=== PATIENT | female | born 1985 | race African-American/Black ===

== ENCOUNTER 2017-02-19 22:03 | Inpatient (IN) | payer MEDICAID ==
[~2017-02-19] VITALS: Ht 167.6 cm; Wt 112.9 kg
[2017-02-19 22:10] VITALS: BP 183/116
[2017-02-19] MEDS ORDERED: Ipratropium 0.02% Inh Soln 2.5ml UD HHN ONE (22:15)
[2017-02-19] MEDS ORDERED: Albuterol ud Inhalation HHN ONE (22:15)
[2017-02-19] MEDS ORDERED: HYDROmorphone 1mg/ml Carpuject IVP ONE (22:15)
--- NOTE | 2017-02-19 22:52 | Emergency Room Report ---
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 Also history of COPD. She presents with shortness of breath the last 2 weeks. Also with leg pain. No trauma. No nausea no vomiting. Worse with movement. Has no medication. Out of urine out of. Not on oxygen at home. She also recently gave a month ago. This is via . Allergies: Coded Allergies: No Known Allergies (Unverified , 02/19/17) Patient History Past Medical History: see triage record, old chart reviewed, COPD Past Surgical History: other Pertinent Family History: none Social History: Denies: smoking Last Menstrual Period: Last week Now: No Immunizations: other Reviewed Nursing Documentation: PMH: Agreed, PSxH: Agreed Nursing Documentation-PMH Past Medical History: No History, Except For Hx Hypertension: Yes Hx Asthma: Yes Hx Seizures: Yes Review of Systems Eye: Denies: blurred vision, eye pain ENT: Denies: ear pain, nose congestion, throat swelling Respiratory: Reports: shortness of breath, Denies: cough Cardiovascular: Denies: chest pain, palpitations Gastrointestinal: Denies: abdominal pain, diarrhea, nausea, vomiting Musculoskeletal: Reports: muscle pain, Denies: back pain, joint pain Skin: Denies: rash Neurological: Denies: headache, numbness Endocrine: Denies: increased thirst, increased urine Hematologic/Lymphatic: Denies: easy bruising All Other Systems: negative except mentioned in HPI Physical Exam Vital Signs Date Time Temp Pulse Resp B/P Pulse Ox O2 Delivery O2 Flow Rate FiO2 02/19/17 21:59 98.2 104 19 183/116 100 Nasal Cannula 4.0 02/19/17 22:26 32 vitals with high blood pressure and hypoxia Sp02 EP Interpretation: abnormal General Appearance: well appearing, alert, mild distress, obese Head: normocephalic, atraumatic Eyes: bilateral eye EOMI, bilateral eye PERRL ENT: hearing grossly normal, normal pharynx Neck: full range of motion, supple, no meningismus Respiratory: chest non-tender, decreased breath sounds Cardiovascular #1: regular rate, rhythm, no murmur Gastrointestinal: normal bowel sounds, non tender, no mass, no organomegaly, no bruit, non-distended Musculoskeletal: back normal, normal range of motion, other - Diffuse left flank tenderness. Psychiatric: mood/affect normal Skin: warm/dry Medical Decision Making Diagnostic Impression: Primary Impression: COPD exacerbation Additional Impressions: Left leg pain Chronic lung disease Morbid obesity ER Course Is a 32-year-old female presents with exacerbation chronic pain. No evidence of pneumonia. 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 She has a shunt. Her bicarbonate was also elevated. She is better controlled now. No evidence of DVT ultrasound is negative. Will start antibiotics and admit for further workup. Lab Results Impression labs with elevated bicarbonate EKG Diagnostic Results EKG Time: 23:23 Rate: normal Rhythm: NSR ST Segments: no acute changes Rhythm Strip Diag. Results Rhythm Strip Time: 23:23 EP Interpretation: yes Rate: 100 Rhythm: NSR, no PVC's Chest X-Ray Diagnostic Results Chest X-Ray Diagnostic Results : Chest X-Ray Ordered: Yes # of Views/Limited/Complete: 1 View Indication: Chest Pain EP Interpretation: Yes Interpretation: no effusion, no pneumothorax, other - Chronic interstitial changes Impression: No acute disease Interpreting ER Provider: Electronically signed by Fahad Zaman MD CT/MRI/US Diagnostic Results CT/MRI/US Diagnostic Results : Imaging Test Ordered: CT chest Impression Read by radiologist. Multiple bilateral area of central predominance bronchiolitis the ground glass in the opacity. Probably chronic. Last Vital Signs Date Time Temp Pulse Resp B/P Pulse Ox O2 Delivery O2 Flow Rate FiO2 02/19/17 22:27 106 18 97 Nasal Cannula 3.0 32 02/19/17 21:59 98.2 183/116 Status: unchanged Disposition: ADMITTED INPATIENT Condition: Serious FAHAD ZAMAN M.D. Feb 19, 2017 22:52
[2017-02-19 23:16] LABS: BASOPHILS % (AUTO) 0.7 % (0.0-2.0); EOSINOPHILS % (AUTO) 0.6 % (0.0-3.0); LYMPHOCYTES % (AUTO) 12.9 % (20.0-45.0); MEAN CORPUSCULAR HEMOGLOBIN 30.9 PG (27.0-31.0); MEAN CORPUSCULAR HGB CONC 30.9 G/DL (32.0-36.0); MEAN CORPUSCULAR VOLUME 100 FL (80-99); MEAN PLATELET VOLUME 8.8 FL (6.5-10.1); MONOCYTES % (AUTO) 6.3 % (1.0-10.0); NEUTROPHILS % (AUTO) 79.5 % (45.0-75.0); PLATELET COUNT 143 K/UL (150-450); RED CELL DISTRIBUTION WIDTH 13.9 % (11.6-14.8); WHITE BLOOD COUNT 9.4 K/UL (4.8-10.8)
[2017-02-19 23:30] LABS: TROPONIN I < 0.30 ng/mL (<=0.30)
[2017-02-19 23:33] LABS: ALANINE AMINOTRANSFERASE 14 U/L (3-33); ALBUMIN/GLOBULIN RATIO 1.4 (1.0-2.7); ANION GAP 5 (5-15); ASPARTATE AMINO TRANSFERASE 18 U/L (5-40); CALCIUM 9.5 mg/dL (8.6-10.2); CHLORIDE 98 mEQ/L (98-107); CREATININE 0.7 mg/dL (0.5-0.9); GLOMERULAR FILTRATION RATE > 60 mL/min (>60); HEMOLYSIS 20; POTASSIUM 3.5 mEQ/L (3.4-4.9); SODIUM 145 mEQ/L (135-145); TOTAL PROTEIN 7.4 g/dL (6.6-8.7)
[2017-02-19 23:40] LABS: CARBON DIOXIDE 42 mEQ/L (20-30)
[2017-02-19 23:44] LABS: CKMB 5.4 ng/mL (< 3.8); INR 0.9 (0.9-1.1); PROTHROMBIN TIME 9.3 SEC (9.30-11.50)
[2017-02-20] VITALS (8 sets, daily range): BP systolic 142–162; BP diastolic 55–102
[2017-02-20] MEDS ORDERED: Solu-MEDROL 125mg Inj IVP ONE (02:00)
[2017-02-20] MEDS ORDERED: Albuterol ud Inhalation HHN PRN (07:00)
[2017-02-20] MEDS ORDERED: Ketorolac 30mg Inj IV PRN (07:00)
[2017-02-20] MEDS ORDERED: Morphine Sulfate 4mg/ml Inj IVP PRN (07:00)
[2017-02-20] MEDS ORDERED: Promethazine/Codeine 5ml UD ORAL PRN (07:00)
[2017-02-20] MEDS ORDERED: LORazepam Inj 2mg/ml 1ml IV PRN (07:00)
[2017-02-20] MEDS ORDERED: Nitroglycerin Subl 0.4mg tab (Bottle Of 25) SL PRN (07:00)
[2017-02-20] MEDS: Theophylline ER 100mg ORAL SCH ×2 (08:48→20:38)
[2017-02-20] MEDS: Morphine Sulfate 2mg/ml Inj IVP PRN ×4 (08:49→22:46)
[2017-02-20] MEDS: Heparin 5000 units/ml inj SUBQ SCH ×2 (09:00→20:23)
--- NOTE | 2017-02-20 10:13 | Diagnostic Imaging Report ---
Clinical Indication: Shortness of breath Technique: Spiral acquisitions obtained through the chest. No IV contrast utilized, reason not stated. Multiplanar reconstructions generated. Total dose length product 03/18/43 mGycm. CTDIvol(s) 29 mGy. Dose reduction achieved using automated exposure control Comparison: None Findings:Patchy areas of groundglass opacity are seen distributed throughout both lungs but predominantly in the upper lobes. Atelectasis or scarring is seen in the left lower lobe. Some dense there are consolidative opacities are seen in the right lower lobe. No masses. No effusions. The heart size is normal. No pericardial effusion. No mediastinal or hilar mass or adenopathy. There are prominent but not frankly enlarged bilateral axillary nodes. The thyroid is diffusely enlarged, no focal abnormality. There is ventriculoperitoneal shunt tubing in the right chest wall. The bones are unremarkable. The included upper abdominal anatomy is remarkable for the presence of a 2 mm upper pole left kidney stone. Impression: Mosaic mosaic groundglass opacity in both lungs, as described. Broad differential includes infection, edema, interstitial disease, post inflammatory changes. Incidental finding 2 mm left upper pole renal stone This agrees with the preliminary interpretation provided overnight by [facility] teleradiology service. The CT scanner at [facility] is accredited by the [employer] and the scans are performed using protocols designed to limit radiation exposure to as low as reasonably achievable to attain images of sufficient resolution adequate for diagnostic evaluation.
--- NOTE | 2017-02-20 11:34 | Diagnostic Imaging Report ---
Indication: SOB Technique: One view of the chest Comparison: none Findings: Faint hazy parenchymal opacities are demonstrated bilaterally. The heart is upper limits of normal in size. No dense consolidation. No pleural effusions Impression: Hazy faint bilateral parenchymal opacities, nonspecific
[2017-02-20] MEDS: Solu-MEDROL 125mg Inj IV SCH ×3 (12:38→23:21)
[2017-02-20] MEDS ORDERED: Piperacillin/Tazobactam 2.25 GM in D5W 55 ML IV SCH (14:00)
[2017-02-20] MEDS: Zoysn 3.37gm in D5W 110ml IVPB SCH ×2 (14:27→22:02)
--- NOTE | 2017-02-20 15:13 | History and Physical ---
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 She presented to ER with shortness of breath the last 2 weeks. Also with leg pain. No trauma. No nausea no vomiting. Worse with movement. Has no medication. Out of urine out of. Not on oxygen at home. she is admitted for possible pneumonia. Allergies: Coded Allergies: No Known Allergies (Unverified , 02/19/17) Patient History Healthcare decision maker Resuscitation status Full Code Advanced Directive on File No Past Medical/Surgical History Past Medical/Surgical History: (1) Seizures (2) Ventriculo-peritoneal shunt status Review of Systems All Other Systems: negative except mentioned in HPI Physical Exam General Appearance: WD/WN Lines, tubes and drains: peripheral HEENT: normocephalic, anicteric Neck: non-tender Respiratory/Chest: chest wall non-tender, lungs clear Breasts: no masses Cardiovascular/Chest: normal rate Abdomen: normal bowel sounds, non tender Genitourinary/Rectal: normal genital exam, normal rectal exam Extremities: normal range of motion, non-tender Skin Exam: normal pigmentation Last 24 Hour Vital Signs Date Time Temp Pulse Resp B/P Pulse Ox O2 Delivery O2 Flow Rate FiO2 02/20/17 12:00 97.9 115 18 149/102 92 Room Air 02/20/17 08:00 96.8 104 20 158/98 93 Room Air 02/20/17 04:00 98.1 81 20 142/55 93 Nasal Cannula 2.0 02/20/17 02:53 98.4 90 20 156/86 92 Nasal Cannula 3.0 02/20/17 02:34 98.2 75 22 154/96 96 Nasal Cannula 3.0 32 02/20/17 01:50 75 22 154/96 96 3.0 02/20/17 00:00 83 19 162/102 95 Nasal Cannula 3.0 02/19/17 23:40 98.2 02/19/17 22:47 101 16 Nasal Cannula 3.0 02/19/17 22:27 106 18 97 Nasal Cannula 3.0 32 02/19/17 22:26 106 18 Nasal Cannula 3.0 32 02/19/17 22:10 98.2 19 183/116 100 Nasal Cannula 4.0 02/19/17 21:59 98.2 104 19 183/116 100 Nasal Cannula 4.0 Intake and Output 02/19/17 02/20/17 19:00 07:00 # Voids 1 Laboratory Tests Test 02/19/17 22:45 White Blood Count 9.4 K/UL (4.8-10.8) Red Blood Count 3.70 M/UL (4.20-5.40) L Hemoglobin 11.5 G/DL (12.0-16.0) L Hematocrit 37.1 % (37.0-47.0) Mean Corpuscular Volume 100 FL (80-99) H Mean Corpuscular Hemoglobin 30.9 PG (27.0-31.0) Mean Corpuscular Hemoglobin Concent 30.9 G/DL (32.0-36.0) L Red Cell Distribution Width 13.9 % (11.6-14.8) Platelet Count 143 K/UL (150-450) L Mean Platelet Volume 8.8 FL (6.5-10.1) Neutrophils (%) (Auto) 79.5 % (45.0-75.0) H Lymphocytes (%) (Auto) 12.9 % (20.0-45.0) L Monocytes (%) (Auto) 6.3 % (1.0-10.0) Eosinophils (%) (Auto) 0.6 % (0.0-3.0) Basophils (%) (Auto) 0.7 % (0.0-2.0) Prothrombin Time 9.3 SEC (9.30-11.50) Prothromb Time International Ratio 0.9 (0.9-1.1) Activated Partial Thromboplast Time 27 SEC (23-33) Sodium Level 145 mEQ/L (135-145) Potassium Level 3.5 mEQ/L (3.4-4.9) Chloride Level 98 mEQ/L (98-107) Carbon Dioxide Level 42 mEQ/L (20-30) *H Anion Gap 5 (5-15) Blood Urea Nitrogen 8 mg/dL (7-23) Creatinine 0.7 mg/dL (0.5-0.9) Estimat Glomerular Filtration Rate > 60 mL/min (>60) Glucose Level 73 mg/dL (74-106) L Calcium Level 9.5 mg/dL (8.6-10.2) Total Bilirubin 0.3 mg/dL (0.0-1.2) Aspartate Amino Transf (AST/SGOT) 18 U/L (5-40) Alanine Aminotransferase (ALT/SGPT) 14 U/L (3-33) Alkaline Phosphatase 56 U/L (35-104) Total Creatine Kinase 135 U/L (26-140) Creatine Kinase MB 5.4 ng/mL (< 3.8) H Creatine Kinase MB Relative Index 4.0 Troponin I < 0.30 ng/mL (<=0.30) Pro-B-Type Natriuretic Peptide 113 pg/mL (0-125) Total Protein 7.4 g/dL (6.6-8.7) Albumin 4.4 g/dL (3.5-5.2) Globulin 3.0 g/dL Albumin/Globulin Ratio 1.4 (1.0-2.7) Height (Feet): 5 Height (Inches): 6.00 Weight (Pounds): 249 Medications Current Medications Medications (Trade) Dose Ordered Sig/Selvin Route PRN Reason Start Time Stop Time Status Last Admin Dose Admin Albuterol/ Ipratropium (DuoNeb 0.5-3(2.5)mg/3ml) 3 ml EVERY 4 HOURS PRN HHN dyspnea 02/20/17 07:00 02/25/17 06:59 Dextrose STAT PRN IV Hypoglycemia 02/20/17 07:00 03/22/17 06:59 Heparin Sodium (Porcine) (Heparin 5000 units/ml) 5,000 units EVERY 12 HOURS SUBQ 02/20/17 09:00 03/22/17 08:59 Ketorolac Tromethamine (Toradol 30mg) 30 mg EVERY 8 HOURS PRN IV moderate pain 4-6 02/20/17 07:00 02/25/17 06:59 Lorazepam (Ativan 2mg/ml 1ml) 0.5 mg Q4H PRN IV For Anxiety 02/20/17 07:00 02/27/17 06:59 Methylprednisolone Sodium Succinate (Solu-MEDROL) 60 mg EVERY 6 HOURS IV 02/20/17 12:00 03/22/17 11:59 02/20/17 12:38 Morphine Sulfate (Morphine Sulfate) 2 mg EVERY 4 HOURS PRN IVP severe pain 7-10 02/20/17 07:00 02/27/17 06:59 02/20/17 14:28 Nitroglycerin (Ntg) 0.4 mg Q5M X 3 DOSES PRN SL Prn Chest Pain 02/20/17 07:00 03/22/17 06:59 Ondansetron HCl (Zofran) 4 mg Q6H PRN IVP Nausea & Vomiting 02/20/17 07:00 03/22/17 06:59 Piperacillin Sod/ Tazobactam Sod/ Dextrose (Zosyn/D5W) 110 ml @ 27.5 mls/hr EVERY 8 HOURS IVPB 02/20/17 14:00 02/25/17 13:59 02/20/17 14:27 Promethazine HCl/ Codeine (Phenergan with Codeine) 5 ml EVERY 6 HOURS PRN ORAL cough 02/20/17 07:00 03/22/17 06:59 Temazepam (Restoril) 15 mg HSPRN PRN ORAL Insomnia 02/20/17 07:00 02/27/17 06:59 Theophylline (Paresh-Dur) 100 mg EVERY 12 HOURS ORAL 02/20/17 09:00 03/22/17 08:59 02/20/17 08:48 Assessment/Plan Problem List: (1) Aspiration pneumonia ICD Codes: J69.0 - Pneumonitis due to inhalation of food and vomit SNOMED: 063898662 (2) COPD exacerbation ICD Codes: J44.1 - Chronic obstructive pulmonary disease with (acute) exacerbation SNOMED: 540581955, 017410735 (3) Ventriculo-peritoneal shunt status ICD Codes: Z98.2 - Presence of cerebrospinal fluid drainage device SNOMED: 49879002, 403953167 Assessment/Plan respiratory treatment IV anti biotics check sputum neuro evaluation CRISTINA BRAMBILA Feb 20, 2017 15:13
[2017-02-20 16:38] LABS: APPEARANCE,URINE SLIGHTLY CLOUDY; KETONES,URINE NEGATIVE (NEGATIVE); LEUKOCYTE ESTERASE ,URINE 1+ (NEGATIVE); NITRITE,URINE NEGATIVE (NEGATIVE); PH,URINE 6 (4.5-8.0); PROTEIN,URINE 4+ (NEGATIVE); UROBILINOGEN,URINE NORMAL MG/DL (0.0-1.0)
[2017-02-20 17:12] LABS: SQUAMOUS EPITHELIAL CELL,UR OCCASIONAL /LPF (NONE/OCC)
[2017-02-20 17:13] LABS: TRICHOMONAS,URINE OCCASIONAL /HPF
[2017-02-21] VITALS: BP 150/73
[2017-02-21] MEDS: Morphine Sulfate 2mg/ml Inj IVP PRN ×5 (02:50→20:49)
[2017-02-21 04:00] VITALS: BP 147/82
[2017-02-21] MEDS: Zoysn 3.37gm in D5W 110ml IVPB SCH ×4 (06:00→18:07)
[2017-02-21] MEDS: Solu-MEDROL 125mg Inj IV SCH ×3 (06:06→18:06)
[2017-02-21 06:23] LABS: MEAN CORPUSCULAR HEMOGLOBIN 31.3 PG (27.0-31.0); MEAN CORPUSCULAR HGB CONC 31.4 G/DL (32.0-36.0); MEAN CORPUSCULAR VOLUME 100 FL (80-99); PLATELET COUNT 182 K/UL (150-450); RED BLOOD COUNT 3.74 M/UL (4.20-5.40); RED CELL DISTRIBUTION WIDTH 13.4 % (11.6-14.8); WHITE BLOOD COUNT 10.2 K/UL (4.8-10.8)
[2017-02-21 06:37] LABS: ALANINE AMINOTRANSFERASE 10 U/L (3-33); ALBUMIN/GLOBULIN RATIO 1.3 (1.0-2.7); ASPARTATE AMINO TRANSFERASE 11 U/L (5-40); CHLORIDE 95 mEQ/L (98-107); CREATININE 0.8 mg/dL (0.5-0.9); CRP QUANT 0.6 mg/dL (< 0.5); GLOMERULAR FILTRATION RATE > 60 mL/min (>60); HEMOLYSIS 1; MAGNESIUM 1.9 mg/dL (1.7-2.5); PHOSPHORUS 3.2 mg/dL (2.5-4.8); SODIUM 141 mEQ/L (135-145); TOTAL PROTEIN 7.1 g/dL (6.6-8.7)
[2017-02-21 06:42] LABS: ANION GAP 5 (5-15)
[2017-02-21 06:49] LABS: CARBON DIOXIDE 41 mEQ/L (20-30)
[2017-02-21 08:00] VITALS: BP 150/82
[2017-02-21 08:31] LABS: ERYTHROCYTE SEDIMENTATION RATE 30 MM/HR (0-20)
[2017-02-21] MEDS: Theophylline ER 100mg ORAL SCH ×2 (08:58→20:49)
[2017-02-21] MEDS: Heparin 5000 units/ml inj SUBQ SCH ×2 (09:00→20:51)
[2017-02-21 12:00] VITALS: BP 147/87
--- NOTE | 2017-02-21 14:34 | Neurology Progress Note ---
Objective Physical Exam Last Vital Signs Date Time Temp Pulse Resp B/P Pulse Ox O2 Delivery O2 Flow Rate FiO2 02/21/17 12:00 97.9 102 20 147/87 94 Nasal Cannula 2.0 02/21/17 00:15 28 Laboratory Tests Test 02/20/17 16:00 02/21/17 05:00 Urine Color Pale yellow Urine Appearance Slightly cloudy Urine pH 6 (4.5-8.0) Urine Specific [place] 1.015 (1.005-1.035) Urine Protein 4+ (NEGATIVE) H Urine Glucose (UA) Negative (NEGATIVE) Urine Ketones Negative (NEGATIVE) Urine Occult Blood Negative (NEGATIVE) Urine Nitrite Negative (NEGATIVE) Urine Bilirubin Negative (NEGATIVE) Urine Urobilinogen Normal MG/DL (0.0-1.0) Urine Leukocyte Esterase 1+ (NEGATIVE) H Urine RBC 2-4 /HPF (0 - 2) H Urine WBC 2-4 /HPF (0 - 2) Urine Squamous Epithelial Cells Occasional /LPF Urine Bacteria None /HPF (NONE) Urine Trichomonas Occasional /HPF (NONE) Urine Opiates Screen Positive (NEGATIVE) H Urine Barbiturates Screen Negative (NEGATIVE) Phencyclidine (PCP) Screen Negative (NEGATIVE) Urine Amphetamines Screen Negative (NEGATIVE) Urine Benzodiazepines Screen Negative (NEGATIVE) Urine Cocaine Screen Negative (NEGATIVE) Urine Marijuana (THC) Screen Negative (NEGATIVE) White Blood Count 10.2 K/UL (4.8-10.8) Red Blood Count 3.74 M/UL (4.20-5.40) L Hemoglobin 11.7 G/DL (12.0-16.0) L Hematocrit 37.3 % (37.0-47.0) Mean Corpuscular Volume 100 FL (80-99) H Mean Corpuscular Hemoglobin 31.3 PG (27.0-31.0) H Mean Corpuscular Hemoglobin Concent 31.4 G/DL (32.0-36.0) L Red Cell Distribution Width 13.4 % (11.6-14.8) Platelet Count 182 K/UL (150-450) Mean Platelet Volume 9.0 FL (6.5-10.1) Neutrophils (%) (Auto) % (45.0-75.0) Lymphocytes (%) (Auto) % (20.0-45.0) Monocytes (%) (Auto) % (1.0-10.0) Eosinophils (%) (Auto) % (0.0-3.0) Basophils (%) (Auto) % (0.0-2.0) Erythrocyte Sedimentation Rate 30 MM/HR (0-20) H Sodium Level 141 mEQ/L (135-145) Potassium Level 4.0 mEQ/L (3.4-4.9) Chloride Level 95 mEQ/L (98-107) L Carbon Dioxide Level 41 mEQ/L (20-30) *H Anion Gap 5 (5-15) Blood Urea Nitrogen 14 mg/dL (7-23) Creatinine 0.8 mg/dL (0.5-0.9) Estimat Glomerular Filtration Rate > 60 mL/min (>60) Glucose Level 149 mg/dL (74-106) H Calcium Level 10.0 mg/dL (8.6-10.2) Phosphorus Level 3.2 mg/dL (2.5-4.8) Magnesium Level 1.9 mg/dL (1.7-2.5) Total Bilirubin 0.3 mg/dL (0.0-1.2) Aspartate Amino Transf (AST/SGOT) 11 U/L (5-40) Alanine Aminotransferase (ALT/SGPT) 10 U/L (3-33) Alkaline Phosphatase 48 U/L (35-104) C-Reactive Protein, Quantitative 0.6 mg/dL (< 0.5) H Total Protein 7.1 g/dL (6.6-8.7) Albumin 4.1 g/dL (3.5-5.2) Globulin 3.0 g/dL Albumin/Globulin Ratio 1.3 (1.0-2.7) Impression/Recommendations Recommendations # [id number] TELLO VAUGHAN Feb 21, 2017 14:34
--- NOTE | 2017-02-21 14:52 | Infectious Diseases Prog Note ---
Assessment/Plan Assessment/Plan ID consult dictated # [id number] Subjective Allergies: Coded Allergies: No Known Allergies (Unverified , 02/19/17) Objective Vital Signs Last 24 Hour Vital Signs Date Time Temp Pulse Resp B/P Pulse Ox O2 Delivery O2 Flow Rate FiO2 02/21/17 12:00 97.9 102 20 147/87 94 Nasal Cannula 2.0 02/21/17 09:28 97.3 02/21/17 08:20 100 18 94 Nasal Cannula 2.0 02/21/17 08:13 92 18 93 Nasal Cannula 2.0 02/21/17 08:00 97.7 116 20 150/82 93 Nasal Cannula 2.0 02/21/17 04:00 97.3 92 20 147/82 92 Nasal Cannula 2.0 02/21/17 00:15 97 18 95 Nasal Cannula 2.0 28 02/21/17 00:10 95 18 95 Nasal Cannula 2.0 28 02/21/17 00:00 97.5 98 20 150/73 93 Nasal Cannula 2.0 02/20/17 22:02 161/88 02/20/17 20:15 102 02/20/17 20:00 97.7 108 20 161/88 93 Nasal Cannula 2.0 02/20/17 15:58 97.7 96 18 150/98 93 Nasal Cannula 2.0 02/20/17 15:28 95 18 94 Nasal Cannula 2.0 28 02/20/17 15:25 92 18 94 Nasal Cannula 2.0 28 Height (Feet): 5 Height (Inches): 6.00 Weight (Pounds): 249 Laboratory Tests Test 02/20/17 16:00 02/21/17 05:00 Urine Color Pale yellow Urine Appearance Slightly cloudy Urine pH 6 (4.5-8.0) Urine Specific [place] 1.015 (1.005-1.035) Urine Protein 4+ (NEGATIVE) H Urine Glucose (UA) Negative (NEGATIVE) Urine Ketones Negative (NEGATIVE) Urine Occult Blood Negative (NEGATIVE) Urine Nitrite Negative (NEGATIVE) Urine Bilirubin Negative (NEGATIVE) Urine Urobilinogen Normal MG/DL (0.0-1.0) Urine Leukocyte Esterase 1+ (NEGATIVE) H Urine RBC 2-4 /HPF (0 - 2) H Urine WBC 2-4 /HPF (0 - 2) Urine Squamous Epithelial Cells Occasional /LPF Urine Bacteria None /HPF (NONE) Urine Trichomonas Occasional /HPF (NONE) Urine Opiates Screen Positive (NEGATIVE) H Urine Barbiturates Screen Negative (NEGATIVE) Phencyclidine (PCP) Screen Negative (NEGATIVE) Urine Amphetamines Screen Negative (NEGATIVE) Urine Benzodiazepines Screen Negative (NEGATIVE) Urine Cocaine Screen Negative (NEGATIVE) Urine Marijuana (THC) Screen Negative (NEGATIVE) White Blood Count 10.2 K/UL (4.8-10.8) Red Blood Count 3.74 M/UL (4.20-5.40) L Hemoglobin 11.7 G/DL (12.0-16.0) L Hematocrit 37.3 % (37.0-47.0) Mean Corpuscular Volume 100 FL (80-99) H Mean Corpuscular Hemoglobin 31.3 PG (27.0-31.0) H Mean Corpuscular Hemoglobin Concent 31.4 G/DL (32.0-36.0) L Red Cell Distribution Width 13.4 % (11.6-14.8) Platelet Count 182 K/UL (150-450) Mean Platelet Volume 9.0 FL (6.5-10.1) Neutrophils (%) (Auto) % (45.0-75.0) Lymphocytes (%) (Auto) % (20.0-45.0) Monocytes (%) (Auto) % (1.0-10.0) Eosinophils (%) (Auto) % (0.0-3.0) Basophils (%) (Auto) % (0.0-2.0) Erythrocyte Sedimentation Rate 30 MM/HR (0-20) H Sodium Level 141 mEQ/L (135-145) Potassium Level 4.0 mEQ/L (3.4-4.9) Chloride Level 95 mEQ/L (98-107) L Carbon Dioxide Level 41 mEQ/L (20-30) *H Anion Gap 5 (5-15) Blood Urea Nitrogen 14 mg/dL (7-23) Creatinine 0.8 mg/dL (0.5-0.9) Estimat Glomerular Filtration Rate > 60 mL/min (>60) Glucose Level 149 mg/dL (74-106) H Calcium Level 10.0 mg/dL (8.6-10.2) Phosphorus Level 3.2 mg/dL (2.5-4.8) Magnesium Level 1.9 mg/dL (1.7-2.5) Total Bilirubin 0.3 mg/dL (0.0-1.2) Aspartate Amino Transf (AST/SGOT) 11 U/L (5-40) Alanine Aminotransferase (ALT/SGPT) 10 U/L (3-33) Alkaline Phosphatase 48 U/L (35-104) C-Reactive Protein, Quantitative 0.6 mg/dL (< 0.5) H Total Protein 7.1 g/dL (6.6-8.7) Albumin 4.1 g/dL (3.5-5.2) Globulin 3.0 g/dL Albumin/Globulin Ratio 1.3 (1.0-2.7) Triglycerides Level Pending Cholesterol Level Pending LDL Cholesterol Pending HDL Cholesterol Pending Cholesterol/HDL Ratio Pending Vitamin B12 Level Pending Current Medications Medications (Trade) Dose Ordered Sig/Selvin Route PRN Reason Start Time Stop Time Status Last Admin Dose Admin Albuterol/ Ipratropium (DuoNeb 0.5-3(2.5)mg/3ml) 3 ml EVERY 4 HOURS PRN HHN dyspnea 02/20/17 07:00 02/25/17 06:59 Clonidine HCl 0.1 mg 0.1 mg Q6H PRN ORAL SBP>160 mmHg 02/20/17 21:45 03/22/17 21:44 02/20/17 22:02 Dextrose (Dextrose 50%) STAT PRN IV Hypoglycemia 02/20/17 07:00 03/22/17 06:59 Heparin Sodium (Porcine) (Heparin 5000 units/ml) 5,000 units EVERY 12 HOURS SUBQ 02/20/17 09:00 03/22/17 08:59 02/21/17 09:00 Ketorolac Tromethamine (Toradol 30mg) 30 mg EVERY 8 HOURS PRN IV moderate pain 4-6 02/20/17 07:00 02/25/17 06:59 Levetiracetam (Keppra) 500 mg Q12HR ORAL 02/21/17 14:30 03/23/17 14:29 UNV Lorazepam (Ativan 2mg/ml 1ml) 0.5 mg Q4H PRN IV For Anxiety 02/20/17 07:00 02/27/17 06:59 Methylprednisolone Sodium Succinate (Solu-MEDROL) 60 mg EVERY 6 HOURS IV 02/20/17 12:00 03/22/17 11:59 02/21/17 12:07 Morphine Sulfate (Morphine Sulfate) 2 mg EVERY 4 HOURS PRN IVP severe pain 7-10 02/20/17 07:00 02/27/17 06:59 02/21/17 13:28 Nitroglycerin (Ntg) 0.4 mg Q5M X 3 DOSES PRN SL Prn Chest Pain 02/20/17 07:00 03/22/17 06:59 Ondansetron HCl (Zofran) 4 mg Q6H PRN IVP Nausea & Vomiting 02/20/17 07:00 03/22/17 06:59 Piperacillin Sod/ Tazobactam Sod/ Dextrose (Zosyn/D5W) 110 ml @ 27.5 mls/hr Q8H IVPB 02/21/17 10:00 02/25/17 17:59 02/21/17 09:36 Promethazine HCl/ Codeine (Phenergan with Codeine) 5 ml EVERY 6 HOURS PRN ORAL cough 02/20/17 07:00 03/22/17 06:59 Temazepam (Restoril) 15 mg HSPRN PRN ORAL Insomnia 02/20/17 07:00 02/27/17 06:59 Theophylline (Paresh-Dur) 100 mg EVERY 12 HOURS ORAL 02/20/17 09:00 03/22/17 08:59 02/21/17 08:58 BERNARD KYLE Feb 21, 2017 14:52
[2017-02-21 15:00] LABS: CHOLESTEROL/HDL RATIO 1.9 (3.3-4.4)
[2017-02-21 16:03] VITALS: BP 156/98
--- NOTE | 2017-02-21 16:24 | Pulmonology Progress Note ---
Assessment/Plan Problems: (1) Aspiration pneumonia (2) COPD exacerbation (3) Ventriculo-peritoneal shunt status Assessment/Plan check HIV continue abc check sputum respiratory treatment Subjective ROS Limited/Unobtainable: No Constitutional: Reports: no symptoms HEENT: Repors: no symptoms Allergies: Coded Allergies: No Known Allergies (Unverified , 02/19/17) Objective Last 24 Hour Vital Signs Date Time Temp Pulse Resp B/P Pulse Ox O2 Delivery O2 Flow Rate FiO2 02/21/17 16:03 97.1 85 21 156/98 97 Room Air 02/21/17 14:55 Nasal Cannula 2.0 02/21/17 14:54 Nasal Cannula 2.0 02/21/17 13:58 97.3 02/21/17 12:00 97.9 102 20 147/87 94 Nasal Cannula 2.0 02/21/17 08:20 100 18 94 Nasal Cannula 2.0 02/21/17 08:13 92 18 93 Nasal Cannula 2.0 02/21/17 08:00 97.7 116 20 150/82 93 Nasal Cannula 2.0 02/21/17 04:00 97.3 92 20 147/82 92 Nasal Cannula 2.0 02/21/17 00:15 97 18 95 Nasal Cannula 2.0 28 02/21/17 00:10 95 18 95 Nasal Cannula 2.0 28 02/21/17 00:00 97.5 98 20 150/73 93 Nasal Cannula 2.0 02/20/17 22:02 161/88 02/20/17 20:15 102 02/20/17 20:00 97.7 108 20 161/88 93 Nasal Cannula 2.0 Intake and Output 02/20/17 02/21/17 19:00 07:00 Intake Total 510 ml 510.0 ml Balance 510 ml 510.0 ml Intake Oral 510 ml 400 ml IV Total 110.0 ml # Voids 3 5 General Appearance: WD/WN HEENT: normocephalic, atraumatic Respiratory/Chest: chest wall non-tender, normal breath sounds Breasts: no masses Cardiovascular: normal peripheral pulses Abdomen: normal bowel sounds, soft, non tender Genitourinary: normal external genitalia Extremities: no clubbing Neurologic/Psychiatric: solution professional II-XII grossly normal Lymphatic: no neck adenopathy Laboratory Tests 02/21/17 05:00: White Blood Count 10.2, Red Blood Count 3.74L, Hemoglobin 11.7L, Hematocrit 37.3 , Mean Corpuscular Volume 100H, Mean Corpuscular Hemoglobin 31.3H, Mean Corpuscular Hemoglobin Concent 31.4L, Red Cell Distribution Width 13.4, Platelet Count 182, Mean Platelet Volume 9.0, Neutrophils (%) (Auto) , Lymphocytes (%) (Auto) , Monocytes (%) (Auto) , Eosinophils (%) (Auto) , Basophils (%) (Auto) , Erythrocyte Sedimentation Rate 30H, Sodium Level 141, Potassium Level 4.0, Chloride Level 95L, Carbon Dioxide Level 41*H, Anion Gap 5 , Blood Urea Nitrogen 14, Creatinine 0.8, Estimat Glomerular Filtration Rate > 60, Glucose Level 149H, Calcium Level 10.0, Phosphorus Level 3.2, Magnesium Level 1.9, Total Bilirubin 0.3, Aspartate Amino Transf (AST/SGOT) 11, Alanine Aminotransferase (ALT/SGPT) 10, Alkaline Phosphatase 48, C-Reactive Protein, Quantitative 0.6H, Total Protein 7.1, Albumin 4.1, Globulin 3.0, Albumin/ Globulin Ratio 1.3, Triglycerides Level 37, Cholesterol Level 198, LDL Cholesterol 84, HDL Cholesterol 107H, Cholesterol/HDL Ratio 1.9L, Vitamin B12 Level 439 Current Medications Medications (Trade) Dose Ordered Sig/Selvin Route PRN Reason Start Time Stop Time Status Last Admin Dose Admin Albuterol/ Ipratropium (DuoNeb 0.5-3(2.5)mg/3ml) 3 ml EVERY 4 HOURS PRN HHN dyspnea 02/20/17 07:00 02/25/17 06:59 Clonidine HCl 0.1 mg 0.1 mg Q6H PRN ORAL SBP>160 mmHg 02/20/17 21:45 03/22/17 21:44 02/20/17 22:02 Dextrose (Dextrose 50%) STAT PRN IV Hypoglycemia 02/20/17 07:00 03/22/17 06:59 Heparin Sodium (Porcine) (Heparin 5000 units/ml) 5,000 units EVERY 12 HOURS SUBQ 02/20/17 09:00 03/22/17 08:59 02/21/17 09:00 Ketorolac Tromethamine (Toradol 30mg) 30 mg EVERY 8 HOURS PRN IV moderate pain 4-6 02/20/17 07:00 02/25/17 06:59 Levetiracetam (Keppra) 500 mg Q12HR ORAL 02/21/17 15:15 03/23/17 15:14 02/21/17 16:04 Lorazepam (Ativan 2mg/ml 1ml) 0.5 mg Q4H PRN IV For Anxiety 02/20/17 07:00 02/27/17 06:59 Methylprednisolone Sodium Succinate (Solu-MEDROL) 60 mg EVERY 6 HOURS IV 02/20/17 12:00 03/22/17 11:59 02/21/17 12:07 Morphine Sulfate (Morphine Sulfate) 2 mg EVERY 4 HOURS PRN IVP severe pain 7-10 02/20/17 07:00 02/27/17 06:59 02/21/17 13:28 Nitroglycerin (Ntg) 0.4 mg Q5M X 3 DOSES PRN SL Prn Chest Pain 02/20/17 07:00 03/22/17 06:59 Ondansetron HCl (Zofran) 4 mg Q6H PRN IVP Nausea & Vomiting 02/20/17 07:00 03/22/17 06:59 Piperacillin Sod/ Tazobactam Sod/ Dextrose (Zosyn/D5W) 110 ml @ 27.5 mls/hr Q8H IVPB 02/21/17 10:00 02/25/17 17:59 02/21/17 09:36 Promethazine HCl/ Codeine (Phenergan with Codeine) 5 ml EVERY 6 HOURS PRN ORAL cough 02/20/17 07:00 03/22/17 06:59 Temazepam (Restoril) 15 mg HSPRN PRN ORAL Insomnia 02/20/17 07:00 02/27/17 06:59 Theophylline (Paresh-Dur) 100 mg EVERY 12 HOURS ORAL 02/20/17 09:00 03/22/17 08:59 02/21/17 08:58 CRISTINA BRAMBILA Feb 21, 2017 16:24
[2017-02-21 21:00] VITALS: BP 104/74
[2017-02-22] VITALS (7 sets, daily range): BP systolic 104–164; BP diastolic 72–98
--- NOTE | 2017-02-22 00:45 | Consultation ---
DATE OF CONSULTATION: 02/21/2017 NEUROLOGICAL CONSULTATION REQUESTING PHYSICIAN: Jennifer Hull M.D. HISTORY OF PRESENT ILLNESS: The patient is a 32-year-old female seen in neurological consultation to evaluate a new onset of seizure activities. The patient informed me that she was born with evidence of obstructive hydrocephalus required ventriculoperitoneal shunting, she also had history of seizures at a very early age. Seizures over time stopped and she was seizure-free until yesterday. The patient indicates that yesterday while in a car, she had witnessed episode of generalized shaking and loss of consciousness and she was brought to emergency room. Vital signs on admission included blood pressure of 193/116, heart rate 104, and respirations 19. Her lab work on admission included mild anemia, hemoglobin 11.5, sedimentation rate of 30, coagulation panel was normal, urinalysis 1+ leukocyte esterase, toxicology panel positive for opiates, and chemistry panel included carbon dioxide of 42, glucose 73, otherwise normal study. Imaging included a chest x-ray, which revealed hazy bilateral pleural opacities, nonspecific, this followed by CT of the chest revealing mosaic ground-glass opacity, both lungs, incidentally 2 mm left upper pole renal stone noted. Venous duplex left lower extremity within normal limits, no DVT. Since admission till present, there was no further paroxysmal event. PAST MEDICAL HISTORY: The patient has a history of COPD, morbid obesity, and hypertension. She is one month section. She was complaining of muscle pain. The patient now informs me that the last three weeks, she has persistent left lower extremity pain and low back pain. EKG normal sinus rhythm, no PVCs. Following admission, the patient is being maintained on IV fluids, antibiotics, methylprednisolone, morphine p.r.n., nitro, Zofran p.r.n., Phenergan, Restoril, and Paresh-Dur. REVIEW OF SYSTEMS: Review of records included a note by paramedics who described the patient was found on the front porch at her home complaining of right foot pain x3 weeks, stabbing pain. She was hypertensive and tachycardic, but there was no complaints of chest pain. No nausea. No headaches. No vision abnormalities. The patient reported that she is on oxygen at home due to COPD. Aches and pains in her left lower extremity. Pain in both arms. Denies headache or dizziness. Denies vision abnormalities. No chest pain or palpitation. She has some shortness of breath on exertion. FAMILY HISTORY: Noncontributory. SOCIAL HISTORY: The patient lives at home with her . She is a year ago, but they have five children. PHYSICAL EXAMINATION: GENERAL: Well-developed, but morbidly obese female, now lying in bed while on the phone. VITAL SIGNS: Stable. Blood pressure is 147/87 and heart rate of 102. HEENT: Head is normocephalic. INFORMATICS DEVELOPER shunt in place noted. There is a right-sided exotropia. NECK: Supple. No meningeal signs. MUSCULOSKELETAL: Palpable tenderness diffusely both upper extremities and left lower extremity, the patient was screaming and was not allowing to test left leg. Peripheral pulses, 1+ symmetric. No skin discoloration noted. MENTAL STATUS: Alert and oriented x3 with no evidence of aphasia or apraxia. Cognitive function normal. Emotional and labile. CRANIAL NERVE II: Pupils both responding to light and accommodation. Extraocular movements, exotropia, but range of motion normal. CRANIAL NERVE V: Normal corneal responses. CRANIAL NERVE VII: No facial asymmetry. CRANIAL NERVE VIII: Grossly normal hearing. CRANIAL NERVE IX THROUGH XII: Tongue is in midline. Symmetric palate elevation. MOTOR EXAMINATION: Able to lift both upper extremities against the gravity. The patient indicated that she is unable to move her left leg, although when lifted at 10 degrees, she was able to hold it off, she was moving left foot, but slightly, right leg spastic, weakness 5-/5. Deep tendon reflexes are 3+ bilaterally. Plantar responses flexor on the right and extensor on the left. SENSORY EXAM: Normal to pin stimulation both upper extremities and right lower extremity, but not having pain sensation in her left lower extremity. IMPRESSION: 1. Single generalized clonic-tonic seizure episode, chronic seizure disorder. 2. Obstructive hydrocephalus, on ventriculoperitoneal shunt. 3. Cerebral palsy with paraparesis, more on the left. 4. Chronic obstructive pulmonary disease exacerbation. 5. Hypertension. 6. Morbid obesity. DISCUSSION: The patient describes episodes of generalized clonic-tonic movement, which she unable to recall, but was reported by her . The patient do recall aura with visual hallucinations lasting one or two minutes followed by loss of consciousness. We will obtain CT of the brain without contrast and electroencephalogram, and we will start the patient on anticonvulsants, given high risk of recurrent seizures in the patient with organic brain. We will start on Keppra 500 mg b.i.d. The patient has persistent pain in her left lower extremity, this may related to lumbar spine radiculopathy. Venous studies are normal. Pain management will be necessary. We will get a CAT scan of lumbosacral spine. We may start on antiinflammatories, muscle relaxant, and analgesic treatment. Thank you for allowing me to see this interesting patient in neurological consultation. Philipp Terrell M.D. DR: ALFRED JOB#: [id number] CC:
[2017-02-22] MEDS: Solu-MEDROL 125mg Inj IV SCH ×3 (00:46→13:12)
[2017-02-22] MEDS: Morphine Sulfate 2mg/ml Inj IVP PRN ×5 (00:46→22:18)
--- NOTE | 2017-02-22 01:15 | Consultation ---
DATE OF CONSULTATION: 02/21/2017 INFECTIOUS DISEASE CONSULTATION This consult is for coverage of Dr. Evans. PRIMARY ATTENDING PHYSICIAN: Jennifer Hull M.D. REASON FOR CONSULTATION: COPD exacerbation and pneumonia. HISTORY OF PRESENT ILLNESS: This is a 32-year-old admitted yesterday complaining of shortness of breath for two weeks. The patient has also left lower extremity pain and back pain. She states she cannot walk. PAST MEDICAL HISTORY: Significant for hydrocephalus status post CAN TENDER shunt, seizure disorder, hypertension, morbid obesity. ALLERGIES: No known drug allergies. MEDICATIONS: Getting Keppra, Zosyn, clonidine, methylprednisolone, heparin, theophylline, DuoNeb inhaler, Ketorolac, lorazepam, morphine, nitroglycerin, Phenergan, Zofran, temazepam. SOCIAL HISTORY: Lives at home. . Had history of smoking in the past. Five children. Patient's son recently had upper respiratory infection. REVIEW OF SYSTEMS: No fever. No chills. Has decreased appetite. Has constipation. Has shortness of breath but without significant cough, has no oxygen at home, and uses no inhaler at home. No problem passing urine. PHYSICAL EXAMINATION: VITAL SIGNS: Temperature 97.9 degrees, pulse 102, and blood pressure 147/87. GENERAL APPEARANCE: Seems to be an obese, awake, alert, and oriented. HEAD AND NECK: Hirsutism. [place] conjunctivae. HEART: S1 and S2, regular. LUNGS: Clear. ABDOMEN: Obese, soft. EXTREMITIES: Has no edema. LABORATORY AND DIAGNOSTIC DATA: WBC 10.2, hemoglobin 11.7, hematocrit 37.3, and platelets 182,000. Sodium 141, potassium 4, chloride 95, bicarbonate 41, BUN 40, creatinine 0.8, glucose 149. The patient had venous duplex of the left leg that was negative for DVT. Had CT scan of the chest that shows ground-glass appearance in both lungs that has differential diagnosis including infection, edema, and postinflammatory changes, had 2 mm left kidney stone. IMPRESSION: 1. Chronic obstructive pulmonary exacerbation and pneumonia. 2. The patient has pain in the back and left lower extremity, was seen seen by Neurologist. 3. History of hydrocephalus and ventriculoperitoneal shunt. 4. Hypertension. 5. Morbid obesity. RECOMMENDATION: 1. We will continue with Zosyn. 2. We will follow up with cultures. At the end of my exam, I thank Dr. Hull for involving me in the care of this patient. Juan Orellana M.D. DR: Adi JOB#: [id number] CC: WILVER
[2017-02-22] MEDS: Zoysn 3.37gm in D5W 110ml IVPB SCH ×3 (01:59→18:17)
[2017-02-22] MEDS: Theophylline ER 100mg ORAL SCH ×2 (08:24→21:06)
[2017-02-22] MEDS: Heparin 5000 units/ml inj SUBQ SCH ×2 (08:26→21:11)
--- NOTE | 2017-02-22 08:37 | Diagnostic Imaging Report ---
Indications: Low back pain Technique: Spiral acquisitions obtained through the lumbar spine. Multiplanar reconstructions were generated. No IV contrast utilized. Total dose length product 1524 mGycm. CTDIvol(s) 57 mGy. Dose reduction achieved using automated exposure control Comparison: None Findings: Slight irregularity impression of the anterior superior endplate of the L5 vertebral body centrally is noted, with some more focal nodular impressions. The latter appear to be surrounded by sclerotic bone. This probably represents a broad-based intravertebral disc herniation. There is very slight irregularity of the adjacent anterior inferior L4 endplate. No acute fractures. Bony alignment is normal. The disc spaces are preserved. The vertebral body heights are preserved. No significant disc bulge or protrusion, spinal stenosis, or neural foraminal stenosis. The included soft tissues are unremarkable. Impression: Slight depression of the anterior superior endplate of L5, probably represents a broad-based intervertebral disc herniation (so-called Schmorl's node). Less likely, this could represent a focal compression fracture deformity of the superior endplate. If the latter, age indeterminate, but more likely chronic than acute. Consider MRI for better characterization if there is high clinical suspicion for acute event. No other evidence of acute bony trauma No evidence of significant neural impingement The CT scanner at [facility] is accredited by the [employer] and the scans are performed using protocols designed to limit radiation exposure to as low as reasonably achievable to attain images of sufficient resolution adequate for diagnostic evaluation.
--- NOTE | 2017-02-22 08:47 | Diagnostic Imaging Report ---
Indications: Altered mental status Technique: Spiral acquisitions obtained through the brain. Angled axial and coronal 5 x 5 mm slices were reconstructed. Total dose length product 1358 mGycm. CTDI vol(s) 70 mGy. Dose reduction achieved using automated exposure control Comparison: None Findings: There is a right transparietal ventriculoperitoneal shunt, tip of which resides in the inferior aspect of the frontal horn of the right lateral ventricle. The ventricles are overall decompressed, although there is focal dilatation of the atrium and occipital horn of the left lateral ventricle. No acute hemorrhage or edema. No mass effect or midline shift. Normal thurston-white differentiation. Normal thurston-white differentiation. Intact calvarium other than the defect for the shunts. The visualized orbits and sinuses are unremarkable. Impression: Negative for acute intracranial bleed or mass effect Right transparietal ventriculoperitoneal shunt in place. The ventricles are for the most part decompressed. There is dilatation of the occipital horn of the left lateral ventricle. However, this appears to communicate with the normal body of the lateral ventricle dilatation represents either an extra-axial phenomenon or developmental rather than focal hydrocephalus The CT scanner at [facility] is accredited by the [employer] and the scans are performed using protocols designed to limit radiation exposure to as low as reasonably achievable to attain images of sufficient resolution adequate for diagnostic evaluation. .
--- NOTE | 2017-02-22 12:22 | Neurology Progress Note ---
Interim History Interim History ROS Limited/Unobtainable: No Complaints: low back pain Events: stable Objective Physical Exam Last Vital Signs Date Time Temp Pulse Resp B/P Pulse Ox O2 Delivery O2 Flow Rate FiO2 02/22/17 11:43 97.3 89 21 139/83 99 Nasal Cannula 3.0 02/22/17 07:55 28 General: well developed, no acute distress, other - obese, L MARKET DEVELOPER shunt Head: normocophalic, atraumatic Neck: no rigidity Neurologic Exam Mental Status: awake, alert, oriented x4, normal cognition, good mathematical skills, normal recent memory, normal remote memory, preserved visuospatial function Speech: normal speech, no dysarthia Language: normal language, no aphasia Cranial Nerve II: fundus normal, visual keane, no papilledema Cranial Nerves III, IV, : PERRLA, EOMI, pupils Cranial Nerve V: normal facial sensations, temporales function normal, masseters function normal, pterygoids function normal Cranial Nerve VII: normal facial expressions Cranial Nerve VIII: no nystagmus Cranial Nerve IX: gag response Cranial Nerve XI: trapezii function normal Cranial Nerve XII: no tongue atrophy/fasciculations Motor System: other - L side paresis Sensory: normal pinprick Coordination: other Deep Tendon Reflexes: 2+ bicep (R), 2+ knee (R), 2+ tricep (R), 3+ ankle (L), 3 + ankle (R), 3+ bicep (L), 3+ brachioradialis (L), 3+ brachioradialis (R), 3+ knee (L), 3+ tricep (L) Reflexes: mute plantar (L), mute plantar (R) Impression/Recommendations Problems: (1) single episode generalised seizure. (2) h/o seizure disorder in childhood (3) MARKET DEVELOPER (ventriculoperitoneal) shunt status (4) COPD exacerbation (5) Morbid obesity Status: stable Recommendations # [id number] EEG mild slowing, no sz [id number] bid neuro stable TELLO VAUGHAN Feb 22, 2017 12:22
--- NOTE | 2017-02-22 13:15 | Electroencephalogram ---
DATE OF PROCEDURE: 02/21/2017 ELECTROENCEPHALOGRAPHY REPORT HISTORY: The patient is a 29 years old female with a history of hydrocephalus, ventriculoperitoneal shunting, and single episode of what appeared to be seizures, currently placed on Keppra. TECHNIQUE: EEG was done using 18 electrodes placed scalp to scalp, scalp to ear montages according to 10/20 International System. Electrode placement was limited as the patient was not willing to " ." Most of recording, the patient appears to be drowsy or asleep with significant amount of theta slowing 6 to 7 cycles per second with bifrontal or generalized delta wave transients, as recording progressed, there was no asymmetry from side to side. There were no spike or wave activities. Most to brief epochs of full wakefulness consists of a mixture of 89 cycles per second with a short runs of slowing in 6 to 8 cycles per second bilaterally. There was no photic stimulation, result no significant changes. No paroxysmal or epileptiform activity noted. IMPRESSION: 1. Mildly abnormal EEG in presence of excessive diffuse slowing. 2. . COMMENT: Absence of paroxysmal event on a single recording, does not rule out seizure disorder. Noted excessive slowing may represent a toxic metabolic derangement or diffuse structural lesions. Philipp Terrell M.D. DR: INNA JOB#: [id number] CC:
[2017-02-22] MEDS: DuoNeb 0.5-3(2.5)mg/3ml neb HHN PRN ×2 (13:52→21:20)
--- NOTE | 2017-02-22 14:39 | Infectious Diseases Prog Note ---
Assessment/Plan Assessment/Plan IMPRESSION: 1. Chronic obstructive pulmonary exacerbation and possible interstitial pneumonia, with ground glass opacities on chest CT w/o nodules. not in perihilar distribution. This may be a chronic finding but no prior CT for comparison, and patient is not known to be significantly immunocompromised. Patient does endorse h/o oral steroid use for COPD, at uncertain dosage. Infectious DDx includes mycoplasma vs Pneumocysitis pneumonia. In absence of significant immunocompromise, would not include CMV, VZV, or RSV in the ddx here. 2. The patient has pain in the back and left lower extremity, was seen seen by Neurology. 3. History of hydrocephalus and ventriculoperitoneal shunt. 4. Hypertension. 5. Morbid obesity 6. Seizures 7. Hypercarbia 8. borderline leukocytosis 9. afebrile 10. no pyuria on U/A 11. HIV negative RECOMMENDATION: 1. continue with Zosyn D#2. (02/20 s/p levofloxacin x1 dose) 2. follow up with cultures. 3. induced sputum for Pneumocystis DFA 4. serum mycoplasma IgM/IgG 5. monitor CBC Subjective Constitutional: Reports: no symptoms Respiratory: Reports: dry cough, shortness of breath Gastrointestinal/Abdominal: Reports: bloating, other - eructation Skin: Reports: no symptoms Allergies: Coded Allergies: No Known Allergies (Unverified , 02/19/17) Objective Vital Signs Last 24 Hour Vital Signs Date Time Temp Pulse Resp B/P Pulse Ox O2 Delivery O2 Flow Rate FiO2 02/22/17 13:52 101 18 96 Nasal Cannula 2.0 02/22/17 11:43 97.3 89 21 139/83 99 Nasal Cannula 3.0 02/22/17 08:13 98.2 77 20 145/90 96 Nasal Cannula 2.0 02/22/17 07:55 Nasal Cannula 2.0 28 02/22/17 07:54 Nasal Cannula 2.0 02/22/17 04:28 97.8 86 20 151/72 97 Nasal Cannula 02/22/17 01:16 97.9 02/22/17 00:29 97.9 92 20 141/98 95 Nasal Cannula 02/21/17 23:20 98 18 94 Nasal Cannula 2.0 02/21/17 23:20 95 18 94 Nasal Cannula 2.0 02/21/17 21:00 97.9 97 20 104/74 95 Nasal Cannula 02/21/17 16:03 97.1 85 21 156/98 97 Room Air 02/21/17 14:55 Nasal Cannula 2.0 02/21/17 14:54 Nasal Cannula 2.0 Height (Feet): 5 Height (Inches): 6.00 Weight (Pounds): 249 Objective GENERAL APPEARANCE: Seems to be an obese, awake, alert, and oriented. HEAD AND NECK: Hirsutism. [place] conjunctivae. HEART: S1 and S2, regular. LUNGS: Clear. ABDOMEN: Obese, soft. EXTREMITIES: Has no edema. Imaging: Patient : SHERRY ODOM Referring Physician: RON JAMISON M.D. ID Number: [id number] Service Date: 02/19/17 : 1985 Report Date: 02/20/17 Gender: F Accession No.: [id number] Location: 4W Procedure: CT Chest no Contrast Clinical Indication: Shortness of breath Technique: Spiral acquisitions obtained through the chest. No IV contrast utilized, reason not stated. Multiplanar reconstructions generated. Total dose length product 03/18/43 mGycm. CTDIvol(s) 29 mGy. Dose reduction achieved using automated exposure control Comparison: None Findings:Patchy areas of groundglass opacity are seen distributed throughout both lungs but predominantly in the upper lobes. Atelectasis or scarring is seen in the left lower lobe. Some dense there are consolidative opacities are seen in the right lower lobe. No masses. No effusions. The heart size is normal. No pericardial effusion. No mediastinal or hilar mass or adenopathy. There are prominent but not frankly enlarged bilateral axillary nodes. The thyroid is diffusely enlarged, no focal abnormality. There is ventriculoperitoneal shunt tubing in the right chest wall. The bones are unremarkable. The included upper abdominal anatomy is remarkable for the presence of a 2 mm upper pole left kidney stone. Impression: Mosaic mosaic groundglass opacity in both lungs, as described. Broad differential includes infection, edema, interstitial disease, post inflammatory changes. Incidental finding 2 mm left upper pole renal stone This agrees with the preliminary interpretation provided overnight by [facility] service. Current Medications Medications (Trade) Dose Ordered Sig/Selvin Route PRN Reason Start Time Stop Time Status Last Admin Dose Admin Albuterol/ Ipratropium (DuoNeb 0.5-3(2.5)mg/3ml) 3 ml EVERY 4 HOURS PRN HHN dyspnea 02/20/17 07:00 02/25/17 06:59 02/22/17 13:52 Clonidine HCl 0.1 mg 0.1 mg Q6H PRN ORAL SBP>160 mmHg 02/20/17 21:45 03/22/17 21:44 02/20/17 22:02 Dextrose (Dextrose 50%) STAT PRN IV Hypoglycemia 02/20/17 07:00 03/22/17 06:59 Heparin Sodium (Porcine) (Heparin 5000 units/ml) 5,000 units EVERY 12 HOURS SUBQ 02/20/17 09:00 03/22/17 08:59 02/22/17 08:26 Ketorolac Tromethamine (Toradol 30mg) 30 mg EVERY 8 HOURS PRN IV moderate pain 4-6 02/20/17 07:00 02/25/17 06:59 Levetiracetam (Keppra) 500 mg Q12HR ORAL 02/21/17 15:15 03/23/17 15:14 02/22/17 08:24 Lorazepam (Ativan 2mg/ml 1ml) 0.5 mg Q4H PRN IV For Anxiety 02/20/17 07:00 02/27/17 06:59 Methylprednisolone Sodium Succinate (Solu-MEDROL) 60 mg EVERY 6 HOURS IV 02/20/17 12:00 03/22/17 11:59 02/22/17 13:12 Morphine Sulfate (Morphine Sulfate) 2 mg EVERY 4 HOURS PRN IVP severe pain 7-10 02/20/17 07:00 02/27/17 06:59 02/22/17 13:12 Nitroglycerin (Ntg) 0.4 mg Q5M X 3 DOSES PRN SL Prn Chest Pain 02/20/17 07:00 03/22/17 06:59 Ondansetron HCl (Zofran) 4 mg Q6H PRN IVP Nausea & Vomiting 02/20/17 07:00 03/22/17 06:59 Piperacillin Sod/ Tazobactam Sod/ Dextrose (Zosyn/D5W) 110 ml @ 27.5 mls/hr Q8H IVPB 02/21/17 10:00 02/25/17 17:59 02/22/17 10:51 Promethazine HCl/ Codeine (Phenergan with Codeine) 5 ml EVERY 6 HOURS PRN ORAL cough 02/20/17 07:00 03/22/17 06:59 Temazepam (Restoril) 15 mg HSPRN PRN ORAL Insomnia 02/20/17 07:00 02/27/17 06:59 Theophylline (Paresh-Dur) 100 mg EVERY 12 HOURS ORAL 02/20/17 09:00 03/22/17 08:59 02/22/17 08:24 Sebastien Sol M.D. Feb 22, 2017 14:39
--- NOTE | 2017-02-22 16:58 | Pulmonology Progress Note ---
Assessment/Plan Problems: (1) Aspiration pneumonia (2) COPD exacerbation (3) Ventriculo-peritoneal shunt status Assessment/Plan HIV negative Mycoplasma serology pending taper down steroids continue abc check sputum respiratory treatment cxr in am Subjective ROS Limited/Unobtainable: No Allergies: Coded Allergies: No Known Allergies (Unverified , 02/19/17) Objective Last 24 Hour Vital Signs Date Time Temp Pulse Resp B/P Pulse Ox O2 Delivery O2 Flow Rate FiO2 02/22/17 16:20 96.4 101 19 151/93 92 Nasal Cannula 2.0 02/22/17 14:30 95 18 94 Nasal Cannula 2.0 02/22/17 14:30 95 18 95 Nasal Cannula 2.0 02/22/17 13:52 101 18 96 Nasal Cannula 2.0 28 02/22/17 11:43 97.3 89 21 139/83 99 Nasal Cannula 3.0 02/22/17 08:13 98.2 77 20 145/90 96 Nasal Cannula 2.0 02/22/17 07:55 Nasal Cannula 2.0 28 02/22/17 07:54 Nasal Cannula 2.0 28 02/22/17 04:28 97.8 86 20 151/72 97 Nasal Cannula 02/22/17 01:16 97.9 02/22/17 00:29 97.9 92 20 141/98 95 Nasal Cannula 02/21/17 23:20 98 18 94 Nasal Cannula 2.0 02/21/17 23:20 95 18 94 Nasal Cannula 2.0 02/21/17 21:00 97.9 97 20 104/74 95 Nasal Cannula Intake and Output 02/21/17 02/22/17 19:00 07:00 Intake Total 1190.0 ml 460.0 ml Output Total 500 ml Balance 690.0 ml 460.0 ml Intake Oral 1080 ml 240 ml IV Total 110.0 ml 220.0 ml Output Urine Total 500 ml # Voids 3 5 General Appearance: WD/WN, no acute distress HEENT: normocephalic, anicteric Respiratory/Chest: lungs clear, normal breath sounds Breasts: no masses Cardiovascular: normal peripheral pulses Genitourinary: normal external genitalia Skin: no lesions 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, oriented x 3, normal mood/ affect Laboratory Tests 02/22/17 16:00: Mycoplasma pneumoniae IgG Antibody [Pending], Mycoplasma pneumoniae IgM Ab Titer [Pending] Current Medications Medications (Trade) Dose Ordered Sig/Selvin Route PRN Reason Start Time Stop Time Status Last Admin Dose Admin Albuterol/ Ipratropium (DuoNeb 0.5-3(2.5)mg/3ml) 3 ml EVERY 4 HOURS PRN HHN dyspnea 02/20/17 07:00 02/25/17 06:59 02/22/17 13:52 Clonidine HCl 0.1 mg 0.1 mg Q6H PRN ORAL SBP>160 mmHg 02/20/17 21:45 03/22/17 21:44 02/20/17 22:02 Dextrose (Dextrose 50%) STAT PRN IV Hypoglycemia 02/20/17 07:00 03/22/17 06:59 Heparin Sodium (Porcine) (Heparin 5000 units/ml) 5,000 units EVERY 12 HOURS SUBQ 02/20/17 09:00 03/22/17 08:59 02/22/17 08:26 Ketorolac Tromethamine (Toradol 30mg) 30 mg EVERY 8 HOURS PRN IV moderate pain 4-6 02/20/17 07:00 02/25/17 06:59 Levetiracetam (Keppra) 500 mg Q12HR ORAL 02/21/17 15:15 03/23/17 15:14 02/22/17 08:24 Lorazepam (Ativan 2mg/ml 1ml) 0.5 mg Q4H PRN IV For Anxiety 02/20/17 07:00 02/27/17 06:59 Methylprednisolone Sodium Succinate (Solu-MEDROL) 60 mg EVERY 6 HOURS IV 02/20/17 12:00 03/22/17 11:59 02/22/17 13:12 Morphine Sulfate (Morphine Sulfate) 2 mg EVERY 4 HOURS PRN IVP severe pain 7-10 02/20/17 07:00 02/27/17 06:59 02/22/17 13:12 Nitroglycerin (Ntg) 0.4 mg Q5M X 3 DOSES PRN SL Prn Chest Pain 02/20/17 07:00 03/22/17 06:59 Ondansetron HCl (Zofran) 4 mg Q6H PRN IVP Nausea & Vomiting 02/20/17 07:00 03/22/17 06:59 Piperacillin Sod/ Tazobactam Sod/ Dextrose (Zosyn/D5W) 110 ml @ 27.5 mls/hr Q8H IVPB 02/21/17 10:00 02/25/17 17:59 02/22/17 10:51 Promethazine HCl/ Codeine (Phenergan with Codeine) 5 ml EVERY 6 HOURS PRN ORAL cough 02/20/17 07:00 03/22/17 06:59 Temazepam (Restoril) 15 mg HSPRN PRN ORAL Insomnia 02/20/17 07:00 02/27/17 06:59 Theophylline (Paresh-Dur) 100 mg EVERY 12 HOURS ORAL 02/20/17 09:00 03/22/17 08:59 02/22/17 08:24 CRISTINA BRAMBILA Feb 22, 2017 16:58
[2017-02-23] VITALS: BP 142/89
[2017-02-23] MEDS: Zoysn 3.37gm in D5W 110ml IVPB SCH ×3 (02:19→18:37)
[2017-02-23] MEDS: Morphine Sulfate 2mg/ml Inj IVP PRN ×6 (02:20→22:40)
[2017-02-23 04:00] VITALS: BP 140/88
[2017-02-23 07:44] LABS: MEAN CORPUSCULAR HEMOGLOBIN 30.8 PG (27.0-31.0); MEAN CORPUSCULAR HGB CONC 30.5 G/DL (32.0-36.0); MEAN CORPUSCULAR VOLUME 101 FL (80-99); MEAN PLATELET VOLUME 8.6 FL (6.5-10.1); PLATELET COUNT 191 K/UL (150-450); RED BLOOD COUNT 3.76 M/UL (4.20-5.40); RED CELL DISTRIBUTION WIDTH 14.3 % (11.6-14.8); WHITE BLOOD COUNT 18.9 K/UL (4.8-10.8)
[2017-02-23 07:48] LABS: ALANINE AMINOTRANSFERASE 12 U/L (3-33); ALBUMIN/GLOBULIN RATIO 1.5 (1.0-2.7); ASPARTATE AMINO TRANSFERASE 12 U/L (5-40); CALCIUM 9.7 mg/dL (8.6-10.2); CHLORIDE 96 mEQ/L (98-107); CREATININE 0.9 mg/dL (0.5-0.9); CRP QUANT < 0.3 mg/dL (< 0.5); GLOMERULAR FILTRATION RATE > 60 mL/min (>60); HEMOLYSIS 5; MAGNESIUM 1.9 mg/dL (1.7-2.5); PHOSPHORUS 4.7 mg/dL (2.5-4.8); POTASSIUM 3.6 mEQ/L (3.4-4.9); SODIUM 146 mEQ/L (135-145); TOTAL PROTEIN 6.5 g/dL (6.6-8.7)
[2017-02-23 07:59] LABS: ANION GAP 7 (5-15)
[2017-02-23 08:00] VITALS: BP 99/66
[2017-02-23 08:02] LABS: CARBON DIOXIDE 43 mEQ/L (20-30)
--- NOTE | 2017-02-23 08:30 | Diagnostic Imaging Report ---
Indications: Shortness of breath Technique: Portable AP chest Findings: Comparison: 02/19/17 Patchy parenchymal opacities are again noted in both parahilar regions and right lower lung, along for differences in technique not significantly changed. Linear density more clearly defined in right upper lobe. No new pulmonary parenchymal abnormality demonstrated. No pleural disease evident. Cardiac mediastinal silhouette stable. IMPRESSION: Bilateral parenchymal opacities, nonspecific, may represent pulmonary edema, pneumonia, or noninfectious inflammatory process Stable right upper lobe parenchymal scarring No pneumothorax or other new abnormality
[2017-02-23] MEDS ORDERED: Solu-MEDROL 125mg Inj IV SCH (09:00)
[2017-02-23 09:13] LABS: ERYTHROCYTE SEDIMENTATION RATE 17 MM/HR (0-20)
[2017-02-23 09:31] LABS: BAND NEUTROPHILS % (MANUAL) 0 % (0-8); BASOPHILS % (MANUAL) 0 % (0-2); EOSINOPHILS % (MANUAL) 0 % (0-3); LYMPHOCYTES % (MANUAL) 15 % (20-45); NEUTROPHILS % (MANUAL) 76 % (45-75); PLATELET ESTIMATE ADEQUATE; PLATELET MORPHOLOGY NORMAL; TOTAL CELLS COUNTED 100
[2017-02-23] MEDS: Theophylline ER 100mg ORAL SCH ×2 (09:32→21:07)
[2017-02-23 09:33] LABS: ANISOCYTOSIS 1+; STOMATOCYTES 1+
[2017-02-23 09:34] LABS: HYPOCHROMASIA 1+
[2017-02-23] MEDS: Heparin 5000 units/ml inj SUBQ SCH ×2 (09:37→21:06)
[2017-02-23 12:00] VITALS: BP 146/87
--- NOTE | 2017-02-23 12:39 | Cardiology Report ---
APPROVED REPORT EKG Measurement Heart [id number] Normal sinus rhythm Rightward axis Septal infarct, age undetermined Abnormal ECG
[2017-02-23 16:00] VITALS: BP 160/95
--- NOTE | 2017-02-23 19:20 | Infectious Diseases Prog Note ---
Assessment/Plan Assessment/Plan IMPRESSION: 1. Chronic obstructive pulmonary exacerbation and possible interstitial pneumonia, with ground glass opacities on chest CT w/o nodules. not in perihilar distribution. This may be a chronic finding but no prior CT for comparison, and patient is not known to be significantly immunocompromised. Patient does endorse h/o oral steroid use for COPD, at uncertain dosage. Infectious DDx includes mycoplasma vs Pneumocysitis pneumonia. In absence of significant immunocompromise, would not include CMV, VZV, or RSV in the ddx here. 2. The patient has pain in the back and left lower extremity, was seen seen by Neurology. 3. History of hydrocephalus and ventriculoperitoneal shunt. 4. Hypertension. 5. Morbid obesity 6. Seizures 7. Hypercarbia 8. leukocytosis worse today, remains on methylprednisolone, ESR reassuring at 17mm/hr 9. afebrile 10. no pyuria on U/A 11. HIV negative RECOMMENDATION: 1. continue with Zosyn D#3. (02/20 s/p levofloxacin x1 dose) 2. follow up with cultures. 3. f/u result of induced sputum for Pneumocystis DFA 4. f/u serum mycoplasma IgM/IgG 5. monitor CBC Subjective ROS Limited/Unobtainable: Yes Allergies: Coded Allergies: No Known Allergies (Unverified , 02/19/17) Objective Vital Signs Last 24 Hour Vital Signs Date Time Temp Pulse Resp B/P Pulse Ox O2 Delivery O2 Flow Rate FiO2 02/23/17 16:00 98.2 101 19 160/95 94 Nasal Cannula 2.0 02/23/17 15:08 97.7 02/23/17 12:00 97.7 84 20 146/87 95 Nasal Cannula 02/23/17 08:00 97.9 87 20 99/66 100 Nasal Cannula 02/23/17 07:04 18 Nasal Cannula 2.0 02/23/17 04:00 98.1 96 18 140/88 94 Nasal Cannula 2.0 02/23/17 00:00 97.8 99 20 142/89 94 Nasal Cannula 2.0 02/22/17 22:30 151/90 02/22/17 21:26 104 18 97 Nasal Cannula 2.0 02/22/17 21:26 104 18 97 Nasal Cannula 2.0 02/22/17 21:06 164/87 02/22/17 20:00 97.5 107 21 164/87 93 Nasal Cannula 2.0 Height (Feet): 5 Height (Inches): 6.00 Weight (Pounds): 249 Objective GENERAL APPEARANCE: obese, awake, alert, and oriented. in pain HEAD AND NECK: Hirsutism. [place] conjunctivae. HEART: S1 and S2, regular. LUNGS: Clear. ABDOMEN: Obese, soft. no peritoneal signs. EXTREMITIES: Has no edema. Microbiology Date/Time Source Procedure Growth Status 02/22/17 15:07 Sputum Gram Stain - Final Resulted 02/22/17 15:07 Sputum Sputum Culture - Preliminary NORMAL UPPER RESPIRATORY KARINE PRESENT Resulted Laboratory Tests Test 02/23/17 04:30 White Blood Count 18.9 K/UL (4.8-10.8) H Red Blood Count 3.76 M/UL (4.20-5.40) L Hemoglobin 11.6 G/DL (12.0-16.0) L Hematocrit 38.0 % (37.0-47.0) Mean Corpuscular Volume 101 FL (80-99) H Mean Corpuscular Hemoglobin 30.8 PG (27.0-31.0) Mean Corpuscular Hemoglobin Concent 30.5 G/DL (32.0-36.0) L Red Cell Distribution Width 14.3 % (11.6-14.8) Platelet Count 191 K/UL (150-450) Mean Platelet Volume 8.6 FL (6.5-10.1) Neutrophils (%) (Auto) % (45.0-75.0) Lymphocytes (%) (Auto) % (20.0-45.0) Monocytes (%) (Auto) % (1.0-10.0) Eosinophils (%) (Auto) % (0.0-3.0) Basophils (%) (Auto) % (0.0-2.0) Differential Total Cells Counted 100 Neutrophils % (Manual) 76 % (45-75) H Lymphocytes % (Manual) 15 % (20-45) L Monocytes % (Manual) 9 % (1-10) Eosinophils % (Manual) 0 % (0-3) Basophils % (Manual) 0 % (0-2) Band Neutrophils 0 % (0-8) Platelet Estimate Adequate Platelet Morphology Normal Hypochromasia 1+ Anisocytosis 1+ Microcytosis Stomatocytes 1+ Erythrocyte Sedimentation Rate 17 MM/HR (0-20) Sodium Level 146 mEQ/L (135-145) H Potassium Level 3.6 mEQ/L (3.4-4.9) Chloride Level 96 mEQ/L (98-107) L Carbon Dioxide Level 43 mEQ/L (20-30) *H Anion Gap 7 (5-15) Blood Urea Nitrogen 19 mg/dL (7-23) Creatinine 0.9 mg/dL (0.5-0.9) Estimat Glomerular Filtration Rate > 60 mL/min (>60) Glucose Level 121 mg/dL (74-106) H Calcium Level 9.7 mg/dL (8.6-10.2) Phosphorus Level 4.7 mg/dL (2.5-4.8) Magnesium Level 1.9 mg/dL (1.7-2.5) Total Bilirubin 0.2 mg/dL (0.0-1.2) Aspartate Amino Transf (AST/SGOT) 12 U/L (5-40) Alanine Aminotransferase (ALT/SGPT) 12 U/L (3-33) Alkaline Phosphatase 62 U/L (35-104) C-Reactive Protein, Quantitative < 0.3 mg/dL (< 0.5) Total Protein 6.5 g/dL (6.6-8.7) L Albumin 3.9 g/dL (3.5-5.2) Globulin 2.6 g/dL Albumin/Globulin Ratio 1.5 (1.0-2.7) Current Medications Medications (Trade) Dose Ordered Sig/Selvin Route PRN Reason Start Time Stop Time Status Last Admin Dose Admin Albuterol/ Ipratropium (DuoNeb 0.5-3(2.5)mg/3ml) 3 ml EVERY 4 HOURS PRN HHN dyspnea 02/20/17 07:00 02/25/17 06:59 02/22/17 21:20 Clonidine HCl 0.1 mg 0.1 mg Q6H PRN ORAL SBP>160 mmHg 02/20/17 21:45 03/22/17 21:44 02/22/17 21:06 Dextrose (Dextrose 50%) STAT PRN IV Hypoglycemia 02/20/17 07:00 03/22/17 06:59 Heparin Sodium (Porcine) (Heparin 5000 units/ml) 5,000 units EVERY 12 HOURS SUBQ 02/20/17 09:00 03/22/17 08:59 02/23/17 09:37 Ketorolac Tromethamine (Toradol 30mg) 30 mg EVERY 8 HOURS PRN IV moderate pain 4-6 02/20/17 07:00 02/25/17 06:59 Levetiracetam (Keppra) 500 mg Q12HR ORAL 02/21/17 15:15 03/23/17 15:14 02/23/17 09:32 Lorazepam (Ativan 2mg/ml 1ml) 0.5 mg Q4H PRN IV For Anxiety 02/20/17 07:00 02/27/17 06:59 Methylprednisolone Sodium Succinate (Solu-MEDROL) 60 mg DAILY IV 02/23/17 09:00 03/25/17 08:59 02/23/17 09:40 Morphine Sulfate (Morphine Sulfate) 2 mg EVERY 4 HOURS PRN IVP severe pain 7-10 02/20/17 07:00 02/27/17 06:59 02/23/17 18:37 Nitroglycerin (Ntg) 0.4 mg Q5M X 3 DOSES PRN SL Prn Chest Pain 02/20/17 07:00 03/22/17 06:59 Ondansetron HCl (Zofran) 4 mg Q6H PRN IVP Nausea & Vomiting 02/20/17 07:00 03/22/17 06:59 Piperacillin Sod/ Tazobactam Sod/ Dextrose (Zosyn/D5W) 110 ml @ 27.5 mls/hr Q8H IVPB 02/21/17 10:00 02/25/17 17:59 02/23/17 18:37 Promethazine HCl/ Codeine (Phenergan with Codeine) 5 ml EVERY 6 HOURS PRN ORAL cough 02/20/17 07:00 03/22/17 06:59 Temazepam (Restoril) 15 mg HSPRN PRN ORAL Insomnia 02/20/17 07:00 02/27/17 06:59 Theophylline (Paresh-Dur) 100 mg EVERY 12 HOURS ORAL 02/20/17 09:00 03/22/17 08:59 02/23/17 09:32 Sebastien Sol M.D. Feb 23, 2017 19:20
[2017-02-23] MEDS: DuoNeb 0.5-3(2.5)mg/3ml neb HHN PRN (19:30)
[2017-02-23 20:56] VITALS: BP 153/87
--- NOTE | 2017-02-23 22:49 | Pulmonology Progress Note ---
Assessment/Plan Problems: (1) Aspiration pneumonia (2) COPD exacerbation (3) Ventriculo-peritoneal shunt status Assessment/Plan HIV negative Mycoplasma serology pending dc steroids continue abc on Zosyn check sputum respiratory treatment cxr showed bilateral infiltrae Subjective ROS Limited/Unobtainable: No Constitutional: Reports: no symptoms HEENT: Repors: no symptoms Respiratory: Reports: no symptoms Allergies: Coded Allergies: No Known Allergies (Unverified , 02/19/17) Objective Last 24 Hour Vital Signs Date Time Temp Pulse Resp B/P Pulse Ox O2 Delivery O2 Flow Rate FiO2 02/23/17 20:56 97.7 101 20 153/87 98 Nasal Cannula 02/23/17 19:37 Nasal Cannula 2.0 28 02/23/17 19:33 28 02/23/17 19:31 105 20 99 Nasal Cannula 2.0 28 02/23/17 19:30 105 20 Nasal Cannula 2.0 28 02/23/17 19:07 98.2 02/23/17 16:00 98.2 101 19 160/95 94 Nasal Cannula 2.0 02/23/17 12:00 97.7 84 20 146/87 95 Nasal Cannula 02/23/17 08:00 97.9 87 20 99/66 100 Nasal Cannula 02/23/17 07:04 18 Nasal Cannula 2.0 02/23/17 04:00 98.1 96 18 140/88 94 Nasal Cannula 2.0 02/23/17 00:00 97.8 99 20 142/89 94 Nasal Cannula 2.0 Intake and Output 02/22/17 02/23/17 19:00 07:00 Intake Total 440 ml 970.0 ml Balance 440 ml 970.0 ml Intake Oral 440 ml 750 ml IV Total 220.0 ml # Voids 1 4 # Bowel Movements 1 General Appearance: WD/WN HEENT: normocephalic, atraumatic Respiratory/Chest: chest wall non-tender, lungs clear Breasts: no masses Cardiovascular: normal peripheral pulses, normal rate Abdomen: normal bowel sounds, soft, non tender Genitourinary: normal external genitalia Extremities: no cyanosis Microbiology Date/Time Source Procedure Growth Status 02/22/17 15:07 Sputum Gram Stain - Final Resulted 02/22/17 15:07 Sputum Sputum Culture - Preliminary NORMAL UPPER RESPIRATORY KARINE PRESENT Resulted Laboratory Tests 02/23/17 04:30: White Blood Count 18.9H, Red Blood Count 3.76L, Hemoglobin 11.6L, Hematocrit 38.0, Mean Corpuscular Volume 101H, Mean Corpuscular Hemoglobin 30.8, Mean Corpuscular Hemoglobin Concent 30.5L, Red Cell Distribution Width 14.3, Platelet Count 191, Mean Platelet Volume 8.6, Neutrophils (%) (Auto) , Lymphocytes (%) (Auto) , Monocytes (%) (Auto) , Eosinophils (%) (Auto) , Basophils (%) (Auto) , Differential Total Cells Counted 100, Neutrophils % ( Manual) 76H, Lymphocytes % (Manual) 15L, Monocytes % (Manual) 9, Eosinophils % ( Manual) 0, Basophils % (Manual) 0, Band Neutrophils 0, Platelet Estimate Adequate, Platelet Morphology Normal, Hypochromasia 1+, Anisocytosis 1+, Microcytosis , Stomatocytes 1+, Erythrocyte Sedimentation Rate 17, Sodium Level 146H, Potassium Level 3.6, Chloride Level 96L, Carbon Dioxide Level 43*H, Anion Gap 7, Blood Urea Nitrogen 19, Creatinine 0.9, Estimat Glomerular Filtration Rate > 60, Glucose Level 121H, Calcium Level 9.7, Phosphorus Level 4.7, Magnesium Level 1.9, Total Bilirubin 0.2, Aspartate Amino Transf (AST/SGOT) 12, Alanine Aminotransferase (ALT/SGPT) 12, Alkaline Phosphatase 62, C-Reactive Protein, Quantitative < 0.3, Total Protein 6.5L, Albumin 3.9, Globulin 2.6, Albumin/Globulin Ratio 1.5 Current Medications Medications (Trade) Dose Ordered Sig/Selvin Route PRN Reason Start Time Stop Time Status Last Admin Dose Admin Albuterol/ Ipratropium (DuoNeb 0.5-3(2.5)mg/3ml) 3 ml EVERY 4 HOURS PRN HHN dyspnea 02/20/17 07:00 02/25/17 06:59 02/23/17 19:30 Clonidine HCl 0.1 mg 0.1 mg Q6H PRN ORAL SBP>160 mmHg 02/20/17 21:45 03/22/17 21:44 02/22/17 21:06 Dextrose (Dextrose 50%) STAT PRN IV Hypoglycemia 02/20/17 07:00 03/22/17 06:59 Heparin Sodium (Porcine) (Heparin 5000 units/ml) 5,000 units EVERY 12 HOURS SUBQ 02/20/17 09:00 03/22/17 08:59 02/23/17 21:06 Ketorolac Tromethamine (Toradol 30mg) 30 mg EVERY 8 HOURS PRN IV moderate pain 4-6 02/20/17 07:00 02/25/17 06:59 Levetiracetam (Keppra) 500 mg Q12HR ORAL 02/21/17 15:15 03/23/17 15:14 02/23/17 21:07 Lorazepam (Ativan 2mg/ml 1ml) 0.5 mg Q4H PRN IV For Anxiety 02/20/17 07:00 02/27/17 06:59 Morphine Sulfate (Morphine Sulfate) 2 mg EVERY 4 HOURS PRN IVP severe pain 7-10 02/20/17 07:00 02/27/17 06:59 02/23/17 22:40 Nitroglycerin (Ntg) 0.4 mg Q5M X 3 DOSES PRN SL Prn Chest Pain 02/20/17 07:00 03/22/17 06:59 Ondansetron HCl (Zofran) 4 mg Q6H PRN IVP Nausea & Vomiting 02/20/17 07:00 03/22/17 06:59 Piperacillin Sod/ Tazobactam Sod/ Dextrose (Zosyn/D5W) 110 ml @ 27.5 mls/hr Q8H IVPB 02/21/17 10:00 02/25/17 17:59 02/23/17 18:37 Promethazine HCl/ Codeine (Phenergan with Codeine) 5 ml EVERY 6 HOURS PRN ORAL cough 02/20/17 07:00 03/22/17 06:59 Temazepam (Restoril) 15 mg HSPRN PRN ORAL Insomnia 02/20/17 07:00 02/27/17 06:59 Theophylline (Paresh-Dur) 100 mg EVERY 12 HOURS ORAL 02/20/17 09:00 03/22/17 08:59 02/23/17 21:07 CRISTINA BRAMBILA Feb 23, 2017 22:49
[2017-02-24 00:15] VITALS: BP 155/74
[2017-02-24] MEDS: Zoysn 3.37gm in D5W 110ml IVPB SCH ×2 (01:31→10:54)
[2017-02-24 04:00] VITALS: BP 153/74
[2017-02-24] MEDS: Morphine Sulfate 2mg/ml Inj IVP PRN ×5 (04:09→22:30)
--- NOTE | 2017-02-24 07:29 | Pulmonology Progress Note ---
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 morbid obesity PLAN OF CARE MS floor sputum cx negative abx ID follows CT chest with mosaic ground glass opacities in both lungs O2 to keep sat above 92% HHN as needed Theophylline steroid small dose with tapering to oral a/tussive prn Mycoplasma IgG and IgM neuro follows EEG with mild slowing, but no seizures started on Keppra per neuro, neuro status stable seizure precautions HIV status negative ] CT head no acute IC pathology urine tox screen + opiates DVT prophylaxis case discussed and evaluated by supervising physician Subjective Allergies: Coded Allergies: No Known Allergies (Unverified , 02/19/17) Subjective afebrile, leukocytosis today reports chest tightness Objective Last 24 Hour Vital Signs Date Time Temp Pulse Resp B/P Pulse Ox O2 Delivery O2 Flow Rate FiO2 02/24/17 04:39 98.2 02/24/17 04:00 97.6 88 20 153/74 98 Nasal Cannula 02/24/17 00:15 98.2 102 20 155/74 98 Nasal Cannula 02/23/17 20:56 97.7 101 20 153/87 98 Nasal Cannula 02/23/17 19:37 Nasal Cannula 2.0 28 02/23/17 19:33 28 02/23/17 19:31 105 20 99 Nasal Cannula 2.0 28 02/23/17 19:30 105 20 Nasal Cannula 2.0 28 02/23/17 16:00 98.2 101 19 160/95 94 Nasal Cannula 2.0 02/23/17 12:00 97.7 84 20 146/87 95 Nasal Cannula 02/23/17 08:00 97.9 87 20 99/66 100 Nasal Cannula Intake and Output 02/23/17 02/24/17 19:00 07:00 Intake Total 1700 ml Balance 1700 ml Intake Oral 1700 ml # Voids 7 4 General Appearance: no acute distress, other - middle age morbidly obese AA female A/A/O x 4 HEENT: normocephalic, atraumatic, anicteric Respiratory/Chest: no respiratory distress, no accessory muscle use, decreased breath sounds, other - O2 via NC Cardiovascular: normal peripheral pulses, normal rate, regular rhythm Abdomen: normal bowel sounds, soft, non tender - obese Neurologic/Psychiatric: no motor/sensory deficits, alert, oriented x 3, responsive Musculoskeletal: normal muscle bulk Microbiology Date/Time Source Procedure Growth Status 02/22/17 15:07 Sputum Gram Stain - Final Resulted 02/22/17 15:07 Sputum Sputum Culture - Preliminary NORMAL UPPER RESPIRATORY KARINE PRESENT Resulted Current Medications Medications (Trade) Dose Ordered Sig/Selvin Route PRN Reason Start Time Stop Time Status Last Admin Dose Admin Albuterol/ Ipratropium (DuoNeb 0.5-3(2.5)mg/3ml) 3 ml EVERY 4 HOURS PRN HHN dyspnea 02/20/17 07:00 02/25/17 06:59 02/23/17 19:30 Clonidine HCl 0.1 mg 0.1 mg Q6H PRN ORAL SBP>160 mmHg 02/20/17 21:45 03/22/17 21:44 02/22/17 21:06 Dextrose (Dextrose 50%) STAT PRN IV Hypoglycemia 02/20/17 07:00 03/22/17 06:59 Heparin Sodium (Porcine) (Heparin 5000 units/ml) 5,000 units EVERY 12 HOURS SUBQ 02/20/17 09:00 03/22/17 08:59 02/23/17 21:06 Ketorolac Tromethamine (Toradol 30mg) 30 mg EVERY 8 HOURS PRN IV moderate pain 4-6 02/20/17 07:00 02/25/17 06:59 Levetiracetam (Keppra) 500 mg Q12HR ORAL 02/21/17 15:15 03/23/17 15:14 02/23/17 21:07 Lorazepam (Ativan 2mg/ml 1ml) 0.5 mg Q4H PRN IV For Anxiety 02/20/17 07:00 02/27/17 06:59 Morphine Sulfate (Morphine Sulfate) 2 mg EVERY 4 HOURS PRN IVP severe pain 7-10 02/20/17 07:00 02/27/17 06:59 02/24/17 04:09 Nitroglycerin (Ntg) 0.4 mg Q5M X 3 DOSES PRN SL Prn Chest Pain 02/20/17 07:00 03/22/17 06:59 Ondansetron HCl (Zofran) 4 mg Q6H PRN IVP Nausea & Vomiting 02/20/17 07:00 03/22/17 06:59 Piperacillin Sod/ Tazobactam Sod/ Dextrose (Zosyn/D5W) 110 ml @ 27.5 mls/hr Q8H IVPB 02/21/17 10:00 02/25/17 17:59 02/24/17 01:31 Promethazine HCl/ Codeine (Phenergan with Codeine) 5 ml EVERY 6 HOURS PRN ORAL cough 02/20/17 07:00 03/22/17 06:59 Temazepam (Restoril) 15 mg HSPRN PRN ORAL Insomnia 02/20/17 07:00 02/27/17 06:59 Theophylline (Paresh-Dur) 100 mg EVERY 12 HOURS ORAL 02/20/17 09:00 03/22/17 08:59 02/23/17 21:07 [facility] NP Feb 24, 2017 07:29
[2017-02-24 08:00] VITALS: BP 162/96
[2017-02-24] MEDS: Theophylline ER 100mg ORAL SCH ×2 (08:16→20:44)
[2017-02-24] MEDS: Heparin 5000 units/ml inj SUBQ SCH ×2 (08:28→20:46)
[2017-02-24 11:58] VITALS: BP 156/95
[2017-02-24] MEDS ORDERED: DuoNeb 0.5-3(2.5)mg/3ml neb HHN PRN (14:00)
[2017-02-24] MEDS: Solu-MEDROL 125mg Inj IV SCH (14:27)
[2017-02-24] MEDS ORDERED: Tubing IV Secondary IV ONE (14:48)
[2017-02-24] MEDS ORDERED: NS 275ml ONE (14:48)
--- NOTE | 2017-02-24 14:50 | Infectious Diseases Prog Note ---
Assessment/Plan Assessment/Plan IMPRESSION: 1. Chronic obstructive pulmonary exacerbation and possible interstitial pneumonia, with ground glass opacities on chest CT w/o nodules. not in perihilar distribution. This may be a chronic finding but no prior CT for comparison, and patient is not known to be significantly immunocompromised. Patient does endorse h/o oral steroid use for COPD, at uncertain dosage. Infectious DDx includes mycoplasma vs Pneumocysitis pneumonia but an induced sputum is now confirmed PCP DFA negative and mycoplasma serology pending. 2. The patient has pain in the back and left lower extremity, was seen seen by Neurology. 3. History of hydrocephalus and ventriculoperitoneal shunt. 4. Hypertension. 5. Morbid obesity 6. Seizures 7. Hypercarbia 8. leukocytosis worse yesterday s/p pulse dose steroids, ESR reassuring at 17mm /hr 9. afebrile 10. no pyuria on U/A 11. HIV negative 12. Induced sputum Pneumocystis DFA negative. RECOMMENDATION: 1. continue with Zosyn D#4, plan to switch to levofloxacin 750mg PO q24hr tommorrow to complete 10 day total course. (02/20 s/p levofloxacin x1 dose) 2. f/u serum mycoplasma IgM/IgG 3. monitor CBC, repeat in AM 4. monitor temp curve. Subjective Allergies: Coded Allergies: No Known Allergies (Unverified , 02/19/17) Subjective remains afebrile. patient has a keenan-positive review of symptoms, c/o excruciating pain, however prior to entering the room, i observed her speaking on the phone with her family for several minutes and she was comfortable and laughing, but once I entered the room she began moaning in pain. Objective Vital Signs Last 24 Hour Vital Signs Date Time Temp Pulse Resp B/P Pulse Ox O2 Delivery O2 Flow Rate FiO2 02/24/17 11:58 97.3 105 20 156/95 95 Nasal Cannula 3.0 02/24/17 08:48 Nasal Cannula 2.0 28 02/24/17 08:47 87 2 Nasal Cannula 3.0 28 02/24/17 08:00 97.5 97 20 162/96 95 Nasal Cannula 3.0 02/24/17 04:39 98.2 02/24/17 04:00 97.6 88 20 153/74 98 Nasal Cannula 02/24/17 00:15 98.2 102 20 155/74 98 Nasal Cannula 02/23/17 20:56 97.7 101 20 153/87 98 Nasal Cannula 02/23/17 19:37 Nasal Cannula 2.0 28 02/23/17 19:33 28 02/23/17 19:31 105 20 99 Nasal Cannula 2.0 28 02/23/17 19:30 105 20 Nasal Cannula 2.0 28 02/23/17 16:00 98.2 101 19 160/95 94 Nasal Cannula 2.0 Height (Feet): 5 Height (Inches): 6.00 Weight (Pounds): 249 Objective GENERAL APPEARANCE: obese, awake, alert, and oriented. HEAD AND NECK: Hirsutism. [place] conjunctivae. chronic disconjugate gaze. HEART: S1 and S2, regular. LUNGS: no crackles. on supplemental NC. ABDOMEN: Obese, soft. no peritoneal signs. EXTREMITIES: Has no edema. Microbiology Date/Time Source Procedure Growth Status 02/22/17 15:07 Sputum Gram Stain - Final Complete 02/22/17 15:07 Sputum Sputum Culture - Final NORMAL UPPER RESPIRATORY KARINE PRESENT Complete 02/22/17 15:07 Sputum Induced Pneumocystis jiroveci Smear (DFA) - Final Complete Current Medications Medications (Trade) Dose Ordered Sig/Selvin Route PRN Reason Start Time Stop Time Status Last Admin Dose Admin Albuterol/ Ipratropium (DuoNeb 0.5-3(2.5)mg/3ml) 3 ml Q4H PRN HHN dyspnea 02/24/17 14:00 03/01/17 13:59 Clonidine HCl 0.1 mg 0.1 mg Q6H PRN ORAL SBP>160 mmHg 02/20/17 21:45 03/22/17 21:44 02/22/17 21:06 Dextrose (Dextrose 50%) STAT PRN IV Hypoglycemia 02/20/17 07:00 03/22/17 06:59 Heparin Sodium (Porcine) (Heparin 5000 units/ml) 5,000 units EVERY 12 HOURS SUBQ 02/20/17 09:00 03/22/17 08:59 02/23/17 21:06 Ketorolac Tromethamine (Toradol 30mg) 30 mg EVERY 8 HOURS PRN IV moderate pain 4-6 02/20/17 07:00 02/25/17 06:59 Levetiracetam (Keppra) 500 mg Q12HR ORAL 02/21/17 15:15 03/23/17 15:14 02/24/17 08:16 Lorazepam (Ativan 2mg/ml 1ml) 0.5 mg Q4H PRN IV For Anxiety 02/20/17 07:00 02/27/17 06:59 Methylprednisolone Sodium Succinate (Solu-MEDROL) 60 mg DAILY IV 02/24/17 15:00 03/26/17 14:59 02/24/17 14:27 Morphine Sulfate (Morphine Sulfate) 2 mg EVERY 4 HOURS PRN IVP severe pain 7-10 02/20/17 07:00 02/27/17 06:59 02/24/17 12:27 Nitroglycerin (Ntg) 0.4 mg Q5M X 3 DOSES PRN SL Prn Chest Pain 02/20/17 07:00 03/22/17 06:59 Ondansetron HCl (Zofran) 4 mg Q6H PRN IVP Nausea & Vomiting 02/20/17 07:00 03/22/17 06:59 02/24/17 13:50 Piperacillin Sod/ Tazobactam Sod/ Dextrose (Zosyn/D5W) 110 ml @ 27.5 mls/hr Q8H IVPB 02/21/17 10:00 02/25/17 17:59 02/24/17 10:54 Promethazine HCl/ Codeine (Phenergan with Codeine) 5 ml EVERY 6 HOURS PRN ORAL cough 02/20/17 07:00 03/22/17 06:59 Temazepam (Restoril) 15 mg HSPRN PRN ORAL Insomnia 02/20/17 07:00 02/27/17 06:59 Theophylline (Paresh-Dur) 100 mg EVERY 12 HOURS ORAL 02/20/17 09:00 03/22/17 08:59 02/24/17 08:16 Sebastien Sol M.D. Feb 24, 2017 14:50
[2017-02-24 16:00] VITALS: BP 158/81
[2017-02-24] MEDS ORDERED: Piperacillin/Tazobactam 3.375 GM in D5W 110 ML IVPB SCH (18:00)
[2017-02-24 20:00] VITALS: BP 153/97
[2017-02-24 21:13] LABS: MYCOPLASMA PNEUMONIAE AB IGG 319 U/mL (0-99); MYCOPLASMA PNEUMONIAE AB IGM <770 U/mL (0-769)
[2017-02-25] VITALS (8 sets, daily range): BP systolic 139–162; BP diastolic 81–107
[2017-02-25 07:52] LABS: BASOPHILS % (AUTO) 0.9 % (0.0-2.0); LYMPHOCYTES % (AUTO) 10.5 % (20.0-45.0); MEAN CORPUSCULAR HEMOGLOBIN 31.5 PG (27.0-31.0); MEAN CORPUSCULAR HGB CONC 30.9 G/DL (32.0-36.0); MEAN CORPUSCULAR VOLUME 102 FL (80-99); MEAN PLATELET VOLUME 8.5 FL (6.5-10.1); MONOCYTES % (AUTO) 4.1 % (1.0-10.0); NEUTROPHILS % (AUTO) 84.4 % (45.0-75.0); PLATELET COUNT 191 K/UL (150-450); RED BLOOD COUNT 4.05 M/UL (4.20-5.40); RED CELL DISTRIBUTION WIDTH 14.1 % (11.6-14.8); WHITE BLOOD COUNT 14.9 K/UL (4.8-10.8)
[2017-02-25 08:36] LABS: CALCIUM 10.1 mg/dL (8.6-10.2); CHLORIDE 91 mEQ/L (98-107); CREATININE 0.8 mg/dL (0.5-0.9); GLOMERULAR FILTRATION RATE > 60 mL/min (>60); HEMOLYSIS 23; POTASSIUM 4.6 mEQ/L (3.4-4.9); SODIUM 145 mEQ/L (135-145)
[2017-02-25] MEDS: Morphine Sulfate 2mg/ml Inj IVP PRN ×4 (08:40→21:19)
[2017-02-25] MEDS: Solu-MEDROL 125mg Inj IV SCH (08:40)
[2017-02-25] MEDS: Theophylline ER 100mg ORAL SCH ×2 (08:40→21:18)
[2017-02-25] MEDS: Heparin 5000 units/ml inj SUBQ SCH ×2 (08:41→21:29)
[2017-02-25 09:02] LABS: ANION GAP 6 (5-15); CARBON DIOXIDE 48 mEQ/L (20-30)
[2017-02-25] MEDS ORDERED: Tubing IV Secondary IV ONE (09:23)
[2017-02-25] MEDS ORDERED: 1/2 NS 1000ml IV ONE (09:23)
--- NOTE | 2017-02-25 11:03 | Pulmonology Progress Note ---
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 CO2 increasing start Diamox x 2 days neuro follows EEG with mild slowing, but no seizures started on Keppra per neuro, neuro status stable seizure precautions HIV status negative ] CT head no acute IC pathology urine tox screen + opiates DVT prophylaxis dc plan for tomorrow case discussed and evaluated by supervising physician Subjective Allergies: Coded Allergies: No Known Allergies (Unverified , 02/19/17) Subjective afebrile, leukocytosis today reports chest tightness Objective Last 24 Hour Vital Signs Date Time Temp Pulse Resp B/P Pulse Ox O2 Delivery O2 Flow Rate FiO2 02/25/17 08:27 98.4 114 20 151/107 96 Room Air 02/25/17 07:59 94 18 Nasal Cannula 3.0 28 02/25/17 07:57 95 Nasal Cannula 3.0 32 02/25/17 07:55 Nasal Cannula 3.0 28 02/25/17 04:00 98.2 82 20 143/89 96 Room Air 02/25/17 00:00 97.8 89 18 145/89 91 Room Air 02/24/17 23:00 98.4 02/24/17 20:00 98.4 96 20 153/97 92 02/24/17 19:51 96 Nasal Cannula 3.0 32 02/24/17 19:50 95 20 Nasal Cannula 3.0 32 02/24/17 19:50 Nasal Cannula 3.0 32 02/24/17 16:00 97.7 111 24 158/81 100 Nasal Cannula 4.0 02/24/17 11:58 97.3 105 20 156/95 95 Nasal Cannula 3.0 Intake and Output 02/24/17 02/25/17 19:00 07:00 Intake Total 110.0 ml 350 ml Output Total 950 ml Balance 110.0 ml -600 ml Intake Oral 350 ml IV Total 110.0 ml Output Urine Total 950 ml # Voids 4 # Bowel Movements 1 Objective General Appearance: no acute distress, middle age morbidly obese AA female A/ A/O x 4 HEENT: normocephalic, atraumatic, anicteric Respiratory/Chest: no respiratory distress, no accessory muscle use, decreased breath sounds, O2 via NC Cardiovascular: normal peripheral pulses, normal rate, regular rhythm Abdomen: normal bowel sounds, soft, non tender - obese Neurologic/Psychiatric: no motor/sensory deficits, alert, oriented x 3, responsive Musculoskeletal: normal muscle bulk Microbiology Date/Time Source Procedure Growth Status 02/22/17 15:07 Sputum Gram Stain - Final Complete 02/22/17 15:07 Sputum Sputum Culture - Final NORMAL UPPER RESPIRATORY KARINE PRESENT Complete 02/22/17 15:07 Sputum Induced Pneumocystis jiroveci Smear (DFA) - Final Complete Laboratory Tests 02/25/17 05:30: White Blood Count 14.9H, Red Blood Count 4.05L, Hemoglobin 12.8, Hematocrit 41.3 , Mean Corpuscular Volume 102H, Mean Corpuscular Hemoglobin 31.5H, Mean Corpuscular Hemoglobin Concent 30.9L, Red Cell Distribution Width 14.1, Platelet Count 191, Mean Platelet Volume 8.5, Neutrophils (%) (Auto) 84.4H, Lymphocytes (%) (Auto) 10.5L, Monocytes (%) (Auto) 4.1, Eosinophils (%) (Auto) 0.0, Basophils (%) (Auto) 0.9, Sodium Level 145, Potassium Level 4.6, Chloride Level 91L, Carbon Dioxide Level 48*H, Anion Gap 6, Blood Urea Nitrogen 15, Creatinine 0.8, Estimat Glomerular Filtration Rate > 60, Glucose Level 75, Calcium Level 10.1 Current Medications Medications (Trade) Dose Ordered Sig/Selvin Route PRN Reason Start Time Stop Time Status Last Admin Dose Admin Albuterol/ Ipratropium (DuoNeb 0.5-3(2.5)mg/3ml) 3 ml Q4H PRN HHN dyspnea 02/24/17 14:00 03/01/17 13:59 Clonidine HCl (Catapres) 0.1 mg Q6H PRN ORAL SBP>160 mmHg 02/20/17 21:45 03/22/17 21:44 02/22/17 21:06 Dextrose (Dextrose 50%) STAT PRN IV Hypoglycemia 02/20/17 07:00 03/22/17 06:59 Heparin Sodium (Porcine) (Heparin 5000 units/ml) 5,000 units EVERY 12 HOURS SUBQ 02/20/17 09:00 03/22/17 08:59 02/25/17 08:41 Levetiracetam (Keppra) 500 mg Q12HR ORAL 02/21/17 15:15 03/23/17 15:14 02/25/17 08:40 Levofloxacin (Levaquin) 750 mg DAILY ORAL 02/25/17 09:00 03/01/17 08:59 02/25/17 08:40 Lorazepam (Ativan 2mg/ml 1ml) 0.5 mg Q4H PRN IV For Anxiety 02/20/17 07:00 02/27/17 06:59 Methylprednisolone Sodium Succinate (Solu-MEDROL) 60 mg DAILY IV 02/24/17 15:00 03/26/17 14:59 02/25/17 08:40 Morphine Sulfate (Morphine Sulfate) 2 mg EVERY 4 HOURS PRN IVP severe pain 7-10 02/20/17 07:00 02/27/17 06:59 02/25/17 08:40 Nitroglycerin (Ntg) 0.4 mg Q5M X 3 DOSES PRN SL Prn Chest Pain 02/20/17 07:00 03/22/17 06:59 Ondansetron HCl (Zofran) 4 mg Q6H PRN IVP Nausea & Vomiting 02/20/17 07:00 03/22/17 06:59 02/24/17 13:50 Promethazine HCl/ Codeine (Phenergan with Codeine) 5 ml EVERY 6 HOURS PRN ORAL cough 02/20/17 07:00 03/22/17 06:59 Temazepam (Restoril) 15 mg HSPRN PRN ORAL Insomnia 02/20/17 07:00 02/27/17 06:59 Theophylline (Paresh-Dur) 100 mg EVERY 12 HOURS ORAL 02/20/17 09:00 03/22/17 08:59 02/25/17 08:40 [facility] Feb 25, 2017 11:03
--- NOTE | 2017-02-25 14:51 | Infectious Diseases Prog Note ---
Assessment/Plan Assessment/Plan IMPRESSION: 1. Chronic obstructive pulmonary exacerbation and possible interstitial pneumonia, with ground glass opacities on chest CT w/o nodules. not in perihilar distribution. This may be a chronic finding but no prior CT for comparison, and patient is not known to be significantly immunocompromised. Patient does endorse h/o oral steroid use for COPD, at uncertain dosage. Infectious DDx includes mycoplasma vs Pneumocysitis pneumonia but an induced sputum is now confirmed PCP DFA negative and mycoplasma serology is negative for acute infection. 2. The patient has pain in the back and left lower extremity, was seen seen by Neurology. 3. History of hydrocephalus and ventriculoperitoneal shunt. 4. Hypertension. 5. Morbid obesity 6. Seizures 7. Respiratory alkalosis 8. leukocytosis worse yesterday s/p pulse dose steroids now downtrending, ESR reassuring at 17mm/hr 9. afebrile 10. no pyuria on U/A 11. HIV negative 12. Induced sputum Pneumocystis DFA negative. 13. Mycoplasma IgM negative RECOMMENDATION: 1. continue levofloxacin 750mg PO q24hr to complete 10 day total course, currently on D#5 of 10. (02/24 s/p Zosyn D#4) (02/20 s/p levofloxacin x1 dose) 2. monitor CBC 3. monitor temp curve. 4. chronic pain eval and mgmt per primary service. stable for discharge from ID standpoint. Subjective Allergies: Coded Allergies: No Known Allergies (Unverified , 02/19/17) Subjective remains afebrile. patient has a keenan-positive review of symptoms, c/o excruciating pain, however prior to entering the room yesterday, i observed her speaking on the phone with her family for several minutes and she was comfortable and laughing, but once I entered the room she began moaning in pain. Objective Vital Signs Last 24 Hour Vital Signs Date Time Temp Pulse Resp B/P Pulse Ox O2 Delivery O2 Flow Rate FiO2 02/25/17 12:55 108 139/81 02/25/17 11:36 97.9 95 20 162/102 96 Room Air 02/25/17 11:23 162/102 02/25/17 08:27 98.4 114 20 151/107 96 Room Air 02/25/17 07:59 94 18 Nasal Cannula 3.0 28 02/25/17 07:57 95 Nasal Cannula 3.0 32 02/25/17 07:55 Nasal Cannula 3.0 28 02/25/17 04:00 98.2 82 20 143/89 96 Room Air 02/25/17 00:00 97.8 89 18 145/89 91 Room Air 02/24/17 23:00 98.4 02/24/17 20:00 98.4 96 20 153/97 92 02/24/17 19:51 96 Nasal Cannula 3.0 32 02/24/17 19:50 95 20 Nasal Cannula 3.0 32 02/24/17 19:50 Nasal Cannula 3.0 32 02/24/17 16:00 97.7 111 24 158/81 100 Nasal Cannula 4.0 Height (Feet): 5 Height (Inches): 6.00 Weight (Pounds): 249 Objective GENERAL APPEARANCE: obese, awake, alert, and oriented. HEAD AND NECK: Hirsutism. [place] conjunctivae. chronic disconjugate gaze. HEART: S1 and S2, regular. LUNGS: no crackles. on supplemental NC. ABDOMEN: Obese, soft. no peritoneal signs. EXTREMITIES: Has no edema. Microbiology Date/Time Source Procedure Growth Status 02/22/17 15:07 Sputum Gram Stain - Final Complete 02/22/17 15:07 Sputum Sputum Culture - Final NORMAL UPPER RESPIRATORY KARINE PRESENT Complete 02/22/17 15:07 Sputum Induced Pneumocystis jiroveci Smear (DFA) - Final Complete Laboratory Tests Test 02/25/17 05:30 White Blood Count 14.9 K/UL (4.8-10.8) H Red Blood Count 4.05 M/UL (4.20-5.40) L Hemoglobin 12.8 G/DL (12.0-16.0) Hematocrit 41.3 % (37.0-47.0) Mean Corpuscular Volume 102 FL (80-99) H Mean Corpuscular Hemoglobin 31.5 PG (27.0-31.0) H Mean Corpuscular Hemoglobin Concent 30.9 G/DL (32.0-36.0) L Red Cell Distribution Width 14.1 % (11.6-14.8) Platelet Count 191 K/UL (150-450) Mean Platelet Volume 8.5 FL (6.5-10.1) Neutrophils (%) (Auto) 84.4 % (45.0-75.0) H Lymphocytes (%) (Auto) 10.5 % (20.0-45.0) L Monocytes (%) (Auto) 4.1 % (1.0-10.0) Eosinophils (%) (Auto) 0.0 % (0.0-3.0) Basophils (%) (Auto) 0.9 % (0.0-2.0) Sodium Level 145 mEQ/L (135-145) Potassium Level 4.6 mEQ/L (3.4-4.9) Chloride Level 91 mEQ/L (98-107) L Carbon Dioxide Level 48 mEQ/L (20-30) *H Anion Gap 6 (5-15) Blood Urea Nitrogen 15 mg/dL (7-23) Creatinine 0.8 mg/dL (0.5-0.9) Estimat Glomerular Filtration Rate > 60 mL/min (>60) Glucose Level 75 mg/dL (74-106) Calcium Level 10.1 mg/dL (8.6-10.2) Current Medications Medications (Trade) Dose Ordered Sig/Selvin Route PRN Reason Start Time Stop Time Status Last Admin Dose Admin Albuterol/ Ipratropium (DuoNeb 0.5-3(2.5)mg/3ml) 3 ml Q4H PRN HHN dyspnea 02/24/17 14:00 03/01/17 13:59 Clonidine HCl (Catapres) 0.1 mg Q6H PRN ORAL SBP>160 mmHg 02/20/17 21:45 03/22/17 21:44 02/25/17 11:23 Dextrose (Dextrose 50%) STAT PRN IV Hypoglycemia 02/20/17 07:00 03/22/17 06:59 Heparin Sodium (Porcine) (Heparin 5000 units/ml) 5,000 units EVERY 12 HOURS SUBQ 02/20/17 09:00 03/22/17 08:59 02/25/17 08:41 Levetiracetam (Keppra) 500 mg Q12HR ORAL 02/21/17 15:15 03/23/17 15:14 02/25/17 08:40 Levofloxacin (Levaquin) 750 mg DAILY ORAL 02/25/17 09:00 03/01/17 08:59 02/25/17 08:40 Lorazepam (Ativan 2mg/ml 1ml) 0.5 mg Q4H PRN IV For Anxiety 02/20/17 07:00 02/27/17 06:59 Methylprednisolone Sodium Succinate (Solu-MEDROL) 60 mg DAILY IV 02/24/17 15:00 03/26/17 14:59 02/25/17 08:40 Morphine Sulfate (Morphine Sulfate) 2 mg EVERY 4 HOURS PRN IVP severe pain 7-10 02/20/17 07:00 02/27/17 06:59 02/25/17 13:04 Nitroglycerin (Ntg) 0.4 mg Q5M X 3 DOSES PRN SL Prn Chest Pain 02/20/17 07:00 03/22/17 06:59 Ondansetron HCl (Zofran) 4 mg Q6H PRN IVP Nausea & Vomiting 02/20/17 07:00 03/22/17 06:59 02/24/17 13:50 Promethazine HCl/ Codeine (Phenergan with Codeine) 5 ml EVERY 6 HOURS PRN ORAL cough 02/20/17 07:00 03/22/17 06:59 Temazepam (Restoril) 15 mg HSPRN PRN ORAL Insomnia 02/20/17 07:00 02/27/17 06:59 Theophylline (Paresh-Dur) 100 mg EVERY 12 HOURS ORAL 02/20/17 09:00 03/22/17 08:59 02/25/17 08:40 Sebastien Sol M.D. Feb 25, 2017 14:51
--- NOTE | 2017-02-25 15:47 | Consultation ---
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 She presented to ER with shortness of breath the last 2 weeks.the pt is pw depressed mood, anhedonia. worthlessness. hopeless. decrease energy. no si/hi. Allergies: Coded Allergies: No Known Allergies (Unverified , 02/19/17) Patient History History Provided By: Patient, Medical Record, PMD Healthcare decision maker Resuscitation status Full Code Advanced Directive on File No Past Medical/Surgical History Past Medical/Surgical History: (1) Morbid obesity (2) Left leg pain (3) Chronic lung disease (4) Seizures (5) Aspiration pneumonia (6) COPD exacerbation (7) h/o seizure disorder in childhood (8) single episode generalised seizure. (9) Ventriculo-peritoneal shunt status (10) PLANT OPERATIONS MANAGER (ventriculoperitoneal) shunt status Review of Systems Constitutional: Reports: malaise, weakness Psychiatric: Reports: anxiety, depressed feelings, emotional problems, prior hx Physical Exam General Appearance: no apparent distress, alert, obese Neurologic: alert, oriented x 3, responsive, depressed affect Last 24 Hour Vital Signs Date Time Temp Pulse Resp B/P Pulse Ox O2 Delivery O2 Flow Rate FiO2 02/25/17 12:55 108 139/81 02/25/17 11:36 97.9 95 20 162/102 96 Room Air 02/25/17 11:23 162/102 02/25/17 08:27 98.4 114 20 151/107 96 Room Air 02/25/17 07:59 94 18 Nasal Cannula 3.0 02/25/17 07:57 95 Nasal Cannula 3.0 02/25/17 07:55 Nasal Cannula 3.0 02/25/17 04:00 98.2 82 20 143/89 96 Room Air 02/25/17 00:00 97.8 89 18 145/89 91 Room Air 02/24/17 23:00 98.4 02/24/17 20:00 98.4 96 20 153/97 92 02/24/17 19:51 96 Nasal Cannula 3.0 32 02/24/17 19:50 95 20 Nasal Cannula 3.0 32 02/24/17 19:50 Nasal Cannula 3.0 32 02/24/17 16:00 97.7 111 24 158/81 100 Nasal Cannula 4.0 Intake and Output 02/24/17 02/25/17 19:00 07:00 Intake Total 110.0 ml 350 ml Output Total 950 ml Balance 110.0 ml -600 ml Intake Oral 350 ml IV Total 110.0 ml Output Urine Total 950 ml # Voids 4 # Bowel Movements 1 Laboratory Tests Test 02/25/17 05:30 White Blood Count 14.9 K/UL (4.8-10.8) H Red Blood Count 4.05 M/UL (4.20-5.40) L Hemoglobin 12.8 G/DL (12.0-16.0) Hematocrit 41.3 % (37.0-47.0) Mean Corpuscular Volume 102 FL (80-99) H Mean Corpuscular Hemoglobin 31.5 PG (27.0-31.0) H Mean Corpuscular Hemoglobin Concent 30.9 G/DL (32.0-36.0) L Red Cell Distribution Width 14.1 % (11.6-14.8) Platelet Count 191 K/UL (150-450) Mean Platelet Volume 8.5 FL (6.5-10.1) Neutrophils (%) (Auto) 84.4 % (45.0-75.0) H Lymphocytes (%) (Auto) 10.5 % (20.0-45.0) L Monocytes (%) (Auto) 4.1 % (1.0-10.0) Eosinophils (%) (Auto) 0.0 % (0.0-3.0) Basophils (%) (Auto) 0.9 % (0.0-2.0) Sodium Level 145 mEQ/L (135-145) Potassium Level 4.6 mEQ/L (3.4-4.9) Chloride Level 91 mEQ/L (98-107) L Carbon Dioxide Level 48 mEQ/L (20-30) *H Anion Gap 6 (5-15) Blood Urea Nitrogen 15 mg/dL (7-23) Creatinine 0.8 mg/dL (0.5-0.9) Estimat Glomerular Filtration Rate > 60 mL/min (>60) Glucose Level 75 mg/dL (74-106) Calcium Level 10.1 mg/dL (8.6-10.2) Height (Feet): 5 Height (Inches): 6.00 Weight (Pounds): 249 Medications Current Medications Medications (Trade) Dose Ordered Sig/Selvin Route PRN Reason Start Time Stop Time Status Last Admin Dose Admin Acetazolamide (Diamox) 250 mg TWICE A DAY ORAL 02/25/17 18:00 03/27/17 17:59 Albuterol/ Ipratropium (DuoNeb 0.5-3(2.5)mg/3ml) 3 ml Q4H PRN HHN dyspnea 02/24/17 14:00 03/01/17 13:59 Clonidine HCl (Catapres) 0.1 mg Q6H PRN ORAL SBP>160 mmHg 02/20/17 21:45 03/22/17 21:44 02/25/17 11:23 Dextrose (Dextrose 50%) STAT PRN IV Hypoglycemia 02/20/17 07:00 03/22/17 06:59 Heparin Sodium (Porcine) (Heparin 5000 units/ml) 5,000 units EVERY 12 HOURS SUBQ 02/20/17 09:00 03/22/17 08:59 02/25/17 08:41 Levetiracetam (Keppra) 500 mg Q12HR ORAL 02/21/17 15:15 03/23/17 15:14 02/25/17 08:40 Levofloxacin (Levaquin) 750 mg DAILY ORAL 02/25/17 09:00 03/01/17 08:59 02/25/17 08:40 Lorazepam (Ativan 2mg/ml 1ml) 0.5 mg Q4H PRN IV For Anxiety 02/20/17 07:00 02/27/17 06:59 Methylprednisolone Sodium Succinate (Solu-MEDROL) 60 mg DAILY IV 02/24/17 15:00 03/26/17 14:59 02/25/17 08:40 Morphine Sulfate (Morphine Sulfate) 2 mg EVERY 4 HOURS PRN IVP severe pain 7-10 02/20/17 07:00 02/27/17 06:59 02/25/17 13:04 Nitroglycerin (Ntg) 0.4 mg Q5M X 3 DOSES PRN SL Prn Chest Pain 02/20/17 07:00 03/22/17 06:59 Ondansetron HCl (Zofran) 4 mg Q6H PRN IVP Nausea & Vomiting 02/20/17 07:00 03/22/17 06:59 02/24/17 13:50 Promethazine HCl/ Codeine (Phenergan with Codeine) 5 ml EVERY 6 HOURS PRN ORAL cough 02/20/17 07:00 03/22/17 06:59 Temazepam (Restoril) 15 mg HSPRN PRN ORAL Insomnia 02/20/17 07:00 02/27/17 06:59 Theophylline (Paresh-Dur) 100 mg EVERY 12 HOURS ORAL 02/20/17 09:00 03/22/17 08:59 02/25/17 08:40 Assessment/Plan Status: unchanged Assessment/Plan mdd, mod -lexapro 10mg Cory Iglesias M.D. Feb 25, 2017 15:47
--- NOTE | 2017-02-25 21:45 | Progress Note ---
DATE: 02/25/2017 SUBJECTIVE: The patient continues to be depressed, presents with anhedonia, worthlessness, hopelessness, and decreased energy. MENTAL STATUS EXAMINATION: The patient is alert and oriented x4. Cooperative with examination. Mood is depressed. Affect is constricted, congruent mood. Thought process is linear. Thought content, no suicidal or homicidal ideation. ASSESSMENT: Major depressive disorder. PLAN: 1. The patient will be started with Lexapro 10 mg by mouth every morning. 2. We will continue to follow and readjust the medications. Cory Mcbride M.D. DR: FREDDY JOB#: [id number] CC:
[2017-02-26] VITALS: BP 149/97
[2017-02-26] MEDS: Morphine Sulfate 2mg/ml Inj IVP PRN ×6 (01:18→23:53)
[2017-02-26 04:00] VITALS: BP 126/97
[2017-02-26 08:08] VITALS: BP 145/79
[2017-02-26 08:23] LABS: ANION GAP 9 (5-15); CALCIUM 9.5 mg/dL (8.6-10.2); CARBON DIOXIDE 39 mEQ/L (20-30); CHLORIDE 94 mEQ/L (98-107); GLOMERULAR FILTRATION RATE > 60 mL/min (>60); HEMOLYSIS 33; POTASSIUM 4.6 mEQ/L (3.4-4.9); SODIUM 142 mEQ/L (135-145)
[2017-02-26] MEDS: Theophylline ER 100mg ORAL SCH ×2 (08:54→21:12)
[2017-02-26] MEDS: Solu-MEDROL 125mg Inj IV SCH (08:55)
[2017-02-26] MEDS: Heparin 5000 units/ml inj SUBQ SCH ×2 (08:57→21:14)
--- NOTE | 2017-02-26 10:28 | Pulmonology Progress Note ---
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 CO2 increasing continue Diamox x 1 more day ( CO2 per BMP trending down) neuro follows EEG with mild slowing, but no seizures started on Keppra per neuro, neuro status stable seizure precautions HIV status negative ] CT head no acute IC pathology urine tox screen + opiates DVT prophylaxis Addendum: planned patient for dc today home checked O2 on RA to determine need fo O2 - 77 % ordered ABG, revealed severe hypoxemia and hypercapnia placed on BiPAP and transfer to tele cancel discharge for am: labs, CXR, venous Duplex case discussed and evaluated by supervising physician Subjective Allergies: Coded Allergies: No Known Allergies (Unverified , 02/19/17) Subjective afebrile, leukocytosis trending down Objective Last 24 Hour Vital Signs Date Time Temp Pulse Resp B/P Pulse Ox O2 Delivery O2 Flow Rate FiO2 02/26/17 08:08 98.0 104 20 145/79 93 Nasal Cannula 3.0 02/26/17 07:26 Nasal Cannula 2.0 02/26/17 07:25 99 Nasal Cannula 2.0 02/26/17 07:24 94 20 Nasal Cannula 2.0 02/26/17 07:01 97.7 02/26/17 04:00 97.5 91 19 126/97 91 Room Air 02/26/17 00:00 97.7 92 20 149/97 94 Nasal Cannula 2.0 02/25/17 22:33 Nasal Cannula 2.0 28 02/25/17 22:33 98 Nasal Cannula 2.0 28 02/25/17 22:31 83 18 Nasal Cannula 2.0 28 02/25/17 20:00 97.9 111 20 144/93 94 Nasal Cannula 02/25/17 17:14 95 152/88 02/25/17 16:19 98.5 100 20 152/101 96 Room Air 02/25/17 12:55 108 139/81 02/25/17 11:36 97.9 95 20 162/102 96 Room Air 02/25/17 11:23 162/102 Intake and Output 02/25/17 02/26/17 19:00 07:00 Intake Total 840 ml 480 ml Balance 840 ml 480 ml Intake Oral 840 ml 480 ml # Voids 6 10 # Bowel Movements 2 Objective General Appearance: no acute distress, middle age morbidly obese AA female A/ A/O x 4 HEENT: normocephalic, atraumatic, anicteric Respiratory/Chest: no respiratory distress, no accessory muscle use, decreased breath sounds, O2 via NC Cardiovascular: normal peripheral pulses, normal rate, regular rhythm Abdomen: normal bowel sounds, soft, non tender - obese Neurologic/Psychiatric: no motor/sensory deficits, alert, oriented x 3, responsive Musculoskeletal: normal muscle bulk Laboratory Tests 02/26/17 07:15: Sodium Level 142, Potassium Level 4.6, Chloride Level 94L, Carbon Dioxide Level 39H, Anion Gap 9, Blood Urea Nitrogen 25H, Creatinine 1.0H, Estimat Glomerular Filtration Rate > 60, Glucose Level 85, Calcium Level 9.5 Current Medications Medications (Trade) Dose Ordered Sig/Selvin Route PRN Reason Start Time Stop Time Status Last Admin Dose Admin Acetazolamide (Diamox) 250 mg TWICE A DAY ORAL 02/25/17 18:00 03/27/17 17:59 02/26/17 08:54 Albuterol/ Ipratropium (DuoNeb 0.5-3(2.5)mg/3ml) 3 ml Q4H PRN HHN dyspnea 02/24/17 14:00 03/01/17 13:59 Clonidine HCl (Catapres) 0.1 mg Q6H PRN ORAL SBP>160 mmHg 02/20/17 21:45 03/22/17 21:44 02/25/17 11:23 Dextrose (Dextrose 50%) STAT PRN IV Hypoglycemia 02/20/17 07:00 03/22/17 06:59 Escitalopram Oxalate (Lexapro) 10 mg DAILY ORAL 02/26/17 09:00 03/28/17 08:59 02/26/17 08:55 Heparin Sodium (Porcine) (Heparin 5000 units/ml) 5,000 units EVERY 12 HOURS SUBQ 02/20/17 09:00 03/22/17 08:59 02/26/17 08:57 Levetiracetam (Keppra) 500 mg Q12HR ORAL 02/21/17 15:15 03/23/17 15:14 02/26/17 08:54 Levofloxacin (Levaquin) 750 mg DAILY ORAL 02/25/17 09:00 03/01/17 08:59 02/26/17 08:55 Lorazepam (Ativan 2mg/ml 1ml) 0.5 mg Q4H PRN IV For Anxiety 02/20/17 07:00 02/27/17 06:59 Methylprednisolone Sodium Succinate (Solu-MEDROL) 60 mg DAILY IV 02/24/17 15:00 03/26/17 14:59 02/26/17 08:55 Morphine Sulfate (Morphine Sulfate) 2 mg EVERY 4 HOURS PRN IVP severe pain 7-10 02/20/17 07:00 02/27/17 06:59 02/26/17 06:31 Nitroglycerin (Ntg) 0.4 mg Q5M X 3 DOSES PRN SL Prn Chest Pain 02/20/17 07:00 03/22/17 06:59 Ondansetron HCl (Zofran) 4 mg Q6H PRN IVP Nausea & Vomiting 02/20/17 07:00 03/22/17 06:59 02/24/17 13:50 Promethazine HCl/ Codeine (Phenergan with Codeine) 5 ml EVERY 6 HOURS PRN ORAL cough 02/20/17 07:00 03/22/17 06:59 Temazepam (Restoril) 15 mg HSPRN PRN ORAL Insomnia 02/20/17 07:00 02/27/17 06:59 Theophylline (Paresh-Dur) 100 mg EVERY 12 HOURS ORAL 02/20/17 09:00 03/22/17 08:59 02/26/17 08:54 Ayleen Lees NP ([place]te[place]) Feb 26, 2017 10:28
[2017-02-26] MEDS ORDERED: KEPPRA500 M3 ORAL (10:33)
[2017-02-26] MEDS ORDERED: PROAIR HFA8.5 GM INH (10:33)
[2017-02-26 11:12] LABS: ABG PCO2 77.9 mmHg (35.0-45.0)
[2017-02-26 11:14] LABS: ABG BASE EXCESS 15.2
[2017-02-26 11:15] LABS: ABG ALLEN TEST POSITIVE
[2017-02-26 12:08] VITALS: BP 113/74
[2017-02-26] MEDS: DuoNeb 0.5-3(2.5)mg/3ml neb INH SCH ×2 (13:15→19:45)
--- NOTE | 2017-02-26 13:46 | Infectious Diseases Prog Note ---
Assessment/Plan Assessment/Plan IMPRESSION: 1. Chronic obstructive pulmonary exacerbation and possible interstitial pneumonia, with ground glass opacities on chest CT w/o nodules. not in perihilar distribution. This may be a chronic finding but no prior CT for comparison, and patient is not known to be significantly immunocompromised. poor oxygenation confirmed on today's ABG. s/p PCP DFA negative on induced sputum mycoplasma serology is negative for acute infection. 2. The patient has pain in the back and left lower extremity, was seen seen by Neurology. 3. History of hydrocephalus and ventriculoperitoneal shunt. 4. Hypertension. 5. Morbid obesity 6. Seizures 7. Respiratory acidosis with compensatory metabolic alkalosis, now on BIPAP 8. leukocytosis on pulse dose steroids now downtrending, ESR reassuring at 17mm /hr 9. afebrile 10. no pyuria on U/A 11. HIV negative RECOMMENDATION: 1. continue levofloxacin 750mg PO q24hr to complete 10 day total course, currently on D#6 of 10. (02/24 s/p Zosyn D#4) (02/20 s/p levofloxacin x1 dose) 2. monitor CBC 3. monitor temp curve. 4. chronic pain eval and mgmt per primary service. Subjective Allergies: Coded Allergies: No Known Allergies (Unverified , 02/19/17) Subjective remains afebrile. patient has a keenan-positive review of symptoms, but appears comfortable. Objective Vital Signs Last 24 Hour Vital Signs Date Time Temp Pulse Resp B/P Pulse Ox O2 Delivery O2 Flow Rate FiO2 02/26/17 13:24 96 25 99 Bi-pap 40 02/26/17 13:23 94 24 99 Bi-pap 40 02/26/17 13:17 94 27 99 Facial 40 02/26/17 12:08 98.1 102 20 113/74 94 Room Air 02/26/17 08:08 98.0 104 20 145/79 93 Nasal Cannula 3.0 02/26/17 07:26 Nasal Cannula 2.0 02/26/17 07:25 99 Nasal Cannula 2.0 02/26/17 07:24 94 20 Nasal Cannula 2.0 02/26/17 07:01 97.7 02/26/17 04:00 97.5 91 19 126/97 91 Room Air 02/26/17 00:00 97.7 92 20 149/97 94 Nasal Cannula 2.0 02/25/17 22:33 Nasal Cannula 2.0 28 02/25/17 22:33 98 Nasal Cannula 2.0 28 02/25/17 22:31 83 18 Nasal Cannula 2.0 28 02/25/17 20:00 97.9 111 20 144/93 94 Nasal Cannula 02/25/17 17:14 95 152/88 02/25/17 16:19 98.5 100 20 152/101 96 Room Air Height (Feet): 5 Height (Inches): 6.00 Weight (Pounds): 249 Objective GENERAL APPEARANCE: obese, awake, alert, and oriented. HEAD AND NECK: Hirsutism. [place] conjunctivae. chronic disconjugate gaze. HEART: S1 and S2, regular. LUNGS: no crackles. on supplemental NC. ABDOMEN: Obese, soft. no peritoneal signs. EXTREMITIES: Has no edema. Laboratory Tests Test 02/26/17 07:15 02/26/17 11:05 Sodium Level 142 mEQ/L (135-145) Potassium Level 4.6 mEQ/L (3.4-4.9) Chloride Level 94 mEQ/L (98-107) L Carbon Dioxide Level 39 mEQ/L (20-30) H Anion Gap 9 (5-15) Blood Urea Nitrogen 25 mg/dL (7-23) H Creatinine 1.0 mg/dL (0.5-0.9) H Estimat Glomerular Filtration Rate > 60 mL/min (>60) Glucose Level 85 mg/dL (74-106) Calcium Level 9.5 mg/dL (8.6-10.2) Arterial Blood pH 7.370 (7.350-7.450) Arterial Blood Partial Pressure CO2 77.9 mmHg (35.0-45.0) *H Arterial Blood Partial Pressure O2 42.4 mmHg (75.0-100.0) Arterial Blood HCO3 44.1 mmol/L (22.0-26.0) H Arterial Blood Oxygen Saturation 77.9 % (92.0-98.0) L Arterial Blood Base Excess 15.2 Lalito Test Positive Current Medications Medications (Trade) Dose Ordered Sig/Selvin Route PRN Reason Start Time Stop Time Status Last Admin Dose Admin Acetazolamide (Diamox) 250 mg TWICE A DAY ORAL 02/26/17 18:00 02/28/17 09:01 Albuterol/ Ipratropium (DuoNeb 0.5-3(2.5)mg/3ml) 3 ml Q4H PRN HHN dyspnea 02/24/17 14:00 03/01/17 13:59 Albuterol/ Ipratropium (DuoNeb 0.5-3(2.5)mg/3ml) 3 ml TIDRT INH 02/26/17 13:00 03/03/17 12:59 02/26/17 13:15 Clonidine HCl (Catapres) 0.1 mg Q6H PRN ORAL SBP>160 mmHg 02/20/17 21:45 03/22/17 21:44 02/25/17 11:23 Dextrose (Dextrose 50%) STAT PRN IV Hypoglycemia 02/20/17 07:00 03/22/17 06:59 Escitalopram Oxalate (Lexapro) 10 mg DAILY ORAL 02/26/17 09:00 03/28/17 08:59 02/26/17 08:55 Heparin Sodium (Porcine) (Heparin 5000 units/ml) 5,000 units EVERY 12 HOURS SUBQ 02/20/17 09:00 03/22/17 08:59 02/26/17 08:57 Levetiracetam (Keppra) 500 mg Q12HR ORAL 02/21/17 15:15 03/23/17 15:14 02/26/17 08:54 Levofloxacin (Levaquin) 750 mg DAILY ORAL 02/25/17 09:00 03/01/17 08:59 02/26/17 08:55 Lorazepam (Ativan 2mg/ml 1ml) 0.5 mg Q4H PRN IV For Anxiety 02/20/17 07:00 02/27/17 06:59 Methylprednisolone Sodium Succinate (Solu-MEDROL) 60 mg DAILY IV 02/24/17 15:00 03/26/17 14:59 02/26/17 08:55 Morphine Sulfate (Morphine Sulfate) 2 mg EVERY 4 HOURS PRN IVP severe pain 7-10 02/20/17 07:00 02/27/17 06:59 02/26/17 10:30 Nitroglycerin (Ntg) 0.4 mg Q5M X 3 DOSES PRN SL Prn Chest Pain 02/20/17 07:00 03/22/17 06:59 Ondansetron HCl (Zofran) 4 mg Q6H PRN IVP Nausea & Vomiting 02/20/17 07:00 03/22/17 06:59 02/24/17 13:50 Promethazine HCl/ Codeine (Phenergan with Codeine) 5 ml EVERY 6 HOURS PRN ORAL cough 02/20/17 07:00 03/22/17 06:59 Temazepam (Restoril) 15 mg HSPRN PRN ORAL Insomnia 02/20/17 07:00 02/27/17 06:59 Theophylline (Paresh-Dur) 100 mg EVERY 12 HOURS ORAL 02/20/17 09:00 03/22/17 08:59 02/26/17 08:54 Sebastien Sol M.D. Feb 26, 2017 13:45
[2017-02-26 15:44] VITALS: BP 118/69
--- NOTE | 2017-02-26 18:00 | Diagnostic Imaging Report ---
APPROVED REPORT CPT Code: 20959 Present Symptoms Lower Extremity Pain: Left LEFT LEG: Venous imaging reveals a patent deep venous system. There is no evidence of thrombus within the femoral, popliteal or tibial segments. The greater saphenous vein is also within normal limits. Doppler indicates normal spontaneous flow within these segments.
[2017-02-26 20:25] VITALS: BP 148/79
[2017-02-27] VITALS (7 sets, daily range): BP systolic 109–165; BP diastolic 54–95
[2017-02-27] MEDS: Morphine Sulfate 2mg/ml Inj IVP PRN ×4 (05:13→22:15)
[2017-02-27] MEDS: DuoNeb 0.5-3(2.5)mg/3ml neb INH SCH ×3 (07:03→19:31)
[2017-02-27 07:18] LABS: ANION GAP 7 (5-15); CALCIUM 9.6 mg/dL (8.6-10.2); CARBON DIOXIDE 38 mEQ/L (20-30); CHLORIDE 98 mEQ/L (98-107); GLOMERULAR FILTRATION RATE > 60 mL/min (>60); HEMOLYSIS 4; POTASSIUM 4.1 mEQ/L (3.4-4.9); SODIUM 143 mEQ/L (135-145)
[2017-02-27 07:25] LABS: BASOPHILS % (AUTO) 0.5 % (0.0-2.0); EOSINOPHILS % (AUTO) 0.1 % (0.0-3.0); LYMPHOCYTES % (AUTO) 19.8 % (20.0-45.0); MEAN CORPUSCULAR HEMOGLOBIN 31.5 PG (27.0-31.0); MEAN CORPUSCULAR HGB CONC 31.2 G/DL (32.0-36.0); MEAN CORPUSCULAR VOLUME 101 FL (80-99); MEAN PLATELET VOLUME 8.8 FL (6.5-10.1); MONOCYTES % (AUTO) 6.5 % (1.0-10.0); NEUTROPHILS % (AUTO) 73.1 % (45.0-75.0); PLATELET COUNT 201 K/UL (150-450); RED BLOOD COUNT 3.82 M/UL (4.20-5.40); RED CELL DISTRIBUTION WIDTH 14.4 % (11.6-14.8)
[2017-02-27 09:23] LABS: EOSINOPHILS % (AUTO) 1.6 % (0.0-3.0); LYMPHOCYTES % (AUTO) 19.7 % (20.0-45.0); MEAN CORPUSCULAR HEMOGLOBIN 32.1 PG (27.0-31.0); MEAN CORPUSCULAR HGB CONC 31.7 G/DL (32.0-36.0); MEAN CORPUSCULAR VOLUME 101 FL (80-99); MEAN PLATELET VOLUME 8.7 FL (6.5-10.1); MONOCYTES % (AUTO) 4.5 % (1.0-10.0); NEUTROPHILS % (AUTO) 73.2 % (45.0-75.0); PLATELET COUNT 208 K/UL (150-450); RED BLOOD COUNT 3.93 M/UL (4.20-5.40); RED CELL DISTRIBUTION WIDTH 14.5 % (11.6-14.8); WHITE BLOOD COUNT 13.3 K/UL (4.8-10.8)
[2017-02-27] MEDS: Solu-MEDROL 125mg Inj IV SCH (09:35)
[2017-02-27] MEDS: Theophylline ER 100mg ORAL SCH ×2 (09:35→20:47)
[2017-02-27 09:36] LABS: ABG ALLEN TEST POSITIVE; ABG BASE EXCESS 6.5
[2017-02-27] MEDS: Heparin 5000 units/ml inj SUBQ SCH ×2 (09:38→20:50)
[2017-02-27 09:46] LABS: ANION GAP 9 (5-15); CALCIUM 9.4 mg/dL (8.6-10.2); CARBON DIOXIDE 35 mEQ/L (20-30); CHLORIDE 96 mEQ/L (98-107); GLOMERULAR FILTRATION RATE > 60 mL/min (>60); HEMOLYSIS 30; POTASSIUM 4.2 mEQ/L (3.4-4.9); SODIUM 140 mEQ/L (135-145)
--- NOTE | 2017-02-27 10:15 | Infectious Diseases Prog Note ---
Assessment/Plan Assessment/Plan A: COPD exacerbation Pneumonia Hypercapnic respiratory failure Seizure disorder Depression history of hydrocephalus Morbid obesity P; continue levofloxacin 750mg PO q24hr to complete 10 day total course, currently on D#7 of 10. Subjective ROS Limited/Unobtainable: Yes Allergies: Coded Allergies: No Known Allergies (Unverified , 02/19/17) Objective Vital Signs Last 24 Hour Vital Signs Date Time Temp Pulse Resp B/P Pulse Ox O2 Delivery O2 Flow Rate FiO2 02/27/17 09:47 24 Facial 40 02/27/17 08:00 97.7 87 20 109/62 98 Room Air 02/27/17 07:13 92 20 96 Nasal Cannula 4.0 02/27/17 07:08 92 Nasal Cannula 4.0 02/27/17 07:08 Nasal Cannula 4.0 02/27/17 07:03 92 20 96 Nasal Cannula 4.0 02/27/17 05:43 97.7 02/27/17 04:25 98.0 56 20 144/91 65 02/27/17 04:00 77 02/27/17 03:33 75 13 97 Facial 40 02/27/17 01:15 79 13 96 Facial 40 02/27/17 00:24 97.7 92 20 165/95 95 Room Air 02/27/17 00:00 93 21 97 Facial 40 02/27/17 00:00 84 02/26/17 23:53 165/95 02/26/17 20:25 98.0 103 20 148/79 95 Room Air 02/26/17 20:00 Nasal Cannula 4.0 36 02/26/17 20:00 96 Nasal Cannula 4.0 36 02/26/17 20:00 98 02/26/17 19:53 98 20 98 Nasal Cannula 4.0 36 02/26/17 19:45 95 20 96 Nasal Cannula 4.0 36 02/26/17 15:44 96.1 98 18 118/69 93 Nasal Cannula 4.0 02/26/17 15:20 92 20 95 02/26/17 13:24 96 25 99 Bi-pap 40 02/26/17 13:23 94 24 99 Bi-pap 40 02/26/17 13:17 94 27 99 Facial 40 02/26/17 12:08 98.1 102 20 113/74 94 Room Air 02/26/17 12:00 94 Height (Feet): 5 Height (Inches): 6.00 Weight (Pounds): 249 HEENT: other - on BIPAP Respiratory/Chest: decreased breath sounds Cardiovascular: normal rate Abdomen: soft, non tender Extremities: no edema Neurologic/Psychiatric: other - sleeping Laboratory Tests Test 02/26/17 11:05 02/27/17 06:15 02/27/17 09:10 02/27/17 09:25 Arterial Blood pH 7.370 (7.350-7.450) 7.220 (7.350-7.450) Arterial Blood Partial Pressure CO2 77.9 mmHg (35.0-45.0) *H 92.0 mmHg (35.0-45.0) *H Arterial Blood Partial Pressure O2 42.4 mmHg (75.0-100.0) 74.8 mmHg (75.0-100.0) L Arterial Blood HCO3 44.1 mmol/L (22.0-26.0) H 37.2 mmol/L (22.0-26.0) H Arterial Blood Oxygen Saturation 77.9 % (92.0-98.0) L 93.3 % (92.0-98.0) Arterial Blood Base Excess 15.2 6.5 Lalito Test Positive Positive White Blood Count 13.0 K/UL (4.8-10.8) H 13.3 K/UL (4.8-10.8) H Red Blood Count 3.82 M/UL (4.20-5.40) L 3.93 M/UL (4.20-5.40) L Hemoglobin 12.0 G/DL (12.0-16.0) 12.6 G/DL (12.0-16.0) Hematocrit 38.6 % (37.0-47.0) 39.8 % (37.0-47.0) Mean Corpuscular Volume 101 FL (80-99) H 101 FL (80-99) H Mean Corpuscular Hemoglobin 31.5 PG (27.0-31.0) H 32.1 PG (27.0-31.0) H Mean Corpuscular Hemoglobin Concent 31.2 G/DL (32.0-36.0) L 31.7 G/DL (32.0-36.0) L Red Cell Distribution Width 14.4 % (11.6-14.8) 14.5 % (11.6-14.8) Platelet Count 201 K/UL (150-450) 208 K/UL (150-450) Mean Platelet Volume 8.8 FL (6.5-10.1) 8.7 FL (6.5-10.1) Neutrophils (%) (Auto) 73.1 % (45.0-75.0) 73.2 % (45.0-75.0) Lymphocytes (%) (Auto) 19.8 % (20.0-45.0) L 19.7 % (20.0-45.0) L Monocytes (%) (Auto) 6.5 % (1.0-10.0) 4.5 % (1.0-10.0) Eosinophils (%) (Auto) 0.1 % (0.0-3.0) 1.6 % (0.0-3.0) Basophils (%) (Auto) 0.5 % (0.0-2.0) 1.0 % (0.0-2.0) Sodium Level 143 mEQ/L (135-145) 140 mEQ/L (135-145) Potassium Level 4.1 mEQ/L (3.4-4.9) 4.2 mEQ/L (3.4-4.9) Chloride Level 98 mEQ/L (98-107) 96 mEQ/L (98-107) L Carbon Dioxide Level 38 mEQ/L (20-30) H 35 mEQ/L (20-30) H Anion Gap 7 (5-15) 9 (5-15) Blood Urea Nitrogen 21 mg/dL (7-23) 19 mg/dL (7-23) Creatinine 1.0 mg/dL (0.5-0.9) H 1.0 mg/dL (0.5-0.9) H Estimat Glomerular Filtration Rate > 60 mL/min (>60) > 60 mL/min (>60) Glucose Level 99 mg/dL (74-106) 184 mg/dL (74-106) H Calcium Level 9.6 mg/dL (8.6-10.2) 9.4 mg/dL (8.6-10.2) Current Medications Medications (Trade) Dose Ordered Sig/Selvin Route PRN Reason Start Time Stop Time Status Last Admin Dose Admin Acetazolamide (Diamox) 250 mg TWICE A DAY ORAL 02/26/17 18:00 02/28/17 09:01 02/27/17 09:35 Albuterol/ Ipratropium (DuoNeb 0.5-3(2.5)mg/3ml) 3 ml Q4H PRN HHN dyspnea 02/24/17 14:00 03/01/17 13:59 Albuterol/ Ipratropium (DuoNeb 0.5-3(2.5)mg/3ml) 3 ml TIDRT INH 02/26/17 13:00 03/03/17 12:59 02/27/17 07:03 Clonidine HCl (Catapres) 0.1 mg Q6H PRN ORAL SBP>160 mmHg 02/20/17 21:45 03/22/17 21:44 02/26/17 23:53 Dextrose (Dextrose 50%) STAT PRN IV Hypoglycemia 02/20/17 07:00 03/22/17 06:59 Escitalopram Oxalate (Lexapro) 10 mg DAILY ORAL 02/26/17 09:00 03/28/17 08:59 02/27/17 09:35 Heparin Sodium (Porcine) (Heparin 5000 units/ml) 5,000 units EVERY 12 HOURS SUBQ 02/20/17 09:00 03/22/17 08:59 02/27/17 09:38 Levetiracetam (Keppra) 500 mg Q12HR ORAL 02/21/17 15:15 03/23/17 15:14 02/27/17 09:35 Levofloxacin (Levaquin) 750 mg DAILY ORAL 02/25/17 09:00 03/01/17 08:59 02/27/17 09:35 Methylprednisolone Sodium Succinate (Solu-MEDROL) 60 mg DAILY IV 02/24/17 15:00 03/26/17 14:59 02/27/17 09:35 Nitroglycerin (Ntg) 0.4 mg Q5M X 3 DOSES PRN SL Prn Chest Pain 02/20/17 07:00 03/22/17 06:59 Ondansetron HCl (Zofran) 4 mg Q6H PRN IVP Nausea & Vomiting 02/20/17 07:00 03/22/17 06:59 02/27/17 06:19 Promethazine HCl/ Codeine (Phenergan with Codeine) 5 ml EVERY 6 HOURS PRN ORAL cough 02/20/17 07:00 03/22/17 06:59 Theophylline (Paresh-Dur) 100 mg EVERY 12 HOURS ORAL 02/20/17 09:00 03/22/17 08:59 02/27/17 09:35 BERNARD KYLE Feb 27, 2017 10:15
--- NOTE | 2017-02-27 12:17 | Diagnostic Imaging Report ---
Indication: Dyspnea Comparison: 02/23/17 A single view chest radiograph was obtained. Findings: Right PARALEGAL shunt again noted. Perihilar infiltrates and cardiomegaly demonstrated. Findings have not changed significantly. Heart size is mildly enlarged and stable. Impression: Patchy perihilar infiltrates.
--- NOTE | 2017-02-27 12:19 | Pulmonology Progress Note ---
Assessment/Plan Problems: (1) Aspiration pneumonia (2) COPD exacerbation (3) Ventriculo-peritoneal shunt status (4) Acute hypercapnic respiratory failure (5) Seizures (6) Morbid obesity Assessment/Plan titrate bipap one dose of diuretics check sputum respiratory treatment Subjective ROS Limited/Unobtainable: No Interval Events: transferred to [facility] b/o acute respiratory acidosis despite BIPAP Allergies: Coded Allergies: No Known Allergies (Unverified , 02/19/17) Objective Last 24 Hour Vital Signs Date Time Temp Pulse Resp B/P Pulse Ox O2 Delivery O2 Flow Rate FiO2 02/27/17 09:47 24 Facial 40 02/27/17 08:00 97.7 87 20 109/62 98 Room Air 02/27/17 07:13 92 20 96 Nasal Cannula 4.0 02/27/17 07:08 92 Nasal Cannula 4.0 02/27/17 07:08 Nasal Cannula 4.0 02/27/17 07:03 92 20 96 Nasal Cannula 4.0 02/27/17 05:43 97.7 02/27/17 04:25 98.0 56 20 144/91 65 02/27/17 04:00 77 02/27/17 03:33 75 13 97 Facial 40 02/27/17 01:15 79 13 96 Facial 40 02/27/17 00:24 97.7 92 20 165/95 95 Room Air 02/27/17 00:00 93 21 97 Facial 40 02/27/17 00:00 84 02/26/17 23:53 165/95 02/26/17 20:25 98.0 103 20 148/79 95 Room Air 02/26/17 20:00 Nasal Cannula 4.0 36 02/26/17 20:00 96 Nasal Cannula 4.0 36 02/26/17 20:00 98 02/26/17 19:53 98 20 98 Nasal Cannula 4.0 36 02/26/17 19:45 95 20 96 Nasal Cannula 4.0 36 02/26/17 15:44 96.1 98 18 118/69 93 Nasal Cannula 4.0 02/26/17 15:20 92 20 95 02/26/17 13:24 96 25 99 Bi-pap 40 02/26/17 13:23 94 24 99 Bi-pap 40 02/26/17 13:17 94 27 99 Facial 40 Intake and Output 02/26/17 02/27/17 19:00 07:00 Intake Total 850 ml Balance 850 ml Intake Oral 850 ml # Voids 2 4 General Appearance: WD/WN HEENT: normocephalic, atraumatic Respiratory/Chest: chest wall non-tender, lungs clear Breasts: no masses Cardiovascular: normal peripheral pulses, regular rhythm Abdomen: normal bowel sounds, soft, non tender Lymphatic: no neck adenopathy Musculoskeletal: normal muscle bulk Laboratory Tests 02/27/17 06:15: White Blood Count 13.0H, Red Blood Count 3.82L, Hemoglobin 12.0, Hematocrit 38.6 , Mean Corpuscular Volume 101H, Mean Corpuscular Hemoglobin 31.5H, Mean Corpuscular Hemoglobin Concent 31.2L, Red Cell Distribution Width 14.4, Platelet Count 201, Mean Platelet Volume 8.8, Neutrophils (%) (Auto) 73.1, Lymphocytes (%) (Auto) 19.8L, Monocytes (%) (Auto) 6.5, Eosinophils (%) (Auto) 0.1, Basophils (%) (Auto) 0.5, Sodium Level 143, Potassium Level 4.1, Chloride Level 98, Carbon Dioxide Level 38H, Anion Gap 7, Blood Urea Nitrogen 21, Creatinine 1.0H, Estimat Glomerular Filtration Rate > 60, Glucose Level 99, Calcium Level 9.6 02/27/17 09:10: White Blood Count 13.3H, Red Blood Count 3.93L, Hemoglobin 12.6, Hematocrit 39.8 , Mean Corpuscular Volume 101H, Mean Corpuscular Hemoglobin 32.1H, Mean Corpuscular Hemoglobin Concent 31.7L, Red Cell Distribution Width 14.5, Platelet Count 208, Mean Platelet Volume 8.7, Neutrophils (%) (Auto) 73.2, Lymphocytes (%) (Auto) 19.7L, Monocytes (%) (Auto) 4.5, Eosinophils (%) (Auto) 1.6, Basophils (%) (Auto) 1.0, Sodium Level 140, Potassium Level 4.2, Chloride Level 96L, Carbon Dioxide Level 35H, Anion Gap 9, Blood Urea Nitrogen 19, Creatinine 1.0H, Estimat Glomerular Filtration Rate > 60, Glucose Level 184H, Calcium Level 9.4 02/27/17 09:25: Arterial Blood pH 7.220*L, Arterial Blood Partial Pressure CO2 92.0*H, Arterial Blood Partial Pressure O2 74.8L, Arterial Blood HCO3 37.2H, Arterial Blood Oxygen Saturation 93.3, Arterial Blood Base Excess 6.5, Lalito Test Positive Current Medications Medications (Trade) Dose Ordered Sig/Selvin Route PRN Reason Start Time Stop Time Status Last Admin Dose Admin Acetazolamide (Diamox) 250 mg TWICE A DAY ORAL 02/26/17 18:00 02/28/17 09:01 02/27/17 09:35 Albuterol/ Ipratropium (DuoNeb 0.5-3(2.5)mg/3ml) 3 ml Q4H PRN HHN dyspnea 02/24/17 14:00 03/01/17 13:59 Albuterol/ Ipratropium (DuoNeb 0.5-3(2.5)mg/3ml) 3 ml TIDRT INH 02/26/17 13:00 03/03/17 12:59 02/27/17 07:03 Clonidine HCl (Catapres) 0.1 mg Q6H PRN ORAL SBP>160 mmHg 02/20/17 21:45 03/22/17 21:44 02/26/17 23:53 Dextrose (Dextrose 50%) STAT PRN IV Hypoglycemia 02/20/17 07:00 03/22/17 06:59 Escitalopram Oxalate (Lexapro) 10 mg DAILY ORAL 02/26/17 09:00 03/28/17 08:59 02/27/17 09:35 Heparin Sodium (Porcine) (Heparin 5000 units/ml) 5,000 units EVERY 12 HOURS SUBQ 02/20/17 09:00 03/22/17 08:59 02/27/17 09:38 Levetiracetam (Keppra) 500 mg Q12HR ORAL 02/21/17 15:15 03/23/17 15:14 02/27/17 09:35 Levofloxacin (Levaquin) 750 mg DAILY ORAL 02/25/17 09:00 03/01/17 08:59 02/27/17 09:35 Methylprednisolone Sodium Succinate (Solu-MEDROL) 60 mg DAILY IV 02/24/17 15:00 03/26/17 14:59 02/27/17 09:35 Nitroglycerin (Ntg) 0.4 mg Q5M X 3 DOSES PRN SL Prn Chest Pain 02/20/17 07:00 03/22/17 06:59 Ondansetron HCl (Zofran) 4 mg Q6H PRN IVP Nausea & Vomiting 02/20/17 07:00 03/22/17 06:59 02/27/17 06:19 Promethazine HCl/ Codeine (Phenergan with Codeine) 5 ml EVERY 6 HOURS PRN ORAL cough 02/20/17 07:00 03/22/17 06:59 Theophylline (Paresh-Dur) 100 mg EVERY 12 HOURS ORAL 02/20/17 09:00 03/22/17 08:59 02/27/17 09:35 CRISTNIA BRAMBILA Feb 27, 2017 12:19
--- NOTE | 2017-02-27 14:13 | Cardiology Report ---
APPROVED REPORT EXAM: Two-dimensional and M-mode echocardiogram with Doppler and color Doppler. INDICATION Left ventricular function M-Mode DIMENSIONS IVSd1.5 (0.7-1.1cm)Left Atrium (MM)4.9 (1.6-4.0cm) LVDd4.2 (3.5-5.6cm)Aortic Root2.8 (2.0-3.7cm) PWd1.2 (0.7-1.1cm)Aortic Cusp Exc.1.9 (1.5-2.0cm) LVDs1.7 (2.5-4.0cm) PWs2.2 cm Normal left ventricular chamber size, systolic function and wall motion. Left ventricular ejection fraction estimated to be 55 %. Mild left ventricular hypertrophy. No evidence of pericardial fat or effusion. All other cardiac chamber sizes are within normal limits. Normal appearing aortic, mitral, puImonic and tricuspid valves. Mild mitral annulus and aortic root calcification. IVC at normal size with physiologic collapse. A color flow and spectral Doppler study was performed and revealed: No aortic regurgitation. Trace mitral regurgitation. Mitral inflow velocities indicates normal left ventricular diastolic function. Trace tricuspid regurgitation. Tricuspid systolic velocities suggests peak right ventricular systolic pressure of 20 mmHg. Trace pulmonic regurgitation present.
--- NOTE | 2017-02-27 14:30 | Diagnostic Imaging Report ---
APPROVED REPORT CPT Code: 76268 Present Symptoms Lower Extremity Pain: Bilateral BILATERAL: Imaging reveals a patent deep venous system bilaterally. There is no evidence of thrombus within the femoral, popliteal or tibial segments. The greater saphenous veins are also within normal limits. Doppler indicates normal spontaneous flow within these segments.
--- NOTE | 2017-02-27 22:30 | Progress Note ---
DATE: 02/27/2017 SUBJECTIVE: The patient is still depressed, coping with her stressors. No behavior issues. Cooperative and pleasant. MENTAL STATUS EXAMINATION: The patient is alert and oriented x3. Mood is depressed. Affect is constricted. Congruent with mood. Thought process is concrete. Thought content, no suicidal or homicidal ideations. ASSESSMENT: Depression. PLAN: 1. The patient will be continued on current medication. 2. We will continue to follow and readjust the medications. Cory Mcbride M.D. DR: MAMTA JOB#: [id number] CC:
[2017-02-28] VITALS: BP 133/100
[2017-02-28] MEDS: Morphine Sulfate 2mg/ml Inj IVP PRN ×5 (02:57→21:31)
[2017-02-28 04:00] VITALS: BP 128/100
[2017-02-28] MEDS: DuoNeb 0.5-3(2.5)mg/3ml neb INH SCH ×3 (07:57→19:17)
[2017-02-28 08:00] VITALS: BP 134/63
[2017-02-28] MEDS: Solu-MEDROL 125mg Inj IV SCH (08:25)
[2017-02-28] MEDS: Theophylline ER 100mg ORAL SCH ×2 (08:25→21:13)
[2017-02-28] MEDS: Heparin 5000 units/ml inj SUBQ SCH ×2 (08:27→21:17)
--- NOTE | 2017-02-28 09:57 | Infectious Diseases Prog Note ---
Assessment/Plan Assessment/Plan A: COPD exacerbation Pneumonia Hypercapnic respiratory failure Seizure disorder Depression history of hydrocephalus Morbid obesity P; continue levofloxacin 750mg PO q24hr to complete 10 day total course, currently on D#8 of 10. Subjective ROS Limited/Unobtainable: Yes Allergies: Coded Allergies: No Known Allergies (Unverified , 02/19/17) Objective Vital Signs Last 24 Hour Vital Signs Date Time Temp Pulse Resp B/P Pulse Ox O2 Delivery O2 Flow Rate FiO2 02/28/17 08:08 86 22 95 Nasal Cannula 4.0 36 02/28/17 08:00 91 22 97 Bi-pap 40 02/28/17 08:00 97.9 87 19 134/63 97 Nasal Cannula 4.0 02/28/17 06:48 Bi-pap 40 02/28/17 06:48 79 18 97 Facial 40 02/28/17 06:48 97 Bi-pap 40 02/28/17 05:09 78 21 99 Facial 40 02/28/17 04:00 98.6 94 20 128/100 98 Nasal Cannula 02/28/17 04:00 40 02/28/17 04:00 95 02/28/17 03:20 89 17 97 Facial 40 02/28/17 00:52 89 14 97 Facial 40 02/28/17 00:00 101 02/28/17 00:00 97.0 68 20 133/100 97 Nasal Cannula 02/27/17 23:52 92 16 97 Facial 40 02/27/17 22:00 40 02/27/17 21:56 96 25 96 Facial 40 02/27/17 20:00 96.2 106 20 159/64 96 Nasal Cannula 02/27/17 20:00 4.0 02/27/17 19:41 110 27 93 Nasal Cannula 4.0 36 02/27/17 19:35 25 Facial 40 02/27/17 19:34 99 25 96 Bi-pap 40 02/27/17 19:34 96 Bi-pap 40 02/27/17 19:34 40 02/27/17 19:34 Bi-pap 40 02/27/17 19:22 99 02/27/17 16:08 4.0 02/27/17 16:05 77 02/27/17 16:05 97.7 88 20 117/54 98 Nasal Cannula 02/27/17 13:20 83 20 96 Nasal Cannula 4.0 02/27/17 13:10 81 22 94 Nasal Cannula 4.0 02/27/17 12:56 98.2 76 19 115/58 98 Nasal Cannula 4.0 02/27/17 12:15 98.1 100 20 113/56 98 Nasal Cannula 4.0 02/27/17 12:00 84 Height (Feet): 5 Height (Inches): 6.00 Weight (Pounds): 249 General Appearance: no acute distress HEENT: mucous membranes moist Respiratory/Chest: expiratory wheezing Cardiovascular: normal rate Abdomen: soft, non tender Extremities: no edema Neurologic/Psychiatric: other - sleeping Current Medications Medications (Trade) Dose Ordered Sig/Selvin Route PRN Reason Start Time Stop Time Status Last Admin Dose Admin Albuterol/ Ipratropium (DuoNeb 0.5-3(2.5)mg/3ml) 3 ml Q4H PRN HHN dyspnea 02/24/17 14:00 03/01/17 13:59 Albuterol/ Ipratropium (DuoNeb 0.5-3(2.5)mg/3ml) 3 ml TIDRT INH 02/26/17 13:00 03/03/17 12:59 02/28/17 07:57 Clonidine HCl (Catapres) 0.1 mg Q6H PRN ORAL SBP>160 mmHg 02/20/17 21:45 03/22/17 21:44 02/26/17 23:53 Dextrose (Dextrose 50%) STAT PRN IV Hypoglycemia 02/20/17 07:00 03/22/17 06:59 Escitalopram Oxalate (Lexapro) 10 mg DAILY ORAL 02/26/17 09:00 03/28/17 08:59 02/28/17 08:26 Heparin Sodium (Porcine) (Heparin 5000 units/ml) 5,000 units EVERY 12 HOURS SUBQ 02/20/17 09:00 03/22/17 08:59 02/28/17 08:27 Levetiracetam (Keppra) 500 mg Q12HR ORAL 02/21/17 15:15 03/23/17 15:14 02/28/17 08:26 Levofloxacin (Levaquin) 750 mg DAILY ORAL 02/25/17 09:00 03/01/17 08:59 02/28/17 08:25 Methylprednisolone Sodium Succinate (Solu-MEDROL) 60 mg DAILY IV 02/24/17 15:00 03/26/17 14:59 02/28/17 08:25 Morphine Sulfate (Morphine Sulfate) 2 mg Q4H PRN IVP PAIN 4-10 02/27/17 13:00 03/06/17 12:59 02/28/17 08:30 Nitroglycerin (Ntg) 0.4 mg Q5M X 3 DOSES PRN SL Prn Chest Pain 02/20/17 07:00 03/22/17 06:59 Ondansetron HCl (Zofran) 4 mg Q6H PRN IVP Nausea & Vomiting 02/20/17 07:00 03/22/17 06:59 02/27/17 06:19 Promethazine HCl/ Codeine (Phenergan with Codeine) 5 ml EVERY 6 HOURS PRN ORAL cough 02/20/17 07:00 03/22/17 06:59 Theophylline (Paresh-Dur) 100 mg EVERY 12 HOURS ORAL 02/20/17 09:00 03/22/17 08:59 02/28/17 08:25 BERNARD KYLE Feb 28, 2017 09:57
--- NOTE | 2017-02-28 10:26 | Pulmonology Progress Note ---
Assessment/Plan Problems: (1) Aspiration pneumonia (2) COPD exacerbation (3) Ventriculo-peritoneal shunt status (4) Acute hypercapnic respiratory failure (5) Seizures (6) Morbid obesity Assessment/Plan titrate bipap one dose of diuretics check sputum respiratory treatment repeat abg pt/ot evaluation Subjective ROS Limited/Unobtainable: No Constitutional: Reports: no symptoms HEENT: Repors: no symptoms Allergies: Coded Allergies: No Known Allergies (Unverified , 02/19/17) Objective Last 24 Hour Vital Signs Date Time Temp Pulse Resp B/P Pulse Ox O2 Delivery O2 Flow Rate FiO2 02/28/17 08:08 86 22 95 Nasal Cannula 4.0 36 02/28/17 08:00 91 22 97 Bi-pap 40 02/28/17 08:00 97.9 87 19 134/63 97 Nasal Cannula 4.0 02/28/17 06:48 Bi-pap 40 02/28/17 06:48 79 18 97 Facial 40 02/28/17 06:48 97 Bi-pap 40 02/28/17 05:09 78 21 99 Facial 40 02/28/17 04:00 98.6 94 20 128/100 98 Nasal Cannula 02/28/17 04:00 40 02/28/17 04:00 95 02/28/17 03:20 89 17 97 Facial 40 02/28/17 00:52 89 14 97 Facial 40 02/28/17 00:00 101 02/28/17 00:00 97.0 68 20 133/100 97 Nasal Cannula 02/27/17 23:52 92 16 97 Facial 40 02/27/17 22:00 40 02/27/17 21:56 96 25 96 Facial 40 02/27/17 20:00 96.2 106 20 159/64 96 Nasal Cannula 02/27/17 20:00 4.0 02/27/17 19:41 110 27 93 Nasal Cannula 4.0 36 02/27/17 19:35 25 Facial 40 02/27/17 19:34 99 25 96 Bi-pap 40 02/27/17 19:34 96 Bi-pap 40 02/27/17 19:34 40 02/27/17 19:34 Bi-pap 40 02/27/17 19:22 99 02/27/17 16:08 4.0 02/27/17 16:05 77 02/27/17 16:05 97.7 88 20 117/54 98 Nasal Cannula 02/27/17 13:20 83 20 96 Nasal Cannula 4.0 02/27/17 13:10 81 22 94 Nasal Cannula 4.0 02/27/17 12:56 98.2 76 19 115/58 98 Nasal Cannula 4.0 02/27/17 12:15 98.1 100 20 113/56 98 Nasal Cannula 4.0 02/27/17 12:00 84 Intake and Output 02/27/17 02/28/17 19:00 07:00 Intake Total 780 ml 400 ml Balance 780 ml 400 ml Intake Oral 780 ml 400 ml # Voids 5 3 General Appearance: WD/WN HEENT: normocephalic, atraumatic Respiratory/Chest: chest wall non-tender, lungs clear Cardiovascular: normal peripheral pulses, regular rhythm Abdomen: normal bowel sounds, no organomegaly Extremities: no cyanosis, no clubbing Skin: no lesions Current Medications Medications (Trade) Dose Ordered Sig/Selvin Route PRN Reason Start Time Stop Time Status Last Admin Dose Admin Albuterol/ Ipratropium (DuoNeb 0.5-3(2.5)mg/3ml) 3 ml Q4H PRN HHN dyspnea 02/24/17 14:00 03/01/17 13:59 Albuterol/ Ipratropium (DuoNeb 0.5-3(2.5)mg/3ml) 3 ml TIDRT INH 02/26/17 13:00 03/03/17 12:59 02/28/17 07:57 Clonidine HCl (Catapres) 0.1 mg Q6H PRN ORAL SBP>160 mmHg 02/20/17 21:45 03/22/17 21:44 02/26/17 23:53 Dextrose (Dextrose 50%) STAT PRN IV Hypoglycemia 02/20/17 07:00 03/22/17 06:59 Escitalopram Oxalate (Lexapro) 10 mg DAILY ORAL 02/26/17 09:00 03/28/17 08:59 02/28/17 08:26 Heparin Sodium (Porcine) (Heparin 5000 units/ml) 5,000 units EVERY 12 HOURS SUBQ 02/20/17 09:00 03/22/17 08:59 02/28/17 08:27 Levetiracetam (Keppra) 500 mg Q12HR ORAL 02/21/17 15:15 03/23/17 15:14 02/28/17 08:26 Levofloxacin (Levaquin) 750 mg DAILY ORAL 02/25/17 09:00 03/01/17 08:59 02/28/17 08:25 Methylprednisolone Sodium Succinate (Solu-MEDROL) 60 mg DAILY IV 02/24/17 15:00 03/26/17 14:59 02/28/17 08:25 Morphine Sulfate (Morphine Sulfate) 2 mg Q4H PRN IVP PAIN 4-10 02/27/17 13:00 03/06/17 12:59 02/28/17 08:30 Nitroglycerin (Ntg) 0.4 mg Q5M X 3 DOSES PRN SL Prn Chest Pain 02/20/17 07:00 03/22/17 06:59 Ondansetron HCl (Zofran) 4 mg Q6H PRN IVP Nausea & Vomiting 02/20/17 07:00 03/22/17 06:59 02/27/17 06:19 Promethazine HCl/ Codeine (Phenergan with Codeine) 5 ml EVERY 6 HOURS PRN ORAL cough 02/20/17 07:00 03/22/17 06:59 Theophylline (Paresh-Dur) 100 mg EVERY 12 HOURS ORAL 02/20/17 09:00 03/22/17 08:59 02/28/17 08:25 CRISTINA BRAMBILA Feb 28, 2017 10:26
[2017-02-28 11:10] LABS: MEAN CORPUSCULAR VOLUME 100 FL (80-99); MEAN PLATELET VOLUME 7.3 FL (6.5-10.1); PLATELET COUNT 204 K/UL (150-450); RED BLOOD COUNT 4.04 M/UL (4.20-5.40); RED CELL DISTRIBUTION WIDTH 14.7 % (11.6-14.8)
[2017-02-28 11:30] LABS: ALANINE AMINOTRANSFERASE 15 U/L (3-33); ALBUMIN/GLOBULIN RATIO 1.6 (1.0-2.7); ANION GAP 6 (5-15); ASPARTATE AMINO TRANSFERASE 11 U/L (5-40); CALCIUM 9.3 mg/dL (8.6-10.2); CARBON DIOXIDE 36 mEQ/L (20-30); CHLORIDE 100 mEQ/L (98-107); CREATININE 0.9 mg/dL (0.5-0.9); GLOMERULAR FILTRATION RATE > 60 mL/min (>60); HEMOLYSIS 5; POTASSIUM 4.4 mEQ/L (3.4-4.9); SODIUM 142 mEQ/L (135-145); TOTAL PROTEIN 6.9 g/dL (6.6-8.7)
[2017-02-28 11:48] LABS: BAND NEUTROPHILS % (MANUAL) 2 % (0-8); BASOPHILS % (MANUAL) 0 % (0-2); EOSINOPHILS % (MANUAL) 0 % (0-3); HYPOCHROMASIA 1+; LYMPHOCYTES % (MANUAL) 7 % (20-45); NEUTROPHILS % (MANUAL) 87 % (45-75); PLATELET ESTIMATE ADEQUATE; PLATELET MORPHOLOGY NORMAL; TOTAL CELLS COUNTED 100
[2017-02-28 11:50] LABS: ANISOCYTOSIS 1+; MACROCYTES 1+
[2017-02-28 11:52] LABS: STOMATOCYTES OCCASIONAL
[2017-02-28 12:00] VITALS: BP 138/77
[2017-02-28 16:00] VITALS: BP 124/77
[2017-02-28 20:08] VITALS: BP 129/75
[2017-03-01] VITALS (7 sets, daily range): BP systolic 129–161; BP diastolic 70–95
--- NOTE | 2017-03-01 | Progress Note ---
SUBJECTIVE: The patient was found sitting in bed, resting, calm, appeared to be depressed. The patient complaining of anxiety. Compliant. MENTAL STATUS EXAMINATION: The patient is alert and oriented x4. Mood is depressed. Affect is constricted. Congruent with mood. Thought process is concrete. Thought content, there is no suicidal or homicidal ideations. Cognition is intact. Insight and judgment good. PLAN: 1. We will start the patient on Klonopin 1 mg p.o. nightly. 2. We will continue Lexapro 10 mg in the morning. 3. We will continue to follow. Cory Mcbride M.D. DR: MAMTA JOB#: [id number] CC:
[2017-03-01] MEDS: Morphine Sulfate 2mg/ml Inj IVP PRN ×5 (04:16→21:59)
[2017-03-01 05:56] LABS: BASOPHILS % (AUTO) 0.5 % (0.0-2.0); EOSINOPHILS % (AUTO) 0.1 % (0.0-3.0); LYMPHOCYTES % (AUTO) 15.3 % (20.0-45.0); MEAN CORPUSCULAR HEMOGLOBIN 31.6 PG (27.0-31.0); MEAN CORPUSCULAR HGB CONC 30.9 G/DL (32.0-36.0); MEAN CORPUSCULAR VOLUME 102 FL (80-99); MEAN PLATELET VOLUME 8.6 FL (6.5-10.1); MONOCYTES % (AUTO) 6.9 % (1.0-10.0); NEUTROPHILS % (AUTO) 77.2 % (45.0-75.0); PLATELET COUNT 221 K/UL (150-450); RED BLOOD COUNT 3.94 M/UL (4.20-5.40); RED CELL DISTRIBUTION WIDTH 14.6 % (11.6-14.8); WHITE BLOOD COUNT 17.2 K/UL (4.8-10.8)
[2017-03-01 06:12] LABS: ALANINE AMINOTRANSFERASE 15 U/L (3-33); ALBUMIN/GLOBULIN RATIO 1.4 (1.0-2.7); ANION GAP 9 (5-15); ASPARTATE AMINO TRANSFERASE 11 U/L (5-40); CALCIUM 8.9 mg/dL (8.6-10.2); CARBON DIOXIDE 33 mEQ/L (20-30); CHLORIDE 100 mEQ/L (98-107); CRP QUANT < 0.3 mg/dL (< 0.5); GLOMERULAR FILTRATION RATE > 60 mL/min (>60); HEMOLYSIS 3; MAGNESIUM 2.2 mg/dL (1.7-2.5); SODIUM 142 mEQ/L (135-145); TOTAL PROTEIN 6.9 g/dL (6.6-8.7)
[2017-03-01] MEDS: DuoNeb 0.5-3(2.5)mg/3ml neb INH SCH ×3 (07:08→19:32)
[2017-03-01 07:48] LABS: ERYTHROCYTE SEDIMENTATION RATE 34 MM/HR (0-20)
[2017-03-01] MEDS: Theophylline ER 100mg ORAL SCH ×2 (08:36→21:23)
[2017-03-01] MEDS: Solu-MEDROL 125mg Inj IV SCH (08:36)
[2017-03-01] MEDS: Heparin 5000 units/ml inj SUBQ SCH ×2 (08:38→21:29)
[2017-03-01 10:12] LABS: ABG BASE EXCESS 7.1; ABG PCO2 77.2 mmHg (35.0-45.0)
[2017-03-01 10:13] LABS: ABG ALLEN TEST POSITIVE
--- NOTE | 2017-03-01 11:28 | Pulmonology Progress Note ---
Assessment/Plan Problems: (1) Aspiration pneumonia (2) COPD exacerbation (3) Ventriculo-peritoneal shunt status (4) Acute hypercapnic respiratory failure (5) Seizures (6) Morbid obesity Assessment/Plan titrate bipap one dose of diuretics check sputum respiratory treatment repeat abg pt/ot evaluation check electrolytes dc planning. Subjective ROS Limited/Unobtainable: No Interval Events: doing better Allergies: Coded Allergies: No Known Allergies (Unverified , 02/19/17) Objective Last 24 Hour Vital Signs Date Time Temp Pulse Resp B/P (MAP) Pulse Ox O2 Delivery O2 Flow Rate FiO2 03/01/17 10:41 98 24 97 Facial 40 03/01/17 08:00 40 03/01/17 07:45 103 03/01/17 07:44 97.5 102 22 135/78 Nasal Cannula 4.0 03/01/17 07:18 110 24 97 Facial 40 03/01/17 07:12 112 20 98 Nasal Cannula 4.0 36 03/01/17 07:11 Nasal Cannula 4.0 36 03/01/17 07:11 97 Nasal Cannula 4.0 03/01/17 07:08 110 20 97 Nasal Cannula 4.0 36 03/01/17 04:00 4.0 03/01/17 04:00 113 03/01/17 04:00 98.1 99 19 132/75 97 Nasal Cannula 4.0 03/01/17 00:24 98.1 98 19 129/70 98 Nasal Cannula 3.0 03/01/17 00:00 4.0 03/01/17 00:00 89 02/28/17 22:12 75 19 96 Facial 40 02/28/17 20:08 96.8 108 19 129/75 94 Nasal Cannula 4.0 02/28/17 20:00 115 02/28/17 20:00 4.0 02/28/17 19:29 95 22 98 Nasal Cannula 4.0 36 02/28/17 19:19 92 20 97 Nasal Cannula 4.0 36 02/28/17 19:18 Nasal Cannula 4.0 36 02/28/17 19:17 92 Nasal Cannula 4.0 02/28/17 16:00 4.0 02/28/17 16:00 114 02/28/17 16:00 98.6 114 19 124/77 96 Nasal Cannula 4.0 02/28/17 14:38 89 22 98 Nasal Cannula 4.0 36 02/28/17 14:36 92 20 97 Nasal Cannula 4.0 36 02/28/17 12:00 98.5 92 19 138/77 97 Nasal Cannula 4.0 02/28/17 12:00 4.0 02/28/17 11:32 100 General Appearance: WD/WN HEENT: normocephalic, atraumatic, anicteric Respiratory/Chest: chest wall non-tender, lungs clear Cardiovascular: normal peripheral pulses Abdomen: normal bowel sounds, soft, non tender, no organomegaly Genitourinary: normal external genitalia Extremities: no cyanosis Skin: no rash Laboratory Tests 03/01/17 04:15: White Blood Count 17.2H, Red Blood Count 3.94L, Hemoglobin 12.4, Hematocrit 40.3 , Mean Corpuscular Volume 102H, Mean Corpuscular Hemoglobin 31.6H, Mean Corpuscular Hemoglobin Concent 30.9L, Red Cell Distribution Width 14.6, Platelet Count 221, Mean Platelet Volume 8.6, Neutrophils (%) (Auto) 77.2H, Lymphocytes (%) (Auto) 15.3L, Monocytes (%) (Auto) 6.9, Eosinophils (%) (Auto) 0.1, Basophils (%) (Auto) 0.5, Erythrocyte Sedimentation Rate 34H, Sodium Level 142, Potassium Level 4.0, Chloride Level 100, Carbon Dioxide Level 33H, Anion Gap 9, Blood Urea Nitrogen 23, Creatinine 1.0H, Estimat Glomerular Filtration Rate > 60, Glucose Level 109#H, Calcium Level 8.9, Phosphorus Level 4.0, Magnesium Level 2.2, Total Bilirubin < 0.2, Aspartate Amino Transf (AST/SGOT) 11 , Alanine Aminotransferase (ALT/SGPT) 15, Alkaline Phosphatase 58, C-Reactive Protein, Quantitative < 0.3, Total Protein 6.9, Albumin 4.1, Globulin 2.8, Albumin/Globulin Ratio 1.4 03/01/17 09:40: Arterial Blood pH 7.290L, Arterial Blood Partial Pressure CO2 77.2*H, Arterial Blood Partial Pressure O2 128.9H, Arterial Blood HCO3 36.3H, Arterial Blood Oxygen Saturation 98.4H, Arterial Blood Base Excess 7.1, Lalito Test Positive Current Medications Medications (Trade) Dose Ordered Sig/Selvin Route PRN Reason Start Time Stop Time Status Last Admin Dose Admin Albuterol/ Ipratropium (DuoNeb 0.5-3(2.5)mg/3ml) 3 ml Q4H PRN HHN dyspnea 02/24/17 14:00 03/01/17 13:59 Albuterol/ Ipratropium (DuoNeb 0.5-3(2.5)mg/3ml) 3 ml TIDRT INH 02/26/17 13:00 03/03/17 12:59 03/01/17 07:08 Clonazepam (KlonoPIN) 1 mg BEDTIME ORAL 02/28/17 21:00 03/07/17 20:59 02/28/17 21:13 Clonidine HCl (Catapres) 0.1 mg Q6H PRN ORAL SBP>160 mmHg 02/20/17 21:45 03/22/17 21:44 02/26/17 23:53 Dextrose (Dextrose 50%) STAT PRN IV Hypoglycemia 02/20/17 07:00 03/22/17 06:59 Escitalopram Oxalate (Lexapro) 10 mg DAILY ORAL 02/26/17 09:00 03/28/17 08:59 03/01/17 08:36 Heparin Sodium (Porcine) (Heparin 5000 units/ml) 5,000 units EVERY 12 HOURS SUBQ 02/20/17 09:00 03/22/17 08:59 03/01/17 08:38 Levetiracetam (Keppra) 500 mg Q12HR ORAL 02/21/17 15:15 03/23/17 15:14 03/01/17 08:36 Levofloxacin (Levaquin) 750 mg DAILY ORAL 02/25/17 09:00 03/02/17 23:59 03/01/17 08:36 Methylprednisolone Sodium Succinate (Solu-MEDROL) 60 mg DAILY IV 02/24/17 15:00 03/26/17 14:59 03/01/17 08:36 Morphine Sulfate (Morphine Sulfate) 2 mg Q4H PRN IVP PAIN 4-10 02/27/17 13:00 03/06/17 12:59 03/01/17 08:36 Nitroglycerin (Ntg) 0.4 mg Q5M X 3 DOSES PRN SL Prn Chest Pain 02/20/17 07:00 03/22/17 06:59 Ondansetron HCl (Zofran) 4 mg Q6H PRN IVP Nausea & Vomiting 02/20/17 07:00 03/22/17 06:59 02/27/17 06:19 Promethazine HCl/ Codeine (Phenergan with Codeine) 5 ml EVERY 6 HOURS PRN ORAL cough 02/20/17 07:00 03/22/17 06:59 Theophylline (Paresh-Dur) 100 mg EVERY 12 HOURS ORAL 02/20/17 09:00 03/22/17 08:59 03/01/17 08:36 CRISTINA BRAMBILA Mar 01, 2017 11:28
--- NOTE | 2017-03-01 14:05 | Infectious Diseases Prog Note ---
Assessment/Plan Assessment/Plan IMPRESSION: 1. Chronic obstructive pulmonary exacerbation and possible interstitial pneumonia, with ground glass opacities on chest CT w/o nodules. This may be a chronic finding but no prior CT for comparison, and patient is not known to be significantly immunocompromised. s/p PCP DFA negative on induced sputum mycoplasma serology is negative for acute infection. 2. CHF exacerbation c/b hypercapneic respiratory failure 3. The patient has pain in the back and left lower extremity, was seen seen by Neurology. 4. History of hydrocephalus and ventriculoperitoneal shunt. 5. Hypertension. 6. Morbid obesity 7. Seizures 8. Respiratory acidosis with compensatory metabolic alkalosis, now on BIPAP 9. leukocytosis on pulse dose steroids, ESR reassuring at 17mm/hr 10. afebrile 11. no pyuria on U/A 11. HIV negative RECOMMENDATION: 1. continue levofloxacin 750mg PO q24hr to complete 10 day total course, currently on D#9 of 10. (02/24 s/p Zosyn D#4) (02/20 s/p levofloxacin x1 dose) 2. monitor CBC 3. monitor temp curve. 4. chronic pain eval and mgmt per primary service. 5. diuresis per primary service. Subjective Constitutional: Reports: no symptoms Respiratory: Reports: shortness of breath Cardiovascular: Reports: no symptoms Neurologic: Reports: no symptoms Skin: Reports: no symptoms Allergies: Coded Allergies: No Known Allergies (Unverified , 02/19/17) Subjective remains afebrile. patient has a keenan-positive review of symptoms, but appears comfortable. Objective Vital Signs Last 24 Hour Vital Signs Date Time Temp Pulse Resp B/P (MAP) Pulse Ox O2 Delivery O2 Flow Rate FiO2 03/01/17 12:51 103 20 99 Nasal Cannula 4.0 36 03/01/17 12:46 102 20 98 Nasal Cannula 4.0 36 03/01/17 11:50 98.9 112 22 150/90 Bi-pap 4.0 03/01/17 10:41 98 24 97 Facial 40 03/01/17 08:00 40 03/01/17 07:45 103 03/01/17 07:44 97.5 102 22 135/78 Nasal Cannula 4.0 03/01/17 07:18 110 24 97 Facial 40 03/01/17 07:12 112 20 98 Nasal Cannula 4.0 36 03/01/17 07:11 Nasal Cannula 4.0 36 03/01/17 07:11 97 Nasal Cannula 4.0 03/01/17 07:08 110 20 97 Nasal Cannula 4.0 36 03/01/17 04:00 4.0 03/01/17 04:00 113 03/01/17 04:00 98.1 99 19 132/75 97 Nasal Cannula 4.0 03/01/17 00:24 98.1 98 19 129/70 98 Nasal Cannula 3.0 03/01/17 00:00 4.0 03/01/17 00:00 89 02/28/17 22:12 75 19 96 Facial 40 02/28/17 20:08 96.8 108 19 129/75 94 Nasal Cannula 4.0 02/28/17 20:00 115 02/28/17 20:00 4.0 02/28/17 19:29 95 22 98 Nasal Cannula 4.0 36 02/28/17 19:19 92 20 97 Nasal Cannula 4.0 36 02/28/17 19:18 Nasal Cannula 4.0 36 02/28/17 19:17 92 Nasal Cannula 4.0 02/28/17 16:00 4.0 02/28/17 16:00 114 02/28/17 16:00 98.6 114 19 124/77 96 Nasal Cannula 4.0 02/28/17 14:38 89 22 98 Nasal Cannula 4.0 36 02/28/17 14:36 92 20 97 Nasal Cannula 4.0 36 Height (Feet): 5 Height (Inches): 6.00 Weight (Pounds): 249 Objective GENERAL APPEARANCE: obese, awake, alert, and oriented. HEAD AND NECK: Hirsutism. [place] conjunctivae. chronic disconjugate gaze. HEART: S1 and S2, regular. LUNGS: no crackles. on supplemental NC. ABDOMEN: Obese, soft. no peritoneal signs. EXTREMITIES: Has no edema. Laboratory Tests Test 03/01/17 04:15 03/01/17 09:40 White Blood Count 17.2 K/UL (4.8-10.8) H Red Blood Count 3.94 M/UL (4.20-5.40) L Hemoglobin 12.4 G/DL (12.0-16.0) Hematocrit 40.3 % (37.0-47.0) Mean Corpuscular Volume 102 FL (80-99) H Mean Corpuscular Hemoglobin 31.6 PG (27.0-31.0) H Mean Corpuscular Hemoglobin Concent 30.9 G/DL (32.0-36.0) L Red Cell Distribution Width 14.6 % (11.6-14.8) Platelet Count 221 K/UL (150-450) Mean Platelet Volume 8.6 FL (6.5-10.1) Neutrophils (%) (Auto) 77.2 % (45.0-75.0) H Lymphocytes (%) (Auto) 15.3 % (20.0-45.0) L Monocytes (%) (Auto) 6.9 % (1.0-10.0) Eosinophils (%) (Auto) 0.1 % (0.0-3.0) Basophils (%) (Auto) 0.5 % (0.0-2.0) Erythrocyte Sedimentation Rate 34 MM/HR (0-20) H Sodium Level 142 mEQ/L (135-145) Potassium Level 4.0 mEQ/L (3.4-4.9) Chloride Level 100 mEQ/L (98-107) Carbon Dioxide Level 33 mEQ/L (20-30) H Anion Gap 9 (5-15) Blood Urea Nitrogen 23 mg/dL (7-23) Creatinine 1.0 mg/dL (0.5-0.9) H Estimat Glomerular Filtration Rate > 60 mL/min (>60) Glucose Level 109 mg/dL (74-106) #H Calcium Level 8.9 mg/dL (8.6-10.2) Phosphorus Level 4.0 mg/dL (2.5-4.8) Magnesium Level 2.2 mg/dL (1.7-2.5) Total Bilirubin < 0.2 mg/dL (0.0-1.2) Aspartate Amino Transf (AST/SGOT) 11 U/L (5-40) Alanine Aminotransferase (ALT/SGPT) 15 U/L (3-33) Alkaline Phosphatase 58 U/L (35-104) C-Reactive Protein, Quantitative < 0.3 mg/dL (< 0.5) Total Protein 6.9 g/dL (6.6-8.7) Albumin 4.1 g/dL (3.5-5.2) Globulin 2.8 g/dL Albumin/Globulin Ratio 1.4 (1.0-2.7) Arterial Blood pH 7.290 (7.350-7.450) Arterial Blood Partial Pressure CO2 77.2 mmHg (35.0-45.0) *H Arterial Blood Partial Pressure O2 128.9 mmHg (75.0-100.0) H Arterial Blood HCO3 36.3 mmol/L (22.0-26.0) H Arterial Blood Oxygen Saturation 98.4 % (92.0-98.0) H Arterial Blood Base Excess 7.1 Lalito Test Positive Current Medications Medications (Trade) Dose Ordered Sig/Selvin Route PRN Reason Start Time Stop Time Status Last Admin Dose Admin Albuterol/ Ipratropium (DuoNeb 0.5-3(2.5)mg/3ml) 3 ml TIDRT INH 02/26/17 13:00 03/03/17 12:59 03/01/17 12:46 Clonazepam (KlonoPIN) 1 mg BEDTIME ORAL 02/28/17 21:00 03/07/17 20:59 02/28/17 21:13 Clonidine HCl (Catapres) 0.1 mg Q6H PRN ORAL SBP>160 mmHg 02/20/17 21:45 03/22/17 21:44 02/26/17 23:53 Dextrose (Dextrose 50%) STAT PRN IV Hypoglycemia 02/20/17 07:00 03/22/17 06:59 Escitalopram Oxalate (Lexapro) 10 mg DAILY ORAL 02/26/17 09:00 03/28/17 08:59 03/01/17 08:36 Heparin Sodium (Porcine) (Heparin 5000 units/ml) 5,000 units EVERY 12 HOURS SUBQ 02/20/17 09:00 03/22/17 08:59 03/01/17 08:38 Levetiracetam (Keppra) 500 mg Q12HR ORAL 02/21/17 15:15 03/23/17 15:14 03/01/17 08:36 Levofloxacin (Levaquin) 750 mg DAILY ORAL 02/25/17 09:00 03/02/17 23:59 03/01/17 08:36 Morphine Sulfate (Morphine Sulfate) 2 mg Q4H PRN IVP PAIN 4-10 02/27/17 13:00 03/06/17 12:59 03/01/17 13:23 Nitroglycerin (Ntg) 0.4 mg Q5M X 3 DOSES PRN SL Prn Chest Pain 02/20/17 07:00 03/22/17 06:59 Ondansetron HCl (Zofran) 4 mg Q6H PRN IVP Nausea & Vomiting 02/20/17 07:00 03/22/17 06:59 02/27/17 06:19 Promethazine HCl/ Codeine (Phenergan with Codeine) 5 ml EVERY 6 HOURS PRN ORAL cough 02/20/17 07:00 03/22/17 06:59 Theophylline (Paresh-Dur) 100 mg EVERY 12 HOURS ORAL 02/20/17 09:00 03/22/17 08:59 03/01/17 08:36 Sebastien Sol M.D. Mar 01, 2017 14:04
[2017-03-01] MEDS ORDERED: Nitroglycerin Subl 0.4mg tab (Bottle Of 25) SL PRN (20:30)
[2017-03-01] MEDS ORDERED: Heparin 5000 units/ml inj SUBQ SCH (21:00)
[2017-03-01] MEDS ORDERED: Promethazine/Codeine 5ml UD ORAL PRN (21:30)
--- NOTE | 2017-03-01 22:53 | General Progress Note ---
Assessment/Plan Status: stable, progressing Assessment/Plan Less anxious MDD -cont current treatment Subjective Constitutional: Reports: weakness Neurologic/Psychiatric: Reports: anxiety, depressed, emotional problems Allergies: Coded Allergies: No Known Allergies (Unverified , 02/19/17) Objective Last 24 Hour Vital Signs Date Time Temp Pulse Resp B/P (MAP) Pulse Ox O2 Delivery O2 Flow Rate FiO2 03/01/17 21:50 97.7 117 20 145/74 94 Nasal Cannula 4.0 03/01/17 21:27 110 26 99 Facial 40 03/01/17 20:00 105 03/01/17 19:59 98.2 121 20 132/76 95 Nasal Cannula 2.0 03/01/17 19:44 117 20 98 Nasal Cannula 4.0 36 03/01/17 19:35 Nasal Cannula 4.0 36 03/01/17 19:35 97 Nasal Cannula 4.0 03/01/17 19:34 115 18 98 Nasal Cannula 4.0 36 03/01/17 16:52 106 26 97 Facial 40 03/01/17 16:00 107 03/01/17 15:36 98.4 108 22 161/95 95 Bi-pap 4.0 03/01/17 14:49 102 28 96 Facial 40 03/01/17 12:51 103 20 99 Nasal Cannula 4.0 36 03/01/17 12:46 102 20 98 Nasal Cannula 4.0 36 03/01/17 12:00 108 03/01/17 11:50 98.9 112 22 150/90 Bi-pap 4.0 03/01/17 10:41 98 24 97 Facial 40 03/01/17 08:00 40 03/01/17 07:45 103 03/01/17 07:44 97.5 102 22 135/78 Nasal Cannula 4.0 03/01/17 07:18 110 24 97 Facial 40 03/01/17 07:12 112 20 98 Nasal Cannula 4.0 36 03/01/17 07:11 Nasal Cannula 4.0 36 03/01/17 07:11 97 Nasal Cannula 4.0 03/01/17 07:08 110 20 97 Nasal Cannula 4.0 36 03/01/17 04:00 4.0 03/01/17 04:00 113 03/01/17 04:00 98.1 99 19 132/75 97 Nasal Cannula 4.0 03/01/17 00:24 98.1 98 19 129/70 98 Nasal Cannula 3.0 03/01/17 00:00 4.0 03/01/17 00:00 89 Intake and Output 03/01/17 03/02/17 19:00 07:00 Intake Total 640 ml Balance 640 ml Intake Oral 640 ml Laboratory Tests 03/01/17 04:15: White Blood Count 17.2H, Red Blood Count 3.94L, Hemoglobin 12.4, Hematocrit 40.3 , Mean Corpuscular Volume 102H, Mean Corpuscular Hemoglobin 31.6H, Mean Corpuscular Hemoglobin Concent 30.9L, Red Cell Distribution Width 14.6, Platelet Count 221, Mean Platelet Volume 8.6, Neutrophils (%) (Auto) 77.2H, Lymphocytes (%) (Auto) 15.3L, Monocytes (%) (Auto) 6.9, Eosinophils (%) (Auto) 0.1, Basophils (%) (Auto) 0.5, Erythrocyte Sedimentation Rate 34H, Sodium Level 142, Potassium Level 4.0, Chloride Level 100, Carbon Dioxide Level 33H, Anion Gap 9, Blood Urea Nitrogen 23, Creatinine 1.0H, Estimat Glomerular Filtration Rate > 60, Glucose Level 109#H, Calcium Level 8.9, Phosphorus Level 4.0, Magnesium Level 2.2, Total Bilirubin < 0.2, Aspartate Amino Transf (AST/SGOT) 11 , Alanine Aminotransferase (ALT/SGPT) 15, Alkaline Phosphatase 58, C-Reactive Protein, Quantitative < 0.3, Total Protein 6.9, Albumin 4.1, Globulin 2.8, Albumin/Globulin Ratio 1.4 03/01/17 09:40: Arterial Blood pH 7.290L, Arterial Blood Partial Pressure CO2 77.2*H, Arterial Blood Partial Pressure O2 128.9H, Arterial Blood HCO3 36.3H, Arterial Blood Oxygen Saturation 98.4H, Arterial Blood Base Excess 7.1, Lalito Test Positive Height (Feet): 5 Height (Inches): 6.00 Weight (Pounds): 249 General Appearance: no apparent distress, alert, obese Neurologic: alert, oriented x 3, responsive, depressed affect Cory Mcbride M.D. Mar 01, 2017 22:53
[2017-03-02] MEDS: Morphine Sulfate 2mg/ml Inj IVP PRN ×6 (01:59→22:20)
[2017-03-02 04:00] VITALS: BP 147/92
[2017-03-02] MEDS: DuoNeb 0.5-3(2.5)mg/3ml neb INH SCH ×3 (07:55→19:40)
[2017-03-02 08:07] LABS: MEAN CORPUSCULAR HEMOGLOBIN 30.8 PG (27.0-31.0); MEAN CORPUSCULAR HGB CONC 30.2 G/DL (32.0-36.0); MEAN CORPUSCULAR VOLUME 102 FL (80-99); MEAN PLATELET VOLUME 8.2 FL (6.5-10.1); PLATELET COUNT 208 K/UL (150-450); RED BLOOD COUNT 3.92 M/UL (4.20-5.40); RED CELL DISTRIBUTION WIDTH 14.7 % (11.6-14.8); WHITE BLOOD COUNT 19.1 K/UL (4.8-10.8)
[2017-03-02 08:14] VITALS: BP 141/73
[2017-03-02 08:25] LABS: ALANINE AMINOTRANSFERASE 14 U/L (3-33); ALBUMIN/GLOBULIN RATIO 1.4 (1.0-2.7); ANION GAP 9 (5-15); ASPARTATE AMINO TRANSFERASE 10 U/L (5-40); CALCIUM 8.7 mg/dL (8.6-10.2); CARBON DIOXIDE 38 mEQ/L (20-30); CHLORIDE 96 mEQ/L (98-107); CREATININE 0.8 mg/dL (0.5-0.9); CRP QUANT < 0.3 mg/dL (< 0.5); GLOMERULAR FILTRATION RATE > 60 mL/min (>60); HEMOLYSIS 2; PHOSPHORUS 3.5 mg/dL (2.5-4.8); POTASSIUM 3.2 mEQ/L (3.4-4.9); SODIUM 143 mEQ/L (135-145); TOTAL PROTEIN 6.6 g/dL (6.6-8.7)
[2017-03-02] MEDS: Theophylline ER 100mg ORAL SCH ×2 (08:56→20:56)
[2017-03-02] MEDS: Heparin 5000 units/ml inj SUBQ SCH ×2 (08:58→20:57)
[2017-03-02 09:15] LABS: ERYTHROCYTE SEDIMENTATION RATE 29 MM/HR (0-20)
[2017-03-02 10:15] LABS: LYMPHOCYTES % (MANUAL) 25 % (20-45); NEUTROPHILS % (MANUAL) 70 % (45-75); TOTAL CELLS COUNTED 100
[2017-03-02 10:16] LABS: ANISOCYTOSIS 1+; BAND NEUTROPHILS % (MANUAL) 0 % (0-8); BASOPHILS % (MANUAL) 0 % (0-2); EOSINOPHILS % (MANUAL) 0 % (0-3); HYPOCHROMASIA 1+; PLATELET ESTIMATE ADEQUATE; PLATELET MORPHOLOGY NORMAL; STOMATOCYTES 1+
[2017-03-02 10:17] LABS: MACROCYTES 1+
[2017-03-02 11:47] VITALS: BP 144/82
--- NOTE | 2017-03-02 13:35 | Infectious Diseases Prog Note ---
Assessment/Plan Assessment/Plan IMPRESSION: 1. Chronic obstructive pulmonary exacerbation and possible interstitial pneumonia, with ground glass opacities on chest CT w/o nodules. This may be a chronic finding but no prior CT for comparison, and patient is not known to be significantly immunocompromised. s/p PCP DFA negative on induced sputum mycoplasma serology is negative for acute infection. 2. CHF exacerbation c/b hypercapneic respiratory failure 3. The patient has pain in the back and left lower extremity, was seen seen by Neurology. 4. History of hydrocephalus and ventriculoperitoneal shunt. 5. Hypertension. 6. Morbid obesity 7. Seizures 8. Respiratory acidosis with compensatory metabolic alkalosis, now on BIPAP 9. leukocytosis on pulse dose steroids (completed yesterday), ESR reassuring at 17mm/hr, repeat CRP yesterday reassuring at <0.3mg/dL 10. afebrile 11. no pyuria on U/A 11. HIV negative RECOMMENDATION: 1. complete levofloxacin 750mg PO q24hr, currently on D#10 of 10. no further abx indicated after she takes today's dose. (02/24 s/p Zosyn D#4) (02/20 s/p levofloxacin x1 dose) 2. monitor CBC 3. monitor temp curve. 4. chronic pain eval and mgmt per primary service. 5. diuresis per primary service. stable for discharge from ID standpoint. Subjective Allergies: Coded Allergies: No Known Allergies (Unverified , 02/19/17) Subjective remains afebrile. patient has a keenan-positive review of symptoms, but appears comfortable. Objective Vital Signs Last 24 Hour Vital Signs Date Time Temp Pulse Resp B/P (MAP) Pulse Ox O2 Delivery O2 Flow Rate FiO2 03/02/17 12:37 120 18 97 Nasal Cannula 4.0 03/02/17 11:47 98.0 113 20 144/82 96 Nasal Cannula 4.0 03/02/17 10:59 87 Room Air 03/02/17 08:14 97.7 106 21 141/73 96 Nasal Cannula 4.0 03/02/17 08:04 Nasal Cannula 4.0 03/02/17 08:04 98 Nasal Cannula 4.0 03/02/17 08:03 115 18 98 Nasal Cannula 4.0 03/02/17 08:02 117 18 98 Nasal Cannula 4.0 03/02/17 04:00 97.5 95 20 147/92 96 Room Air 03/02/17 03:27 97 16 99 Facial 40 03/02/17 01:25 103 16 98 Facial 40 03/01/17 23:25 114 16 98 Facial 40 03/01/17 21:50 97.7 117 20 145/74 94 Nasal Cannula 4.0 03/01/17 21:27 110 26 99 Facial 40 03/01/17 20:00 105 03/01/17 19:59 98.2 121 20 132/76 95 Nasal Cannula 2.0 03/01/17 19:44 117 20 98 Nasal Cannula 4.0 36 03/01/17 19:35 Nasal Cannula 4.0 36 03/01/17 19:35 97 Nasal Cannula 4.0 03/01/17 19:34 115 18 98 Nasal Cannula 4.0 36 03/01/17 16:52 106 26 97 Facial 40 03/01/17 16:00 107 03/01/17 15:36 98.4 108 22 161/95 95 Bi-pap 4.0 03/01/17 14:49 102 28 96 Facial 40 Height (Feet): 5 Height (Inches): 6.00 Weight (Pounds): 249 Objective GENERAL APPEARANCE: obese, awake, alert, and oriented. HEAD AND NECK: Hirsutism. [place] conjunctivae. chronic disconjugate gaze. HEART: S1 and S2, regular. LUNGS: no crackles. on supplemental NC. ABDOMEN: Obese, soft. no peritoneal signs. EXTREMITIES: Has no edema. Laboratory Tests Test 03/02/17 07:35 White Blood Count 19.1 K/UL (4.8-10.8) H Red Blood Count 3.92 M/UL (4.20-5.40) L Hemoglobin 12.1 G/DL (12.0-16.0) Hematocrit 40.0 % (37.0-47.0) Mean Corpuscular Volume 102 FL (80-99) H Mean Corpuscular Hemoglobin 30.8 PG (27.0-31.0) Mean Corpuscular Hemoglobin Concent 30.2 G/DL (32.0-36.0) L Red Cell Distribution Width 14.7 % (11.6-14.8) Platelet Count 208 K/UL (150-450) Mean Platelet Volume 8.2 FL (6.5-10.1) Neutrophils (%) (Auto) % (45.0-75.0) Lymphocytes (%) (Auto) % (20.0-45.0) Monocytes (%) (Auto) % (1.0-10.0) Eosinophils (%) (Auto) % (0.0-3.0) Basophils (%) (Auto) % (0.0-2.0) Differential Total Cells Counted 100 Neutrophils % (Manual) 70 % (45-75) Lymphocytes % (Manual) 25 % (20-45) Monocytes % (Manual) 5 % (1-10) Eosinophils % (Manual) 0 % (0-3) Basophils % (Manual) 0 % (0-2) Band Neutrophils 0 % (0-8) Platelet Estimate Adequate Platelet Morphology Normal Hypochromasia 1+ Anisocytosis 1+ Macrocytosis 1+ Stomatocytes 1+ Erythrocyte Sedimentation Rate 29 MM/HR (0-20) H Sodium Level 143 mEQ/L (135-145) Potassium Level 3.2 mEQ/L (3.4-4.9) L Chloride Level 96 mEQ/L (98-107) L Carbon Dioxide Level 38 mEQ/L (20-30) H Anion Gap 9 (5-15) Blood Urea Nitrogen 17 mg/dL (7-23) Creatinine 0.8 mg/dL (0.5-0.9) Estimat Glomerular Filtration Rate > 60 mL/min (>60) Glucose Level 214 mg/dL (74-106) #H Calcium Level 8.7 mg/dL (8.6-10.2) Phosphorus Level 3.5 mg/dL (2.5-4.8) Magnesium Level 2.0 mg/dL (1.7-2.5) Total Bilirubin 0.2 mg/dL (0.0-1.2) Aspartate Amino Transf (AST/SGOT) 10 U/L (5-40) Alanine Aminotransferase (ALT/SGPT) 14 U/L (3-33) Alkaline Phosphatase 50 U/L (35-104) C-Reactive Protein, Quantitative < 0.3 mg/dL (< 0.5) Total Protein 6.6 g/dL (6.6-8.7) Albumin 3.9 g/dL (3.5-5.2) Globulin 2.7 g/dL Albumin/Globulin Ratio 1.4 (1.0-2.7) Current Medications Medications (Trade) Dose Ordered Sig/Selvin Route PRN Reason Start Time Stop Time Status Last Admin Dose Admin Albuterol/ Ipratropium (DuoNeb 0.5-3(2.5)mg/3ml) 3 ml TIDRT INH 03/02/17 07:00 03/03/17 12:59 03/02/17 12:34 Clonazepam (KlonoPIN) 1 mg BEDTIME ORAL 03/01/17 22:00 03/07/17 21:59 03/01/17 21:22 Clonidine HCl (Catapres) 0.1 mg Q6H PRN ORAL SBP>160 mmHg 03/01/17 21:30 03/22/17 21:29 Dextrose (Dextrose 50%) STAT PRN IV Hypoglycemia 03/01/17 21:30 03/31/17 21:29 Escitalopram Oxalate (Lexapro) 10 mg DAILY ORAL 03/02/17 09:00 03/28/17 08:59 03/02/17 08:56 Heparin Sodium (Porcine) (Heparin 5000 units/ml) 5,000 units EVERY 12 HOURS SUBQ 03/01/17 22:00 03/31/17 21:59 03/02/17 08:58 Levetiracetam (Keppra) 500 mg Q12HR ORAL 03/01/17 22:00 03/23/17 21:59 03/02/17 08:55 Levofloxacin (Levaquin) 750 mg DAILY ORAL 03/02/17 09:00 03/02/17 23:59 03/02/17 08:56 Morphine Sulfate (Morphine Sulfate) 2 mg Q4H PRN IVP PAIN 4-10 03/01/17 21:00 03/06/17 12:59 03/02/17 10:06 Nitroglycerin (Ntg) 0.4 mg Q5M X 3 DOSES PRN SL Prn Chest Pain 03/01/17 20:30 03/22/17 06:59 Ondansetron HCl (Zofran) 4 mg Q6H PRN IVP Nausea & Vomiting 03/01/17 21:30 03/31/17 21:29 Promethazine HCl/ Codeine (Phenergan with Codeine) 5 ml Q6H PRN ORAL cough 03/01/17 21:30 03/31/17 21:29 Theophylline (Paresh-Dur) 100 mg EVERY 12 HOURS ORAL 03/01/17 22:00 03/22/17 21:59 03/02/17 08:56 Sebastien Sol M.D. Mar 02, 2017 13:35
--- NOTE | 2017-03-02 15:08 | Pulmonology Progress Note ---
Assessment/Plan Problems: (1) Aspiration pneumonia (2) COPD exacerbation (3) Ventriculo-peritoneal shunt status (4) Acute hypercapnic respiratory failure (5) Seizures (6) Morbid obesity Assessment/Plan fin ished abx course respiratory treatment pt/ot evaluation check electrolytes dc planning. Subjective ROS Limited/Unobtainable: No Interval Events: asymptomatic Constitutional: Reports: no symptoms HEENT: Repors: no symptoms Respiratory: Reports: no symptoms Allergies: Coded Allergies: No Known Allergies (Unverified , 02/19/17) Objective Last 24 Hour Vital Signs Date Time Temp Pulse Resp B/P (MAP) Pulse Ox O2 Delivery O2 Flow Rate FiO2 03/02/17 12:47 121 18 99 Nasal Cannula 4.0 03/02/17 12:37 120 18 97 Nasal Cannula 4.0 03/02/17 11:47 98.0 113 20 144/82 96 Nasal Cannula 4.0 03/02/17 10:59 87 Room Air 03/02/17 08:14 97.7 106 21 141/73 96 Nasal Cannula 4.0 03/02/17 08:04 Nasal Cannula 4.0 03/02/17 08:04 98 Nasal Cannula 4.0 03/02/17 08:03 115 18 98 Nasal Cannula 4.0 03/02/17 08:02 117 18 98 Nasal Cannula 4.0 03/02/17 04:00 97.5 95 20 147/92 96 Room Air 03/02/17 03:27 97 16 99 Facial 40 03/02/17 01:25 103 16 98 Facial 40 03/01/17 23:25 114 16 98 Facial 40 03/01/17 21:50 97.7 117 20 145/74 94 Nasal Cannula 4.0 03/01/17 21:27 110 26 99 Facial 40 03/01/17 20:00 105 03/01/17 19:59 98.2 121 20 132/76 95 Nasal Cannula 2.0 03/01/17 19:44 117 20 98 Nasal Cannula 4.0 36 03/01/17 19:35 Nasal Cannula 4.0 36 03/01/17 19:35 97 Nasal Cannula 4.0 03/01/17 19:34 115 18 98 Nasal Cannula 4.0 36 03/01/17 16:52 106 26 97 Facial 40 03/01/17 16:00 107 8/23/17 15:36 98.4 108 22 161/95 95 Bi-pap 4.0 General Appearance: WD/WN HEENT: atraumatic Respiratory/Chest: chest wall non-tender, no respiratory distress Cardiovascular: normal peripheral pulses, regularly irregular Abdomen: soft, non tender, no mass Laboratory Tests 03/02/17 07:35: White Blood Count 19.1H, Red Blood Count 3.92L, Hemoglobin 12.1, Hematocrit 40.0 , Mean Corpuscular Volume 102H, Mean Corpuscular Hemoglobin 30.8, Mean Corpuscular Hemoglobin Concent 30.2L, Red Cell Distribution Width 14.7, Platelet Count 208, Mean Platelet Volume 8.2, Neutrophils (%) (Auto) , Lymphocytes (%) (Auto) , Monocytes (%) (Auto) , Eosinophils (%) (Auto) , Basophils (%) (Auto) , Differential Total Cells Counted 100, Neutrophils % ( Manual) 70, Lymphocytes % (Manual) 25, Monocytes % (Manual) 5, Eosinophils % ( Manual) 0, Basophils % (Manual) 0, Band Neutrophils 0, Platelet Estimate Adequate, Platelet Morphology Normal, Hypochromasia 1+, Anisocytosis 1+, Macrocytosis 1+, Stomatocytes 1+, Erythrocyte Sedimentation Rate 29H, Sodium Level 143, Potassium Level 3.2L, Chloride Level 96L, Carbon Dioxide Level 38H, Anion Gap 9, Blood Urea Nitrogen 17, Creatinine 0.8, Estimat Glomerular Filtration Rate > 60, Glucose Level 214#H, Calcium Level 8.7, Phosphorus Level 3.5, Magnesium Level 2.0, Total Bilirubin 0.2, Aspartate Amino Transf (AST/SGOT ) 10, Alanine Aminotransferase (ALT/SGPT) 14, Alkaline Phosphatase 50, C- Reactive Protein, Quantitative < 0.3, Total Protein 6.6, Albumin 3.9, Globulin 2.7, Albumin/Globulin Ratio 1.4 Current Medications Medications (Trade) Dose Ordered Sig/Selvin Route PRN Reason Start Time Stop Time Status Last Admin Dose Admin Albuterol/ Ipratropium (DuoNeb 0.5-3(2.5)mg/3ml) 3 ml TIDRT INH 03/02/17 07:00 03/03/17 12:59 03/02/17 12:34 Clonazepam (KlonoPIN) 1 mg BEDTIME ORAL 03/01/17 22:00 03/07/17 21:59 03/01/17 21:22 Clonidine HCl (Catapres) 0.1 mg Q6H PRN ORAL SBP>160 mmHg 03/01/17 21:30 03/22/17 21:29 Dextrose (Dextrose 50%) STAT PRN IV Hypoglycemia 03/01/17 21:30 03/31/17 21:29 Escitalopram Oxalate (Lexapro) 10 mg DAILY ORAL 03/02/17 09:00 03/28/17 08:59 03/02/17 08:56 Heparin Sodium (Porcine) (Heparin 5000 units/ml) 5,000 units EVERY 12 HOURS SUBQ 03/01/17 22:00 03/31/17 21:59 03/02/17 08:58 Levetiracetam (Keppra) 500 mg Q12HR ORAL 03/01/17 22:00 03/23/17 21:59 03/02/17 08:55 Levofloxacin (Levaquin) 750 mg DAILY ORAL 03/02/17 09:00 03/02/17 23:59 03/02/17 08:56 Morphine Sulfate (Morphine Sulfate) 2 mg Q4H PRN IVP PAIN 4-10 03/01/17 21:00 03/06/17 12:59 03/02/17 14:13 Nitroglycerin (Ntg) 0.4 mg Q5M X 3 DOSES PRN SL Prn Chest Pain 03/01/17 20:30 03/22/17 06:59 Ondansetron HCl (Zofran) 4 mg Q6H PRN IVP Nausea & Vomiting 03/01/17 21:30 03/31/17 21:29 Promethazine HCl/ Codeine (Phenergan with Codeine) 5 ml Q6H PRN ORAL cough 03/01/17 21:30 03/31/17 21:29 Theophylline (Paresh-Dur) 100 mg EVERY 12 HOURS ORAL 03/01/17 22:00 03/22/17 21:59 03/02/17 08:56 CRISTINA BRAMBILA Mar 02, 2017 15:08
[2017-03-02 15:28] VITALS: BP 140/77
[2017-03-02 20:00] VITALS: BP 136/78
[2017-03-03] VITALS: BP 131/76
[2017-03-03] MEDS: Morphine Sulfate 2mg/ml Inj IVP PRN ×3 (02:20→10:21)
[2017-03-03 04:00] VITALS: BP 127/72
[2017-03-03] MEDS: DuoNeb 0.5-3(2.5)mg/3ml neb INH SCH (06:26)
[2017-03-03 08:07] VITALS: BP 152/82
--- NOTE | 2017-03-03 08:28 | Pulmonology Progress Note ---
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 s/p Diamox ECHO with pEF 55% and RVSP of 20 venous Dupelx BLE negative neuro follows EEG with mild slowing, but no seizures on Keppra per neuro, neuro status stable seizure precautions HIV status negative ] CT head no acute IC pathology urine tox screen + opiates DVT prophylaxis dc plan after home O2 arranged case discussed and evaluated by supervising physician Subjective Allergies: Coded Allergies: No Known Allergies (Unverified , 02/19/17) Subjective afebrile, leukocytosis trending down still on BiPAP intermittently awaiting for O2 home arrangement Objective Last 24 Hour Vital Signs Date Time Temp Pulse Resp B/P (MAP) Pulse Ox O2 Delivery O2 Flow Rate FiO2 03/03/17 08:07 98.2 104 22 152/82 96 Bi-pap 03/03/17 06:37 106 25 99 Bi-pap 40 03/03/17 06:30 109 27 99 Facial 40 03/03/17 06:27 Bi-pap 40 03/03/17 06:26 99 Bi-pap 40 03/03/17 06:24 109 27 99 Bi-pap 40 03/03/17 05:16 93 23 97 Facial 40 03/03/17 04:00 97.2 110 20 127/72 98 Bi-pap 03/03/17 02:30 115 19 96 Facial 40 03/03/17 01:30 98 25 97 Facial 40 03/03/17 00:00 97.9 114 19 131/76 95 Bi-pap 03/02/17 23:11 103 26 97 Facial 40 03/02/17 21:27 119 25 98 Facial 40 03/02/17 20:00 97.7 114 20 136/78 95 Nasal Cannula 03/02/17 19:50 119 26 98 Bi-pap 40 03/02/17 19:40 96 Bi-pap 40 03/02/17 19:40 115 28 96 Bi-pap 40 03/02/17 19:40 Bi-pap 40 03/02/17 19:40 115 28 96 Facial 40 03/02/17 17:16 114 29 97 Facial 40 03/02/17 15:28 97.9 109 21 140/77 96 Nasal Cannula 4.0 03/02/17 15:00 88 16 97 Facial 40 03/02/17 12:47 121 18 99 Nasal Cannula 4.0 03/02/17 12:37 120 18 97 Nasal Cannula 4.0 03/02/17 11:47 98.0 113 20 144/82 96 Nasal Cannula 4.0 03/02/17 10:59 87 Room Air Objective General Appearance: no acute distress, middle age morbidly obese AA female A/ A/O x 4 HEENT: normocephalic, atraumatic, anicteric Respiratory/Chest: no respiratory distress, no accessory muscle use, decreased breath sounds , BiPAP mask on (BiPAP 15-5 with FiO2 40%) Cardiovascular: normal peripheral pulses, normal rate, regular rhythm Abdomen: normal bowel sounds, soft, non tender - obese Neurologic/Psychiatric: no motor/sensory deficits, alert, oriented x 3, responsive Musculoskeletal: normal muscle bulk Current Medications Medications (Trade) Dose Ordered Sig/Selvin Route PRN Reason Start Time Stop Time Status Last Admin Dose Admin Albuterol/ Ipratropium (DuoNeb 0.5-3(2.5)mg/3ml) 3 ml TIDRT INH 03/02/17 07:00 03/03/17 12:59 03/03/17 06:26 Clonazepam (KlonoPIN) 1 mg BEDTIME ORAL 03/01/17 22:00 03/07/17 21:59 03/02/17 20:56 Clonidine HCl (Catapres) 0.1 mg Q6H PRN ORAL SBP>160 mmHg 03/01/17 21:30 03/22/17 21:29 Dextrose (Dextrose 50%) STAT PRN IV Hypoglycemia 03/01/17 21:30 03/31/17 21:29 Escitalopram Oxalate (Lexapro) 10 mg DAILY ORAL 03/02/17 09:00 03/28/17 08:59 03/02/17 08:56 Heparin Sodium (Porcine) (Heparin 5000 units/ml) 5,000 units EVERY 12 HOURS SUBQ 03/01/17 22:00 03/31/17 21:59 03/02/17 20:57 Levetiracetam (Keppra) 500 mg Q12HR ORAL 03/01/17 22:00 03/23/17 21:59 03/02/17 20:56 Morphine Sulfate (Morphine Sulfate) 2 mg Q4H PRN IVP PAIN 4-10 03/01/17 21:00 03/06/17 12:59 03/03/17 06:22 Nitroglycerin (Ntg) 0.4 mg Q5M X 3 DOSES PRN SL Prn Chest Pain 03/01/17 20:30 03/22/17 06:59 Ondansetron HCl (Zofran) 4 mg Q6H PRN IVP Nausea & Vomiting 03/01/17 21:30 03/31/17 21:29 Promethazine HCl/ Codeine (Phenergan with Codeine) 5 ml Q6H PRN ORAL cough 03/01/17 21:30 03/31/17 21:29 Theophylline (Paresh-Dur) 100 mg EVERY 12 HOURS ORAL 03/01/17 22:00 03/22/17 21:59 03/02/17 20:56 Nabeel SolizKaleida HealthAyleen Goff NP Mar 03, 2017 08:28
[2017-03-03] MEDS: Theophylline ER 100mg ORAL SCH (09:14)
[2017-03-03] MEDS: Heparin 5000 units/ml inj SUBQ SCH (09:16)
[2017-03-03 09:19] LABS: MEAN CORPUSCULAR HEMOGLOBIN 30.2 PG (27.0-31.0); MEAN CORPUSCULAR HGB CONC 29.9 G/DL (32.0-36.0); MEAN CORPUSCULAR VOLUME 101 FL (80-99); MEAN PLATELET VOLUME 7.5 FL (6.5-10.1); PLATELET COUNT 194 K/UL (150-450); RED BLOOD COUNT 3.79 M/UL (4.20-5.40); RED CELL DISTRIBUTION WIDTH 15.2 % (11.6-14.8); WHITE BLOOD COUNT 14.8 K/UL (4.8-10.8)
[2017-03-03 09:34] LABS: CALCIUM 8.8 mg/dL (8.6-10.2); CHLORIDE 98 mEQ/L (98-107); CREATININE 0.8 mg/dL (0.5-0.9); GLOMERULAR FILTRATION RATE > 60 mL/min (>60); HEMOLYSIS 6; POTASSIUM 4.6 mEQ/L (3.4-4.9); SODIUM 144 mEQ/L (135-145)
[2017-03-03] MEDS ORDERED: THEOPHYLLINE A100 MG ORAL (09:34)
[2017-03-03 09:39] LABS: ANION GAP 6 (5-15); CARBON DIOXIDE 40 mEQ/L (20-30)
[2017-03-03 10:03] LABS: ANISOCYTOSIS 1+; BAND NEUTROPHILS % (MANUAL) 0 % (0-8); BASOPHILS % (MANUAL) 0 % (0-2); EOSINOPHILS % (MANUAL) 0 % (0-3); HYPOCHROMASIA 1+; LYMPHOCYTES % (MANUAL) 17 % (20-45); MACROCYTES 1+; NEUTROPHILS % (MANUAL) 70 % (45-75); PLATELET ESTIMATE ADEQUATE; PLATELET MORPHOLOGY NORMAL; TOTAL CELLS COUNTED 100
[2017-03-03 10:04] LABS: NUCLEATED RED BLOOD CELLS 1 /100 WBC
[2017-03-03 12:01] VITALS: BP 132/76
--- NOTE | 2017-03-03 12:52 | Infectious Diseases Prog Note ---
Assessment/Plan Assessment/Plan IMPRESSION: 1. Chronic obstructive pulmonary exacerbation and possible interstitial pneumonia, with ground glass opacities on chest CT w/o nodules. This may be a chronic finding but no prior CT for comparison, and patient is not known to be significantly immunocompromised. s/p PCP DFA negative on induced sputum mycoplasma serology is negative for acute infection. 2. CHF exacerbation c/b hypercapneic respiratory failure 3. The patient has pain in the back and left lower extremity, was seen seen by Neurology. 4. History of hydrocephalus and ventriculoperitoneal shunt. 5. Hypertension. 6. Morbid obesity 7. Seizures 8. Respiratory acidosis with compensatory metabolic alkalosis, now on BIPAP 9. leukocytosis on pulse dose steroids (completed 03/01), now downtrending to 14 , ESR reassuring at 17mm/hr, repeat CRP reassuring at <0.3mg/dL 10. afebrile 11. no pyuria on U/A 11. HIV negative RECOMMENDATION: 1. completed levofloxacin 750mg PO q24hr, s/p D#10 of treatment. (03/02 s/p Levofloxacin D#10) (02/24 s/p Zosyn D#4) (02/20 s/p levofloxacin x1 dose) 2. monitor CBC 3. monitor temp curve. 4. chronic pain eval and mgmt per primary service. 5. diuresis per primary service. stable for discharge from ID standpoint once oxygenation issues resolved. Subjective Allergies: Coded Allergies: No Known Allergies (Unverified , 02/19/17) Subjective remains afebrile. patient has a keenan-positive review of symptoms, but appears comfortable. Objective Vital Signs Last 24 Hour Vital Signs Date Time Temp Pulse Resp B/P (MAP) Pulse Ox O2 Delivery O2 Flow Rate FiO2 03/03/17 12:01 98.6 103 22 132/76 96 Bi-pap 03/03/17 10:46 100 21 94 Facial 40 03/03/17 09:20 117 30 99 Facial 40 03/03/17 08:07 98.2 104 22 152/82 96 Bi-pap 03/03/17 06:37 106 25 99 Bi-pap 40 03/03/17 06:30 109 27 99 Facial 40 03/03/17 06:27 Bi-pap 40 03/03/17 06:26 99 Bi-pap 40 03/03/17 06:24 109 27 99 Bi-pap 40 03/03/17 05:16 93 23 97 Facial 40 03/03/17 04:00 97.2 110 20 127/72 98 Bi-pap 03/03/17 02:30 115 19 96 Facial 40 03/03/17 01:30 98 25 97 Facial 40 03/03/17 00:00 97.9 114 19 131/76 95 Bi-pap 03/02/17 23:11 103 26 97 Facial 40 03/02/17 21:27 119 25 98 Facial 40 03/02/17 20:00 97.7 114 20 136/78 95 Nasal Cannula 03/02/17 19:50 119 26 98 Bi-pap 40 03/02/17 19:40 96 Bi-pap 40 03/02/17 19:40 115 28 96 Bi-pap 40 03/02/17 19:40 Bi-pap 40 03/02/17 19:40 115 28 96 Facial 40 03/02/17 17:16 114 29 97 Facial 40 03/02/17 15:28 97.9 109 21 140/77 96 Nasal Cannula 4.0 03/02/17 15:00 88 16 97 Facial 40 Height (Feet): 5 Height (Inches): 6.00 Weight (Pounds): 249 Objective GENERAL APPEARANCE: obese, awake, alert, and oriented. HEAD AND NECK: Hirsutism. [employer] conjunctivae. chronic disconjugate gaze. HEART: S1 and S2, regular. LUNGS: no crackles. on supplemental NC. ABDOMEN: Obese, soft. no peritoneal signs. EXTREMITIES: Has no edema. Laboratory Tests Test 03/03/17 09:00 White Blood Count 14.8 K/UL (4.8-10.8) H Red Blood Count 3.79 M/UL (4.20-5.40) L Hemoglobin 11.5 G/DL (12.0-16.0) L Hematocrit 38.3 % (37.0-47.0) Mean Corpuscular Volume 101 FL (80-99) H Mean Corpuscular Hemoglobin 30.2 PG (27.0-31.0) Mean Corpuscular Hemoglobin Concent 29.9 G/DL (32.0-36.0) L Red Cell Distribution Width 15.2 % (11.6-14.8) H Platelet Count 194 K/UL (150-450) Mean Platelet Volume 7.5 FL (6.5-10.1) Neutrophils (%) (Auto) % (45.0-75.0) Lymphocytes (%) (Auto) % (20.0-45.0) Monocytes (%) (Auto) % (1.0-10.0) Eosinophils (%) (Auto) % (0.0-3.0) Basophils (%) (Auto) % (0.0-2.0) Differential Total Cells Counted 100 Neutrophils % (Manual) 70 % (45-75) Lymphocytes % (Manual) 17 % (20-45) L Monocytes % (Manual) 13 % (1-10) H Eosinophils % (Manual) 0 % (0-3) Basophils % (Manual) 0 % (0-2) Band Neutrophils 0 % (0-8) Nucleated Red Blood Cells 1 /100 WBC Platelet Estimate Adequate Platelet Morphology Normal Hypochromasia 1+ Basophilic Stippling Occasional Anisocytosis 1+ Macrocytosis 1+ Sodium Level 144 mEQ/L (135-145) Potassium Level 4.6 mEQ/L (3.4-4.9) Chloride Level 98 mEQ/L (98-107) Carbon Dioxide Level 40 mEQ/L (20-30) H Anion Gap 6 (5-15) Blood Urea Nitrogen 12 mg/dL (7-23) Creatinine 0.8 mg/dL (0.5-0.9) Estimat Glomerular Filtration Rate > 60 mL/min (>60) Glucose Level 166 mg/dL (74-106) H Calcium Level 8.8 mg/dL (8.6-10.2) Current Medications Medications (Trade) Dose Ordered Sig/Selvin Route PRN Reason Start Time Stop Time Status Last Admin Dose Admin Albuterol/ Ipratropium (DuoNeb 0.5-3(2.5)mg/3ml) 3 ml TIDRT INH 03/02/17 07:00 03/03/17 12:59 03/03/17 06:26 Clonazepam (KlonoPIN) 1 mg BEDTIME ORAL 03/01/17 22:00 03/07/17 21:59 03/02/17 20:56 Clonidine HCl (Catapres) 0.1 mg Q6H PRN ORAL SBP>160 mmHg 03/01/17 21:30 03/22/17 21:29 Dextrose (Dextrose 50%) STAT PRN IV Hypoglycemia 03/01/17 21:30 03/31/17 21:29 Escitalopram Oxalate (Lexapro) 10 mg DAILY ORAL 03/02/17 09:00 03/28/17 08:59 03/03/17 09:14 Heparin Sodium (Porcine) (Heparin 5000 units/ml) 5,000 units EVERY 12 HOURS SUBQ 03/01/17 22:00 03/31/17 21:59 03/03/17 09:16 Levetiracetam (Keppra) 500 mg Q12HR ORAL 03/01/17 22:00 03/23/17 21:59 03/03/17 09:14 Morphine Sulfate (Morphine Sulfate) 2 mg Q4H PRN IVP PAIN 4-10 03/01/17 21:00 03/06/17 12:59 03/03/17 10:21 Nitroglycerin (Ntg) 0.4 mg Q5M X 3 DOSES PRN SL Prn Chest Pain 03/01/17 20:30 03/22/17 06:59 Ondansetron HCl (Zofran) 4 mg Q6H PRN IVP Nausea & Vomiting 03/01/17 21:30 03/31/17 21:29 Promethazine HCl/ Codeine (Phenergan with Codeine) 5 ml Q6H PRN ORAL cough 03/01/17 21:30 03/31/17 21:29 Theophylline (Paresh-Dur) 100 mg EVERY 12 HOURS ORAL 03/01/17 22:00 03/22/17 21:59 03/03/17 09:14 Sebastien Sol M.D. Mar 03, 2017 12:52
--- NOTE | 2017-03-03 13:59 | General Progress Note ---
Assessment/Plan Status: doing well, stable, progressing Assessment/Plan Less anxious MDD -cont current treatment Subjective Constitutional: Reports: malaise, weakness Neurologic/Psychiatric: Reports: anxiety, depressed, emotional problems Allergies: Coded Allergies: No Known Allergies (Unverified , 02/19/17) Objective Last 24 Hour Vital Signs Date Time Temp Pulse Resp B/P (MAP) Pulse Ox O2 Delivery O2 Flow Rate FiO2 03/03/17 12:01 98.6 103 22 132/76 96 Bi-pap 03/03/17 10:46 100 21 94 Facial 40 03/03/17 09:20 117 30 99 Facial 40 03/03/17 08:07 98.2 104 22 152/82 96 Bi-pap 03/03/17 06:37 106 25 99 Bi-pap 40 03/03/17 06:30 109 27 99 Facial 40 03/03/17 06:27 Bi-pap 40 03/03/17 06:26 99 Bi-pap 40 03/03/17 06:24 109 27 99 Bi-pap 40 03/03/17 05:16 93 23 97 Facial 40 03/03/17 04:00 97.2 110 20 127/72 98 Bi-pap 03/03/17 02:30 115 19 96 Facial 40 03/03/17 01:30 98 25 97 Facial 40 03/03/17 00:00 97.9 114 19 131/76 95 Bi-pap 03/02/17 23:11 103 26 97 Facial 40 03/02/17 21:27 119 25 98 Facial 40 03/02/17 20:00 97.7 114 20 136/78 95 Nasal Cannula 03/02/17 19:50 119 26 98 Bi-pap 40 03/02/17 19:40 96 Bi-pap 40 03/02/17 19:40 115 28 96 Bi-pap 40 03/02/17 19:40 Bi-pap 40 03/02/17 19:40 115 28 96 Facial 40 03/02/17 17:16 114 29 97 Facial 40 03/02/17 15:28 97.9 109 21 140/77 96 Nasal Cannula 4.0 03/02/17 15:00 88 16 97 Facial 40 Intake and Output 03/03/17 03/04/17 19:00 07:00 Intake Total 120 ml Balance 120 ml Intake Oral 120 ml Laboratory Tests 03/03/17 09:00: White Blood Count 14.8H, Red Blood Count 3.79L, Hemoglobin 11.5L, Hematocrit 38.3, Mean Corpuscular Volume 101H, Mean Corpuscular Hemoglobin 30.2, Mean Corpuscular Hemoglobin Concent 29.9L, Red Cell Distribution Width 15.2H, Platelet Count 194, Mean Platelet Volume 7.5, Neutrophils (%) (Auto) , Lymphocytes (%) (Auto) , Monocytes (%) (Auto) , Eosinophils (%) (Auto) , Basophils (%) (Auto) , Differential Total Cells Counted 100, Neutrophils % ( Manual) 70, Lymphocytes % (Manual) 17L, Monocytes % (Manual) 13H, Eosinophils % (Manual) 0, Basophils % (Manual) 0, Band Neutrophils 0, Nucleated Red Blood Cells 1, Platelet Estimate Adequate, Platelet Morphology Normal, Hypochromasia 1 +, Basophilic Stippling Occasional, Anisocytosis 1+, Macrocytosis 1+, Sodium Level 144, Potassium Level 4.6, Chloride Level 98, Carbon Dioxide Level 40H, Anion Gap 6, Blood Urea Nitrogen 12, Creatinine 0.8, Estimat Glomerular Filtration Rate > 60, Glucose Level 166H, Calcium Level 8.8 Height (Feet): 5 Height (Inches): 6.00 Weight (Pounds): 249 General Appearance: alert, mild distress, overweight Neurologic: alert, oriented x 3, responsive, depressed affect Cory Mcbride M.D. Mar 03, 2017 13:59
[2017-03-06] MEDS ORDERED: LEXAPRO10 MG ORAL (14:28)
--- NOTE | 2017-03-06 14:29 | Discharge Summary ---
Discharge Summary Hospital Course Date of Admission Feb 20, 2017 at 00:56 Date of Discharge Mar 03, 2017 at 14:30 Admitting Diagnosis COPD exacerbation HPI Moiz Haas is a 32 year old female who was admitted on Feb 20, 2017 at 00: 56 for Chronic Obstructive Pulmonary Disease Exacerbation Hospital Course dc summary #[id number] Discharge Medications New Medications: Albuterol Sulfate* (Proair Hfa*) 8.5 Gm Hfa.aer.ad 1 PUFF INH Q6H, #8.5 GM 0 Refills Escitalopram Oxalate* (Lexapro*) 10 Mg Tablet 10 MG ORAL DAILY, #30 TAB Levetiracetam (Levetiracetam) 500 Mg Tablet 500 MG ORAL Q12HR, #60 TAB Theophylline (Theodur*) 100 Mg Tab.er.12h 100 MG ORAL EVERY 12 HOURS, #20 TAB Discharge Condition Upon Discharge: stable Discharge Disposition Patient was discharged to Home with Home Health(06) Discharge Diagnoses: Nabeel (Ely)Ayleen NP Mar 06, 2017 14:29
--- NOTE | 2017-03-07 10:01 | Discharge Summary 2 SIG ---
DATE OF ADMISSION: 02/20/2017 DATE OF DISCHARGE: 03/03/2017 The patient was admitted under Dr. Hull. REASON FOR ADMISSION: This is a 32-year-old female with a history of childhood seizure, [employer] shunt, COPD, morbid obesity, and hypertension, who presented to emergency room with shortness of breath for the last two weeks. Denies fever and chills. Shortness of breath worse with movement. No chest pain. The patient has no oxygen at home. Chest x-ray done in the emergency department revealed a faint hazy parenchymal opacity bilaterally. Heart in upper limits of normal in size. No dense consolidation. No pleural effusion. Subsequently, CT of the chest was done, which revealed mosaic ground-glass opacity in both lungs. Broad differential include infection, edema, interstitial disease, and post inflammatory changes. There was no previous CT for comparison, so the findings were acute versus chronic. The patient had no fever, was slightly tachycardic. Blood pressure was elevated at 183/116. The patient was admitted for further management. ADMITTING DIAGNOSES: 1. Chronic obstructive pulmonary disease exacerbation. 2. Possible aspiration pneumonia. 3. Hypertensive urgency. 4. Morbid obesity. HOSPITAL COURSE: The patient was admitted. The patient was started on supplemental oxygen to keep saturation above 92% along with the pulmonary toilet. The patient was started on empiric antibiotics. The patient was pancultured. Neurology consult was requested. ID consult was requested. Neurologist seen and evaluated the patient for a single episode of seizure. The patient has a history of seizure disorder in childhood and DEL[employer] shunt. EEG revealed mild slowing. The patient was started on Keppra. Neurology cleared the patient for discharge. ID, the patient completed 10 days of Levaquin 750 mg. He recommended to monitor the patient off antibiotics. Induced sputum was negative for PCP and DFA. Mycoplasma serology negative for acute infection. Urine tox screen was positive for opiates. CT of the head was negative for acute intracranial pathology. HIV test was negative. The patient was kept on seizure precaution. No further seizure while in the hospital. DVT prophylaxis provided. The patient was on the steroids with tapering down, theophylline, and antitussive provided as needed. The patient was followed up with ABG and found to have increasing CO2 retention/hypercapnia. The patient was started on . Discharge planning was in order for the patient to be discharged on 02/26/2017, however, the patient has no oxygen at home. She had O2 saturation on the room air to determine the need and it was 77%. ABG reveals severe hypoxemia and hypercapnia. The patient was placed on BiPAP and transferred to telemetry. Discharge was canceled. The patient subsequently undergone venous Duplex of bilateral lower extremity, which was negative. Echocardiogram was done, which revealed preserved ejection fraction of 55% and right ventricular systolic pressure of 20. Mild left ventricular hypertrophy and no aortic regurgitation. Sputum culture negative. The patient completed course of antibiotics. The patient was followed up with x-ray. Chest x-ray on 02/27/2017 still revealed patchy perihilar infiltrate. The patient received one dose of diuretics. Psychiatrist seen the patient, diagnosed her with major depressive disorder, and started the patient on Lexapro. DVT prophylaxis provided. Pain management provided. Blood pressure stabilized. Clonidine was given on an as-needed basis. Home oxygen delivery was arranged. The patient was able to wean down to face mask. The patient was stable for discharge home after confirmed oxygen delivery. Follow up with the primary medical doctor. FINAL DIAGNOSES: 1. Acute hypoxemic hypercapnic respiratory failure, requiring BiPAP. 2. Chronic obstructive pulmonary disease exacerbation. Of note, the patient was on the IV steroids, which were gradually tapered and discontinued. 3. Interstitial versus aspiration pneumonia. 4. Persistent hypercapnia. 5. Seizure episode. 6. History of childhood seizure. 7. Ventriculoperitoneal shunt status secondary to hydrocephalus. 8. Morbid obesity. 9. Probable obstructive sleep apnea. 10. Major depressive disorder. 11. Morbid obesity. 12. Hypertension. DISCHARGE MEDICATIONS: See medication reconciliation list. DISCHARGE INSTRUCTIONS: The patient is discharged home. Home oxygen delivery arranged. Follow up with primary medical doctor. Jennifer Hull M.D. I have been assigned to dictate discharge summary on this account and I was not involved in the patient's management. Ayleen Solizjewish memorial hospitalShell N.PNazario DR: Stefan JOB#: [id number] CC:
== END 2017-03-03 14:30 | disposition home or self-care (01) | DRG 140 ==
LOC: EDBD 22:03 → EMR 22:20 → 4W 02-20 00:56 → EDBEDREQ 02-20 01:27 → 3E 02-25 17:32 → 2E 02-26 12:17 → 2W 02-27 11:43 → 4E 03-01 21:32
PROC: 5A09457 Assistance with Respiratory Ventilation, 24-96 Consecutive Hours, Continuous Positive Airway Pressure (ICD-10-PCS; principal; 2017-02-27)
DX: J44.1 Chronic obstructive pulmonary disease with (acute) exacerbation (principal); J96.01 Acute respiratory failure with hypoxia; J69.0 Pneumonitis due to inhalation of food and vomit; J96.02 Acute respiratory failure with hypercapnia; J84.9 Interstitial pulmonary disease, unspecified; G91.1 Obstructive hydrocephalus; Z68.41 Body mass index [BMI] 40.0-44.9, adult; E66.01 Morbid (severe) obesity due to excess calories; Z98.2 Presence of cerebrospinal fluid drainage device; G40.909 Epilepsy, unspecified, not intractable, without status epilepticus; I16.0 Hypertensive urgency; G47.33 Obstructive sleep apnea (adult) (pediatric); F32.9 Major depressive disorder, single episode, unspecified; G80.8 Other cerebral palsy; Z87.891 Personal history of nicotine dependence; M54.5 Low back pain; M79.605 Pain in left leg
CPT/HCPCS: 36415; 36600; 70450; 71010; 71250; 72131; 80048; 80053; 80061; 80299; 80300; 81003; 82550; 82553; 82607; 82803; 83735; 83880; 84100; 84484; 85007; 85025; 85610; 85651; 85730; 86140; 86703; 86738; 87070; 87205; 93005; 93306; 93970; 93971; 94640; 94660; 94664; 94760; 95819; 96374; 96375; J2405; J7620; J8499

== ENCOUNTER 2017-03-20 19:29 | Emergency (ER) | payer MEDICAID ==
[~2017-03-20] VITALS: Ht 154.9 cm; Wt 136.1 kg
[~2017-03-20 19:29] MED LIST: KEPPRA500 M3 ORAL; LEXAPRO10 MG ORAL; PROAIR HFA8.5 GM INH; THEOPHYLLINE A100 MG ORAL
[2017-03-20] MEDS ORDERED: Albuterol ud Inhalation HHN ONE (21:00)
[2017-03-20 21:17] LABS: APPEARANCE,URINE CLEAR; KETONES,URINE 1+ (NEGATIVE); LEUKOCYTE ESTERASE ,URINE 2+ (NEGATIVE); NITRITE,URINE NEGATIVE (NEGATIVE); PH,URINE 6 (4.5-8.0); PROTEIN,URINE 3+ (NEGATIVE); UROBILINOGEN,URINE 1 MG/DL (0.0-1.0)
[2017-03-20 21:29] LABS: BACTERIA,URINE FEW /HPF; RBC,URINE 0-2 /HPF (0 - 2); SQUAMOUS EPITHELIAL CELL,UR FEW /LPF (NONE/OCC)
[2017-03-20 21:51] LABS: EOSINOPHILS % (AUTO) 2.1 % (0.0-3.0); MEAN CORPUSCULAR HEMOGLOBIN 32.5 PG (27.0-31.0); MEAN CORPUSCULAR HGB CONC 32.5 G/DL (32.0-36.0); MEAN CORPUSCULAR VOLUME 100 FL (80-99); MEAN PLATELET VOLUME 8.4 FL (6.5-10.1); MONOCYTES % (AUTO) 6.3 % (1.0-10.0); NEUTROPHILS % (AUTO) 70.6 % (45.0-75.0); PLATELET COUNT 161 K/UL (150-450); RED BLOOD COUNT 3.64 M/UL (4.20-5.40); RED CELL DISTRIBUTION WIDTH 14.2 % (11.6-14.8); WHITE BLOOD COUNT 7.9 K/UL (4.8-10.8)
[2017-03-20 22:08] LABS: ALANINE AMINOTRANSFERASE 7 U/L (3-33); ALBUMIN/GLOBULIN RATIO 1.4 (1.0-2.7); ANION GAP 6 (5-15); ASPARTATE AMINO TRANSFERASE 11 U/L (5-40); CALCIUM 8.5 mg/dL (8.6-10.2); CARBON DIOXIDE 37 mEQ/L (20-30); CHLORIDE 96 mEQ/L (98-107); CREATININE 0.7 mg/dL (0.5-0.9); GLOMERULAR FILTRATION RATE > 60 mL/min (>60); HEMOLYSIS 1; LIPASE 24 U/L (< 60); POTASSIUM 3.8 mEQ/L (3.4-4.9); SODIUM 139 mEQ/L (135-145); TOTAL PROTEIN 6.4 g/dL (6.6-8.7)
[2017-03-20] MEDS ORDERED: Acetaminophen 500mg (ES) tab ORAL ONE (23:30)
[2017-03-20] MEDS ORDERED: Ketorolac 30mg Inj IV ONE (23:30)
--- NOTE | 2017-03-20 23:30 | Emergency Room Report ---
History of Present Illness General Chief Complaint: Abdominal Pain Source: Patient Present Illness HPI This patient complains of diffuse abdominal pain for the past week. She states the pain is severe. She states that she is also had left leg pain. She denies trauma or injury. She denies vomiting. She has had nausea. She denies fever or chills. She denies dysuria or hematuria. She denies chest pain or shortness of breath. She has no other complaints. Allergies: Coded Allergies: No Known Allergies (Unverified , 02/19/17) Patient History Past Medical History: see triage record, HTN, asthma Social History: Denies: smoking, alcohol use, drug use Last Menstrual Period: UNK Reviewed Nursing Documentation: PMH: Agreed, PSxH: Agreed Nursing Documentation-PMH Hx Hypertension: Yes Hx Asthma: Yes Hx COPD: Yes Hx Cancer: No Hx Gastrointestinal Problems: No Hx Seizures: Yes Review of Systems All Other Systems: negative except mentioned in HPI Physical Exam Vital Signs Date Time Temp Pulse Resp B/P (MAP) Pulse Ox O2 Delivery O2 Flow Rate FiO2 03/20/17 19:24 99.0 106 18 148/94 99 Nasal Cannula 2.0 03/20/17 21:36 28 Sp02 EP Interpretation: reviewed, normal General Appearance: no apparent distress, alert, GCS 15, non-toxic, obese Head: normocephalic, atraumatic Eyes: bilateral eye normal inspection, bilateral eye PERRL ENT: hearing grossly normal, normal pharynx, no angioedema, normal voice Neck: full range of motion, supple/symm/no masses Respiratory: chest non-tender, lungs clear, normal breath sounds, speaking full sentences Cardiovascular #1: regular rate, rhythm, no edema Gastrointestinal: normal bowel sounds, soft, non-distended, no guarding, no rebound, tenderness - diffusely ttp. Rectal: deferred Musculoskeletal: back normal, gait/station normal, normal range of motion, non- tender Neurologic: alert, oriented x3, responsive, motor strength/tone normal, sensory intact, speech normal Psychiatric: judgement/insight normal, memory normal, mood/affect normal, no suicidal/homicidal ideation Skin: normal color, no rash, warm/dry, well hydrated Medical Decision Making Diagnostic Impression: Primary Impression: Abdominal pain Additional Impressions: Leg pain Sciatica Ovarian cyst Fibroid ER Course This patient presents with diffuse abdominal pain. Overall, the patient's evaluation and abdomen is nonsurgical. Patient is also complaining of left leg pain. I suspect this is sciatica. However, I did obtain an ultrasound of the left lower extremity which showed no evidence of DVT. The patient had stated that her legs were swollen. She does have some trace edema there. Laboratory workup to include CBC, CMP and urinalysis were unremarkable. CT of the abdomen and pelvis showed no acute findings. She does have ovarian cysts. She also has a fibroid. Otherwise, there is no acute findings. The patient does have constipation. I will place the patient on gabapentin for sciatica and a bowel regimen. She is instructed to followup with her primary care physician. No emergency medical condition was identified. Laboratory Tests Test 03/20/17 19:57 03/20/17 21:30 Urine Color Yellow Urine Appearance Clear Urine pH 6 (4.5-8.0) Urine Specific [place] 1.015 (1.005-1.035) Urine Protein 3+ (NEGATIVE) H Urine Glucose (UA) Negative (NEGATIVE) Urine Ketones 1+ (NEGATIVE) H Urine Occult Blood Negative (NEGATIVE) Urine Nitrite Negative (NEGATIVE) Urine Bilirubin Negative (NEGATIVE) Urine Urobilinogen 1 MG/DL (0.0-1.0) H Urine Leukocyte Esterase 2+ (NEGATIVE) H Urine RBC 0-2 /HPF (0 - 2) Urine WBC 2-4 /HPF (0 - 2) Urine Squamous Epithelial Cells Few /LPF (NONE/OCC) Urine Bacteria Few /HPF (NONE) Urine HCG, Qualitative Negative White Blood Count 7.9 K/UL (4.8-10.8) Red Blood Count 3.64 M/UL (4.20-5.40) L Hemoglobin 11.8 G/DL (12.0-16.0) L Hematocrit 36.4 % (37.0-47.0) L Mean Corpuscular Volume 100 FL (80-99) H Mean Corpuscular Hemoglobin 32.5 PG (27.0-31.0) H Mean Corpuscular Hemoglobin Concent 32.5 G/DL (32.0-36.0) Red Cell Distribution Width 14.2 % (11.6-14.8) Platelet Count 161 K/UL (150-450) Mean Platelet Volume 8.4 FL (6.5-10.1) Neutrophils (%) (Auto) 70.6 % (45.0-75.0) Lymphocytes (%) (Auto) 20.0 % (20.0-45.0) Monocytes (%) (Auto) 6.3 % (1.0-10.0) Eosinophils (%) (Auto) 2.1 % (0.0-3.0) Basophils (%) (Auto) 1.0 % (0.0-2.0) Sodium Level 139 mEQ/L (135-145) Potassium Level 3.8 mEQ/L (3.4-4.9) Chloride Level 96 mEQ/L (98-107) L Carbon Dioxide Level 37 mEQ/L (20-30) H Anion Gap 6 (5-15) Blood Urea Nitrogen 8 mg/dL (7-23) Creatinine 0.7 mg/dL (0.5-0.9) Estimate Glomerular Filtration Rate > 60 mL/min (>60) Glucose Level 92 mg/dL (74-106) Calcium Level 8.5 mg/dL (8.6-10.2) L Total Bilirubin < 0.2 mg/dL (0.0-1.2) Aspartate Amino Transferase (AST) 11 U/L (5-40) Alanine Aminotransferase (ALT) 7 U/L (3-33) Alkaline Phosphatase 44 U/L (35-104) Total Protein 6.4 g/dL (6.6-8.7) L Albumin 3.8 g/dL (3.5-5.2) Globulin 2.6 g/dL Albumin/Globulin Ratio 1.4 (1.0-2.7) Lipase 24 U/L (< 60) EKG Diagnostic Results Rate: normal Rhythm: NSR ST Segments: no acute changes Rhythm Strip Diag. Results EP Interpretation: yes Rate: 80's Rhythm: NSR, no PVC's, no ectopy CT/MRI/US Diagnostic Results CT/MRI/US Diagnostic Results : Imaging Test Ordered: LLE US. Impression No dVT CT abdomen and pelvis. Constipation. At adnexal cyst. Fibroid. Last Vital Signs Date Time Temp Pulse Resp B/P (MAP) Pulse Ox O2 Delivery O2 Flow Rate FiO2 03/20/17 21:38 87 20 Nasal Cannula 2.0 28 03/20/17 21:37 100 03/20/17 19:24 99.0 148/94 Disposition: HOME, SELF-CARE Condition: Improved Patient Instructions: Abdominal Pain, Adult Additional Instructions: Please follow-up closely with your primary care physician. BRIDGET GARCIA D.O. Mar 20, 2017 23:30
[2017-03-20] MEDS ORDERED: GABAPENTIN100 MG ORAL (23:49)
[2017-03-20] MEDS ORDERED: LIDODERM700 M1 TOPIC (23:49)
[2017-03-20] MEDS ORDERED: MIRALAX17 G2 ORAL (23:49)
[2017-03-20] MEDS ORDERED: COLACE100 MG ORAL (23:49)
[2017-03-20 23:51] VITALS: BP 135/89
[2017-03-21 00:30] VITALS: BP 135/89
--- NOTE | 2017-03-21 09:25 | Diagnostic Imaging Report ---
Indication: Abdominal pain Technique: Continuous helical transaxial imaging of the abdomen and pelvis was obtained from the lung bases to the pubic symphysis. No intravenous contrast was administered. Coronal 2-D reformats were also obtained. Total Dose length Product (DLP): [address] Dose Index Volume (CTDIvol): 20 mGy Comparison: none Findings: Mild groundglass opacification at the lung bases demonstrated as well as some linear coarse atelectasis. Punctate calcification likely a nonobstructive stone noted in the left kidney. Gallbladder is unremarkable. There is no hydronephrosis. There is a catheter in the left lower quadrant abdomen. This appears to be a distal end of a ventriculoperitoneal shunt. Solid organs not available evaluated well on this examination. The appendix is normal. There is a cystic mass in the left adnexa probably ovarian in nature. A single surgical clip noted at the posterior margin of the cyst which measures about 5 cm. Uterus is noted. Urinary bladder is unremarkable. There is no free fluid or free air or evidence of bowel obstruction. Impression: Suspected tiny nonobstructive stone in the left kidney. 5 cm cystic mass in the left adnexa. Evaluation with ultrasound may be of benefit. Normal appendix Diverticulosis of the colon Ventriculoperitoneal shunt noted. Basilar groundglass opacification nonspecific in nature. Mild basilar atelectasis also noted. Limited evaluation due to body habitus and lack of intravenous and oral contrast [facility] has communicated the preliminary results to the Emergency Department. Their findings are largely concordant with this report. The CT scanner at [facility] is accredited by the [employer] and the scans are performed using dose optimization techniques as appropriate to a performed exam including Automatic Exposure control.
--- NOTE | 2017-03-21 17:55 | Cardiology Report ---
APPROVED REPORT EKG Measurement Heart [id number] Normal sinus rhythm Normal ECG
== END 2017-03-21 00:30 | disposition home or self-care (01) ==
LOC: EDBD 19:29 → EMR 19:50
DX: R10.9 Unspecified abdominal pain (principal); M79.605 Pain in left leg; M54.30 Sciatica, unspecified side; N83.209 Unspecified ovarian cyst, unspecified side; K57.90 Diverticulosis of intestine, part unspecified, without perforation or abscess without bleeding; N20.0 Calculus of kidney; D21.9 Benign neoplasm of connective and other soft tissue, unspecified; E66.9 Obesity, unspecified; Z68.43 Body mass index [BMI] 50.0-59.9, adult; I10 Essential (primary) hypertension; J44.9 Chronic obstructive pulmonary disease, unspecified; R60.0 Localized edema
CPT/HCPCS: 36415; 74176; 80053; 81003; 81025; 83690; 85025; 93005; 93971; 94640; 94664; 96374; 99284; J1885

== ENCOUNTER 2017-03-21 02:41 | Emergency (ER) | payer MEDICAID ==
[~2017-03-21] VITALS: Ht 157.5 cm; Wt 81.6 kg
[~2017-03-21 02:41] MED LIST changes: +COLACE100 MG ORAL; +GABAPENTIN100 MG ORAL; +LIDODERM700 M1 TOPIC; +MIRALAX17 G2 ORAL
--- NOTE | 2017-03-21 03:25 | Emergency Room Report ---
History of Present Illness General Chief Complaint: General Complaint Source: Patient Present Illness HPI Is a 32-year-old female history of COPD and obesity. She was here earlier complaining abdominal pain and workup was unremarkable. CT scan show constipation. Patient was waiting in the waiting room for a taxi but he never can. She said it checked back in saying that she was vomiting and felt short of breath. Patient never threw up outside. She is walking around without any difficulty. Allergies: Coded Allergies: No Known Allergies (Unverified , 02/19/17) Patient History Past Medical History: see triage record, old chart reviewed Pertinent Family History: none Social History: Denies: drug use Now: No Immunizations: other Reviewed Nursing Documentation: PMH: Agreed, PSxH: Agreed Nursing Documentation-PMH Hx Hypertension: Yes Hx Asthma: Yes Hx COPD: Yes Hx Cancer: No Hx Gastrointestinal Problems: No Hx Seizures: Yes Review of Systems Eye: Denies: eye pain, blurred vision ENT: Denies: ear pain, nose congestion, throat swelling Respiratory: Reports: shortness of breath, Denies: cough Cardiovascular: Denies: chest pain, palpitations Gastrointestinal: Denies: abdominal pain, diarrhea, nausea, vomiting Musculoskeletal: Denies: back pain, joint pain Skin: Denies: rash Neurological: Denies: headache, numbness Endocrine: Denies: increased thirst, increased urine Hematologic/Lymphatic: Denies: easy bruising All Other Systems: negative except mentioned in HPI Physical Exam Vital Signs Date Time Temp Pulse Resp B/P (MAP) Pulse Ox O2 Delivery O2 Flow Rate FiO2 03/21/17 02:54 99.0 95 20 125/88 96 Room Air vitals normal Sp02 EP Interpretation: reviewed, normal General Appearance: well appearing, no apparent distress, alert Head: normocephalic, atraumatic Eyes: bilateral eye PERRL, bilateral eye EOMI ENT: hearing grossly normal, normal pharynx Neck: full range of motion, supple, no meningismus Respiratory: chest non-tender, lungs clear, normal breath sounds Cardiovascular #1: regular rate, rhythm, no murmur Gastrointestinal: normal bowel sounds, non tender, no mass, no organomegaly, no bruit, non-distended Musculoskeletal: back normal, gait/station normal, normal range of motion Psychiatric: mood/affect normal Skin: warm/dry Medical Decision Making Diagnostic Impression: Primary Impression: COPD exacerbation ER Course Patient is stable. She claimed that she been vomiting but there is no vomiting here. Patient is in no respiratory distress. No evidence of acute abdomen. We 'll discharge home. Last Vital Signs Date Time Temp Pulse Resp B/P (MAP) Pulse Ox O2 Delivery O2 Flow Rate FiO2 03/21/17 02:54 99.0 95 20 125/88 96 Room Air Status: improved Disposition: HOME, SELF-CARE Condition: Stable Additional Instructions: Followup with your Dr. in 7 days. Return if symptom worsen. RON JAMISON M.D. Mar 21, 2017 03:25
[2017-03-21] MEDS ORDERED: Albuterol ud Inhalation HHN ONE (03:30)
[2017-03-21 04:15] VITALS: BP 125/88
== END 2017-03-21 04:22 | disposition home or self-care (01) ==
LOC: EMR 02:50
DX: J44.1 Chronic obstructive pulmonary disease with (acute) exacerbation (principal); E66.9 Obesity, unspecified; Z68.32 Body mass index [BMI] 32.0-32.9, adult; K59.00 Constipation, unspecified; I10 Essential (primary) hypertension
CPT/HCPCS: 94640; 94664; 99283

== ENCOUNTER 2017-05-01 15:04 | Emergency (ER) | payer MEDICAID ==
[~2017-05-01] VITALS: Ht 162.6 cm; Wt 108.9 kg
[2017-05-01 15:10] VITALS: BP 160/96
--- NOTE | 2017-05-01 15:45 | Emergency Room Report ---
History of Present Illness General Chief Complaint: Pain Source: Patient, EMS Present Illness HPI 32YOF BIBEMS for "shaking." States "I had a seizure at 9am" and "I'm having one now" which patient states while talking to me. 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 Was started on Keppra. Patient states not taking Was also seen by psychiatrist, dx with depression, started on lexapro has known HTN. States "no one gave me anything." Per EMR, was given Clonidine PRN Patient called EMS for "blurry vision in right eye." Also since this morning. Denies history of DM. Denies headache, fever/chills, neck pain/stiffness. Has history of COPD - denies chest pain, SOB, fever/chills, cough Is on home O2. Allergies: Coded Allergies: No Known Allergies (Unverified , 02/19/17) Patient History Past Medical History: HTN, COPD, other - See HPI Past Surgical History: other - SUSTAINABILITY EXECUTIVE DIRECTOR shunt Pertinent Family History: none Social History: Denies: smoking, alcohol use, drug use Last Menstrual Period: 2 weeks Now: No Immunizations: UTD Reviewed Nursing Documentation: PMH: Agreed, PSxH: Agreed Nursing Documentation-PMH Past Medical History: No History, Except For Hx Hypertension: Yes Hx Asthma: Yes Hx COPD: Yes Hx Cancer: No Hx Gastrointestinal Problems: No Hx Seizures: Yes Review of Systems All Other Systems: negative except mentioned in HPI Physical Exam Vital Signs Date Time Temp Pulse Resp B/P (MAP) Pulse Ox O2 Delivery O2 Flow Rate FiO2 05/01/17 14:59 98.2 99 20 173/106 95 Nasal Cannula 3.0 Sp02 EP Interpretation: reviewed, normal General Appearance: normal inspection, well appearing, no apparent distress, alert, GCS 15, non-toxic, obese, other - Histrionic, having pseudoseizures, crying/tearful Head: normocephalic, atraumatic Eyes: bilateral eye PERRL, bilateral eye EOMI ENT: normal ENT inspection, hearing grossly normal, normal voice Neck: normal inspection, full range of motion, supple, no bony tend Respiratory: normal inspection, lungs clear, normal breath sounds, no respiratory distress, no retraction, no wheezing Cardiovascular #1: regular rate, rhythm, no edema Gastrointestinal: normal inspection, normal bowel sounds, non tender, soft, no guarding, no hernia Genitourinary: no CVA tenderness Musculoskeletal: normal inspection, back normal, normal range of motion, Norma' s Sign negative Neurologic: normal inspection, alert, oriented x3, responsive, risk adjustment specialist III-XII nml as tested, speech normal Psychiatric: normal inspection, judgement/insight normal, mood/affect normal Skin: normal inspection, normal color, no rash Lymphatic: normal inspection Medical Decision Making Diagnostic Impression: Primary Impression: h/o seizure disorder in childhood Additional Impressions: Seizure disorder HTN (hypertension) Qualified Codes: I10 - Essential (primary) hypertension COPD (chronic obstructive pulmonary disease) Qualified Codes: J44.9 - Chronic obstructive pulmonary disease, unspecified ER Course ?Seizure disorder Patient having pseudoseizure in ED ?documented history of seizure on EEG Given PO Keppra in ED and refilled Rx for Keppa. Looks like questionable Neuro f/up and compliance on medication History of COPD but not hypoxic. No SOB/chest pain. Doubt COPD exac or PNA Also poor followup, no PMD following and NOT on HTN meds. Will start on Norvasc 5mg DC home Last Vital Signs Date Time Temp Pulse Resp B/P (MAP) Pulse Ox O2 Delivery O2 Flow Rate FiO2 05/01/17 14:59 98.2 99 20 173/106 95 Nasal Cannula 3.0 Status: improved Disposition: HOME, SELF-CARE Scripts Levetiracetam (KEPPRA) 500 Mg Tablet 500 MG ORAL EVERY 12 HOURS for 30 Days, #60 TAB 0 Refills Prov: BEVERLY YOON M.D. 05/01/17 Amlodipine Besylate (Norvasc) 5 Mg Tablet 5 MG ORAL DAILY for 30 Days, #30 TAB Prov: BEVERLY YOON M.D. 05/01/17 BEVERLY YOON M.D. May 01, 2017 15:45
[2017-05-01] MEDS ORDERED: KEPPRA500 M4 ORAL (15:54)
[2017-05-01] MEDS ORDERED: NORVASC5 MG ORAL (15:54)
[2017-05-01 16:32] VITALS: BP 165/89
== END 2017-05-01 20:49 | disposition home or self-care (01) ==
LOC: EDBD 15:04 → EMR 17:30
DX: G40.909 Epilepsy, unspecified, not intractable, without status epilepticus (principal); I10 Essential (primary) hypertension; J44.9 Chronic obstructive pulmonary disease, unspecified
CPT/HCPCS: 80299; 99284

== ENCOUNTER 2017-07-09 17:47 | Inpatient (IN) | payer MEDICAID ==
[~2017-07-09] VITALS: Ht 162.8 cm; Wt 113.4 kg
[~2017-07-09 17:47] MED LIST changes: +KEPPRA500 M4 ORAL; +NORVASC5 MG ORAL
[2017-07-09] MEDS ORDERED: Terbutaline 1mg/ml Inj SUBQ ONE (18:00)
[2017-07-09] MEDS ORDERED: Solu-MEDROL 125mg Inj IVP ONE (18:00)
[2017-07-09] MEDS: Ipratropium 0.02% Inh Soln 2.5ml UD HHN SCH ×3 (18:05→18:23)
[2017-07-09] MEDS: Albuterol ud Inhalation HHN SCH ×3 (18:05→18:23)
[2017-07-09 19:04] LABS: BLOOD UREA NITROGEN 16 mg/dL (7-18); CHLORIDE 89 MMOL/L (98-107); CREATININE 0.9 MG/DL (0.55-1.30); POTASSIUM 4.4 MMOL/L (3.5-5.1); SODIUM 137 MMOL/L (136-145)
[2017-07-09 19:15] LABS: HEMATOCRIT 35.5 % (37.0-47.0); HEMOGLOBIN 10.6 G/DL (12.0-16.0); MEAN CORPUSCULAR VOLUME 99 FL (80-99); PLATELET COUNT 222 K/UL (150-450); RED BLOOD COUNT 3.57 M/UL (4.20-5.40); RED CELL DISTRIBUTION WIDTH 14.1 % (11.6-14.8); WHITE BLOOD COUNT 20.3 K/UL (4.8-10.8)
[2017-07-09 19:17] LABS: ALANINE AMINOTRANSFERASE 32 U/L (12-78); ALBUMIN 3.2 G/DL (3.4-5.0); ALBUMIN/GLOBULIN RATIO 0.7 (1.0-2.7); ALKALINE PHOSPHATASE 58 U/L (46-116); ASPARTATE AMINO TRANSFERASE 35 U/L (15-37); BILIRUBIN,TOTAL 0.3 MG/DL (0.2-1.0); CKMB 7.2 NG/ML (0.0-3.6); CREATINE KINASE 485 U/L (26-308)
[2017-07-09 19:20] LABS: CARBON DIOXIDE > 45 MMOL/L (21-32)
[2017-07-09 20:32] VITALS: BP 170/91
[2017-07-09] MEDS ORDERED: Tylenol #3 tab (300mg/30mg) ORAL ONE (21:15)
--- NOTE | 2017-07-09 21:33 | Emergency Room Report ---
History of Present Illness General Chief Complaint: Dyspnea/Respdistress Source: Patient Present Illness HPI 32YOF with acute worsening of cough and asthma exacerbation in last day Per EMS patient had decreased breath sounds, wheezing on seen. Was given albuterol with improvement Patient endorses history of asthma denies previous intubation History of present illness otherwise limited due to acute shortness of breath Her patient denies chest pain, fever or chills, Allergies: Coded Allergies: No Known Allergies (Unverified , 02/19/17) Patient History Past Medical History: asthma Past Surgical History: none Pertinent Family History: none Social History: Denies: smoking, alcohol use, drug use Last Menstrual Period: unk Now: No Reviewed Nursing Documentation: PMH: Agreed, PSxH: Agreed Nursing Documentation-PMH Past Medical History: No History, Except For Hx Hypertension: Yes Hx Asthma: Yes Hx COPD: Yes Hx Cancer: No Hx Gastrointestinal Problems: No Hx Seizures: Yes Review of Systems All Other Systems: negative except mentioned in HPI Physical Exam Vital Signs Date Time Temp Pulse Resp B/P (MAP) Pulse Ox O2 Delivery O2 Flow Rate FiO2 07/09/17 17:36 98.4 125 48 119/78 97 Non-Rebreather 100 Sp02 EP Interpretation: reviewed, normal General Appearance: normal inspection, alert, GCS 15, non-toxic, mild distress Head: normocephalic, atraumatic Eyes: bilateral eye PERRL, bilateral eye EOMI ENT: normal ENT inspection, hearing grossly normal, normal pharynx, no angioedema, normal voice, TMs + canals normal, uvula midline, moist mucus membranes Neck: normal inspection, full range of motion, supple, thyroid normal, no meningismus, no bony tend Respiratory: normal inspection, lungs clear, normal breath sounds, no rhonchi, no respiratory distress, no retraction, no accessory muscle use, decreased breath sounds, accessory muscle use, speaking full sentences, wheezing Cardiovascular #1: regular rate, rhythm, no edema, no JVD, normal capillary refill Gastrointestinal: normal inspection, normal bowel sounds, non tender, soft, no mass, no peritonitis, non-distended, no guarding, no hernia, no pulsatile mass Genitourinary: no CVA tenderness Musculoskeletal: normal inspection, back normal, normal range of motion, no calf tenderness, pelvis stable, Norma's Sign negative Neurologic: normal inspection, alert, oriented x3, responsive, motocross racer III-XII nml as tested, motor strength/tone normal, cerebellar normal, normal gait, speech normal Psychiatric: normal inspection, judgement/insight normal, mood/affect normal, no suicidal/homicidal ideation, no delusions Skin: normal inspection, normal color, no rash Lymphatic: normal inspection, no adenopathy Medical Decision Making Diagnostic Impression: Primary Impression: Asthma exacerbation Qualified Codes: J45.21 - Mild intermittent asthma with (acute) exacerbation Additional Impression: Pneumonia Qualified Codes: J18.9 - Pneumonia, unspecified organism ER Course 32-year-old female with acute asthma exacerbation Proved with BiPAP, DuoNebs, IV magnesium, terbutaline Labs significant for elevated leukocytosis Is treated empirically for pneumonia Chest x-ray significant for right-sided lobar pneumonia Influenza swab pending, was also given Tamiflu due to high risk Endorsed to Dr Kamara for Dr Della HILL bed 932pm EKG Diagnostic Results Rate: tachycardiac Rhythm: NSR ST Segments: no acute changes ASA given to the pt in ED: No Rhythm Strip Diag. Results EP Interpretation: yes Rate: 125 Rhythm: NSR, no PVC's, no ectopy Chest X-Ray Diagnostic Results Chest X-Ray Diagnostic Results : Chest X-Ray Ordered: Yes # of Views/Limited/Complete: 1 View Indication: Shortness of Breath EP Interpretation: Yes Interpretation: no pneumothorax, no acute cardiopulmonary disease, other - Right sided PNA Electronically Signed by: Dr Beverly Yoon MD Last Vital Signs Date Time Temp Pulse Resp B/P (MAP) Pulse Ox O2 Delivery O2 Flow Rate FiO2 07/09/17 20:52 35 07/09/17 20:33 127 24 96 Facial 07/09/17 20:32 98.4 170/91 Status: improved Disposition: ADMITTED INPATIENT Condition: Serious Referrals: [facility],REFERRING (PCP) BEVERLY YOON M.D. Jul 09, 2017 21:33
[2017-07-09 22:01] VITALS: BP 134/108
[2017-07-10] VITALS: BP 143/76
[2017-07-10 04:00] VITALS: BP 123/90
[2017-07-10] MEDS ORDERED: KEPPRA500 M4 ORAL (08:34)
[2017-07-10] MEDS ORDERED: NORVASC5 MG ORAL (08:37)
[2017-07-10] MEDS ORDERED: COLACE100 MG ORAL (08:37)
[2017-07-10] MEDS ORDERED: LEXAPRO10 MG ORAL (08:37)
[2017-07-10] MEDS ORDERED: THEOPHYLLINE A100 MG ORAL (08:37)
[2017-07-10] MEDS ORDERED: GABAPENTIN100 MG ORAL (08:37)
[2017-07-10 09:00] VITALS: BP 109/81
--- NOTE | 2017-07-10 09:56 | Diagnostic Imaging Report ---
Indication: Reason For Exam: SOB Technique: One view of the chest Comparison: 02/27/2017 Findings: Patient is rotated to the right. There is diffuse bilateral infiltrates versus edema. There may be small bilateral pleural effusions. The heart size is upper limits of normal. There is a right sided ventriculoperitoneal shunt again demonstrated Impression: Bilateral diffuse infiltrates versus edema Other findings as noted
[2017-07-10] MEDS: Docusate 100mg cap ORAL SCH ×2 (10:01→17:44)
[2017-07-10] MEDS: Heparin 5000 units/ml inj SUBQ SCH ×2 (10:02→20:51)
[2017-07-10] MEDS: Theophylline ER 100mg ORAL SCH ×2 (10:40→20:50)
[2017-07-10] MEDS: Morphine Sulfate 2mg/ml Inj IVP PRN ×2 (10:41→20:50)
--- NOTE | 2017-07-10 11:31 | Consultation ---
History of Present Illness General Date patient seen: Jul 10, 2017 Time patient seen: 11:17 Chief Complaint: Dyspnea/Respdistress Present Illness HPI 32 y/o F with hx of Asthma, seizure disorder presents to ED on 07/09 with worsening cough and wheezing. Admitted for asthma exacerbation, improved with albuterol therapy on the ED Denies f/c Allergies: Coded Allergies: No Known Allergies (Unverified , 02/19/17) Medication History Scheduled Albuterol Sulfate* (Proair Hfa*), 1 PUFF INH Q6H Amlodipine Besylate (Norvasc), 5 MG ORAL DAILY Docusate Sodium* (Colace*), 100 MG ORAL TWICE A DAY Escitalopram Oxalate* (Lexapro*), 10 MG ORAL DAILY Gabapentin* (Gabapentin*), 100 MG ORAL THREE TIMES A DAY Levetiracetam (Levetiracetam), 500 MG ORAL Q12HR Levetiracetam (Keppra), 500 MG ORAL EVERY 12 HOURS, (Reported) Lidocaine (Lidoderm), 1 PATCH TOPIC EVERY 12 HOURS Polyethylene Glycol 3350* (Miralax*), 17 GM ORAL DAILY Theophylline (Theodur*), 100 MG ORAL EVERY 12 HOURS Patient History Healthcare decision maker Arnulfo Metz Resuscitation status Full Code Advanced Directive on File No Patient History Narrative PMhx: as above Shx: Denies: smoking, alcohol use, drug use Fhx: non contributory Review of Systems ROS Narrative as per HPI, otherwise negative Physical Exam Physical Exam Narrative General Appearance: normal inspection, alert, non-toxic, bipap mask on placed HEENT: normocephalic, atraumatic bilateral eye PERRL, bilateral eye EOMI Neck: supple Respiratory: wheezing Cardiovascular regular rate, rhythm, no edema Gastrointestinal: normal inspection, normal bowel sounds, non tender, soft, no mass, no peritonitis, non-distended, no guarding, no hernia, no pulsatile mass Genitourinary: no CVA tenderness Musculoskeletal: normal inspection, back normal, normal range of motion, no calf tenderness Neurologic: normal inspection, alert, oriented x3, responsive, insurance billing specialist III-XII nml as tested, motor strength/tone normal, cerebellar normal, normal gait, speech normal Skin: normal inspection, normal color, no rash Lymphatic: normal inspection, no adenopathy Last 24 Hour Vital Signs Date Time Temp Pulse Resp B/P (MAP) Pulse Ox O2 Delivery O2 Flow Rate FiO2 07/10/17 10:01 98 109/81 07/10/17 09:17 98 25 93 Facial 40 07/10/17 09:00 98.0 118 109/81 07/10/17 07:54 89 07/10/17 07:53 40 07/10/17 07:08 Bi-pap 40 07/10/17 07:08 90 Bi-pap 40 07/10/17 04:57 98 23 94 Facial 40 07/10/17 04:00 98 07/10/17 04:00 98.8 115 123/90 07/10/17 04:00 40 07/10/17 02:39 113 17 92 Facial 40 07/10/17 01:14 Nasal Cannula 3.0 32 07/10/17 01:14 94 Nasal Cannula 3.0 32 07/10/17 00:00 98.1 121 143/76 07/10/17 00:00 87 07/10/17 00:00 40 07/09/17 23:30 122 23 92 Facial 40 07/09/17 22:26 98.4 130 27 134/108 95 35 07/09/17 22:01 98.4 130 27 134/108 95 35 07/09/17 20:52 35 07/09/17 20:33 127 24 96 Facial 35 07/09/17 20:32 135 23 Bi-pap 35 07/09/17 20:32 98.4 132 32 170/91 94 Bi-pap 35 07/09/17 18:39 135 23 97 Bi-pap 50 07/09/17 18:34 141 35 98 Facial 50 07/09/17 18:24 131 23 97 Bi-pap 50 07/09/17 18:24 50 07/09/17 18:23 131 26 98 Bi-pap 50 07/09/17 18:10 50 07/09/17 18:09 132 34 96 Bi-pap 07/09/17 18:08 136 40 97 Bi-pap 50 07/09/17 18:06 138 40 95 Bi-pap 07/09/17 18:06 50 07/09/17 18:01 128 40 Bi-pap 50 07/09/17 17:36 98.4 125 48 119/78 97 Non-Rebreather 100 Intake and Output 07/09/17 07/10/17 19:00 07:00 Intake Total 120 ml Output Total 0 ml Balance 120 ml Intake Oral 120 ml Output Urine Total 0 ml # Voids 4 Laboratory Tests Test 07/09/17 18:19 White Blood Count 20.3 K/UL (4.8-10.8) H Red Blood Count 3.57 M/UL (4.20-5.40) L Hemoglobin 10.6 G/DL (12.0-16.0) L Hematocrit 35.5 % (37.0-47.0) L Mean Corpuscular Volume 99 FL (80-99) Mean Corpuscular Hemoglobin 29.8 PG (27.0-31.0) Mean Corpuscular Hemoglobin Concent 30.0 G/DL (32.0-36.0) L Red Cell Distribution Width 14.1 % (11.6-14.8) Platelet Count 222 K/UL (150-450) Mean Platelet Volume 8.1 FL (6.5-10.1) Neutrophils (%) (Auto) % (45.0-75.0) Lymphocytes (%) (Auto) % (20.0-45.0) Monocytes (%) (Auto) % (1.0-10.0) Eosinophils (%) (Auto) % (0.0-3.0) Basophils (%) (Auto) % (0.0-2.0) Differential Total Cells Counted 100 Neutrophils % (Manual) 81 % (45-75) H Lymphocytes % (Manual) 7 % (20-45) L Monocytes % (Manual) 9 % (1-10) Eosinophils % (Manual) 1 % (0-3) Basophils % (Manual) 0 % (0-2) Band Neutrophils 2 % (0-8) Platelet Estimate Adequate Platelet Morphology Normal Polychromasia 1+ Hypochromasia 2+ Anisocytosis 1+ Macrocytosis 1+ Sodium Level 137 MMOL/L (136-145) Potassium Level 4.4 MMOL/L (3.5-5.1) Chloride Level 89 MMOL/L (98-107) L Carbon Dioxide Level > 45 MMOL/L (21-32) *H Blood Urea Nitrogen 16 mg/dL (7-18) Creatinine 0.9 MG/DL (0.55-1.30) Estimat Glomerular Filtration Rate > 60 mL/min (>60) Glucose Level 190 MG/DL (74-106) H Calcium Level 8.0 MG/DL (8.5-10.1) L Total Bilirubin 0.3 MG/DL (0.2-1.0) Aspartate Amino Transf (AST/SGOT) 35 U/L (15-37) Alanine Aminotransferase (ALT/SGPT) 32 U/L (12-78) Alkaline Phosphatase 58 U/L (46-116) Total Creatine Kinase 485 U/L (26-308) H Creatine Kinase MB 7.2 NG/ML (0.0-3.6) H Creatine Kinase MB Relative Index 1.4 Troponin I 0.018 ng/mL (0.000-0.056) Pro-B-Type Natriuretic Peptide 344 pg/mL (0-125) H Total Protein 7.7 G/DL (6.4-8.2) Albumin 3.2 G/DL (3.4-5.0) L Globulin 4.5 g/dL Albumin/Globulin Ratio 0.7 (1.0-2.7) L Height (Feet): 5 Height (Inches): 5.00 Weight (Pounds): 250 Medications Current Medications Medications (Trade) Dose Ordered Sig/Selvin Route PRN Reason Start Time Stop Time Status Last Admin Dose Admin Amlodipine Besylate (Norvasc) 5 mg DAILY ORAL 07/10/17 09:45 08/09/17 09:44 07/10/17 10:01 Docusate Sodium (Colace) 100 mg TWICE A DAY ORAL 07/10/17 09:45 08/09/17 09:44 07/10/17 10:01 Escitalopram Oxalate (Lexapro) 10 mg DAILY ORAL 07/10/17 09:45 08/09/17 09:44 07/10/17 10:01 Gabapentin (Neurontin) 100 mg THREE TIMES A DAY ORAL 07/10/17 09:45 08/09/17 09:44 07/10/17 10:01 Heparin Sodium (Porcine) (Heparin 5000 units/ml) 5,000 units EVERY 12 HOURS SUBQ 07/10/17 09:45 08/09/17 09:44 07/10/17 10:02 Levetiracetam (Keppra) 500 mg Q12HR ORAL 07/10/17 09:45 08/09/17 09:44 07/10/17 10:01 Morphine Sulfate (Morphine Sulfate) 1 mg EVERY 6 HOURS PRN IVP Severe Pain (Pain Scale 7-10) 07/10/17 09:00 07/17/17 08:59 07/10/17 10:41 Prednisone (predniSONE) 20 mg DAILY ORAL 07/10/17 09:00 08/09/17 08:59 07/10/17 10:01 Theophylline (Paresh-Dur) 100 mg EVERY 12 HOURS ORAL 07/10/17 09:45 08/09/17 09:44 07/10/17 10:40 Assessment/Plan Assessment/Plan Abx: Levaquin x1 07/09 Assessment: Asthma exacerbation- r/o Influenza, r/o bacterial bronchitis -CXR: Bilateral diffuse infiltrates versus edema Leukocytosis Plan: -Continue PO levaquin #2/5 for asthma exacerbation and possible bacterial bronchitis -Start Empiric Tamiflu pending influenza test -f/u cx -Monitor CBC/BMP, temperatures Thank you for this consultation. Will continue to follow along with you. Discussed with RAJIV. Magdalena Jones M.D. Jul 10, 2017 11:31
[2017-07-10 12:00] VITALS: BP 131/74
[2017-07-10] MEDS: Oseltamivir 75mg cap ORAL SCH ×2 (12:53→17:44)
[2017-07-10 15:50] VITALS: BP 111/78
[2017-07-10 20:00] VITALS: BP 129/71
--- NOTE | 2017-07-10 20:41 | History & Physical ---
History and Physical History & Physicial Job ID [id number] Uche Leon Jul 10, 2017 20:40
[2017-07-10] MEDS: Levofloxacin 500mg tab ORAL SCH (20:49)
--- NOTE | 2017-07-10 22:45 | History and Physical Report ---
DATE OF ADMISSION: 07/09/2017 I am covering for Dr. Hull. REASON FOR ADMISSION: Shortness of breath. IDENTIFYING DATA: The patient is a pleasant 32-year-old female with past medical history significant for asthma and seizure disorder, at this time presents to the ER for worsening shortness of breath as well as wheezing and noted to have exacerbation, started on steroids as well as breathing treatments and antibiotics. Given breathing treatments and currently requiring oxygen nasal cannula. I have consulted Pulmonary team as well as ID service. PAST MEDICAL HISTORY: As noted above. ALLERGIES: No known drug allergies. MEDICATIONS: Albuterol, amlodipine, , Neurontin, Keppra, lidocaine and theophylline. SOCIAL HISTORY: No alcohol, tobacco, or illicit drug use. FAMILY HISTORY: Noncontributory. REVIEW OF SYSTEMS: A 12-point review of systems is otherwise negative. PHYSICAL EXAMINATION: GENERAL: In no acute distress. VITAL SIGNS: Reviewed. PULMONARY: Decreased breath sounds. Some crackles at bilateral bases. CARDIOVASCULAR: Regular rate. No S3 or S4. ABDOMEN: Soft, nontender, and nondistended. EXTREMITIES: A 1+ edema. LABORATORY DATA: WBC 20,000, hemoglobin 10, hematocrit 35, and platelets 122,000. BUN of 16 and creatinine 0.9. ASSESSMENT AND RECOMMENDATIONS: 1. Seizure disorder. Currently would continue the patient on Keppra dosing. 2. Shortness of breath, related to underlying asthma exacerbation. Started the patient on Levaquin for bacterial bronchitis. Continue per ID service. 3. Asthma exacerbation infiltrates noted. We will have the patient continue Tamiflu. 4. Elevated bicarb, potentially related to acidosis, retention of CO2. 5. Hypoglycemia, potentially related to steroids. 6. Leukocytosis related to underlying steroids. 7. Anemia secondary to chronic disease. Continue to closely monitor. 8. Continue to closely monitor the patient on malnourishment. Albumin is 3.2. I appreciate the health care consultant care. Uche Leon M.D. DR: AZUCENA JOB#: [id number] CC:
[2017-07-11 00:46] VITALS: BP 134/84
[2017-07-11 04:00] VITALS: BP 135/79
[2017-07-11] MEDS: Morphine Sulfate 2mg/ml Inj IVP PRN ×4 (06:53→20:39)
[2017-07-11 08:00] VITALS: BP 147/77
[2017-07-11] MEDS: Levofloxacin 500mg tab ORAL SCH (09:02)
[2017-07-11] MEDS: Theophylline ER 100mg ORAL SCH ×2 (09:02→20:25)
[2017-07-11] MEDS: Docusate 100mg cap ORAL SCH ×2 (09:02→17:10)
[2017-07-11] MEDS: Heparin 5000 units/ml inj SUBQ SCH ×2 (09:03→20:29)
[2017-07-11] MEDS: Oseltamivir 75mg cap ORAL SCH ×2 (10:16→17:10)
[2017-07-11 12:00] VITALS: BP 127/89
--- NOTE | 2017-07-11 12:49 | Consultation ---
History of Present Illness General Date patient seen: Jul 11, 2017 Chief Complaint: Dyspnea/Respdistress Referring physician: Dr. Kamara Reason for Consultation: dysnea Present Illness HPI 32 year old female with hx of Asthma presented with acute worsening of cough and asthma exacerbation in last day she had decreased breath sounds, wheezing on presentation . Was given albuterol by paramedics with improvement Pt was in respiratory failure and was put on BIPAP in Er and transferred to [facility]. Pt is currently awake and still short of breath and still on BIPAP. Allergies: Coded Allergies: No Known Allergies (Unverified , 02/19/17) Medication History Scheduled Albuterol Sulfate* (Proair Hfa*), 1 PUFF INH Q6H Amlodipine Besylate (Norvasc), 5 MG ORAL DAILY Docusate Sodium* (Colace*), 100 MG ORAL TWICE A DAY Escitalopram Oxalate* (Lexapro*), 10 MG ORAL DAILY Gabapentin* (Gabapentin*), 100 MG ORAL THREE TIMES A DAY Levetiracetam (Levetiracetam), 500 MG ORAL Q12HR Levetiracetam (Keppra), 500 MG ORAL EVERY 12 HOURS, (Reported) Lidocaine (Lidoderm), 1 PATCH TOPIC EVERY 12 HOURS Polyethylene Glycol 3350* (Miralax*), 17 GM ORAL DAILY Theophylline (Theodur*), 100 MG ORAL EVERY 12 HOURS Patient History Healthcare decision maker Arnulfo Metz Resuscitation status Full Code Advanced Directive on File No Review of Systems All Other Systems: negative except mentioned in HPI Physical Exam General Appearance: WD/WN Lines, tubes and drains: peripheral HEENT: normocephalic, atraumatic Neck: non-tender, normal alignment Respiratory/Chest: chest wall non-tender, normal breath sounds Breasts: no masses Cardiovascular/Chest: normal rate Abdomen: normal bowel sounds Genitourinary/Rectal: normal genital exam Extremities: normal range of motion Last 24 Hour Vital Signs Date Time Temp Pulse Resp B/P (MAP) Pulse Ox O2 Delivery O2 Flow Rate FiO2 07/11/17 12:25 40 07/11/17 12:25 87 07/11/17 11:11 110 25 96 Facial 40 07/11/17 09:02 100 147/77 07/11/17 08:56 100 20 96 Facial 40 07/11/17 08:00 96.8 78 18 147/77 98 07/11/17 07:55 89 07/11/17 07:55 40 07/11/17 07:19 Bi-pap 40 07/11/17 07:19 95 Bi-pap 40 07/11/17 07:15 109 19 95 Facial 40 07/11/17 05:47 116 20 96 Facial 15.0 40 07/11/17 04:00 98.7 101 20 135/79 94 07/11/17 04:00 97 07/11/17 04:00 40 07/11/17 03:32 111 20 96 Facial 15.0 40 07/11/17 01:20 108 20 95 Facial 15.0 40 07/11/17 00:46 98.9 105 20 134/84 93 07/11/17 00:00 40 07/11/17 00:00 110 07/10/17 23:15 106 22 95 Facial 15.0 40 07/10/17 21:20 97.9 07/10/17 21:05 91 18 97 Facial 15.0 40 07/10/17 20:00 88 07/10/17 20:00 40 07/10/17 20:00 97.9 75 18 129/71 97 07/10/17 19:42 114 19 95 Facial 15.0 40 07/10/17 19:01 Bi-pap 40 07/10/17 19:01 91 Bi-pap 40 07/10/17 15:50 97.9 102 19 111/78 99 Bi-pap 15.0 40 07/10/17 15:22 40 07/10/17 15:22 85 07/10/17 15:07 111 18 91 Facial 40 07/10/17 12:57 108 18 92 Facial 40 Intake and Output 07/10/17 07/11/17 19:00 07:00 Intake Total 770 ml Balance 770 ml Intake Oral 770 ml # Voids 8 7 Height (Feet): 5 Height (Inches): 5.00 Weight (Pounds): 250 Medications Current Medications Medications (Trade) Dose Ordered Sig/Selvin Route PRN Reason Start Time Stop Time Status Last Admin Dose Admin Amlodipine Besylate (Norvasc) 5 mg DAILY ORAL 07/10/17 09:45 08/09/17 09:44 07/11/17 09:02 Docusate Sodium (Colace) 100 mg TWICE A DAY ORAL 07/10/17 09:45 08/09/17 09:44 07/11/17 09:02 Escitalopram Oxalate (Lexapro) 10 mg DAILY ORAL 07/10/17 09:45 08/09/17 09:44 07/11/17 09:02 Gabapentin (Neurontin) 100 mg THREE TIMES A DAY ORAL 07/10/17 09:45 08/09/17 09:44 07/11/17 09:02 Heparin Sodium (Porcine) (Heparin 5000 units/ml) 5,000 units EVERY 12 HOURS SUBQ 07/10/17 09:45 08/09/17 09:44 07/11/17 09:03 Levetiracetam (Keppra) 500 mg Q12HR ORAL 07/10/17 09:45 08/09/17 09:44 07/11/17 09:18 Levofloxacin (Levaquin) 500 mg DAILY ORAL 07/10/17 21:00 07/17/17 20:59 07/11/17 09:02 Morphine Sulfate (Morphine Sulfate) 1 mg EVERY 6 HOURS PRN IVP Severe Pain (Pain Scale 7-10) 07/10/17 09:00 07/17/17 08:59 07/11/17 12:05 Oseltamivir Phosphate (Tamiflu) 75 mg TWICE A DAY ORAL 07/10/17 12:15 07/15/17 12:14 07/11/17 10:16 Prednisone (predniSONE) 20 mg DAILY ORAL 07/10/17 09:00 08/09/17 08:59 07/11/17 09:02 Theophylline (Paresh-Dur) 100 mg EVERY 12 HOURS ORAL 07/10/17 09:45 08/09/17 09:44 07/11/17 09:02 Assessment/Plan Problem List: (1) Acute hypercapnic respiratory failure ICD Codes: J96.02 - Acute respiratory failure with hypercapnia SNOMED: 830604771 (2) Asthma exacerbation ICD Codes: J45.901 - Unspecified asthma with (acute) exacerbation SNOMED: 010744281 Qualifiers: Qualified Codes: J45.21 - Mild intermittent asthma with (acute) exacerbation (3) Aspiration pneumonia ICD Codes: J69.0 - Pneumonitis due to inhalation of food and vomit SNOMED: 005554903 (4) Ventriculo-peritoneal shunt status ICD Codes: Z98.2 - Presence of cerebrospinal fluid drainage device SNOMED: 28924669, 178153889 Assessment/Plan titrate bipap respiratory treatment IV abx and steroids check cxr in am dvt prophylaxis. CRISTINA BRAMBILA Jul 11, 2017 12:49
--- NOTE | 2017-07-11 13:37 | Infectious Diseases Prog Note ---
Assessment/Plan Assessment/Plan Abx: Levaquin x1 07/09 Tamiflu 07/10- Assessment: Asthma exacerbation- r/o Influenza, r/o bacterial bronchitis-possible PNA -CXR: Bilateral diffuse infiltrates versus edema Leukocytosis, no CBC today Plan: -Continue PO levaquin #3/5 for asthma exacerbation and possible bacterial bronchitis/PNA -Continue Empiric Tamiflu #2 pending influenza test -obtain sputum cx -f/u cx -Monitor CBC/BMP, temperatures; CXR and CBC am Thank you for this consultation. Will continue to follow along with you. Discussed with RN. Subjective Allergies: Coded Allergies: No Known Allergies (Unverified , 02/19/17) Subjective afebrile no cbc today remains on Bipap Objective Vital Signs Last 24 Hour Vital Signs Date Time Temp Pulse Resp B/P (MAP) Pulse Ox O2 Delivery O2 Flow Rate FiO2 07/11/17 13:11 106 27 91 Facial 40 07/11/17 12:25 40 07/11/17 12:25 87 07/11/17 11:11 110 25 96 Facial 40 07/11/17 09:02 100 147/77 07/11/17 08:56 100 20 96 Facial 40 07/11/17 08:00 96.8 78 18 147/77 98 07/11/17 07:55 89 07/11/17 07:55 40 07/11/17 07:19 Bi-pap 40 07/11/17 07:19 95 Bi-pap 40 07/11/17 07:15 109 19 95 Facial 40 07/11/17 05:47 116 20 96 Facial 15.0 40 07/11/17 04:00 98.7 101 20 135/79 94 07/11/17 04:00 97 07/11/17 04:00 40 07/11/17 03:32 111 20 96 Facial 15.0 40 07/11/17 01:20 108 20 95 Facial 15.0 40 07/11/17 00:46 98.9 105 20 134/84 93 07/11/17 00:00 40 07/11/17 00:00 110 07/10/17 23:15 106 22 95 Facial 15.0 40 07/10/17 21:20 97.9 07/10/17 21:05 91 18 97 Facial 15.0 40 07/10/17 20:00 88 07/10/17 20:00 40 07/10/17 20:00 97.9 75 18 129/71 97 07/10/17 19:42 114 19 95 Facial 15.0 40 07/10/17 19:01 Bi-pap 40 07/10/17 19:01 91 Bi-pap 40 07/10/17 15:50 97.9 102 19 111/78 99 Bi-pap 15.0 40 07/10/17 15:22 40 07/10/17 15:22 85 07/10/17 15:07 111 18 91 Facial 40 Height (Feet): 5 Height (Inches): 5.00 Weight (Pounds): 250 Objective General Appearance: normal inspection, alert, non-toxic, bipap mask on placed HEENT: normocephalic, atraumatic bilateral eye PERRL, bilateral eye EOMI Neck: supple Respiratory: wheezing Cardiovascular regular rate, rhythm, no edema Gastrointestinal: normal inspection, normal bowel sounds, non tender, soft, no mass, no peritonitis, non-distended, no guarding, no hernia, no pulsatile mass Genitourinary: no CVA tenderness Musculoskeletal: normal inspection, back normal, normal range of motion, no calf tenderness Neurologic: normal inspection, alert, oriented x3, responsive, retoucher III-XII nml as tested, motor strength/tone normal, cerebellar normal, normal gait, speech normal Skin: normal inspection, normal color, no rash Lymphatic: normal inspection, no adenopathy. Microbiology Date/Time Source Procedure Growth Status 07/09/17 20:45 Blood Blood Culture - Preliminary NO GROWTH AFTER 24 HOURS Resulted 07/09/17 20:30 Blood Blood Culture - Preliminary NO GROWTH AFTER 24 HOURS Resulted Current Medications Medications (Trade) Dose Ordered Sig/Selvin Route PRN Reason Start Time Stop Time Status Last Admin Dose Admin Amlodipine Besylate (Norvasc) 5 mg DAILY ORAL 07/10/17 09:45 08/09/17 09:44 07/11/17 09:02 Docusate Sodium (Colace) 100 mg TWICE A DAY ORAL 07/10/17 09:45 08/09/17 09:44 07/11/17 09:02 Escitalopram Oxalate (Lexapro) 10 mg DAILY ORAL 07/10/17 09:45 08/09/17 09:44 07/11/17 09:02 Gabapentin (Neurontin) 100 mg THREE TIMES A DAY ORAL 07/10/17 09:45 08/09/17 09:44 07/11/17 09:02 Heparin Sodium (Porcine) (Heparin 5000 units/ml) 5,000 units EVERY 12 HOURS SUBQ 07/10/17 09:45 08/09/17 09:44 07/11/17 09:03 Levetiracetam (Keppra) 500 mg Q12HR ORAL 07/10/17 09:45 08/09/17 09:44 07/11/17 09:18 Methylprednisolone Sodium Succinate (Solu-MEDROL) 60 mg EVERY 6 HOURS IV 07/11/17 18:00 08/10/17 17:59 Morphine Sulfate (Morphine Sulfate) 1 mg EVERY 6 HOURS PRN IVP Severe Pain (Pain Scale 7-10) 07/10/17 09:00 07/17/17 08:59 07/11/17 12:05 Oseltamivir Phosphate (Tamiflu) 75 mg TWICE A DAY ORAL 07/10/17 12:15 07/15/17 12:14 07/11/17 10:16 Piperacillin Sod/ Tazobactam Sod 3.375 gm/Sodium Chloride 110 ml @ 27.5 mls/hr EVERY 8 HOURS IVPB 07/11/17 14:00 07/18/17 23:59 Theophylline (Paresh-Dur) 100 mg EVERY 12 HOURS ORAL 07/10/17 09:45 08/09/17 09:44 07/11/17 09:02 Magdalena Jones M.D. Jul 11, 2017 13:37
[2017-07-11] MEDS: Piperacillin/Tazobactam 3.375 GM in NS 110 ML IVPB SCH ×2 (13:58→21:14)
[2017-07-11 16:00] VITALS: BP 142/97
[2017-07-11] MEDS: Solu-MEDROL 125mg Inj IV SCH (17:10)
--- NOTE | 2017-07-11 19:36 | General Progress Note ---
Assessment/Plan Assessment/Plan ASSESSMENT AND RECOMMENDATIONS: 1. Seizure disorder. Currently would continue the patient on Keppra dosing. 2. Shortness of breath, related to underlying asthma exacerbation. Started the patient on Levaquin for bacterial bronchitis. Continue per ID service. --> appreciate Pulm recs 3. Asthma exacerbation with infiltrates noted. We will have the patient continue Tamiflu. 4. Elevated bicarb, potentially related to acidosis, retention of CO2. 5. Hypoglycemia, potentially related to steroids. 6. Leukocytosis related to underlying steroids. 7. Anemia secondary to chronic disease. Continue to closely monitor. 8. Continue to closely monitor the patient on malnourishment. Albumin is 3.2. Subjective Constitutional: Denies: no symptoms, chills, diaphoresis, fever, malaise, weakness, other HEENT: Denies: no symptoms, eye pain, blurred vision, tearing, double vision, ear pain, ear discharge, nose pain, nose congestion, throat pain, throat swelling, mouth pain, mouth swelling, other Cardiovascular: Denies: no symptoms, chest pain, edema, irregular heart rate, lightheadedness, palpitations, syncope, other Respiratory: Denies: no symptoms, cough, orthopnea, shortness of breath, SOB with excertion, SOB at rest, sputum, stridor, wheezing, other Gastrointestinal/Abdominal: Denies: no symptoms, abdomen distended, abdominal pain, black stools, tarry stools, blood in stool, constipated, diarrhea, difficulty swallowing, nausea, poor appetite, poor fluid intake, rectal bleeding , vomiting, other Genitourinary: Denies: no symptoms, burning, discharge, frequency, flank pain, hematuria, incontinence, pain, urgency, other Neurologic/Psychiatric: Denies: no symptoms, anxiety, depressed, emotional problems, headache, numbness, paresthesia, pre-existing deficit, seizure, tingling, tremors, weakness, other Endocrine: Denies: no symptoms, excessive sweating, flushing, intolerance to cold, intolerance to heat, increased hunger, increased thirst, increased urine, unexplained weight gain, unexplained weight loss, other Hematologic/Lymphatic: Denies: no symptoms, anemia, easy bleeding, easy bruising, other Allergies: Coded Allergies: No Known Allergies (Unverified , 02/19/17) Objective Last 24 Hour Vital Signs Date Time Temp Pulse Resp B/P (MAP) Pulse Ox O2 Delivery O2 Flow Rate FiO2 07/11/17 19:33 94 Bi-pap 40 07/11/17 19:33 Bi-pap 40 07/11/17 19:20 99 21 94 Facial 40 07/11/17 16:00 97.5 109 18 142/97 94 07/11/17 16:00 79 07/11/17 16:00 40 07/11/17 13:11 106 27 91 Facial 40 07/11/17 12:25 40 07/11/17 12:25 87 07/11/17 12:00 98.9 101 22 127/89 94 07/11/17 11:11 110 25 96 Facial 40 07/11/17 09:02 100 147/77 07/11/17 08:56 100 20 96 Facial 40 07/11/17 08:00 96.8 78 18 147/77 98 07/11/17 07:55 89 07/11/17 07:55 40 07/11/17 07:19 Bi-pap 40 07/11/17 07:19 95 Bi-pap 40 07/11/17 07:15 109 19 95 Facial 40 07/11/17 05:47 116 20 96 Facial 15.0 40 07/11/17 04:00 98.7 101 20 135/79 94 07/11/17 04:00 97 07/11/17 04:00 40 07/11/17 03:32 111 20 96 Facial 15.0 40 07/11/17 01:20 108 20 95 Facial 15.0 40 07/11/17 00:46 98.9 105 20 134/84 93 07/11/17 00:00 40 07/11/17 00:00 110 07/10/17 23:15 106 22 95 Facial 15.0 40 07/10/17 21:20 97.9 07/10/17 21:05 91 18 97 Facial 15.0 40 07/10/17 20:00 88 07/10/17 20:00 40 07/10/17 20:00 97.9 75 18 129/71 97 07/10/17 19:42 114 19 95 Facial 15.0 40 Intake and Output 07/10/17 07/11/17 19:00 07:00 Intake Total 770 ml Balance 770 ml Intake Oral 770 ml # Voids 8 7 Height (Feet): 5 Height (Inches): 5.00 Weight (Pounds): 250 General Appearance: no apparent distress EENT: pharynx normal Neck: normal alignment Cardiovascular: regular rhythm Respiratory/Chest: chest wall non-tender Abdomen: non tender Extremities: non-tender Edema: 1+ Leg (L), 1+ Leg (R) Edema: mild edema Neurologic: alert Uche Leon Jul 11, 2017 19:36
[2017-07-11 20:00] VITALS: BP 158/89
[2017-07-11 21:09] LABS: HEMATOCRIT 34.3 % (37.0-47.0); HEMOGLOBIN 10.4 G/DL (12.0-16.0); MEAN CORPUSCULAR VOLUME 101 FL (80-99); PLATELET COUNT 245 K/UL (150-450); RED BLOOD COUNT 3.41 M/UL (4.20-5.40); RED CELL DISTRIBUTION WIDTH 14.9 % (11.6-14.8); WHITE BLOOD COUNT 13.8 K/UL (4.8-10.8)
[2017-07-11 21:21] LABS: ALANINE AMINOTRANSFERASE 21 U/L (12-78); ALBUMIN 2.9 G/DL (3.4-5.0); ALBUMIN/GLOBULIN RATIO 0.7 (1.0-2.7); ALKALINE PHOSPHATASE 55 U/L (46-116); ANION GAP 2 mmol/L (5-15); ASPARTATE AMINO TRANSFERASE 21 U/L (15-37); BILIRUBIN,TOTAL 0.4 MG/DL (0.2-1.0); BLOOD UREA NITROGEN 19 mg/dL (7-18); CALCIUM 7.9 MG/DL (8.5-10.1); CHLORIDE 96 MMOL/L (98-107); CREATININE 1.1 MG/DL (0.55-1.30); POTASSIUM 4.4 MMOL/L (3.5-5.1); SODIUM 140 MMOL/L (136-145)
[2017-07-11 21:36] LABS: CARBON DIOXIDE 42 MMOL/L (21-32)
[2017-07-12] VITALS: BP 157/76
[2017-07-12] MEDS: Solu-MEDROL 125mg Inj IV SCH ×4 (00:19→18:00)
[2017-07-12 04:00] VITALS: BP 147/86
[2017-07-12] MEDS: Morphine Sulfate 2mg/ml Inj IVP PRN ×3 (04:05→18:10)
[2017-07-12 05:48] LABS: HEMATOCRIT 34.2 % (37.0-47.0); HEMOGLOBIN 10.3 G/DL (12.0-16.0); MEAN CORPUSCULAR VOLUME 101 FL (80-99); PLATELET COUNT 253 K/UL (150-450); RED BLOOD COUNT 3.39 M/UL (4.20-5.40); RED CELL DISTRIBUTION WIDTH 14.8 % (11.6-14.8); WHITE BLOOD COUNT 14.3 K/UL (4.8-10.8)
[2017-07-12] MEDS: Piperacillin/Tazobactam 3.375 GM in NS 110 ML IVPB SCH ×3 (06:11→21:26)
[2017-07-12 06:44] LABS: ALANINE AMINOTRANSFERASE 26 U/L (12-78); ALBUMIN 2.9 G/DL (3.4-5.0); ALBUMIN/GLOBULIN RATIO 0.7 (1.0-2.7); ALKALINE PHOSPHATASE 57 U/L (46-116); ANION GAP 9 mmol/L (5-15); ASPARTATE AMINO TRANSFERASE 29 U/L (15-37); BILIRUBIN,TOTAL 0.3 MG/DL (0.2-1.0); BLOOD UREA NITROGEN 18 mg/dL (7-18); CARBON DIOXIDE 35 MMOL/L (21-32); CHLORIDE 95 MMOL/L (98-107); CREATININE 1.1 MG/DL (0.55-1.30); POTASSIUM 4.6 MMOL/L (3.5-5.1); SODIUM 139 MMOL/L (136-145)
[2017-07-12 08:00] VITALS: BP 128/79
[2017-07-12] MEDS: Theophylline ER 100mg ORAL SCH ×2 (10:00→20:35)
[2017-07-12] MEDS: Docusate 100mg cap ORAL SCH ×2 (10:00→18:03)
[2017-07-12] MEDS: Heparin 5000 units/ml inj SUBQ SCH ×2 (10:04→20:36)
[2017-07-12] MEDS: Oseltamivir 75mg cap ORAL SCH ×2 (10:05→18:04)
--- NOTE | 2017-07-12 10:57 | Infectious Diseases Prog Note ---
Assessment/Plan Assessment/Plan Assessment: Asthma exacerbation- r/o Influenza, r/o bacterial bronchitis-possible PNA -CXR: Bilateral diffuse infiltrates versus edema -sp cx p Leukocytosis, improving Plan: -Continue PO levaquin #4/5-7 for asthma exacerbation and possible bacterial bronchitis/PNA -Continue Empiric Tamiflu #3/5 -obtain sputum cx -f/u cx -Monitor CBC/BMP, temperatures; CXR am Thank you for this consultation. Will continue to follow along with you. Discussed with RN. Subjective Allergies: Coded Allergies: No Known Allergies (Unverified , 02/19/17) Subjective afebrile remains on Bipap leukocytosis improving sp cx NTD Objective Vital Signs Last 24 Hour Vital Signs Date Time Temp Pulse Resp B/P (MAP) Pulse Ox O2 Delivery O2 Flow Rate FiO2 07/12/17 10:01 86 128/79 07/12/17 08:59 86 16 98 Facial 40 07/12/17 08:00 97.9 86 20 128/79 93 07/12/17 08:00 40 07/12/17 08:00 95 07/12/17 07:26 98 Bi-pap 40 07/12/17 07:26 Bi-pap 40 07/12/17 07:20 83 16 98 Facial 40 07/12/17 05:14 102 16 95 Facial 40 07/12/17 04:00 89 07/12/17 04:00 98.2 99 24 147/86 93 07/12/17 04:00 40 07/12/17 03:25 108 18 94 Facial 40 07/12/17 01:20 103 18 95 Facial 40 07/12/17 00:00 40 07/12/17 00:00 115 07/12/17 00:00 98.2 109 24 157/76 93 07/11/17 23:08 104 20 95 Facial 40 07/11/17 21:04 99 24 94 Facial 40 07/11/17 20:00 98.9 107 24 158/89 96 07/11/17 20:00 109 07/11/17 20:00 40 07/11/17 19:33 94 Bi-pap 40 07/11/17 19:33 Bi-pap 40 07/11/17 19:20 99 21 94 Facial 40 07/11/17 16:00 97.5 109 18 142/97 94 07/11/17 16:00 79 07/11/17 16:00 40 07/11/17 13:11 106 27 91 Facial 40 07/11/17 12:25 40 07/11/17 12:25 87 07/11/17 12:00 98.9 101 22 127/89 94 07/11/17 11:11 110 25 96 Facial 40 Height (Feet): 5 Height (Inches): 5.00 Weight (Pounds): 250 Objective General Appearance: normal inspection, alert, non-toxic, bipap mask on placed HEENT: normocephalic, atraumatic bilateral eye PERRL, bilateral eye EOMI Neck: supple Respiratory: wheezing Cardiovascular regular rate, rhythm, no edema Gastrointestinal: normal inspection, normal bowel sounds, non tender, soft, no mass, no peritonitis, non-distended, no guarding, no hernia, no pulsatile mass Genitourinary: no CVA tenderness Musculoskeletal: normal inspection, back normal, normal range of motion, no calf tenderness Neurologic: normal inspection, alert, oriented x3, responsive, poker room manager III-XII nml as tested, motor strength/tone normal, cerebellar normal, normal gait, speech normal Skin: normal inspection, normal color, no rash Lymphatic: normal inspection, no adenopathy. Microbiology Date/Time Source Procedure Growth Status 07/09/17 20:45 Blood Blood Culture - Preliminary NO GROWTH AFTER 48 HOURS Resulted 07/09/17 20:30 Blood Blood Culture - Preliminary NO GROWTH AFTER 48 HOURS Resulted 07/11/17 14:35 Sputum Induced Gram Stain - Final Resulted 07/11/17 14:35 Sputum Induced Sputum Culture - Preliminary NO GROWTH Resulted Laboratory Tests Test 07/11/17 20:30 07/12/17 02:50 White Blood Count 13.8 K/UL (4.8-10.8) H 14.3 K/UL (4.8-10.8) H Red Blood Count 3.41 M/UL (4.20-5.40) L 3.39 M/UL (4.20-5.40) L Hemoglobin 10.4 G/DL (12.0-16.0) L 10.3 G/DL (12.0-16.0) L Hematocrit 34.3 % (37.0-47.0) L 34.2 % (37.0-47.0) L Mean Corpuscular Volume 101 FL (80-99) H 101 FL (80-99) H Mean Corpuscular Hemoglobin 30.4 PG (27.0-31.0) 30.4 PG (27.0-31.0) Mean Corpuscular Hemoglobin Concent 30.2 G/DL (32.0-36.0) L 30.2 G/DL (32.0-36.0) L Red Cell Distribution Width 14.9 % (11.6-14.8) H 14.8 % (11.6-14.8) Platelet Count 245 K/UL (150-450) 253 K/UL (150-450) Mean Platelet Volume 7.6 FL (6.5-10.1) 6.7 FL (6.5-10.1) Neutrophils (%) (Auto) % (45.0-75.0) % (45.0-75.0) Lymphocytes (%) (Auto) % (20.0-45.0) % (20.0-45.0) Monocytes (%) (Auto) % (1.0-10.0) % (1.0-10.0) Eosinophils (%) (Auto) % (0.0-3.0) % (0.0-3.0) Basophils (%) (Auto) % (0.0-2.0) % (0.0-2.0) Differential Total Cells Counted 100 Neutrophils % (Manual) 88 % (45-75) H Lymphocytes % (Manual) 9 % (20-45) L Monocytes % (Manual) 3 % (1-10) Eosinophils % (Manual) 0 % (0-3) Basophils % (Manual) 0 % (0-2) Band Neutrophils 0 % (0-8) Platelet Estimate Adequate Platelet Morphology Normal Sodium Level 140 MMOL/L (136-145) 139 MMOL/L (136-145) Potassium Level 4.4 MMOL/L (3.5-5.1) 4.6 MMOL/L (3.5-5.1) Chloride Level 96 MMOL/L (98-107) L 95 MMOL/L (98-107) L Carbon Dioxide Level 42 MMOL/L (21-32) *H 35 MMOL/L (21-32) H Anion Gap 2 mmol/L (5-15) L 9 mmol/L (5-15) Blood Urea Nitrogen 19 mg/dL (7-18) H 18 mg/dL (7-18) Creatinine 1.1 MG/DL (0.55-1.30) 1.1 MG/DL (0.55-1.30) Estimat Glomerular Filtration Rate > 60 mL/min (>60) > 60 mL/min (>60) Glucose Level 141 MG/DL (74-106) H 134 MG/DL (74-106) H Calcium Level 7.9 MG/DL (8.5-10.1) L 8.0 MG/DL (8.5-10.1) L Total Bilirubin 0.4 MG/DL (0.2-1.0) 0.3 MG/DL (0.2-1.0) Aspartate Amino Transf (AST/SGOT) 21 U/L (15-37) 29 U/L (15-37) Alanine Aminotransferase (ALT/SGPT) 21 U/L (12-78) 26 U/L (12-78) Alkaline Phosphatase 55 U/L (46-116) 57 U/L (46-116) Total Protein 7.2 G/DL (6.4-8.2) 7.3 G/DL (6.4-8.2) Albumin 2.9 G/DL (3.4-5.0) L 2.9 G/DL (3.4-5.0) L Globulin 4.3 g/dL 4.4 g/dL Albumin/Globulin Ratio 0.7 (1.0-2.7) L 0.7 (1.0-2.7) L Pro-B-Type Natriuretic Peptide 109 pg/mL (0-125) Current Medications Medications (Trade) Dose Ordered Sig/Selvin Route PRN Reason Start Time Stop Time Status Last Admin Dose Admin Amlodipine Besylate (Norvasc) 5 mg DAILY ORAL 07/10/17 09:45 08/09/17 09:44 07/12/17 10:01 Docusate Sodium (Colace) 100 mg TWICE A DAY ORAL 07/10/17 09:45 08/09/17 09:44 07/12/17 10:00 Escitalopram Oxalate (Lexapro) 10 mg DAILY ORAL 07/10/17 09:45 08/09/17 09:44 07/12/17 10:02 Gabapentin (Neurontin) 100 mg THREE TIMES A DAY ORAL 07/10/17 09:45 08/09/17 09:44 07/12/17 10:02 Heparin Sodium (Porcine) (Heparin 5000 units/ml) 5,000 units EVERY 12 HOURS SUBQ 07/10/17 09:45 08/09/17 09:44 07/12/17 10:04 Levetiracetam (Keppra) 500 mg Q12HR ORAL 07/10/17 09:45 08/09/17 09:44 07/12/17 10:02 Methylprednisolone Sodium Succinate (Solu-MEDROL) 60 mg EVERY 6 HOURS IV 07/11/17 18:00 08/10/17 17:59 07/12/17 06:10 Morphine Sulfate (Morphine Sulfate) 1 mg EVERY 6 HOURS PRN IVP Severe Pain (Pain Scale 7-10) 07/10/17 09:00 07/17/17 08:59 07/12/17 10:06 Oseltamivir Phosphate (Tamiflu) 75 mg TWICE A DAY ORAL 07/10/17 12:15 07/15/17 12:14 07/12/17 10:05 Piperacillin Sod/ Tazobactam Sod 3.375 gm/Sodium Chloride 110 ml @ 27.5 mls/hr EVERY 8 HOURS IVPB 07/11/17 14:00 07/18/17 23:59 07/12/17 06:11 Theophylline (Paresh-Dur) 100 mg EVERY 12 HOURS ORAL 07/10/17 09:45 08/09/17 09:44 07/12/17 10:00 Magdalena Jones M.D. Jul 12, 2017 10:57
[2017-07-12 12:00] VITALS: BP 133/66
--- NOTE | 2017-07-12 12:29 | Pulmonology Progress Note ---
Assessment/Plan Problems: (1) Acute hypercapnic respiratory failure (2) Asthma exacerbation (3) Aspiration pneumonia (4) Ventriculo-peritoneal shunt status Assessment/Plan taper off bipap wbc decreasing continue abx check cultures check electrolytes. Subjective ROS Limited/Unobtainable: No Interval Events: still on bipap Allergies: Coded Allergies: No Known Allergies (Unverified , 02/19/17) Objective Last 24 Hour Vital Signs Date Time Temp Pulse Resp B/P (MAP) Pulse Ox O2 Delivery O2 Flow Rate FiO2 07/12/17 11:05 93 26 96 Facial 40 07/12/17 10:01 86 128/79 07/12/17 08:59 86 16 98 Facial 40 07/12/17 08:00 97.9 86 20 128/79 93 07/12/17 08:00 40 07/12/17 08:00 95 07/12/17 07:26 98 Bi-pap 40 07/12/17 07:26 Bi-pap 40 07/12/17 07:20 83 16 98 Facial 40 07/12/17 05:14 102 16 95 Facial 40 07/12/17 04:00 89 07/12/17 04:00 98.2 99 24 147/86 93 07/12/17 04:00 40 07/12/17 03:25 108 18 94 Facial 40 07/12/17 01:20 103 18 95 Facial 40 07/12/17 00:00 40 07/12/17 00:00 115 07/12/17 00:00 98.2 109 24 157/76 93 07/11/17 23:08 104 20 95 Facial 40 07/11/17 21:04 99 24 94 Facial 40 07/11/17 20:00 98.9 107 24 158/89 96 07/11/17 20:00 109 07/11/17 20:00 40 07/11/17 19:33 94 Bi-pap 40 07/11/17 19:33 Bi-pap 40 07/11/17 19:20 99 21 94 Facial 40 07/11/17 16:00 97.5 109 18 142/97 94 07/11/17 16:00 79 07/11/17 16:00 40 07/11/17 13:11 106 27 91 Facial 40 Intake and Output 07/11/17 07/12/17 19:00 07:00 Intake Total 420 ml 360.0 ml Output Total 150 ml 900 ml Balance 270 ml -540.0 ml Intake Oral 420 ml 250 ml IV Total 110.0 ml Output Urine Total 150 ml 900 ml # Voids 1 # Bowel Movements 1 General Appearance: WD/WN HEENT: normocephalic, atraumatic Respiratory/Chest: chest wall non-tender, lungs clear Breasts: no masses Cardiovascular: normal peripheral pulses Abdomen: normal bowel sounds, soft, non tender Extremities: no cyanosis, no clubbing Skin: no lesions Microbiology Date/Time Source Procedure Growth Status 07/09/17 20:45 Blood Blood Culture - Preliminary NO GROWTH AFTER 48 HOURS Resulted 07/09/17 20:30 Blood Blood Culture - Preliminary NO GROWTH AFTER 48 HOURS Resulted 07/11/17 14:35 Sputum Induced Gram Stain - Final Resulted 07/11/17 14:35 Sputum Induced Sputum Culture - Preliminary NO GROWTH Resulted Laboratory Tests 07/11/17 20:30: White Blood Count 13.8H, Red Blood Count 3.41L, Hemoglobin 10.4L, Hematocrit 34.3L, Mean Corpuscular Volume 101H, Mean Corpuscular Hemoglobin 30.4, Mean Corpuscular Hemoglobin Concent 30.2L, Red Cell Distribution Width 14.9H, Platelet Count 245, Mean Platelet Volume 7.6, Neutrophils (%) (Auto) , Lymphocytes (%) (Auto) , Monocytes (%) (Auto) , Eosinophils (%) (Auto) , Basophils (%) (Auto) , Differential Total Cells Counted 100, Neutrophils % ( Manual) 88H, Lymphocytes % (Manual) 9L, Monocytes % (Manual) 3, Eosinophils % ( Manual) 0, Basophils % (Manual) 0, Band Neutrophils 0, Platelet Estimate Adequate, Platelet Morphology Normal, Sodium Level 140, Potassium Level 4.4, Chloride Level 96L, Carbon Dioxide Level 42*H, Anion Gap 2L, Blood Urea Nitrogen 19H, Creatinine 1.1, Estimat Glomerular Filtration Rate > 60, Glucose Level 141H, Calcium Level 7.9L, Total Bilirubin 0.4, Aspartate Amino Transf (AST /SGOT) 21, Alanine Aminotransferase (ALT/SGPT) 21, Alkaline Phosphatase 55, Total Protein 7.2, Albumin 2.9L, Globulin 4.3, Albumin/Globulin Ratio 0.7L 07/12/17 02:50: White Blood Count 14.3H, Red Blood Count 3.39L, Hemoglobin 10.3L, Hematocrit 34.2L, Mean Corpuscular Volume 101H, Mean Corpuscular Hemoglobin 30.4, Mean Corpuscular Hemoglobin Concent 30.2L, Red Cell Distribution Width 14.8, Platelet Count 253, Mean Platelet Volume 6.7, Neutrophils (%) (Auto) , Lymphocytes (%) (Auto) , Monocytes (%) (Auto) , Eosinophils (%) (Auto) , Basophils (%) (Auto) , Sodium Level 139, Potassium Level 4.6, Chloride Level 95L , Carbon Dioxide Level 35H, Anion Gap 9, Blood Urea Nitrogen 18, Creatinine 1.1 , Estimat Glomerular Filtration Rate > 60, Glucose Level 134H, Calcium Level 8.0L, Total Bilirubin 0.3, Aspartate Amino Transf (AST/SGOT) 29, Alanine Aminotransferase (ALT/SGPT) 26, Alkaline Phosphatase 57, Total Protein 7.3, Albumin 2.9L, Globulin 4.4, Albumin/Globulin Ratio 0.7L, Pro-B-Type Natriuretic Peptide 109 Current Medications Medications (Trade) Dose Ordered Sig/Selvin Route PRN Reason Start Time Stop Time Status Last Admin Dose Admin Amlodipine Besylate (Norvasc) 5 mg DAILY ORAL 07/10/17 09:45 08/09/17 09:44 07/12/17 10:01 Docusate Sodium (Colace) 100 mg TWICE A DAY ORAL 07/10/17 09:45 08/09/17 09:44 07/12/17 10:00 Escitalopram Oxalate (Lexapro) 10 mg DAILY ORAL 07/10/17 09:45 08/09/17 09:44 07/12/17 10:02 Gabapentin (Neurontin) 100 mg THREE TIMES A DAY ORAL 07/10/17 09:45 08/09/17 09:44 07/12/17 10:02 Heparin Sodium (Porcine) (Heparin 5000 units/ml) 5,000 units EVERY 12 HOURS SUBQ 07/10/17 09:45 08/09/17 09:44 07/12/17 10:04 Levetiracetam (Keppra) 500 mg Q12HR ORAL 07/10/17 09:45 08/09/17 09:44 07/12/17 10:02 Methylprednisolone Sodium Succinate (Solu-MEDROL) 60 mg EVERY 6 HOURS IV 07/11/17 18:00 08/10/17 17:59 07/12/17 06:10 Morphine Sulfate (Morphine Sulfate) 1 mg EVERY 6 HOURS PRN IVP Severe Pain (Pain Scale 7-10) 07/10/17 09:00 07/17/17 08:59 07/12/17 10:06 Oseltamivir Phosphate (Tamiflu) 75 mg TWICE A DAY ORAL 07/10/17 12:15 07/15/17 12:14 07/12/17 10:05 Piperacillin Sod/ Tazobactam Sod 3.375 gm/Sodium Chloride 110 ml @ 27.5 mls/hr EVERY 8 HOURS IVPB 07/11/17 14:00 07/18/17 23:59 07/12/17 06:11 Theophylline (Paresh-Dur) 100 mg EVERY 12 HOURS ORAL 07/10/17 09:45 08/09/17 09:44 07/12/17 10:00 CRISTINA BRAMBILA Jul 12, 2017 12:29
--- NOTE | 2017-07-12 12:38 | Diagnostic Imaging Report ---
Indication: Reason For Exam: DYSPNEA Technique: One view of the chest Comparison: 07/09/2017 Findings: Bilateral diffuse interstitial and airspace parenchymal disease has improved somewhat, but still persists, right greater than left. There is a small amount of pleural fluid bilaterally. The heart size is normal. Right-sided ventriculoperitoneal shunt tubing is again demonstrated Impression: Improvement persistent bilateral infiltrates versus edema. Persistent small bilateral pleural effusions
[2017-07-12 16:00] VITALS: BP 134/72
--- NOTE | 2017-07-12 19:22 | Cardiology Report ---
APPROVED REPORT EKG Measurement Heart [id number] NM [id number] Sinus tachycardia Right axis deviation Right ventricular hypertrophy Abnormal ECG
--- NOTE | 2017-07-12 19:37 | General Progress Note ---
Assessment/Plan Assessment/Plan ASSESSMENT AND RECOMMENDATIONS: 1. Seizure disorder. On Keppra 2. Shortness of breath, related to underlying asthma exacerbation. On Levaquin for bacterial bronchitis. Continue per ID service. 3. Asthma exacerbation with infiltrates noted. Continue Tamiflu. 4. Elevated bicarb, potentially related to acidosis, retention of CO2. 5. Hypoglycemia, potentially related to steroids. 6. Leukocytosis related to underlying steroids. 7. Anemia secondary to chronic disease. Continue to closely monitor. 8. Continue to closely monitor the patient on malnourishment. Albumin is 2.9. Subjective Constitutional: Denies: no symptoms, chills, diaphoresis, fever, malaise, weakness, other HEENT: Denies: no symptoms, eye pain, blurred vision, tearing, double vision, ear pain, ear discharge, nose pain, nose congestion, throat pain, throat swelling, mouth pain, mouth swelling, other Cardiovascular: Denies: no symptoms, chest pain, edema, irregular heart rate, lightheadedness, palpitations, syncope, other Respiratory: Denies: no symptoms, cough, orthopnea, shortness of breath, SOB with excertion, SOB at rest, sputum, stridor, wheezing, other Gastrointestinal/Abdominal: Denies: no symptoms, abdomen distended, abdominal pain, black stools, tarry stools, blood in stool, constipated, diarrhea, difficulty swallowing, nausea, poor appetite, poor fluid intake, rectal bleeding , vomiting, other Genitourinary: Denies: no symptoms, burning, discharge, frequency, flank pain, hematuria, incontinence, pain, urgency, other Neurologic/Psychiatric: Denies: no symptoms, anxiety, depressed, emotional problems, headache, numbness, paresthesia, pre-existing deficit, seizure, tingling, tremors, weakness, other Endocrine: Denies: no symptoms, excessive sweating, flushing, intolerance to cold, intolerance to heat, increased hunger, increased thirst, increased urine, unexplained weight gain, unexplained weight loss, other Hematologic/Lymphatic: Denies: no symptoms, anemia, easy bleeding, easy bruising, other Allergies: Coded Allergies: No Known Allergies (Unverified , 02/19/17) Subjective on Bipap Objective Last 24 Hour Vital Signs Date Time Temp Pulse Resp B/P (MAP) Pulse Ox O2 Delivery O2 Flow Rate FiO2 1/3/18 16:00 93 07/12/17 16:00 97.9 109 20 134/72 95 07/12/17 12:00 98.2 93 20 133/66 93 07/12/17 12:00 88 07/12/17 11:05 93 26 96 Facial 40 07/12/17 10:01 86 128/79 07/12/17 08:59 86 16 98 Facial 40 07/12/17 08:00 97.9 86 20 128/79 93 07/12/17 08:00 40 07/12/17 08:00 95 07/12/17 07:26 98 Bi-pap 40 07/12/17 07:26 Bi-pap 40 07/12/17 07:20 83 16 98 Facial 40 07/12/17 05:14 102 16 95 Facial 40 07/12/17 04:00 89 07/12/17 04:00 98.2 99 24 147/86 93 07/12/17 04:00 40 07/12/17 03:25 108 18 94 Facial 40 07/12/17 01:20 103 18 95 Facial 40 07/12/17 00:00 40 07/12/17 00:00 115 07/12/17 00:00 98.2 109 24 157/76 93 07/11/17 23:08 104 20 95 Facial 40 07/11/17 21:04 99 24 94 Facial 40 07/11/17 20:00 98.9 107 24 158/89 96 07/11/17 20:00 109 07/11/17 20:00 40 07/11/17 19:33 94 Bi-pap 40 07/11/17 19:33 Bi-pap 40 Intake and Output 07/11/17 07/12/17 19:00 07:00 Intake Total 420 ml 360.0 ml Output Total 150 ml 900 ml Balance 270 ml -540.0 ml Intake Oral 420 ml 250 ml IV Total 110.0 ml Output Urine Total 150 ml 900 ml # Voids 1 # Bowel Movements 1 Laboratory Tests 07/11/17 20:30: White Blood Count 13.8H, Red Blood Count 3.41L, Hemoglobin 10.4L, Hematocrit 34.3L, Mean Corpuscular Volume 101H, Mean Corpuscular Hemoglobin 30.4, Mean Corpuscular Hemoglobin Concent 30.2L, Red Cell Distribution Width 14.9H, Platelet Count 245, Mean Platelet Volume 7.6, Neutrophils (%) (Auto) , Lymphocytes (%) (Auto) , Monocytes (%) (Auto) , Eosinophils (%) (Auto) , Basophils (%) (Auto) , Differential Total Cells Counted 100, Neutrophils % ( Manual) 88H, Lymphocytes % (Manual) 9L, Monocytes % (Manual) 3, Eosinophils % ( Manual) 0, Basophils % (Manual) 0, Band Neutrophils 0, Platelet Estimate Adequate, Platelet Morphology Normal, Sodium Level 140, Potassium Level 4.4, Chloride Level 96L, Carbon Dioxide Level 42*H, Anion Gap 2L, Blood Urea Nitrogen 19H, Creatinine 1.1, Estimat Glomerular Filtration Rate > 60, Glucose Level 141H, Calcium Level 7.9L, Total Bilirubin 0.4, Aspartate Amino Transf (AST /SGOT) 21, Alanine Aminotransferase (ALT/SGPT) 21, Alkaline Phosphatase 55, Total Protein 7.2, Albumin 2.9L, Globulin 4.3, Albumin/Globulin Ratio 0.7L 07/12/17 02:50: White Blood Count 14.3H, Red Blood Count 3.39L, Hemoglobin 10.3L, Hematocrit 34.2L, Mean Corpuscular Volume 101H, Mean Corpuscular Hemoglobin 30.4, Mean Corpuscular Hemoglobin Concent 30.2L, Red Cell Distribution Width 14.8, Platelet Count 253, Mean Platelet Volume 6.7, Neutrophils (%) (Auto) , Lymphocytes (%) (Auto) , Monocytes (%) (Auto) , Eosinophils (%) (Auto) , Basophils (%) (Auto) , Sodium Level 139, Potassium Level 4.6, Chloride Level 95L , Carbon Dioxide Level 35H, Anion Gap 9, Blood Urea Nitrogen 18, Creatinine 1.1 , Estimat Glomerular Filtration Rate > 60, Glucose Level 134H, Calcium Level 8.0L, Total Bilirubin 0.3, Aspartate Amino Transf (AST/SGOT) 29, Alanine Aminotransferase (ALT/SGPT) 26, Alkaline Phosphatase 57, Total Protein 7.3, Albumin 2.9L, Globulin 4.4, Albumin/Globulin Ratio 0.7L, Pro-B-Type Natriuretic Peptide 109 Height (Feet): 5 Height (Inches): 5.00 Weight (Pounds): 250 General Appearance: no apparent distress EENT: pharynx normal Neck: normal alignment Cardiovascular: regular rhythm Respiratory/Chest: chest wall non-tender Abdomen: non tender Extremities: non-tender Edema: 1+ Leg (L), 1+ Leg (R) Edema: mild edema Neurologic: alert Uhce Leon Jul 12, 2017 19:37
[2017-07-12 20:00] VITALS: BP 134/87
[2017-07-12] MEDS ORDERED: Albuterol/Ipratropium 3ml neb HHN PRN (21:15)
[2017-07-13] VITALS: BP 147/85
[2017-07-13] MEDS: Solu-MEDROL 125mg Inj IV SCH ×3 (00:04→11:41)
[2017-07-13] MEDS: Morphine Sulfate 2mg/ml Inj IVP PRN ×3 (00:44→21:00)
[2017-07-13 04:00] VITALS: BP 155/90
[2017-07-13] MEDS: Piperacillin/Tazobactam 3.375 GM in NS 110 ML IVPB SCH ×3 (05:32→21:01)
[2017-07-13 06:32] LABS: MEAN CORPUSCULAR VOLUME 101 FL (80-99); PLATELET COUNT 271 K/UL (150-450); RED BLOOD COUNT 3.16 M/UL (4.20-5.40); RED CELL DISTRIBUTION WIDTH 15.3 % (11.6-14.8)
[2017-07-13 07:10] LABS: ALANINE AMINOTRANSFERASE 22 U/L (12-78); ALBUMIN 2.9 G/DL (3.4-5.0); ALBUMIN/GLOBULIN RATIO 0.7 (1.0-2.7); ALKALINE PHOSPHATASE 47 U/L (46-116); ANION GAP 2 mmol/L (5-15); ASPARTATE AMINO TRANSFERASE 20 U/L (15-37); BILIRUBIN,TOTAL 0.4 MG/DL (0.2-1.0); BLOOD UREA NITROGEN 15 mg/dL (7-18); CALCIUM 7.9 MG/DL (8.5-10.1); CARBON DIOXIDE 40 MMOL/L (21-32); CHLORIDE 99 MMOL/L (98-107); CREATININE 0.8 MG/DL (0.55-1.30); POTASSIUM 4.4 MMOL/L (3.5-5.1); SODIUM 141 MMOL/L (136-145)
[2017-07-13 08:00] VITALS: BP 175/98
[2017-07-13] MEDS: Heparin 5000 units/ml inj SUBQ SCH ×2 (09:21→21:00)
[2017-07-13] MEDS: Docusate 100mg cap ORAL SCH ×2 (09:21→18:05)
[2017-07-13] MEDS: Theophylline ER 100mg ORAL SCH ×2 (09:21→21:00)
[2017-07-13] MEDS: Oseltamivir 75mg cap ORAL SCH ×2 (09:21→18:05)
--- NOTE | 2017-07-13 10:30 | Diagnostic Imaging Report ---
Indication: Dyspnea Technique: One view of the chest Comparison: 07/12/2017 Findings: Right greater than left patchy and nodular airspace opacities are again demonstrated, unchanged. There is probably a small amount of fluid along the major fissure. Right-sided ventriculoperitoneal shunt is again demonstrated. The pleural spaces are grossly clear Impression: Unchanged, over one day, findings as above.
[2017-07-13 12:00] VITALS: BP 158/102
--- NOTE | 2017-07-13 12:52 | Pulmonology Progress Note ---
Assessment/Plan Problems: (1) Acute hypercapnic respiratory failure (2) Asthma exacerbation (3) Aspiration pneumonia (4) Ventriculo-peritoneal shunt status Assessment/Plan taper off bipap wbc decreasing decrease sterids c continue abx check cultures check electrolytes. cxr reviewed, much better med/surg if tolerated bipap Subjective ROS Limited/Unobtainable: No Interval Events: no short of breath Constitutional: Reports: no symptoms HEENT: Repors: no symptoms Respiratory: Reports: no symptoms Allergies: Coded Allergies: No Known Allergies (Unverified , 02/19/17) Objective Last 24 Hour Vital Signs Date Time Temp Pulse Resp B/P (MAP) Pulse Ox O2 Delivery O2 Flow Rate FiO2 07/13/17 10:51 100 26 95 Full Face 50 07/13/17 09:33 98 29 95 Full Face 50 07/13/17 09:20 93 175/98 07/13/17 08:00 97.9 93 16 175/98 95 Bi-pap 50 07/13/17 08:00 96 07/13/17 07:40 96 Bi-pap 50 07/13/17 07:40 Bi-pap 50 07/13/17 07:36 101 18 96 Full Face 50 07/13/17 04:00 50 07/13/17 04:00 97.3 89 18 155/90 98 Bi-pap 50 07/13/17 04:00 90 07/13/17 00:00 50 07/13/17 00:00 92 07/13/17 00:00 97.7 95 18 147/85 98 Bi-pap 50 07/12/17 23:06 89 24 93 Full Face 50 07/12/17 21:55 Bi-pap 40 07/12/17 21:55 97 Bi-pap 40 07/12/17 20:00 97.3 104 20 134/87 92 Simple Mask 5.0 07/12/17 20:00 118 07/12/17 16:00 93 07/12/17 16:00 97.9 109 20 134/72 95 Intake and Output 07/12/17 07/13/17 19:00 07:00 Intake Total 480 ml 377.5 ml Output Total 4 ml 500 ml Balance 476 ml -122.5 ml Intake Oral 480 ml 240 ml IV Total 137.5 ml Output Urine Total 4 ml 500 ml # Voids 4 # Bowel Movements 1 2 General Appearance: WD/WN HEENT: normocephalic, anicteric Respiratory/Chest: lungs clear Breasts: no masses Abdomen: normal bowel sounds, soft, non tender Skin: no rash Microbiology Date/Time Source Procedure Growth Status 07/11/17 14:35 Sputum Induced Gram Stain - Final Complete 07/11/17 14:35 Sputum Induced Sputum Culture - Final NORMAL UPPER RESPIRATORY KARINE PRESENT Complete Laboratory Tests 07/13/17 03:45: White Blood Count 16.0H, Red Blood Count 3.16L, Hemoglobin 10.0L, Hematocrit 32.0L, Mean Corpuscular Volume 101H, Mean Corpuscular Hemoglobin 31.8H, Mean Corpuscular Hemoglobin Concent 31.4L, Red Cell Distribution Width 15.3H, Platelet Count 271, Mean Platelet Volume 7.2, Neutrophils (%) (Auto) , Lymphocytes (%) (Auto) , Monocytes (%) (Auto) , Eosinophils (%) (Auto) , Basophils (%) (Auto) , Differential Total Cells Counted 100, Neutrophils % ( Manual) 86H, Lymphocytes % (Manual) 8L, Monocytes % (Manual) 6, Eosinophils % ( Manual) 0, Basophils % (Manual) 0, Band Neutrophils 0, Platelet Estimate Adequate, Platelet Morphology Normal, Hypochromasia 1+, Anisocytosis 1+, Macrocytosis 1+, Sodium Level 141, Potassium Level 4.4, Chloride Level 99, Carbon Dioxide Level 40H, Anion Gap 2L, Blood Urea Nitrogen 15, Creatinine 0.8, Estimat Glomerular Filtration Rate > 60, Glucose Level 107H, Calcium Level 7.9L , Total Bilirubin 0.4, Aspartate Amino Transf (AST/SGOT) 20, Alanine Aminotransferase (ALT/SGPT) 22, Alkaline Phosphatase 47, Pro-B-Type Natriuretic Peptide 141H, Total Protein 7.2, Albumin 2.9L, Globulin 4.3, Albumin/Globulin Ratio 0.7L Current Medications Medications (Trade) Dose Ordered Sig/Selvin Route PRN Reason Start Time Stop Time Status Last Admin Dose Admin Albuterol/ Ipratropium (Albuterol/ Ipratropium) 3 ml Q4H PRN HHN Shortness of Breath 07/12/17 21:15 07/17/17 21:14 Amlodipine Besylate (Norvasc) 5 mg DAILY ORAL 07/10/17 09:45 08/09/17 09:44 07/13/17 09:20 Docusate Sodium (Colace) 100 mg TWICE A DAY ORAL 07/10/17 09:45 08/09/17 09:44 07/13/17 09:21 Escitalopram Oxalate (Lexapro) 10 mg DAILY ORAL 07/10/17 09:45 08/09/17 09:44 07/13/17 09:20 Gabapentin (Neurontin) 100 mg THREE TIMES A DAY ORAL 07/10/17 09:45 08/09/17 09:44 07/13/17 09:20 Heparin Sodium (Porcine) (Heparin 5000 units/ml) 5,000 units EVERY 12 HOURS SUBQ 07/10/17 09:45 08/09/17 09:44 07/13/17 09:21 Levetiracetam (Keppra) 500 mg Q12HR ORAL 07/10/17 09:45 08/09/17 09:44 07/13/17 09:21 Methylprednisolone Sodium Succinate (Solu-MEDROL) 60 mg EVERY 6 HOURS IV 07/11/17 18:00 08/10/17 17:59 07/13/17 11:41 Morphine Sulfate (Morphine Sulfate) 1 mg EVERY 6 HOURS PRN IVP Severe Pain (Pain Scale 7-10) 07/10/17 09:00 07/17/17 08:59 07/13/17 11:16 Oseltamivir Phosphate (Tamiflu) 75 mg TWICE A DAY ORAL 07/10/17 12:15 07/15/17 12:14 07/13/17 09:21 Piperacillin Sod/ Tazobactam Sod 3.375 gm/Sodium Chloride 110 ml @ 27.5 mls/hr EVERY 8 HOURS IVPB 07/11/17 14:00 07/18/17 23:59 07/13/17 05:32 Theophylline (Paresh-Dur) 100 mg EVERY 12 HOURS ORAL 07/10/17 09:45 08/09/17 09:44 07/13/17 09:21 CRISTINA BRAMBILA Jul 13, 2017 12:52
[2017-07-13 16:00] VITALS: BP 174/103
--- NOTE | 2017-07-13 17:55 | Infectious Diseases Prog Note ---
Assessment/Plan Assessment/Plan Assessment: Asthma exacerbation- r/o Influenza, r/o bacterial bronchitis-possible PNA -CXR 07/13: Right greater than left patchy and nodular airspace opacities are again demonstrated, unchanged. There is probably a small amount of fluid along the major fissure. -CXR: Bilateral diffuse infiltrates versus edema -sp cx normal tristen Leukocytosis, worsening (on steroids) -Bcx NTD Plan: -Continue PO levaquin #5/5-7 for asthma exacerbation and possible bacterial bronchitis/PNA -Continue Empiric Tamiflu #4/5 -f/u cx -Monitor CBC/BMP, temperatures Thank you for this consultation. Will continue to follow along with you. Discussed with RN. Subjective Allergies: Coded Allergies: No Known Allergies (Unverified , 02/19/17) Subjective afebrile on 5L simple mask today on high dose sterodis leukocytosis worse cx NTD Objective Vital Signs Last 24 Hour Vital Signs Date Time Temp Pulse Resp B/P (MAP) Pulse Ox O2 Delivery O2 Flow Rate FiO2 07/13/17 16:00 96 07/13/17 16:00 98.2 96 22 174/103 94 Simple Mask 5.0 07/13/17 12:00 97.9 95 24 158/102 96 Bi-pap 50 07/13/17 12:00 86 07/13/17 10:51 100 26 95 Full Face 50 07/13/17 09:54 96 Simple Mask 5.0 07/13/17 09:54 Simple Mask 5.0 07/13/17 09:33 98 29 95 Full Face 50 07/13/17 09:20 93 175/98 07/13/17 08:00 97.9 93 16 175/98 95 Bi-pap 50 07/13/17 08:00 96 07/13/17 07:40 96 Bi-pap 50 07/13/17 07:40 Bi-pap 50 07/13/17 07:36 101 18 96 Full Face 50 07/13/17 04:00 50 07/13/17 04:00 97.3 89 18 155/90 98 Bi-pap 50 07/13/17 04:00 90 07/13/17 00:00 50 07/13/17 00:00 92 07/13/17 00:00 97.7 95 18 147/85 98 Bi-pap 50 07/12/17 23:06 89 24 93 Full Face 50 07/12/17 21:55 Bi-pap 40 07/12/17 21:55 97 Bi-pap 40 07/12/17 20:00 97.3 104 20 134/87 92 Simple Mask 5.0 07/12/17 20:00 118 Height (Feet): 5 Height (Inches): 5.00 Weight (Pounds): 250 Objective General Appearance: normal inspection, alert, non-toxic, bipap mask on placed HEENT: normocephalic, atraumatic bilateral eye PERRL, bilateral eye EOMI Neck: supple Respiratory: wheezing Cardiovascular regular rate, rhythm, no edema Gastrointestinal: normal inspection, normal bowel sounds, non tender, soft, no mass, no peritonitis, non-distended, no guarding, no hernia, no pulsatile mass Genitourinary: no CVA tenderness Musculoskeletal: normal inspection, back normal, normal range of motion, no calf tenderness Neurologic: normal inspection, alert, oriented x3, responsive, goring cutter III-XII nml as tested, motor strength/tone normal, cerebellar normal, normal gait, speech normal Skin: normal inspection, normal color, no rash Lymphatic: normal inspection, no adenopathy. Microbiology Date/Time Source Procedure Growth Status 07/11/17 14:35 Sputum Induced Gram Stain - Final Complete 07/11/17 14:35 Sputum Induced Sputum Culture - Final NORMAL UPPER RESPIRATORY TRISTEN PRESENT Complete Laboratory Tests Test 07/13/17 03:45 White Blood Count 16.0 K/UL (4.8-10.8) H Red Blood Count 3.16 M/UL (4.20-5.40) L Hemoglobin 10.0 G/DL (12.0-16.0) L Hematocrit 32.0 % (37.0-47.0) L Mean Corpuscular Volume 101 FL (80-99) H Mean Corpuscular Hemoglobin 31.8 PG (27.0-31.0) H Mean Corpuscular Hemoglobin Concent 31.4 G/DL (32.0-36.0) L Red Cell Distribution Width 15.3 % (11.6-14.8) H Platelet Count 271 K/UL (150-450) Mean Platelet Volume 7.2 FL (6.5-10.1) Neutrophils (%) (Auto) % (45.0-75.0) Lymphocytes (%) (Auto) % (20.0-45.0) Monocytes (%) (Auto) % (1.0-10.0) Eosinophils (%) (Auto) % (0.0-3.0) Basophils (%) (Auto) % (0.0-2.0) Differential Total Cells Counted 100 Neutrophils % (Manual) 86 % (45-75) H Lymphocytes % (Manual) 8 % (20-45) L Monocytes % (Manual) 6 % (1-10) Eosinophils % (Manual) 0 % (0-3) Basophils % (Manual) 0 % (0-2) Band Neutrophils 0 % (0-8) Platelet Estimate Adequate Platelet Morphology Normal Hypochromasia 1+ Anisocytosis 1+ Macrocytosis 1+ Sodium Level 141 MMOL/L (136-145) Potassium Level 4.4 MMOL/L (3.5-5.1) Chloride Level 99 MMOL/L (98-107) Carbon Dioxide Level 40 MMOL/L (21-32) H Anion Gap 2 mmol/L (5-15) L Blood Urea Nitrogen 15 mg/dL (7-18) Creatinine 0.8 MG/DL (0.55-1.30) Estimat Glomerular Filtration Rate > 60 mL/min (>60) Glucose Level 107 MG/DL (74-106) H Calcium Level 7.9 MG/DL (8.5-10.1) L Total Bilirubin 0.4 MG/DL (0.2-1.0) Aspartate Amino Transf (AST/SGOT) 20 U/L (15-37) Alanine Aminotransferase (ALT/SGPT) 22 U/L (12-78) Alkaline Phosphatase 47 U/L (46-116) Pro-B-Type Natriuretic Peptide 141 pg/mL (0-125) H Total Protein 7.2 G/DL (6.4-8.2) Albumin 2.9 G/DL (3.4-5.0) L Globulin 4.3 g/dL Albumin/Globulin Ratio 0.7 (1.0-2.7) L Current Medications Medications (Trade) Dose Ordered Sig/Selvin Route PRN Reason Start Time Stop Time Status Last Admin Dose Admin Albuterol/ Ipratropium (Albuterol/ Ipratropium) 3 ml Q4H PRN HHN Shortness of Breath 07/12/17 21:15 07/17/17 21:14 Amlodipine Besylate (Norvasc) 5 mg DAILY ORAL 07/10/17 09:45 08/09/17 09:44 07/13/17 09:20 Docusate Sodium (Colace) 100 mg TWICE A DAY ORAL 07/10/17 09:45 08/09/17 09:44 07/13/17 09:21 Escitalopram Oxalate (Lexapro) 10 mg DAILY ORAL 07/10/17 09:45 08/09/17 09:44 07/13/17 09:20 Gabapentin (Neurontin) 100 mg THREE TIMES A DAY ORAL 07/10/17 09:45 08/09/17 09:44 07/13/17 13:39 Heparin Sodium (Porcine) (Heparin 5000 units/ml) 5,000 units EVERY 12 HOURS SUBQ 07/10/17 09:45 08/09/17 09:44 07/13/17 09:21 Levetiracetam (Keppra) 500 mg Q12HR ORAL 07/10/17 09:45 08/09/17 09:44 07/13/17 09:21 Methylprednisolone Sodium Succinate (Solu-MEDROL) 60 mg DAILY IV 07/14/17 09:00 08/10/17 17:59 Morphine Sulfate (Morphine Sulfate) 1 mg EVERY 6 HOURS PRN IVP Severe Pain (Pain Scale 7-10) 07/10/17 09:00 07/17/17 08:59 07/13/17 11:16 Oseltamivir Phosphate (Tamiflu) 75 mg TWICE A DAY ORAL 07/10/17 12:15 07/15/17 12:14 07/13/17 09:21 Piperacillin Sod/ Tazobactam Sod 3.375 gm/Sodium Chloride 110 ml @ 27.5 mls/hr EVERY 8 HOURS IVPB 07/11/17 14:00 07/18/17 23:59 07/13/17 13:39 Theophylline (Paresh-Dur) 100 mg EVERY 12 HOURS ORAL 07/10/17 09:45 08/09/17 09:44 07/13/17 09:21 Magdalena Jones M.D. Jul 13, 2017 17:55
--- NOTE | 2017-07-13 18:39 | General Progress Note ---
Assessment/Plan Assessment/Plan ASSESSMENT AND RECS: 1. Anemia secondary to chronic disease. Continue to closely monitor. --> anemia w/u has been ordered 2. Shortness of breath, related to underlying asthma exacerbation. On Levaquin for bacterial bronchitis. Continue per ID service. --> on bipap, pulm following 3. Asthma exacerbation with infiltrates noted. Continue Tamiflu. 4. Elevated bicarb, potentially related to acidosis, retention of CO2. 5. Hypoglycemia, potentially related to steroids. 6. Leukocytosis related to underlying steroids. 7. Seizure disorder, currently stable 8. Continue to closely monitor the patient on malnourishment. Albumin is 2.9. Subjective Constitutional: Denies: no symptoms, chills, diaphoresis, fever, malaise, weakness, other HEENT: Denies: no symptoms, eye pain, blurred vision, tearing, double vision, ear pain, ear discharge, nose pain, nose congestion, throat pain, throat swelling, mouth pain, mouth swelling, other Cardiovascular: Denies: no symptoms, chest pain, edema, irregular heart rate, lightheadedness, palpitations, syncope, other Respiratory: Denies: no symptoms, cough, orthopnea, shortness of breath, SOB with excertion, SOB at rest, sputum, stridor, wheezing, other Gastrointestinal/Abdominal: Denies: no symptoms, abdomen distended, abdominal pain, black stools, tarry stools, blood in stool, constipated, diarrhea, difficulty swallowing, nausea, poor appetite, poor fluid intake, rectal bleeding , vomiting, other Genitourinary: Denies: no symptoms, burning, discharge, frequency, flank pain, hematuria, incontinence, pain, urgency, other Neurologic/Psychiatric: Denies: no symptoms, anxiety, depressed, emotional problems, headache, numbness, paresthesia, pre-existing deficit, seizure, tingling, tremors, weakness, other Endocrine: Denies: no symptoms, excessive sweating, flushing, intolerance to cold, intolerance to heat, increased hunger, increased thirst, increased urine, unexplained weight gain, unexplained weight loss, other Hematologic/Lymphatic: Denies: no symptoms, anemia, easy bleeding, easy bruising, other Allergies: Coded Allergies: No Known Allergies (Unverified , 02/19/17) Subjective on bipap, is feeling somewhat better Objective Last 24 Hour Vital Signs Date Time Temp Pulse Resp B/P (MAP) Pulse Ox O2 Delivery O2 Flow Rate FiO2 07/13/17 16:00 5.0 07/13/17 16:00 96 07/13/17 16:00 98.2 96 22 174/103 94 Simple Mask 5.0 07/13/17 12:00 50 07/13/17 12:00 97.9 95 24 158/102 96 Bi-pap 50 07/13/17 12:00 86 07/13/17 10:51 100 26 95 Full Face 50 07/13/17 09:54 96 Simple Mask 5.0 07/13/17 09:54 Simple Mask 5.0 07/13/17 09:33 98 29 95 Full Face 50 07/13/17 09:20 93 175/98 07/13/17 08:00 97.9 93 16 175/98 95 Bi-pap 50 07/13/17 08:00 96 07/13/17 08:00 50 07/13/17 07:40 96 Bi-pap 50 07/13/17 07:40 Bi-pap 50 07/13/17 07:36 101 18 96 Full Face 50 07/13/17 04:00 50 07/13/17 04:00 97.3 89 18 155/90 98 Bi-pap 50 07/13/17 04:00 90 07/13/17 00:00 50 07/13/17 00:00 92 07/13/17 00:00 97.7 95 18 147/85 98 Bi-pap 50 07/12/17 23:06 89 24 93 Full Face 50 07/12/17 21:55 Bi-pap 40 07/12/17 21:55 97 Bi-pap 40 07/12/17 20:00 97.3 104 20 134/87 92 Simple Mask 5.0 07/12/17 20:00 118 Intake and Output 07/12/17 07/13/17 19:00 07:00 Intake Total 480 ml 377.5 ml Output Total 4 ml 500 ml Balance 476 ml -122.5 ml Intake Oral 480 ml 240 ml IV Total 137.5 ml Output Urine Total 4 ml 500 ml # Voids 4 # Bowel Movements 1 2 Laboratory Tests 07/13/17 03:45: White Blood Count 16.0H, Red Blood Count 3.16L, Hemoglobin 10.0L, Hematocrit 32.0L, Mean Corpuscular Volume 101H, Mean Corpuscular Hemoglobin 31.8H, Mean Corpuscular Hemoglobin Concent 31.4L, Red Cell Distribution Width 15.3H, Platelet Count 271, Mean Platelet Volume 7.2, Neutrophils (%) (Auto) , Lymphocytes (%) (Auto) , Monocytes (%) (Auto) , Eosinophils (%) (Auto) , Basophils (%) (Auto) , Differential Total Cells Counted 100, Neutrophils % ( Manual) 86H, Lymphocytes % (Manual) 8L, Monocytes % (Manual) 6, Eosinophils % ( Manual) 0, Basophils % (Manual) 0, Band Neutrophils 0, Platelet Estimate Adequate, Platelet Morphology Normal, Hypochromasia 1+, Anisocytosis 1+, Macrocytosis 1+, Sodium Level 141, Potassium Level 4.4, Chloride Level 99, Carbon Dioxide Level 40H, Anion Gap 2L, Blood Urea Nitrogen 15, Creatinine 0.8, Estimat Glomerular Filtration Rate > 60, Glucose Level 107H, Calcium Level 7.9L , Total Bilirubin 0.4, Aspartate Amino Transf (AST/SGOT) 20, Alanine Aminotransferase (ALT/SGPT) 22, Alkaline Phosphatase 47, Pro-B-Type Natriuretic Peptide 141H, Total Protein 7.2, Albumin 2.9L, Globulin 4.3, Albumin/Globulin Ratio 0.7L Height (Feet): 5 Height (Inches): 5.00 Weight (Pounds): 250 General Appearance: no apparent distress EENT: TMs normal Neck: normal alignment Cardiovascular: normal rate Respiratory/Chest: normal breath sounds Abdomen: non tender Genitourinary/Rectal: heme negative stool Extremities: normal inspection Uche Leon Jul 13, 2017 18:39
[2017-07-13 20:00] VITALS: BP 134/67
[2017-07-13 20:17] LABS: FERRITIN 74 NG/ML (8-388)
[2017-07-13 20:31] LABS: % IRON SATURATION 19 % (15-50); IRON 59 ug/dL (50-175); TOTAL IRON BINDING CAPACITY 312 ug/dL (250-450)
[2017-07-14] VITALS: BP 149/94
[2017-07-14] MEDS: Morphine Sulfate 2mg/ml Inj IVP PRN ×3 (01:37→20:49)
[2017-07-14 04:00] VITALS: BP 158/103
[2017-07-14] MEDS: Piperacillin/Tazobactam 3.375 GM in NS 110 ML IVPB SCH ×3 (05:37→22:34)
[2017-07-14 08:00] VITALS: BP 152/98
[2017-07-14] MEDS ORDERED: Morphine Sulfate 2mg/ml Inj IVP PRN ×2 (09:00→18:00)
[2017-07-14] MEDS ORDERED: Solu-MEDROL 125mg Inj IV SCH (09:00)
[2017-07-14] MEDS: Theophylline ER 100mg ORAL SCH ×2 (09:09→22:04)
[2017-07-14] MEDS: Oseltamivir 75mg cap ORAL SCH ×3 (09:10→18:00)
[2017-07-14] MEDS: Docusate 100mg cap ORAL SCH ×3 (09:10→18:00)
[2017-07-14] MEDS: Heparin 5000 units/ml inj SUBQ SCH ×2 (09:12→22:06)
[2017-07-14] MEDS ORDERED: Heparin 5000 units/ml inj SUBQ SCH ×2 (09:45→21:00)
[2017-07-14] MEDS ORDERED: Docusate 100mg cap ORAL SCH ×2 (09:45→18:00)
[2017-07-14] MEDS ORDERED: Theophylline ER 100mg ORAL SCH ×2 (09:45→21:00)
--- NOTE | 2017-07-14 11:46 | Infectious Diseases Prog Note ---
Assessment/Plan Assessment/Plan Assessment: Asthma exacerbation- r/o Influenza, r/o bacterial bronchitis-possible PNA -CXR 07/13: Right greater than left patchy and nodular airspace opacities are again demonstrated, unchanged. There is probably a small amount of fluid along the major fissure. -CXR: Bilateral diffuse infiltrates versus edema -sp cx normal tristen Leukocytosis, worsening (on steroids), NO CBC today -Bcx NTD Plan: -Noticed switched PO Levaquin to Zosyn per primary team , continue Zosyn #4 ( abx d#6/7) for asthma exacerbation and possible bacterial bronchitis/PNA and continue Empiric Tamiflu #5/5 -1/2 SP Leaquin #3 -f/u cx -Monitor CBC/BMP, temperatures; trend WBC -aspiration precautions Thank you for this consultation. Will continue to follow along with you. Discussed with RN. Subjective Allergies: Coded Allergies: No Known Allergies (Unverified , 02/19/17) Subjective afebrile on venturi mask no cbc today Objective Vital Signs Last 24 Hour Vital Signs Date Time Temp Pulse Resp B/P (MAP) Pulse Ox O2 Delivery O2 Flow Rate FiO2 07/14/17 09:13 104 152/98 07/14/17 08:00 97.9 104 20 152/98 93 Venturi Mask 14.0 55 07/14/17 08:00 14.0 55 07/14/17 08:00 101 07/14/17 05:17 55 07/14/17 04:00 98.3 96 24 158/103 96 Simple Mask 5.0 07/14/17 04:00 100 07/14/17 02:07 98.3 07/14/17 00:00 98.3 103 22 149/94 97 Simple Mask 5.0 07/14/17 00:00 107 07/14/17 00:00 50 07/13/17 22:48 98 17 96 Full Face 60 07/13/17 21:26 100 Simple Mask 15.0 07/13/17 21:26 Non-Rebreather 15.0 07/13/17 20:00 98.4 100 22 134/67 97 Simple Mask 5.0 07/13/17 20:00 109 07/13/17 16:00 5.0 07/13/17 16:00 96 07/13/17 16:00 98.2 96 22 174/103 94 Simple Mask 5.0 07/13/17 12:00 50 07/13/17 12:00 97.9 95 24 158/102 96 Bi-pap 50 07/13/17 12:00 86 Height (Feet): 5 Height (Inches): 5.00 Weight (Pounds): 250 Objective General Appearance: normal inspection, alert, non-toxic, bipap mask on placed HEENT: normocephalic, atraumatic bilateral eye PERRL, bilateral eye EOMI Neck: supple Respiratory: wheezing Cardiovascular regular rate, rhythm, no edema Gastrointestinal: normal inspection, normal bowel sounds, non tender, soft, no mass, no peritonitis, non-distended, no guarding, no hernia, no pulsatile mass Genitourinary: no CVA tenderness Musculoskeletal: normal inspection, back normal, normal range of motion, no calf tenderness Neurologic: normal inspection, alert, oriented x3, responsive, associate material handler III-XII nml as tested, motor strength/tone normal, cerebellar normal, normal gait, speech normal Skin: normal inspection, normal color, no rash Lymphatic: normal inspection, no adenopathy. Microbiology Date/Time Source Procedure Growth Status 07/11/17 14:35 Sputum Induced Gram Stain - Final Complete 07/11/17 14:35 Sputum Induced Sputum Culture - Final NORMAL UPPER RESPIRATORY TRISTEN PRESENT Complete Laboratory Tests Test 07/13/17 19:10 Reticulocyte Count 4.7 % (0.0-2.0) H Fibrinogen 509 mg/dL (200-400) H Iron Level 59 ug/dL (50-175) Total Iron Binding Capacity 312 ug/dL (250-450) Percent Iron Saturation 19 % (15-50) Unsaturated Iron Binding 253 ug/dL (112-346) Ferritin 74 NG/ML (8-388) Vitamin B12 Level 608 PG/ML (193-986) Folate 15.5 NG/ML (8.6-58.9) Thyroid Stimulating Hormone (TSH) 0.486 uiU/mL (0.358-3.740) Current Medications Medications (Trade) Dose Ordered Sig/Selvin Route PRN Reason Start Time Stop Time Status Last Admin Dose Admin Albuterol/ Ipratropium (Albuterol/ Ipratropium) 3 ml Q4H PRN HHN Shortness of Breath 07/12/17 21:15 07/17/17 21:14 Amlodipine Besylate (Norvasc) 5 mg DAILY ORAL 07/10/17 09:45 08/09/17 09:44 07/14/17 09:13 Docusate Sodium (Colace) 100 mg TWICE A DAY ORAL 07/10/17 09:45 08/09/17 09:44 07/14/17 09:10 Escitalopram Oxalate (Lexapro) 10 mg DAILY ORAL 07/10/17 09:45 08/09/17 09:44 07/14/17 09:09 Gabapentin (Neurontin) 100 mg THREE TIMES A DAY ORAL 07/10/17 09:45 08/09/17 09:44 07/14/17 09:09 Heparin Sodium (Porcine) (Heparin 5000 units/ml) 5,000 units EVERY 12 HOURS SUBQ 07/10/17 09:45 08/09/17 09:44 07/14/17 09:12 Levetiracetam (Keppra) 500 mg Q12HR ORAL 07/10/17 09:45 08/09/17 09:44 07/14/17 09:10 Methylprednisolone Sodium Succinate (Solu-MEDROL) 60 mg DAILY IV 07/14/17 09:00 08/10/17 17:59 07/14/17 09:09 Morphine Sulfate (Morphine Sulfate) 1 mg EVERY 6 HOURS PRN IVP Severe Pain (Pain Scale 7-10) 07/10/17 09:00 07/17/17 08:59 07/14/17 01:37 Oseltamivir Phosphate (Tamiflu) 75 mg TWICE A DAY ORAL 07/10/17 12:15 07/15/17 12:14 07/14/17 09:10 Piperacillin Sod/ Tazobactam Sod 3.375 gm/Sodium Chloride 110 ml @ 27.5 mls/hr EVERY 8 HOURS IVPB 07/11/17 14:00 07/18/17 23:59 07/14/17 05:37 Theophylline (Paresh-Dur) 100 mg EVERY 12 HOURS ORAL 07/10/17 09:45 08/09/17 09:44 07/14/17 09:09 Magdalena Jones M.D. Jul 14, 2017 11:46
[2017-07-14 12:00] VITALS: BP 156/92
[2017-07-14] MEDS ORDERED: Oseltamivir 75mg cap ORAL SCH ×2 (12:15→18:00)
--- NOTE | 2017-07-14 13:32 | Pulmonology Progress Note ---
Assessment/Plan Problems: (1) Acute hypercapnic respiratory failure (2) Asthma exacerbation (3) Aspiration pneumonia (4) Ventriculo-peritoneal shunt status Assessment/Plan off bipap wbc decreasing decrease sterids c continue abx check cultures check electrolytes. cxr reviewed, much better med/surg if t taper steroids Subjective ROS Limited/Unobtainable: No Interval Events: doing better off bipap Allergies: Coded Allergies: No Known Allergies (Unverified , 02/19/17) Objective Last 24 Hour Vital Signs Date Time Temp Pulse Resp B/P (MAP) Pulse Ox O2 Delivery O2 Flow Rate FiO2 07/14/17 12:00 96.8 109 22 156/92 88 Venturi Mask 14.0 55 07/14/17 12:00 14.0 55 07/14/17 09:13 104 152/98 07/14/17 08:00 97.9 104 20 152/98 93 Venturi Mask 14.0 55 07/14/17 08:00 14.0 55 07/14/17 08:00 101 07/14/17 05:17 55 07/14/17 04:00 98.3 96 24 158/103 96 Simple Mask 5.0 07/14/17 04:00 100 07/14/17 02:07 98.3 07/14/17 00:00 98.3 103 22 149/94 97 Simple Mask 5.0 07/14/17 00:00 107 07/14/17 00:00 50 07/13/17 22:48 98 17 96 Full Face 60 07/13/17 21:26 100 Simple Mask 15.0 07/13/17 21:26 Non-Rebreather 15.0 07/13/17 20:00 98.4 100 22 134/67 97 Simple Mask 5.0 07/13/17 20:00 109 07/13/17 16:00 5.0 07/13/17 16:00 96 07/13/17 16:00 98.2 96 22 174/103 94 Simple Mask 5.0 Intake and Output 07/13/17 07/14/17 19:00 07:00 Intake Total 590.0 ml 410.0 ml Output Total 300 ml Balance 290.0 ml 410.0 ml Intake Oral 480 ml 300 ml IV Total 110.0 ml 110.0 ml Output Urine Total 300 ml # Voids 2 2 # Bowel Movements 6 5 General Appearance: WD/WN HEENT: normocephalic, anicteric Respiratory/Chest: chest wall non-tender, lungs clear Breasts: no masses Cardiovascular: normal peripheral pulses Abdomen: normal bowel sounds, no organomegaly Extremities: no cyanosis, no clubbing Skin: no lesions Microbiology Date/Time Source Procedure Growth Status 07/11/17 14:35 Sputum Induced Gram Stain - Final Complete 07/11/17 14:35 Sputum Induced Sputum Culture - Final NORMAL UPPER RESPIRATORY KARINE PRESENT Complete Laboratory Tests 07/13/17 19:10: Reticulocyte Count 4.7H, Fibrinogen 509H, Iron Level 59, Total Iron Binding Capacity 312, Percent Iron Saturation 19, Unsaturated Iron Binding 253, Ferritin 74, Vitamin B12 Level 608, Folate 15.5, Thyroid Stimulating Hormone ( TSH) 0.486 Current Medications Medications (Trade) Dose Ordered Sig/Selvin Route PRN Reason Start Time Stop Time Status Last Admin Dose Admin Albuterol/ Ipratropium (Albuterol/ Ipratropium) 3 ml Q4H PRN HHN Shortness of Breath 07/12/17 21:15 07/17/17 21:14 Amlodipine Besylate (Norvasc) 5 mg DAILY ORAL 07/10/17 09:45 08/09/17 09:44 07/14/17 09:13 Docusate Sodium (Colace) 100 mg TWICE A DAY ORAL 07/10/17 09:45 08/09/17 09:44 07/14/17 09:10 Escitalopram Oxalate (Lexapro) 10 mg DAILY ORAL 07/10/17 09:45 08/09/17 09:44 07/14/17 09:09 Gabapentin (Neurontin) 100 mg THREE TIMES A DAY ORAL 07/10/17 09:45 08/09/17 09:44 07/14/17 13:06 Heparin Sodium (Porcine) (Heparin 5000 units/ml) 5,000 units EVERY 12 HOURS SUBQ 07/10/17 09:45 08/09/17 09:44 07/14/17 09:12 Levetiracetam (Keppra) 500 mg Q12HR ORAL 07/10/17 09:45 08/09/17 09:44 07/14/17 09:10 Methylprednisolone Sodium Succinate (Solu-MEDROL) 60 mg DAILY IV 07/14/17 09:00 08/10/17 17:59 07/14/17 09:09 Morphine Sulfate (Morphine Sulfate) 1 mg EVERY 6 HOURS PRN IVP Severe Pain (Pain Scale 7-10) 07/10/17 09:00 07/17/17 08:59 07/14/17 12:09 Oseltamivir Phosphate (Tamiflu) 75 mg TWICE A DAY ORAL 07/10/17 12:15 07/15/17 12:14 07/14/17 09:10 Piperacillin Sod/ Tazobactam Sod 3.375 gm/Sodium Chloride 110 ml @ 27.5 mls/hr EVERY 8 HOURS IVPB 07/11/17 14:00 07/18/17 23:59 07/14/17 05:37 Theophylline (Paresh-Dur) 100 mg EVERY 12 HOURS ORAL 07/10/17 09:45 08/09/17 09:44 07/14/17 09:09 CRISTINA BRAMBILA Jul 14, 2017 13:32
[2017-07-14] MEDS ORDERED: Piperacillin/Tazobactam 3.375 GM in NS 110 ML IVPB SCH ×2 (14:00→22:00)
[2017-07-14 16:00] VITALS: BP 156/100
--- NOTE | 2017-07-14 19:29 | General Progress Note ---
Assessment/Plan Assessment/Plan ASSESSMENT AND RECS: 1. Anemia secondary to chronic disease. Continue to closely monitor. --> anemia w/u has been ordered and reviewed, no aid noted 2. Shortness of breath, related to underlying asthma exacerbation. On Levaquin for bacterial bronchitis. Continue per ID service. --> on bipap, pulm following 3. Asthma exacerbation with infiltrates noted. Continue Tamiflu. 4. Elevated bicarb, potentially related to acidosis, retention of CO2. 5. Hypoglycemia, potentially related to steroids. 6. Leukocytosis related to underlying steroids. 7. Seizure disorder, currently stable 8. Malnutrition Subjective Constitutional: Reports: no symptoms HEENT: Reports: no symptoms Respiratory: Reports: no symptoms Gastrointestinal/Abdominal: Reports: no symptoms Genitourinary: Reports: no symptoms Neurologic/Psychiatric: Reports: no symptoms Endocrine: Reports: no symptoms Hematologic/Lymphatic: Reports: anemia Allergies: Coded Allergies: No Known Allergies (Unverified , 02/19/17) Subjective on bipap, is feeling somewhat better Objective Last 24 Hour Vital Signs Date Time Temp Pulse Resp B/P (MAP) Pulse Ox O2 Delivery O2 Flow Rate FiO2 07/14/17 19:07 96 Venturi Mask 12.0 50 07/14/17 19:07 Venturi Mask 50 07/14/17 16:12 106 07/14/17 16:00 98.1 115 22 156/100 90 Venturi Mask 14.0 55 07/14/17 16:00 14.0 55 07/14/17 12:00 96.8 109 22 156/92 88 Venturi Mask 14.0 55 07/14/17 12:00 14.0 55 07/14/17 12:00 119 07/14/17 09:13 104 152/98 07/14/17 08:00 97.9 104 20 152/98 93 Venturi Mask 14.0 55 07/14/17 08:00 14.0 55 07/14/17 08:00 101 07/14/17 06:58 97 Venturi Mask 12.0 50 07/14/17 06:58 Venturi Mask 12.0 07/14/17 05:17 55 07/14/17 04:00 98.3 96 24 158/103 96 Simple Mask 5.0 07/14/17 04:00 100 07/14/17 02:07 98.3 07/14/17 00:00 98.3 103 22 149/94 97 Simple Mask 5.0 07/14/17 00:00 107 07/14/17 00:00 50 07/13/17 22:48 98 17 96 Full Face 60 07/13/17 21:26 100 Simple Mask 15.0 07/13/17 21:26 Non-Rebreather 15.0 07/13/17 20:00 98.4 100 22 134/67 97 Simple Mask 5.0 07/13/17 20:00 109 Intake and Output 07/13/17 07/14/17 19:00 07:00 Intake Total 590.0 ml 410.0 ml Output Total 300 ml Balance 290.0 ml 410.0 ml Intake Oral 480 ml 300 ml IV Total 110.0 ml 110.0 ml Output Urine Total 300 ml # Voids 2 2 # Bowel Movements 6 5 Height (Feet): 5 Height (Inches): 5.00 Weight (Pounds): 250 General Appearance: WD/WN EENT: normal ENT inspection Neck: supple Cardiovascular: regular rhythm Respiratory/Chest: normal breath sounds Abdomen: soft Edema: 1+ Leg (L), 1+ Leg (R) Edema: mild edema Neurologic: alert Uche Leon Jul 14, 2017 19:29
--- NOTE | 2017-07-14 19:57 | Consultation ---
History of Present Illness General Date patient seen: Jul 14, 2017 Chief Complaint: Dyspnea/Respdistress Referring physician: Dr. Kamara Reason for Consultation: dysnea Present Illness HPI 32-year-old female with past medical history significant for asthma and seizure disorder, at this time presents to the ER for worsening shortness of breath as well as wheezing and noted to have exacerbation. the pt is anxious and stated that she afraid to be discharged and decompensate. the pt became tearful and stated she will leave tomorrow . Allergies: Coded Allergies: No Known Allergies (Unverified , 02/19/17) Medication History Scheduled Albuterol Sulfate* (Proair Hfa*), 1 PUFF INH Q6H Amlodipine Besylate (Norvasc), 5 MG ORAL DAILY Docusate Sodium* (Colace*), 100 MG ORAL TWICE A DAY Escitalopram Oxalate* (Lexapro*), 10 MG ORAL DAILY Gabapentin* (Gabapentin*), 100 MG ORAL THREE TIMES A DAY Levetiracetam (Levetiracetam), 500 MG ORAL Q12HR Levetiracetam (Keppra), 500 MG ORAL EVERY 12 HOURS, (Reported) Lidocaine (Lidoderm), 1 PATCH TOPIC EVERY 12 HOURS Polyethylene Glycol 3350* (Miralax*), 17 GM ORAL DAILY Theophylline (Theodur*), 100 MG ORAL EVERY 12 HOURS Patient History History Provided By: Patient, Medical Record, PMD Healthcare decision maker Arnulfo Metz Resuscitation status Full Code Advanced Directive on File No Past Medical/Surgical History Past Medical/Surgical History: (1) h/o seizure disorder in childhood (2) single episode generalised seizure. (3) COPD exacerbation (4) Seizures (5) Pneumonia (6) Aspiration pneumonia (7) Asthma exacerbation (8) Acute hypercapnic respiratory failure Review of Systems Psychiatric: Reports: prior hx, anxiety, depressed feelings, emotional problems Physical Exam General Appearance: no apparent distress, alert Neurologic: alert, oriented x 3, responsive, depressed affect Last 24 Hour Vital Signs Date Time Temp Pulse Resp B/P (MAP) Pulse Ox O2 Delivery O2 Flow Rate FiO2 07/14/17 19:07 96 Venturi Mask 12.0 50 07/14/17 19:07 Venturi Mask 50 07/14/17 16:12 106 07/14/17 16:00 98.1 115 22 156/100 90 Venturi Mask 14.0 55 07/14/17 16:00 14.0 55 07/14/17 12:00 96.8 109 22 156/92 88 Venturi Mask 14.0 55 07/14/17 12:00 14.0 55 07/14/17 12:00 119 07/14/17 09:13 104 152/98 07/14/17 08:00 97.9 104 20 152/98 93 Venturi Mask 14.0 55 07/14/17 08:00 14.0 55 07/14/17 08:00 101 07/14/17 06:58 97 Venturi Mask 12.0 50 07/14/17 06:58 Venturi Mask 12.0 07/14/17 05:17 55 07/14/17 04:00 98.3 96 24 158/103 96 Simple Mask 5.0 07/14/17 04:00 100 07/14/17 02:07 98.3 07/14/17 00:00 98.3 103 22 149/94 97 Simple Mask 5.0 07/14/17 00:00 107 07/14/17 00:00 50 07/13/17 22:48 98 17 96 Full Face 60 07/13/17 21:26 100 Simple Mask 15.0 07/13/17 21:26 Non-Rebreather 15.0 07/13/17 20:00 98.4 100 22 134/67 97 Simple Mask 5.0 07/13/17 20:00 109 Intake and Output 07/13/17 07/14/17 19:00 07:00 Intake Total 590.0 ml 410.0 ml Output Total 300 ml Balance 290.0 ml 410.0 ml Intake Oral 480 ml 300 ml IV Total 110.0 ml 110.0 ml Output Urine Total 300 ml # Voids 2 2 # Bowel Movements 6 5 Height (Feet): 5 Height (Inches): 5.00 Weight (Pounds): 250 Medications Current Medications Medications (Trade) Dose Ordered Sig/Selvin Route PRN Reason Start Time Stop Time Status Last Admin Dose Admin Albuterol/ Ipratropium (Albuterol/ Ipratropium) 3 ml Q4H PRN HHN Shortness of Breath 07/14/17 21:15 07/17/17 23:59 Amlodipine Besylate (Norvasc) 5 mg DAILY ORAL 07/15/17 09:00 08/09/17 09:44 Clonazepam (KlonoPIN) 1 mg BEDTIME ORAL 07/14/17 21:00 07/21/17 20:59 Docusate Sodium (Colace) 100 mg TWICE A DAY ORAL 07/14/17 18:00 08/09/17 09:44 Escitalopram Oxalate (Lexapro) 20 mg DAILY ORAL 07/15/17 09:00 08/14/17 08:59 Gabapentin (Neurontin) 100 mg THREE TIMES A DAY ORAL 07/14/17 18:00 08/09/17 09:44 Heparin Sodium (Porcine) (Heparin 5000 units/ml) 5,000 units EVERY 12 HOURS SUBQ 07/14/17 21:00 08/09/17 09:44 Levetiracetam (Keppra) 500 mg Q12HR ORAL 07/14/17 21:00 08/09/17 09:44 Methylprednisolone Sodium Succinate (Solu-MEDROL) 40 mg DAILY IVP 07/15/17 09:00 08/14/17 08:59 Morphine Sulfate (Morphine Sulfate) 1 mg EVERY 6 HOURS PRN IVP Severe Pain (Pain Scale 7-10) 07/14/17 18:00 07/17/17 23:59 Oseltamivir Phosphate (Tamiflu) 75 mg TWICE A DAY ORAL 07/14/17 18:00 07/15/17 23:59 Piperacillin Sod/ Tazobactam Sod 3.375 gm/Sodium Chloride 110 ml @ 27.5 mls/hr EVERY 8 HOURS IVPB 07/14/17 22:00 07/18/17 23:59 Theophylline (Paresh-Dur) 100 mg EVERY 12 HOURS ORAL 07/14/17 21:00 08/09/17 09:44 Assessment/Plan Status: stable, progressing Assessment/Plan MDD anxiety d/o -lexapro 20 -klonopin 1mg q Cory Mcbride M.D. Jul 14, 2017 19:57
[2017-07-14 20:00] VITALS: BP 170/107
[2017-07-14] MEDS ORDERED: Albuterol/Ipratropium 3ml neb HHN PRN ×3 (21:15)
[2017-07-15] VITALS: BP 148/110
[2017-07-15] MEDS: Morphine Sulfate 2mg/ml Inj IVP PRN ×3 (03:23→20:06)
[2017-07-15 04:00] VITALS: BP 191/127
[2017-07-15] MEDS: Piperacillin/Tazobactam 3.375 GM in NS 110 ML IVPB SCH ×3 (06:52→22:18)
[2017-07-15 07:41] LABS: BASOPHILS % (AUTO) 0.4 % (0.0-2.0); HEMATOCRIT 34.2 % (37.0-47.0); HEMOGLOBIN 10.2 G/DL (12.0-16.0); LYMPHOCYTES % (AUTO) 18.7 % (20.0-45.0); MEAN CORPUSCULAR VOLUME 102 FL (80-99); MONOCYTES % (AUTO) 6.6 % (1.0-10.0); NEUTROPHILS % (AUTO) 74.2 % (45.0-75.0); PLATELET COUNT 304 K/UL (150-450); RED BLOOD COUNT 3.35 M/UL (4.20-5.40); RED CELL DISTRIBUTION WIDTH 15.4 % (11.6-14.8); WHITE BLOOD COUNT 16.8 K/UL (4.8-10.8)
[2017-07-15 08:00] VITALS: BP 163/93
[2017-07-15] MEDS: Docusate 100mg cap ORAL SCH ×2 (08:45→17:21)
[2017-07-15] MEDS: Theophylline ER 100mg ORAL SCH ×2 (08:46→22:17)
[2017-07-15] MEDS: Heparin 5000 units/ml inj SUBQ SCH ×2 (08:47→22:22)
[2017-07-15] MEDS: Oseltamivir 75mg cap ORAL SCH (08:47)
[2017-07-15] MEDS ORDERED: Solu-MEDROL 40mg Inj IVP SCH ×4 (09:00)
[2017-07-15 12:00] VITALS: BP 136/85
--- NOTE | 2017-07-15 12:36 | Pulmonology Progress Note ---
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 sezure disorder MDD anxiety morbid obesity anemia of chronic disease PLAN OF CARE [facility] back on BiPAP 15 fup with ABG today in 3 hrs Titrate O2 to keep sat above 90%, pulm toilet ATC and prn, add CPT x 48 hrs with HHN IV steroids increase dose trial of Theophylline Abx and Tamiflu ID follows sputum cx and blood cx negative fup CXR BP management with CCB seizure precautions, continue Keppra DVT prophylaxis PT/OT psych eval, psych meds added case discussed and evaluated by supervising physician Subjective Allergies: Coded Allergies: No Known Allergies (Unverified , 02/19/17) Subjective transferred to [facility] hypoxemic and hypercapnic placed on BiPAP more lethargic Objective Last 24 Hour Vital Signs Date Time Temp Pulse Resp B/P (MAP) Pulse Ox O2 Delivery O2 Flow Rate FiO2 07/15/17 11:10 83 28 97 Facial 60 07/15/17 09:18 102 26 94 Facial 60 07/15/17 08:46 94 138/81 07/15/17 08:12 179/102 07/15/17 08:00 98.1 83 21 163/93 91 Venturi Mask 07/15/17 06:31 108 24 93 Venturi Mask 12.0 50 07/15/17 06:24 87 Venturi Mask 12.0 50 07/15/17 06:24 Venturi Mask 50 07/15/17 06:24 119 24 87 Venturi Mask 12.0 50 07/15/17 04:00 98.2 125 28 191/127 86 Venturi Mask 07/15/17 00:00 98.1 110 20 148/110 95 Venturi Mask 07/14/17 20:00 98.2 133 20 170/107 95 Venturi Mask 07/14/17 19:07 96 Venturi Mask 12.0 50 07/14/17 19:07 Venturi Mask 50 07/14/17 16:12 106 07/14/17 16:00 98.1 115 22 156/100 90 Venturi Mask 14.0 55 07/14/17 16:00 14.0 55 Intake and Output 07/14/17 07/15/17 19:00 07:00 Intake Total 940.0 ml 555.0 ml Output Total 1000 ml Balance -60.0 ml 555.0 ml Intake Oral 720 ml 500 ml IV Total 220.0 ml 55.0 ml Output Urine Total 1000 ml # Voids 2 5 # Bowel Movements 8 5 General Appearance: other - lethargic HEENT: normocephalic, anicteric, other - BiPAP mask on 21/11 60% FiO2 Respiratory/Chest: crackles/rales - few crsckles at bases Cardiovascular: normal rate, regular rhythm - SR on tele , no JVD Abdomen: soft, non tender - obese Neurologic/Psychiatric: other - lethargic but arousable, Laboratory Tests 07/15/17 04:10: Stool Occult Blood [Pending] 07/15/17 04:40: White Blood Count 16.8H, Red Blood Count 3.35L, Hemoglobin 10.2L, Hematocrit 34.2L, Mean Corpuscular Volume 102H, Mean Corpuscular Hemoglobin 30.4, Mean Corpuscular Hemoglobin Concent 29.8L, Red Cell Distribution Width 15.4H, Platelet Count 304, Mean Platelet Volume 6.8, Neutrophils (%) (Auto) 74.2, Lymphocytes (%) (Auto) 18.7L, Monocytes (%) (Auto) 6.6, Eosinophils (%) (Auto) 0.0, Basophils (%) (Auto) 0.4 07/15/17 07:38: Arterial Blood pH 7.339L, Arterial Blood Partial Pressure CO2 98.5*H, Arterial Blood Partial Pressure O2 57.9L, Arterial Blood HCO3 51.8H, Arterial Blood Oxygen Saturation 88.7L, Arterial Blood Base Excess 21.7, Lalito Test Positive Current Medications Medications (Trade) Dose Ordered Sig/Selvin Route PRN Reason Start Time Stop Time Status Last Admin Dose Admin Albuterol/ Ipratropium (Albuterol/ Ipratropium) 3 ml Q4H PRN HHN Shortness of Breath 07/15/17 13:15 07/17/17 23:59 Amlodipine Besylate (Norvasc) 5 mg DAILY ORAL 07/16/17 09:00 08/09/17 09:44 Clonazepam (KlonoPIN) 1 mg BEDTIME ORAL 07/15/17 21:00 07/21/17 20:59 Clonidine HCl (Catapres) 0.1 mg EVERY 6 HOURS PRN ORAL For High Blood Pressure>160 07/15/17 12:00 08/14/17 07:44 Docusate Sodium (Colace) 100 mg TWICE A DAY ORAL 07/15/17 18:00 08/09/17 09:44 Escitalopram Oxalate (Lexapro) 20 mg DAILY ORAL 07/16/17 09:00 08/14/17 08:59 Gabapentin (Neurontin) 100 mg THREE TIMES A DAY ORAL 07/15/17 13:00 08/09/17 09:44 Heparin Sodium (Porcine) (Heparin 5000 units/ml) 5,000 units EVERY 12 HOURS SUBQ 07/15/17 21:00 08/09/17 09:44 Levetiracetam (Keppra) 500 mg Q12HR ORAL 07/15/17 21:00 08/09/17 09:44 Methylprednisolone Sodium Succinate (Solu-MEDROL) 40 mg DAILY IVP 07/16/17 09:00 08/14/17 08:59 Morphine Sulfate (Morphine Sulfate) 1 mg EVERY 6 HOURS PRN IVP Severe Pain (Pain Scale 7-10) 07/15/17 12:00 07/17/17 23:59 Oseltamivir Phosphate (Tamiflu) 75 mg TWICE A DAY ORAL 07/15/17 18:00 07/15/17 23:59 Piperacillin Sod/ Tazobactam Sod 3.375 gm/Sodium Chloride 110 ml @ 27.5 mls/hr EVERY 8 HOURS IVPB 07/15/17 14:00 07/18/17 23:59 Theophylline (Paresh-Dur) 100 mg EVERY 12 HOURS ORAL 07/15/17 21:00 08/09/17 09:44 Ayleen Lees NP ([facility]te[facility]) Jul 15, 2017 12:36
[2017-07-15] MEDS ORDERED: Albuterol/Ipratropium 3ml neb HHN PRN (13:15)
--- NOTE | 2017-07-15 15:33 | Infectious Diseases Prog Note ---
Assessment/Plan Assessment/Plan A: Asthma exacerbation- r/o Influenza, r/o bacterial bronchitis-possible PNA worsen on BiPAP round the clock , C02 retention -CXR 07/13: Right greater than left patchy and nodular airspace opacities are again demonstrated, unchanged. There is probably a small amount of fluid along the major fissure. -CXR: Bilateral diffuse infiltrates versus edema -sp cx normal tristen Leukocytosis, worsening (on steroids), -Bcx NTD Plan: - cont Zosyn # 5 (abx d# 7/7-10) , add Levaquin d# 1 DC Tamiflu #5/5 -/ SP Leaquin #3 -Monitor CBC/BMP, temperatures; trend WBC -aspiration precautions t Subjective Constitutional: Denies: no symptoms, fever, chills, fatigue, anorexia, drenching sweats, other Allergies: Coded Allergies: No Known Allergies (Unverified , 02/19/17) Objective Vital Signs Last 24 Hour Vital Signs Date Time Temp Pulse Resp B/P (MAP) Pulse Ox O2 Delivery O2 Flow Rate FiO2 07/15/17 15:21 82 26 98 Facial 60 07/15/17 14:34 98 07/15/17 14:10 98.1 07/15/17 12:35 85 27 97 Facial 60 07/15/17 12:00 86 07/15/17 12:00 98.1 87 21 136/85 93 Bi-pap 60 07/15/17 11:10 83 28 97 Facial 60 07/15/17 09:18 102 26 94 Facial 60 07/15/17 08:46 94 138/81 07/15/17 08:12 179/102 07/15/17 08:00 98.1 83 21 163/93 91 Venturi Mask 07/15/17 06:31 108 24 93 Venturi Mask 12.0 50 07/15/17 06:24 87 Venturi Mask 12.0 50 07/15/17 06:24 Venturi Mask 50 07/15/17 06:24 119 24 87 Venturi Mask 12.0 50 07/15/17 04:00 98.2 125 28 191/127 86 Venturi Mask 07/15/17 00:00 98.1 110 20 148/110 95 Venturi Mask 07/14/17 20:00 98.2 133 20 170/107 95 Venturi Mask 07/14/17 19:07 96 Venturi Mask 12.0 50 07/14/17 19:07 Venturi Mask 50 07/14/17 16:12 106 07/14/17 16:00 98.1 115 22 156/100 90 Venturi Mask 14.0 55 07/14/17 16:00 14.0 55 Height (Feet): 5 Height (Inches): 5.00 Weight (Pounds): 250 HEENT: anicteric Respiratory/Chest: no respiratory distress Cardiovascular: regularly irregular Abdomen: non distended Laboratory Tests Test 07/15/17 04:10 07/15/17 04:40 07/15/17 07:38 07/15/17 13:00 Stool Occult Blood Pending White Blood Count 16.8 K/UL (4.8-10.8) H Red Blood Count 3.35 M/UL (4.20-5.40) L Hemoglobin 10.2 G/DL (12.0-16.0) L Hematocrit 34.2 % (37.0-47.0) L Mean Corpuscular Volume 102 FL (80-99) H Mean Corpuscular Hemoglobin 30.4 PG (27.0-31.0) Mean Corpuscular Hemoglobin Concent 29.8 G/DL (32.0-36.0) L Red Cell Distribution Width 15.4 % (11.6-14.8) H Platelet Count 304 K/UL (150-450) Mean Platelet Volume 6.8 FL (6.5-10.1) Neutrophils (%) (Auto) 74.2 % (45.0-75.0) Lymphocytes (%) (Auto) 18.7 % (20.0-45.0) L Monocytes (%) (Auto) 6.6 % (1.0-10.0) Eosinophils (%) (Auto) 0.0 % (0.0-3.0) Basophils (%) (Auto) 0.4 % (0.0-2.0) Arterial Blood pH 7.339 (7.350-7.450) 7.380 (7.350-7.450) Arterial Blood Partial Pressure CO2 98.5 mmHg (35.0-45.0) *H 91.4 mmHg (35.0-45.0) *H Arterial Blood Partial Pressure O2 57.9 mmHg (75.0-100.0) L 78.4 mmHg (75.0-100.0) Arterial Blood HCO3 51.8 mmol/L (22.0-26.0) H 53.1 mmol/L (22.0-26.0) H Arterial Blood Oxygen Saturation 88.7 % (92.0-98.0) L 95.3 % (92.0-98.0) Arterial Blood Base Excess 21.7 23.3 Lalito Test Positive Positive Current Medications Medications (Trade) Dose Ordered Sig/Selvin Route PRN Reason Start Time Stop Time Status Last Admin Dose Admin Albuterol/ Ipratropium (Albuterol/ Ipratropium) 3 ml Q4H PRN HHN Shortness of Breath 07/15/17 13:15 07/17/17 23:59 Amlodipine Besylate (Norvasc) 5 mg DAILY ORAL 07/16/17 09:00 08/09/17 09:44 Clonazepam (KlonoPIN) 1 mg BEDTIME ORAL 07/15/17 21:00 07/21/17 20:59 Clonidine HCl (Catapres) 0.1 mg EVERY 6 HOURS PRN ORAL For High Blood Pressure>160 07/15/17 12:00 08/14/17 07:44 Docusate Sodium (Colace) 100 mg TWICE A DAY ORAL 07/15/17 18:00 08/09/17 09:44 Escitalopram Oxalate (Lexapro) 20 mg DAILY ORAL 07/16/17 09:00 08/14/17 08:59 Gabapentin (Neurontin) 100 mg THREE TIMES A DAY ORAL 07/15/17 13:00 08/09/17 09:44 07/15/17 13:36 Heparin Sodium (Porcine) (Heparin 5000 units/ml) 5,000 units EVERY 12 HOURS SUBQ 07/15/17 21:00 08/09/17 09:44 Levetiracetam (Keppra) 500 mg Q12HR ORAL 07/15/17 21:00 08/09/17 09:44 Methylprednisolone Sodium Succinate (Solu-MEDROL) 40 mg DAILY IVP 07/16/17 09:00 08/14/17 08:59 Morphine Sulfate (Morphine Sulfate) 1 mg EVERY 6 HOURS PRN IVP Severe Pain (Pain Scale 7-10) 07/15/17 12:00 07/17/17 23:59 07/15/17 13:40 Oseltamivir Phosphate (Tamiflu) 75 mg TWICE A DAY ORAL 07/15/17 18:00 07/15/17 23:59 Piperacillin Sod/ Tazobactam Sod 3.375 gm/Sodium Chloride 110 ml @ 27.5 mls/hr EVERY 8 HOURS IVPB 07/15/17 14:00 07/18/17 23:59 07/15/17 13:39 Theophylline (Paresh-Dur) 100 mg EVERY 12 HOURS ORAL 07/15/17 21:00 08/09/17 09:44 JAYY HARMAN M.D. Jul 15, 2017 15:32
[2017-07-15 16:00] VITALS: BP 137/79
[2017-07-15] MEDS: Solu-MEDROL 40mg Inj IVP SCH (17:20)
[2017-07-15] MEDS ORDERED: Oseltamivir 75mg cap ORAL SCH (18:00)
[2017-07-15] MEDS: Albuterol/Ipratropium 3ml neb HHN SCH (19:02)
[2017-07-15 20:00] VITALS: BP 155/85
[2017-07-15] MEDS ORDERED: Tubing IV Secondary IV ONE (22:36)
--- NOTE | 2017-07-15 23:18 | General Progress Note ---
Assessment/Plan Status: unchanged Assessment/Plan ASSESSMENT AND RECS: #. Anemia secondary to chronic disease. Continue to closely monitor. --> anemia w/u has been ordered and reviewed, no aid noted #. Shortness of breath, related to underlying asthma exacerbation. On Levaquin for bacterial bronchitis. Continue per ID service. --> on bipap, pulm following #. Asthma exacerbation with infiltrates noted. Continue Tamiflu. #. Elevated bicarb, potentially related to acidosis, retention of CO2. #. Hypoglycemia, potentially related to steroids. #. Leukocytosis related to underlying steroids. #. Seizure disorder, currently stable #. Malnutrition Subjective Date patient seen: Jul 15, 2017 Constitutional: Denies: no symptoms, chills, diaphoresis, fever, malaise, weakness, other HEENT: Denies: no symptoms, eye pain, blurred vision, tearing, double vision, ear pain, ear discharge, nose pain, nose congestion, throat pain, throat swelling, mouth pain, mouth swelling, other Cardiovascular: Denies: no symptoms, chest pain, edema, irregular heart rate, lightheadedness, palpitations, syncope, other Respiratory: Denies: no symptoms, cough, orthopnea, shortness of breath, SOB with excertion, SOB at rest, sputum, stridor, wheezing, other Gastrointestinal/Abdominal: Denies: no symptoms, abdomen distended, abdominal pain, black stools, tarry stools, blood in stool, constipated, diarrhea, difficulty swallowing, nausea, poor appetite, poor fluid intake, rectal bleeding , vomiting, other Hematologic/Lymphatic: Reports: anemia Allergies: Coded Allergies: No Known Allergies (Unverified , 02/19/17) Subjective Remains on bipap, H/H stable. Feeling better today. Objective Last 24 Hour Vital Signs Date Time Temp Pulse Resp B/P (MAP) Pulse Ox O2 Delivery O2 Flow Rate FiO2 07/15/17 21:11 80 24 97 Facial 60 07/15/17 19:13 89 24 99 Bi-pap 60 07/15/17 19:05 85 26 96 Bi-pap 60 07/15/17 19:04 85 33 98 Facial 60 07/15/17 19:03 97 Bi-pap 60 07/15/17 19:03 Bi-pap 60 07/15/17 16:52 94 27 97 Facial 60 07/15/17 16:00 97.5 82 24 137/79 95 Bi-pap 60 07/15/17 16:00 96 07/15/17 15:21 82 26 98 Facial 60 07/15/17 14:34 98 07/15/17 14:10 98.1 07/15/17 12:35 85 27 97 Facial 60 07/15/17 12:00 86 07/15/17 12:00 98.1 87 21 136/85 93 Bi-pap 60 07/15/17 11:10 83 28 97 Facial 60 07/15/17 09:18 102 26 94 Facial 60 07/15/17 08:46 94 138/81 07/15/17 08:12 179/102 07/15/17 08:00 98.1 83 21 163/93 91 Venturi Mask 07/15/17 06:31 108 24 93 Venturi Mask 12.0 50 07/15/17 06:24 87 Venturi Mask 12.0 50 07/15/17 06:24 Venturi Mask 50 07/15/17 06:24 119 24 87 Venturi Mask 12.0 50 07/15/17 04:00 98.2 125 28 191/127 86 Venturi Mask 07/15/17 00:00 98.1 110 20 148/110 95 Venturi Mask Intake and Output 07/14/17 07/15/17 19:00 07:00 Intake Total 940.0 ml 555.0 ml Output Total 1000 ml Balance -60.0 ml 555.0 ml Intake Oral 720 ml 500 ml IV Total 220.0 ml 55.0 ml Output Urine Total 1000 ml # Voids 2 5 # Bowel Movements 8 5 Laboratory Tests 07/15/17 04:10: Stool Occult Blood [Pending] 07/15/17 04:40: White Blood Count 16.8H, Red Blood Count 3.35L, Hemoglobin 10.2L, Hematocrit 34.2L, Mean Corpuscular Volume 102H, Mean Corpuscular Hemoglobin 30.4, Mean Corpuscular Hemoglobin Concent 29.8L, Red Cell Distribution Width 15.4H, Platelet Count 304, Mean Platelet Volume 6.8, Neutrophils (%) (Auto) 74.2, Lymphocytes (%) (Auto) 18.7L, Monocytes (%) (Auto) 6.6, Eosinophils (%) (Auto) 0.0, Basophils (%) (Auto) 0.4 07/15/17 07:38: Arterial Blood pH 7.339L, Arterial Blood Partial Pressure CO2 98.5*H, Arterial Blood Partial Pressure O2 57.9L, Arterial Blood HCO3 51.8H, Arterial Blood Oxygen Saturation 88.7L, Arterial Blood Base Excess 21.7, Lalito Test Positive 07/15/17 13:00: Arterial Blood pH 7.380, Arterial Blood Partial Pressure CO2 91.4*H, Arterial Blood Partial Pressure O2 78.4, Arterial Blood HCO3 53.1H, Arterial Blood Oxygen Saturation 95.3, Arterial Blood Base Excess 23.3, Lalito Test Positive Height (Feet): 5 Height (Inches): 5.00 Weight (Pounds): 250 General Appearance: no apparent distress Neck: normal alignment Cardiovascular: normal rate Respiratory/Chest: decreased breath sounds Abdomen: non tender, soft Uche Leon Jul 15, 2017 23:18
[2017-07-16] VITALS: BP 155/71
[2017-07-16] MEDS: Morphine Sulfate 2mg/ml Inj IVP PRN ×4 (01:59→22:22)
[2017-07-16 04:00] VITALS: BP 158/84
[2017-07-16] MEDS: Piperacillin/Tazobactam 3.375 GM in NS 110 ML IVPB SCH ×3 (06:29→21:50)
[2017-07-16] MEDS: Albuterol/Ipratropium 3ml neb HHN SCH ×3 (06:59→20:41)
[2017-07-16 07:46] LABS: BASOPHILS % (AUTO) 0.3 % (0.0-2.0); EOSINOPHILS % (AUTO) 0.1 % (0.0-3.0); HEMATOCRIT 31.5 % (37.0-47.0); HEMOGLOBIN 9.4 G/DL (12.0-16.0); LYMPHOCYTES % (AUTO) 17.4 % (20.0-45.0); MEAN CORPUSCULAR VOLUME 102 FL (80-99); MONOCYTES % (AUTO) 5.3 % (1.0-10.0); PLATELET COUNT 261 K/UL (150-450); WHITE BLOOD COUNT 12.7 K/UL (4.8-10.8)
[2017-07-16 07:55] LABS: BLOOD UREA NITROGEN 10 mg/dL (7-18); CALCIUM 7.8 MG/DL (8.5-10.1); CHLORIDE 101 MMOL/L (98-107); CREATININE 0.8 MG/DL (0.55-1.30); POTASSIUM 3.7 MMOL/L (3.5-5.1); SODIUM 143 MMOL/L (136-145)
[2017-07-16 07:59] LABS: CARBON DIOXIDE 48 MMOL/L (21-32)
[2017-07-16 08:00] VITALS: BP 132/78
[2017-07-16] MEDS: Theophylline ER 100mg ORAL SCH ×2 (08:14→20:32)
[2017-07-16] MEDS: Solu-MEDROL 40mg Inj IVP SCH ×2 (08:14→17:21)
[2017-07-16] MEDS: Heparin 5000 units/ml inj SUBQ SCH ×2 (08:17→20:34)
[2017-07-16] MEDS: Docusate 100mg cap ORAL SCH ×2 (08:17→17:13)
[2017-07-16] MEDS ORDERED: Solu-MEDROL 40mg Inj IVP SCH (09:00)
[2017-07-16 12:00] VITALS: BP 144/56
[2017-07-16] MEDS ORDERED: Albuterol/Ipratropium 3ml neb HHN PRN (13:00)
--- NOTE | 2017-07-16 13:04 | Pulmonology Progress Note ---
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 seizure disorder MDD anxiety morbid obesity anemia of chronic disease PLAN OF CARE [facility] BiPAP 23/12 still with severe CO2 retention continue BiPAP trial of Diamox Titrate O2 to keep sat above 90%, pulm toilet ATC and prn, add CPT x 48 hrs with HHN IV steroids, increased frequency and not taper yet trial of Theophylline Abx and Tamiflu ID follows sputum cx and blood cx negative fup CXR in am BP management with CCB seizure precautions, continue Keppra DVT prophylaxis PT/OT psych eval, psych meds added case discussed and evaluated by supervising physician Subjective Allergies: Coded Allergies: No Known Allergies (Unverified , 02/19/17) Subjective in [facility] back on BiPAP awake today and responsive ABG this am still with severe CO2 retention Objective Last 24 Hour Vital Signs Date Time Temp Pulse Resp B/P (MAP) Pulse Ox O2 Delivery O2 Flow Rate FiO2 07/16/17 12:00 60 07/16/17 12:00 98.0 92 24 144/56 94 Bi-pap 60 07/16/17 10:01 94 27 97 Facial 60 07/16/17 09:13 82 24 99 Bi-pap 60 07/16/17 09:00 80 24 97 Facial 60 07/16/17 08:45 98.0 07/16/17 08:15 89 138/72 07/16/17 08:00 99 07/16/17 08:00 97.7 86 23 132/78 95 Bi-pap 60 07/16/17 07:03 89 26 97 Bi-pap 60 07/16/17 07:02 89 24 96 Facial 60 07/16/17 07:02 Bi-pap 60 07/16/17 07:02 98 Bi-pap 60 07/16/17 04:34 99 27 95 Facial 60 07/16/17 04:00 98.0 92 25 158/84 95 Bi-pap 65 07/16/17 04:00 60 07/16/17 03:35 95 07/16/17 03:17 102 30 96 Facial 60 07/16/17 01:23 90 26 98 Bi-pap 60 07/16/17 01:16 89 28 97 Bi-pap 60 07/16/17 00:46 105 32 97 Facial 60 07/16/17 00:00 98.4 106 31 155/71 97 Bi-pap 65 07/16/17 00:00 60 07/16/17 00:00 98.4 106 31 155/71 97 Bi-pap 65 07/15/17 23:49 114 07/15/17 23:20 102 34 94 Facial 60 07/15/17 21:11 80 24 97 Facial 60 07/15/17 20:00 98.6 84 24 155/85 96 Bi-pap 60 07/15/17 20:00 60 07/15/17 19:31 96 07/15/17 19:13 89 24 99 Bi-pap 60 07/15/17 19:05 85 26 96 Bi-pap 60 07/15/17 19:04 85 33 98 Facial 60 07/15/17 19:03 97 Bi-pap 60 07/15/17 19:03 Bi-pap 60 07/15/17 16:52 94 27 97 Facial 60 07/15/17 16:00 97.5 82 24 137/79 95 Bi-pap 60 07/15/17 16:00 96 07/15/17 15:21 82 26 98 Facial 60 07/15/17 14:34 98 Intake and Output 07/15/17 07/16/17 19:00 07:00 Intake Total 582.5 ml 324.0 ml Output Total 400 ml Balance 582.5 ml -76.0 ml Intake Oral 240 ml 200 ml IV Total 342.5 ml 124.0 ml Output Urine Total 400 ml # Voids 3 # Bowel Movements 2 1 Objective General Appearance: awake, responsive , on BiPAP , morbidly obese AA female HEENT: normocephalic, anicteric, BiPAP mask on 23/12 60% FiO2 Respiratory/Chest: few crackles at bases, isolated exp wheezes , tachypneic Cardiovascular: normal rate, SR on tele , no JVD Abdomen: soft, non tender - obese Neurologic/Psychiatric: oawake, responsive Laboratory Tests 07/15/17 13:00: Arterial Blood pH 7.380, Arterial Blood Partial Pressure CO2 91.4*H, Arterial Blood Partial Pressure O2 78.4, Arterial Blood HCO3 53.1H, Arterial Blood Oxygen Saturation 95.3, Arterial Blood Base Excess 23.3, Lalito Test Positive 07/16/17 04:00: Arterial Blood pH 7.351, Arterial Blood Partial Pressure CO2 92.7*H, Arterial Blood Partial Pressure O2 75.4, Arterial Blood HCO3 50.1H, Arterial Blood Oxygen Saturation 93.8, Arterial Blood Base Excess 20.7, Lalito Test Positive 07/16/17 06:10: White Blood Count 12.7H, Red Blood Count 3.10L, Hemoglobin 9.4L, Hematocrit 31.5L, Mean Corpuscular Volume 102H, Mean Corpuscular Hemoglobin 30.4, Mean Corpuscular Hemoglobin Concent 30.0L, Red Cell Distribution Width 15.0H, Platelet Count 261, Mean Platelet Volume 7.0, Neutrophils (%) (Auto) 77.0H, Lymphocytes (%) (Auto) 17.4L, Monocytes (%) (Auto) 5.3, Eosinophils (%) (Auto) 0.1, Basophils (%) (Auto) 0.3, Sodium Level 143, Potassium Level 3.7, Chloride Level 101, Carbon Dioxide Level 48*H, Blood Urea Nitrogen 10, Creatinine 0.8, Estimat Glomerular Filtration Rate > 60, Glucose Level 67L, Calcium Level 7.8L Current Medications Medications (Trade) Dose Ordered Sig/Selvin Route PRN Reason Start Time Stop Time Status Last Admin Dose Admin Albuterol/ Ipratropium (Albuterol/ Ipratropium) 3 ml Q4H PRN HHN Shortness of Breath 07/15/17 13:15 07/17/17 23:59 07/16/17 01:13 Albuterol/ Ipratropium (Albuterol/ Ipratropium) 3 ml TIDRT HHN 07/15/17 19:00 07/20/17 18:59 07/16/17 06:59 Amlodipine Besylate (Norvasc) 5 mg DAILY ORAL 07/16/17 09:00 08/09/17 09:44 07/16/17 08:15 Clonazepam (KlonoPIN) 1 mg BEDTIME ORAL 07/15/17 21:00 07/21/17 20:59 07/15/17 22:17 Clonidine HCl (Catapres) 0.1 mg EVERY 6 HOURS PRN ORAL For High Blood Pressure>160 07/15/17 12:00 08/14/17 07:44 Docusate Sodium (Colace) 100 mg TWICE A DAY ORAL 07/15/17 18:00 08/09/17 09:44 07/15/17 17:21 Escitalopram Oxalate (Lexapro) 20 mg DAILY ORAL 07/16/17 09:00 08/14/17 08:59 07/16/17 08:15 Gabapentin (Neurontin) 100 mg THREE TIMES A DAY ORAL 07/15/17 13:00 08/09/17 09:44 07/16/17 08:14 Heparin Sodium (Porcine) (Heparin 5000 units/ml) 5,000 units EVERY 12 HOURS SUBQ 07/15/17 21:00 08/09/17 09:44 07/16/17 08:17 Levetiracetam (Keppra) 500 mg Q12HR ORAL 07/15/17 21:00 08/09/17 09:44 07/16/17 08:14 Levofloxacin 150 ml @ 100 mls/hr Q24H IVPB 07/15/17 17:00 07/22/17 16:59 07/15/17 17:21 Methylprednisolone Sodium Succinate (Solu-MEDROL) 40 mg BID IVP 07/15/17 18:00 08/14/17 08:59 07/16/17 08:14 Morphine Sulfate (Morphine Sulfate) 1 mg EVERY 6 HOURS PRN IVP Severe Pain (Pain Scale 7-10) 07/15/17 12:00 07/17/17 23:59 07/16/17 08:16 Piperacillin Sod/ Tazobactam Sod 3.375 gm/Sodium Chloride 110 ml @ 27.5 mls/hr EVERY 8 HOURS IVPB 07/15/17 14:00 07/18/17 23:59 07/16/17 06:29 Theophylline (Paresh-Dur) 100 mg EVERY 12 HOURS ORAL 07/15/17 21:00 08/09/17 09:44 07/16/17 08:14 [facility]off NP Jul 16, 2017 13:03
[2017-07-16 16:00] VITALS: BP 140/76
[2017-07-16 20:00] VITALS: BP 136/90
--- NOTE | 2017-07-16 23:24 | General Progress Note ---
Assessment/Plan Status: unchanged Assessment/Plan ASSESSMENT AND RECS: #. Anemia secondary to chronic disease. Continue to closely monitor. --> anemia w/u has been ordered and reviewed, no aid noted #. Shortness of breath, related to underlying asthma exacerbation. On Levaquin for bacterial bronchitis. Continue per ID service. --> on bipap, pulm following #. Asthma exacerbation with infiltrates noted. Continue Tamiflu. #. Elevated bicarb, potentially related to acidosis, retention of CO2. #. Hypoglycemia, potentially related to steroids. #. Leukocytosis related to underlying steroids. #. Seizure disorder, currently stable #. Malnutrition Subjective Date patient seen: Jul 16, 2017 Constitutional: Denies: no symptoms, chills, diaphoresis, fever, malaise, weakness, other HEENT: Denies: no symptoms, eye pain, blurred vision, tearing, double vision, ear pain, ear discharge, nose pain, nose congestion, throat pain, throat swelling, mouth pain, mouth swelling, other Cardiovascular: Denies: no symptoms, chest pain, edema, irregular heart rate, lightheadedness, palpitations, syncope, other Respiratory: Denies: no symptoms, cough, orthopnea, shortness of breath, SOB with excertion, SOB at rest, sputum, stridor, wheezing, other Hematologic/Lymphatic: Reports: anemia Allergies: Coded Allergies: No Known Allergies (Unverified , 02/19/17) Subjective Remains on bipap, H/H stable. No major events. Objective Last 24 Hour Vital Signs Date Time Temp Pulse Resp B/P (MAP) Pulse Ox O2 Delivery O2 Flow Rate FiO2 07/16/17 23:05 93 28 99 Facial 60 07/16/17 20:53 84 34 99 Facial 60 07/16/17 20:52 86 34 99 Bi-pap 60 07/16/17 20:38 60 07/16/17 20:38 97 Bi-pap 60 07/16/17 20:38 99 34 99 Bi-pap 60 07/16/17 20:38 Bi-pap 60 07/16/17 20:00 95 07/16/17 20:00 60 07/16/17 20:00 98.2 97 29 136/90 99 Bi-pap 60 07/16/17 19:30 86 26 97 Facial 60 07/16/17 16:57 80 24 96 Facial 60 07/16/17 16:35 98.0 07/16/17 16:00 98.8 107 29 140/76 95 Bi-pap 60 07/16/17 16:00 103 07/16/17 16:00 60 07/16/17 15:25 99 27 95 Facial 60 07/16/17 13:20 80 24 98 Bi-pap 60 07/16/17 13:00 85 26 96 Bi-pap 60 07/16/17 12:00 60 07/16/17 12:00 98 07/16/17 12:00 98.0 92 24 144/56 94 Bi-pap 60 07/16/17 11:00 97 Bi-pap 60 07/16/17 10:01 94 27 97 Facial 60 07/16/17 09:13 82 24 99 Bi-pap 60 07/16/17 09:00 80 24 97 Facial 60 07/16/17 08:15 89 138/72 07/16/17 08:00 99 07/16/17 08:00 97.7 86 23 132/78 95 Bi-pap 60 07/16/17 07:03 89 26 97 Bi-pap 60 07/16/17 07:02 89 24 96 Facial 60 07/16/17 07:02 Bi-pap 60 07/16/17 07:02 98 Bi-pap 60 07/16/17 04:34 99 27 95 Facial 60 07/16/17 04:00 98.0 92 25 158/84 95 Bi-pap 65 07/16/17 04:00 60 07/16/17 03:35 95 07/16/17 03:17 102 30 96 Facial 60 07/16/17 01:23 90 26 98 Bi-pap 60 07/16/17 01:16 89 28 97 Bi-pap 60 07/16/17 00:46 105 32 97 Facial 60 07/16/17 00:00 98.4 106 31 155/71 97 Bi-pap 65 07/16/17 00:00 60 07/16/17 00:00 98.4 106 31 155/71 97 Bi-pap 65 07/15/17 23:49 114 Intake and Output 07/15/17 07/16/17 19:00 07:00 Intake Total 582.5 ml 324.0 ml Output Total 400 ml Balance 582.5 ml -76.0 ml Intake Oral 240 ml 200 ml IV Total 342.5 ml 124.0 ml Output Urine Total 400 ml # Voids 3 # Bowel Movements 2 1 Laboratory Tests 07/16/17 04:00: Arterial Blood pH 7.351, Arterial Blood Partial Pressure CO2 92.7*H, Arterial Blood Partial Pressure O2 75.4, Arterial Blood HCO3 50.1H, Arterial Blood Oxygen Saturation 93.8, Arterial Blood Base Excess 20.7, Lalito Test Positive 07/16/17 06:10: White Blood Count 12.7H, Red Blood Count 3.10L, Hemoglobin 9.4L, Hematocrit 31.5L, Mean Corpuscular Volume 102H, Mean Corpuscular Hemoglobin 30.4, Mean Corpuscular Hemoglobin Concent 30.0L, Red Cell Distribution Width 15.0H, Platelet Count 261, Mean Platelet Volume 7.0, Neutrophils (%) (Auto) 77.0H, Lymphocytes (%) (Auto) 17.4L, Monocytes (%) (Auto) 5.3, Eosinophils (%) (Auto) 0.1, Basophils (%) (Auto) 0.3, Sodium Level 143, Potassium Level 3.7, Chloride Level 101, Carbon Dioxide Level 48*H, Blood Urea Nitrogen 10, Creatinine 0.8, Estimat Glomerular Filtration Rate > 60, Glucose Level 67L, Calcium Level 7.8L Height (Feet): 5 Height (Inches): 5.00 Weight (Pounds): 250 General Appearance: no apparent distress EENT: normal ENT inspection Neck: supple Cardiovascular: normal rate, regular rhythm Respiratory/Chest: decreased breath sounds Uche Leon Jul 16, 2017 23:24
[2017-07-17] VITALS: BP 130/62
[2017-07-17 04:00] VITALS: BP 140/63
[2017-07-17] MEDS: Piperacillin/Tazobactam 3.375 GM in NS 110 ML IVPB SCH (05:39)
[2017-07-17] MEDS: Morphine Sulfate 2mg/ml Inj IVP PRN ×3 (05:50→19:20)
[2017-07-17 06:35] LABS: HEMATOCRIT 32.2 % (37.0-47.0); HEMOGLOBIN 9.7 G/DL (12.0-16.0); MEAN CORPUSCULAR VOLUME 102 FL (80-99); PLATELET COUNT 269 K/UL (150-450); RED BLOOD COUNT 3.15 M/UL (4.20-5.40); RED CELL DISTRIBUTION WIDTH 15.2 % (11.6-14.8); WHITE BLOOD COUNT 12.4 K/UL (4.8-10.8)
[2017-07-17 06:51] LABS: ANION GAP 3 mmol/L (5-15); BLOOD UREA NITROGEN 13 mg/dL (7-18); CALCIUM 8.3 MG/DL (8.5-10.1); CARBON DIOXIDE 37 MMOL/L (21-32); CHLORIDE 103 MMOL/L (98-107); CREATININE 0.9 MG/DL (0.55-1.30); POTASSIUM 4.1 MMOL/L (3.5-5.1); SODIUM 143 MMOL/L (136-145)
[2017-07-17] MEDS: Albuterol/Ipratropium 3ml neb HHN SCH ×3 (07:10→19:22)
[2017-07-17 08:00] VITALS: BP 147/78
[2017-07-17] MEDS: Docusate 100mg cap ORAL SCH ×2 (09:00→17:59)
[2017-07-17] MEDS: Theophylline ER 100mg ORAL SCH ×2 (09:11→20:06)
[2017-07-17] MEDS: Solu-MEDROL 40mg Inj IVP SCH (09:11)
[2017-07-17] MEDS: Heparin 5000 units/ml inj SUBQ SCH ×2 (09:12→20:07)
--- NOTE | 2017-07-17 10:11 | Infectious Diseases Prog Note ---
Assessment/Plan Assessment/Plan Asthma exacerbation- r/o Influenza, r/o bacterial bronchitis-possible PNA- r/o fungal PNA- possibly ANNETTE, ?obesity hypoventilation syndrome contributing worsen on BiPAP round the clock , C02 retention -CXR 07/13: Right greater than left patchy and nodular airspace opacities are again demonstrated, unchanged. There is probably a small amount of fluid along the major fissure. -CXR: Bilateral diffuse infiltrates versus edema -sp cx normal tristen Leukocytosis, (on steroids), improving -Bcx Neg x4 -influenza test ordered, never done- treated empirically Plan: - D/c Zosyn # 7 (abx d# 9) , and Levaquin d# 3/5 -1/6 SP Tamiflu #5/5 -1/2 SP Levaquin #3 -Monitor CBC/BMP, temperatures; trend WBC -aspiration precautions t Subjective Allergies: Coded Allergies: No Known Allergies (Unverified , 02/19/17) Subjective afebrile on venturi mask no cbc today Objective Vital Signs Last 24 Hour Vital Signs Date Time Temp Pulse Resp B/P (MAP) Pulse Ox O2 Delivery O2 Flow Rate FiO2 07/17/17 09:15 93 140/63 07/17/17 08:00 60 07/17/17 08:00 97.8 92 19 147/78 98 Bi-pap 60 07/17/17 08:00 93 07/17/17 07:25 99 23 98 Bi-pap 50 07/17/17 07:14 Bi-pap 60 07/17/17 07:14 97 Bi-pap 50 07/17/17 07:13 97 26 97 Bi-pap 50 07/17/17 07:11 97 26 97 Facial 60 07/17/17 04:54 97 28 99 Facial 60 07/17/17 04:00 90 07/17/17 04:00 60 07/17/17 04:00 97.8 89 24 140/63 98 Bi-pap 60 07/17/17 02:34 98 26 99 Facial 60 07/17/17 01:07 90 27 99 Facial 60 07/17/17 00:00 98.4 108 24 130/62 99 Bi-pap 60 07/17/17 00:00 60 07/17/17 00:00 104 07/16/17 23:05 93 28 99 Facial 60 07/16/17 20:53 84 34 99 Facial 60 07/16/17 20:52 86 34 99 Bi-pap 60 07/16/17 20:38 60 07/16/17 20:38 97 Bi-pap 60 07/16/17 20:38 99 34 99 Bi-pap 60 07/16/17 20:38 Bi-pap 60 07/16/17 20:00 95 07/16/17 20:00 60 07/16/17 20:00 98.2 97 29 136/90 99 Bi-pap 60 07/16/17 19:30 86 26 97 Facial 60 07/16/17 16:57 80 24 96 Facial 60 07/16/17 16:35 98.0 07/16/17 16:00 98.8 107 29 140/76 95 Bi-pap 60 07/16/17 16:00 103 07/16/17 16:00 60 07/16/17 15:25 99 27 95 Facial 60 07/16/17 13:20 80 24 98 Bi-pap 60 07/16/17 13:00 85 26 96 Bi-pap 60 07/16/17 12:00 60 07/16/17 12:00 98 07/16/17 12:00 98.0 92 24 144/56 94 Bi-pap 60 07/16/17 11:00 97 Bi-pap 60 Height (Feet): 5 Height (Inches): 5.00 Weight (Pounds): 250 Objective General Appearance: normal inspection, alert, non-toxic, bipap mask on placed HEENT: normocephalic, atraumatic bilateral eye PERRL, bilateral eye EOMI Neck: supple Respiratory: wheezing Cardiovascular regular rate, rhythm, no edema Gastrointestinal: normal inspection, normal bowel sounds, non tender, soft, no mass, no peritonitis, non-distended, no guarding, no hernia, no pulsatile mass Genitourinary: no CVA tenderness Musculoskeletal: normal inspection, back normal, normal range of motion, no calf tenderness Neurologic: normal inspection, alert, oriented x3, responsive, 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 Laboratory Tests Test 07/17/17 03:55 07/17/17 09:50 White Blood Count 12.4 K/UL (4.8-10.8) H Red Blood Count 3.15 M/UL (4.20-5.40) L Hemoglobin 9.7 G/DL (12.0-16.0) L Hematocrit 32.2 % (37.0-47.0) L Mean Corpuscular Volume 102 FL (80-99) H Mean Corpuscular Hemoglobin 30.7 PG (27.0-31.0) Mean Corpuscular Hemoglobin Concent 30.1 G/DL (32.0-36.0) L Red Cell Distribution Width 15.2 % (11.6-14.8) H Platelet Count 269 K/UL (150-450) Mean Platelet Volume 6.8 FL (6.5-10.1) Neutrophils (%) (Auto) % (45.0-75.0) Lymphocytes (%) (Auto) % (20.0-45.0) Monocytes (%) (Auto) % (1.0-10.0) Eosinophils (%) (Auto) % (0.0-3.0) Basophils (%) (Auto) % (0.0-2.0) Sodium Level 143 MMOL/L (136-145) Potassium Level 4.1 MMOL/L (3.5-5.1) Chloride Level 103 MMOL/L (98-107) Carbon Dioxide Level 37 MMOL/L (21-32) H Anion Gap 3 mmol/L (5-15) L Blood Urea Nitrogen 13 mg/dL (7-18) Creatinine 0.9 MG/DL (0.55-1.30) Estimat Glomerular Filtration Rate > 60 mL/min (>60) Glucose Level 69 MG/DL (74-106) L Calcium Level 8.3 MG/DL (8.5-10.1) L Arterial Blood pH 7.293 (7.350-7.450) Arterial Blood Partial Pressure CO2 88.7 mmHg (35.0-45.0) *H Arterial Blood Partial Pressure O2 70.8 mmHg (75.0-100.0) L Arterial Blood HCO3 42.0 mmol/L (22.0-26.0) H Arterial Blood Oxygen Saturation 93.0 % (92.0-98.0) Arterial Blood Base Excess 12.3 Lalito Test Positive Current Medications Medications (Trade) Dose Ordered Sig/Selvin Route PRN Reason Start Time Stop Time Status Last Admin Dose Admin Acetazolamide (Diamox) 250 mg TWICE A DAY ORAL 07/16/17 18:00 08/15/17 17:59 07/17/17 09:11 Albuterol/ Ipratropium (Albuterol/ Ipratropium) 3 ml Q4H PRN HHN Shortness of Breath 07/15/17 13:15 07/17/17 23:59 07/16/17 01:13 Albuterol/ Ipratropium (Albuterol/ Ipratropium) 3 ml Q4H PRN HHN sob 07/16/17 13:00 07/21/17 12:59 Albuterol/ Ipratropium (Albuterol/ Ipratropium) 3 ml TIDRT HHN 07/15/17 19:00 07/20/17 18:59 07/17/17 07:10 Amlodipine Besylate (Norvasc) 5 mg DAILY ORAL 07/16/17 09:00 08/09/17 09:44 07/17/17 09:15 Clonazepam (KlonoPIN) 1 mg BEDTIME ORAL 07/15/17 21:00 07/21/17 20:59 07/16/17 20:33 Clonidine HCl (Catapres) 0.1 mg EVERY 6 HOURS PRN ORAL For High Blood Pressure>160 07/15/17 12:00 08/14/17 07:44 Docusate Sodium (Colace) 100 mg TWICE A DAY ORAL 07/15/17 18:00 08/09/17 09:44 07/15/17 17:21 Escitalopram Oxalate (Lexapro) 20 mg DAILY ORAL 07/16/17 09:00 08/14/17 08:59 07/17/17 09:11 Gabapentin (Neurontin) 100 mg THREE TIMES A DAY ORAL 07/15/17 13:00 08/09/17 09:44 07/17/17 09:11 Heparin Sodium (Porcine) (Heparin 5000 units/ml) 5,000 units EVERY 12 HOURS SUBQ 07/15/17 21:00 08/09/17 09:44 07/17/17 09:12 Levetiracetam (Keppra) 500 mg Q12HR ORAL 07/15/17 21:00 08/09/17 09:44 07/17/17 09:11 Levofloxacin 150 ml @ 100 mls/hr Q24H IVPB 07/15/17 17:00 07/22/17 16:59 07/16/17 17:21 Methylprednisolone Sodium Succinate (Solu-MEDROL) 40 mg BID IVP 07/15/17 18:00 08/14/17 08:59 07/17/17 09:11 Morphine Sulfate (Morphine Sulfate) 1 mg EVERY 6 HOURS PRN IVP Severe Pain (Pain Scale 7-10) 07/15/17 12:00 07/17/17 23:59 07/17/17 05:50 Piperacillin Sod/ Tazobactam Sod 3.375 gm/Sodium Chloride 110 ml @ 27.5 mls/hr EVERY 8 HOURS IVPB 07/15/17 14:00 07/20/17 13:59 07/17/17 05:39 Theophylline (Paresh-Dur) 100 mg EVERY 12 HOURS ORAL 07/15/17 21:00 08/09/17 09:44 07/17/17 09:11 Magdalena Jones M.D. Jul 17, 2017 10:11
--- NOTE | 2017-07-17 11:46 | Pulmonology Progress Note ---
Assessment/Plan Problems: (1) Acute hypercapnic respiratory failure (2) Asthma exacerbation (3) Aspiration pneumonia (4) Ventriculo-peritoneal shunt status Assessment/Plan on and off bipap wbc decreasing continue abx, on Tamiflu now, check cultures check electrolytes. cxr reviewed, not much changed in the last few days, RML still present. Subjective ROS Limited/Unobtainable: No Constitutional: Reports: no symptoms HEENT: Repors: no symptoms Respiratory: Reports: no symptoms Cardiovascular: Reports: no symptoms Allergies: Coded Allergies: No Known Allergies (Unverified , 02/19/17) Objective Last 24 Hour Vital Signs Date Time Temp Pulse Resp B/P (MAP) Pulse Ox O2 Delivery O2 Flow Rate FiO2 07/17/17 10:59 95 30 96 Facial 60 07/17/17 09:15 93 140/63 07/17/17 08:00 60 07/17/17 08:00 97.8 92 19 147/78 98 Bi-pap 60 07/17/17 08:00 93 07/17/17 07:25 99 23 98 Bi-pap 50 07/17/17 07:14 Bi-pap 60 07/17/17 07:14 97 Bi-pap 50 07/17/17 07:13 97 26 97 Bi-pap 50 07/17/17 07:11 97 26 97 Facial 60 07/17/17 04:54 97 28 99 Facial 60 07/17/17 04:00 90 07/17/17 04:00 60 07/17/17 04:00 97.8 89 24 140/63 98 Bi-pap 60 07/17/17 02:34 98 26 99 Facial 60 07/17/17 01:07 90 27 99 Facial 60 07/17/17 00:00 98.4 108 24 130/62 99 Bi-pap 60 07/17/17 00:00 60 07/17/17 00:00 104 07/16/17 23:05 93 28 99 Facial 60 07/16/17 20:53 84 34 99 Facial 60 07/16/17 20:52 86 34 99 Bi-pap 60 07/16/17 20:38 60 07/16/17 20:38 97 Bi-pap 60 07/16/17 20:38 99 34 99 Bi-pap 60 07/16/17 20:38 Bi-pap 60 1/7/18 20:00 95 07/16/17 20:00 60 07/16/17 20:00 98.2 97 29 136/90 99 Bi-pap 60 07/16/17 19:30 86 26 97 Facial 60 07/16/17 16:57 80 24 96 Facial 60 07/16/17 16:35 98.0 07/16/17 16:00 98.8 107 29 140/76 95 Bi-pap 60 07/16/17 16:00 103 07/16/17 16:00 60 07/16/17 15:25 99 27 95 Facial 60 07/16/17 13:20 80 24 98 Bi-pap 60 07/16/17 13:00 85 26 96 Bi-pap 60 07/16/17 12:00 60 07/16/17 12:00 98 07/16/17 12:00 98.0 92 24 144/56 94 Bi-pap 60 Intake and Output 07/16/17 07/17/17 19:00 07:00 Intake Total 366.0 ml 631.0 ml Output Total 400 ml Balance -34.0 ml 631.0 ml Intake Oral 480 ml IV Total 366.0 ml 151.0 ml Output Urine Total 400 ml # Voids 5 10 # Bowel Movements 5 4 General Appearance: WD/WN HEENT: normocephalic, anicteric Respiratory/Chest: chest wall non-tender, normal breath sounds Breasts: no masses Cardiovascular: regular rhythm Genitourinary: normal external genitalia Extremities: no clubbing Skin: no rash, no lesions Laboratory Tests 07/17/17 03:55: White Blood Count 12.4H, Red Blood Count 3.15L, Hemoglobin 9.7L, Hematocrit 32.2L, Mean Corpuscular Volume 102H, Mean Corpuscular Hemoglobin 30.7, Mean Corpuscular Hemoglobin Concent 30.1L, Red Cell Distribution Width 15.2H, Platelet Count 269, Mean Platelet Volume 6.8, Neutrophils (%) (Auto) , Lymphocytes (%) (Auto) , Monocytes (%) (Auto) , Eosinophils (%) (Auto) , Basophils (%) (Auto) , Sodium Level 143, Potassium Level 4.1, Chloride Level 103 , Carbon Dioxide Level 37H, Anion Gap 3L, Blood Urea Nitrogen 13, Creatinine 0.9 , Estimat Glomerular Filtration Rate > 60, Glucose Level 69L, Calcium Level 8.3L 1/8/18 09:50: Arterial Blood pH 7.293L, Arterial Blood Partial Pressure CO2 88.7*H, Arterial Blood Partial Pressure O2 70.8L, Arterial Blood HCO3 42.0H, Arterial Blood Oxygen Saturation 93.0, Arterial Blood Base Excess 12.3, Lalito Test Positive Current Medications Medications (Trade) Dose Ordered Sig/Selvin Route PRN Reason Start Time Stop Time Status Last Admin Dose Admin Acetazolamide (Diamox) 250 mg TWICE A DAY ORAL 07/16/17 18:00 08/15/17 17:59 07/17/17 09:11 Albuterol/ Ipratropium (Albuterol/ Ipratropium) 3 ml Q4H PRN HHN Shortness of Breath 07/15/17 13:15 07/17/17 23:59 07/16/17 01:13 Albuterol/ Ipratropium (Albuterol/ Ipratropium) 3 ml Q4H PRN HHN sob 07/16/17 13:00 07/21/17 12:59 Albuterol/ Ipratropium (Albuterol/ Ipratropium) 3 ml TIDRT HHN 07/15/17 19:00 07/20/17 18:59 07/17/17 07:10 Amlodipine Besylate (Norvasc) 5 mg DAILY ORAL 07/16/17 09:00 08/09/17 09:44 07/17/17 09:15 Clonazepam (KlonoPIN) 1 mg BEDTIME ORAL 07/15/17 21:00 07/21/17 20:59 07/16/17 20:33 Clonidine HCl (Catapres) 0.1 mg EVERY 6 HOURS PRN ORAL For High Blood Pressure>160 07/15/17 12:00 08/14/17 07:44 Docusate Sodium (Colace) 100 mg TWICE A DAY ORAL 07/15/17 18:00 08/09/17 09:44 07/15/17 17:21 Escitalopram Oxalate (Lexapro) 20 mg DAILY ORAL 07/16/17 09:00 08/14/17 08:59 07/17/17 09:11 Gabapentin (Neurontin) 100 mg THREE TIMES A DAY ORAL 07/15/17 13:00 08/09/17 09:44 07/17/17 09:11 Heparin Sodium (Porcine) (Heparin 5000 units/ml) 5,000 units EVERY 12 HOURS SUBQ 07/15/17 21:00 08/09/17 09:44 07/17/17 09:12 Levetiracetam (Keppra) 500 mg Q12HR ORAL 07/15/17 21:00 08/09/17 09:44 07/17/17 09:11 Levofloxacin 150 ml @ 100 mls/hr Q24H IVPB 07/15/17 17:00 07/22/17 16:59 07/16/17 17:21 Methylprednisolone Sodium Succinate (Solu-MEDROL) 40 mg BID IVP 07/15/17 18:00 08/14/17 08:59 07/17/17 09:11 Morphine Sulfate (Morphine Sulfate) 1 mg EVERY 6 HOURS PRN IVP Severe Pain (Pain Scale 7-10) 07/15/17 12:00 07/17/17 23:59 07/17/17 05:50 Theophylline (Paresh-Dur) 100 mg EVERY 12 HOURS ORAL 07/15/17 21:00 08/09/17 09:44 07/17/17 09:11 CRISTINA BRAMBILA Jul 17, 2017 11:46
[2017-07-17 12:00] VITALS: BP 136/73
[2017-07-17 16:00] VITALS: BP 119/92
[2017-07-17 20:00] VITALS: BP 121/71
--- NOTE | 2017-07-17 21:48 | Diagnostic Imaging Report ---
Indication: Dyspnea Comparison: 07/15/2017 A single view chest radiograph was obtained. Findings: Patchy infiltrates are present within the lungs especially in the right lung. Findings appear unchanged from last study. Right FENCE RIDER shunt noted. Heart size is stable. IMPRESSION: No change from the prior exam. Bilateral infiltrates
--- NOTE | 2017-07-17 22:29 | General Progress Note ---
Assessment/Plan Status: unchanged Assessment/Plan ASSESSMENT AND RECS: #. Anemia secondary to chronic disease. Continue to closely monitor. --> anemia w/u has been ordered and reviewed, no aid noted #. Shortness of breath, related to underlying asthma exacerbation. On Levaquin for bacterial bronchitis. Continue per ID service. --> on bipap, pulm following #. Asthma exacerbation with infiltrates noted. Continue Tamiflu. #. Elevated bicarb, potentially related to acidosis, retention of CO2. #. Hypoglycemia, potentially related to steroids. #. Leukocytosis related to underlying steroids. #. Seizure disorder, currently stable #. Malnutrition Subjective Date patient seen: Jul 17, 2017 Constitutional: Denies: no symptoms, chills, diaphoresis, fever, malaise, weakness, other HEENT: Denies: no symptoms, eye pain, blurred vision, tearing, double vision, ear pain, ear discharge, nose pain, nose congestion, throat pain, throat swelling, mouth pain, mouth swelling, other Cardiovascular: Denies: no symptoms, chest pain, edema, irregular heart rate, lightheadedness, palpitations, syncope, other Respiratory: Denies: no symptoms, cough, orthopnea, shortness of breath, SOB with excertion, SOB at rest, sputum, stridor, wheezing, other Gastrointestinal/Abdominal: Denies: no symptoms, abdomen distended, abdominal pain, black stools, tarry stools, blood in stool, constipated, diarrhea, difficulty swallowing, nausea, poor appetite, poor fluid intake, rectal bleeding , vomiting, other Genitourinary: Denies: no symptoms, burning, discharge, frequency, flank pain, hematuria, incontinence, pain, urgency, other Neurologic/Psychiatric: Denies: no symptoms, anxiety, depressed, emotional problems, headache, numbness, paresthesia, pre-existing deficit, seizure, tingling, tremors, weakness, other Hematologic/Lymphatic: Reports: anemia Allergies: Coded Allergies: No Known Allergies (Unverified , 02/19/17) Subjective Remains on bipap, H/H stable. Afebrile. No chills. Objective Last 24 Hour Vital Signs Date Time Temp Pulse Resp B/P (MAP) Pulse Ox O2 Delivery O2 Flow Rate FiO2 07/17/17 20:58 102 27 97 Facial 60 07/17/17 20:00 114 07/17/17 20:00 97.8 109 26 121/71 95 Bi-pap 60 07/17/17 20:00 60 07/17/17 19:29 104 29 98 Bi-pap 60 07/17/17 19:20 97 Bi-pap 60 07/17/17 19:20 Bi-pap 60 07/17/17 19:18 111 35 97 Facial 60 07/17/17 19:18 111 35 97 Bi-pap 60 07/17/17 16:48 91 26 96 Facial 60 07/17/17 16:00 94 07/17/17 16:00 97.5 75 19 119/92 100 Bi-pap 60 07/17/17 16:00 60 07/17/17 14:45 106 28 96 Facial 60 07/17/17 13:09 101 26 97 Bi-pap 50 07/17/17 13:05 96 28 96 Facial 60 07/17/17 13:04 102 32 96 Bi-pap 50 07/17/17 12:40 97.8 07/17/17 12:00 60 07/17/17 12:00 97.8 92 19 136/73 100 Bi-pap 60 07/17/17 12:00 99 07/17/17 10:59 95 30 96 Facial 60 07/17/17 09:15 93 140/63 07/17/17 08:00 60 07/17/17 08:00 97.8 92 19 147/78 98 Bi-pap 60 07/17/17 08:00 93 07/17/17 07:25 99 23 98 Bi-pap 50 07/17/17 07:14 Bi-pap 60 07/17/17 07:14 97 Bi-pap 50 07/17/17 07:13 97 26 97 Bi-pap 50 07/17/17 07:11 97 26 97 Facial 60 07/17/17 04:54 97 28 99 Facial 60 07/17/17 04:00 90 07/17/17 04:00 60 07/17/17 04:00 97.8 89 24 140/63 98 Bi-pap 60 07/17/17 02:34 98 26 99 Facial 60 07/17/17 01:07 90 27 99 Facial 60 07/17/17 00:00 98.4 108 24 130/62 99 Bi-pap 60 07/17/17 00:00 60 07/17/17 00:00 104 07/16/17 23:05 93 28 99 Facial 60 Intake and Output 07/16/17 07/17/17 19:00 07:00 Intake Total 366.0 ml 631.0 ml Output Total 400 ml Balance -34.0 ml 631.0 ml Intake Oral 480 ml IV Total 366.0 ml 151.0 ml Output Urine Total 400 ml # Voids 5 10 # Bowel Movements 5 4 Laboratory Tests 07/17/17 03:55: White Blood Count 12.4H, Red Blood Count 3.15L, Hemoglobin 9.7L, Hematocrit 32.2L, Mean Corpuscular Volume 102H, Mean Corpuscular Hemoglobin 30.7, Mean Corpuscular Hemoglobin Concent 30.1L, Red Cell Distribution Width 15.2H, Platelet Count 269, Mean Platelet Volume 6.8, Neutrophils (%) (Auto) , Lymphocytes (%) (Auto) , Monocytes (%) (Auto) , Eosinophils (%) (Auto) , Basophils (%) (Auto) , Sodium Level 143, Potassium Level 4.1, Chloride Level 103 , Carbon Dioxide Level 37H, Anion Gap 3L, Blood Urea Nitrogen 13, Creatinine 0.9 , Estimat Glomerular Filtration Rate > 60, Glucose Level 69L, Calcium Level 8.3L 07/17/17 09:50: Arterial Blood pH 7.293L, Arterial Blood Partial Pressure CO2 88.7*H, Arterial Blood Partial Pressure O2 70.8L, Arterial Blood HCO3 42.0H, Arterial Blood Oxygen Saturation 93.0, Arterial Blood Base Excess 12.3, Lalito Test Positive Height (Feet): 5 Height (Inches): 5.00 Weight (Pounds): 250 General Appearance: no apparent distress EENT: normal ENT inspection Neck: normal alignment, supple Cardiovascular: normal rate, regularly irregular Respiratory/Chest: lungs clear, normal breath sounds Abdomen: non tender, soft Uche Leon Jul 17, 2017 22:29
[2017-07-18] VITALS: BP 118/74
[2017-07-18] MEDS: Morphine Sulfate 2mg/ml Inj IVP PRN ×2 (03:38→12:21)
[2017-07-18 04:00] VITALS: BP_SYST 139; BP_SYST 142; BP_DIAS 69; BP_DIAS 75
[2017-07-18 05:18] LABS: BASOPHILS % (AUTO) 0.4 % (0.0-2.0); EOSINOPHILS % (AUTO) 0.3 % (0.0-3.0); HEMATOCRIT 35.6 % (37.0-47.0); HEMOGLOBIN 10.7 G/DL (12.0-16.0); MEAN CORPUSCULAR VOLUME 104 FL (80-99); MONOCYTES % (AUTO) 4.7 % (1.0-10.0); NEUTROPHILS % (AUTO) 79.6 % (45.0-75.0); PLATELET COUNT 300 K/UL (150-450); RED BLOOD COUNT 3.44 M/UL (4.20-5.40); RED CELL DISTRIBUTION WIDTH 15.4 % (11.6-14.8); WHITE BLOOD COUNT 15.1 K/UL (4.8-10.8)
[2017-07-18 06:28] LABS: ALANINE AMINOTRANSFERASE 13 U/L (12-78); ALBUMIN 2.9 G/DL (3.4-5.0); ALBUMIN/GLOBULIN RATIO 0.7 (1.0-2.7); ALKALINE PHOSPHATASE 49 U/L (46-116); ANION GAP 4 mmol/L (5-15); ASPARTATE AMINO TRANSFERASE 13 U/L (15-37); BILIRUBIN,TOTAL 0.2 MG/DL (0.2-1.0); BLOOD UREA NITROGEN 16 mg/dL (7-18); CALCIUM 8.1 MG/DL (8.5-10.1); CARBON DIOXIDE 37 MMOL/L (21-32); CHLORIDE 103 MMOL/L (98-107); POTASSIUM 3.5 MMOL/L (3.5-5.1); SODIUM 144 MMOL/L (136-145)
[2017-07-18] MEDS: Albuterol/Ipratropium 3ml neb HHN SCH ×3 (07:11→20:11)
[2017-07-18 08:00] VITALS: BP 133/76
[2017-07-18] MEDS: Theophylline ER 100mg ORAL SCH ×2 (08:22→20:22)
[2017-07-18] MEDS: Heparin 5000 units/ml inj SUBQ SCH ×2 (08:30→20:24)
[2017-07-18] MEDS: Docusate 100mg cap ORAL SCH ×2 (09:00→18:00)
[2017-07-18] MEDS ORDERED: Solu-MEDROL 40mg Inj IVP SCH (09:00)
--- NOTE | 2017-07-18 10:35 | Pulmonology Progress Note ---
Assessment/Plan Problems: (1) Acute hypercapnic respiratory failure (2) Asthma exacerbation (3) Aspiration pneumonia (4) Ventriculo-peritoneal shunt status Assessment/Plan on and off bipap wbc decreasing dc IV solumedrol, start on prednisone continue abx, on Tamiflu now, check cultures check electrolytes. cxr reviewed, not much changed in the last few days, RML still present. Psych evaluation. Subjective ROS Limited/Unobtainable: No Interval Events: still needs BIPAP, can't come off, becomes anxious Allergies: Coded Allergies: No Known Allergies (Unverified , 02/19/17) Objective Last 24 Hour Vital Signs Date Time Temp Pulse Resp B/P (MAP) Pulse Ox O2 Delivery O2 Flow Rate FiO2 07/18/17 10:15 100 134/89 07/18/17 09:10 104 30 96 Facial 60 07/18/17 08:00 99.4 120 30 133/76 99 Bi-pap 60 07/18/17 08:00 60 07/18/17 08:00 115 07/18/17 07:22 106 33 98 Bi-pap 60 07/18/17 07:14 Bi-pap 60 07/18/17 07:14 97 Bi-pap 60 07/18/17 07:11 109 31 97 Bi-pap 60 07/18/17 07:10 108 31 97 Facial 60 07/18/17 05:23 98 29 97 Facial 60 07/18/17 04:08 98.4 07/18/17 04:00 97.7 110 32 139/69 99 Bi-pap 60 07/18/17 04:00 60 07/18/17 04:00 97.7 67 32 142/75 97 Bi-pap 60 07/18/17 04:00 114 07/18/17 03:16 111 07/18/17 02:58 101 27 96 Facial 60 07/18/17 01:14 95 25 97 Facial 60 07/18/17 00:00 98.4 116 35 118/74 99 Bi-pap 60 07/18/17 00:00 60 07/17/17 22:58 110 26 96 Facial 60 07/17/17 20:58 102 27 97 Facial 60 07/17/17 20:00 114 07/17/17 20:00 97.8 109 26 121/71 95 Bi-pap 60 1/8/18 20:00 60 07/17/17 19:29 104 29 98 Bi-pap 60 07/17/17 19:20 97 Bi-pap 60 07/17/17 19:20 Bi-pap 60 07/17/17 19:18 111 35 97 Facial 60 07/17/17 19:18 111 35 97 Bi-pap 60 07/17/17 16:48 91 26 96 Facial 60 07/17/17 16:00 94 07/17/17 16:00 97.5 75 19 119/92 100 Bi-pap 60 07/17/17 16:00 60 07/17/17 14:45 106 28 96 Facial 60 07/17/17 13:09 101 26 97 Bi-pap 50 07/17/17 13:05 96 28 96 Facial 60 07/17/17 13:04 102 32 96 Bi-pap 50 07/17/17 12:40 97.8 07/17/17 12:00 60 07/17/17 12:00 97.8 92 19 136/73 100 Bi-pap 60 07/17/17 12:00 99 07/17/17 10:59 95 30 96 Facial 60 Intake and Output 07/17/17 07/18/17 19:00 07:00 Intake Total 1069.0 ml 240 ml Balance 1069.0 ml 240 ml Intake Oral 900 ml 240 ml IV Total 169.0 ml # Voids 5 2 # Bowel Movements 4 4 General Appearance: WD/WN HEENT: normocephalic Respiratory/Chest: chest wall non-tender, lungs clear Breasts: no masses Cardiovascular: normal peripheral pulses Abdomen: normal bowel sounds, soft, non tender Extremities: no cyanosis Neurologic/Psychiatric: 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 normal, no motor/sensory deficits Lymphatic: no neck adenopathy Musculoskeletal: normal muscle bulk Microbiology Date/Time Source Procedure Growth Status 07/17/17 09:40 Stool Clostridium difficile Toxin Assay - Final Complete Laboratory Tests 07/18/17 03:35: White Blood Count 15.1H, Red Blood Count 3.44L, Hemoglobin 10.7L, Hematocrit 35.6L, Mean Corpuscular Volume 104H, Mean Corpuscular Hemoglobin 31.3H, Mean Corpuscular Hemoglobin Concent 30.2L, Red Cell Distribution Width 15.4H, Platelet Count 300, Mean Platelet Volume 7.0, Neutrophils (%) (Auto) 79.6H, Lymphocytes (%) (Auto) 15.0L, Monocytes (%) (Auto) 4.7, Eosinophils (%) (Auto) 0.3, Basophils (%) (Auto) 0.4, Sodium Level 144, Potassium Level 3.5, Chloride Level 103, Carbon Dioxide Level 37H, Anion Gap 4L, Blood Urea Nitrogen 16, Creatinine 1.0, Estimat Glomerular Filtration Rate > 60, Glucose Level 138H, Calcium Level 8.1L, Total Bilirubin 0.2, Aspartate Amino Transf (AST/SGOT) 13L, Alanine Aminotransferase (ALT/SGPT) 13, Alkaline Phosphatase 49, Pro-B-Type Natriuretic Peptide 72, Total Protein 7.1, Albumin 2.9L, Globulin 4.2, Albumin/ Globulin Ratio 0.7L, Coccidioides Antibody (Comp Fix) [Pending], Cryptococcus Antigen [Pending] Current Medications Medications (Trade) Dose Ordered Sig/Selvin Route PRN Reason Start Time Stop Time Status Last Admin Dose Admin Acetazolamide (Diamox) 250 mg TWICE A DAY ORAL 07/16/17 18:00 08/15/17 17:59 07/18/17 10:14 Albuterol/ Ipratropium (Albuterol/ Ipratropium) 3 ml Q4H PRN HHN sob 07/16/17 13:00 07/21/17 12:59 Albuterol/ Ipratropium (Albuterol/ Ipratropium) 3 ml TIDRT HHN 07/15/17 19:00 07/20/17 18:59 07/18/17 07:11 Amlodipine Besylate (Norvasc) 5 mg DAILY ORAL 07/16/17 09:00 08/09/17 09:44 07/18/17 10:15 Clonazepam (KlonoPIN) 1 mg BEDTIME ORAL 07/15/17 21:00 07/21/17 20:59 07/17/17 20:06 Clonidine HCl (Catapres) 0.1 mg EVERY 6 HOURS PRN ORAL For High Blood Pressure>160 07/15/17 12:00 08/14/17 07:44 Docusate Sodium (Colace) 100 mg TWICE A DAY ORAL 07/15/17 18:00 08/09/17 09:44 07/15/17 17:21 Escitalopram Oxalate (Lexapro) 20 mg DAILY ORAL 07/16/17 09:00 08/14/17 08:59 07/18/17 08:22 Gabapentin (Neurontin) 100 mg THREE TIMES A DAY ORAL 07/15/17 13:00 08/09/17 09:44 07/18/17 08:22 Heparin Sodium (Porcine) (Heparin 5000 units/ml) 5,000 units EVERY 12 HOURS SUBQ 07/15/17 21:00 08/09/17 09:44 07/18/17 08:30 Levetiracetam (Keppra) 500 mg Q12HR ORAL 07/15/17 21:00 08/09/17 09:44 07/18/17 08:22 Levofloxacin 150 ml @ 100 mls/hr Q24H IVPB 07/15/17 17:00 07/22/17 16:59 07/17/17 17:59 Methylprednisolone Sodium Succinate (Solu-MEDROL) 40 mg DAILY IVP 07/18/17 09:00 08/14/17 08:59 07/18/17 10:14 Morphine Sulfate (Morphine Sulfate) 1 mg Q6H PRN IVP Severe Breakthru Pain (>7) 07/18/17 03:30 07/25/17 03:29 07/18/17 03:38 Theophylline (Paresh-Dur) 100 mg EVERY 12 HOURS ORAL 07/15/17 21:00 08/09/17 09:44 07/18/17 08:22 CRISTINA BRAMBILA Jul 18, 2017 10:35
--- NOTE | 2017-07-18 11:38 | Infectious Diseases Prog Note ---
Assessment/Plan Assessment/Plan Asthma exacerbation- r/o Influenza, r/o bacterial bronchitis-possible PNA- r/o fungal PNA- possibly ANNETTE, ?obesity hypoventilation syndrome contributing BiPAP round the clock , C02 retention -CXR 07/13: Right greater than left patchy and nodular airspace opacities are again demonstrated, unchanged. There is probably a small amount of fluid along the major fissure. -CXR: Bilateral diffuse infiltrates versus edema -sp cx normal tristen Leukocytosis, (on steroids), slightly worst today -Cdiff 07/17 neg -Bcx Neg x4 -influenza test ordered, never done- treated empirically Plan: - Continue Levaquin d# /5 -07/17 SP Zosyn #7 -07/15 SP Tamiflu #5/ -07/11 SP Levaquin #3 -Monitor CBC/BMP, temperatures; trend WBC- if continues to worsen will repeat cultures -aspiration precautions -f/u CrAg, cocci ab -HIV ab Subjective Allergies: Coded Allergies: No Known Allergies (Unverified , 02/19/17) Subjective afebrile on off bipap mild increase leukocytosis on steroids Objective Vital Signs Last 24 Hour Vital Signs Date Time Temp Pulse Resp B/P (MAP) Pulse Ox O2 Delivery O2 Flow Rate FiO2 07/18/17 10:49 108 31 97 Facial 60 07/18/17 10:15 100 134/89 07/18/17 09:10 104 30 96 Facial 60 07/18/17 08:00 99.4 120 30 133/76 99 Bi-pap 60 07/18/17 08:00 60 07/18/17 08:00 115 07/18/17 07:22 106 33 98 Bi-pap 60 07/18/17 07:14 Bi-pap 60 07/18/17 07:14 97 Bi-pap 60 07/18/17 07:11 109 31 97 Bi-pap 60 07/18/17 07:10 108 31 97 Facial 60 07/18/17 05:23 98 29 97 Facial 60 07/18/17 04:08 98.4 07/18/17 04:00 97.7 110 32 139/69 99 Bi-pap 60 07/18/17 04:00 60 07/18/17 04:00 97.7 67 32 142/75 97 Bi-pap 60 07/18/17 04:00 114 07/18/17 03:16 111 07/18/17 02:58 101 27 96 Facial 60 07/18/17 01:14 95 25 97 Facial 60 07/18/17 00:00 98.4 116 35 118/74 99 Bi-pap 60 07/18/17 00:00 60 07/17/17 22:58 110 26 96 Facial 60 07/17/17 20:58 102 27 97 Facial 60 07/17/17 20:00 114 07/17/17 20:00 97.8 109 26 121/71 95 Bi-pap 60 07/17/17 20:00 60 07/17/17 19:29 104 29 98 Bi-pap 60 07/17/17 19:20 97 Bi-pap 60 07/17/17 19:20 Bi-pap 60 07/17/17 19:18 111 35 97 Facial 60 07/17/17 19:18 111 35 97 Bi-pap 60 07/17/17 16:48 91 26 96 Facial 60 07/17/17 16:00 94 07/17/17 16:00 97.5 75 19 119/92 100 Bi-pap 60 07/17/17 16:00 60 07/17/17 14:45 106 28 96 Facial 60 07/17/17 13:09 101 26 97 Bi-pap 50 07/17/17 13:05 96 28 96 Facial 60 07/17/17 13:04 102 32 96 Bi-pap 50 07/17/17 12:40 97.8 07/17/17 12:00 60 07/17/17 12:00 97.8 92 19 136/73 100 Bi-pap 60 07/17/17 12:00 99 Height (Feet): 5 Height (Inches): 5.00 Weight (Pounds): 250 Objective General Appearance: normal inspection, alert, non-toxic, bipap mask on placed HEENT: normocephalic, atraumatic bilateral eye PERRL, bilateral eye EOMI Neck: supple Respiratory: wheezing Cardiovascular regular rate, rhythm, no edema Gastrointestinal: normal inspection, normal bowel sounds, non tender, soft, no mass, no peritonitis, non-distended, no guarding, no hernia, no pulsatile mass Genitourinary: no CVA tenderness Musculoskeletal: normal inspection, back normal, normal range of motion, no calf tenderness Neurologic: normal inspection, alert, oriented x3, responsive, poultry boner III-XII nml as tested, motor strength/tone normal, cerebellar normal, normal gait, speech normal Skin: normal inspection, normal color, no rash Lymphatic: normal inspection, no adenopathy. Microbiology Date/Time Source Procedure Growth Status 07/17/17 09:40 Stool Clostridium difficile Toxin Assay - Final Complete Laboratory Tests Test 07/18/17 03:35 White Blood Count 15.1 K/UL (4.8-10.8) H Red Blood Count 3.44 M/UL (4.20-5.40) L Hemoglobin 10.7 G/DL (12.0-16.0) L Hematocrit 35.6 % (37.0-47.0) L Mean Corpuscular Volume 104 FL (80-99) H Mean Corpuscular Hemoglobin 31.3 PG (27.0-31.0) H Mean Corpuscular Hemoglobin Concent 30.2 G/DL (32.0-36.0) L Red Cell Distribution Width 15.4 % (11.6-14.8) H Platelet Count 300 K/UL (150-450) Mean Platelet Volume 7.0 FL (6.5-10.1) Neutrophils (%) (Auto) 79.6 % (45.0-75.0) H Lymphocytes (%) (Auto) 15.0 % (20.0-45.0) L Monocytes (%) (Auto) 4.7 % (1.0-10.0) Eosinophils (%) (Auto) 0.3 % (0.0-3.0) Basophils (%) (Auto) 0.4 % (0.0-2.0) Sodium Level 144 MMOL/L (136-145) Potassium Level 3.5 MMOL/L (3.5-5.1) Chloride Level 103 MMOL/L (98-107) Carbon Dioxide Level 37 MMOL/L (21-32) H Anion Gap 4 mmol/L (5-15) L Blood Urea Nitrogen 16 mg/dL (7-18) Creatinine 1.0 MG/DL (0.55-1.30) Estimat Glomerular Filtration Rate > 60 mL/min (>60) Glucose Level 138 MG/DL (74-106) H Calcium Level 8.1 MG/DL (8.5-10.1) L Total Bilirubin 0.2 MG/DL (0.2-1.0) Aspartate Amino Transf (AST/SGOT) 13 U/L (15-37) L Alanine Aminotransferase (ALT/SGPT) 13 U/L (12-78) Alkaline Phosphatase 49 U/L (46-116) Pro-B-Type Natriuretic Peptide 72 pg/mL (0-125) Total Protein 7.1 G/DL (6.4-8.2) Albumin 2.9 G/DL (3.4-5.0) L Globulin 4.2 g/dL Albumin/Globulin Ratio 0.7 (1.0-2.7) L Coccidioides Antibody (Comp Fix) Pending Cryptococcus Antigen Pending Current Medications Medications (Trade) Dose Ordered Sig/Selvin Route PRN Reason Start Time Stop Time Status Last Admin Dose Admin Acetazolamide (Diamox) 250 mg TWICE A DAY ORAL 07/16/17 18:00 08/15/17 17:59 07/18/17 10:14 Albuterol/ Ipratropium (Albuterol/ Ipratropium) 3 ml Q4H PRN HHN sob 07/16/17 13:00 07/21/17 12:59 Albuterol/ Ipratropium (Albuterol/ Ipratropium) 3 ml TIDRT HHN 07/15/17 19:00 07/20/17 18:59 07/18/17 07:11 Amlodipine Besylate (Norvasc) 5 mg DAILY ORAL 07/16/17 09:00 08/09/17 09:44 07/18/17 10:15 Clonazepam (KlonoPIN) 1 mg BEDTIME ORAL 07/15/17 21:00 07/21/17 20:59 07/17/17 20:06 Clonidine HCl (Catapres) 0.1 mg EVERY 6 HOURS PRN ORAL For High Blood Pressure>160 07/15/17 12:00 08/14/17 07:44 Docusate Sodium (Colace) 100 mg TWICE A DAY ORAL 07/15/17 18:00 08/09/17 09:44 07/15/17 17:21 Escitalopram Oxalate (Lexapro) 20 mg DAILY ORAL 07/16/17 09:00 08/14/17 08:59 07/18/17 08:22 Gabapentin (Neurontin) 100 mg THREE TIMES A DAY ORAL 07/15/17 13:00 08/09/17 09:44 07/18/17 08:22 Heparin Sodium (Porcine) (Heparin 5000 units/ml) 5,000 units EVERY 12 HOURS SUBQ 07/15/17 21:00 08/09/17 09:44 07/18/17 08:30 Levetiracetam (Keppra) 500 mg Q12HR ORAL 07/15/17 21:00 08/09/17 09:44 07/18/17 08:22 Levofloxacin 150 ml @ 100 mls/hr Q24H IVPB 07/15/17 17:00 07/22/17 16:59 07/17/17 17:59 Morphine Sulfate (Morphine Sulfate) 1 mg Q6H PRN IVP Severe Breakthru Pain (>7) 07/18/17 03:30 07/25/17 03:29 07/18/17 03:38 Prednisone (predniSONE) 40 mg DAILY ORAL 07/19/17 09:00 08/18/17 08:59 Theophylline (Paresh-Dur) 100 mg EVERY 12 HOURS ORAL 07/15/17 21:00 08/09/17 09:44 07/18/17 08:22 Magdalena Jones M.D. Jul 18, 2017 11:38
[2017-07-18 12:00] VITALS: BP 130/72
--- NOTE | 2017-07-18 14:38 | Diagnostic Imaging Report ---
Indication: Shortness of breath Technique: XRAY Chest 1v Comparison: 07/13/2017 Findings: Right-sided catheter is again noted. Cardiac mediastinal silhouette is stable. Bilateral patchy infiltrates and linear atelectasis are again noted. The osseous structures are stable. Impression: No significant change from 07/13/2017.
[2017-07-18 16:00] VITALS: BP 134/69
[2017-07-18] MEDS ORDERED: NS 500ML ONE (17:44)
[2017-07-18] MEDS ORDERED: Tubing IV Secondary IV ONE (17:44)
[2017-07-18] MEDS ORDERED: NS 275ml ONE (17:44)
[2017-07-18 20:00] VITALS: BP 135/70
--- NOTE | 2017-07-18 22:43 | General Progress Note ---
Assessment/Plan Status: unchanged Assessment/Plan ASSESSMENT AND RECS: #. Leukocytosis related to underlying steroids. --> worsening today. Continue to monitor #. Anemia secondary to chronic disease. Continue to closely monitor. --> anemia w/u has been ordered and reviewed, no aid noted --> Blood transfusion not required today. #. Shortness of breath, related to underlying asthma exacerbation. On Levaquin for bacterial bronchitis. Continue per ID service. --> on bipap, pulm following #. Asthma exacerbation with infiltrates noted. Continue Tamiflu. #. Elevated bicarb, potentially related to acidosis, retention of CO2. #. Hypoglycemia, potentially related to steroids. #. Seizure disorder, currently stable #. Malnutrition Cdiff negative, bcx neg x4 Subjective Date patient seen: Jul 18, 2017 Constitutional: Denies: no symptoms, chills, diaphoresis, fever, malaise, weakness, other HEENT: Denies: no symptoms, eye pain, blurred vision, tearing, double vision, ear pain, ear discharge, nose pain, nose congestion, throat pain, throat swelling, mouth pain, mouth swelling, other Cardiovascular: Denies: no symptoms, chest pain, edema, irregular heart rate, lightheadedness, palpitations, syncope, other Respiratory: Denies: no symptoms, cough, orthopnea, shortness of breath, SOB with excertion, SOB at rest, sputum, stridor, wheezing, other Gastrointestinal/Abdominal: Denies: no symptoms, abdomen distended, abdominal pain, black stools, tarry stools, blood in stool, constipated, diarrhea, difficulty swallowing, nausea, poor appetite, poor fluid intake, rectal bleeding , vomiting, other Hematologic/Lymphatic: Reports: other - leukocytosis Allergies: Coded Allergies: No Known Allergies (Unverified , 02/19/17) Subjective On bipap. Leukocytosis worsening. On antibiotics. Objective Last 24 Hour Vital Signs Date Time Temp Pulse Resp B/P (MAP) Pulse Ox O2 Delivery O2 Flow Rate FiO2 07/18/17 21:09 104 32 97 Facial 60 07/18/17 20:00 97.2 117 20 135/70 97 Bi-pap 60 07/18/17 20:00 60 07/18/17 19:26 101 28 99 Bi-pap 60 07/18/17 19:08 109 32 96 Bi-pap 60 07/18/17 19:08 110 31 96 Facial 60 07/18/17 19:06 Bi-pap 60 07/18/17 19:06 96 Bi-pap 60 07/18/17 16:30 115 32 97 Facial 60 07/18/17 16:00 111 07/18/17 16:00 97.9 111 20 134/69 96 Bi-pap 60 07/18/17 16:00 60 07/18/17 14:50 100 31 95 Facial 60 07/18/17 13:24 102 30 98 Bi-pap 60 07/18/17 13:15 106 30 97 Bi-pap 60 07/18/17 13:14 103 30 96 Facial 60 07/18/17 12:00 60 07/18/17 12:00 98.2 113 21 130/72 99 Bi-pap 60 07/18/17 11:42 105 07/18/17 10:49 108 31 97 Facial 60 07/18/17 10:15 100 134/89 07/18/17 09:10 104 30 96 Facial 60 07/18/17 08:00 99.4 120 30 133/76 99 Bi-pap 60 07/18/17 08:00 60 07/18/17 08:00 115 07/18/17 07:22 106 33 98 Bi-pap 60 07/18/17 07:14 Bi-pap 60 07/18/17 07:14 97 Bi-pap 60 07/18/17 07:11 109 31 97 Bi-pap 60 07/18/17 07:10 108 31 97 Facial 60 07/18/17 05:23 98 29 97 Facial 60 07/18/17 04:08 98.4 07/18/17 04:00 97.7 110 32 139/69 99 Bi-pap 60 07/18/17 04:00 60 07/18/17 04:00 97.7 67 32 142/75 97 Bi-pap 60 07/18/17 04:00 114 07/18/17 03:16 111 07/18/17 02:58 101 27 96 Facial 60 07/18/17 01:14 95 25 97 Facial 60 07/18/17 00:00 98.4 116 35 118/74 99 Bi-pap 60 07/18/17 00:00 60 07/17/17 22:58 110 26 96 Facial 60 Intake and Output 07/17/17 07/18/17 19:00 07:00 Intake Total 1069.0 ml 240 ml Balance 1069.0 ml 240 ml Intake Oral 900 ml 240 ml IV Total 169.0 ml # Voids 5 2 # Bowel Movements 4 4 Laboratory Tests 07/18/17 03:35: White Blood Count 15.1H, Red Blood Count 3.44L, Hemoglobin 10.7L, Hematocrit 35.6L, Mean Corpuscular Volume 104H, Mean Corpuscular Hemoglobin 31.3H, Mean Corpuscular Hemoglobin Concent 30.2L, Red Cell Distribution Width 15.4H, Platelet Count 300, Mean Platelet Volume 7.0, Neutrophils (%) (Auto) 79.6H, Lymphocytes (%) (Auto) 15.0L, Monocytes (%) (Auto) 4.7, Eosinophils (%) (Auto) 0.3, Basophils (%) (Auto) 0.4, Sodium Level 144, Potassium Level 3.5, Chloride Level 103, Carbon Dioxide Level 37H, Anion Gap 4L, Blood Urea Nitrogen 16, Creatinine 1.0, Estimat Glomerular Filtration Rate > 60, Glucose Level 138H, Calcium Level 8.1L, Total Bilirubin 0.2, Aspartate Amino Transf (AST/SGOT) 13L, Alanine Aminotransferase (ALT/SGPT) 13, Alkaline Phosphatase 49, Pro-B-Type Natriuretic Peptide 72, Total Protein 7.1, Albumin 2.9L, Globulin 4.2, Albumin/ Globulin Ratio 0.7L, Coccidioides Antibody (Comp Fix) [Pending], Cryptococcus Antigen [Pending] Height (Feet): 5 Height (Inches): 5.00 Weight (Pounds): 250 Cardiovascular: tachycardia Respiratory/Chest: decreased breath sounds Abdomen: non tender Uche Leon Jul 18, 2017 22:43
[2017-07-19] VITALS: BP 143/78
[2017-07-19] MEDS: Morphine Sulfate 2mg/ml Inj IVP PRN ×3 (02:37→18:47)
[2017-07-19 04:00] VITALS: BP 130/75
[2017-07-19 06:26] LABS: BASOPHILS % (AUTO) 0.3 % (0.0-2.0); EOSINOPHILS % (AUTO) 0.2 % (0.0-3.0); HEMATOCRIT 33.9 % (37.0-47.0); HEMOGLOBIN 10.1 G/DL (12.0-16.0); LYMPHOCYTES % (AUTO) 16.5 % (20.0-45.0); MEAN CORPUSCULAR VOLUME 103 FL (80-99); MONOCYTES % (AUTO) 5.7 % (1.0-10.0); NEUTROPHILS % (AUTO) 77.2 % (45.0-75.0); PLATELET COUNT 239 K/UL (150-450); RED BLOOD COUNT 3.29 M/UL (4.20-5.40); RED CELL DISTRIBUTION WIDTH 16.2 % (11.6-14.8); WHITE BLOOD COUNT 10.6 K/UL (4.8-10.8)
[2017-07-19 06:47] LABS: ALANINE AMINOTRANSFERASE 14 U/L (12-78); ALBUMIN 2.8 G/DL (3.4-5.0); ALBUMIN/GLOBULIN RATIO 0.7 (1.0-2.7); ALKALINE PHOSPHATASE 45 U/L (46-116); ANION GAP 4 mmol/L (5-15); ASPARTATE AMINO TRANSFERASE 9 U/L (15-37); BILIRUBIN,TOTAL 0.3 MG/DL (0.2-1.0); BLOOD UREA NITROGEN 13 mg/dL (7-18); CALCIUM 8.9 MG/DL (8.5-10.1); CARBON DIOXIDE 36 MMOL/L (21-32); CHLORIDE 105 MMOL/L (98-107); CREATININE 0.9 MG/DL (0.55-1.30); PHOSPHORUS 3.6 MG/DL (2.5-4.9); POTASSIUM 3.4 MMOL/L (3.5-5.1); SODIUM 145 MMOL/L (136-145)
[2017-07-19] MEDS: Albuterol/Ipratropium 3ml neb HHN SCH ×3 (07:39→18:54)
[2017-07-19 08:00] VITALS: BP 132/71
[2017-07-19] MEDS: Heparin 5000 units/ml inj SUBQ SCH ×2 (08:31→21:01)
[2017-07-19] MEDS: Theophylline ER 100mg ORAL SCH ×2 (08:33→20:59)
[2017-07-19] MEDS: Docusate 100mg cap ORAL SCH ×2 (08:36→17:34)
--- NOTE | 2017-07-19 09:43 | Progress Note ---
DATE: 07/18/2017 SUBJECTIVE: The patient continues to be anxious and . Poor insight and judgment discharged and get sick. MENTAL STATUS EXAMINATION: The patient is alert and oriented times self, place, and situation she is in. Mood is anxious. Affect is constricted. Congruent with mood. Thought process is concrete. Thought content, no suicidal or homicidal ideations. ASSESSMENT: Anxiety and depression. PLAN: 1. We will continue the Lexapro 20 mg in the morning. 2. We will continue to provide the patient with supportive therapy. 3. Seroquel 25 mg at bedtime, 1 mg at bedtime. 4. We will continue to follow and readjust the medications. Cory Mcbride M.D. DR: MARYELLEN JOB#: [id number] CC:
--- NOTE | 2017-07-19 11:26 | Infectious Diseases Prog Note ---
Assessment/Plan Assessment/Plan Asthma exacerbation- r/o Influenza, r/o bacterial bronchitis-possible PNA- r/o fungal PNA- possibly ANNETTE, ?obesity hypoventilation syndrome contributing BiPAP on/off , C02 retention -CXR 07/13: Right greater than left patchy and nodular airspace opacities are again demonstrated, unchanged. There is probably a small amount of fluid along the major fissure. -CXR: Bilateral diffuse infiltrates versus edema -sp cx normal tristen -HIV 1/2 ab neg Leukocytosis, (on steroids),-resolved -Cdiff 07/17 neg -Bcx Neg x4 -influenza test ordered, never done- treated empirically Plan: - Continue Levaquin d# / -07/17 SP Zosyn #7 -07/15 SP Tamiflu #5/ -07/11 SP Levaquin #3 -Monitor CBC/BMP, temperatures; trend WBC- if continues to worsen will repeat cultures -aspiration precautions -f/u CrAg, cocci ab Subjective Allergies: Coded Allergies: No Known Allergies (Unverified , 02/19/17) Subjective afebrile on off bipap leukocytosis resolved Objective Vital Signs Last 24 Hour Vital Signs Date Time Temp Pulse Resp B/P (MAP) Pulse Ox O2 Delivery O2 Flow Rate FiO2 07/19/17 10:35 100 24 95 Facial 60 07/19/17 09:06 106 25 97 Facial 60 07/19/17 08:32 104 132/71 07/19/17 08:00 95 07/19/17 08:00 60 07/19/17 08:00 97.0 104 26 132/71 94 Bi-pap 60 07/19/17 07:45 60 07/19/17 07:45 118 30 96 Bi-pap 60 07/19/17 07:39 Bi-pap 60 07/19/17 07:39 94 Bi-pap 60 07/19/17 07:39 116 32 94 Facial 60 07/19/17 07:39 116 30 94 Bi-pap 60 07/19/17 05:00 100 20 97 60 07/19/17 04:00 107 07/19/17 04:00 60 07/19/17 04:00 98.1 100 20 130/75 97 Bi-pap 60 07/19/17 03:20 104 20 95 Facial 60 07/19/17 01:33 106 20 95 Facial 12.0 60 07/19/17 00:00 109 07/19/17 00:00 97.9 106 20 143/78 96 Bi-pap 60 07/18/17 22:58 84 28 98 Facial 60 07/18/17 21:09 104 32 97 Facial 60 07/18/17 20:00 112 07/18/17 20:00 97.2 117 20 135/70 97 Bi-pap 60 07/18/17 20:00 60 07/18/17 19:26 101 28 99 Bi-pap 60 07/18/17 19:08 109 32 96 Bi-pap 60 07/18/17 19:08 110 31 96 Facial 60 07/18/17 19:06 Bi-pap 60 07/18/17 19:06 96 Bi-pap 60 07/18/17 16:30 115 32 97 Facial 60 07/18/17 16:00 111 07/18/17 16:00 97.9 111 20 134/69 96 Bi-pap 60 07/18/17 16:00 60 07/18/17 14:50 100 31 95 Facial 60 07/18/17 13:24 102 30 98 Bi-pap 60 07/18/17 13:15 106 30 97 Bi-pap 60 07/18/17 13:14 103 30 96 Facial 60 07/18/17 12:00 60 07/18/17 12:00 98.2 113 21 130/72 99 Bi-pap 60 07/18/17 11:42 105 Height (Feet): 5 Height (Inches): 5.00 Weight (Pounds): 250 Objective General Appearance: normal inspection, alert, non-toxic, bipap mask on placed HEENT: normocephalic, atraumatic bilateral eye PERRL, bilateral eye EOMI Neck: supple Respiratory: wheezing Cardiovascular regular rate, rhythm, no edema Gastrointestinal: normal inspection, normal bowel sounds, non tender, soft, no mass, no peritonitis, non-distended, no guarding, no hernia, no pulsatile mass Genitourinary: no CVA tenderness Musculoskeletal: normal inspection, back normal, normal range of motion, no calf tenderness Neurologic: normal inspection, alert, oriented x3, responsive, psychological operations III-XII nml as tested, motor strength/tone normal, cerebellar normal, normal gait, speech normal Skin: normal inspection, normal color, no rash Lymphatic: normal inspection, no adenopathy. Microbiology Date/Time Source Procedure Growth Status 07/17/17 09:40 Stool Clostridium difficile Toxin Assay - Final Complete Laboratory Tests Test 07/19/17 04:15 White Blood Count 10.6 K/UL (4.8-10.8) Red Blood Count 3.29 M/UL (4.20-5.40) L Hemoglobin 10.1 G/DL (12.0-16.0) L Hematocrit 33.9 % (37.0-47.0) L Mean Corpuscular Volume 103 FL (80-99) H Mean Corpuscular Hemoglobin 30.8 PG (27.0-31.0) Mean Corpuscular Hemoglobin Concent 29.9 G/DL (32.0-36.0) L Red Cell Distribution Width 16.2 % (11.6-14.8) H Platelet Count 239 K/UL (150-450) Mean Platelet Volume 6.9 FL (6.5-10.1) Neutrophils (%) (Auto) 77.2 % (45.0-75.0) H Lymphocytes (%) (Auto) 16.5 % (20.0-45.0) L Monocytes (%) (Auto) 5.7 % (1.0-10.0) Eosinophils (%) (Auto) 0.2 % (0.0-3.0) Basophils (%) (Auto) 0.3 % (0.0-2.0) Sodium Level 145 MMOL/L (136-145) Potassium Level 3.4 MMOL/L (3.5-5.1) L Chloride Level 105 MMOL/L (98-107) Carbon Dioxide Level 36 MMOL/L (21-32) H Anion Gap 4 mmol/L (5-15) L Blood Urea Nitrogen 13 mg/dL (7-18) Creatinine 0.9 MG/DL (0.55-1.30) Estimat Glomerular Filtration Rate > 60 mL/min (>60) Glucose Level 101 MG/DL (74-106) Calcium Level 8.9 MG/DL (8.5-10.1) Phosphorus Level 3.6 MG/DL (2.5-4.9) Magnesium Level 1.8 MG/DL (1.8-2.4) Total Bilirubin 0.3 MG/DL (0.2-1.0) Aspartate Amino Transf (AST/SGOT) 9 U/L (15-37) L Alanine Aminotransferase (ALT/SGPT) 14 U/L (12-78) Alkaline Phosphatase 45 U/L (46-116) L Total Protein 6.8 G/DL (6.4-8.2) Albumin 2.8 G/DL (3.4-5.0) L Globulin 4.0 g/dL Albumin/Globulin Ratio 0.7 (1.0-2.7) L HIV (1&2) Antibody Rapid Negative (NEGATIVE) Current Medications Medications (Trade) Dose Ordered Sig/Selvin Route PRN Reason Start Time Stop Time Status Last Admin Dose Admin Acetazolamide (Diamox) 250 mg TWICE A DAY ORAL 07/16/17 18:00 08/15/17 17:59 07/19/17 08:31 Albuterol/ Ipratropium (Albuterol/ Ipratropium) 3 ml Q4H PRN HHN sob 07/16/17 13:00 07/21/17 12:59 Albuterol/ Ipratropium (Albuterol/ Ipratropium) 3 ml TIDRT HHN 07/15/17 19:00 07/20/17 18:59 07/19/17 07:39 Amlodipine Besylate (Norvasc) 5 mg DAILY ORAL 07/16/17 09:00 08/09/17 09:44 07/19/17 08:32 Clonazepam (KlonoPIN) 1 mg BEDTIME ORAL 07/15/17 21:00 07/21/17 20:59 07/18/17 20:22 Clonidine HCl (Catapres) 0.1 mg EVERY 6 HOURS PRN ORAL For High Blood Pressure>160 07/15/17 12:00 08/14/17 07:44 Docusate Sodium (Colace) 100 mg TWICE A DAY ORAL 07/15/17 18:00 08/09/17 09:44 07/15/17 17:21 Escitalopram Oxalate (Lexapro) 20 mg DAILY ORAL 07/16/17 09:00 08/14/17 08:59 07/19/17 08:31 Gabapentin (Neurontin) 100 mg THREE TIMES A DAY ORAL 07/15/17 13:00 08/09/17 09:44 07/19/17 08:32 Heparin Sodium (Porcine) (Heparin 5000 units/ml) 5,000 units EVERY 12 HOURS SUBQ 07/15/17 21:00 08/09/17 09:44 07/19/17 08:31 Levetiracetam (Keppra) 500 mg Q12HR ORAL 07/15/17 21:00 08/09/17 09:44 07/19/17 08:32 Levofloxacin 150 ml @ 100 mls/hr Q24H IVPB 07/15/17 17:00 07/22/17 16:59 07/18/17 17:58 Morphine Sulfate (Morphine Sulfate) 1 mg Q6H PRN IVP Severe Breakthru Pain (>7) 07/18/17 03:30 07/25/17 03:29 07/19/17 02:37 Prednisone (predniSONE) 40 mg DAILY ORAL 07/19/17 09:00 08/18/17 08:59 07/19/17 08:33 Quetiapine Fumarate (SEROquel) 25 mg BEDTIME ORAL 07/18/17 21:00 08/17/17 20:59 07/18/17 20:22 Theophylline (Paresh-Dur) 100 mg EVERY 12 HOURS ORAL 07/15/17 21:00 08/09/17 09:44 07/19/17 08:33 Magdalena Jones M.D. Jul 19, 2017 11:26
--- NOTE | 2017-07-19 11:28 | Pulmonology Progress Note ---
Assessment/Plan Problems: (1) Acute hypercapnic respiratory failure (2) Asthma exacerbation (3) Aspiration pneumonia (4) Ventriculo-peritoneal shunt status Assessment/Plan on and off bipap wbc decreasing dc IV solumedrol, start on prednisone continue abx, on Tamiflu now, check cultures check electrolytes. cxr reviewed, not much changed in the last few days, RML still present. Psych evaluation. CT chest to rule out PE and looks at the infiltrate. Subjective ROS Limited/Unobtainable: No Constitutional: Reports: no symptoms HEENT: Repors: no symptoms Respiratory: Reports: no symptoms Allergies: Coded Allergies: No Known Allergies (Unverified , 02/19/17) Objective Last 24 Hour Vital Signs Date Time Temp Pulse Resp B/P (MAP) Pulse Ox O2 Delivery O2 Flow Rate FiO2 07/19/17 10:35 100 24 95 Facial 60 07/19/17 09:06 106 25 97 Facial 60 07/19/17 08:32 104 132/71 07/19/17 08:00 95 07/19/17 08:00 60 07/19/17 08:00 97.0 104 26 132/71 94 Bi-pap 60 07/19/17 07:45 60 07/19/17 07:45 118 30 96 Bi-pap 60 07/19/17 07:39 Bi-pap 60 07/19/17 07:39 94 Bi-pap 60 07/19/17 07:39 116 32 94 Facial 60 07/19/17 07:39 116 30 94 Bi-pap 60 07/19/17 05:00 100 20 97 60 07/19/17 04:00 107 07/19/17 04:00 60 07/19/17 04:00 98.1 100 20 130/75 97 Bi-pap 60 07/19/17 03:20 104 20 95 Facial 60 07/19/17 01:33 106 20 95 Facial 12.0 60 07/19/17 00:00 109 07/19/17 00:00 97.9 106 20 143/78 96 Bi-pap 60 07/18/17 22:58 84 28 98 Facial 60 07/18/17 21:09 104 32 97 Facial 60 07/18/17 20:00 112 07/18/17 20:00 97.2 117 20 135/70 97 Bi-pap 60 1/9/18 20:00 60 07/18/17 19:26 101 28 99 Bi-pap 60 07/18/17 19:08 109 32 96 Bi-pap 60 07/18/17 19:08 110 31 96 Facial 60 07/18/17 19:06 Bi-pap 60 07/18/17 19:06 96 Bi-pap 60 07/18/17 16:30 115 32 97 Facial 60 07/18/17 16:00 111 07/18/17 16:00 97.9 111 20 134/69 96 Bi-pap 60 07/18/17 16:00 60 07/18/17 14:50 100 31 95 Facial 60 07/18/17 13:24 102 30 98 Bi-pap 60 07/18/17 13:15 106 30 97 Bi-pap 60 07/18/17 13:14 103 30 96 Facial 60 07/18/17 12:00 60 07/18/17 12:00 98.2 113 21 130/72 99 Bi-pap 60 07/18/17 11:42 105 Intake and Output 07/18/17 07/19/17 19:00 07:00 Intake Total 1250 ml Balance 1250 ml Intake Oral 1250 ml # Voids 8 # Bowel Movements 4 General Appearance: WD/WN, no acute distress HEENT: normocephalic, atraumatic Respiratory/Chest: chest wall non-tender, lungs clear Cardiovascular: normal peripheral pulses, normal rate Abdomen: normal bowel sounds, soft, non tender Genitourinary: normal external genitalia Extremities: no clubbing Neurologic/Psychiatric: applications architect II-XII grossly normal Lymphatic: no neck adenopathy Microbiology Date/Time Source Procedure Growth Status 07/17/17 09:40 Stool Clostridium difficile Toxin Assay - Final Complete Laboratory Tests 07/19/17 04:15: White Blood Count 10.6, Red Blood Count 3.29L, Hemoglobin 10.1L, Hematocrit 33.9L, Mean Corpuscular Volume 103H, Mean Corpuscular Hemoglobin 30.8, Mean Corpuscular Hemoglobin Concent 29.9L, Red Cell Distribution Width 16.2H, Platelet Count 239, Mean Platelet Volume 6.9, Neutrophils (%) (Auto) 77.2H, Lymphocytes (%) (Auto) 16.5L, Monocytes (%) (Auto) 5.7, Eosinophils (%) (Auto) 0.2, Basophils (%) (Auto) 0.3, Sodium Level 145, Potassium Level 3.4L, Chloride Level 105, Carbon Dioxide Level 36H, Anion Gap 4L, Blood Urea Nitrogen 13, Creatinine 0.9, Estimat Glomerular Filtration Rate > 60, Glucose Level 101, Calcium Level 8.9, Phosphorus Level 3.6, Magnesium Level 1.8, Total Bilirubin 0.3, Aspartate Amino Transf (AST/SGOT) 9L, Alanine Aminotransferase (ALT/SGPT) 14, Alkaline Phosphatase 45L, Total Protein 6.8, Albumin 2.8L, Globulin 4.0, Albumin/Globulin Ratio 0.7L, HIV (1&2) Antibody Rapid Negative Current Medications Medications (Trade) Dose Ordered Sig/Selvin Route PRN Reason Start Time Stop Time Status Last Admin Dose Admin Acetazolamide (Diamox) 250 mg TWICE A DAY ORAL 07/16/17 18:00 08/15/17 17:59 07/19/17 08:31 Albuterol/ Ipratropium (Albuterol/ Ipratropium) 3 ml Q4H PRN HHN sob 07/16/17 13:00 07/21/17 12:59 Albuterol/ Ipratropium (Albuterol/ Ipratropium) 3 ml TIDRT HHN 07/15/17 19:00 07/20/17 18:59 07/19/17 07:39 Amlodipine Besylate (Norvasc) 5 mg DAILY ORAL 07/16/17 09:00 08/09/17 09:44 07/19/17 08:32 Clonazepam (KlonoPIN) 1 mg BEDTIME ORAL 07/15/17 21:00 07/21/17 20:59 07/18/17 20:22 Clonidine HCl (Catapres) 0.1 mg EVERY 6 HOURS PRN ORAL For High Blood Pressure>160 07/15/17 12:00 08/14/17 07:44 Docusate Sodium (Colace) 100 mg TWICE A DAY ORAL 07/15/17 18:00 08/09/17 09:44 07/15/17 17:21 Escitalopram Oxalate (Lexapro) 20 mg DAILY ORAL 07/16/17 09:00 08/14/17 08:59 07/19/17 08:31 Gabapentin (Neurontin) 100 mg THREE TIMES A DAY ORAL 07/15/17 13:00 08/09/17 09:44 07/19/17 08:32 Heparin Sodium (Porcine) (Heparin 5000 units/ml) 5,000 units EVERY 12 HOURS SUBQ 07/15/17 21:00 08/09/17 09:44 07/19/17 08:31 Levetiracetam (Keppra) 500 mg Q12HR ORAL 07/15/17 21:00 08/09/17 09:44 07/19/17 08:32 Levofloxacin 150 ml @ 100 mls/hr Q24H IVPB 07/15/17 17:00 07/22/17 16:59 07/18/17 17:58 Morphine Sulfate (Morphine Sulfate) 1 mg Q6H PRN IVP Severe Breakthru Pain (>7) 07/18/17 03:30 07/25/17 03:29 07/19/17 02:37 Prednisone (predniSONE) 40 mg DAILY ORAL 07/19/17 09:00 08/18/17 08:59 07/19/17 08:33 Quetiapine Fumarate (SEROquel) 25 mg BEDTIME ORAL 07/18/17 21:00 08/17/17 20:59 07/18/17 20:22 Theophylline (Paresh-Dur) 100 mg EVERY 12 HOURS ORAL 07/15/17 21:00 08/09/17 09:44 07/19/17 08:33 CRISTINA BRAMBILA Jul 19, 2017 11:27
[2017-07-19 12:00] VITALS: BP 144/62
[2017-07-19 16:00] VITALS: BP 126/92
[2017-07-19 20:00] VITALS: BP 124/56
--- NOTE | 2017-07-19 22:43 | General Progress Note ---
Assessment/Plan Status: stable Assessment/Plan ASSESSMENT AND RECS: #. Leukocytosis related to underlying steroids. --> Resolved as of today. #. Anemia secondary to chronic disease. Continue to closely monitor. --> anemia w/u has been ordered and reviewed, no aid noted --> Blood transfusion not required today. #. Shortness of breath, related to underlying asthma exacerbation. On Levaquin for bacterial bronchitis. Continue per ID service. --> on bipap, pulm following #. Asthma exacerbation with infiltrates noted. Continue Tamiflu. #. Elevated bicarb, potentially related to acidosis, retention of CO2. #. Hypoglycemia, potentially related to steroids. #. Seizure disorder, currently stable #. Malnutrition Cdiff negative, bcx neg x4 Subjective Date patient seen: Jul 19, 2017 Constitutional: Denies: no symptoms, chills, diaphoresis, fever, malaise, weakness, other HEENT: Denies: no symptoms, eye pain, blurred vision, tearing, double vision, ear pain, ear discharge, nose pain, nose congestion, throat pain, throat swelling, mouth pain, mouth swelling, other Cardiovascular: Denies: no symptoms, chest pain, edema, irregular heart rate, lightheadedness, palpitations, syncope, other Respiratory: Denies: no symptoms, cough, orthopnea, shortness of breath, SOB with excertion, SOB at rest, sputum, stridor, wheezing, other Gastrointestinal/Abdominal: Denies: no symptoms, abdomen distended, abdominal pain, black stools, tarry stools, blood in stool, constipated, diarrhea, difficulty swallowing, nausea, poor appetite, poor fluid intake, rectal bleeding , vomiting, other Genitourinary: Denies: no symptoms, burning, discharge, frequency, flank pain, hematuria, incontinence, pain, urgency, other Hematologic/Lymphatic: Reports: anemia Allergies: Coded Allergies: No Known Allergies (Unverified , 02/19/17) Subjective On bipap. Leukocytosis resolved. Awaiting placement. Objective Last 24 Hour Vital Signs Date Time Temp Pulse Resp B/P (MAP) Pulse Ox O2 Delivery O2 Flow Rate FiO2 07/19/17 20:48 115 23 96 Facial 60 07/19/17 20:00 109 07/19/17 20:00 60 07/19/17 20:00 98.4 119 32 124/56 94 Bi-pap 60 07/19/17 19:17 97.7 07/19/17 19:01 114 29 97 Bi-pap 60 07/19/17 18:54 111 32 97 Bi-pap 60 07/19/17 18:53 97 Bi-pap 60 07/19/17 18:53 111 32 97 Facial 60 07/19/17 18:53 Bi-pap 60 07/19/17 17:40 103 30 95 Facial 60 07/19/17 16:00 103 07/19/17 16:00 60 07/19/17 16:00 97.7 111 34 126/92 95 Bi-pap 60 07/19/17 16:00 103 07/19/17 14:53 93 31 96 Facial 60 07/19/17 13:09 60 07/19/17 13:09 100 25 96 Bi-pap 60 07/19/17 12:59 98 25 96 Facial 60 07/19/17 12:59 100 25 96 Bi-pap 60 07/19/17 12:00 97.4 108 25 144/62 94 Bi-pap 60 07/19/17 12:00 102 07/19/17 12:00 60 07/19/17 10:35 100 24 95 Facial 60 07/19/17 09:06 106 25 97 Facial 60 07/19/17 08:32 104 132/71 07/19/17 08:00 95 07/19/17 08:00 60 07/19/17 08:00 97.0 104 26 132/71 94 Bi-pap 60 07/19/17 07:45 60 07/19/17 07:45 118 30 96 Bi-pap 60 07/19/17 07:39 Bi-pap 60 07/19/17 07:39 94 Bi-pap 60 07/19/17 07:39 116 32 94 Facial 60 07/19/17 07:39 116 30 94 Bi-pap 60 07/19/17 05:00 100 20 97 60 07/19/17 04:00 107 07/19/17 04:00 60 07/19/17 04:00 98.1 100 20 130/75 97 Bi-pap 60 07/19/17 03:20 104 20 95 Facial 60 07/19/17 01:33 106 20 95 Facial 12.0 60 07/19/17 00:00 109 07/19/17 00:00 97.9 106 20 143/78 96 Bi-pap 60 07/18/17 22:58 84 28 98 Facial 60 Intake and Output 07/18/17 07/19/17 19:00 07:00 Intake Total 1250 ml Balance 1250 ml Intake Oral 1250 ml # Voids 8 # Bowel Movements 4 Laboratory Tests 07/19/17 04:15: White Blood Count 10.6, Red Blood Count 3.29L, Hemoglobin 10.1L, Hematocrit 33.9L, Mean Corpuscular Volume 103H, Mean Corpuscular Hemoglobin 30.8, Mean Corpuscular Hemoglobin Concent 29.9L, Red Cell Distribution Width 16.2H, Platelet Count 239, Mean Platelet Volume 6.9, Neutrophils (%) (Auto) 77.2H, Lymphocytes (%) (Auto) 16.5L, Monocytes (%) (Auto) 5.7, Eosinophils (%) (Auto) 0.2, Basophils (%) (Auto) 0.3, Sodium Level 145, Potassium Level 3.4L, Chloride Level 105, Carbon Dioxide Level 36H, Anion Gap 4L, Blood Urea Nitrogen 13, Creatinine 0.9, Estimat Glomerular Filtration Rate > 60, Glucose Level 101, Calcium Level 8.9, Phosphorus Level 3.6, Magnesium Level 1.8, Total Bilirubin 0.3, Aspartate Amino Transf (AST/SGOT) 9L, Alanine Aminotransferase (ALT/SGPT) 14, Alkaline Phosphatase 45L, Total Protein 6.8, Albumin 2.8L, Globulin 4.0, Albumin/Globulin Ratio 0.7L, HIV (1&2) Antibody Rapid Negative Height (Feet): 5 Height (Inches): 5.00 Weight (Pounds): 250 General Appearance: no apparent distress Abdomen: non tender, soft Uche Leon Jul 19, 2017 22:43
[2017-07-20] VITALS (7 sets, daily range): BP systolic 122–148; BP diastolic 61–79
[2017-07-20] MEDS: Morphine Sulfate 2mg/ml Inj IVP PRN ×3 (05:28→21:01)
[2017-07-20 05:37] LABS: BASOPHILS % (AUTO) 0.3 % (0.0-2.0); EOSINOPHILS % (AUTO) 0.1 % (0.0-3.0); HEMATOCRIT 34.5 % (37.0-47.0); HEMOGLOBIN 10.5 G/DL (12.0-16.0); LYMPHOCYTES % (AUTO) 19.5 % (20.0-45.0); MEAN CORPUSCULAR VOLUME 103 FL (80-99); MONOCYTES % (AUTO) 5.7 % (1.0-10.0); NEUTROPHILS % (AUTO) 74.4 % (45.0-75.0); PLATELET COUNT 227 K/UL (150-450); RED BLOOD COUNT 3.37 M/UL (4.20-5.40); WHITE BLOOD COUNT 11.9 K/UL (4.8-10.8)
[2017-07-20 06:11] LABS: ALANINE AMINOTRANSFERASE 10 U/L (12-78); ALBUMIN 2.8 G/DL (3.4-5.0); ALBUMIN/GLOBULIN RATIO 0.7 (1.0-2.7); ALKALINE PHOSPHATASE 43 U/L (46-116); ANION GAP 3 mmol/L (5-15); ASPARTATE AMINO TRANSFERASE 10 U/L (15-37); BILIRUBIN,TOTAL 0.2 MG/DL (0.2-1.0); BLOOD UREA NITROGEN 16 mg/dL (7-18); CALCIUM 8.8 MG/DL (8.5-10.1); CARBON DIOXIDE 36 MMOL/L (21-32); CHLORIDE 105 MMOL/L (98-107); POTASSIUM 3.5 MMOL/L (3.5-5.1); SODIUM 144 MMOL/L (136-145)
[2017-07-20] MEDS: Albuterol/Ipratropium 3ml neb HHN SCH ×2 (07:22→12:35)
[2017-07-20] MEDS: Docusate 100mg cap ORAL SCH ×2 (08:43→17:51)
[2017-07-20] MEDS: Theophylline ER 100mg ORAL SCH ×2 (08:44→21:00)
[2017-07-20] MEDS: Heparin 5000 units/ml inj SUBQ SCH ×2 (08:45→21:05)
--- NOTE | 2017-07-20 12:19 | Diagnostic Imaging Report ---
Indication: Dyspnea Comparison: 07/17/2017 A single view chest radiograph was obtained. Findings: Bilateral infiltrates again demonstrated. Heart size is stable. HAND STRIPER shunt again noted on the right. IMPRESSION: No change from the prior exam
--- NOTE | 2017-07-20 13:00 | Pulmonology Progress Note ---
Assessment/Plan Problems: (1) Acute hypercapnic respiratory failure (2) Asthma exacerbation (3) Aspiration pneumonia (4) Ventriculo-peritoneal shunt status Assessment/Plan on abipap wbc decreasing dc IV solumedrol, start on prednisone continue abx, on Tamiflu now, check cultures check electrolytes. cxr reviewed, not much changed in the last few days, RML still present. Psych evaluation appreciated, CT chest to rule out PE and looks at the infiltrate. Subjective ROS Limited/Unobtainable: No Constitutional: Reports: no symptoms HEENT: Repors: no symptoms Respiratory: Reports: no symptoms Allergies: Coded Allergies: No Known Allergies (Unverified , 02/19/17) Objective Last 24 Hour Vital Signs Date Time Temp Pulse Resp B/P (MAP) Pulse Ox O2 Delivery O2 Flow Rate FiO2 07/20/17 12:37 109 32 97 Facial 60 07/20/17 12:35 109 32 97 Bi-pap 60 07/20/17 12:00 60 07/20/17 12:00 97.9 97 20 148/71 98 Bi-pap 60 07/20/17 11:17 104 25 96 Facial 60 07/20/17 10:14 104 30 96 Facial 60 07/20/17 10:00 102 26 92 07/20/17 09:15 106 24 96 Facial 60 07/20/17 08:44 99 125/77 07/20/17 08:00 101 07/20/17 08:00 60 07/20/17 08:00 98.0 99 20 125/77 98 Bi-pap 60 07/20/17 07:32 104 28 98 Bi-pap 60 07/20/17 07:25 Bi-pap 60 07/20/17 07:25 95 Bi-pap 60 07/20/17 07:24 102 28 95 Facial 60 07/20/17 07:22 102 28 95 Bi-pap 60 07/20/17 05:06 110 28 96 Facial 60 07/20/17 04:00 98.0 94 20 138/79 98 Bi-pap 60 07/20/17 04:00 60 07/20/17 04:00 96 07/20/17 03:39 104 24 96 Facial 60 07/20/17 00:58 98 23 95 Facial 60 07/20/17 00:47 97.9 118 24 137/76 97 Bi-pap 60 07/20/17 00:00 106 07/20/17 00:00 60 07/19/17 22:46 108 28 96 Facial 60 07/19/17 20:48 115 23 96 Facial 60 07/19/17 20:00 109 07/19/17 20:00 60 07/19/17 20:00 98.4 119 32 124/56 94 Bi-pap 60 07/19/17 19:17 97.7 07/19/17 19:01 114 29 97 Bi-pap 60 07/19/17 18:54 111 32 97 Bi-pap 60 07/19/17 18:53 97 Bi-pap 60 07/19/17 18:53 111 32 97 Facial 60 07/19/17 18:53 Bi-pap 60 07/19/17 17:40 103 30 95 Facial 60 07/19/17 16:00 103 07/19/17 16:00 60 07/19/17 16:00 97.7 111 34 126/92 95 Bi-pap 60 07/19/17 16:00 103 07/19/17 14:53 93 31 96 Facial 60 07/19/17 13:09 60 07/19/17 13:09 100 25 96 Bi-pap 60 Intake and Output 07/19/17 07/20/17 19:00 07:00 Intake Total 620 ml 450 ml Balance 620 ml 450 ml Intake Oral 470 ml 450 ml IV Total 150 ml # Voids 5 3 # Bowel Movements 2 4 General Appearance: WD/WN HEENT: normocephalic, atraumatic Respiratory/Chest: chest wall non-tender, lungs clear, normal breath sounds Breasts: no masses Cardiovascular: normal peripheral pulses, normal rate, regular rhythm, regularly irregular Abdomen: normal bowel sounds, no organomegaly, no scars Extremities: no cyanosis, no clubbing Skin: no lesions Laboratory Tests 07/20/17 04:50: White Blood Count 11.9H, Red Blood Count 3.37L, Hemoglobin 10.5L, Hematocrit 34.5L, Mean Corpuscular Volume 103H, Mean Corpuscular Hemoglobin 31.3H, Mean Corpuscular Hemoglobin Concent 30.5L, Red Cell Distribution Width 16.0H, Platelet Count 227, Mean Platelet Volume 6.5, Neutrophils (%) (Auto) 74.4, Lymphocytes (%) (Auto) 19.5L, Monocytes (%) (Auto) 5.7, Eosinophils (%) (Auto) 0.1, Basophils (%) (Auto) 0.3, Sodium Level 144, Potassium Level 3.5, Chloride Level 105, Carbon Dioxide Level 36H, Anion Gap 3L, Blood Urea Nitrogen 16, Creatinine 1.0, Estimat Glomerular Filtration Rate > 60, Glucose Level 111H, Calcium Level 8.8, Total Bilirubin 0.2, Aspartate Amino Transf (AST/SGOT) 10L, Alanine Aminotransferase (ALT/SGPT) 10L, Alkaline Phosphatase 43L, Pro-B-Type Natriuretic Peptide 81, Total Protein 6.8, Albumin 2.8L, Globulin 4.0, Albumin/ Globulin Ratio 0.7L Current Medications Medications (Trade) Dose Ordered Sig/Selvin Route PRN Reason Start Time Stop Time Status Last Admin Dose Admin Acetazolamide (Diamox) 250 mg TWICE A DAY ORAL 07/16/17 18:00 08/15/17 17:59 07/20/17 08:44 Albuterol/ Ipratropium (Albuterol/ Ipratropium) 3 ml Q4H PRN HHN sob 07/16/17 13:00 07/21/17 12:59 Albuterol/ Ipratropium (Albuterol/ Ipratropium) 3 ml TIDRT HHN 07/15/17 19:00 07/20/17 18:59 07/20/17 12:35 Amlodipine Besylate (Norvasc) 5 mg DAILY ORAL 07/16/17 09:00 08/09/17 09:44 07/20/17 08:44 Clonazepam (KlonoPIN) 1 mg BEDTIME ORAL 07/15/17 21:00 07/21/17 20:59 07/19/17 20:59 Clonidine HCl (Catapres) 0.1 mg EVERY 6 HOURS PRN ORAL For High Blood Pressure>160 07/15/17 12:00 08/14/17 07:44 Docusate Sodium (Colace) 100 mg TWICE A DAY ORAL 07/15/17 18:00 08/09/17 09:44 07/15/17 17:21 Escitalopram Oxalate (Lexapro) 20 mg DAILY ORAL 07/16/17 09:00 08/14/17 08:59 07/20/17 08:44 Gabapentin (Neurontin) 100 mg THREE TIMES A DAY ORAL 07/15/17 13:00 08/09/17 09:44 07/20/17 08:44 Heparin Sodium (Porcine) (Heparin 5000 units/ml) 5,000 units EVERY 12 HOURS SUBQ 07/15/17 21:00 08/09/17 09:44 07/20/17 08:45 Levetiracetam (Keppra) 500 mg Q12HR ORAL 07/15/17 21:00 08/09/17 09:44 07/20/17 08:44 Morphine Sulfate (Morphine Sulfate) 1 mg Q6H PRN IVP Severe Breakthru Pain (>7) 07/18/17 03:30 07/25/17 03:29 07/20/17 05:28 Prednisone (predniSONE) 40 mg DAILY ORAL 07/19/17 09:00 08/18/17 08:59 07/20/17 08:44 Quetiapine Fumarate (SEROquel) 25 mg BEDTIME ORAL 07/18/17 21:00 08/17/17 20:59 07/19/17 20:59 Theophylline (Paresh-Dur) 100 mg EVERY 12 HOURS ORAL 07/15/17 21:00 08/09/17 09:44 07/20/17 08:44 CRISTINA BRAMBILA Jul 20, 2017 13:00
--- NOTE | 2017-07-20 13:57 | Diagnostic Imaging Report ---
Indication: Chest pain Technique: Continuous helical transaxial imaging of the chest was obtained from the thoracic inlet to the upper abdomen during rapid intravenous contrast administration. Arterial phase of enhancement obtained. Coronal 2-D reformats were also obtained and maximum intensity projection images in multiple planes. Study obtained in a Siemens sensation [address] Automatic Exposure Control was utilized. Total Dose length Product (DLP): 1154.[address] Dose Index Volume (CTDIvol): 32.86 mGy Comparison: None Findings: Pulmonary artery is not well opacified. The main pulmonary artery and right and left pulmonary artery trunks appear clear. However beyond this evaluation is quite limited. The aorta is unremarkable. There is also breathing motion which limits evaluation. Extensive chest wall collaterals present on the right. Injection was from the right arm. Presence of the collateral suggests some impediment to inflow from the right side. The heart is unremarkable. There is perihilar atelectasis on the right and posterior medial atelectasis at the left lung base. No pleural effusion seen. Patchy groundglass lung opacities also noted in the upper lobes. This is nonspecific. Visualized part of the upper abdomen is unremarkable. IMPRESSION: No evidence of central pulmonary embolus. Evaluation is significantly limited by poor bolus injection. Extensive right-sided chest wall collaterals, indirect evidence for impediment to venous inflow from the right arm. Patchy nonspecific groundglass opacities in the upper lobes. Mild perihilar and basilar atelectasis The CT scanner at [facility] is accredited by the [employer] and the scans are performed using dose optimization techniques as appropriate to a performed exam including Automatic Exposure control.
--- NOTE | 2017-07-20 16:05 | Infectious Diseases Prog Note ---
Assessment/Plan Assessment/Plan Asthma exacerbation- r/o Influenza, r/o bacterial bronchitis-possible PNA- r/o fungal PNA- possibly ANNETTE, ?obesity hypoventilation syndrome contributing BiPAP on/off , C02 retention -CXR 07/13: Right greater than left patchy and nodular airspace opacities are again demonstrated, unchanged. There is probably a small amount of fluid along the major fissure. -CXR: Bilateral diffuse infiltrates versus edema -sp cx normal tristen -HIV 07/11 ab neg, CrAg neg Leukocytosis, (on steroids),-mild, recurrent -Cdiff 07/17 neg -Bcx Neg x4 -influenza test ordered, never done- treated empirically Plan: - Continue to monitor off abx -07/19 SP Levaquin #5 -07/17 SP Zosyn #7 -07/15 SP Tamiflu #5/5 -2 SP Levaquin #3 -Monitor CBC/BMP, temperatures; trend WBC- if continues to worsen will repeat cultures -aspiration precautions -f/u cocci ab Subjective Allergies: Coded Allergies: No Known Allergies (Unverified , 02/19/17) Subjective afebrile reamins hypercapneic and on bipap mild leukocytosis Objective Vital Signs Last 24 Hour Vital Signs Date Time Temp Pulse Resp B/P (MAP) Pulse Ox O2 Delivery O2 Flow Rate FiO2 07/20/17 15:24 103 27 96 Facial 60 07/20/17 14:05 97.9 07/20/17 12:45 106 32 95 Bi-pap 60 07/20/17 12:37 109 32 97 Facial 60 07/20/17 12:35 109 32 97 Bi-pap 60 07/20/17 12:00 60 07/20/17 12:00 97.9 97 20 148/71 98 Bi-pap 60 07/20/17 12:00 109 07/20/17 11:17 104 25 96 Facial 60 07/20/17 10:14 104 30 96 Facial 60 07/20/17 10:00 102 26 92 07/20/17 09:15 106 24 96 Facial 60 07/20/17 08:44 99 125/77 07/20/17 08:00 101 07/20/17 08:00 60 07/20/17 08:00 98.0 99 20 125/77 98 Bi-pap 60 07/20/17 07:32 104 28 98 Bi-pap 60 07/20/17 07:25 Bi-pap 60 07/20/17 07:25 95 Bi-pap 60 07/20/17 07:24 102 28 95 Facial 60 07/20/17 07:22 102 28 95 Bi-pap 60 07/20/17 05:06 110 28 96 Facial 60 07/20/17 04:00 98.0 94 20 138/79 98 Bi-pap 60 07/20/17 04:00 60 07/20/17 04:00 96 07/20/17 03:39 104 24 96 Facial 60 07/20/17 00:58 98 23 95 Facial 60 07/20/17 00:47 97.9 118 24 137/76 97 Bi-pap 60 07/20/17 00:00 106 07/20/17 00:00 60 07/19/17 22:46 108 28 96 Facial 60 07/19/17 20:48 115 23 96 Facial 60 07/19/17 20:00 109 07/19/17 20:00 60 07/19/17 20:00 98.4 119 32 124/56 94 Bi-pap 60 07/19/17 19:01 114 29 97 Bi-pap 60 07/19/17 18:54 111 32 97 Bi-pap 60 07/19/17 18:53 97 Bi-pap 60 07/19/17 18:53 111 32 97 Facial 60 07/19/17 18:53 Bi-pap 60 07/19/17 17:40 103 30 95 Facial 60 Height (Feet): 5 Height (Inches): 5.00 Weight (Pounds): 250 Objective General Appearance: normal inspection, alert, non-toxic, bipap mask on placed HEENT: normocephalic, atraumatic bilateral eye PERRL, bilateral eye EOMI Neck: supple Respiratory: wheezing Cardiovascular regular rate, rhythm, no edema Gastrointestinal: normal inspection, normal bowel sounds, non tender, soft, no mass, no peritonitis, non-distended, no guarding, no hernia, no pulsatile mass Genitourinary: no CVA tenderness Musculoskeletal: normal inspection, back normal, normal range of motion, no calf tenderness Neurologic: normal inspection, alert, oriented x3, responsive, 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 Laboratory Tests Test 07/20/17 04:50 07/20/17 15:45 White Blood Count 11.9 K/UL (4.8-10.8) H Red Blood Count 3.37 M/UL (4.20-5.40) L Hemoglobin 10.5 G/DL (12.0-16.0) L Hematocrit 34.5 % (37.0-47.0) L Mean Corpuscular Volume 103 FL (80-99) H Mean Corpuscular Hemoglobin 31.3 PG (27.0-31.0) H Mean Corpuscular Hemoglobin Concent 30.5 G/DL (32.0-36.0) L Red Cell Distribution Width 16.0 % (11.6-14.8) H Platelet Count 227 K/UL (150-450) Mean Platelet Volume 6.5 FL (6.5-10.1) Neutrophils (%) (Auto) 74.4 % (45.0-75.0) Lymphocytes (%) (Auto) 19.5 % (20.0-45.0) L Monocytes (%) (Auto) 5.7 % (1.0-10.0) Eosinophils (%) (Auto) 0.1 % (0.0-3.0) Basophils (%) (Auto) 0.3 % (0.0-2.0) Sodium Level 144 MMOL/L (136-145) Potassium Level 3.5 MMOL/L (3.5-5.1) Chloride Level 105 MMOL/L (98-107) Carbon Dioxide Level 36 MMOL/L (21-32) H Anion Gap 3 mmol/L (5-15) L Blood Urea Nitrogen 16 mg/dL (7-18) Creatinine 1.0 MG/DL (0.55-1.30) Estimat Glomerular Filtration Rate > 60 mL/min (>60) Glucose Level 111 MG/DL (74-106) H Calcium Level 8.8 MG/DL (8.5-10.1) Total Bilirubin 0.2 MG/DL (0.2-1.0) Aspartate Amino Transf (AST/SGOT) 10 U/L (15-37) L Alanine Aminotransferase (ALT/SGPT) 10 U/L (12-78) L Alkaline Phosphatase 43 U/L (46-116) L Pro-B-Type Natriuretic Peptide 81 pg/mL (0-125) Total Protein 6.8 G/DL (6.4-8.2) Albumin 2.8 G/DL (3.4-5.0) L Globulin 4.0 g/dL Albumin/Globulin Ratio 0.7 (1.0-2.7) L Arterial Blood pH 7.236 (7.350-7.450) Arterial Blood Partial Pressure CO2 87.4 mmHg (35.0-45.0) *H Arterial Blood Partial Pressure O2 103.4 mmHg (75.0-100.0) H Arterial Blood HCO3 36.3 mmol/L (22.0-26.0) H Arterial Blood Oxygen Saturation 97.4 % (92.0-98.0) Arterial Blood Base Excess 6.2 Lalito Test Positive Current Medications Medications (Trade) Dose Ordered Sig/Selvin Route PRN Reason Start Time Stop Time Status Last Admin Dose Admin Acetazolamide (Diamox) 250 mg TWICE A DAY ORAL 07/16/17 18:00 08/15/17 17:59 07/20/17 08:44 Albuterol/ Ipratropium (Albuterol/ Ipratropium) 3 ml Q4H PRN HHN sob 07/16/17 13:00 07/21/17 12:59 Albuterol/ Ipratropium (Albuterol/ Ipratropium) 3 ml TIDRT HHN 07/15/17 19:00 07/20/17 18:59 07/20/17 12:35 Amlodipine Besylate (Norvasc) 5 mg DAILY ORAL 07/16/17 09:00 08/09/17 09:44 07/20/17 08:44 Clonazepam (KlonoPIN) 1 mg BEDTIME ORAL 07/15/17 21:00 07/21/17 20:59 07/19/17 20:59 Clonidine HCl (Catapres) 0.1 mg EVERY 6 HOURS PRN ORAL For High Blood Pressure>160 07/15/17 12:00 08/14/17 07:44 Docusate Sodium (Colace) 100 mg TWICE A DAY ORAL 07/15/17 18:00 08/09/17 09:44 07/15/17 17:21 Escitalopram Oxalate (Lexapro) 20 mg DAILY ORAL 07/16/17 09:00 08/14/17 08:59 07/20/17 08:44 Gabapentin (Neurontin) 100 mg THREE TIMES A DAY ORAL 07/15/17 13:00 08/09/17 09:44 07/20/17 13:35 Heparin Sodium (Porcine) (Heparin 5000 units/ml) 5,000 units EVERY 12 HOURS SUBQ 07/15/17 21:00 08/09/17 09:44 07/20/17 08:45 Levetiracetam (Keppra) 500 mg Q12HR ORAL 07/15/17 21:00 08/09/17 09:44 07/20/17 08:44 Morphine Sulfate (Morphine Sulfate) 1 mg Q6H PRN IVP Severe Breakthru Pain (>7) 07/18/17 03:30 07/25/17 03:29 07/20/17 13:36 Prednisone (predniSONE) 40 mg DAILY ORAL 07/19/17 09:00 08/18/17 08:59 07/20/17 08:44 Quetiapine Fumarate (SEROquel) 25 mg BEDTIME ORAL 07/18/17 21:00 08/17/17 20:59 07/19/17 20:59 Theophylline (Paresh-Dur) 100 mg EVERY 12 HOURS ORAL 07/15/17 21:00 08/09/17 09:44 07/20/17 08:44 Magdalena Jones M.D. Jul 20, 2017 16:05
[2017-07-21] VITALS: BP 140/68
--- NOTE | 2017-07-21 00:53 | General Progress Note ---
Assessment/Plan Status: unchanged Assessment/Plan ASSESSMENT AND RECS: #. Leukocytosis related to underlying steroids. --> Resolved as of today. #. Anemia secondary to chronic disease. Continue to closely monitor. --> anemia w/u has been ordered and reviewed, no aid noted --> Blood transfusion not required today. #. Shortness of breath, related to underlying asthma exacerbation. On Levaquin for bacterial bronchitis. Continue per ID service. --> on bipap, pulm following #. Asthma exacerbation with infiltrates noted. Continue Tamiflu. #. Elevated bicarb, potentially related to acidosis, retention of CO2. #. Hypoglycemia, potentially related to steroids. #. Seizure disorder, currently stable #. Malnutrition Cdiff negative, bcx neg x4 Subjective Date patient seen: Jul 21, 2017 Constitutional: Denies: no symptoms, chills, diaphoresis, fever, malaise, weakness, other HEENT: Denies: no symptoms, eye pain, blurred vision, tearing, double vision, ear pain, ear discharge, nose pain, nose congestion, throat pain, throat swelling, mouth pain, mouth swelling, other Cardiovascular: Denies: no symptoms, chest pain, edema, irregular heart rate, lightheadedness, palpitations, syncope, other Respiratory: Denies: no symptoms, cough, orthopnea, shortness of breath, SOB with excertion, SOB at rest, sputum, stridor, wheezing, other Gastrointestinal/Abdominal: Denies: no symptoms, abdomen distended, abdominal pain, black stools, tarry stools, blood in stool, constipated, diarrhea, difficulty swallowing, nausea, poor appetite, poor fluid intake, rectal bleeding , vomiting, other Genitourinary: Denies: no symptoms, burning, discharge, frequency, flank pain, hematuria, incontinence, pain, urgency, other Neurologic/Psychiatric: Denies: no symptoms, anxiety, depressed, emotional problems, headache, numbness, paresthesia, pre-existing deficit, seizure, tingling, tremors, weakness, other Hematologic/Lymphatic: Reports: anemia Allergies: Coded Allergies: No Known Allergies (Unverified , 02/19/17) Subjective On bipap. No new events overnight. No fever or chills. Objective Last 24 Hour Vital Signs Date Time Temp Pulse Resp B/P (MAP) Pulse Ox O2 Delivery O2 Flow Rate FiO2 07/20/17 22:31 101 20 95 Facial 50 07/20/17 21:03 108 28 96 Facial 50 07/20/17 20:00 115 07/20/17 20:00 50 07/20/17 20:00 98.7 108 26 122/61 100 Bi-pap 60 07/20/17 19:14 Bi-pap 07/20/17 19:14 110 30 95 Facial 50 07/20/17 19:13 Bi-pap 07/20/17 16:43 102 27 95 Facial 60 07/20/17 16:21 105 30 97 Facial 60 07/20/17 16:00 110 07/20/17 16:00 60 07/20/17 16:00 97.4 112 20 122/61 96 Bi-pap 60 07/20/17 15:24 103 27 96 Facial 60 07/20/17 14:05 97.9 07/20/17 12:45 106 32 95 Bi-pap 60 07/20/17 12:37 109 32 97 Facial 60 07/20/17 12:35 109 32 97 Bi-pap 60 07/20/17 12:00 60 07/20/17 12:00 97.9 97 20 148/71 98 Bi-pap 60 07/20/17 12:00 109 07/20/17 11:17 104 25 96 Facial 60 07/20/17 10:14 104 30 96 Facial 60 07/20/17 10:00 102 26 92 07/20/17 09:15 106 24 96 Facial 60 07/20/17 08:44 99 125/77 07/20/17 08:00 101 07/20/17 08:00 60 07/20/17 08:00 98.0 99 20 125/77 98 Bi-pap 60 07/20/17 07:32 104 28 98 Bi-pap 60 07/20/17 07:25 Bi-pap 60 07/20/17 07:25 95 Bi-pap 60 07/20/17 07:24 102 28 95 Facial 60 07/20/17 07:22 102 28 95 Bi-pap 60 07/20/17 05:06 110 28 96 Facial 60 07/20/17 04:00 98.0 94 20 138/79 98 Bi-pap 60 07/20/17 04:00 60 07/20/17 04:00 96 07/20/17 03:39 104 24 96 Facial 60 07/20/17 00:58 98 23 95 Facial 60 Intake and Output 07/20/17 07/21/17 19:00 07:00 Intake Total 750 ml Balance 750 ml Intake Oral 750 ml # Voids 4 # Bowel Movements 2 1 Laboratory Tests 07/20/17 04:50: White Blood Count 11.9H, Red Blood Count 3.37L, Hemoglobin 10.5L, Hematocrit 34.5L, Mean Corpuscular Volume 103H, Mean Corpuscular Hemoglobin 31.3H, Mean Corpuscular Hemoglobin Concent 30.5L, Red Cell Distribution Width 16.0H, Platelet Count 227, Mean Platelet Volume 6.5, Neutrophils (%) (Auto) 74.4, Lymphocytes (%) (Auto) 19.5L, Monocytes (%) (Auto) 5.7, Eosinophils (%) (Auto) 0.1, Basophils (%) (Auto) 0.3, Sodium Level 144, Potassium Level 3.5, Chloride Level 105, Carbon Dioxide Level 36H, Anion Gap 3L, Blood Urea Nitrogen 16, Creatinine 1.0, Estimat Glomerular Filtration Rate > 60, Glucose Level 111H, Calcium Level 8.8, Total Bilirubin 0.2, Aspartate Amino Transf (AST/SGOT) 10L, Alanine Aminotransferase (ALT/SGPT) 10L, Alkaline Phosphatase 43L, Pro-B-Type Natriuretic Peptide 81, Total Protein 6.8, Albumin 2.8L, Globulin 4.0, Albumin/ Globulin Ratio 0.7L 07/20/17 15:45: Arterial Blood pH 7.236*L, Arterial Blood Partial Pressure CO2 87.4*H, Arterial Blood Partial Pressure O2 103.4H, Arterial Blood HCO3 36.3H, Arterial Blood Oxygen Saturation 97.4, Arterial Blood Base Excess 6.2, Lalito Test Positive Height (Feet): 5 Height (Inches): 5.00 Weight (Pounds): 250 General Appearance: no apparent distress EENT: normal ENT inspection Cardiovascular: normal rate, regular rhythm Respiratory/Chest: lungs clear, normal breath sounds Abdomen: non tender, soft Uche Leon Jul 21, 2017 00:53
[2017-07-21 04:00] VITALS: BP 144/72
[2017-07-21] MEDS: Morphine Sulfate 2mg/ml Inj IVP PRN ×2 (04:04→10:58)
[2017-07-21 05:38] LABS: BASOPHILS % (AUTO) 0.4 % (0.0-2.0); EOSINOPHILS % (AUTO) 0.3 % (0.0-3.0); HEMATOCRIT 33.9 % (37.0-47.0); HEMOGLOBIN 10.4 G/DL (12.0-16.0); LYMPHOCYTES % (AUTO) 17.9 % (20.0-45.0); MEAN CORPUSCULAR VOLUME 103 FL (80-99); MONOCYTES % (AUTO) 5.7 % (1.0-10.0); NEUTROPHILS % (AUTO) 75.7 % (45.0-75.0); PLATELET COUNT 232 K/UL (150-450); RED BLOOD COUNT 3.28 M/UL (4.20-5.40); RED CELL DISTRIBUTION WIDTH 15.8 % (11.6-14.8); WHITE BLOOD COUNT 12.3 K/UL (4.8-10.8)
[2017-07-21 06:03] LABS: ALANINE AMINOTRANSFERASE 9 U/L (12-78); ALBUMIN 2.8 G/DL (3.4-5.0); ALBUMIN/GLOBULIN RATIO 0.7 (1.0-2.7); ALKALINE PHOSPHATASE 56 U/L (46-116); ANION GAP 3 mmol/L (5-15); ASPARTATE AMINO TRANSFERASE 10 U/L (15-37); BILIRUBIN,TOTAL 0.2 MG/DL (0.2-1.0); BLOOD UREA NITROGEN 15 mg/dL (7-18); CALCIUM 8.9 MG/DL (8.5-10.1); CARBON DIOXIDE 37 MMOL/L (21-32); CHLORIDE 106 MMOL/L (98-107); CREATININE 0.9 MG/DL (0.55-1.30); PHOSPHORUS 3.6 MG/DL (2.5-4.9); POTASSIUM 3.6 MMOL/L (3.5-5.1); SODIUM 146 MMOL/L (136-145)
[2017-07-21 08:00] VITALS: BP 148/78
[2017-07-21] MEDS: Docusate 100mg cap ORAL SCH ×2 (09:00→17:49)
[2017-07-21] MEDS: Theophylline ER 100mg ORAL SCH ×2 (09:34→22:11)
[2017-07-21] MEDS: Heparin 5000 units/ml inj SUBQ SCH ×2 (09:38→22:13)
[2017-07-21 12:00] VITALS: BP 111/58
--- NOTE | 2017-07-21 12:29 | Pulmonology Progress Note ---
Assessment/Plan Problems: (1) Acute hypercapnic respiratory failure (2) Asthma exacerbation (3) Aspiration pneumonia (4) Ventriculo-peritoneal shunt status Assessment/Plan on abipap wbc still high dc IV solumedrol, start on prednisone continue abx, check cultures check electrolytes. cxr reviewed, not much changed in the last few days, RML still present. Psych evaluation appreciated, CT chest reviewed, no PE, not much infiltrate. pt's sister, next of kin, declined the transfer to ICU and oral intubation for a few days. She wants to wait and see for now. Subjective ROS Limited/Unobtainable: No Interval Events: pt's sister declined the intubaiton for now, they want to wait and see. Constitutional: Reports: no symptoms HEENT: Repors: no symptoms Allergies: Coded Allergies: No Known Allergies (Unverified , 02/19/17) Objective Last 24 Hour Vital Signs Date Time Temp Pulse Resp B/P (MAP) Pulse Ox O2 Delivery O2 Flow Rate FiO2 07/21/17 10:37 89 31 94 Facial 50 07/21/17 09:34 125 148/78 07/21/17 08:33 88 22 95 Facial 50 07/21/17 08:00 98.2 119 24 148/78 99 Bi-pap 50 07/21/17 07:54 119 07/21/17 06:32 Bi-pap 60 07/21/17 06:32 92 20 94 Facial 50 07/21/17 06:31 94 Bi-pap 60 07/21/17 05:20 98 28 95 Facial 50 07/21/17 04:00 50 07/21/17 04:00 128 07/21/17 04:00 98.0 77 20 144/72 98 Bi-pap 50 07/21/17 03:25 107 26 94 Facial 50 07/21/17 01:02 104 24 96 Facial 50 07/21/17 00:00 50 07/21/17 00:00 112 07/21/17 00:00 98.4 112 25 140/68 95 Bi-pap 07/20/17 22:31 101 20 95 Facial 50 07/20/17 21:03 108 28 96 Facial 50 07/20/17 20:00 115 07/20/17 20:00 50 07/20/17 20:00 98.7 108 26 122/61 100 Bi-pap 60 07/20/17 19:14 Bi-pap 07/20/17 19:14 110 30 95 Facial 50 07/20/17 19:13 Bi-pap 07/20/17 16:43 102 27 95 Facial 60 07/20/17 16:21 105 30 97 Facial 60 07/20/17 16:00 110 07/20/17 16:00 60 07/20/17 16:00 97.4 112 20 122/61 96 Bi-pap 60 07/20/17 15:24 103 27 96 Facial 60 07/20/17 14:05 97.9 07/20/17 12:45 106 32 95 Bi-pap 60 07/20/17 12:37 109 32 97 Facial 60 07/20/17 12:35 109 32 97 Bi-pap 60 Intake and Output 07/20/17 07/21/17 19:00 07:00 Intake Total 750 ml Balance 750 ml Intake Oral 750 ml # Voids 4 # Bowel Movements 2 11 General Appearance: WD/WN HEENT: atraumatic Respiratory/Chest: chest wall non-tender, lungs clear Breasts: no masses Cardiovascular: normal peripheral pulses, regular rhythm Abdomen: normal bowel sounds Genitourinary: normal external genitalia Extremities: no clubbing Skin: no rash 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 Lymphatic: no neck adenopathy Laboratory Tests 07/20/17 15:45: Arterial Blood pH 7.236*L, Arterial Blood Partial Pressure CO2 87.4*H, Arterial Blood Partial Pressure O2 103.4H, Arterial Blood HCO3 36.3H, Arterial Blood Oxygen Saturation 97.4, Arterial Blood Base Excess 6.2, Lalito Test Positive 07/21/17 03:30: White Blood Count 12.3H, Red Blood Count 3.28L, Hemoglobin 10.4L, Hematocrit 33.9L, Mean Corpuscular Volume 103H, Mean Corpuscular Hemoglobin 31.7H, Mean Corpuscular Hemoglobin Concent 30.7L, Red Cell Distribution Width 15.8H, Platelet Count 232, Mean Platelet Volume 7.1, Neutrophils (%) (Auto) 75.7H, Lymphocytes (%) (Auto) 17.9L, Monocytes (%) (Auto) 5.7, Eosinophils (%) (Auto) 0.3, Basophils (%) (Auto) 0.4, Sodium Level 146H, Potassium Level 3.6, Chloride Level 106, Carbon Dioxide Level 37H, Anion Gap 3L, Blood Urea Nitrogen 15, Creatinine 0.9, Estimat Glomerular Filtration Rate > 60, Glucose Level 152H, Calcium Level 8.9, Phosphorus Level 3.6, Magnesium Level 2.0, Total Bilirubin 0.2, Aspartate Amino Transf (AST/SGOT) 10L, Alanine Aminotransferase (ALT/SGPT) 9L, Alkaline Phosphatase 56, Total Protein 6.6, Albumin 2.8L, Globulin 3.8, Albumin/Globulin Ratio 0.7L 07/21/17 04:00: Arterial Blood pH 7.226*L, Arterial Blood Partial Pressure CO2 91.3*H, Arterial Blood Partial Pressure O2 82.2, Arterial Blood HCO3 37.0H, Arterial Blood Oxygen Saturation 94.9, Arterial Blood Base Excess 6.8, Lalito Test Positive Current Medications Medications (Trade) Dose Ordered Sig/Selvin Route PRN Reason Start Time Stop Time Status Last Admin Dose Admin Acetazolamide (Diamox) 250 mg TWICE A DAY ORAL 07/16/17 18:00 08/15/17 17:59 07/21/17 09:34 Albuterol/ Ipratropium (Albuterol/ Ipratropium) 3 ml Q4H PRN HHN sob 07/16/17 13:00 07/21/17 12:59 07/20/17 19:11 Amlodipine Besylate (Norvasc) 5 mg DAILY ORAL 07/16/17 09:00 08/09/17 09:44 07/21/17 09:34 Clonazepam (KlonoPIN) 1 mg BEDTIME ORAL 07/15/17 21:00 07/21/17 20:59 07/20/17 21:00 Clonidine HCl (Catapres) 0.1 mg EVERY 6 HOURS PRN ORAL For High Blood Pressure>160 07/15/17 12:00 08/14/17 07:44 Docusate Sodium (Colace) 100 mg TWICE A DAY ORAL 07/15/17 18:00 08/09/17 09:44 07/15/17 17:21 Escitalopram Oxalate (Lexapro) 20 mg DAILY ORAL 07/16/17 09:00 08/14/17 08:59 07/21/17 09:35 Gabapentin (Neurontin) 100 mg THREE TIMES A DAY ORAL 07/15/17 13:00 08/09/17 09:44 07/21/17 09:34 Heparin Sodium (Porcine) (Heparin 5000 units/ml) 5,000 units EVERY 12 HOURS SUBQ 07/15/17 21:00 08/09/17 09:44 07/21/17 09:38 Levetiracetam (Keppra) 500 mg Q12HR ORAL 07/15/17 21:00 08/09/17 09:44 07/21/17 09:34 Morphine Sulfate (Morphine Sulfate) 1 mg Q6H PRN IVP Severe Breakthru Pain (>7) 07/18/17 03:30 07/25/17 03:29 07/21/17 10:58 Prednisone (predniSONE) 40 mg DAILY ORAL 07/19/17 09:00 08/18/17 08:59 07/21/17 09:34 Quetiapine Fumarate (SEROquel) 25 mg BEDTIME ORAL 07/18/17 21:00 08/17/17 20:59 07/20/17 21:00 Theophylline (Paresh-Dur) 100 mg EVERY 12 HOURS ORAL 07/15/17 21:00 08/09/17 09:44 07/21/17 09:34 CRISTINA BRAMBILA Jul 21, 2017 12:29
[2017-07-21 16:00] VITALS: BP 127/72
--- NOTE | 2017-07-21 16:44 | Infectious Diseases Prog Note ---
Assessment/Plan Assessment/Plan Asthma exacerbation- r/o Influenza, r/o bacterial bronchitis-possible PNA-; s/p Rx r/o fungal PNA- possibly ANNETTE, ?obesity hypoventilation syndrome contributing BiPAP on/off , C02 retention -CXR 07/13: Right greater than left patchy and nodular airspace opacities are again demonstrated, unchanged. There is probably a small amount of fluid along the major fissure. -CXR: Bilateral diffuse infiltrates versus edema -sp cx normal tristen -HIV 2 ab neg, CrAg neg Leukocytosis, (on steroids),-mild, recurrent- -Cdiff 07/17 neg -Bcx Neg x4 -influenza test ordered, never done- treated empirically Plan: - Continue to monitor off abx -07/19 SP Levaquin #5 -07/17 SP Zosyn #7 -07/15 SP Tamiflu #5/5 -2 SP Levaquin #3 -Monitor CBC/BMP, temperatures; trend WBC- if continues to worsen will repeat cultures -aspiration precautions -f/u cocci ab Subjective Allergies: Coded Allergies: No Known Allergies (Unverified , 02/19/17) Subjective afebrile reamins hypercapneic and on bipap mild leukocytosis Objective Vital Signs Last 24 Hour Vital Signs Date Time Temp Pulse Resp B/P (MAP) Pulse Ox O2 Delivery O2 Flow Rate FiO2 07/21/17 16:00 50 07/21/17 16:00 98.1 121 22 127/72 94 Bi-pap 50 07/21/17 14:52 88 26 95 Facial 50 07/21/17 13:18 92 20 95 Facial 50 07/21/17 12:00 50 07/21/17 12:00 118 07/21/17 12:00 98.0 123 24 111/58 95 Bi-pap 50 07/21/17 10:37 89 31 94 Facial 50 07/21/17 09:34 125 148/78 07/21/17 08:33 88 22 95 Facial 50 07/21/17 08:00 50 07/21/17 08:00 98.2 119 24 148/78 99 Bi-pap 50 07/21/17 07:54 119 07/21/17 06:32 Bi-pap 60 07/21/17 06:32 92 20 94 Facial 50 07/21/17 06:31 94 Bi-pap 60 07/21/17 05:20 98 28 95 Facial 50 07/21/17 04:00 50 07/21/17 04:00 128 07/21/17 04:00 98.0 77 20 144/72 98 Bi-pap 50 07/21/17 03:25 107 26 94 Facial 50 07/21/17 01:02 104 24 96 Facial 50 07/21/17 00:00 50 07/21/17 00:00 112 07/21/17 00:00 98.4 112 25 140/68 95 Bi-pap 07/20/17 22:31 101 20 95 Facial 50 07/20/17 21:03 108 28 96 Facial 50 07/20/17 20:00 115 07/20/17 20:00 50 07/20/17 20:00 98.7 108 26 122/61 100 Bi-pap 60 07/20/17 19:14 Bi-pap 07/20/17 19:14 110 30 95 Facial 50 07/20/17 19:13 Bi-pap Height (Feet): 5 Height (Inches): 5.00 Weight (Pounds): 250 Objective General Appearance: normal inspection, alert, non-toxic, bipap mask on placed HEENT: normocephalic, atraumatic bilateral eye PERRL, bilateral eye EOMI Neck: supple Respiratory: wheezing Cardiovascular regular rate, rhythm, no edema Gastrointestinal: normal inspection, normal bowel sounds, non tender, soft, no mass, no peritonitis, non-distended, no guarding, no hernia, no pulsatile mass Genitourinary: no CVA tenderness Musculoskeletal: normal inspection, back normal, normal range of motion, no calf tenderness Neurologic: normal inspection, alert, oriented x3, responsive, firewall engineer III-XII nml as tested, motor strength/tone normal, cerebellar normal, normal gait, speech normal Skin: normal inspection, normal color, no rash Lymphatic: normal inspection, no adenopathy. Laboratory Tests Test 07/21/17 03:30 07/21/17 04:00 White Blood Count 12.3 K/UL (4.8-10.8) H Red Blood Count 3.28 M/UL (4.20-5.40) L Hemoglobin 10.4 G/DL (12.0-16.0) L Hematocrit 33.9 % (37.0-47.0) L Mean Corpuscular Volume 103 FL (80-99) H Mean Corpuscular Hemoglobin 31.7 PG (27.0-31.0) H Mean Corpuscular Hemoglobin Concent 30.7 G/DL (32.0-36.0) L Red Cell Distribution Width 15.8 % (11.6-14.8) H Platelet Count 232 K/UL (150-450) Mean Platelet Volume 7.1 FL (6.5-10.1) Neutrophils (%) (Auto) 75.7 % (45.0-75.0) H Lymphocytes (%) (Auto) 17.9 % (20.0-45.0) L Monocytes (%) (Auto) 5.7 % (1.0-10.0) Eosinophils (%) (Auto) 0.3 % (0.0-3.0) Basophils (%) (Auto) 0.4 % (0.0-2.0) Sodium Level 146 MMOL/L (136-145) H Potassium Level 3.6 MMOL/L (3.5-5.1) Chloride Level 106 MMOL/L (98-107) Carbon Dioxide Level 37 MMOL/L (21-32) H Anion Gap 3 mmol/L (5-15) L Blood Urea Nitrogen 15 mg/dL (7-18) Creatinine 0.9 MG/DL (0.55-1.30) Estimat Glomerular Filtration Rate > 60 mL/min (>60) Glucose Level 152 MG/DL (74-106) H Calcium Level 8.9 MG/DL (8.5-10.1) Phosphorus Level 3.6 MG/DL (2.5-4.9) Magnesium Level 2.0 MG/DL (1.8-2.4) Total Bilirubin 0.2 MG/DL (0.2-1.0) Aspartate Amino Transf (AST/SGOT) 10 U/L (15-37) L Alanine Aminotransferase (ALT/SGPT) 9 U/L (12-78) L Alkaline Phosphatase 56 U/L (46-116) Total Protein 6.6 G/DL (6.4-8.2) Albumin 2.8 G/DL (3.4-5.0) L Globulin 3.8 g/dL Albumin/Globulin Ratio 0.7 (1.0-2.7) L Arterial Blood pH 7.226 (7.350-7.450) Arterial Blood Partial Pressure CO2 91.3 mmHg (35.0-45.0) *H Arterial Blood Partial Pressure O2 82.2 mmHg (75.0-100.0) Arterial Blood HCO3 37.0 mmol/L (22.0-26.0) H Arterial Blood Oxygen Saturation 94.9 % (92.0-98.0) Arterial Blood Base Excess 6.8 Lalito Test Positive Current Medications Medications (Trade) Dose Ordered Sig/Selvin Route PRN Reason Start Time Stop Time Status Last Admin Dose Admin Acetazolamide (Diamox) 250 mg TWICE A DAY ORAL 07/16/17 18:00 08/15/17 17:59 07/21/17 09:34 Amlodipine Besylate (Norvasc) 5 mg DAILY ORAL 07/16/17 09:00 08/09/17 09:44 07/21/17 09:34 Clonazepam (KlonoPIN) 1 mg BEDTIME ORAL 07/15/17 21:00 07/21/17 20:59 07/20/17 21:00 Clonidine HCl (Catapres) 0.1 mg EVERY 6 HOURS PRN ORAL For High Blood Pressure>160 07/15/17 12:00 08/14/17 07:44 Docusate Sodium (Colace) 100 mg TWICE A DAY ORAL 07/15/17 18:00 08/09/17 09:44 07/15/17 17:21 Escitalopram Oxalate (Lexapro) 20 mg DAILY ORAL 07/16/17 09:00 08/14/17 08:59 07/21/17 09:35 Gabapentin (Neurontin) 300 mg THREE TIMES A DAY ORAL 07/21/17 18:00 08/20/17 17:59 Heparin Sodium (Porcine) (Heparin 5000 units/ml) 5,000 units EVERY 12 HOURS SUBQ 07/15/17 21:00 08/09/17 09:44 07/21/17 09:38 Levetiracetam (Keppra) 500 mg Q12HR ORAL 07/15/17 21:00 08/09/17 09:44 07/21/17 09:34 Prednisone (predniSONE) 40 mg DAILY ORAL 07/19/17 09:00 08/18/17 08:59 07/21/17 09:34 Quetiapine Fumarate (SEROquel) 25 mg BEDTIME ORAL 07/18/17 21:00 08/17/17 20:59 07/20/17 21:00 Theophylline (Paresh-Dur) 100 mg EVERY 12 HOURS ORAL 07/15/17 21:00 08/09/17 09:44 07/21/17 09:34 Magdalena Jones M.D. Jul 21, 2017 16:44
--- NOTE | 2017-07-21 17:38 | Diagnostic Imaging Report ---
Indication: Dyspnea Technique: XRAY Chest 1v Comparison: 07/20/2018 Findings: Patient rotated and leaning to the right. Heart size and mediastinal contours are stable. There is increase in haziness of the left lung, finding which may be artifactually exaggerated due to changes in patient positioning. No pneumothorax. No acute osseous abnormality seen. Impression: Apparent increased haziness of the left lung, possibly artifactual given changes in patient rotation/positioning. Follow-up exam recommended.
[2017-07-21 20:00] VITALS: BP 133/84
--- NOTE | 2017-07-21 23:08 | General Progress Note ---
Assessment/Plan Status: unchanged Assessment/Plan ASSESSMENT AND RECS: #. Leukocytosis related to underlying steroids. --> Resolved as of today. #. Anemia secondary to chronic disease. Continue to closely monitor. --> anemia w/u has been ordered and reviewed, no aid noted --> Blood transfusion not required today. Has been stable. #. Shortness of breath, related to underlying asthma exacerbation. On Levaquin for bacterial bronchitis. Continue per ID service. --> on bipap, pulm following #. Asthma exacerbation with infiltrates noted. Continue Tamiflu. #. Elevated bicarb, potentially related to acidosis, retention of CO2. #. Hypoglycemia, potentially related to steroids. #. Seizure disorder, currently stable #. Malnutrition Cdiff negative, bcx neg x4 Subjective Date patient seen: Jul 21, 2017 Constitutional: Denies: no symptoms, chills, diaphoresis, fever, malaise, weakness, other HEENT: Denies: no symptoms, eye pain, blurred vision, tearing, double vision, ear pain, ear discharge, nose pain, nose congestion, throat pain, throat swelling, mouth pain, mouth swelling, other Cardiovascular: Denies: no symptoms, chest pain, edema, irregular heart rate, lightheadedness, palpitations, syncope, other Respiratory: Denies: no symptoms, cough, orthopnea, shortness of breath, SOB with excertion, SOB at rest, sputum, stridor, wheezing, other Gastrointestinal/Abdominal: Denies: no symptoms, abdomen distended, abdominal pain, black stools, tarry stools, blood in stool, constipated, diarrhea, difficulty swallowing, nausea, poor appetite, poor fluid intake, rectal bleeding , vomiting, other Genitourinary: Denies: no symptoms, burning, discharge, frequency, flank pain, hematuria, incontinence, pain, urgency, other Hematologic/Lymphatic: Reports: anemia Allergies: Coded Allergies: No Known Allergies (Unverified , 02/19/17) Subjective On bipap. No acute distress. H/H stable. Objective Last 24 Hour Vital Signs Date Time Temp Pulse Resp B/P (MAP) Pulse Ox O2 Delivery O2 Flow Rate FiO2 07/21/17 22:49 106 20 95 Facial 50 07/21/17 20:40 111 22 96 Facial 50 07/21/17 20:00 98.8 119 20 133/84 97 Bi-pap 50 07/21/17 18:56 119 21 98 Facial 50 07/21/17 18:55 98 Bi-pap 50 07/21/17 18:55 Bi-pap 50 07/21/17 17:23 92 20 96 Facial 50 07/21/17 16:00 50 07/21/17 16:00 122 07/21/17 16:00 98.1 121 22 127/72 94 Bi-pap 50 07/21/17 14:52 88 26 95 Facial 50 07/21/17 13:18 92 20 95 Facial 50 07/21/17 12:00 50 07/21/17 12:00 118 07/21/17 12:00 98.0 123 24 111/58 95 Bi-pap 50 07/21/17 10:37 89 31 94 Facial 50 07/21/17 09:34 125 148/78 07/21/17 08:33 88 22 95 Facial 50 07/21/17 08:00 50 07/21/17 08:00 98.2 119 24 148/78 99 Bi-pap 50 07/21/17 07:54 119 07/21/17 06:32 Bi-pap 60 07/21/17 06:32 92 20 94 Facial 50 07/21/17 06:31 94 Bi-pap 60 07/21/17 05:20 98 28 95 Facial 50 07/21/17 04:00 50 07/21/17 04:00 128 07/21/17 04:00 98.0 77 20 144/72 98 Bi-pap 50 07/21/17 03:25 107 26 94 Facial 50 07/21/17 01:02 104 24 96 Facial 50 07/21/17 00:00 50 07/21/17 00:00 112 07/21/17 00:00 98.4 112 25 140/68 95 Bi-pap Intake and Output 07/20/17 07/21/17 19:00 07:00 Intake Total 750 ml Balance 750 ml Intake Oral 750 ml # Voids 4 # Bowel Movements 2 11 Laboratory Tests 07/21/17 03:30: White Blood Count 12.3H, Red Blood Count 3.28L, Hemoglobin 10.4L, Hematocrit 33.9L, Mean Corpuscular Volume 103H, Mean Corpuscular Hemoglobin 31.7H, Mean Corpuscular Hemoglobin Concent 30.7L, Red Cell Distribution Width 15.8H, Platelet Count 232, Mean Platelet Volume 7.1, Neutrophils (%) (Auto) 75.7H, Lymphocytes (%) (Auto) 17.9L, Monocytes (%) (Auto) 5.7, Eosinophils (%) (Auto) 0.3, Basophils (%) (Auto) 0.4, Sodium Level 146H, Potassium Level 3.6, Chloride Level 106, Carbon Dioxide Level 37H, Anion Gap 3L, Blood Urea Nitrogen 15, Creatinine 0.9, Estimat Glomerular Filtration Rate > 60, Glucose Level 152H, Calcium Level 8.9, Phosphorus Level 3.6, Magnesium Level 2.0, Total Bilirubin 0.2, Aspartate Amino Transf (AST/SGOT) 10L, Alanine Aminotransferase (ALT/SGPT) 9L, Alkaline Phosphatase 56, Total Protein 6.6, Albumin 2.8L, Globulin 3.8, Albumin/Globulin Ratio 0.7L 07/21/17 04:00: Arterial Blood pH 7.226*L, Arterial Blood Partial Pressure CO2 91.3*H, Arterial Blood Partial Pressure O2 82.2, Arterial Blood HCO3 37.0H, Arterial Blood Oxygen Saturation 94.9, Arterial Blood Base Excess 6.8, Lalito Test Positive Height (Feet): 5 Height (Inches): 5.00 Weight (Pounds): 250 Uche Leon Jul 21, 2017 23:08
[2017-07-22] VITALS: BP 137/80
[2017-07-22 04:00] VITALS: BP 141/71
[2017-07-22 07:00] LABS: BASOPHILS % (AUTO) 0.8 % (0.0-2.0); EOSINOPHILS % (AUTO) 0.3 % (0.0-3.0); HEMATOCRIT 37.3 % (37.0-47.0); HEMOGLOBIN 11.4 G/DL (12.0-16.0); LYMPHOCYTES % (AUTO) 14.1 % (20.0-45.0); MEAN CORPUSCULAR VOLUME 104 FL (80-99); MONOCYTES % (AUTO) 6.4 % (1.0-10.0); NEUTROPHILS % (AUTO) 78.5 % (45.0-75.0); PLATELET COUNT 218 K/UL (150-450); RED CELL DISTRIBUTION WIDTH 15.7 % (11.6-14.8); WHITE BLOOD COUNT 12.4 K/UL (4.8-10.8)
[2017-07-22 07:15] LABS: ALANINE AMINOTRANSFERASE 16 U/L (12-78); ALBUMIN/GLOBULIN RATIO 0.7 (1.0-2.7); ALKALINE PHOSPHATASE 59 U/L (46-116); ANION GAP 3 mmol/L (5-15); ASPARTATE AMINO TRANSFERASE 10 U/L (15-37); BILIRUBIN,TOTAL 0.2 MG/DL (0.2-1.0); BLOOD UREA NITROGEN 12 mg/dL (7-18); CALCIUM 8.9 MG/DL (8.5-10.1); CARBON DIOXIDE 37 MMOL/L (21-32); CHLORIDE 106 MMOL/L (98-107); CREATININE 0.9 MG/DL (0.55-1.30); PHOSPHORUS 3.8 MG/DL (2.5-4.9); POTASSIUM 3.5 MMOL/L (3.5-5.1); SODIUM 146 MMOL/L (136-145)
[2017-07-22 08:00] VITALS: BP 147/76
--- NOTE | 2017-07-22 08:17 | Pulmonology Progress Note ---
Assessment/Plan Problems: (1) Acute hypercapnic respiratory failure (2) Asthma exacerbation (3) Aspiration pneumonia (4) Ventriculo-peritoneal shunt status Assessment/Plan on abipap wbc still high dc prednisone continue abx, check cultures check electrolytes. Psych evaluation CT chest reviewed, no PE, not much infiltrate. pt's sister, next of kin, declined the transfer to ICU and oral intubation for a few days. She wants to wait and see for now. increase theophylline supportive care Subjective ROS Limited/Unobtainable: No Interval Events: doens't want to get off bipap Constitutional: Reports: no symptoms HEENT: Repors: no symptoms Respiratory: Reports: no symptoms Allergies: Coded Allergies: No Known Allergies (Unverified , 02/19/17) Objective Last 24 Hour Vital Signs Date Time Temp Pulse Resp B/P (MAP) Pulse Ox O2 Delivery O2 Flow Rate FiO2 07/22/17 08:00 50 07/22/17 08:00 97.8 125 19 147/76 97 Bi-pap 50 07/22/17 07:03 Bi-pap 50 07/22/17 07:03 97 Bi-pap 50 07/22/17 06:57 92 23 97 Facial 50 07/22/17 04:55 94 25 98 Facial 50 07/22/17 04:00 98.4 116 23 141/71 99 Bi-pap 50 07/22/17 04:00 50 07/22/17 04:00 116 07/22/17 03:03 96 22 97 Facial 50 07/22/17 01:16 99 20 96 Facial 50 07/22/17 00:00 108 07/22/17 00:00 50 07/22/17 00:00 98.4 108 20 137/80 99 Bi-pap 50 07/21/17 22:49 106 20 95 Facial 50 07/21/17 20:40 111 22 96 Facial 50 07/21/17 20:00 98.8 119 20 133/84 97 Bi-pap 50 07/21/17 20:00 50 07/21/17 19:33 120 07/21/17 18:56 119 21 98 Facial 50 07/21/17 18:55 98 Bi-pap 50 07/21/17 18:55 Bi-pap 50 07/21/17 17:23 92 20 96 Facial 50 07/21/17 16:00 50 07/21/17 16:00 122 07/21/17 16:00 98.1 121 22 127/72 94 Bi-pap 50 07/21/17 14:52 88 26 95 Facial 50 07/21/17 13:18 92 20 95 Facial 50 07/21/17 12:00 50 07/21/17 12:00 118 07/21/17 12:00 98.0 123 24 111/58 95 Bi-pap 50 07/21/17 10:37 89 31 94 Facial 50 07/21/17 09:34 125 148/78 07/21/17 08:33 88 22 95 Facial 50 Intake and Output 07/21/17 07/22/17 19:00 07:00 Intake Total 620 ml 600 ml Output Total 250 ml Balance 370 ml 600 ml Intake Oral 620 ml 600 ml Output Urine Total 250 ml # Voids 4 4 # Bowel Movements 3 General Appearance: WD/WN HEENT: normocephalic, atraumatic Respiratory/Chest: chest wall non-tender, lungs clear, chest wall tender Cardiovascular: normal peripheral pulses, regular rhythm Abdomen: soft, non tender, no organomegaly Genitourinary: normal external genitalia Extremities: no clubbing Skin: no rash Laboratory Tests 07/22/17 06:40: White Blood Count 12.4H, Red Blood Count 3.60L, Hemoglobin 11.4L, Hematocrit 37.3, Mean Corpuscular Volume 104H, Mean Corpuscular Hemoglobin 31.5H, Mean Corpuscular Hemoglobin Concent 30.4L, Red Cell Distribution Width 15.7H, Platelet Count 218, Mean Platelet Volume 7.5, Neutrophils (%) (Auto) 78.5H, Lymphocytes (%) (Auto) 14.1L, Monocytes (%) (Auto) 6.4, Eosinophils (%) (Auto) 0.3, Basophils (%) (Auto) 0.8, Erythrocyte Sedimentation Rate [Pending], Sodium Level 146H, Potassium Level 3.5, Chloride Level 106, Carbon Dioxide Level 37H, Anion Gap 3L, Blood Urea Nitrogen 12, Creatinine 0.9, Estimat Glomerular Filtration Rate > 60, Glucose Level 132H, Calcium Level 8.9, Phosphorus Level 3.8, Magnesium Level 2.0, Total Bilirubin 0.2, Aspartate Amino Transf (AST/SGOT ) 10L, Alanine Aminotransferase (ALT/SGPT) 16, Alkaline Phosphatase 59, C- Reactive Protein, Quantitative < 0.4, Total Protein 7.2, Albumin 3.0L, Globulin 4.2, Albumin/Globulin Ratio 0.7L Current Medications Medications (Trade) Dose Ordered Sig/Selvin Route PRN Reason Start Time Stop Time Status Last Admin Dose Admin Acetazolamide (Diamox) 250 mg TWICE A DAY ORAL 07/16/17 18:00 08/15/17 17:59 07/21/17 17:49 Amlodipine Besylate (Norvasc) 5 mg DAILY ORAL 07/16/17 09:00 08/09/17 09:44 07/21/17 09:34 Clonidine HCl (Catapres) 0.1 mg EVERY 6 HOURS PRN ORAL For High Blood Pressure>160 07/15/17 12:00 08/14/17 07:44 Docusate Sodium (Colace) 100 mg TWICE A DAY ORAL 07/15/17 18:00 08/09/17 09:44 07/15/17 17:21 Escitalopram Oxalate (Lexapro) 20 mg DAILY ORAL 07/16/17 09:00 08/14/17 08:59 07/21/17 09:35 Gabapentin (Neurontin) 300 mg THREE TIMES A DAY ORAL 07/21/17 18:00 08/20/17 17:59 07/21/17 17:49 Heparin Sodium (Porcine) (Heparin 5000 units/ml) 5,000 units EVERY 12 HOURS SUBQ 07/15/17 21:00 08/09/17 09:44 07/21/17 22:13 Levetiracetam (Keppra) 500 mg Q12HR ORAL 07/15/17 21:00 08/09/17 09:44 07/21/17 22:10 Prednisone (predniSONE) 40 mg DAILY ORAL 07/19/17 09:00 08/18/17 08:59 07/21/17 09:34 Quetiapine Fumarate (SEROquel) 25 mg BEDTIME ORAL 07/18/17 21:00 08/17/17 20:59 07/21/17 22:10 Theophylline (Paresh-Dur) 100 mg EVERY 12 HOURS ORAL 07/15/17 21:00 08/09/17 09:44 07/21/17 22:11 CRISTINA BRAMBILA Jul 22, 2017 08:17
[2017-07-22] MEDS: Docusate 100mg cap ORAL SCH ×2 (09:00→17:30)
[2017-07-22] MEDS: Theophylline ER 100mg ORAL SCH ×2 (09:14→21:05)
[2017-07-22] MEDS: Heparin 5000 units/ml inj SUBQ SCH ×2 (09:19→21:06)
[2017-07-22 12:00] VITALS: BP 131/56
--- NOTE | 2017-07-22 14:38 | Infectious Diseases Prog Note ---
Assessment/Plan Assessment/Plan A: Asthma exacerbation- r/o Influenza, r/o bacterial bronchitis-possible PNA-; s/p Rx r/o fungal PNA- possibly ANNETTE, ?obesity hypoventilation syndrome contributing BiPAP on/off , C02 retention -CXR 07/13: Right greater than left patchy and nodular airspace opacities are again demonstrated, unchanged. There is probably a small amount of fluid along the major fissure. -CXR: Bilateral diffuse infiltrates versus edema -sp cx normal tristen -HIV 07/11 ab neg, CrAg neg Leukocytosis, (on steroids),-mild, recurrent- -Cdiff 07/17 neg -Bcx Neg x4 -influenza test ordered, never done- treated empirically Plan: - Continue to monitor off abx -07/19 SP Levaquin #5 -07/17 SP Zosyn #7 -07/15 SP Tamiflu #5/5 -07/11 SP Levaquin #3 -Monitor CBC/BMP, temperatures; trend WBC- if continues to worsen will repeat cultures -aspiration precautions -f/u cocci ab Subjective Allergies: Coded Allergies: No Known Allergies (Unverified , 02/19/17) Subjective comfortable Objective Vital Signs Last 24 Hour Vital Signs Date Time Temp Pulse Resp B/P (MAP) Pulse Ox O2 Delivery O2 Flow Rate FiO2 07/22/17 13:15 93 20 98 Facial 50 07/22/17 12:00 50 07/22/17 12:00 114 07/22/17 12:00 97.8 118 20 131/56 96 Bi-pap 50 07/22/17 11:03 92 28 97 Facial 50 07/22/17 09:13 96 147/76 07/22/17 08:41 96 22 98 Facial 50 07/22/17 08:00 131 07/22/17 08:00 50 07/22/17 08:00 97.8 125 19 147/76 97 Bi-pap 50 07/22/17 07:03 Bi-pap 50 07/22/17 07:03 97 Bi-pap 50 07/22/17 06:57 92 23 97 Facial 50 07/22/17 04:55 94 25 98 Facial 50 07/22/17 04:00 98.4 116 23 141/71 99 Bi-pap 50 07/22/17 04:00 50 07/22/17 04:00 116 07/22/17 03:03 96 22 97 Facial 50 07/22/17 01:16 99 20 96 Facial 50 07/22/17 00:00 108 07/22/17 00:00 50 07/22/17 00:00 98.4 108 20 137/80 99 Bi-pap 50 07/21/17 22:49 106 20 95 Facial 50 07/21/17 20:40 111 22 96 Facial 50 07/21/17 20:00 98.8 119 20 133/84 97 Bi-pap 50 07/21/17 20:00 50 07/21/17 19:33 120 07/21/17 18:56 119 21 98 Facial 50 07/21/17 18:55 98 Bi-pap 50 07/21/17 18:55 Bi-pap 50 07/21/17 17:23 92 20 96 Facial 50 07/21/17 16:00 50 07/21/17 16:00 122 07/21/17 16:00 98.1 121 22 127/72 94 Bi-pap 50 07/21/17 14:52 88 26 95 Facial 50 Height (Feet): 5 Height (Inches): 5.00 Weight (Pounds): 250 HEENT: mucous membranes moist Respiratory/Chest: normal breath sounds Cardiovascular: normal rate Abdomen: no mass Laboratory Tests Test 07/22/17 06:40 White Blood Count 12.4 K/UL (4.8-10.8) H Red Blood Count 3.60 M/UL (4.20-5.40) L Hemoglobin 11.4 G/DL (12.0-16.0) L Hematocrit 37.3 % (37.0-47.0) Mean Corpuscular Volume 104 FL (80-99) H Mean Corpuscular Hemoglobin 31.5 PG (27.0-31.0) H Mean Corpuscular Hemoglobin Concent 30.4 G/DL (32.0-36.0) L Red Cell Distribution Width 15.7 % (11.6-14.8) H Platelet Count 218 K/UL (150-450) Mean Platelet Volume 7.5 FL (6.5-10.1) Neutrophils (%) (Auto) 78.5 % (45.0-75.0) H Lymphocytes (%) (Auto) 14.1 % (20.0-45.0) L Monocytes (%) (Auto) 6.4 % (1.0-10.0) Eosinophils (%) (Auto) 0.3 % (0.0-3.0) Basophils (%) (Auto) 0.8 % (0.0-2.0) Erythrocyte Sedimentation Rate 32 MM/HR (0-20) H Sodium Level 146 MMOL/L (136-145) H Potassium Level 3.5 MMOL/L (3.5-5.1) Chloride Level 106 MMOL/L (98-107) Carbon Dioxide Level 37 MMOL/L (21-32) H Anion Gap 3 mmol/L (5-15) L Blood Urea Nitrogen 12 mg/dL (7-18) Creatinine 0.9 MG/DL (0.55-1.30) Estimat Glomerular Filtration Rate > 60 mL/min (>60) Glucose Level 132 MG/DL (74-106) H Calcium Level 8.9 MG/DL (8.5-10.1) Phosphorus Level 3.8 MG/DL (2.5-4.9) Magnesium Level 2.0 MG/DL (1.8-2.4) Total Bilirubin 0.2 MG/DL (0.2-1.0) Aspartate Amino Transf (AST/SGOT) 10 U/L (15-37) L Alanine Aminotransferase (ALT/SGPT) 16 U/L (12-78) Alkaline Phosphatase 59 U/L (46-116) C-Reactive Protein, Quantitative < 0.4 mg/dL (0.00-0.90) Total Protein 7.2 G/DL (6.4-8.2) Albumin 3.0 G/DL (3.4-5.0) L Globulin 4.2 g/dL Albumin/Globulin Ratio 0.7 (1.0-2.7) L Current Medications Medications (Trade) Dose Ordered Sig/Selvin Route PRN Reason Start Time Stop Time Status Last Admin Dose Admin Acetaminophen (Tylenol) 650 mg Q4H PRN ORAL Mild Pain/Temp > 100.5 07/22/17 11:15 18 11:14 07/22/17 13:59 Acetazolamide (Diamox) 250 mg TWICE A DAY ORAL 07/16/17 18:00 08/15/17 17:59 07/22/17 09:14 Amlodipine Besylate (Norvasc) 5 mg DAILY ORAL 07/16/17 09:00 08/09/17 09:44 07/22/17 09:13 Clonidine HCl (Catapres) 0.1 mg EVERY 6 HOURS PRN ORAL For High Blood Pressure>160 07/15/17 12:00 08/14/17 07:44 Docusate Sodium (Colace) 100 mg TWICE A DAY ORAL 07/15/17 18:00 08/09/17 09:44 07/15/17 17:21 Escitalopram Oxalate (Lexapro) 20 mg DAILY ORAL 07/16/17 09:00 08/14/17 08:59 07/22/17 09:14 Gabapentin (Neurontin) 300 mg THREE TIMES A DAY ORAL 07/21/17 18:00 08/20/17 17:59 07/22/17 12:39 Heparin Sodium (Porcine) (Heparin 5000 units/ml) 5,000 units EVERY 12 HOURS SUBQ 07/15/17 21:00 08/09/17 09:44 07/22/17 09:19 Levetiracetam (Keppra) 500 mg Q12HR ORAL 07/15/17 21:00 08/09/17 09:44 07/22/17 09:14 Quetiapine Fumarate (SEROquel) 25 mg BEDTIME ORAL 07/18/17 21:00 08/17/17 20:59 07/21/17 22:10 Theophylline (Paresh-Dur) 200 mg EVERY 12 HOURS ORAL 07/22/17 09:00 08/21/17 08:59 07/22/17 09:14 JAYY HARMAN M.D. Jul 22, 2017 14:38
[2017-07-22 16:00] VITALS: BP 138/73
[2017-07-22] MEDS ORDERED: NS 275ml ONE ×2 (17:28→18:20)
[2017-07-22] MEDS ORDERED: Tubing IV Secondary IV ONE (18:20)
[2017-07-22] MEDS ORDERED: NS 500ML ONE (18:20)
--- NOTE | 2017-07-22 18:51 | General Progress Note ---
Assessment/Plan Status: stable Subjective Date patient seen: Jul 20, 2017 Neurologic/Psychiatric: Reports: anxiety, depressed, emotional problems Allergies: Coded Allergies: No Known Allergies (Unverified , 02/19/17) Objective Last 24 Hour Vital Signs Date Time Temp Pulse Resp B/P (MAP) Pulse Ox O2 Delivery O2 Flow Rate FiO2 07/22/17 17:29 92 20 98 Facial 50 07/22/17 16:00 50 07/22/17 16:00 97.8 108 19 138/73 97 Bi-pap 50 07/22/17 16:00 104 07/22/17 14:41 95 26 98 Facial 50 07/22/17 13:15 93 20 98 Facial 50 07/22/17 12:00 50 07/22/17 12:00 114 07/22/17 12:00 97.8 118 20 131/56 96 Bi-pap 50 07/22/17 11:03 92 28 97 Facial 50 07/22/17 09:13 96 147/76 07/22/17 08:41 96 22 98 Facial 50 07/22/17 08:00 131 07/22/17 08:00 50 07/22/17 08:00 97.8 125 19 147/76 97 Bi-pap 50 07/22/17 07:03 Bi-pap 50 07/22/17 07:03 97 Bi-pap 50 07/22/17 06:57 92 23 97 Facial 50 07/22/17 04:55 94 25 98 Facial 50 07/22/17 04:00 98.4 116 23 141/71 99 Bi-pap 50 07/22/17 04:00 50 07/22/17 04:00 116 07/22/17 03:03 96 22 97 Facial 50 07/22/17 01:16 99 20 96 Facial 50 07/22/17 00:00 108 07/22/17 00:00 50 07/22/17 00:00 98.4 108 20 137/80 99 Bi-pap 50 07/21/17 22:49 106 20 95 Facial 50 07/21/17 20:40 111 22 96 Facial 50 07/21/17 20:00 98.8 119 20 133/84 97 Bi-pap 50 07/21/17 20:00 50 07/21/17 19:33 120 07/21/17 18:56 119 21 98 Facial 50 07/21/17 18:55 98 Bi-pap 50 07/21/17 18:55 Bi-pap 50 Intake and Output 07/21/17 07/22/17 19:00 07:00 Intake Total 620 ml 600 ml Output Total 250 ml Balance 370 ml 600 ml Intake Oral 620 ml 600 ml Output Urine Total 250 ml # Voids 4 4 # Bowel Movements 3 Laboratory Tests 07/22/17 06:40: White Blood Count 12.4H, Red Blood Count 3.60L, Hemoglobin 11.4L, Hematocrit 37.3, Mean Corpuscular Volume 104H, Mean Corpuscular Hemoglobin 31.5H, Mean Corpuscular Hemoglobin Concent 30.4L, Red Cell Distribution Width 15.7H, Platelet Count 218, Mean Platelet Volume 7.5, Neutrophils (%) (Auto) 78.5H, Lymphocytes (%) (Auto) 14.1L, Monocytes (%) (Auto) 6.4, Eosinophils (%) (Auto) 0.3, Basophils (%) (Auto) 0.8, Erythrocyte Sedimentation Rate 32H, Sodium Level 146H, Potassium Level 3.5, Chloride Level 106, Carbon Dioxide Level 37H, Anion Gap 3L, Blood Urea Nitrogen 12, Creatinine 0.9, Estimat Glomerular Filtration Rate > 60, Glucose Level 132H, Calcium Level 8.9, Phosphorus Level 3.8, Magnesium Level 2.0, Total Bilirubin 0.2, Aspartate Amino Transf (AST/SGOT) 10L , Alanine Aminotransferase (ALT/SGPT) 16, Alkaline Phosphatase 59, C-Reactive Protein, Quantitative < 0.4, Total Protein 7.2, Albumin 3.0L, Globulin 4.2, Albumin/Globulin Ratio 0.7L Height (Feet): 5 Height (Inches): 5.00 Weight (Pounds): 250 General Appearance: no apparent distress, alert, agitated Neurologic: alert, oriented x 3, responsive, depressed affect Cory Mcbride M.D. Jul 22, 2017 18:52
[2017-07-22 20:00] VITALS: BP 120/70
[2017-07-23] VITALS: BP 130/72
--- NOTE | 2017-07-23 03:41 | General Progress Note ---
Assessment/Plan Status: stable Assessment/Plan ASSESSMENT AND RECS: #. Leukocytosis related to underlying steroids. --> Resolved as of today. #. Anemia secondary to chronic disease. Continue to closely monitor. --> anemia w/u has been ordered and reviewed, no aid noted --> Blood transfusion not required today. Has been stable >7 #. Shortness of breath, related to underlying asthma exacerbation. On Levaquin for bacterial bronchitis. Continue per ID service. --> on bipap, pulm following #. Asthma exacerbation with infiltrates noted. Continue Tamiflu. #. Elevated bicarb, potentially related to acidosis, retention of CO2. #. Hypoglycemia, potentially related to steroids. #. Seizure disorder, currently stable #. Malnutrition Cdiff negative, bcx neg x4 Subjective Date patient seen: Jul 22, 2017 Constitutional: Denies: no symptoms, chills, diaphoresis, fever, malaise, weakness, other HEENT: Denies: no symptoms, eye pain, blurred vision, tearing, double vision, ear pain, ear discharge, nose pain, nose congestion, throat pain, throat swelling, mouth pain, mouth swelling, other Cardiovascular: Denies: no symptoms, chest pain, edema, irregular heart rate, lightheadedness, palpitations, syncope, other Respiratory: Denies: no symptoms, cough, orthopnea, shortness of breath, SOB with excertion, SOB at rest, sputum, stridor, wheezing, other Gastrointestinal/Abdominal: Denies: no symptoms, abdomen distended, abdominal pain, black stools, tarry stools, blood in stool, constipated, diarrhea, difficulty swallowing, nausea, poor appetite, poor fluid intake, rectal bleeding , vomiting, other Genitourinary: Denies: no symptoms, burning, discharge, frequency, flank pain, hematuria, incontinence, pain, urgency, other Allergies: Coded Allergies: No Known Allergies (Unverified , 02/19/17) Subjective On bipap. No major events. Anemia has been stable. Objective Last 24 Hour Vital Signs Date Time Temp Pulse Resp B/P (MAP) Pulse Ox O2 Delivery O2 Flow Rate FiO2 07/23/17 03:10 98 20 97 Facial 50 07/23/17 01:01 93 20 98 Facial 50 07/22/17 23:19 94 20 97 Facial 50 07/22/17 20:37 99 22 97 Facial 50 07/22/17 20:00 50 07/22/17 20:00 97.7 105 26 120/70 98 Bi-pap 50 07/22/17 20:00 110 07/22/17 18:57 102 22 95 Facial 50 07/22/17 18:57 Bi-pap 50 07/22/17 18:56 95 Bi-pap 50 07/22/17 17:29 92 20 98 Facial 50 07/22/17 16:00 50 07/22/17 16:00 97.8 108 19 138/73 97 Bi-pap 50 07/22/17 16:00 104 07/22/17 14:41 95 26 98 Facial 50 07/22/17 13:15 93 20 98 Facial 50 07/22/17 12:00 50 07/22/17 12:00 114 07/22/17 12:00 97.8 118 20 131/56 96 Bi-pap 50 07/22/17 11:03 92 28 97 Facial 50 07/22/17 09:13 96 147/76 07/22/17 08:41 96 22 98 Facial 50 07/22/17 08:00 131 07/22/17 08:00 50 07/22/17 08:00 97.8 125 19 147/76 97 Bi-pap 50 07/22/17 07:03 Bi-pap 50 07/22/17 07:03 97 Bi-pap 50 07/22/17 06:57 92 23 97 Facial 50 07/22/17 04:55 94 25 98 Facial 50 07/22/17 04:00 98.4 116 23 141/71 99 Bi-pap 50 07/22/17 04:00 50 07/22/17 04:00 116 Intake and Output 07/22/17 07/23/17 19:00 07:00 Intake Total 800 ml Output Total 200 ml Balance 800 ml -200 ml Intake Oral 800 ml Output Urine Total 200 ml # Voids 3 1 Laboratory Tests 07/22/17 06:40: White Blood Count 12.4H, Red Blood Count 3.60L, Hemoglobin 11.4L, Hematocrit 37.3, Mean Corpuscular Volume 104H, Mean Corpuscular Hemoglobin 31.5H, Mean Corpuscular Hemoglobin Concent 30.4L, Red Cell Distribution Width 15.7H, Platelet Count 218, Mean Platelet Volume 7.5, Neutrophils (%) (Auto) 78.5H, Lymphocytes (%) (Auto) 14.1L, Monocytes (%) (Auto) 6.4, Eosinophils (%) (Auto) 0.3, Basophils (%) (Auto) 0.8, Erythrocyte Sedimentation Rate 32H, Sodium Level 146H, Potassium Level 3.5, Chloride Level 106, Carbon Dioxide Level 37H, Anion Gap 3L, Blood Urea Nitrogen 12, Creatinine 0.9, Estimat Glomerular Filtration Rate > 60, Glucose Level 132H, Calcium Level 8.9, Phosphorus Level 3.8, Magnesium Level 2.0, Total Bilirubin 0.2, Aspartate Amino Transf (AST/SGOT) 10L , Alanine Aminotransferase (ALT/SGPT) 16, Alkaline Phosphatase 59, C-Reactive Protein, Quantitative < 0.4, Total Protein 7.2, Albumin 3.0L, Globulin 4.2, Albumin/Globulin Ratio 0.7L Height (Feet): 5 Height (Inches): 5.00 Weight (Pounds): 250 General Appearance: no apparent distress EENT: normal ENT inspection Cardiovascular: normal peripheral pulses, normal rate, regular rhythm Respiratory/Chest: lungs clear Abdomen: normal bowel sounds, non tender, soft Uche Leon Jul 23, 2017 03:41
[2017-07-23 03:55] VITALS: BP 146/71
[2017-07-23 08:00] VITALS: BP 120/47
--- NOTE | 2017-07-23 09:15 | Pulmonology Progress Note ---
Assessment/Plan Problems: (1) Acute hypercapnic respiratory failure (2) Asthma exacerbation (3) Aspiration pneumonia (4) Ventriculo-peritoneal shunt status Assessment/Plan on bipap, can't come off , refusing intubation wbc still high continue abx, check cultures check electrolytes. Psych evaluation CT chest reviewed, no PE, not much infiltrate. increase theophylline supportive care Subjective ROS Limited/Unobtainable: No Constitutional: Reports: no symptoms HEENT: Repors: no symptoms Respiratory: Reports: no symptoms Allergies: Coded Allergies: No Known Allergies (Unverified , 02/19/17) Objective Last 24 Hour Vital Signs Date Time Temp Pulse Resp B/P (MAP) Pulse Ox O2 Delivery O2 Flow Rate FiO2 07/23/17 08:51 103 22 98 Facial 50 07/23/17 07:03 Bi-pap 50 07/23/17 07:03 98 Bi-pap 50 07/23/17 06:58 92 22 98 Facial 50 07/23/17 05:18 99 24 97 Facial 50 07/23/17 04:00 50 07/23/17 04:00 101 07/23/17 03:55 97.9 101 21 146/71 97 Bi-pap 50 07/23/17 03:10 98 20 97 Facial 50 07/23/17 01:01 93 20 98 Facial 50 07/23/17 00:00 108 07/23/17 00:00 97.7 103 26 130/72 98 Bi-pap 50 07/23/17 00:00 50 07/22/17 23:19 94 20 97 Facial 50 07/22/17 20:37 99 22 97 Facial 50 07/22/17 20:00 50 07/22/17 20:00 97.7 105 26 120/70 98 Bi-pap 50 07/22/17 20:00 110 07/22/17 18:57 102 22 95 Facial 50 07/22/17 18:57 Bi-pap 50 07/22/17 18:56 95 Bi-pap 50 07/22/17 17:29 92 20 98 Facial 50 07/22/17 16:00 50 07/22/17 16:00 97.8 108 19 138/73 97 Bi-pap 50 07/22/17 16:00 104 07/22/17 14:41 95 26 98 Facial 50 07/22/17 13:15 93 20 98 Facial 50 07/22/17 12:00 50 07/22/17 12:00 114 07/22/17 12:00 97.8 118 20 131/56 96 Bi-pap 50 07/22/17 11:03 92 28 97 Facial 50 Intake and Output 07/22/17 07/23/17 19:00 07:00 Intake Total 800 ml 600 ml Output Total 1350 ml Balance 800 ml -750 ml Intake Oral 800 ml 600 ml Output Urine Total 1350 ml # Voids 3 6 General Appearance: WD/WN HEENT: normocephalic, atraumatic Respiratory/Chest: chest wall non-tender Breasts: no masses Cardiovascular: normal peripheral pulses, regular rhythm Abdomen: normal bowel sounds Extremities: no cyanosis, no clubbing Skin: no rash Current Medications Medications (Trade) Dose Ordered Sig/Selvin Route PRN Reason Start Time Stop Time Status Last Admin Dose Admin Acetaminophen (Tylenol) 650 mg Q4H PRN ORAL Mild Pain/Temp > 100.5 07/22/17 11:15 08/21/17 11:14 07/23/17 03:54 Acetazolamide (Diamox) 250 mg TWICE A DAY ORAL 07/16/17 18:00 08/15/17 17:59 07/22/17 17:30 Amlodipine Besylate (Norvasc) 5 mg DAILY ORAL 07/16/17 09:00 08/09/17 09:44 07/22/17 09:13 Clonidine HCl (Catapres) 0.1 mg EVERY 6 HOURS PRN ORAL For High Blood Pressure>160 07/15/17 12:00 08/14/17 07:44 Docusate Sodium (Colace) 100 mg TWICE A DAY ORAL 07/15/17 18:00 08/09/17 09:44 07/15/17 17:21 Escitalopram Oxalate (Lexapro) 20 mg DAILY ORAL 07/16/17 09:00 08/14/17 08:59 07/22/17 09:14 Gabapentin (Neurontin) 300 mg THREE TIMES A DAY ORAL 07/21/17 18:00 08/20/17 17:59 07/22/17 17:30 Heparin Sodium (Porcine) (Heparin 5000 units/ml) 5,000 units EVERY 12 HOURS SUBQ 07/15/17 21:00 08/09/17 09:44 1/13/18 21:06 Levetiracetam (Keppra) 500 mg Q12HR ORAL 07/15/17 21:00 08/09/17 09:44 07/22/17 21:05 Quetiapine Fumarate (SEROquel) 25 mg BEDTIME ORAL 07/18/17 21:00 08/17/17 20:59 07/22/17 21:05 Theophylline (Paresh-Dur) 200 mg EVERY 12 HOURS ORAL 07/22/17 09:00 08/21/17 08:59 07/22/17 21:05 CRISTINA BRAMBILA Jul 23, 2017 09:15
[2017-07-23] MEDS: Docusate 100mg cap ORAL SCH ×2 (09:18→18:00)
[2017-07-23] MEDS: Theophylline ER 100mg ORAL SCH ×2 (09:19→21:29)
[2017-07-23] MEDS: Heparin 5000 units/ml inj SUBQ SCH ×2 (09:23→21:29)
[2017-07-23 12:00] VITALS: BP 141/70
[2017-07-23 16:00] VITALS: BP 139/89
[2017-07-23 20:00] VITALS: BP 125/73
[2017-07-24] VITALS (7 sets, daily range): BP systolic 126–153; BP diastolic 62–87
[2017-07-24 05:52] LABS: BASOPHILS % (AUTO) 1.1 % (0.0-2.0); HEMATOCRIT 33.4 % (37.0-47.0); HEMOGLOBIN 10.2 G/DL (12.0-16.0); LYMPHOCYTES % (AUTO) 15.2 % (20.0-45.0); MEAN CORPUSCULAR VOLUME 102 FL (80-99); NEUTROPHILS % (AUTO) 76.7 % (45.0-75.0); PLATELET COUNT 158 K/UL (150-450); RED BLOOD COUNT 3.29 M/UL (4.20-5.40); RED CELL DISTRIBUTION WIDTH 15.6 % (11.6-14.8); WHITE BLOOD COUNT 8.7 K/UL (4.8-10.8)
[2017-07-24 06:13] LABS: ANION GAP 3 mmol/L (5-15); BLOOD UREA NITROGEN 12 mg/dL (7-18); CARBON DIOXIDE 36 MMOL/L (21-32); CHLORIDE 106 MMOL/L (98-107); CREATININE 0.8 MG/DL (0.55-1.30); POTASSIUM 3.6 MMOL/L (3.5-5.1); SODIUM 145 MMOL/L (136-145)
[2017-07-24 06:14] LABS: ALANINE AMINOTRANSFERASE 14 U/L (12-78); ALBUMIN 2.7 G/DL (3.4-5.0); ALBUMIN/GLOBULIN RATIO 0.7 (1.0-2.7); ALKALINE PHOSPHATASE 43 U/L (46-116); ASPARTATE AMINO TRANSFERASE 10 U/L (15-37); BILIRUBIN,TOTAL 0.2 MG/DL (0.2-1.0); CALCIUM 8.8 MG/DL (8.5-10.1)
[2017-07-24] MEDS: Theophylline ER 100mg ORAL SCH ×2 (09:04→20:40)
[2017-07-24] MEDS: Docusate 100mg cap ORAL SCH ×2 (09:04→17:37)
[2017-07-24] MEDS: Heparin 5000 units/ml inj SUBQ SCH ×2 (09:05→20:41)
--- NOTE | 2017-07-24 09:32 | Diagnostic Imaging Report ---
Indication: Dyspnea Technique: XRAY Chest 1v Comparison: 07/21/2017 Findings: Stable cardiomegaly. Perihilar opacities persists, somewhat decreased on the right. There is no pneumothorax. Symmetric haziness of the left lung again noted, possibly artifactual. No acute osseous abnormality seen. Impression: Cardiomegaly with persistent bilateral perihilar hazy opacities, slightly decreased on the right.
--- NOTE | 2017-07-24 10:23 | Pulmonology Progress Note ---
Assessment/Plan Problems: (1) Acute hypercapnic respiratory failure (2) Asthma exacerbation (3) Aspiration pneumonia (4) Ventriculo-peritoneal shunt status Assessment/Plan on bipap, can't come off , refusing intubation wbc normal continue abx, check cultures check electrolytes. try full face mask Subjective Constitutional: Reports: no symptoms HEENT: Repors: no symptoms Allergies: Coded Allergies: No Known Allergies (Unverified , 02/19/17) Objective Last 24 Hour Vital Signs Date Time Temp Pulse Resp B/P (MAP) Pulse Ox O2 Delivery O2 Flow Rate FiO2 07/24/17 09:04 92 145/74 07/24/17 08:38 92 22 98 Facial 40 07/24/17 08:10 90 07/24/17 08:00 97.7 102 21 145/74 100 Bi-pap 50 07/24/17 08:00 40 07/24/17 07:17 98 21 97 Facial 40 07/24/17 07:15 Bi-pap 40 07/24/17 07:15 97 Bi-pap 40 07/24/17 06:00 98.1 102 20 135/87 95 Bi-pap 50 07/24/17 05:31 87 22 98 Facial 50 07/24/17 04:00 97 07/24/17 04:00 50 07/24/17 04:00 98.1 102 20 135/87 95 Bi-pap 50 07/24/17 03:57 98 21 96 Facial 50 07/24/17 01:43 101 21 97 Facial 50 07/24/17 00:00 104 07/24/17 00:00 97.3 98 20 126/62 97 Bi-pap 50 07/23/17 23:44 94 20 96 Facial 50 07/23/17 20:40 113 24 97 Facial 50 07/23/17 20:00 108 07/23/17 20:00 97.5 97 20 125/73 99 Bi-pap 50 07/23/17 20:00 50 07/23/17 19:30 Bi-pap 50 07/23/17 19:30 97 Bi-pap 50 07/23/17 17:03 103 20 96 Facial 50 07/23/17 16:37 50 07/23/17 16:00 97.5 106 22 139/89 99 Bi-pap 50 07/23/17 16:00 92 07/23/17 14:58 100 20 95 Facial 50 07/23/17 12:48 102 23 97 Facial 50 07/23/17 12:00 88 07/23/17 12:00 97.0 97 22 141/70 98 Bi-pap 50 07/23/17 12:00 50 07/23/17 10:37 98 28 95 Facial 50 Intake and Output 07/23/17 07/24/17 19:00 07:00 Intake Total 500 ml 450 ml Output Total 1 ml 501 ml Balance 499 ml -51 ml Intake Oral 500 ml 450 ml Output Urine Total 500 ml Stool Total 1 ml 1 ml # Voids 3 3 # Bowel Movements 1 General Appearance: WD/WN HEENT: normocephalic Respiratory/Chest: chest wall non-tender, normal breath sounds Breasts: no masses Cardiovascular: normal peripheral pulses Abdomen: normal bowel sounds, soft, non tender Genitourinary: normal external genitalia Skin: no rash 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 Laboratory Tests 07/24/17 05:10: White Blood Count 8.7, Red Blood Count 3.29L, Hemoglobin 10.2L, Hematocrit 33.4L , Mean Corpuscular Volume 102H, Mean Corpuscular Hemoglobin 31.0, Mean Corpuscular Hemoglobin Concent 30.5L, Red Cell Distribution Width 15.6H, Platelet Count 158, Mean Platelet Volume 8.0, Neutrophils (%) (Auto) 76.7H, Lymphocytes (%) (Auto) 15.2L, Monocytes (%) (Auto) 6.0, Eosinophils (%) (Auto) 1.0, Basophils (%) (Auto) 1.1, Sodium Level 145, Potassium Level 3.6, Chloride Level 106, Carbon Dioxide Level 36H, Anion Gap 3L, Blood Urea Nitrogen 12, Creatinine 0.8, Estimat Glomerular Filtration Rate > 60, Glucose Level 102, Calcium Level 8.8, Phosphorus Level 3.0, Magnesium Level 1.8, Total Bilirubin 0.2, Aspartate Amino Transf (AST/SGOT) 10L, Alanine Aminotransferase (ALT/SGPT) 14, Alkaline Phosphatase 43L, Total Protein 6.4, Albumin 2.7L, Globulin 3.7, Albumin/Globulin Ratio 0.7L 07/24/17 07:29: Arterial Blood pH 7.290L, Arterial Blood Partial Pressure CO2 73.0*H, Arterial Blood Partial Pressure O2 104.1H, Arterial Blood HCO3 34.8H, Arterial Blood Oxygen Saturation 97.2, Arterial Blood Base Excess 6.4, Lalito Test Positive Current Medications Medications (Trade) Dose Ordered Sig/Selvin Route PRN Reason Start Time Stop Time Status Last Admin Dose Admin Acetaminophen (Tylenol) 650 mg Q4H PRN ORAL Mild Pain/Temp > 100.5 07/22/17 11:15 08/21/17 11:14 07/24/17 02:19 Acetazolamide (Diamox) 250 mg TWICE A DAY ORAL 07/16/17 18:00 08/15/17 17:59 07/24/17 09:04 Amlodipine Besylate (Norvasc) 5 mg DAILY ORAL 07/16/17 09:00 08/09/17 09:44 07/24/17 09:04 Clonidine HCl (Catapres) 0.1 mg EVERY 6 HOURS PRN ORAL For High Blood Pressure>160 07/15/17 12:00 08/14/17 07:44 Docusate Sodium (Colace) 100 mg TWICE A DAY ORAL 07/15/17 18:00 08/09/17 09:44 07/24/17 09:04 Escitalopram Oxalate (Lexapro) 20 mg DAILY ORAL 07/16/17 09:00 08/14/17 08:59 07/24/17 09:04 Gabapentin (Neurontin) 300 mg THREE TIMES A DAY ORAL 07/21/17 18:00 08/20/17 17:59 07/24/17 09:04 Heparin Sodium (Porcine) (Heparin 5000 units/ml) 5,000 units EVERY 12 HOURS SUBQ 07/15/17 21:00 08/09/17 09:44 07/24/17 09:05 Levetiracetam (Keppra) 500 mg Q12HR ORAL 07/15/17 21:00 08/09/17 09:44 07/24/17 09:04 Quetiapine Fumarate (SEROquel) 25 mg BEDTIME ORAL 07/18/17 21:00 08/17/17 20:59 07/23/17 21:30 Theophylline (Paresh-Dur) 200 mg EVERY 12 HOURS ORAL 07/22/17 09:00 08/21/17 08:59 07/24/17 09:04 CRISTINA BRAMBILA Jul 24, 2017 10:23
--- NOTE | 2017-07-24 12:08 | Infectious Diseases Prog Note ---
Assessment/Plan Assessment/Plan A: Asthma exacerbation- r/o Influenza, r/o bacterial bronchitis-possible PNA-; s/p Rx r/o fungal PNA- possibly ANNETTE, ?obesity hypoventilation syndrome contributing BiPAP on/off , C02 retention -CXR 07/24Cardiomegaly with persistent bilateral perihilar hazy opacities, slightly decreased on the right. -CXR: Bilateral diffuse infiltrates versus edema -sp cx normal tristen -HIV 07/11 ab neg, CrAg neg Leukocytosis, SP -Cdiff 07/17 neg -Bcx Neg x4 -influenza test ordered, never done- treated empirically Plan: - Continue to monitor off abx -07/19 SP Levaquin #5 -07/17 SP Zosyn #7 -07/15 SP Tamiflu #5/5 -2 SP Levaquin #3 -Monitor CBC/BMP, temperatures; trend WBC- if continues to worsen will repeat cultures -aspiration precautions -f/u cocci ab Subjective Allergies: Coded Allergies: No Known Allergies (Unverified , 02/19/17) Subjective afebrile comfortable Objective Vital Signs Last 24 Hour Vital Signs Date Time Temp Pulse Resp B/P (MAP) Pulse Ox O2 Delivery O2 Flow Rate FiO2 07/24/17 11:28 93 21 99 Facial 40 07/24/17 09:04 92 145/74 07/24/17 08:38 92 22 98 Facial 40 07/24/17 08:10 90 07/24/17 08:00 97.7 102 21 145/74 100 Bi-pap 50 07/24/17 08:00 40 07/24/17 07:17 98 21 97 Facial 40 07/24/17 07:15 Bi-pap 40 07/24/17 07:15 97 Bi-pap 40 07/24/17 06:00 98.1 102 20 135/87 95 Bi-pap 50 07/24/17 05:31 87 22 98 Facial 50 07/24/17 04:00 97 07/24/17 04:00 50 07/24/17 04:00 98.1 102 20 135/87 95 Bi-pap 50 07/24/17 03:57 98 21 96 Facial 50 07/24/17 01:43 101 21 97 Facial 50 07/24/17 00:00 104 07/24/17 00:00 97.3 98 20 126/62 97 Bi-pap 50 07/23/17 23:44 94 20 96 Facial 50 07/23/17 20:40 113 24 97 Facial 50 07/23/17 20:00 108 07/23/17 20:00 97.5 97 20 125/73 99 Bi-pap 50 07/23/17 20:00 50 07/23/17 19:30 Bi-pap 50 07/23/17 19:30 97 Bi-pap 50 07/23/17 17:03 103 20 96 Facial 50 07/23/17 16:37 50 07/23/17 16:00 97.5 106 22 139/89 99 Bi-pap 50 07/23/17 16:00 92 07/23/17 14:58 100 20 95 Facial 50 07/23/17 12:48 102 23 97 Facial 50 Height (Feet): 5 Height (Inches): 5.00 Weight (Pounds): 250 HEENT: anicteric Respiratory/Chest: normal breath sounds Cardiovascular: regular rhythm Abdomen: no mass Laboratory Tests Test 07/24/17 05:10 07/24/17 07:29 White Blood Count 8.7 K/UL (4.8-10.8) Red Blood Count 3.29 M/UL (4.20-5.40) L Hemoglobin 10.2 G/DL (12.0-16.0) L Hematocrit 33.4 % (37.0-47.0) L Mean Corpuscular Volume 102 FL (80-99) H Mean Corpuscular Hemoglobin 31.0 PG (27.0-31.0) Mean Corpuscular Hemoglobin Concent 30.5 G/DL (32.0-36.0) L Red Cell Distribution Width 15.6 % (11.6-14.8) H Platelet Count 158 K/UL (150-450) Mean Platelet Volume 8.0 FL (6.5-10.1) Neutrophils (%) (Auto) 76.7 % (45.0-75.0) H Lymphocytes (%) (Auto) 15.2 % (20.0-45.0) L Monocytes (%) (Auto) 6.0 % (1.0-10.0) Eosinophils (%) (Auto) 1.0 % (0.0-3.0) Basophils (%) (Auto) 1.1 % (0.0-2.0) Sodium Level 145 MMOL/L (136-145) Potassium Level 3.6 MMOL/L (3.5-5.1) Chloride Level 106 MMOL/L (98-107) Carbon Dioxide Level 36 MMOL/L (21-32) H Anion Gap 3 mmol/L (5-15) L Blood Urea Nitrogen 12 mg/dL (7-18) Creatinine 0.8 MG/DL (0.55-1.30) Estimat Glomerular Filtration Rate > 60 mL/min (>60) Glucose Level 102 MG/DL (74-106) Calcium Level 8.8 MG/DL (8.5-10.1) Phosphorus Level 3.0 MG/DL (2.5-4.9) Magnesium Level 1.8 MG/DL (1.8-2.4) Total Bilirubin 0.2 MG/DL (0.2-1.0) Aspartate Amino Transf (AST/SGOT) 10 U/L (15-37) L Alanine Aminotransferase (ALT/SGPT) 14 U/L (12-78) Alkaline Phosphatase 43 U/L (46-116) L Total Protein 6.4 G/DL (6.4-8.2) Albumin 2.7 G/DL (3.4-5.0) L Globulin 3.7 g/dL Albumin/Globulin Ratio 0.7 (1.0-2.7) L Arterial Blood pH 7.290 (7.350-7.450) Arterial Blood Partial Pressure CO2 73.0 mmHg (35.0-45.0) *H Arterial Blood Partial Pressure O2 104.1 mmHg (75.0-100.0) H Arterial Blood HCO3 34.8 mmol/L (22.0-26.0) H Arterial Blood Oxygen Saturation 97.2 % (92.0-98.0) Arterial Blood Base Excess 6.4 Lalito Test Positive Current Medications Medications (Trade) Dose Ordered Sig/Selvin Route PRN Reason Start Time Stop Time Status Last Admin Dose Admin Acetaminophen (Tylenol) 650 mg Q4H PRN ORAL Mild Pain/Temp > 100.5 07/22/17 11:15 08/21/17 11:14 07/24/17 02:19 Acetazolamide (Diamox) 250 mg TWICE A DAY ORAL 07/16/17 18:00 2/6/18 17:59 07/24/17 09:04 Amlodipine Besylate (Norvasc) 5 mg DAILY ORAL 07/16/17 09:00 08/09/17 09:44 07/24/17 09:04 Clonidine HCl (Catapres) 0.1 mg EVERY 6 HOURS PRN ORAL For High Blood Pressure>160 07/15/17 12:00 08/14/17 07:44 Docusate Sodium (Colace) 100 mg TWICE A DAY ORAL 07/15/17 18:00 08/09/17 09:44 07/24/17 09:04 Escitalopram Oxalate (Lexapro) 20 mg DAILY ORAL 07/16/17 09:00 08/14/17 08:59 07/24/17 09:04 Gabapentin (Neurontin) 300 mg THREE TIMES A DAY ORAL 07/21/17 18:00 08/20/17 17:59 07/24/17 09:04 Heparin Sodium (Porcine) (Heparin 5000 units/ml) 5,000 units EVERY 12 HOURS SUBQ 07/15/17 21:00 08/09/17 09:44 07/24/17 09:05 Levetiracetam (Keppra) 500 mg Q12HR ORAL 07/15/17 21:00 08/09/17 09:44 07/24/17 09:04 Quetiapine Fumarate (SEROquel) 25 mg BEDTIME ORAL 07/18/17 21:00 08/17/17 20:59 07/23/17 21:30 Theophylline (Paresh-Dur) 200 mg EVERY 12 HOURS ORAL 07/22/17 09:00 08/21/17 08:59 07/24/17 09:04 JAYY HARMAN M.D. Jul 24, 2017 12:08
--- NOTE | 2017-07-24 23:44 | General Progress Note ---
Assessment/Plan Status: stable Assessment/Plan ASSESSMENT AND RECS: #. Leukocytosis related to underlying steroids. --> Resolved as of today. --> Wbc count WNL #. Anemia secondary to chronic disease. Continue to closely monitor. --> anemia w/u has been ordered and reviewed, no aid noted --> Blood transfusion not required today. Has been stable >7 #. Shortness of breath, related to underlying asthma exacerbation. On Levaquin for bacterial bronchitis. Continue per ID service. --> on bipap, pulm following #. Asthma exacerbation with infiltrates noted. Continue Tamiflu. #. Elevated bicarb, potentially related to acidosis, retention of CO2. #. Hypoglycemia, potentially related to steroids. #. Seizure disorder, currently stable #. Malnutrition Cdiff negative, bcx neg x4 Subjective Date patient seen: Jul 23, 2017 Constitutional: Denies: no symptoms, chills, diaphoresis, fever, malaise, weakness, other HEENT: Denies: no symptoms, eye pain, blurred vision, tearing, double vision, ear pain, ear discharge, nose pain, nose congestion, throat pain, throat swelling, mouth pain, mouth swelling, other Cardiovascular: Denies: no symptoms, chest pain, edema, irregular heart rate, lightheadedness, palpitations, syncope, other Respiratory: Denies: no symptoms, cough, orthopnea, shortness of breath, SOB with excertion, SOB at rest, sputum, stridor, wheezing, other Gastrointestinal/Abdominal: Denies: no symptoms, abdomen distended, abdominal pain, black stools, tarry stools, blood in stool, constipated, diarrhea, difficulty swallowing, nausea, poor appetite, poor fluid intake, rectal bleeding , vomiting, other Genitourinary: Denies: no symptoms, burning, discharge, frequency, flank pain, hematuria, incontinence, pain, urgency, other Allergies: Coded Allergies: No Known Allergies (Unverified , 02/19/17) Subjective On bipap. No fever or chills. Vitals are stable. Objective Last 24 Hour Vital Signs Date Time Temp Pulse Resp B/P (MAP) Pulse Ox O2 Delivery O2 Flow Rate FiO2 07/24/17 23:16 89 20 98 Facial 40 07/24/17 21:30 92 38 97 Facial 40 07/24/17 20:04 Bi-pap 40 07/24/17 20:04 96 Bi-pap 40 07/24/17 20:04 98 26 96 Facial 40 07/24/17 20:00 40 07/24/17 20:00 98.4 99 30 153/77 96 Bi-pap 40 07/24/17 20:00 103 07/24/17 16:55 98 23 98 Facial 40 07/24/17 16:00 97.3 94 19 141/68 96 Bi-pap 50 07/24/17 16:00 92 07/24/17 16:00 40 07/24/17 15:29 95 25 98 Facial 40 07/24/17 12:42 92 28 98 Facial 40 07/24/17 12:00 40 07/24/17 12:00 97.3 102 24 153/79 97 Bi-pap 50 07/24/17 11:44 110 07/24/17 11:28 93 21 99 Facial 40 07/24/17 09:04 92 145/74 07/24/17 08:38 92 22 98 Facial 40 07/24/17 08:10 90 07/24/17 08:00 97.7 102 21 145/74 100 Bi-pap 50 07/24/17 08:00 40 07/24/17 07:17 98 21 97 Facial 40 07/24/17 07:15 Bi-pap 40 07/24/17 07:15 97 Bi-pap 40 07/24/17 06:00 98.1 102 20 135/87 95 Bi-pap 50 07/24/17 05:31 87 22 98 Facial 50 07/24/17 04:00 97 07/24/17 04:00 50 07/24/17 04:00 98.1 102 20 135/87 95 Bi-pap 50 07/24/17 03:57 98 21 96 Facial 50 07/24/17 01:43 101 21 97 Facial 50 07/24/17 00:00 104 07/24/17 00:00 97.3 98 20 126/62 97 Bi-pap 50 07/23/17 23:44 94 20 96 Facial 50 Intake and Output 07/23/17 07/24/17 19:00 07:00 Intake Total 500 ml 450 ml Output Total 1 ml 501 ml Balance 499 ml -51 ml Intake Oral 500 ml 450 ml Output Urine Total 500 ml Stool Total 1 ml 1 ml # Voids 3 3 # Bowel Movements 1 Laboratory Tests 07/24/17 05:10: White Blood Count 8.7, Red Blood Count 3.29L, Hemoglobin 10.2L, Hematocrit 33.4L , Mean Corpuscular Volume 102H, Mean Corpuscular Hemoglobin 31.0, Mean Corpuscular Hemoglobin Concent 30.5L, Red Cell Distribution Width 15.6H, Platelet Count 158, Mean Platelet Volume 8.0, Neutrophils (%) (Auto) 76.7H, Lymphocytes (%) (Auto) 15.2L, Monocytes (%) (Auto) 6.0, Eosinophils (%) (Auto) 1.0, Basophils (%) (Auto) 1.1, Sodium Level 145, Potassium Level 3.6, Chloride Level 106, Carbon Dioxide Level 36H, Anion Gap 3L, Blood Urea Nitrogen 12, Creatinine 0.8, Estimat Glomerular Filtration Rate > 60, Glucose Level 102, Calcium Level 8.8, Phosphorus Level 3.0, Magnesium Level 1.8, Total Bilirubin 0.2, Aspartate Amino Transf (AST/SGOT) 10L, Alanine Aminotransferase (ALT/SGPT) 14, Alkaline Phosphatase 43L, Total Protein 6.4, Albumin 2.7L, Globulin 3.7, Albumin/Globulin Ratio 0.7L 07/24/17 07:29: Arterial Blood pH 7.290L, Arterial Blood Partial Pressure CO2 73.0*H, Arterial Blood Partial Pressure O2 104.1H, Arterial Blood HCO3 34.8H, Arterial Blood Oxygen Saturation 97.2, Arterial Blood Base Excess 6.4, Lalito Test Positive Height (Feet): 5 Height (Inches): 5.00 Weight (Pounds): 250 General Appearance: no apparent distress EENT: PERRL/EOMI Neck: normal alignment Cardiovascular: normal rate, regular rhythm Respiratory/Chest: normal breath sounds Uche Leon Jul 24, 2017 23:44
[2017-07-25] VITALS: BP 130/69
--- NOTE | 2017-07-25 02:15 | General Progress Note ---
Assessment/Plan Status: unchanged Assessment/Plan ASSESSMENT AND RECS: #. Leukocytosis related to underlying steroids. --> Resolved as of today. --> Wbc count WNL #. Anemia secondary to chronic disease. Continue to closely monitor. --> anemia w/u has been ordered and reviewed, no aid noted --> Blood transfusion not required today. Has been stable >7 #. Shortness of breath, related to underlying asthma exacerbation. On Levaquin for bacterial bronchitis. Continue per ID service. --> on bipap, pulm following #. Asthma exacerbation with infiltrates noted. Continue Tamiflu. #. Elevated bicarb, potentially related to acidosis, retention of CO2. #. Hypoglycemia, potentially related to steroids. #. Seizure disorder, currently stable #. Malnutrition Cdiff negative, bcx neg x4 Subjective Date patient seen: Jul 24, 2017 Constitutional: Denies: no symptoms, chills, diaphoresis, fever, malaise, weakness, other HEENT: Denies: no symptoms, eye pain, blurred vision, tearing, double vision, ear pain, ear discharge, nose pain, nose congestion, throat pain, throat swelling, mouth pain, mouth swelling, other Cardiovascular: Denies: no symptoms, chest pain, edema, irregular heart rate, lightheadedness, palpitations, syncope, other Respiratory: Denies: no symptoms, cough, orthopnea, shortness of breath, SOB with excertion, SOB at rest, sputum, stridor, wheezing, other Gastrointestinal/Abdominal: Denies: no symptoms, abdomen distended, abdominal pain, black stools, tarry stools, blood in stool, constipated, diarrhea, difficulty swallowing, nausea, poor appetite, poor fluid intake, rectal bleeding , vomiting, other Genitourinary: Denies: no symptoms, burning, discharge, frequency, flank pain, hematuria, incontinence, pain, urgency, other Allergies: Coded Allergies: No Known Allergies (Unverified , 02/19/17) Subjective On bipap. No fever or chills. NAD Objective Last 24 Hour Vital Signs Date Time Temp Pulse Resp B/P (MAP) Pulse Ox O2 Delivery O2 Flow Rate FiO2 07/25/17 01:22 99 20 98 Facial 40 07/25/17 00:39 98.4 07/25/17 00:00 96 07/25/17 00:00 40 07/25/17 00:00 98.0 103 28 130/69 100 Bi-pap 40 07/24/17 23:16 89 20 98 Facial 40 07/24/17 21:30 92 38 97 Facial 40 07/24/17 20:04 Bi-pap 40 07/24/17 20:04 96 Bi-pap 40 07/24/17 20:04 98 26 96 Facial 40 07/24/17 20:00 40 07/24/17 20:00 98.4 99 30 153/77 96 Bi-pap 40 07/24/17 20:00 103 07/24/17 16:55 98 23 98 Facial 40 07/24/17 16:00 97.3 94 19 141/68 96 Bi-pap 50 07/24/17 16:00 92 07/24/17 16:00 40 07/24/17 15:29 95 25 98 Facial 40 07/24/17 12:42 92 28 98 Facial 40 07/24/17 12:00 40 07/24/17 12:00 97.3 102 24 153/79 97 Bi-pap 50 07/24/17 11:44 110 07/24/17 11:28 93 21 99 Facial 40 07/24/17 09:04 92 145/74 07/24/17 08:38 92 22 98 Facial 40 07/24/17 08:10 90 07/24/17 08:00 97.7 102 21 145/74 100 Bi-pap 50 07/24/17 08:00 40 07/24/17 07:17 98 21 97 Facial 40 07/24/17 07:15 Bi-pap 40 07/24/17 07:15 97 Bi-pap 40 07/24/17 06:00 98.1 102 20 135/87 95 Bi-pap 50 07/24/17 05:31 87 22 98 Facial 50 07/24/17 04:00 97 07/24/17 04:00 50 07/24/17 04:00 98.1 102 20 135/87 95 Bi-pap 50 07/24/17 03:57 98 21 96 Facial 50 Intake and Output 07/24/17 07/25/17 19:00 07:00 Intake Total 600 ml 450 ml Output Total 800 ml Balance -200 ml 450 ml Intake Oral 600 ml 450 ml Output Urine Total 800 ml # Voids 3 4 # Bowel Movements 2 Laboratory Tests 07/24/17 05:10: White Blood Count 8.7, Red Blood Count 3.29L, Hemoglobin 10.2L, Hematocrit 33.4L , Mean Corpuscular Volume 102H, Mean Corpuscular Hemoglobin 31.0, Mean Corpuscular Hemoglobin Concent 30.5L, Red Cell Distribution Width 15.6H, Platelet Count 158, Mean Platelet Volume 8.0, Neutrophils (%) (Auto) 76.7H, Lymphocytes (%) (Auto) 15.2L, Monocytes (%) (Auto) 6.0, Eosinophils (%) (Auto) 1.0, Basophils (%) (Auto) 1.1, Sodium Level 145, Potassium Level 3.6, Chloride Level 106, Carbon Dioxide Level 36H, Anion Gap 3L, Blood Urea Nitrogen 12, Creatinine 0.8, Estimat Glomerular Filtration Rate > 60, Glucose Level 102, Calcium Level 8.8, Phosphorus Level 3.0, Magnesium Level 1.8, Total Bilirubin 0.2, Aspartate Amino Transf (AST/SGOT) 10L, Alanine Aminotransferase (ALT/SGPT) 14, Alkaline Phosphatase 43L, Total Protein 6.4, Albumin 2.7L, Globulin 3.7, Albumin/Globulin Ratio 0.7L 07/24/17 07:29: Arterial Blood pH 7.290L, Arterial Blood Partial Pressure CO2 73.0*H, Arterial Blood Partial Pressure O2 104.1H, Arterial Blood HCO3 34.8H, Arterial Blood Oxygen Saturation 97.2, Arterial Blood Base Excess 6.4, Lalito Test Positive Height (Feet): 5 Height (Inches): 5.00 Weight (Pounds): 250 General Appearance: no apparent distress Uche Leon Jul 25, 2017 02:15
[2017-07-25 04:00] VITALS: BP 118/81
[2017-07-25 08:00] VITALS: BP 129/93
[2017-07-25] MEDS: Theophylline ER 100mg ORAL SCH ×2 (09:16→20:37)
[2017-07-25] MEDS: Docusate 100mg cap ORAL SCH ×2 (09:16→17:13)
[2017-07-25] MEDS: Heparin 5000 units/ml inj SUBQ SCH ×2 (09:19→20:44)
[2017-07-25] MEDS: traMADol 50mg tab ORAL PRN ×2 (10:21→20:39)
[2017-07-25 12:00] VITALS: BP 128/83
--- NOTE | 2017-07-25 12:45 | Pulmonology Progress Note ---
Assessment/Plan Problems: (1) Acute hypercapnic respiratory failure (2) Asthma exacerbation (3) Aspiration pneumonia (4) Ventriculo-peritoneal shunt status Assessment/Plan on bipap, can't come off , refusing intubation, refusing trach wbc normal continue abx, check cultures check electrolytes. try full face mask Subjective ROS Limited/Unobtainable: No Constitutional: Reports: no symptoms HEENT: Repors: no symptoms Respiratory: Reports: no symptoms Allergies: Coded Allergies: No Known Allergies (Unverified , 02/19/17) Objective Last 24 Hour Vital Signs Date Time Temp Pulse Resp B/P (MAP) Pulse Ox O2 Delivery O2 Flow Rate FiO2 07/25/17 12:00 98.7 104 20 128/83 99 Bi-pap 40 07/25/17 11:06 92 20 98 Facial 40 07/25/17 09:35 94 28 98 Facial 40 07/25/17 09:15 97 129/93 07/25/17 08:00 97.8 97 24 129/93 99 Bi-pap 40 07/25/17 08:00 40 07/25/17 07:52 100 07/25/17 07:45 Bi-pap 40 07/25/17 07:44 97 Bi-pap 40 07/25/17 07:43 94 20 97 Facial 40 07/25/17 05:22 91 20 97 Facial 40 07/25/17 04:58 98.4 07/25/17 04:00 100 07/25/17 04:00 98.1 76 22 118/81 96 Bi-pap 40 07/25/17 04:00 40 07/25/17 03:42 94 20 98 Facial 40 07/25/17 01:22 99 20 98 Facial 40 07/25/17 00:00 96 07/25/17 00:00 40 07/25/17 00:00 98.0 103 28 130/69 100 Bi-pap 40 07/24/17 23:16 89 20 98 Facial 40 07/24/17 21:30 92 38 97 Facial 40 07/24/17 20:04 Bi-pap 40 07/24/17 20:04 96 Bi-pap 40 07/24/17 20:04 98 26 96 Facial 40 07/24/17 20:00 40 07/24/17 20:00 98.4 99 30 153/77 96 Bi-pap 40 07/24/17 20:00 103 07/24/17 16:55 98 23 98 Facial 40 07/24/17 16:00 97.3 94 19 141/68 96 Bi-pap 50 07/24/17 16:00 92 07/24/17 16:00 40 07/24/17 15:29 95 25 98 Facial 40 Intake and Output 07/24/17 07/25/17 19:00 07:00 Intake Total 600 ml 550 ml Output Total 800 ml 200 ml Balance -200 ml 350 ml Intake Oral 600 ml 550 ml Output Urine Total 800 ml 200 ml # Voids 3 4 # Bowel Movements 4 General Appearance: WD/WN HEENT: normocephalic, atraumatic Respiratory/Chest: chest wall non-tender, lungs clear Breasts: no masses Cardiovascular: normal peripheral pulses, regular rhythm Abdomen: soft, non tender, no scars Genitourinary: normal external genitalia Extremities: no clubbing Skin: no rash Current Medications Medications (Trade) Dose Ordered Sig/Selvin Route PRN Reason Start Time Stop Time Status Last Admin Dose Admin Acetaminophen (Tylenol) 650 mg Q4H PRN ORAL Mild Pain/Temp > 100.5 07/22/17 11:15 08/21/17 11:14 07/25/17 03:59 Acetazolamide (Diamox) 250 mg TWICE A DAY ORAL 07/16/17 18:00 08/15/17 17:59 07/25/17 09:15 Amlodipine Besylate (Norvasc) 5 mg DAILY ORAL 07/16/17 09:00 08/09/17 09:44 07/25/17 09:15 Clonidine HCl (Catapres) 0.1 mg EVERY 6 HOURS PRN ORAL For High Blood Pressure>160 07/15/17 12:00 08/14/17 07:44 Docusate Sodium (Colace) 100 mg TWICE A DAY ORAL 07/15/17 18:00 08/09/17 09:44 07/25/17 09:16 Escitalopram Oxalate (Lexapro) 20 mg DAILY ORAL 07/16/17 09:00 08/14/17 08:59 07/25/17 09:15 Gabapentin (Neurontin) 300 mg THREE TIMES A DAY ORAL 07/21/17 18:00 08/20/17 17:59 07/25/17 12:41 Heparin Sodium (Porcine) (Heparin 5000 units/ml) 5,000 units EVERY 12 HOURS SUBQ 07/15/17 21:00 08/09/17 09:44 07/25/17 09:19 Levetiracetam (Keppra) 500 mg Q12HR ORAL 07/15/17 21:00 08/09/17 09:44 07/25/17 09:16 Quetiapine Fumarate (SEROquel) 25 mg BEDTIME ORAL 07/18/17 21:00 08/17/17 20:59 07/24/17 20:40 Theophylline (Paresh-Dur) 200 mg EVERY 12 HOURS ORAL 07/22/17 09:00 08/21/17 08:59 07/25/17 09:16 Tramadol HCl (Ultram) 50 mg Q6H PRN ORAL Moderate Pain (Pain Scale 4-6) 07/25/17 09:00 08/01/17 08:59 07/25/17 10:21 CRISTINA BRAMBILA Jul 25, 2017 12:45
--- NOTE | 2017-07-25 12:58 | Infectious Diseases Prog Note ---
Assessment/Plan Assessment/Plan A: Asthma exacerbation- r/o Influenza, r/o bacterial bronchitis-possible PNA-; s/p Rx r/o fungal PNA- possibly ANNETTE, ?obesity hypoventilation syndrome contributing BiPAP on/off , C02 retention -CXR 07/24Cardiomegaly with persistent bilateral perihilar hazy opacities, slightly decreased on the right. -CXR: Bilateral diffuse infiltrates versus edema -sp cx normal tristen -HIV 07/11 ab neg, CrAg neg Leukocytosis, SP -Cdiff 07/17 neg -Bcx Neg x4 -influenza test ordered, never done- treated empirically Plan: - Continue to monitor off abx -07/19 SP Levaquin #5 -07/17 SP Zosyn #7 -07/15 SP Tamiflu #5/5 -2 SP Levaquin #3 -Monitor CBC/BMP, temperatures; trend WBC- if continues to worsen will repeat cultures -aspiration precautions -f/u cocci ab Subjective Allergies: Coded Allergies: No Known Allergies (Unverified , 02/19/17) Subjective on BiPAP afebrile Objective Vital Signs Last 24 Hour Vital Signs Date Time Temp Pulse Resp B/P (MAP) Pulse Ox O2 Delivery O2 Flow Rate FiO2 07/25/17 12:00 98.7 104 20 128/83 99 Bi-pap 40 07/25/17 11:06 92 20 98 Facial 40 07/25/17 09:35 94 28 98 Facial 40 07/25/17 09:15 97 129/93 07/25/17 08:00 97.8 97 24 129/93 99 Bi-pap 40 07/25/17 08:00 40 07/25/17 07:52 100 07/25/17 07:45 Bi-pap 40 07/25/17 07:44 97 Bi-pap 40 07/25/17 07:43 94 20 97 Facial 40 07/25/17 05:22 91 20 97 Facial 40 07/25/17 04:58 98.4 07/25/17 04:00 100 07/25/17 04:00 98.1 76 22 118/81 96 Bi-pap 40 07/25/17 04:00 40 07/25/17 03:42 94 20 98 Facial 40 07/25/17 01:22 99 20 98 Facial 40 07/25/17 00:00 96 07/25/17 00:00 40 07/25/17 00:00 98.0 103 28 130/69 100 Bi-pap 40 07/24/17 23:16 89 20 98 Facial 40 07/24/17 21:30 92 38 97 Facial 40 07/24/17 20:04 Bi-pap 40 07/24/17 20:04 96 Bi-pap 40 07/24/17 20:04 98 26 96 Facial 40 07/24/17 20:00 40 07/24/17 20:00 98.4 99 30 153/77 96 Bi-pap 40 07/24/17 20:00 103 07/24/17 16:55 98 23 98 Facial 40 07/24/17 16:00 97.3 94 19 141/68 96 Bi-pap 50 07/24/17 16:00 92 07/24/17 16:00 40 07/24/17 15:29 95 25 98 Facial 40 Height (Feet): 5 Height (Inches): 5.00 Weight (Pounds): 250 Respiratory/Chest: no respiratory distress Cardiovascular: regular rhythm Abdomen: no organomegaly Current Medications Medications (Trade) Dose Ordered Sig/Selvin Route PRN Reason Start Time Stop Time Status Last Admin Dose Admin Acetaminophen (Tylenol) 650 mg Q4H PRN ORAL Mild Pain/Temp > 100.5 07/22/17 11:15 08/21/17 11:14 07/25/17 03:59 Acetazolamide (Diamox) 250 mg TWICE A DAY ORAL 07/16/17 18:00 08/15/17 17:59 07/25/17 09:15 Amlodipine Besylate (Norvasc) 5 mg DAILY ORAL 07/16/17 09:00 08/09/17 09:44 07/25/17 09:15 Clonidine HCl (Catapres) 0.1 mg EVERY 6 HOURS PRN ORAL For High Blood Pressure>160 07/15/17 12:00 08/14/17 07:44 Docusate Sodium (Colace) 100 mg TWICE A DAY ORAL 07/15/17 18:00 08/09/17 09:44 07/25/17 09:16 Escitalopram Oxalate (Lexapro) 20 mg DAILY ORAL 07/16/17 09:00 08/14/17 08:59 07/25/17 09:15 Gabapentin (Neurontin) 300 mg THREE TIMES A DAY ORAL 07/21/17 18:00 08/20/17 17:59 07/25/17 12:41 Heparin Sodium (Porcine) (Heparin 5000 units/ml) 5,000 units EVERY 12 HOURS SUBQ 07/15/17 21:00 08/09/17 09:44 07/25/17 09:19 Levetiracetam (Keppra) 500 mg Q12HR ORAL 07/15/17 21:00 08/09/17 09:44 07/25/17 09:16 Quetiapine Fumarate (SEROquel) 25 mg BEDTIME ORAL 07/18/17 21:00 08/17/17 20:59 07/24/17 20:40 Theophylline (Paresh-Dur) 200 mg EVERY 12 HOURS ORAL 07/22/17 09:00 08/21/17 08:59 07/25/17 09:16 Tramadol HCl (Ultram) 50 mg Q6H PRN ORAL Moderate Pain (Pain Scale 4-6) 07/25/17 09:00 08/01/17 08:59 07/25/17 10:21 JAYY HARMAN M.D. Jul 25, 2017 12:58
[2017-07-25 16:00] VITALS: BP 119/57
[2017-07-25 20:00] VITALS: BP 105/77
--- NOTE | 2017-07-25 22:09 | General Progress Note ---
Assessment/Plan Assessment/Plan ASSESSMENT AND RECS: #. Leukocytosis related to underlying steroids. --> Resolved as of today. --> Wbc count WNL #. Anemia secondary to chronic disease. --> Continue to closely monitor. --> anemia w/u has been ordered and reviewed, no aid noted --> Blood transfusion not required today. Has been stable >7 #. Shortness of breath, related to underlying asthma exacerbation. --> On Levaquin for bacterial bronchitis. Continue per ID service. --> on bipap, pulm following #. Asthma exacerbation with infiltrates noted. Continue Tamiflu. #. Elevated bicarb, potentially related to acidosis, retention of CO2. #. Hypoglycemia, potentially related to steroids. #. Seizure disorder, currently stable #. Malnutrition Cdiff negative, bcx neg x4 Subjective Date patient seen: Jul 25, 2017 Constitutional: Denies: no symptoms, chills, diaphoresis, fever, malaise, weakness, other HEENT: Denies: no symptoms, eye pain, blurred vision, tearing, double vision, ear pain, ear discharge, nose pain, nose congestion, throat pain, throat swelling, mouth pain, mouth swelling, other Cardiovascular: Denies: no symptoms, chest pain, edema, irregular heart rate, lightheadedness, palpitations, syncope, other Respiratory: Denies: no symptoms, cough, orthopnea, shortness of breath, SOB with excertion, SOB at rest, sputum, stridor, wheezing, other Gastrointestinal/Abdominal: Denies: no symptoms, abdomen distended, abdominal pain, black stools, tarry stools, blood in stool, constipated, diarrhea, difficulty swallowing, nausea, poor appetite, poor fluid intake, rectal bleeding , vomiting, other Allergies: Coded Allergies: No Known Allergies (Unverified , 02/19/17) Subjective On bipap. Tachycardic. No major events. Objective Last 24 Hour Vital Signs Date Time Temp Pulse Resp B/P (MAP) Pulse Ox O2 Delivery O2 Flow Rate FiO2 07/25/17 21:41 99 Bi-pap 40 07/25/17 21:41 Bi-pap 07/25/17 21:39 107 20 99 Facial 40 07/25/17 20:00 40 07/25/17 17:00 98 20 99 Facial 40 07/25/17 16:00 97.5 96 23 119/57 99 Bi-pap 40 07/25/17 15:47 101 07/25/17 15:46 40 07/25/17 15:09 92 21 98 Facial 40 07/25/17 13:12 95 26 98 Facial 40 07/25/17 12:00 98.7 104 20 128/83 99 Bi-pap 40 07/25/17 12:00 40 07/25/17 12:00 95 07/25/17 11:06 92 20 98 Facial 40 07/25/17 09:35 94 28 98 Facial 40 07/25/17 09:15 97 129/93 07/25/17 08:00 97.8 97 24 129/93 99 Bi-pap 40 07/25/17 08:00 40 07/25/17 07:52 100 07/25/17 07:45 Bi-pap 40 07/25/17 07:44 97 Bi-pap 40 07/25/17 07:43 94 20 97 Facial 40 07/25/17 05:22 91 20 97 Facial 40 07/25/17 04:58 98.4 07/25/17 04:00 100 07/25/17 04:00 98.1 76 22 118/81 96 Bi-pap 40 07/25/17 04:00 40 07/25/17 03:42 94 20 98 Facial 40 07/25/17 01:22 99 20 98 Facial 40 07/25/17 00:00 96 07/25/17 00:00 40 07/25/17 00:00 98.0 103 28 130/69 100 Bi-pap 40 07/24/17 23:16 89 20 98 Facial 40 Intake and Output 07/24/17 07/25/17 19:00 07:00 Intake Total 600 ml 550 ml Output Total 800 ml 200 ml Balance -200 ml 350 ml Intake Oral 600 ml 550 ml Output Urine Total 800 ml 200 ml # Voids 3 4 # Bowel Movements 4 Height (Feet): 5 Height (Inches): 5.00 Weight (Pounds): 250 General Appearance: no apparent distress EENT: normal ENT inspection Neck: supple Cardiovascular: tachycardia Skin: warm/dry Uche Leon Jul 25, 2017 22:09
[2017-07-26] VITALS: BP 115/75
[2017-07-26 04:00] VITALS: BP 153/69
[2017-07-26 08:00] VITALS: BP 127/67
[2017-07-26] MEDS: Theophylline ER 100mg ORAL SCH ×2 (08:45→20:34)
[2017-07-26] MEDS: Docusate 100mg cap ORAL SCH ×2 (08:45→17:38)
[2017-07-26] MEDS: Heparin 5000 units/ml inj SUBQ SCH ×2 (08:46→20:35)
[2017-07-26 12:00] VITALS: BP 145/77
--- NOTE | 2017-07-26 12:46 | Pulmonology Progress Note ---
Assessment/Plan Problems: (1) Acute hypercapnic respiratory failure (2) Asthma exacerbation (3) Aspiration pneumonia (4) Ventriculo-peritoneal shunt status Assessment/Plan on bipap, can't come off , refusing intubation, refusing trach wbc normal continue abx, check cultures check electrolytes. try full face mask will talk to about the trach. Subjective ROS Limited/Unobtainable: No Constitutional: Reports: no symptoms HEENT: Repors: no symptoms Respiratory: Reports: no symptoms Allergies: Coded Allergies: No Known Allergies (Unverified , 02/19/17) Objective Last 24 Hour Vital Signs Date Time Temp Pulse Resp B/P (MAP) Pulse Ox O2 Delivery O2 Flow Rate FiO2 07/26/17 09:15 100 21 99 Facial 40 07/26/17 08:45 91 127/67 07/26/17 08:00 40 07/26/17 08:00 97.8 91 18 127/67 99 Bi-pap 40 07/26/17 08:00 96 07/26/17 07:30 Bi-pap 07/26/17 07:30 99 Bi-pap 40 07/26/17 07:30 94 99 Facial 40 07/26/17 05:09 102 22 98 Facial 40 07/26/17 04:00 103 07/26/17 04:00 40 07/26/17 04:00 98.0 98 22 153/69 98 Bi-pap 40 07/26/17 03:10 98 20 99 Facial 40 07/26/17 00:56 102 22 99 Facial 40 07/26/17 00:00 95 07/26/17 00:00 98.2 110 26 115/75 99 Bi-pap 40 07/26/17 00:00 40 07/25/17 23:11 92 20 99 Facial 40 07/25/17 21:41 99 Bi-pap 40 07/25/17 21:41 Bi-pap 07/25/17 21:39 107 20 99 Facial 40 07/25/17 20:00 97 07/25/17 20:00 98.0 98 24 105/77 99 Bi-pap 40 07/25/17 20:00 40 07/25/17 17:00 98 20 99 Facial 40 07/25/17 16:00 97.5 96 23 119/57 99 Bi-pap 40 07/25/17 15:47 101 07/25/17 15:46 40 07/25/17 15:09 92 21 98 Facial 40 07/25/17 13:12 95 26 98 Facial 40 Intake and Output 07/25/17 07/26/17 19:00 07:00 Intake Total 120 ml 450 ml Output Total 250 ml Balance -130 ml 450 ml Intake Oral 120 ml 450 ml Output Urine Total 250 ml # Voids 3 # Bowel Movements 3 General Appearance: WD/WN, no acute distress HEENT: atraumatic Respiratory/Chest: chest wall non-tender, lungs clear Breasts: no masses Cardiovascular: normal peripheral pulses, regular rhythm Abdomen: normal bowel sounds, soft, non tender Genitourinary: normal external genitalia Current Medications Medications (Trade) Dose Ordered Sig/Selvin Route PRN Reason Start Time Stop Time Status Last Admin Dose Admin Acetaminophen (Tylenol) 650 mg Q4H PRN ORAL Mild Pain/Temp > 100.5 07/22/17 11:15 08/21/17 11:14 07/25/17 03:59 Acetazolamide (Diamox) 250 mg TWICE A DAY ORAL 07/16/17 18:00 08/15/17 17:59 07/26/17 08:45 Amlodipine Besylate (Norvasc) 5 mg DAILY ORAL 07/16/17 09:00 08/09/17 09:44 07/26/17 08:45 Clonidine HCl (Catapres) 0.1 mg EVERY 6 HOURS PRN ORAL For High Blood Pressure>160 07/15/17 12:00 08/14/17 07:44 Docusate Sodium (Colace) 100 mg TWICE A DAY ORAL 07/15/17 18:00 08/09/17 09:44 07/26/17 08:45 Escitalopram Oxalate (Lexapro) 20 mg DAILY ORAL 07/16/17 09:00 08/14/17 08:59 07/26/17 08:45 Gabapentin (Neurontin) 300 mg THREE TIMES A DAY ORAL 07/21/17 18:00 08/20/17 17:59 07/26/17 08:45 Heparin Sodium (Porcine) (Heparin 5000 units/ml) 5,000 units EVERY 12 HOURS SUBQ 07/15/17 21:00 08/09/17 09:44 07/26/17 08:46 Levetiracetam (Keppra) 500 mg Q12HR ORAL 07/15/17 21:00 08/09/17 09:44 07/26/17 08:45 Quetiapine Fumarate (SEROquel) 25 mg BEDTIME ORAL 07/18/17 21:00 08/17/17 20:59 07/25/17 20:37 Theophylline (Paresh-Dur) 200 mg EVERY 12 HOURS ORAL 07/22/17 09:00 08/21/17 08:59 07/26/17 08:45 Tramadol HCl (Ultram) 50 mg Q6H PRN ORAL Moderate Pain (Pain Scale 4-6) 07/25/17 09:00 08/01/17 08:59 07/25/17 20:39 CRISTINA BRAMBILA Jul 26, 2017 12:46
--- NOTE | 2017-07-26 12:54 | Infectious Diseases Prog Note ---
Assessment/Plan Assessment/Plan A: Asthma exacerbation- r/o Influenza, r/o bacterial bronchitis-possible PNA-; s/p Rx r/o fungal PNA- possibly ANNETTE, ?obesity hypoventilation syndrome contributing BiPAP on/off , C02 retention -CXR 07/24Cardiomegaly with persistent bilateral perihilar hazy opacities, slightly decreased on the right. -CXR: Bilateral diffuse infiltrates versus edema -sp cx normal tristen -HIV 07/11 ab neg, CrAg neg Leukocytosis, SP -Cdiff 07/17 neg -Bcx Neg x4 -influenza test ordered, never done- treated empirically Plan: - Continue to monitor off abx -07/19 SP Levaquin #5 -07/17 SP Zosyn #7 -07/15 SP Tamiflu #5/5 -2 SP Levaquin #3 -Monitor CBC/BMP, temperatures; trend WBC- if continues to worsen will repeat cultures -aspiration precautions -f/u cocci ab Subjective Constitutional: Denies: no symptoms, fever, chills, fatigue, anorexia, drenching sweats, other Allergies: Coded Allergies: No Known Allergies (Unverified , 02/19/17) Subjective on BiPAP afebrile Objective Vital Signs Last 24 Hour Vital Signs Date Time Temp Pulse Resp B/P (MAP) Pulse Ox O2 Delivery O2 Flow Rate FiO2 07/26/17 09:15 100 21 99 Facial 40 07/26/17 08:45 91 127/67 07/26/17 08:00 40 07/26/17 08:00 97.8 91 18 127/67 99 Bi-pap 40 07/26/17 08:00 96 07/26/17 07:30 Bi-pap 07/26/17 07:30 99 Bi-pap 40 07/26/17 07:30 94 99 Facial 40 07/26/17 05:09 102 22 98 Facial 40 07/26/17 04:00 103 07/26/17 04:00 40 07/26/17 04:00 98.0 98 22 153/69 98 Bi-pap 40 07/26/17 03:10 98 20 99 Facial 40 07/26/17 00:56 102 22 99 Facial 40 07/26/17 00:00 95 07/26/17 00:00 98.2 110 26 115/75 99 Bi-pap 40 07/26/17 00:00 40 07/25/17 23:11 92 20 99 Facial 40 07/25/17 21:41 99 Bi-pap 40 07/25/17 21:41 Bi-pap 07/25/17 21:39 107 20 99 Facial 40 07/25/17 20:00 97 07/25/17 20:00 98.0 98 24 105/77 99 Bi-pap 40 07/25/17 20:00 40 07/25/17 17:00 98 20 99 Facial 40 07/25/17 16:00 97.5 96 23 119/57 99 Bi-pap 40 07/25/17 15:47 101 07/25/17 15:46 40 07/25/17 15:09 92 21 98 Facial 40 07/25/17 13:12 95 26 98 Facial 40 Height (Feet): 5 Height (Inches): 5.00 Weight (Pounds): 250 HEENT: anicteric Respiratory/Chest: normal breath sounds Cardiovascular: regular rhythm Abdomen: no organomegaly Current Medications Medications (Trade) Dose Ordered Sig/Selvin Route PRN Reason Start Time Stop Time Status Last Admin Dose Admin Acetaminophen (Tylenol) 650 mg Q4H PRN ORAL Mild Pain/Temp > 100.5 07/22/17 11:15 08/21/17 11:14 07/25/17 03:59 Acetazolamide (Diamox) 250 mg TWICE A DAY ORAL 07/16/17 18:00 08/15/17 17:59 07/26/17 08:45 Amlodipine Besylate (Norvasc) 5 mg DAILY ORAL 07/16/17 09:00 08/09/17 09:44 07/26/17 08:45 Clonidine HCl (Catapres) 0.1 mg EVERY 6 HOURS PRN ORAL For High Blood Pressure>160 07/15/17 12:00 08/14/17 07:44 Docusate Sodium (Colace) 100 mg TWICE A DAY ORAL 07/15/17 18:00 08/09/17 09:44 07/26/17 08:45 Escitalopram Oxalate (Lexapro) 20 mg DAILY ORAL 07/16/17 09:00 08/14/17 08:59 07/26/17 08:45 Gabapentin (Neurontin) 300 mg THREE TIMES A DAY ORAL 07/21/17 18:00 08/20/17 17:59 07/26/17 08:45 Heparin Sodium (Porcine) (Heparin 5000 units/ml) 5,000 units EVERY 12 HOURS SUBQ 07/15/17 21:00 08/09/17 09:44 07/26/17 08:46 Levetiracetam (Keppra) 500 mg Q12HR ORAL 07/15/17 21:00 08/09/17 09:44 07/26/17 08:45 Quetiapine Fumarate (SEROquel) 25 mg BEDTIME ORAL 07/18/17 21:00 08/17/17 20:59 07/25/17 20:37 Theophylline (Paresh-Dur) 200 mg EVERY 12 HOURS ORAL 07/22/17 09:00 08/21/17 08:59 07/26/17 08:45 Tramadol HCl (Ultram) 50 mg Q6H PRN ORAL Moderate Pain (Pain Scale 4-6) 07/25/17 09:00 08/01/17 08:59 07/25/17 20:39 JAYY HARMAN M.D. Jul 26, 2017 12:54
[2017-07-26 16:00] VITALS: BP 127/87
--- NOTE | 2017-07-26 17:39 | Consultation ---
History of Present Illness General Date patient seen: Jul 26, 2017 Chief Complaint: Dyspnea/Respdistress Referring physician: Della Reason for Consultation: dysnea Present Illness HPI 32F with multiple medical comorbidities as noted below presented with SOB and respiratory distress. Has been cared for by medical and pulmonary team with improvement. Unfortunately has episodes of deterioration and is currently BIPAP dependant. has difficulty when off bipap which makes talking, eating, or breathing difficult. blood gas with significant CO2 retention. At times serious concern for needing intubation. surgery called to evaluate for trach. Allergies: Coded Allergies: No Known Allergies (Unverified , 02/19/17) Medication History Scheduled Albuterol Sulfate* (Proair Hfa*), 1 PUFF INH Q6H Amlodipine Besylate (Norvasc), 5 MG ORAL DAILY Docusate Sodium* (Colace*), 100 MG ORAL TWICE A DAY Escitalopram Oxalate* (Lexapro*), 10 MG ORAL DAILY Gabapentin* (Gabapentin*), 100 MG ORAL THREE TIMES A DAY Levetiracetam (Levetiracetam), 500 MG ORAL Q12HR Levetiracetam (Keppra), 500 MG ORAL EVERY 12 HOURS, (Reported) Lidocaine (Lidoderm), 1 PATCH TOPIC EVERY 12 HOURS Polyethylene Glycol 3350* (Miralax*), 17 GM ORAL DAILY Theophylline (Theodur*), 100 MG ORAL EVERY 12 HOURS Patient History Limited by: medical condition History Provided By: Patient, Medical Record Healthcare decision maker Arnulfo Metz Resuscitation status Full Code Advanced Directive on File No Past Medical/Surgical History Past Medical/Surgical History: (1) Pneumonia (2) Aspiration pneumonia (3) Asthma exacerbation (4) Acute hypercapnic respiratory failure (5) Seizures (6) COPD exacerbation (7) h/o seizure disorder in childhood (8) single episode generalised seizure. Review of Systems All Other Systems: negative except mentioned in HPI Physical Exam General Appearance: mild distress HEENT: mucous membranes moist Neck: normal inspection Respiratory/Chest: respiratory distress, decreased breath sounds, accessory muscle use Cardiovascular/Chest: normal peripheral pulses Abdomen: soft, no organomegaly, no mass Extremities: normal inspection Skin Exam: normal pigmentation Neurologic: alert, oriented x 3, responsive Last 24 Hour Vital Signs Date Time Temp Pulse Resp B/P (MAP) Pulse Ox O2 Delivery O2 Flow Rate FiO2 07/26/17 16:00 97.8 106 18 127/87 97 Bi-pap 40 07/26/17 16:00 40 07/26/17 16:00 113 07/26/17 15:10 102 24 98 Facial 40 07/26/17 13:00 92 27 98 Facial 40 07/26/17 12:00 106 07/26/17 12:00 40 07/26/17 12:00 98.1 95 20 145/77 98 Bi-pap 40 07/26/17 11:00 98 22 98 Facial 40 07/26/17 09:15 100 21 99 Facial 40 07/26/17 08:45 91 127/67 07/26/17 08:00 40 07/26/17 08:00 97.8 91 18 127/67 99 Bi-pap 40 07/26/17 08:00 96 07/26/17 07:30 Bi-pap 07/26/17 07:30 99 Bi-pap 40 07/26/17 07:30 94 99 Facial 40 07/26/17 05:09 102 22 98 Facial 40 07/26/17 04:00 103 07/26/17 04:00 40 07/26/17 04:00 98.0 98 22 153/69 98 Bi-pap 40 07/26/17 03:10 98 20 99 Facial 40 07/26/17 00:56 102 22 99 Facial 40 07/26/17 00:00 95 07/26/17 00:00 98.2 110 26 115/75 99 Bi-pap 40 07/26/17 00:00 40 07/25/17 23:11 92 20 99 Facial 40 07/25/17 21:41 99 Bi-pap 40 07/25/17 21:41 Bi-pap 07/25/17 21:39 107 20 99 Facial 40 07/25/17 20:00 97 07/25/17 20:00 98.0 98 24 105/77 99 Bi-pap 40 07/25/17 20:00 40 Intake and Output 07/25/17 07/26/17 19:00 07:00 Intake Total 120 ml 450 ml Output Total 250 ml Balance -130 ml 450 ml Intake Oral 120 ml 450 ml Output Urine Total 250 ml # Voids 3 # Bowel Movements 3 Height (Feet): 5 Height (Inches): 5.00 Weight (Pounds): 250 Medications Current Medications Medications (Trade) Dose Ordered Sig/Selvin Route PRN Reason Start Time Stop Time Status Last Admin Dose Admin Acetaminophen (Tylenol) 650 mg Q4H PRN ORAL Mild Pain/Temp > 100.5 07/22/17 11:15 08/21/17 11:14 07/25/17 03:59 Acetazolamide (Diamox) 250 mg TWICE A DAY ORAL 07/16/17 18:00 08/15/17 17:59 07/26/17 08:45 Amlodipine Besylate (Norvasc) 5 mg DAILY ORAL 07/16/17 09:00 08/09/17 09:44 07/26/17 08:45 Clonidine HCl (Catapres) 0.1 mg EVERY 6 HOURS PRN ORAL For High Blood Pressure>160 07/15/17 12:00 08/14/17 07:44 Docusate Sodium (Colace) 100 mg TWICE A DAY ORAL 07/15/17 18:00 08/09/17 09:44 07/26/17 08:45 Escitalopram Oxalate (Lexapro) 20 mg DAILY ORAL 07/16/17 09:00 08/14/17 08:59 07/26/17 08:45 Gabapentin (Neurontin) 300 mg THREE TIMES A DAY ORAL 07/21/17 18:00 08/20/17 17:59 07/26/17 13:22 Heparin Sodium (Porcine) (Heparin 5000 units/ml) 5,000 units EVERY 12 HOURS SUBQ 07/15/17 21:00 08/09/17 09:44 07/26/17 08:46 Levetiracetam (Keppra) 500 mg Q12HR ORAL 07/15/17 21:00 08/09/17 09:44 07/26/17 08:45 Quetiapine Fumarate (SEROquel) 25 mg BEDTIME ORAL 07/18/17 21:00 08/17/17 20:59 07/25/17 20:37 Theophylline (Paresh-Dur) 200 mg EVERY 12 HOURS ORAL 07/22/17 09:00 08/21/17 08:59 07/26/17 08:45 Tramadol HCl (Ultram) 50 mg Q6H PRN ORAL Moderate Pain (Pain Scale 4-6) 07/25/17 09:00 08/01/17 08:59 1/16/18 20:39 Assessment/Plan Problem List: (1) Acute hypercapnic respiratory failure Assessment & Plan: SOB, respiratory distress, hypercapnic, BIPAP dependant, serious concerns for intubation at times. discussed care with patient, medical team and pulmonary team. given above trach indicated and recommended. given current condition, history, and quality of life she agreed to trach after discussing risks, benefits and alternatives. this will give her a protected airway and allow her to be on support when necessary. she can talk and eat more comfortable as well. -will plan for trach Monday -NPO -continue current care -consent in chart orders completed. thank you for this consultation. ICD Codes: J96.02 - Acute respiratory failure with hypercapnia SNOMED: [id number] Status: stable [place] Jul 26, 2017 17:39
--- NOTE | 2017-07-26 19:41 | General Progress Note ---
Assessment/Plan Status: unchanged Assessment/Plan ASSESSMENT AND RECS: #. Leukocytosis related to underlying steroids. --> Resolved as of today. --> Wbc count WNL #. Anemia secondary to chronic disease. --> Continue to closely monitor. --> anemia w/u has been ordered and reviewed, no aid noted --> Blood transfusion not required today. Has been stable >7 #. Shortness of breath, related to underlying asthma exacerbation. --> On Levaquin for bacterial bronchitis. Continue per ID service. --> on bipap, pulm following #. Asthma exacerbation with infiltrates noted. Continue Tamiflu. #. Elevated bicarb, potentially related to acidosis, retention of CO2. #. Hypoglycemia, potentially related to steroids. #. Seizure disorder, currently stable #. Malnutrition Cdiff negative, bcx neg x4 Subjective Date patient seen: Jul 26, 2017 Constitutional: Denies: no symptoms, chills, diaphoresis, fever, malaise, weakness, other HEENT: Denies: no symptoms, eye pain, blurred vision, tearing, double vision, ear pain, ear discharge, nose pain, nose congestion, throat pain, throat swelling, mouth pain, mouth swelling, other Cardiovascular: Denies: no symptoms, chest pain, edema, irregular heart rate, lightheadedness, palpitations, syncope, other Respiratory: Denies: no symptoms, cough, orthopnea, shortness of breath, SOB with excertion, SOB at rest, sputum, stridor, wheezing, other Gastrointestinal/Abdominal: Denies: no symptoms, abdomen distended, abdominal pain, black stools, tarry stools, blood in stool, constipated, diarrhea, difficulty swallowing, nausea, poor appetite, poor fluid intake, rectal bleeding , vomiting, other Genitourinary: Denies: no symptoms, burning, discharge, frequency, flank pain, hematuria, incontinence, pain, urgency, other Hematologic/Lymphatic: Reports: anemia Allergies: Coded Allergies: No Known Allergies (Unverified , 02/19/17) Subjective On bipap. Tachycardic. No fever or chills. Objective Last 24 Hour Vital Signs Date Time Temp Pulse Resp B/P (MAP) Pulse Ox O2 Delivery O2 Flow Rate FiO2 07/26/17 18:52 97 Bi-pap 40 07/26/17 18:52 Bi-pap 40 07/26/17 18:50 112 27 97 Facial 40 07/26/17 17:20 106 27 98 Facial 40 07/26/17 16:00 97.8 106 18 127/87 97 Bi-pap 40 07/26/17 16:00 40 07/26/17 16:00 113 07/26/17 15:10 102 24 98 Facial 40 07/26/17 13:00 92 27 98 Facial 40 07/26/17 12:00 106 07/26/17 12:00 40 07/26/17 12:00 98.1 95 20 145/77 98 Bi-pap 40 07/26/17 11:00 98 22 98 Facial 40 07/26/17 09:15 100 21 99 Facial 40 07/26/17 08:45 91 127/67 07/26/17 08:00 40 07/26/17 08:00 97.8 91 18 127/67 99 Bi-pap 40 07/26/17 08:00 96 07/26/17 07:30 Bi-pap 07/26/17 07:30 99 Bi-pap 40 07/26/17 07:30 94 99 Facial 40 07/26/17 05:09 102 22 98 Facial 40 07/26/17 04:00 103 07/26/17 04:00 40 07/26/17 04:00 98.0 98 22 153/69 98 Bi-pap 40 07/26/17 03:10 98 20 99 Facial 40 07/26/17 00:56 102 22 99 Facial 40 07/26/17 00:00 95 07/26/17 00:00 98.2 110 26 115/75 99 Bi-pap 40 07/26/17 00:00 40 07/25/17 23:11 92 20 99 Facial 40 07/25/17 21:41 99 Bi-pap 40 07/25/17 21:41 Bi-pap 07/25/17 21:39 107 20 99 Facial 40 07/25/17 20:00 97 07/25/17 20:00 98.0 98 24 105/77 99 Bi-pap 40 07/25/17 20:00 40 Intake and Output 07/25/17 07/26/17 19:00 07:00 Intake Total 120 ml 450 ml Output Total 250 ml Balance -130 ml 450 ml Intake Oral 120 ml 450 ml Output Urine Total 250 ml # Voids 3 # Bowel Movements 3 Height (Feet): 5 Height (Inches): 5.00 Weight (Pounds): 250 General Appearance: no apparent distress Cardiovascular: tachycardia Abdomen: non tender, soft Edema: trace edema Skin: warm/dry Uche Leon Jul 26, 2017 19:41
[2017-07-26 20:00] VITALS: BP 139/69
[2017-07-26] MEDS: traMADol 50mg tab ORAL PRN (20:43)
[2017-07-27] VITALS: BP 143/75
[2017-07-27 04:00] VITALS: BP 145/61
[2017-07-27] MEDS: traMADol 50mg tab ORAL PRN ×2 (04:54→20:55)
[2017-07-27 05:39] LABS: BASOPHILS % (AUTO) 0.4 % (0.0-2.0); HEMATOCRIT 32.5 % (37.0-47.0); HEMOGLOBIN 9.9 G/DL (12.0-16.0); LYMPHOCYTES % (AUTO) 29.5 % (20.0-45.0); MEAN CORPUSCULAR VOLUME 101 FL (80-99); MONOCYTES % (AUTO) 13.9 % (1.0-10.0); NEUTROPHILS % (AUTO) 54.1 % (45.0-75.0); PLATELET COUNT 156 K/UL (150-450); RED BLOOD COUNT 3.21 M/UL (4.20-5.40); RED CELL DISTRIBUTION WIDTH 15.5 % (11.6-14.8); WHITE BLOOD COUNT 4.1 K/UL (4.8-10.8)
[2017-07-27 06:15] LABS: ALANINE AMINOTRANSFERASE 19 U/L (12-78); ALBUMIN 2.7 G/DL (3.4-5.0); ALBUMIN/GLOBULIN RATIO 0.7 (1.0-2.7); ALKALINE PHOSPHATASE 50 U/L (46-116); ANION GAP 4 mmol/L (5-15); ASPARTATE AMINO TRANSFERASE 17 U/L (15-37); BILIRUBIN,TOTAL 0.2 MG/DL (0.2-1.0); BLOOD UREA NITROGEN 14 mg/dL (7-18); CARBON DIOXIDE 34 MMOL/L (21-32); CHLORIDE 106 MMOL/L (98-107); CREATININE 0.8 MG/DL (0.55-1.30); PHOSPHORUS 4.1 MG/DL (2.5-4.9); POTASSIUM 3.5 MMOL/L (3.5-5.1); SODIUM 144 MMOL/L (136-145)
[2017-07-27 08:00] VITALS: BP 130/78
[2017-07-27] MEDS: Theophylline ER 100mg ORAL SCH ×2 (08:57→20:54)
[2017-07-27] MEDS: Docusate 100mg cap ORAL SCH ×2 (08:58→18:00)
[2017-07-27] MEDS: Heparin 5000 units/ml inj SUBQ SCH ×2 (08:59→20:56)
--- NOTE | 2017-07-27 10:42 | Pulmonology Progress Note ---
Assessment/Plan Problems: (1) Acute hypercapnic respiratory failure (2) Asthma exacerbation (3) Aspiration pneumonia (4) Ventriculo-peritoneal shunt status Assessment/Plan on bipap, can't come off , refusing intubation, refusing trach wbc normal continue abx, check cultures check electrolytes. trach in am Subjective ROS Limited/Unobtainable: No Interval Events: on bipap Allergies: Coded Allergies: No Known Allergies (Unverified , 02/19/17) Objective Last 24 Hour Vital Signs Date Time Temp Pulse Resp B/P (MAP) Pulse Ox O2 Delivery O2 Flow Rate FiO2 07/27/17 08:58 91 130/78 07/27/17 08:50 95 25 98 Facial 40 07/27/17 08:00 40 07/27/17 08:00 98.8 91 18 130/78 99 Bi-pap 40 07/27/17 08:00 95 07/27/17 06:40 91 20 99 Facial 40 07/27/17 05:30 91 23 97 Facial 40 07/27/17 04:00 97.5 90 22 145/61 99 Bi-pap 40 07/27/17 04:00 40 07/27/17 04:00 83 07/27/17 03:01 90 24 98 Facial 40 07/27/17 01:11 92 21 97 Facial 40 07/27/17 00:00 40 07/27/17 00:00 90 07/27/17 00:00 97.5 98 20 143/75 99 Bi-pap 40 07/26/17 23:00 86 20 97 Facial 40 07/26/17 21:06 98 24 98 Facial 40 07/26/17 20:00 97.9 100 22 139/69 97 Bi-pap 40 07/26/17 20:00 40 07/26/17 20:00 108 07/26/17 18:52 97 Bi-pap 40 07/26/17 18:52 Bi-pap 40 07/26/17 18:50 112 27 97 Facial 40 07/26/17 17:20 106 27 98 Facial 40 07/26/17 16:00 97.8 106 18 127/87 97 Bi-pap 40 07/26/17 16:00 40 07/26/17 16:00 113 07/26/17 15:10 102 24 98 Facial 40 07/26/17 13:00 92 27 98 Facial 40 07/26/17 12:00 106 07/26/17 12:00 40 07/26/17 12:00 98.1 95 20 145/77 98 Bi-pap 40 07/26/17 11:00 98 22 98 Facial 40 Intake and Output 07/26/17 07/27/17 19:00 07:00 Intake Total 640 ml Balance 640 ml Intake Oral 640 ml # Voids 1 3 # Bowel Movements 2 Objective Lines, tubes and drains: peripheral HEENT: normocephalic Neck: non-tender, normal alignment, supple Respiratory/Chest: chest wall non-tender, crackles/rales, rhonchi - left, rhonchi - right Cardiovascular/Chest: normal peripheral pulses, normal rate Abdomen: normal bowel sounds, non tender Genitourinary/Rectal: normal genital exam, normal rectal exam, normal prostate exam Extremities: normal range of motion Laboratory Tests 07/27/17 04:30: White Blood Count 4.1L, Red Blood Count 3.21L, Hemoglobin 9.9L, Hematocrit 32.5L , Mean Corpuscular Volume 101H, Mean Corpuscular Hemoglobin 30.9, Mean Corpuscular Hemoglobin Concent 30.6L, Red Cell Distribution Width 15.5H, Platelet Count 156, Mean Platelet Volume 7.2, Neutrophils (%) (Auto) 54.1, Lymphocytes (%) (Auto) 29.5, Monocytes (%) (Auto) 13.9H, Eosinophils (%) (Auto) 2.0, Basophils (%) (Auto) 0.4, Sodium Level 144, Potassium Level 3.5, Chloride Level 106, Carbon Dioxide Level 34H, Anion Gap 4L, Blood Urea Nitrogen 14, Creatinine 0.8, Estimat Glomerular Filtration Rate > 60, Glucose Level 99, Calcium Level 9.0, Phosphorus Level 4.1, Magnesium Level 1.9, Total Bilirubin 0.2, Aspartate Amino Transf (AST/SGOT) 17, Alanine Aminotransferase (ALT/SGPT) 19, Alkaline Phosphatase 50, Total Protein 6.4, Albumin 2.7L, Globulin 3.7, Albumin/Globulin Ratio 0.7L Current Medications Medications (Trade) Dose Ordered Sig/Selvin Route PRN Reason Start Time Stop Time Status Last Admin Dose Admin Acetaminophen (Tylenol) 650 mg Q4H PRN ORAL Mild Pain/Temp > 100.5 07/22/17 11:15 2/12/18 11:14 07/25/17 03:59 Acetazolamide (Diamox) 250 mg TWICE A DAY ORAL 07/16/17 18:00 08/15/17 17:59 07/27/17 08:57 Amlodipine Besylate (Norvasc) 5 mg DAILY ORAL 07/16/17 09:00 08/09/17 09:44 07/27/17 08:58 Clonidine HCl (Catapres) 0.1 mg EVERY 6 HOURS PRN ORAL For High Blood Pressure>160 07/15/17 12:00 08/14/17 07:44 Docusate Sodium (Colace) 100 mg TWICE A DAY ORAL 07/15/17 18:00 08/09/17 09:44 07/26/17 08:45 Escitalopram Oxalate (Lexapro) 20 mg DAILY ORAL 07/16/17 09:00 08/14/17 08:59 07/27/17 08:57 Gabapentin (Neurontin) 300 mg THREE TIMES A DAY ORAL 07/27/17 13:00 08/20/17 12:59 Heparin Sodium (Porcine) (Heparin 5000 units/ml) 5,000 units EVERY 12 HOURS SUBQ 07/15/17 21:00 08/09/17 09:44 07/27/17 08:59 Levetiracetam (Keppra) 500 mg Q12HR ORAL 07/15/17 21:00 08/09/17 09:44 07/27/17 08:57 Quetiapine Fumarate (SEROquel) 25 mg BEDTIME ORAL 07/18/17 21:00 08/17/17 20:59 07/26/17 20:34 Theophylline (Paresh-Dur) 200 mg EVERY 12 HOURS ORAL 07/22/17 09:00 08/21/17 08:59 07/27/17 08:57 Tramadol HCl (Ultram) 50 mg Q6H PRN ORAL Moderate Pain (Pain Scale 4-6) 07/25/17 09:00 08/01/17 08:59 07/27/17 04:54 CRISTINA BRAMBILA Jul 27, 2017 10:41
[2017-07-27 12:00] VITALS: BP 127/80
[2017-07-27 16:00] VITALS: BP 136/82
[2017-07-27] MEDS ORDERED: Morphine Sulfate 4mg/ml Inj IVP ONE (17:30)
--- NOTE | 2017-07-27 18:45 | Pre-Procedure Note/Attestation ---
Pre-Procedure Note/Attestation Complete Prior to Procedure Planned Procedure: not applicable Procedure Narrative: tracheostomy Indications for Procedure Pre-Operative Diagnosis: respiratory insufficiency requiring positive pressure Attestation I attest that I discussed the nature of the procedure; its benefits; risks and complications; and alternatives (and the risks and benefits of such alternatives ), prior to the procedure, with the patient (or the patient's legal loss control representative). I attest that, if there was a reasonable possibility of needing a blood transfusion, the patient (or the patient's legal loss control representative) was given the [facility] standardized written summary, pursuant to the Samuel Jamar Blood Safety Act ([place] Health and Safety Code # 1645, as amended). I attest that I re-evaluated the patient just prior to the surgery and that there has been no change in the patient's H&P, except as documented below: [place] Jul 27, 2017 18:45
[2017-07-27 20:00] VITALS: BP 135/78
--- NOTE | 2017-07-27 21:38 | Infectious Diseases Prog Note ---
Assessment/Plan Assessment/Plan A: Asthma exacerbation- r/o Influenza, r/o bacterial bronchitis-possible PNA-; s/p Rx r/o fungal PNA- possibly ANNETTE, ?obesity hypoventilation syndrome contributing BiPAP on/off , C02 retention -CXR 07/24Cardiomegaly with persistent bilateral perihilar hazy opacities, slightly decreased on the right. -CXR: Bilateral diffuse infiltrates versus edema -sp cx normal tristen -HIV 2 ab neg, CrAg neg Leukocytosis, SP -Cdiff 07/17 neg -Bcx Neg x4 -influenza test ordered, never done- treated empirically Plan: - Continue to monitor off abx -07/19 SP Levaquin #5 -07/17 SP Zosyn #7 -07/15 SP Tamiflu #5/5 -2 SP Levaquin #3 -Monitor CBC/BMP, temperatures; trend WBC- if continues to worsen will repeat cultures -aspiration precautions -f/u cocci ab Subjective Allergies: Coded Allergies: No Known Allergies (Unverified , 02/19/17) Subjective Afebrile Objective Vital Signs Last 24 Hour Vital Signs Date Time Temp Pulse Resp B/P (MAP) Pulse Ox O2 Delivery O2 Flow Rate FiO2 07/27/17 21:21 90 21 98 Facial 40 07/27/17 19:06 92 23 98 Facial 40 07/27/17 16:45 88 30 99 Facial 40 07/27/17 16:00 97.5 87 20 136/82 98 Bi-pap 40 07/27/17 16:00 91 07/27/17 16:00 40 07/27/17 15:20 92 25 99 Facial 40 07/27/17 12:45 92 20 99 Facial 40 07/27/17 12:00 97.5 77 19 127/80 98 Bi-pap 40 07/27/17 12:00 75 07/27/17 12:00 40 07/27/17 11:00 97 23 98 Facial 40 07/27/17 08:58 91 130/78 07/27/17 08:50 95 25 98 Facial 40 07/27/17 08:00 40 07/27/17 08:00 98.8 91 18 130/78 99 Bi-pap 40 07/27/17 08:00 95 07/27/17 06:40 91 20 99 Facial 40 07/27/17 05:30 91 23 97 Facial 40 07/27/17 04:00 97.5 90 22 145/61 99 Bi-pap 40 07/27/17 04:00 40 07/27/17 04:00 83 07/27/17 03:01 90 24 98 Facial 40 07/27/17 01:11 92 21 97 Facial 40 07/27/17 00:00 40 07/27/17 00:00 90 07/27/17 00:00 97.5 98 20 143/75 99 Bi-pap 40 07/26/17 23:00 86 20 97 Facial 40 Height (Feet): 5 Height (Inches): 5.00 Weight (Pounds): 250 HEENT: atraumatic Respiratory/Chest: normal breath sounds Cardiovascular: no gallop/murmur Abdomen: no organomegaly Laboratory Tests Test 07/27/17 04:30 White Blood Count 4.1 K/UL (4.8-10.8) L Red Blood Count 3.21 M/UL (4.20-5.40) L Hemoglobin 9.9 G/DL (12.0-16.0) L Hematocrit 32.5 % (37.0-47.0) L Mean Corpuscular Volume 101 FL (80-99) H Mean Corpuscular Hemoglobin 30.9 PG (27.0-31.0) Mean Corpuscular Hemoglobin Concent 30.6 G/DL (32.0-36.0) L Red Cell Distribution Width 15.5 % (11.6-14.8) H Platelet Count 156 K/UL (150-450) Mean Platelet Volume 7.2 FL (6.5-10.1) Neutrophils (%) (Auto) 54.1 % (45.0-75.0) Lymphocytes (%) (Auto) 29.5 % (20.0-45.0) Monocytes (%) (Auto) 13.9 % (1.0-10.0) H Eosinophils (%) (Auto) 2.0 % (0.0-3.0) Basophils (%) (Auto) 0.4 % (0.0-2.0) Sodium Level 144 MMOL/L (136-145) Potassium Level 3.5 MMOL/L (3.5-5.1) Chloride Level 106 MMOL/L (98-107) Carbon Dioxide Level 34 MMOL/L (21-32) H Anion Gap 4 mmol/L (5-15) L Blood Urea Nitrogen 14 mg/dL (7-18) Creatinine 0.8 MG/DL (0.55-1.30) Estimat Glomerular Filtration Rate > 60 mL/min (>60) Glucose Level 99 MG/DL (74-106) Calcium Level 9.0 MG/DL (8.5-10.1) Phosphorus Level 4.1 MG/DL (2.5-4.9) Magnesium Level 1.9 MG/DL (1.8-2.4) Total Bilirubin 0.2 MG/DL (0.2-1.0) Aspartate Amino Transf (AST/SGOT) 17 U/L (15-37) Alanine Aminotransferase (ALT/SGPT) 19 U/L (12-78) Alkaline Phosphatase 50 U/L (46-116) Total Protein 6.4 G/DL (6.4-8.2) Albumin 2.7 G/DL (3.4-5.0) L Globulin 3.7 g/dL Albumin/Globulin Ratio 0.7 (1.0-2.7) L Current Medications Medications (Trade) Dose Ordered Sig/Selvin Route PRN Reason Start Time Stop Time Status Last Admin Dose Admin Acetaminophen (Tylenol) 650 mg Q4H PRN ORAL Mild Pain/Temp > 100.5 07/22/17 11:15 08/21/17 11:14 07/25/17 03:59 Acetazolamide (Diamox) 250 mg TWICE A DAY ORAL 07/16/17 18:00 08/15/17 17:59 07/27/17 18:41 Amlodipine Besylate (Norvasc) 5 mg DAILY ORAL 07/16/17 09:00 08/09/17 09:44 07/27/17 08:58 Clonidine HCl (Catapres) 0.1 mg EVERY 6 HOURS PRN ORAL For High Blood Pressure>160 07/15/17 12:00 08/14/17 07:44 Docusate Sodium (Colace) 100 mg TWICE A DAY ORAL 07/15/17 18:00 08/09/17 09:44 07/26/17 08:45 Escitalopram Oxalate (Lexapro) 20 mg DAILY ORAL 07/16/17 09:00 08/14/17 08:59 07/27/17 08:57 Gabapentin (Neurontin) 300 mg THREE TIMES A DAY ORAL 07/27/17 13:00 08/20/17 12:59 07/27/17 18:41 Heparin Sodium (Porcine) (Heparin 5000 units/ml) 5,000 units EVERY 12 HOURS SUBQ 07/15/17 21:00 08/09/17 09:44 07/27/17 08:59 Levetiracetam (Keppra) 500 mg Q12HR ORAL 07/15/17 21:00 08/09/17 09:44 07/27/17 20:53 Quetiapine Fumarate (SEROquel) 25 mg BEDTIME ORAL 07/18/17 21:00 08/17/17 20:59 07/27/17 20:54 Theophylline (Paresh-Dur) 200 mg EVERY 12 HOURS ORAL 07/22/17 09:00 08/21/17 08:59 07/27/17 20:54 Tramadol HCl (Ultram) 50 mg Q6H PRN ORAL Moderate Pain (Pain Scale 4-6) 07/25/17 09:00 08/01/17 08:59 07/27/17 20:55 JAYY HARMAN M.D. Jul 27, 2017 21:38
--- NOTE | 2017-07-27 22:45 | General Progress Note ---
Assessment/Plan Assessment/Plan ASSESSMENT AND RECS: #. Anemia secondary to chronic disease. --> Continue to closely monitor. --> anemia w/u has been ordered and reviewed, no aid noted --> Blood transfusion not required today. Has been stable >7 #. Shortness of breath, related to underlying asthma exacerbation. --> On Levaquin for bacterial bronchitis. Continue per ID service. --> on bipap, pulm following #. Leukocytosis related to underlying steroids. --> Resolved. --> Wbc count WNL #. Asthma exacerbation with infiltrates noted. Continue Tamiflu. #. Elevated bicarb, potentially related to acidosis, retention of CO2. #. Hypoglycemia, potentially related to steroids. #. Seizure disorder, currently stable #. Malnutrition Cdiff negative, bcx neg x4 Subjective Date patient seen: Jul 27, 2017 Constitutional: Denies: no symptoms, chills, diaphoresis, fever, malaise, weakness, other HEENT: Denies: no symptoms, eye pain, blurred vision, tearing, double vision, ear pain, ear discharge, nose pain, nose congestion, throat pain, throat swelling, mouth pain, mouth swelling, other Cardiovascular: Denies: no symptoms, chest pain, edema, irregular heart rate, lightheadedness, palpitations, syncope, other Respiratory: Denies: no symptoms, cough, orthopnea, shortness of breath, SOB with excertion, SOB at rest, sputum, stridor, wheezing, other Gastrointestinal/Abdominal: Denies: no symptoms, abdomen distended, abdominal pain, black stools, tarry stools, blood in stool, constipated, diarrhea, difficulty swallowing, nausea, poor appetite, poor fluid intake, rectal bleeding , vomiting, other Hematologic/Lymphatic: Reports: anemia Allergies: Coded Allergies: No Known Allergies (Unverified , 02/19/17) Subjective On pain management. H/H stable. Remains on bipap. Objective Last 24 Hour Vital Signs Date Time Temp Pulse Resp B/P (MAP) Pulse Ox O2 Delivery O2 Flow Rate FiO2 07/27/17 21:21 90 21 98 Facial 40 07/27/17 19:06 92 23 98 Facial 40 07/27/17 16:45 88 30 99 Facial 40 07/27/17 16:00 97.5 87 20 136/82 98 Bi-pap 40 07/27/17 16:00 91 07/27/17 16:00 40 07/27/17 15:20 92 25 99 Facial 40 07/27/17 12:45 92 20 99 Facial 40 07/27/17 12:00 97.5 77 19 127/80 98 Bi-pap 40 07/27/17 12:00 75 07/27/17 12:00 40 07/27/17 11:00 97 23 98 Facial 40 07/27/17 08:58 91 130/78 07/27/17 08:50 95 25 98 Facial 40 07/27/17 08:00 40 07/27/17 08:00 98.8 91 18 130/78 99 Bi-pap 40 07/27/17 08:00 95 07/27/17 06:40 91 20 99 Facial 40 07/27/17 05:30 91 23 97 Facial 40 07/27/17 04:00 97.5 90 22 145/61 99 Bi-pap 40 07/27/17 04:00 40 07/27/17 04:00 83 07/27/17 03:01 90 24 98 Facial 40 07/27/17 01:11 92 21 97 Facial 40 07/27/17 00:00 40 07/27/17 00:00 90 07/27/17 00:00 97.5 98 20 143/75 99 Bi-pap 40 07/26/17 23:00 86 20 97 Facial 40 Intake and Output 07/26/17 07/27/17 19:00 07:00 Intake Total 640 ml Balance 640 ml Intake Oral 640 ml # Voids 1 3 # Bowel Movements 2 Laboratory Tests 07/27/17 04:30: White Blood Count 4.1L, Red Blood Count 3.21L, Hemoglobin 9.9L, Hematocrit 32.5L , Mean Corpuscular Volume 101H, Mean Corpuscular Hemoglobin 30.9, Mean Corpuscular Hemoglobin Concent 30.6L, Red Cell Distribution Width 15.5H, Platelet Count 156, Mean Platelet Volume 7.2, Neutrophils (%) (Auto) 54.1, Lymphocytes (%) (Auto) 29.5, Monocytes (%) (Auto) 13.9H, Eosinophils (%) (Auto) 2.0, Basophils (%) (Auto) 0.4, Sodium Level 144, Potassium Level 3.5, Chloride Level 106, Carbon Dioxide Level 34H, Anion Gap 4L, Blood Urea Nitrogen 14, Creatinine 0.8, Estimat Glomerular Filtration Rate > 60, Glucose Level 99, Calcium Level 9.0, Phosphorus Level 4.1, Magnesium Level 1.9, Total Bilirubin 0.2, Aspartate Amino Transf (AST/SGOT) 17, Alanine Aminotransferase (ALT/SGPT) 19, Alkaline Phosphatase 50, Total Protein 6.4, Albumin 2.7L, Globulin 3.7, Albumin/Globulin Ratio 0.7L Height (Feet): 5 Height (Inches): 5.00 Weight (Pounds): 250 General Appearance: no apparent distress Respiratory/Chest: decreased breath sounds Edema: trace edema Skin: warm/dry Uche Leon Jul 27, 2017 22:45
[2017-07-28] VITALS (13 sets, daily range): BP systolic 123–165; BP diastolic 66–131
[2017-07-28 06:04] LABS: BASOPHILS % (AUTO) 0.5 % (0.0-2.0); EOSINOPHILS % (AUTO) 2.3 % (0.0-3.0); HEMATOCRIT 32.5 % (37.0-47.0); HEMOGLOBIN 9.9 G/DL (12.0-16.0); LYMPHOCYTES % (AUTO) 30.2 % (20.0-45.0); MEAN CORPUSCULAR VOLUME 102 FL (80-99); MONOCYTES % (AUTO) 11.7 % (1.0-10.0); NEUTROPHILS % (AUTO) 55.4 % (45.0-75.0); PLATELET COUNT 164 K/UL (150-450); RED BLOOD COUNT 3.19 M/UL (4.20-5.40); RED CELL DISTRIBUTION WIDTH 16.1 % (11.6-14.8); WHITE BLOOD COUNT 5.2 K/UL (4.8-10.8)
[2017-07-28 06:38] LABS: ALANINE AMINOTRANSFERASE 15 U/L (12-78); ALBUMIN 2.6 G/DL (3.4-5.0); ALBUMIN/GLOBULIN RATIO 0.7 (1.0-2.7); ALKALINE PHOSPHATASE 44 U/L (46-116); ANION GAP 5 mmol/L (5-15); ASPARTATE AMINO TRANSFERASE 17 U/L (15-37); BILIRUBIN,TOTAL 0.2 MG/DL (0.2-1.0); BLOOD UREA NITROGEN 12 mg/dL (7-18); CALCIUM 8.8 MG/DL (8.5-10.1); CARBON DIOXIDE 33 MMOL/L (21-32); CHLORIDE 106 MMOL/L (98-107); CREATININE 0.8 MG/DL (0.55-1.30); POTASSIUM 3.4 MMOL/L (3.5-5.1); SODIUM 143 MMOL/L (136-145)
[2017-07-28] MEDS: Docusate 100mg cap ORAL SCH ×2 (08:14→18:00)
[2017-07-28] MEDS: Heparin 5000 units/ml inj SUBQ SCH ×2 (08:14→21:06)
[2017-07-28] MEDS: Theophylline ER 100mg ORAL SCH (08:16)
[2017-07-28] MEDS: traMADol 50mg tab ORAL PRN (08:29)
--- NOTE | 2017-07-28 10:02 | General Progress Note ---
Progress Note Progress Note Surgery: doing well. still with BIPAP and states discomfort with mask. discussed plans to today and she states she is ready and looking forward to trach. understands there will be initial discomfort and will need to get use to trach but is okay with it. risks, benefits, and alternatives discussed. she has been looking into trach for sometime now and is ready. plan for OR today [place] Jul 28, 2017 10:02
--- NOTE | 2017-07-28 11:10 | Anethesia Preoperative Eval ---
Anesthesia Pre-op PMH/ROS General Date of Evaluation: Jul 27, 2017 Time of Evaluation: 18:50 Anesthesiologist: Mac ASA Score: ASA 3 Mallampati Score Class I : Soft palate, uvula, fauces, pillars visible Class II: Soft palate, uvula, fauces visible Class III: Soft palate, base of uvula visible Class IV: Only hard plate visible Mallampati Classification: Class III Surgeon: Mavis Diagnosis: Respiratory failure Surgical Procedure: Tracheostomy Anesthesia History: none Family History: no anesthesia problems Allergies: Coded Allergies: No Known Allergies (Unverified , 02/19/17) Medications: see eMAR Past Medical History Cardiovascular: Reports: HTN, Denies: CAD, ME, valve dz, arrhythmia, other Pulmonary: Reports: asthma, COPD, ANNETTE, other - respiratory failure Gastrointestinal/Genitourinary: Reports: GERD, Denies: CRI, ESRD, other Neurologic/Psychiatric: Reports: depression/anxiety, other - seizures, Denies: dementia, CVA, TIA Endocrine: Denies: DM, hypothyroidism, steroids, other HEENT: Denies: cataract (L), cataract (R), glaucoma, KAIBAB (L), KAIBAB (R), other Hematology/Immune: Reports: anemia - mild, Denies: DVT, bleeding disorder, other Musculoskeletal/Integumentary: Denies: OA, RA, DJD, DDD, edema, other Other: obesity - morbid obesity PMH Narrative: as above PSxH Narrative: see H&P Anesthesia Pre-op Phys. Exam Physician Exam Last Vital Signs Date Time Temp Pulse Resp B/P (MAP) Pulse Ox O2 Delivery O2 Flow Rate FiO2 07/28/17 08:30 91 21 98 Facial 40 07/28/17 08:15 124/77 07/28/17 08:00 97.7 Constitutional: NAD Neurologic: CN 2-12 intact Cardiovascular: RRR Respiratory: other - diminished breath sounds Gastrointestinal: other - obesity Airway Exam Mallampati Score: Class III MO: limited Neck: short ROM: limited Teeth: missing Dentures: no upper, no lower Anesthesia Pre-op A/P Labs Hematology Test 07/28/17 03:25 White Blood Count 5.2 K/UL (4.8-10.8) Red Blood Count 3.19 M/UL (4.20-5.40) L Hemoglobin 9.9 G/DL (12.0-16.0) L Hematocrit 32.5 % (37.0-47.0) L Mean Corpuscular Volume 102 FL (80-99) H Mean Corpuscular Hemoglobin 31.2 PG (27.0-31.0) H Mean Corpuscular Hemoglobin Concent 30.6 G/DL (32.0-36.0) L Red Cell Distribution Width 16.1 % (11.6-14.8) H Platelet Count 164 K/UL (150-450) Mean Platelet Volume 7.6 FL (6.5-10.1) Neutrophils (%) (Auto) 55.4 % (45.0-75.0) Lymphocytes (%) (Auto) 30.2 % (20.0-45.0) Monocytes (%) (Auto) 11.7 % (1.0-10.0) H Eosinophils (%) (Auto) 2.3 % (0.0-3.0) Basophils (%) (Auto) 0.5 % (0.0-2.0) Chemistry Test 07/28/17 03:25 Sodium Level 143 MMOL/L (136-145) Potassium Level 3.4 MMOL/L (3.5-5.1) L Chloride Level 106 MMOL/L (98-107) Carbon Dioxide Level 33 MMOL/L (21-32) H Anion Gap 5 mmol/L (5-15) Blood Urea Nitrogen 12 mg/dL (7-18) Creatinine 0.8 MG/DL (0.55-1.30) Estimat Glomerular Filtration Rate > 60 mL/min (>60) Glucose Level 51 MG/DL (74-106) L Calcium Level 8.8 MG/DL (8.5-10.1) Total Bilirubin 0.2 MG/DL (0.2-1.0) Aspartate Amino Transf (AST/SGOT) 17 U/L (15-37) Alanine Aminotransferase (ALT/SGPT) 15 U/L (12-78) Alkaline Phosphatase 44 U/L (46-116) L Pro-B-Type Natriuretic Peptide 20 pg/mL (0-125) Total Protein 6.3 G/DL (6.4-8.2) L Albumin 2.6 G/DL (3.4-5.0) L Globulin 3.7 g/dL Albumin/Globulin Ratio 0.7 (1.0-2.7) L Risk Assessment & Plan Assessment: ASA 3 Plan: GA with ETT Pre-Antibiotics Drug: as scheduled LIU WADDELL M.D. Jul 28, 2017 11:10
--- NOTE | 2017-07-28 11:47 | Pulmonolgy Critical Care Note ---
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, 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 Discussed with: nurses, consultants Critical Care - Objective Last 24 Hour Vital Signs Date Time Temp Pulse Resp B/P (MAP) Pulse Ox O2 Delivery O2 Flow Rate FiO2 07/28/17 08:30 91 21 98 Facial 40 07/28/17 08:15 79 124/77 07/28/17 08:00 40 07/28/17 08:00 88 07/28/17 08:00 97.7 85 20 123/74 98 Bi-pap 40 07/28/17 06:40 90 21 98 Facial 40 07/28/17 05:18 79 19 97 Facial 40 07/28/17 04:00 91 07/28/17 04:00 97.9 81 20 124/77 97 Bi-pap 40 07/28/17 04:00 40 07/28/17 02:57 80 20 98 Facial 40 07/28/17 00:44 76 20 98 Facial 40 07/28/17 00:00 98.0 73 18 124/66 96 Bi-pap 40 07/28/17 00:00 73 07/27/17 22:40 74 20 98 Facial 40 07/27/17 21:21 90 21 98 Facial 40 07/27/17 20:00 86 07/27/17 20:00 97.6 80 21 135/78 98 Bi-pap 40 07/27/17 20:00 40 07/27/17 19:06 92 23 98 Facial 40 07/27/17 16:45 88 30 99 Facial 40 07/27/17 16:00 97.5 87 20 136/82 98 Bi-pap 40 07/27/17 16:00 91 07/27/17 16:00 40 07/27/17 15:20 92 25 99 Facial 40 07/27/17 12:45 92 20 99 Facial 40 07/27/17 12:00 97.5 77 19 127/80 98 Bi-pap 40 07/27/17 12:00 75 07/27/17 12:00 40 Status: awake Condition: grave Neck: full ROM Lungs: chest wall tender Heart: HR/BP stable, HR/BP unstable, regular Abdomen: non-tender, active bowel sounds Extremities: no C/C/E Accucheck: 119 Critical Care - Subjective ROS Limited/Unobtainable: No ICU Day: 1 Condition: critical EKG Rhythm: Sinus Rhythm FI02: 40 Vent Support Breath Rate: 16 Vent Support Mode: BiLevel Sputum Amount: None I&O: Intake and Output 07/27/17 07/28/17 19:00 07:00 Intake Total 420 ml 200 ml Balance 420 ml 200 ml Intake Oral 420 ml 200 ml # Voids 4 3 # Bowel Movements 1 CXR: no change Labs: Laboratory Tests Test 07/28/17 03:25 White Blood Count 5.2 K/UL (4.8-10.8) Red Blood Count 3.19 M/UL (4.20-5.40) L Hemoglobin 9.9 G/DL (12.0-16.0) L Hematocrit 32.5 % (37.0-47.0) L Mean Corpuscular Volume 102 FL (80-99) H Mean Corpuscular Hemoglobin 31.2 PG (27.0-31.0) H Mean Corpuscular Hemoglobin Concent 30.6 G/DL (32.0-36.0) L Red Cell Distribution Width 16.1 % (11.6-14.8) H Platelet Count 164 K/UL (150-450) Mean Platelet Volume 7.6 FL (6.5-10.1) Neutrophils (%) (Auto) 55.4 % (45.0-75.0) Lymphocytes (%) (Auto) 30.2 % (20.0-45.0) Monocytes (%) (Auto) 11.7 % (1.0-10.0) H Eosinophils (%) (Auto) 2.3 % (0.0-3.0) Basophils (%) (Auto) 0.5 % (0.0-2.0) Sodium Level 143 MMOL/L (136-145) Potassium Level 3.4 MMOL/L (3.5-5.1) L Chloride Level 106 MMOL/L (98-107) Carbon Dioxide Level 33 MMOL/L (21-32) H Anion Gap 5 mmol/L (5-15) Blood Urea Nitrogen 12 mg/dL (7-18) Creatinine 0.8 MG/DL (0.55-1.30) Estimat Glomerular Filtration Rate > 60 mL/min (>60) Glucose Level 51 MG/DL (74-106) L Calcium Level 8.8 MG/DL (8.5-10.1) Total Bilirubin 0.2 MG/DL (0.2-1.0) Aspartate Amino Transf (AST/SGOT) 17 U/L (15-37) Alanine Aminotransferase (ALT/SGPT) 15 U/L (12-78) Alkaline Phosphatase 44 U/L (46-116) L Pro-B-Type Natriuretic Peptide 20 pg/mL (0-125) Total Protein 6.3 G/DL (6.4-8.2) L Albumin 2.6 G/DL (3.4-5.0) L Globulin 3.7 g/dL Albumin/Globulin Ratio 0.7 (1.0-2.7) L CRISTINA BRAMBILA Jul 28, 2017 11:47
[2017-07-28] MEDS ORDERED: LR 1000ml 1,000 ML IVLG SCH (12:10)
[2017-07-28] MEDS ORDERED: DiphenhydrAMINE 50mg/ml Inj IVP PRN ×2 (12:15→15:15)
[2017-07-28] MEDS ORDERED: Midazolam 2mg/2ml Inj IVP PRN ×2 (12:15→15:15)
[2017-07-28] MEDS ORDERED: Hydromorphone 0.5mg/0.5ml inj IVP PRN ×2 (12:15→15:15)
[2017-07-28] MEDS ORDERED: fentaNYL 100 mcg/2 mL IV PRN ×2 (12:15→15:15)
--- NOTE | 2017-07-28 12:24 | Anethesia Preoperative Eval ---
Anesthesia Pre-op PMH/ROS General Date of Evaluation: Jul 28, 2017 Time of Evaluation: 12:22 Anesthesiologist: Ross ASA Score: ASA 3 Mallampati Score Class I : Soft palate, uvula, fauces, pillars visible Class II: Soft palate, uvula, fauces visible Class III: Soft palate, base of uvula visible Class IV: Only hard plate visible Mallampati Classification: Class I Surgeon: Mavis Diagnosis: Vent Dependency Surgical Procedure: Tracheostomy Anesthesia History: none Family History: no anesthesia problems Allergies: Coded Allergies: No Known Allergies (Unverified , 02/19/17) Medications: see eMAR Past Medical History Pulmonary: Reports: asthma, COPD Anesthesia Pre-op Phys. Exam Physician Exam Last Vital Signs Date Time Temp Pulse Resp B/P (MAP) Pulse Ox O2 Delivery O2 Flow Rate FiO2 07/28/17 10:40 94 24 99 Facial 40 07/28/17 08:15 124/77 07/28/17 08:00 97.7 Constitutional: NAD Neurologic: CN 2-12 intact Cardiovascular: RRR Respiratory: CTA Gastrointestinal: S/NT/ND Airway Exam Mallampati Score: Class III MO: full ROM: full Teeth: intact Anesthesia Pre-op A/P Labs Hematology Test 07/28/17 03:25 White Blood Count 5.2 K/UL (4.8-10.8) Red Blood Count 3.19 M/UL (4.20-5.40) L Hemoglobin 9.9 G/DL (12.0-16.0) L Hematocrit 32.5 % (37.0-47.0) L Mean Corpuscular Volume 102 FL (80-99) H Mean Corpuscular Hemoglobin 31.2 PG (27.0-31.0) H Mean Corpuscular Hemoglobin Concent 30.6 G/DL (32.0-36.0) L Red Cell Distribution Width 16.1 % (11.6-14.8) H Platelet Count 164 K/UL (150-450) Mean Platelet Volume 7.6 FL (6.5-10.1) Neutrophils (%) (Auto) 55.4 % (45.0-75.0) Lymphocytes (%) (Auto) 30.2 % (20.0-45.0) Monocytes (%) (Auto) 11.7 % (1.0-10.0) H Eosinophils (%) (Auto) 2.3 % (0.0-3.0) Basophils (%) (Auto) 0.5 % (0.0-2.0) Chemistry Test 07/28/17 03:25 Sodium Level 143 MMOL/L (136-145) Potassium Level 3.4 MMOL/L (3.5-5.1) L Chloride Level 106 MMOL/L (98-107) Carbon Dioxide Level 33 MMOL/L (21-32) H Anion Gap 5 mmol/L (5-15) Blood Urea Nitrogen 12 mg/dL (7-18) Creatinine 0.8 MG/DL (0.55-1.30) Estimat Glomerular Filtration Rate > 60 mL/min (>60) Glucose Level 51 MG/DL (74-106) L Calcium Level 8.8 MG/DL (8.5-10.1) Total Bilirubin 0.2 MG/DL (0.2-1.0) Aspartate Amino Transf (AST/SGOT) 17 U/L (15-37) Alanine Aminotransferase (ALT/SGPT) 15 U/L (12-78) Alkaline Phosphatase 44 U/L (46-116) L Pro-B-Type Natriuretic Peptide 20 pg/mL (0-125) Total Protein 6.3 G/DL (6.4-8.2) L Albumin 2.6 G/DL (3.4-5.0) L Globulin 3.7 g/dL Albumin/Globulin Ratio 0.7 (1.0-2.7) L Risk Assessment & Plan Plan: GA Pre-Antibiotics Drug: Ancef Given Within 1 Hr of Incision: Yes Time Given: 14:00 Miller Hawkins M.D. Jul 28, 2017 12:24
--- NOTE | 2017-07-28 12:27 | Immediate Post-Op Evaluation ---
Immediate Post-Op Evalulation Immediate Post-Op Evalulation Procedure: Tracheostomy Date of Evaluation: Jul 28, 2017 Time of Evaluation: 15:00 IV Fluids: 200 Blood Products: 0 Estimated Blood Loss: 0 Urinary Output: 0 Blood Pressure Systolic: 134 Blood Pressure Diastolic: 69 Pulse Rate: 68 Respiratory Rate: 18 O2 Sat by Pulse Oximetry: 99 Temperature (Fahrenheit): 98 Pain Score (1-10): 0 Nausea: No Vomiting: No Patient Status: awake, patent, ventilated Drug: Ancef Given Within 1 Hr of Incision: Yes Time Given: 14:00 Miller Hawkins M.D. Jul 28, 2017 12:27
--- NOTE | 2017-07-28 12:31 | Diagnostic Imaging Report ---
Indication: Dyspnea Technique: XRAY Chest 1v Comparison: 07/24/2017 Findings: Stable cardiomegaly. Subtle perihilar opacities are again noted, pronounced on the left. There is no pneumothorax. No additional focal airspace consolidation. Portions of a likely jugular peritoneal catheter noted coursing over the right neck and chest. Impression: Cardiomegaly with persistent hazy perihilar opacities, left greater than right.
[2017-07-28] MEDS ORDERED: Midazolam 2mg/2ml Inj ONE (13:00)
[2017-07-28] MEDS ORDERED: Metoclopramide 10mg/2ml Inj ONE (13:00)
[2017-07-28] MEDS ORDERED: LR 1000ml ONE (13:00)
[2017-07-28] MEDS ORDERED: Ketorolac 30mg Inj ONE (13:00)
[2017-07-28] MEDS ORDERED: Propofol 200mg/20ml IV ONE (13:00)
[2017-07-28] MEDS ORDERED: Potassium Chloride 40 MEQ/NS 550ML IVPB ONE ×4 (13:00→16:00)
[2017-07-28] MEDS ORDERED: Glycopyrrolate 0.2mg/ml 1ml Vial ONE (13:00)
[2017-07-28] MEDS ORDERED: Succinylcholine 20mg/ml 10ml vial ONE (13:00)
[2017-07-28] MEDS ORDERED: fentaNYL 100 mcg/2 mL IV ONE (13:00)
--- NOTE | 2017-07-28 13:07 | Infectious Diseases Prog Note ---
Assessment/Plan Assessment/Plan A: Asthma exacerbation- r/o Influenza, r/o bacterial bronchitis-possible PNA-; s/p Rx r/o fungal PNA- possibly ANNETTE, ?obesity hypoventilation syndrome contributing BiPAP on/off , C02 retention -CXR 07/24Cardiomegaly with persistent bilateral perihilar hazy opacities, slightly decreased on the right. -CXR: Bilateral diffuse infiltrates versus edema -sp cx normal tristen -HIV 07/11 ab neg, CrAg neg Leukocytosis, SP -Cdiff 07/17 neg -Bcx Neg x4 -influenza test ordered, never done- treated empirically Plan: - Continue to monitor off abx -07/19 SP Levaquin #5 -07/17 SP Zosyn #7 -07/15 SP Tamiflu #5/5 -2 SP Levaquin #3 -Monitor CBC/BMP, temperatures; trend WBC- if continues to worsen will repeat cultures -aspiration precautions -f/u cocci ab TRACH today Subjective Constitutional: Denies: no symptoms, fever, chills, fatigue, anorexia, drenching sweats, other Allergies: Coded Allergies: No Known Allergies (Unverified , 02/19/17) Subjective Afebrile Objective Vital Signs Last 24 Hour Vital Signs Date Time Temp Pulse Resp B/P (MAP) Pulse Ox O2 Delivery O2 Flow Rate FiO2 07/28/17 12:27 68 18 99 07/28/17 12:00 40 07/28/17 10:40 94 24 99 Facial 40 07/28/17 08:30 91 21 98 Facial 40 07/28/17 08:15 79 124/77 07/28/17 08:00 40 07/28/17 08:00 88 07/28/17 08:00 97.7 85 20 123/74 98 Bi-pap 40 07/28/17 06:40 90 21 98 Facial 40 07/28/17 05:18 79 19 97 Facial 40 07/28/17 04:00 91 07/28/17 04:00 97.9 81 20 124/77 97 Bi-pap 40 07/28/17 04:00 40 07/28/17 02:57 80 20 98 Facial 40 07/28/17 00:44 76 20 98 Facial 40 07/28/17 00:00 98.0 73 18 124/66 96 Bi-pap 40 07/28/17 00:00 73 07/27/17 22:40 74 20 98 Facial 40 07/27/17 21:21 90 21 98 Facial 40 07/27/17 20:00 86 07/27/17 20:00 97.6 80 21 135/78 98 Bi-pap 40 07/27/17 20:00 40 07/27/17 19:06 92 23 98 Facial 40 07/27/17 16:45 88 30 99 Facial 40 07/27/17 16:00 97.5 87 20 136/82 98 Bi-pap 40 07/27/17 16:00 91 07/27/17 16:00 40 07/27/17 15:20 92 25 99 Facial 40 Height (Feet): 5 Height (Inches): 4.10 Weight (Pounds): 250 HEENT: atraumatic Respiratory/Chest: normal breath sounds Cardiovascular: regular rhythm Abdomen: soft, non tender Laboratory Tests Test 07/28/17 03:25 07/28/17 11:35 White Blood Count 5.2 K/UL (4.8-10.8) Red Blood Count 3.19 M/UL (4.20-5.40) L Hemoglobin 9.9 G/DL (12.0-16.0) L Hematocrit 32.5 % (37.0-47.0) L Mean Corpuscular Volume 102 FL (80-99) H Mean Corpuscular Hemoglobin 31.2 PG (27.0-31.0) H Mean Corpuscular Hemoglobin Concent 30.6 G/DL (32.0-36.0) L Red Cell Distribution Width 16.1 % (11.6-14.8) H Platelet Count 164 K/UL (150-450) Mean Platelet Volume 7.6 FL (6.5-10.1) Neutrophils (%) (Auto) 55.4 % (45.0-75.0) Lymphocytes (%) (Auto) 30.2 % (20.0-45.0) Monocytes (%) (Auto) 11.7 % (1.0-10.0) H Eosinophils (%) (Auto) 2.3 % (0.0-3.0) Basophils (%) (Auto) 0.5 % (0.0-2.0) Sodium Level 143 MMOL/L (136-145) Potassium Level 3.4 MMOL/L (3.5-5.1) L Chloride Level 106 MMOL/L (98-107) Carbon Dioxide Level 33 MMOL/L (21-32) H Anion Gap 5 mmol/L (5-15) Blood Urea Nitrogen 12 mg/dL (7-18) Creatinine 0.8 MG/DL (0.55-1.30) Estimat Glomerular Filtration Rate > 60 mL/min (>60) Glucose Level 51 MG/DL (74-106) L Calcium Level 8.8 MG/DL (8.5-10.1) Total Bilirubin 0.2 MG/DL (0.2-1.0) Aspartate Amino Transf (AST/SGOT) 17 U/L (15-37) Alanine Aminotransferase (ALT/SGPT) 15 U/L (12-78) Alkaline Phosphatase 44 U/L (46-116) L Pro-B-Type Natriuretic Peptide 20 pg/mL (0-125) Total Protein 6.3 G/DL (6.4-8.2) L Albumin 2.6 G/DL (3.4-5.0) L Globulin 3.7 g/dL Albumin/Globulin Ratio 0.7 (1.0-2.7) L Prothrombin Time Pending Prothromb Time International Ratio Pending Activated Partial Thromboplast Time Pending Current Medications Medications (Trade) Dose Ordered Sig/Selvin Route PRN Reason Start Time Stop Time Status Last Admin Dose Admin Acetaminophen (Tylenol) 650 mg Q4H PRN ORAL Mild Pain/Temp > 100.5 07/22/17 11:15 08/21/17 11:14 07/28/17 04:29 Acetazolamide (Diamox) 250 mg TWICE A DAY ORAL 07/16/17 18:00 08/15/17 17:59 07/28/17 08:15 Amlodipine Besylate (Norvasc) 5 mg DAILY ORAL 07/16/17 09:00 08/09/17 09:44 07/28/17 08:15 Clonidine HCl (Catapres) 0.1 mg EVERY 6 HOURS PRN ORAL For High Blood Pressure>160 07/15/17 12:00 08/14/17 07:44 Diphenhydramine HCl (Benadryl) 25 mg Q15M PRN IVP Itching 07/28/17 12:15 07/28/17 17:00 Docusate Sodium (Colace) 100 mg TWICE A DAY ORAL 07/15/17 18:00 08/09/17 09:44 07/26/17 08:45 Escitalopram Oxalate (Lexapro) 20 mg DAILY ORAL 07/16/17 09:00 08/14/17 08:59 07/28/17 08:15 Fentanyl Citrate (Sublimaze 100 mcg/2 mL) 25 mcg Q10M PRN IV Moderate Pain (Pain Scale 4-6) 07/28/17 12:15 07/28/17 17:00 Gabapentin (Neurontin) 300 mg THREE TIMES A DAY ORAL 07/27/17 13:00 08/20/17 12:59 07/28/17 12:49 Heparin Sodium (Porcine) (Heparin 5000 units/ml) 5,000 units EVERY 12 HOURS SUBQ 07/15/17 21:00 08/09/17 09:44 07/27/17 08:59 Hydromorphone HCl (Dilaudid) 0.5 mg Q15M PRN IVP Severe Pain (Pain Scale 7-10) 07/28/17 12:15 07/28/17 17:00 Lactated Ringer's 1,000 ml @ 10 mls/hr Q24H IVLG 07/28/17 12:10 07/28/17 14:09 Levetiracetam (Keppra) 500 mg Q12HR ORAL 07/15/17 21:00 08/09/17 09:44 07/28/17 08:16 Midazolam HCl (Versed 2mg/2ml vial) 1 mg Q15M PRN IVP For Anxiety 07/28/17 12:15 07/28/17 17:00 Ondansetron HCl (Zofran) 4 mg Q1H PRN IVP Nausea & Vomiting 07/28/17 12:15 07/28/17 17:00 Potassium Chloride 40 meq/ Sodium Chloride 570 ml @ 142.5 mls/ hr ONCE ONCE IVPB 07/28/17 13:00 07/28/17 16:59 Quetiapine Fumarate (SEROquel) 25 mg BEDTIME ORAL 07/18/17 21:00 08/17/17 20:59 07/27/17 20:54 Theophylline (Paresh-Dur) 200 mg EVERY 12 HOURS ORAL 07/22/17 09:00 08/21/17 08:59 07/28/17 08:16 Tramadol HCl (Ultram) 50 mg Q6H PRN ORAL Moderate Pain (Pain Scale 4-6) 07/25/17 09:00 08/01/17 08:59 07/28/17 08:29 JAYY HARMAN M.D. Jul 28, 2017 13:07
[2017-07-28] MEDS ORDERED: Lidocaine 1% 10mg/ml/Epi 0.005mg/ml 30ml vial INJ ONE (13:11)
[2017-07-28 13:14] LABS: INR 0.9 (0.9-1.1)
--- NOTE | 2017-07-28 14:52 | Brief Operative Note ---
Immediate Post Operative Note Operative Note Pre-op Diagnosis: respiratory insufficiency requiring positive pressure Procedure: Tracheostomy Post-op Diagnosis: same as pre-op Surgeon: jayden Anesthesiologist: malvin Anesthesia: general Specimen: none Complications: none Condition: stable Fluids: see records Estimated Blood Loss: minimal Drains: none Implant(s) used?: Yes - 8F [place] Jul 28, 2017 14:52
[2017-07-28] MEDS ORDERED: Morphine Sulfate 4mg/ml Inj IVP PRN (15:00)
[2017-07-28] MEDS ORDERED: Morphine Sulfate 2mg/ml Inj IVP PRN ×2 (15:00)
[2017-07-28] MEDS: Morphine Sulfate 4mg/ml Inj IVP PRN ×2 (15:58→21:03)
--- NOTE | 2017-07-28 16:46 | 48 Hour Post Anesthesia Eval ---
Post Anesthesia Evaluation Procedure: Tracheostomy Date of Evaluation: Jul 30, 2017 Time of Evaluation: 09:00 Blood Pressure Systolic: 125 0: 63 Pulse Rate: 85 Respiratory Rate: 18 Temperature (Fahrenheit): 98 O2 Sat by Pulse Oximetry: 99 Airway: patent Nausea: No Vomiting: No Pain Intensity: 0 Hydration Status: adequate Mental Status/LOC: patient returned to baseline Post-Anesthesia Complications: none Follow-up care needed: patient intructions given Miller Hawkins M.D. Jul 28, 2017 16:46
[2017-07-28] MEDS: Morphine Sulfate 2mg/ml Inj IVP PRN ×2 (19:56→22:29)
[2017-07-28] MEDS ORDERED: Theophylline ER 100mg ORAL SCH (21:00)
[2017-07-28] MEDS ORDERED: traMADol 50mg tab ORAL PRN (21:00)
--- NOTE | 2017-07-28 23:18 | General Progress Note ---
Assessment/Plan Status: stable Assessment/Plan ASSESSMENT AND RECS: #. Anemia secondary to chronic disease. --> Continue to closely monitor. --> anemia w/u has been ordered and reviewed, no aid noted --> Blood transfusion not required today. Has been stable >7 #. Shortness of breath, related to underlying asthma exacerbation. --> On Levaquin for bacterial bronchitis. Continue per ID service. --> on bipap, pulm following #. Leukocytosis related to underlying steroids. --> Resolved. --> Wbc count WNL #. Asthma exacerbation with infiltrates noted. Continue Tamiflu. #. Elevated bicarb, potentially related to acidosis, retention of CO2. #. Hypoglycemia, potentially related to steroids. #. Seizure disorder, currently stable #. Malnutrition Cdiff negative, bcx neg x4 Subjective Date patient seen: Jul 28, 2017 Constitutional: Denies: no symptoms, chills, diaphoresis, fever, malaise, weakness, other HEENT: Denies: no symptoms, eye pain, blurred vision, tearing, double vision, ear pain, ear discharge, nose pain, nose congestion, throat pain, throat swelling, mouth pain, mouth swelling, other Cardiovascular: Denies: no symptoms, chest pain, edema, irregular heart rate, lightheadedness, palpitations, syncope, other Respiratory: Denies: no symptoms, cough, orthopnea, shortness of breath, SOB with excertion, SOB at rest, sputum, stridor, wheezing, other Gastrointestinal/Abdominal: Denies: no symptoms, abdomen distended, abdominal pain, black stools, tarry stools, blood in stool, constipated, diarrhea, difficulty swallowing, nausea, poor appetite, poor fluid intake, rectal bleeding , vomiting, other Genitourinary: Denies: no symptoms, burning, discharge, frequency, flank pain, hematuria, incontinence, pain, urgency, other Hematologic/Lymphatic: Reports: anemia Allergies: Coded Allergies: No Known Allergies (Unverified , 02/19/17) Subjective No fevers or chills. Remains on bipap. Pending trach. Objective Last 24 Hour Vital Signs Date Time Temp Pulse Resp B/P (MAP) Pulse Ox O2 Delivery O2 Flow Rate FiO2 07/28/17 22:53 103 14 40 07/28/17 22:00 96 20 124/108 100 Mechanical Ventilator 40 07/28/17 21:23 95 29 40 07/28/17 21:00 95 14 124/67 100 Mechanical Ventilator 40 07/28/17 20:00 99.2 84 20 145/76 97 Mechanical Ventilator 40 07/28/17 20:00 40 18 19:24 99 29 40 07/28/17 19:00 91 25 144/76 96 Mechanical Ventilator 40 18 18:00 91 26 144/76 96 Mechanical Ventilator 40 07/28/17 17:13 101 27 40 07/28/17 17:00 102 28 149/101 97 Mechanical Ventilator 40 07/28/17 16:46 85 18 99 07/28/17 16:28 98.9 07/28/17 16:00 40 07/28/17 16:00 98.8 97 26 146/79 96 Mechanical Ventilator 40 07/28/17 16:00 106 07/28/17 15:01 107 18 40 07/28/17 15:00 102 28 157/131 93 Mechanical Ventilator 40 07/28/17 14:30 40 07/28/17 14:30 98.9 108 21 165/91 99 Mechanical Ventilator 40 07/28/17 12:45 91 25 99 Facial 40 07/28/17 12:27 68 18 99 07/28/17 12:00 40 07/28/17 12:00 85 07/28/17 10:40 94 24 99 Facial 40 07/28/17 08:30 91 21 98 Facial 40 07/28/17 08:15 79 124/77 07/28/17 08:00 40 07/28/17 08:00 88 07/28/17 08:00 97.7 85 20 123/74 98 Bi-pap 40 07/28/17 06:40 90 21 98 Facial 40 07/28/17 05:18 79 19 97 Facial 40 07/28/17 04:00 91 07/28/17 04:00 97.9 81 20 124/77 97 Bi-pap 40 07/28/17 04:00 40 07/28/17 02:57 80 20 98 Facial 40 07/28/17 00:44 76 20 98 Facial 40 07/28/17 00:00 98.0 73 18 124/66 96 Bi-pap 40 07/28/17 00:00 73 Intake and Output 07/27/17 07/28/17 19:00 07:00 Intake Total 420 ml 200 ml Balance 420 ml 200 ml Intake Oral 420 ml 200 ml # Voids 4 3 # Bowel Movements 1 Laboratory Tests 07/28/17 03:25: White Blood Count 5.2, Red Blood Count 3.19L, Hemoglobin 9.9L, Hematocrit 32.5L , Mean Corpuscular Volume 102H, Mean Corpuscular Hemoglobin 31.2H, Mean Corpuscular Hemoglobin Concent 30.6L, Red Cell Distribution Width 16.1H, Platelet Count 164, Mean Platelet Volume 7.6, Neutrophils (%) (Auto) 55.4, Lymphocytes (%) (Auto) 30.2, Monocytes (%) (Auto) 11.7H, Eosinophils (%) (Auto) 2.3, Basophils (%) (Auto) 0.5, Sodium Level 143, Potassium Level 3.4L, Chloride Level 106, Carbon Dioxide Level 33H, Anion Gap 5, Blood Urea Nitrogen 12, Creatinine 0.8, Estimat Glomerular Filtration Rate > 60, Glucose Level 51L, Calcium Level 8.8, Total Bilirubin 0.2, Aspartate Amino Transf (AST/SGOT) 17, Alanine Aminotransferase (ALT/SGPT) 15, Alkaline Phosphatase 44L, Pro-B-Type Natriuretic Peptide 20, Total Protein 6.3L, Albumin 2.6L, Globulin 3.7, Albumin/ Globulin Ratio 0.7L 07/28/17 11:35: Prothrombin Time 9.0L, Prothromb Time International Ratio 0.9, Activated Partial Thromboplast Time 27 Height (Feet): 5 Height (Inches): 4.10 Weight (Pounds): 250 General Appearance: no apparent distress Cardiovascular: normal rate, regular rhythm Respiratory/Chest: lungs clear Abdomen: non tender Uche Leon Jul 28, 2017 23:18
[2017-07-29] VITALS (24 sets, daily range): BP systolic 105–144; BP diastolic 52–92
[2017-07-29] MEDS: Morphine Sulfate 4mg/ml Inj IVP PRN ×3 (01:10→15:05)
--- NOTE | 2017-07-29 02:00 | Operative Note - Dictated ---
DATE OF OPERATION: 07/28/2017 PREOPERATIVE DIAGNOSIS: Respiratory insufficiency with positive pressure dependency. POSTOPERATIVE DIAGNOSIS: Respiratory insufficiency with positive pressure dependency. OPERATION PERFORMED: Tracheostomy. ATTENDING SURGEON: West Nur M.D. POWER BRAKE REBUILDER: None. ANESTHESIOLOGIST: Dr. Hawkins. ANESTHESIA: General NOZZLE WORKER. SPECIMENS: None. COMPLICATIONS: None. CONDITION: Stable. FLUIDS: Please see anesthesia records. ESTIMATED BLOOD LOSS: Minimal. COUNTS: Sponge and needle count correct x2. ANTIBIOTICS: A 2 g Ancef IV given one hour prior to cut time. DRAINS: None. IMPLANTS: An 8-Sammarinese Shiley fenestrated tracheostomy. INDICATIONS FOR PROCEDURE: This is a 32-year-old female with history of respiratory failure and hypercapnic respiratory insufficiency requiring BiPAP and positive pressure with episodes of acute exacerbation with potential possibility for necessity for emergent intubation on multiple episodes. During this admission, the patient was evaluated and unfortunately requires positive pressure with persistent hypercapnia. The patient is a risk and has been to the point of near necessity of intubation, which patient declines. Fortunately, the patient has been treated with positive pressure and medical care by nursery manager and Pulmonary team thus far. Unfortunately, she is a very high risk and discussions were had about potential tracheostomy. The patient states that she was not willing to have emergent intubations and not want to be intubated and sedated, but after explaining the details about tracheostomy, the patient thought about it and discussed with the family and decided the tracheostomy is something she would want and expressed desire to proceed with tracheostomy. Risks, benefits, and alternatives were discussed in detail. Tracheostomy was indicated and recommended. Consent was signed for procedure, which is performed today. OPERATIVE NOTE: The patient was taken to the operating room and made comfortable in her hospital bed. Preoperative time-out was taken identifying the patient, procedure, operative staff, and surgical staff. SCDs were placed. A 2 g Ancef intravenous antibiotics were given one hour prior to cut time. No Gamble catheter was inserted. General anesthesia was induced and the patient was intubated. The neck was prepped and draped in the standard surgical fashion. The anatomy was identified and an incision was made 1 to 2 fingerbreadths above the sternal notch. Incision was carried down through the subcutaneous tissue and platysma with electrocautery. The muscle fibers were then split in the midline and the trachea was identified. Once identifying the trachea, the thyroid isthmus was identified as well, unfortunately did not need to be resected, but just retracted cephalad. Once this was complete, the trachea was cleared until the first, second, and third tracheal rings to be identified clearly. A tracheal hook was then placed and the trachea stabilized. A Dvaid flap window was made between the first and second tracheal rings. Upon making the flap, the anesthesiologist slowly began withdrawing the ET tube and when the ET tube reached the superior portion of the flap, an 8-Sammarinese fenestrated Shiley tracheostomy tube was inserted without difficulty. The balloon of the tracheostomy was insufflated and ventilation was performed through the tracheostomy with good volumes and without complication. Following this, the wound was fairly small and required only minimal closure using 2-0 nylon interrupted sutures. Local anesthetic was infiltrated throughout the procedure as necessary. A 3-0 silk ties were used to ligate any superficial veins. The patient tolerated the procedure well. Dressings were placed as well as a trach tie. The patient was then taken to the intensive care unit in awake and alert condition, ventilating well on spontaneous ventilation without complication. West Nur M.D. DR: ZITA JOB#: [id number] CC:
[2017-07-29] MEDS: Morphine Sulfate 2mg/ml Inj IVP PRN ×2 (05:35)
[2017-07-29 06:37] LABS: BASOPHILS % (AUTO) 0.5 % (0.0-2.0); EOSINOPHILS % (AUTO) 0.4 % (0.0-3.0); HEMOGLOBIN 10.8 G/DL (12.0-16.0); LYMPHOCYTES % (AUTO) 9.9 % (20.0-45.0); MEAN CORPUSCULAR VOLUME 100 FL (80-99); MONOCYTES % (AUTO) 9.5 % (1.0-10.0); NEUTROPHILS % (AUTO) 79.6 % (45.0-75.0); PLATELET COUNT 194 K/UL (150-450); RED BLOOD COUNT 3.51 M/UL (4.20-5.40); RED CELL DISTRIBUTION WIDTH 15.5 % (11.6-14.8); WHITE BLOOD COUNT 11.2 K/UL (4.8-10.8)
[2017-07-29 06:52] LABS: ALANINE AMINOTRANSFERASE 16 U/L (12-78); ALBUMIN/GLOBULIN RATIO 0.8 (1.0-2.7); ALKALINE PHOSPHATASE 45 U/L (46-116); ANION GAP 7 mmol/L (5-15); ASPARTATE AMINO TRANSFERASE 17 U/L (15-37); BILIRUBIN,TOTAL 0.3 MG/DL (0.2-1.0); BLOOD UREA NITROGEN 11 mg/dL (7-18); CALCIUM 9.2 MG/DL (8.5-10.1); CARBON DIOXIDE 30 MMOL/L (21-32); CHLORIDE 108 MMOL/L (98-107); PHOSPHORUS 1.5 MG/DL (2.5-4.9); POTASSIUM 3.5 MMOL/L (3.5-5.1); SODIUM 145 MMOL/L (136-145)
--- NOTE | 2017-07-29 07:44 | Pulmonolgy Critical Care Note ---
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 seizure disorder MDD anxiety morbid obesity anemia of chronic disease PLAN OF CARE ICU s/p trach 07/28 vent/ trach care ABG this am stable pulm toilet s/p IV steroids, Theophylline s/p abx Rx ID follows sputum cx and blood cx negative BP management with CCB + Clonidine prn seizure precautions, continue Keppra DVT prophylaxis PT/OT psych eval, psych meds added will need swallow eval and and eval for Passe Turon valve, declining NG tube and will decline G tube RT to start weaning to trach collar as tolerated plan for LIZ transfer if OK with surgery case discussed and evaluated by supervising physician Critical Care - Objective Last 24 Hour Vital Signs Date Time Temp Pulse Resp B/P (MAP) Pulse Ox O2 Delivery O2 Flow Rate FiO2 07/29/17 06:58 92 18 40 07/29/17 06:00 80 14 130/78 100 Mechanical Ventilator 40 07/29/17 05:07 96 14 40 07/29/17 05:00 86 20 144/69 100 Mechanical Ventilator 40 07/29/17 04:00 40 07/29/17 04:00 98.6 96 14 123/70 100 Mechanical Ventilator 40 07/29/17 04:00 96 07/29/17 03:00 98 14 125/70 100 Mechanical Ventilator 40 07/29/17 02:50 96 15 40 07/29/17 02:00 100 14 121/59 100 Mechanical Ventilator 40 07/29/17 01:00 96 20 125/61 100 Mechanical Ventilator 40 07/29/17 00:53 101 15 40 07/29/17 00:00 91 07/29/17 00:00 40 07/29/17 00:00 99.0 92 14 129/70 100 Mechanical Ventilator 40 07/28/17 23:00 89 20 141/89 100 Mechanical Ventilator 40 07/28/17 22:53 103 14 40 07/28/17 22:00 96 20 124/108 100 Mechanical Ventilator 40 07/28/17 21:23 95 29 40 07/28/17 21:00 95 14 124/67 100 Mechanical Ventilator 40 07/28/17 20:00 99.2 84 20 145/76 97 Mechanical Ventilator 40 07/28/17 20:00 40 07/28/17 20:00 84 07/28/17 19:24 99 29 40 07/28/17 19:00 91 25 144/76 96 Mechanical Ventilator 40 07/28/17 18:00 91 26 144/76 96 Mechanical Ventilator 40 07/28/17 17:13 101 27 40 07/28/17 17:00 102 28 149/101 97 Mechanical Ventilator 40 07/28/17 16:46 85 18 99 07/28/17 16:28 98.9 07/28/17 16:00 40 07/28/17 16:00 98.8 97 26 146/79 96 Mechanical Ventilator 40 07/28/17 16:00 106 07/28/17 15:01 107 18 40 07/28/17 15:00 102 28 157/131 93 Mechanical Ventilator 40 07/28/17 14:30 40 07/28/17 14:30 98.9 108 21 165/91 99 Mechanical Ventilator 40 07/28/17 12:45 91 25 99 Facial 40 07/28/17 12:27 68 18 99 07/28/17 12:00 40 07/28/17 12:00 85 07/28/17 10:40 94 24 99 Facial 40 07/28/17 08:30 91 21 98 Facial 40 07/28/17 08:15 79 124/77 07/28/17 08:00 40 07/28/17 08:00 88 07/28/17 08:00 97.7 85 20 123/74 98 Bi-pap 40 Status: somnolent, other - on vent 600-40%-18 Condition: critical HEENT: atraumatic, normocephalic Neck: trach - Shiley#8 Heart: HR/BP stable Abdomen: soft, non-tender - obese, active bowel sounds Accucheck: 119 Critical Care - Subjective ROS Limited/Unobtainable: Yes Interval Events: s/p trach 07/28 mild leukocytosis today, afebrile on vent no signs of respiratory distress low Mg and P Condition: critical, improving IV Access: peripheral EKG Rhythm: Sinus Rhythm FI02: 40 Vent Support Breath Rate: 14 Vent Support Mode: AC Vent Tidal Volume: 600 Sputum Amount: Scant PIP: 35 I&O: Intake and Output 07/28/17 07/29/17 19:00 07:00 Intake Total 427.5 ml 742.5 ml Output Total 300 ml Balance 427.5 ml 442.5 ml IV Total 427.5 ml 722.5 ml Other 20 ml Output Urine Total 300 ml # Voids 3 CXR: 07/29 Placement of tracheostomy. Right-sided ventriculoperitoneal shunt. Ayleen Lees NP ([place]) Jul 29, 2017 07:44
[2017-07-29] MEDS ORDERED: Albuterol/Ipratropium 3ml neb HHN PRN (08:00)
[2017-07-29] MEDS: Heparin 5000 units/ml inj SUBQ SCH ×2 (08:50→21:41)
[2017-07-29] MEDS: Theophylline ER 100mg ORAL SCH ×2 (09:00→21:30)
[2017-07-29] MEDS: Docusate 100mg cap ORAL SCH ×2 (09:00→18:00)
[2017-07-29] MEDS ORDERED: Potassium Phosphate 20 MM in NS 275 ML IV ONE (09:30)
--- NOTE | 2017-07-29 09:31 | Infectious Diseases Prog Note ---
Assessment/Plan Assessment/Plan Asthma exacerbation- r/o Influenza, r/o bacterial bronchitis-possible PNA-; s/p Rx r/o fungal PNA- possibly ANNETTE, ?obesity hypoventilation syndrome contributing BiPAP on/off , C02 retention -s/p Trach 07/28 -CXR 07/24Cardiomegaly with persistent bilateral perihilar hazy opacities, slightly decreased on the right. -CXR: Bilateral diffuse infiltrates versus edema -sp cx normal tristen -HIV 1/2 ab neg, CrAg neg Leukocytosis, mild s/p trach- reactive, post-op -Cdiff 07/17 neg -Bcx Neg x4 -influenza test ordered, never done- treated empirically Plan: - Continue to monitor off abx -07/19 SP Levaquin #5 -07/17 SP Zosyn #7 -07/15 SP Tamiflu #5/5 -2 SP Levaquin #3 -Monitor CBC/BMP, temperatures; trend WBC- if continues to worsen will repeat cultures -aspiration precautions -Trach care -f/u cocci ab Subjective Allergies: Coded Allergies: No Known Allergies (Unverified , 02/19/17) Subjective s/p trach yesterday afebrile mild leukocytosis today Objective Vital Signs Last 24 Hour Vital Signs Date Time Temp Pulse Resp B/P (MAP) Pulse Ox O2 Delivery O2 Flow Rate FiO2 07/29/17 09:05 93 16 40 07/29/17 09:00 94 17 108/68 100 Mechanical Ventilator 40 07/29/17 08:00 92 07/29/17 08:00 99.4 92 17 129/72 99 Mechanical Ventilator 40 07/29/17 08:00 40 07/29/17 07:00 86 15 126/67 100 Mechanical Ventilator 40 07/29/17 07:00 90 15 126/67 100 Mechanical Ventilator 40 07/29/17 06:58 92 18 40 07/29/17 06:00 80 14 130/78 100 Mechanical Ventilator 40 07/29/17 05:07 96 14 40 07/29/17 05:00 86 20 144/69 100 Mechanical Ventilator 40 07/29/17 04:00 40 07/29/17 04:00 98.6 96 14 123/70 100 Mechanical Ventilator 40 07/29/17 04:00 96 07/29/17 03:00 98 14 125/70 100 Mechanical Ventilator 40 07/29/17 02:50 96 15 40 07/29/17 02:00 100 14 121/59 100 Mechanical Ventilator 40 07/29/17 01:00 96 20 125/61 100 Mechanical Ventilator 40 07/29/17 00:53 101 15 40 07/29/17 00:00 91 07/29/17 00:00 40 07/29/17 00:00 99.0 92 14 129/70 100 Mechanical Ventilator 40 07/28/17 23:00 89 20 141/89 100 Mechanical Ventilator 40 07/28/17 22:53 103 14 40 07/28/17 22:00 96 20 124/108 100 Mechanical Ventilator 40 07/28/17 21:23 95 29 40 07/28/17 21:00 95 14 124/67 100 Mechanical Ventilator 40 07/28/17 20:00 99.2 84 20 145/76 97 Mechanical Ventilator 40 07/28/17 20:00 40 07/28/17 20:00 84 07/28/17 19:24 99 29 40 07/28/17 19:00 91 25 144/76 96 Mechanical Ventilator 40 07/28/17 18:00 91 26 144/76 96 Mechanical Ventilator 40 07/28/17 17:13 101 27 40 07/28/17 17:00 102 28 149/101 97 Mechanical Ventilator 40 07/28/17 16:46 85 18 99 07/28/17 16:28 98.9 07/28/17 16:00 40 07/28/17 16:00 98.8 97 26 146/79 96 Mechanical Ventilator 40 07/28/17 16:00 106 07/28/17 15:01 107 18 40 07/28/17 15:00 102 28 157/131 93 Mechanical Ventilator 40 07/28/17 14:30 40 07/28/17 14:30 98.9 108 21 165/91 99 Mechanical Ventilator 40 07/28/17 12:45 91 25 99 Facial 40 07/28/17 12:27 68 18 99 07/28/17 12:00 40 07/28/17 12:00 85 07/28/17 10:40 94 24 99 Facial 40 Height (Feet): 5 Height (Inches): 4.10 Weight (Pounds): 250 Objective Status: somnolent, other - on vent HEENT: atraumatic, normocephalic Neck: trach - Shiley#8 Heart: HR/BP stable Abdomen: soft, non-tender - obese, active bowel sounds EXt: no rashes Laboratory Tests Test 07/28/17 11:35 07/29/17 05:35 07/29/17 08:45 Prothrombin Time 9.0 SEC (9.30-11.50) L Prothromb Time International Ratio 0.9 (0.9-1.1) Activated Partial Thromboplast Time 27 SEC (23-33) White Blood Count 11.2 K/UL (4.8-10.8) #H Red Blood Count 3.51 M/UL (4.20-5.40) L Hemoglobin 10.8 G/DL (12.0-16.0) L Hematocrit 35.0 % (37.0-47.0) L Mean Corpuscular Volume 100 FL (80-99) H Mean Corpuscular Hemoglobin 30.8 PG (27.0-31.0) Mean Corpuscular Hemoglobin Concent 30.8 G/DL (32.0-36.0) L Red Cell Distribution Width 15.5 % (11.6-14.8) H Platelet Count 194 K/UL (150-450) Mean Platelet Volume 7.5 FL (6.5-10.1) Neutrophils (%) (Auto) 79.6 % (45.0-75.0) H Lymphocytes (%) (Auto) 9.9 % (20.0-45.0) L Monocytes (%) (Auto) 9.5 % (1.0-10.0) Eosinophils (%) (Auto) 0.4 % (0.0-3.0) Basophils (%) (Auto) 0.5 % (0.0-2.0) Sodium Level 145 MMOL/L (136-145) Potassium Level 3.5 MMOL/L (3.5-5.1) Chloride Level 108 MMOL/L (98-107) H Carbon Dioxide Level 30 MMOL/L (21-32) Anion Gap 7 mmol/L (5-15) Blood Urea Nitrogen 11 mg/dL (7-18) Creatinine 1.0 MG/DL (0.55-1.30) Estimat Glomerular Filtration Rate > 60 mL/min (>60) Glucose Level 103 MG/DL (74-106) Calcium Level 9.2 MG/DL (8.5-10.1) Phosphorus Level 1.5 MG/DL (2.5-4.9) L Magnesium Level 1.6 MG/DL (1.8-2.4) L Total Bilirubin 0.3 MG/DL (0.2-1.0) Aspartate Amino Transf (AST/SGOT) 17 U/L (15-37) Alanine Aminotransferase (ALT/SGPT) 16 U/L (12-78) Alkaline Phosphatase 45 U/L (46-116) L Total Protein 6.8 G/DL (6.4-8.2) Albumin 3.0 G/DL (3.4-5.0) L Globulin 3.8 g/dL Albumin/Globulin Ratio 0.8 (1.0-2.7) L Arterial Blood pH 7.430 (7.350-7.450) Arterial Blood Partial Pressure CO2 46.5 mmHg (35.0-45.0) H Arterial Blood Partial Pressure O2 115.5 mmHg (75.0-100.0) H Arterial Blood HCO3 30.3 mmol/L (22.0-26.0) H Arterial Blood Oxygen Saturation 98.3 % (92.0-98.0) H Arterial Blood Base Excess 5.3 Lalito Test Positive Current Medications Medications (Trade) Dose Ordered Sig/Selvin Route PRN Reason Start Time Stop Time Status Last Admin Dose Admin Acetaminophen (Tylenol) 650 mg Q4H PRN ORAL Mild Pain/Temp > 100.5 07/28/17 15:30 08/21/17 15:29 Albuterol/ Ipratropium (Albuterol/ Ipratropium) 3 ml Q4H PRN HHN Shortness of Breath 07/29/17 08:00 08/03/17 07:59 Amlodipine Besylate (Norvasc) 5 mg DAILY ORAL 07/29/17 09:00 08/09/17 09:44 Clonidine HCl (Catapres Tab) 0.1 mg Q6H PRN ORAL SBP > 160mmHg 07/28/17 15:30 08/27/17 15:29 Docusate Sodium (Colace) 100 mg TWICE A DAY ORAL 07/28/17 18:00 08/09/17 09:44 Escitalopram Oxalate (Lexapro) 20 mg DAILY ORAL 07/29/17 09:00 08/14/17 08:59 Gabapentin (Neurontin) 300 mg THREE TIMES A DAY ORAL 07/28/17 18:00 08/20/17 12:59 Heparin Sodium (Porcine) (Heparin 5000 units/ml) 5,000 units EVERY 12 HOURS SUBQ 07/28/17 21:00 08/09/17 09:44 07/29/17 08:50 Levetiracetam (Keppra) 500 mg Q12HR ORAL 07/28/17 21:00 08/09/17 09:44 Magnesium Sulfate 100 ml @ 100 mls/hr ONCE ONCE IVPB 07/29/17 09:00 07/29/17 09:59 Morphine Sulfate (Morphine Sulfate) 1 mg Q4H PRN IVP Mild Pain (Pain Scale 1-3) 07/28/17 15:30 08/04/17 15:29 07/29/17 05:35 Morphine Sulfate (Morphine Sulfate) 2 mg Q4H PRN IVP Moderate Pain (Pain Scale 4-6) 07/28/17 15:30 08/04/17 15:29 07/29/17 05:35 Morphine Sulfate (Morphine Sulfate) 4 mg Q4H PRN IVP Severe Pain (Pain Scale 7-10) 07/28/17 15:30 08/04/17 15:29 07/29/17 08:53 Potassium Phosphate 20 mm/ Sodium Chloride 281.6667 ml @ 46.94 mls/hr ONCE ONCE IV 07/29/17 09:30 07/29/17 15:30 Quetiapine Fumarate (SEROquel) 25 mg BEDTIME ORAL 07/28/17 21:00 08/17/17 20:59 Theophylline (Paresh-Dur) 100 mg EVERY 12 HOURS ORAL 07/29/17 09:00 08/28/17 08:59 Magdalena Jones M.D. Jul 29, 2017 09:31
--- NOTE | 2017-07-29 09:47 | Diagnostic Imaging Report ---
Indication: Reason For Exam: DYSPNEA Technique: XRAY Chest 1v Comparison: 07/28/2017. Findings: A tracheostomy has been placed. The heart is normal in size. Lungs are clear. No pleural fluid. There are multiple overlying artifacts. A right-sided ventriculoperitoneal shunt tube is present. Impression: Placement of tracheostomy. Right-sided ventriculoperitoneal shunt. No acute abnormality.
[2017-07-29] MEDS ORDERED: Potassium Chloride 40 MEQ in Sodium Chloride 500ML 550 ML IVPB ONE (13:00)
--- NOTE | 2017-07-29 13:51 | General Progress Note ---
Progress Note Progress Note Surgery: POD #1 s/p trach. doing well. awake. responsive. comfortable. able to talk when balloon down. on vent requiring support still. trach clean and functional. no issues. -trach care and management wean went as tolerated. West Nur Jul 29, 2017 13:51
--- NOTE | 2017-07-29 22:25 | General Progress Note ---
Assessment/Plan Status: stable Assessment/Plan ASSESSMENT AND RECS: #. Anemia secondary to chronic disease. --> Continue to closely monitor. --> anemia w/u has been ordered and reviewed, no aid noted --> Blood transfusion not required today. Has been stable >7 #. Shortness of breath, related to underlying asthma exacerbation. --> On Levaquin for bacterial bronchitis. Continue per ID service. --> S/P trach/vent #. Leukocytosis related to underlying steroids. --> Resolved. --> Wbc count WNL #. Asthma exacerbation with infiltrates noted. Continue Tamiflu. #. Elevated bicarb, potentially related to acidosis, retention of CO2. #. Hypoglycemia, potentially related to steroids. #. Seizure disorder, currently stable #. Malnutrition Cdiff negative, bcx neg x4 Subjective Date patient seen: Jul 29, 2017 Constitutional: Denies: no symptoms, chills, diaphoresis, fever, malaise, weakness, other HEENT: Denies: no symptoms, eye pain, blurred vision, tearing, double vision, ear pain, ear discharge, nose pain, nose congestion, throat pain, throat swelling, mouth pain, mouth swelling, other Cardiovascular: Denies: no symptoms, chest pain, edema, irregular heart rate, lightheadedness, palpitations, syncope, other Respiratory: Denies: no symptoms, cough, orthopnea, shortness of breath, SOB with excertion, SOB at rest, sputum, stridor, wheezing, other Gastrointestinal/Abdominal: Denies: no symptoms, abdomen distended, abdominal pain, black stools, tarry stools, blood in stool, constipated, diarrhea, difficulty swallowing, nausea, poor appetite, poor fluid intake, rectal bleeding , vomiting, other Genitourinary: Denies: no symptoms, burning, discharge, frequency, flank pain, hematuria, incontinence, pain, urgency, other Hematologic/Lymphatic: Reports: anemia Allergies: Coded Allergies: No Known Allergies (Unverified , 02/19/17) Subjective S/P tracheostomy. No complications. No fever. Objective Last 24 Hour Vital Signs Date Time Temp Pulse Resp B/P (MAP) Pulse Ox O2 Delivery O2 Flow Rate FiO2 07/29/17 20:52 93 14 30 07/29/17 20:00 98.9 91 17 121/76 100 Mechanical Ventilator 40 07/29/17 20:00 40 07/29/17 19:09 89 14 40 18 19:00 95 16 126/81 100 Mechanical Ventilator 40 07/29/17 18:00 87 14 116/66 100 Mechanical Ventilator 40 07/29/17 17:00 91 22 112/62 100 Mechanical Ventilator 40 07/29/17 16:56 90 14 40 18 16:00 40 07/29/17 16:00 90 07/29/17 16:00 99.1 88 14 117/67 100 Mechanical Ventilator 40 07/29/17 15:00 104 16 105/52 100 Mechanical Ventilator 40 07/29/17 14:55 95 14 40 07/29/17 14:00 86 14 118/73 100 Mechanical Ventilator 40 07/29/17 13:04 91 14 40 07/29/17 13:00 90 14 119/73 100 Mechanical Ventilator 40 07/29/17 12:00 40 07/29/17 12:00 99.6 93 14 107/66 100 Mechanical Ventilator 40 07/29/17 12:00 94 07/29/17 11:01 105 14 40 07/29/17 11:00 97 14 116/74 100 Mechanical Ventilator 40 07/29/17 10:00 98 15 122/73 100 Mechanical Ventilator 40 07/29/17 09:05 93 16 40 07/29/17 09:00 94 17 108/68 100 Mechanical Ventilator 40 07/29/17 09:00 89 108/68 07/29/17 08:00 92 07/29/17 08:00 99.4 92 17 129/72 99 Mechanical Ventilator 40 07/29/17 08:00 40 07/29/17 07:00 86 15 126/67 100 Mechanical Ventilator 40 07/29/17 07:00 90 15 126/67 100 Mechanical Ventilator 40 07/29/17 06:58 92 18 40 07/29/17 06:00 80 14 130/78 100 Mechanical Ventilator 40 07/29/17 05:07 96 14 40 07/29/17 05:00 86 20 144/69 100 Mechanical Ventilator 40 07/29/17 04:00 40 07/29/17 04:00 98.6 96 14 123/70 100 Mechanical Ventilator 40 07/29/17 04:00 96 07/29/17 03:00 98 14 125/70 100 Mechanical Ventilator 40 07/29/17 02:50 96 15 40 1/20/18 02:00 100 14 121/59 100 Mechanical Ventilator 40 07/29/17 01:00 96 20 125/61 100 Mechanical Ventilator 40 07/29/17 00:53 101 15 40 07/29/17 00:00 91 07/29/17 00:00 40 07/29/17 00:00 99.0 92 14 129/70 100 Mechanical Ventilator 40 07/28/17 23:00 89 20 141/89 100 Mechanical Ventilator 40 07/28/17 22:53 103 14 40 Intake and Output 07/28/17 07/29/17 19:00 07:00 Intake Total 427.5 ml 742.5 ml Output Total 300 ml Balance 427.5 ml 442.5 ml IV Total 427.5 ml 722.5 ml Other 20 ml Output Urine Total 300 ml # Voids 3 Laboratory Tests 07/29/17 05:35: White Blood Count 11.2#H, Red Blood Count 3.51L, Hemoglobin 10.8L, Hematocrit 35.0L, Mean Corpuscular Volume 100H, Mean Corpuscular Hemoglobin 30.8, Mean Corpuscular Hemoglobin Concent 30.8L, Red Cell Distribution Width 15.5H, Platelet Count 194, Mean Platelet Volume 7.5, Neutrophils (%) (Auto) 79.6H, Lymphocytes (%) (Auto) 9.9L, Monocytes (%) (Auto) 9.5, Eosinophils (%) (Auto) 0.4, Basophils (%) (Auto) 0.5, Sodium Level 145, Potassium Level 3.5, Chloride Level 108H, Carbon Dioxide Level 30, Anion Gap 7, Blood Urea Nitrogen 11, Creatinine 1.0, Estimat Glomerular Filtration Rate > 60, Glucose Level 103, Calcium Level 9.2, Phosphorus Level 1.5L, Magnesium Level 1.6L, Total Bilirubin 0.3, Aspartate Amino Transf (AST/SGOT) 17, Alanine Aminotransferase (ALT/SGPT) 16, Alkaline Phosphatase 45L, Total Protein 6.8, Albumin 3.0L, Globulin 3.8, Albumin/Globulin Ratio 0.8L 07/29/17 08:45: Arterial Blood pH 7.430, Arterial Blood Partial Pressure CO2 46.5H, Arterial Blood Partial Pressure O2 115.5H, Arterial Blood HCO3 30.3H, Arterial Blood Oxygen Saturation 98.3H, Arterial Blood Base Excess 5.3, Lalito Test Positive Height (Feet): 5 Height (Inches): 4.10 Weight (Pounds): 250 General Appearance: no apparent distress EENT: normal ENT inspection Respiratory/Chest: decreased breath sounds Uche Leon Jul 29, 2017 22:25
[2017-07-30] VITALS: BP 153/96
[2017-07-30] MEDS ORDERED: Albuterol/Ipratropium 3ml neb HHN PRN
[2017-07-30] MEDS: Morphine Sulfate 2mg/ml Inj IVP PRN ×5 (01:14→21:34)
[2017-07-30] MEDS ORDERED: Morphine Sulfate 2mg/ml Inj IVP PRN (03:30)
[2017-07-30 04:00] VITALS: BP 124/62
[2017-07-30 06:19] LABS: BASOPHILS % (AUTO) 0.2 % (0.0-2.0); EOSINOPHILS % (AUTO) 0.9 % (0.0-3.0); HEMOGLOBIN 10.4 G/DL (12.0-16.0); LYMPHOCYTES % (AUTO) 11.3 % (20.0-45.0); MEAN CORPUSCULAR VOLUME 99 FL (80-99); MONOCYTES % (AUTO) 10.7 % (1.0-10.0); NEUTROPHILS % (AUTO) 76.9 % (45.0-75.0); PLATELET COUNT 210 K/UL (150-450); RED BLOOD COUNT 3.42 M/UL (4.20-5.40); RED CELL DISTRIBUTION WIDTH 16.1 % (11.6-14.8); WHITE BLOOD COUNT 10.7 K/UL (4.8-10.8)
[2017-07-30 06:42] LABS: ANION GAP 11 mmol/L (5-15); BLOOD UREA NITROGEN 11 mg/dL (7-18); CALCIUM 9.1 MG/DL (8.5-10.1); CARBON DIOXIDE 28 MMOL/L (21-32); CHLORIDE 108 MMOL/L (98-107); CREATININE 0.8 MG/DL (0.55-1.30); PHOSPHORUS 2.8 MG/DL (2.5-4.9); POTASSIUM 3.3 MMOL/L (3.5-5.1); SODIUM 147 MMOL/L (136-145)
[2017-07-30 08:00] VITALS: BP 143/77
[2017-07-30] MEDS: Heparin 5000 units/ml inj SUBQ SCH ×2 (08:44→20:32)
[2017-07-30] MEDS: Theophylline ER 100mg ORAL SCH ×2 (09:00→21:00)
[2017-07-30] MEDS: Docusate 100mg cap ORAL SCH ×2 (09:00→17:23)
--- NOTE | 2017-07-30 10:02 | Diagnostic Imaging Report ---
Indication: Reason For Exam: SOB Technique: XRAY Chest 1v Comparison:07/29/2017 Findings: Left perihilar infiltrate is present. There is also some patchy infiltrate in the right lower lung. No other change. Impression: Left perihilar infiltrate. This may represent early pneumonia. Patchy infiltrate or atelectasis in the right lower lung.
--- NOTE | 2017-07-30 11:11 | Pulmonology Progress Note ---
Assessment/Plan Assessment/Plan ASSESSMENT Acute hypercapnic hypoxemic respiratory failure requiring Bipap, recurrent Failure to wean from BiPAP s/p trach 07/28 acute asthma exacerbation -resolved probable obesity hypoventilation syndrome with chronic CO2 retention possible ANNETTE probably aspiration PNA, C[employer] shunt status seizure disorder MDD anxiety morbid obesity anemia of chronic disease PLAN OF CARE ILZ s/p trach 07/28 vent/ trach care ABG this am stable pulm toilet s/p IV steroids, Theophylline s/p abx Rx ID follows sputum cx and blood cx negative BP management with CCB + Clonidine prn seizure precautions, continue Keppra DVT prophylaxis PT/OT psych eval, psych meds added will need swallow eval and and eval for Passe Vesta valve, declining NG tube and will decline G tube RT to start weaning to trach collar as tolerated replace K, start gentle IVF while NPO case discussed and evaluated by supervising physician Subjective Allergies: Coded Allergies: No Known Allergies (Unverified , 02/19/17) Subjective s/p trach transferred to [facility] ABG stable refusing NGT K-33, Na-[id number] Objective Last 24 Hour Vital Signs Date Time Temp Pulse Resp B/P (MAP) Pulse Ox O2 Delivery O2 Flow Rate FiO2 07/30/17 09:15 87 16 30 07/30/17 08:00 87 07/30/17 08:00 30 07/30/17 07:21 88 18 30 07/30/17 05:19 90 19 30 07/30/17 04:00 98.5 82 14 124/62 99 Mechanical Ventilator 40 07/30/17 04:00 30 07/30/17 04:00 98.5 82 14 124/62 99 Mechanical Ventilator 40 07/30/17 04:00 83 07/30/17 03:23 88 19 30 07/30/17 01:44 98.9 07/30/17 01:15 86 16 30 07/30/17 00:00 84 07/30/17 00:00 99.0 89 14 153/96 99 Mechanical Ventilator 40 07/30/17 00:00 30 07/29/17 23:18 91 14 30 07/29/17 23:00 86 14 132/92 99 Mechanical Ventilator 40 07/29/17 22:00 86 14 132/92 100 Mechanical Ventilator 40 07/29/17 21:00 88 15 134/89 100 Mechanical Ventilator 40 07/29/17 21:00 30 07/29/17 20:52 93 14 30 07/29/17 20:00 88 07/29/17 20:00 98.9 91 17 121/76 100 Mechanical Ventilator 40 07/29/17 20:00 40 07/29/17 19:09 89 14 40 07/29/17 19:00 95 16 126/81 100 Mechanical Ventilator 40 07/29/17 18:00 87 14 116/66 100 Mechanical Ventilator 40 07/29/17 17:00 91 22 112/62 100 Mechanical Ventilator 40 07/29/17 16:56 90 14 40 07/29/17 16:00 40 07/29/17 16:00 90 07/29/17 16:00 99.1 88 14 117/67 100 Mechanical Ventilator 40 07/29/17 15:00 104 16 105/52 100 Mechanical Ventilator 40 07/29/17 14:55 95 14 40 07/29/17 14:00 86 14 118/73 100 Mechanical Ventilator 40 07/29/17 13:04 91 14 40 07/29/17 13:00 90 14 119/73 100 Mechanical Ventilator 40 07/29/17 12:00 40 07/29/17 12:00 99.6 93 14 107/66 100 Mechanical Ventilator 40 07/29/17 12:00 94 Intake and Output 07/29/17 07/30/17 19:00 07:00 Intake Total 287.76 ml Output Total 230 ml 300 ml Balance 57.76 ml -300 ml IV Total 287.76 ml Output Urine Total 230 ml 300 ml Objective General Appearance: awake, responsive , on vent AC 600-30%-18 , morbidly obese AA female HEENT: normocephalic, anicteric, Neck: Shiley #8 Respiratory/Chest: Cardiovascular: normal rate, SR on tele , no JVD Abdomen: soft, non tender - obese Neurologic/Psychiatric: awake, responsive Laboratory Tests 07/30/17 05:10: White Blood Count 10.7, Red Blood Count 3.42L, Hemoglobin 10.4L, Hematocrit 34.0L, Mean Corpuscular Volume 99, Mean Corpuscular Hemoglobin 30.4, Mean Corpuscular Hemoglobin Concent 30.6L, Red Cell Distribution Width 16.1H, Platelet Count 210, Mean Platelet Volume 7.8, Neutrophils (%) (Auto) 76.9H, Lymphocytes (%) (Auto) 11.3L, Monocytes (%) (Auto) 10.7H, Eosinophils (%) (Auto ) 0.9, Basophils (%) (Auto) 0.2, Sodium Level 147H, Potassium Level 3.3L, Chloride Level 108H, Carbon Dioxide Level 28, Anion Gap 11, Blood Urea Nitrogen 11, Creatinine 0.8, Estimat Glomerular Filtration Rate > 60, Glucose Level 88, Calcium Level 9.1, Phosphorus Level 2.8, Magnesium Level 2.0 07/30/17 07:21: Arterial Blood pH 7.390, Arterial Blood Partial Pressure CO2 47.0H, Arterial Blood Partial Pressure O2 96.1, Arterial Blood HCO3 27.8H, Arterial Blood Oxygen Saturation 96.9, Arterial Blood Base Excess 2.3, Lalito Test Positive Current Medications Medications (Trade) Dose Ordered Sig/Selvin Route PRN Reason Start Time Stop Time Status Last Admin Dose Admin Acetaminophen (Tylenol) 650 mg Q4H PRN ORAL Mild Pain/Temp > 100.5 07/30/17 03:30 08/21/17 15:29 Albuterol/ Ipratropium (Albuterol/ Ipratropium) 3 ml Q4H PRN HHN Shortness of Breath 07/30/17 00:00 08/03/17 07:59 Amlodipine Besylate (Norvasc) 5 mg DAILY ORAL 07/30/17 09:00 08/09/17 09:44 Clonidine HCl (Catapres Tab) 0.1 mg Q6H PRN ORAL SBP > 160mmHg 07/30/17 03:30 08/27/17 15:29 Docusate Sodium (Colace) 100 mg TWICE A DAY ORAL 07/30/17 09:00 08/09/17 09:44 Escitalopram Oxalate (Lexapro) 20 mg DAILY ORAL 07/30/17 09:00 08/14/17 08:59 Gabapentin (Neurontin) 300 mg THREE TIMES A DAY ORAL 07/30/17 09:00 08/20/17 12:59 Heparin Sodium (Porcine) (Heparin 5000 units/ml) 5,000 units EVERY 12 HOURS SUBQ 07/30/17 09:00 08/09/17 09:44 07/30/17 08:44 Levetiracetam (Keppra) 500 mg Q12HR ORAL 07/30/17 09:00 08/09/17 09:44 Morphine Sulfate (Morphine Sulfate) 1 mg Q4H PRN IVP Mild Pain (Pain Scale 1-3) 07/30/17 03:30 08/04/17 15:29 Morphine Sulfate (Morphine Sulfate) 2 mg Q4H PRN IVP Moderate Pain (Pain Scale 4-6) 07/30/17 03:30 08/04/17 15:29 07/30/17 08:42 Morphine Sulfate (Morphine Sulfate) 4 mg Q4H PRN IVP Severe Pain (Pain Scale 7-10) 07/30/17 03:30 08/04/17 15:29 Quetiapine Fumarate (SEROquel) 25 mg BEDTIME ORAL 07/30/17 21:00 08/17/17 20:59 Theophylline (Paresh-Dur) 100 mg EVERY 12 HOURS ORAL 07/30/17 09:00 08/28/17 08:59 [facility] townshipAyleen Goff NP Jul 30, 2017 11:11
[2017-07-30 12:00] VITALS: BP 134/67
[2017-07-30] MEDS ORDERED: Potassium Chloride 20 MEQ in NS 275 ML IVPB ONE (13:00)
--- NOTE | 2017-07-30 13:25 | General Progress Note ---
Progress Note Progress Note Surgery: doing well. comfortable. dressings removed. trach clean, functional, intact. still requiring vent support -trach care -wean vent as tolerated -okay to start oral diet [place] Jul 30, 2017 13:25
[2017-07-30 16:00] VITALS: BP 141/78
[2017-07-30 20:00] VITALS: BP 110/60
--- NOTE | 2017-07-30 23:20 | General Progress Note ---
Assessment/Plan Status: stable Assessment/Plan ASSESSMENT AND RECS: #. Anemia secondary to chronic disease. --> Continue to trend cbc daily. --> anemia w/u reviewed. --> Blood transfusion not required today. Has been stable >7 #. Shortness of breath, related to underlying asthma exacerbation. --> On Levaquin for bacterial bronchitis. Continue per ID service. --> S/P trach/vent #. Leukocytosis related to underlying steroids. --> Resolved. --> Wbc count WNL #. Asthma exacerbation with infiltrates noted. Continue Tamiflu. #. Elevated bicarb, potentially related to acidosis, retention of CO2. #. Hypoglycemia, potentially related to steroids. #. Seizure disorder, currently stable #. Malnutrition Cdiff negative, bcx neg x4 Subjective Date patient seen: Jul 30, 2017 Constitutional: Denies: no symptoms, chills, diaphoresis, fever, malaise, weakness, other HEENT: Denies: no symptoms, eye pain, blurred vision, tearing, double vision, ear pain, ear discharge, nose pain, nose congestion, throat pain, throat swelling, mouth pain, mouth swelling, other Cardiovascular: Denies: no symptoms, chest pain, edema, irregular heart rate, lightheadedness, palpitations, syncope, other Respiratory: Denies: no symptoms, cough, orthopnea, shortness of breath, SOB with excertion, SOB at rest, sputum, stridor, wheezing, other Gastrointestinal/Abdominal: Denies: no symptoms, abdomen distended, abdominal pain, black stools, tarry stools, blood in stool, constipated, diarrhea, difficulty swallowing, nausea, poor appetite, poor fluid intake, rectal bleeding , vomiting, other Genitourinary: Denies: no symptoms, burning, discharge, frequency, flank pain, hematuria, incontinence, pain, urgency, other Hematologic/Lymphatic: Reports: anemia Allergies: Coded Allergies: No Known Allergies (Unverified , 02/19/17) Subjective On trach/vent. Feeling better today. No major events. Objective Last 24 Hour Vital Signs Date Time Temp Pulse Resp B/P (MAP) Pulse Ox O2 Delivery O2 Flow Rate FiO2 07/30/17 23:07 85 14 30 07/30/17 21:26 85 14 30 07/30/17 20:00 30 07/30/17 20:00 91 07/30/17 20:00 98.0 89 14 110/60 100 Mechanical Ventilator 30 07/30/17 19:20 96 14 30 07/30/17 16:41 92 14 30 07/30/17 16:00 86 07/30/17 16:00 30 07/30/17 16:00 99.1 92 14 141/78 98 Mechanical Ventilator 40 07/30/17 14:51 88 18 30 07/30/17 13:26 86 16 30 07/30/17 12:00 99.7 96 14 134/67 99 Mechanical Ventilator 40 07/30/17 12:00 87 07/30/17 12:00 30 07/30/17 11:22 89 16 30 07/30/17 09:15 87 16 30 07/30/17 08:00 87 07/30/17 08:00 30 07/30/17 08:00 99.3 93 14 143/77 99 Mechanical Ventilator 40 07/30/17 07:21 88 18 30 07/30/17 05:19 90 19 30 07/30/17 04:00 98.5 82 14 124/62 99 Mechanical Ventilator 40 07/30/17 04:00 30 07/30/17 04:00 98.5 82 14 124/62 99 Mechanical Ventilator 40 07/30/17 04:00 83 07/30/17 03:23 88 19 30 07/30/17 01:44 98.9 07/30/17 01:15 86 16 30 07/30/17 00:00 84 07/30/17 00:00 99.0 89 14 153/96 99 Mechanical Ventilator 40 07/30/17 00:00 30 Intake and Output 07/29/17 07/30/17 19:00 07:00 Intake Total 287.76 ml Output Total 230 ml 300 ml Balance 57.76 ml -300 ml IV Total 287.76 ml Output Urine Total 230 ml 300 ml Laboratory Tests 07/30/17 05:10: White Blood Count 10.7, Red Blood Count 3.42L, Hemoglobin 10.4L, Hematocrit 34.0L, Mean Corpuscular Volume 99, Mean Corpuscular Hemoglobin 30.4, Mean Corpuscular Hemoglobin Concent 30.6L, Red Cell Distribution Width 16.1H, Platelet Count 210, Mean Platelet Volume 7.8, Neutrophils (%) (Auto) 76.9H, Lymphocytes (%) (Auto) 11.3L, Monocytes (%) (Auto) 10.7H, Eosinophils (%) (Auto ) 0.9, Basophils (%) (Auto) 0.2, Sodium Level 147H, Potassium Level 3.3L, Chloride Level 108H, Carbon Dioxide Level 28, Anion Gap 11, Blood Urea Nitrogen 11, Creatinine 0.8, Estimat Glomerular Filtration Rate > 60, Glucose Level 88, Calcium Level 9.1, Phosphorus Level 2.8, Magnesium Level 2.0 07/30/17 07:21: Arterial Blood pH 7.390, Arterial Blood Partial Pressure CO2 47.0H, Arterial Blood Partial Pressure O2 96.1, Arterial Blood HCO3 27.8H, Arterial Blood Oxygen Saturation 96.9, Arterial Blood Base Excess 2.3, Lalito Test Positive Height (Feet): 5 Height (Inches): 4.10 Weight (Pounds): 250 General Appearance: no apparent distress EENT: normal ENT inspection Respiratory/Chest: decreased breath sounds Uche eLon Jul 30, 2017 23:20
[2017-07-31] VITALS: BP 140/89
[2017-07-31] MEDS: Morphine Sulfate 2mg/ml Inj IVP PRN ×5 (02:53→21:06)
[2017-07-31 04:00] VITALS: BP 120/68
[2017-07-31 07:00] LABS: ANION GAP 9 mmol/L (5-15); BLOOD UREA NITROGEN 7 mg/dL (7-18); CALCIUM 8.6 MG/DL (8.5-10.1); CARBON DIOXIDE 27 MMOL/L (21-32); CHLORIDE 100 MMOL/L (98-107); CREATININE 0.7 MG/DL (0.55-1.30); SODIUM 136 MMOL/L (136-145)
[2017-07-31 07:13] LABS: BASOPHILS % (AUTO) 0.6 % (0.0-2.0); LYMPHOCYTES % (AUTO) 16.5 % (20.0-45.0); MEAN CORPUSCULAR VOLUME 97 FL (80-99); MONOCYTES % (AUTO) 9.7 % (1.0-10.0); NEUTROPHILS % (AUTO) 72.2 % (45.0-75.0); PLATELET COUNT 188 K/UL (150-450); RED CELL DISTRIBUTION WIDTH 15.6 % (11.6-14.8); WHITE BLOOD COUNT 9.4 K/UL (4.8-10.8)
[2017-07-31 08:00] VITALS: BP 147/91
[2017-07-31] MEDS: Docusate 100mg cap ORAL SCH ×2 (09:00→16:55)
[2017-07-31] MEDS: Heparin 5000 units/ml inj SUBQ SCH ×2 (11:39→21:07)
--- NOTE | 2017-07-31 11:47 | Infectious Diseases Prog Note ---
Assessment/Plan Assessment/Plan A: Asthma exacerbation- r/o Influenza, r/o bacterial bronchitis-possible PNA-; s/p Rx r/o fungal PNA- possibly ANNETTE, ?obesity hypoventilation syndrome contributing BiPAP on/off , C02 retention -CXR 07/24Cardiomegaly with persistent bilateral perihilar hazy opacities, slightly decreased on the right. -CXR: Bilateral diffuse infiltrates versus edema -sp cx normal tristen -HIV 07/11 ab neg, CrAg neg Leukocytosis, SP -Cdiff 07/17 neg -Bcx Neg x4 -influenza test ordered, never done- treated empirically Plan: - Continue to monitor off abx -07/19 SP Levaquin #5 -07/17 SP Zosyn #7 -07/15 SP Tamiflu #5/5 -2 SP Levaquin #3 -Monitor CBC/BMP, temperatures; trend WBC- if continues to worsen will repeat cultures -aspiration precautions -f/u cocci ab TRACH today Subjective Allergies: Coded Allergies: No Known Allergies (Unverified , 02/19/17) Subjective Afebrile Objective Vital Signs Last 24 Hour Vital Signs Date Time Temp Pulse Resp B/P (MAP) Pulse Ox O2 Delivery O2 Flow Rate FiO2 07/31/17 09:27 85 14 30 07/31/17 08:00 98.2 86 14 147/91 99 Mechanical Ventilator 30 07/31/17 08:00 30 07/31/17 06:31 76 14 30 07/31/17 05:00 81 15 30 07/31/17 04:00 79 07/31/17 04:00 30 07/31/17 04:00 98.2 84 14 120/68 100 Mechanical Ventilator 30 07/31/17 03:05 77 14 30 07/31/17 00:45 89 14 30 07/31/17 00:00 98.2 90 14 140/89 100 Mechanical Ventilator 07/31/17 00:00 30 07/31/17 00:00 83 07/30/17 23:07 85 14 30 07/30/17 21:26 85 14 30 07/30/17 20:00 30 07/30/17 20:00 91 07/30/17 20:00 98.0 89 14 110/60 100 Mechanical Ventilator 30 07/30/17 19:20 96 14 30 07/30/17 16:41 92 14 30 07/30/17 16:00 86 07/30/17 16:00 30 07/30/17 16:00 99.1 92 14 141/78 98 Mechanical Ventilator 40 07/30/17 14:51 88 18 30 07/30/17 13:26 86 16 30 07/30/17 12:00 99.7 96 14 134/67 99 Mechanical Ventilator 40 07/30/17 12:00 87 07/30/17 12:00 30 Height (Feet): 5 Height (Inches): 4.10 Weight (Pounds): 250 Laboratory Tests Test 07/31/17 05:50 White Blood Count 9.4 K/UL (4.8-10.8) Red Blood Count 3.30 M/UL (4.20-5.40) L Hemoglobin 10.0 G/DL (12.0-16.0) L Hematocrit 32.0 % (37.0-47.0) L Mean Corpuscular Volume 97 FL (80-99) Mean Corpuscular Hemoglobin 30.3 PG (27.0-31.0) Mean Corpuscular Hemoglobin Concent 31.2 G/DL (32.0-36.0) L Red Cell Distribution Width 15.6 % (11.6-14.8) H Platelet Count 188 K/UL (150-450) Mean Platelet Volume 7.4 FL (6.5-10.1) Neutrophils (%) (Auto) 72.2 % (45.0-75.0) Lymphocytes (%) (Auto) 16.5 % (20.0-45.0) L Monocytes (%) (Auto) 9.7 % (1.0-10.0) Eosinophils (%) (Auto) 1.0 % (0.0-3.0) Basophils (%) (Auto) 0.6 % (0.0-2.0) Sodium Level 136 MMOL/L (136-145) Potassium Level 3.0 MMOL/L (3.5-5.1) L Chloride Level 100 MMOL/L (98-107) Carbon Dioxide Level 27 MMOL/L (21-32) Anion Gap 9 mmol/L (5-15) Blood Urea Nitrogen 7 mg/dL (7-18) Creatinine 0.7 MG/DL (0.55-1.30) Estimat Glomerular Filtration Rate > 60 mL/min (>60) Glucose Level 90 MG/DL (74-106) Calcium Level 8.6 MG/DL (8.5-10.1) Current Medications Medications (Trade) Dose Ordered Sig/Selvin Route PRN Reason Start Time Stop Time Status Last Admin Dose Admin Acetaminophen (Tylenol) 650 mg Q4H PRN ORAL Mild Pain/Temp > 100.5 07/30/17 03:30 08/21/17 15:29 Albuterol/ Ipratropium (Albuterol/ Ipratropium) 3 ml Q4H PRN HHN Shortness of Breath 07/30/17 00:00 08/03/17 07:59 Amlodipine Besylate (Norvasc) 5 mg DAILY ORAL 07/30/17 09:00 08/09/17 09:44 Clonidine HCl (Catapres Tab) 0.1 mg Q6H PRN ORAL SBP > 160mmHg 07/30/17 03:30 08/27/17 15:29 Dextrose 1,000 ml @ 50 mls/hr Q20H IV 07/30/17 11:45 08/29/17 11:44 07/31/17 06:35 Docusate Sodium (Colace) 100 mg TWICE A DAY ORAL 07/30/17 09:00 08/09/17 09:44 Escitalopram Oxalate (Lexapro) 20 mg DAILY ORAL 07/30/17 09:00 08/14/17 08:59 Gabapentin (Neurontin) 300 mg THREE TIMES A DAY ORAL 07/30/17 09:00 08/20/17 12:59 Heparin Sodium (Porcine) (Heparin 5000 units/ml) 5,000 units EVERY 12 HOURS SUBQ 07/30/17 09:00 08/09/17 09:44 07/31/17 11:39 Levetiracetam (Keppra) 500 mg Q12HR ORAL 07/30/17 09:00 08/09/17 09:44 Morphine Sulfate (Morphine Sulfate) 1 mg Q4H PRN IVP Mild Pain (Pain Scale 1-3) 07/30/17 03:30 08/04/17 15:29 Morphine Sulfate (Morphine Sulfate) 2 mg Q4H PRN IVP Moderate Pain (Pain Scale 4-6) 07/30/17 03:30 08/04/17 15:29 07/31/17 11:35 Morphine Sulfate (Morphine Sulfate) 4 mg Q4H PRN IVP Severe Pain (Pain Scale 7-10) 07/30/17 03:30 08/04/17 15:29 Quetiapine Fumarate (SEROquel) 25 mg BEDTIME ORAL 07/30/17 21:00 08/17/17 20:59 Theophylline (Paresh-Dur) 100 mg EVERY 12 HOURS ORAL 07/30/17 09:00 08/28/17 08:59 JAYY HARMAN M.D. Jul 31, 2017 11:46
--- NOTE | 2017-07-31 11:49 | Pulmonology Progress Note ---
Assessment/Plan Problems: (1) Acute hypercapnic respiratory failure (2) Asthma exacerbation (3) Aspiration pneumonia (4) Ventriculo-peritoneal shunt status Assessment/Plan Respiratory: monitor respiratory rate, adjust FIO2, CXR Cardiac: continue to monitor HR/BP Renal: F/U I&O, check electrolytes Infectious Disease: check cultures Gastrointestinal: hold feedings, other - awaiting swallow study Endocrine: check TSH Hematologic: monitor H/H, transfuse if hgb<8.5 Neurologic: PRN Ativan, PRN Morphine, keep patient comfortable Prophylaxis: Protonix Disposition: keep in ICU Notes Reviewed: cardio, renal Discussed with: consultants, correctional casework specialist Subjective ROS Limited/Unobtainable: No Constitutional: Reports: no symptoms HEENT: Repors: no symptoms Respiratory: Reports: no symptoms Cardiovascular: Reports: no symptoms Allergies: Coded Allergies: No Known Allergies (Unverified , 02/19/17) Objective Last 24 Hour Vital Signs Date Time Temp Pulse Resp B/P (MAP) Pulse Ox O2 Delivery O2 Flow Rate FiO2 07/31/17 11:03 100 26 30 07/31/17 09:27 85 14 30 07/31/17 08:00 98.2 86 14 147/91 99 Mechanical Ventilator 30 07/31/17 08:00 30 07/31/17 06:31 76 14 30 07/31/17 05:00 81 15 30 07/31/17 04:00 79 07/31/17 04:00 30 07/31/17 04:00 98.2 84 14 120/68 100 Mechanical Ventilator 30 07/31/17 03:05 77 14 30 07/31/17 00:45 89 14 30 07/31/17 00:00 98.2 90 14 140/89 100 Mechanical Ventilator 30 07/31/17 00:00 30 07/31/17 00:00 83 07/30/17 23:07 85 14 30 07/30/17 21:26 85 14 30 07/30/17 20:00 30 07/30/17 20:00 91 07/30/17 20:00 98.0 89 14 110/60 100 Mechanical Ventilator 30 07/30/17 19:20 96 14 30 07/30/17 16:41 92 14 30 07/30/17 16:00 86 07/30/17 16:00 30 07/30/17 16:00 99.1 92 14 141/78 98 Mechanical Ventilator 40 07/30/17 14:51 88 18 30 07/30/17 13:26 86 16 30 07/30/17 12:00 99.7 96 14 134/67 99 Mechanical Ventilator 40 07/30/17 12:00 87 07/30/17 12:00 30 Intake and Output 07/30/17 07/31/17 19:00 07:00 Intake Total 350 ml 575 ml Output Total 510 ml 450 ml Balance -160 ml 125 ml IV Total 350 ml 575 ml Output Urine Total 510 ml 450 ml # Bowel Movements 1 Objective Lines, tubes and drains: peripheral HEENT: normocephalic Neck: non-tender, normal alignment, supple Respiratory/Chest: chest wall non-tender, crackles/rales, rhonchi - left, rhonchi - right Cardiovascular/Chest: normal peripheral pulses, normal rate Abdomen: normal bowel sounds, non tender Genitourinary/Rectal: normal genital exam, normal rectal exam, normal prostate exam Extremities: normal range of motion Laboratory Tests 07/31/17 05:50: White Blood Count 9.4, Red Blood Count 3.30L, Hemoglobin 10.0L, Hematocrit 32.0L , Mean Corpuscular Volume 97, Mean Corpuscular Hemoglobin 30.3, Mean Corpuscular Hemoglobin Concent 31.2L, Red Cell Distribution Width 15.6H, Platelet Count 188, Mean Platelet Volume 7.4, Neutrophils (%) (Auto) 72.2, Lymphocytes (%) (Auto) 16.5L, Monocytes (%) (Auto) 9.7, Eosinophils (%) (Auto) 1.0, Basophils (%) (Auto) 0.6, Sodium Level 136, Potassium Level 3.0L, Chloride Level 100, Carbon Dioxide Level 27, Anion Gap 9, Blood Urea Nitrogen 7, Creatinine 0.7, Estimat Glomerular Filtration Rate > 60, Glucose Level 90, Calcium Level 8.6 Current Medications Medications (Trade) Dose Ordered Sig/Selvin Route PRN Reason Start Time Stop Time Status Last Admin Dose Admin Acetaminophen (Tylenol) 650 mg Q4H PRN ORAL Mild Pain/Temp > 100.5 07/30/17 03:30 08/21/17 15:29 Albuterol/ Ipratropium (Albuterol/ Ipratropium) 3 ml Q4H PRN HHN Shortness of Breath 07/30/17 00:00 08/03/17 07:59 Amlodipine Besylate (Norvasc) 5 mg DAILY ORAL 07/30/17 09:00 08/09/17 09:44 Clonidine HCl (Catapres Tab) 0.1 mg Q6H PRN ORAL SBP > 160mmHg 07/30/17 03:30 08/27/17 15:29 Dextrose 1,000 ml @ 50 mls/hr Q20H IV 07/30/17 11:45 08/29/17 11:44 07/31/17 06:35 Docusate Sodium (Colace) 100 mg TWICE A DAY ORAL 07/30/17 09:00 08/09/17 09:44 Escitalopram Oxalate (Lexapro) 20 mg DAILY ORAL 07/30/17 09:00 08/14/17 08:59 Gabapentin (Neurontin) 300 mg THREE TIMES A DAY ORAL 07/30/17 09:00 08/20/17 12:59 Heparin Sodium (Porcine) (Heparin 5000 units/ml) 5,000 units EVERY 12 HOURS SUBQ 07/30/17 09:00 08/09/17 09:44 07/31/17 11:39 Levetiracetam (Keppra) 500 mg Q12HR ORAL 07/30/17 09:00 08/09/17 09:44 Morphine Sulfate (Morphine Sulfate) 1 mg Q4H PRN IVP Mild Pain (Pain Scale 1-3) 07/30/17 03:30 08/04/17 15:29 Morphine Sulfate (Morphine Sulfate) 2 mg Q4H PRN IVP Moderate Pain (Pain Scale 4-6) 07/30/17 03:30 08/04/17 15:29 07/31/17 11:35 Morphine Sulfate (Morphine Sulfate) 4 mg Q4H PRN IVP Severe Pain (Pain Scale 7-10) 07/30/17 03:30 08/04/17 15:29 Quetiapine Fumarate (SEROquel) 25 mg BEDTIME ORAL 07/30/17 21:00 08/17/17 20:59 Theophylline (Paresh-Dur) 100 mg EVERY 12 HOURS ORAL 07/30/17 09:00 08/28/17 08:59 CRISTINA BRAMBILA Jul 31, 2017 11:49
[2017-07-31 12:00] VITALS: BP 155/70
--- NOTE | 2017-07-31 12:50 | General Progress Note ---
Assessment/Plan Status: stable Assessment/Plan ASSESSMENT AND RECS: #. Anemia secondary to chronic disease. --> anemia w/u reviewed. --> Blood transfusion not required today. --> Has been stable >7. Cont trending cbc daily #. Shortness of breath, related to underlying asthma exacerbation. --> On Levaquin for bacterial bronchitis. Continue per ID service. --> S/P trach/vent #. Leukocytosis related to underlying steroids. --> Resolved. --> Wbc count WNL #. Asthma exacerbation with infiltrates noted. Continue Tamiflu. #. Elevated bicarb, potentially related to acidosis, retention of CO2. #. Hypoglycemia, potentially related to steroids. #. Seizure disorder, currently stable #. Malnutrition Cdiff negative, bcx neg x4 Subjective Date patient seen: Jul 31, 2017 Constitutional: Denies: no symptoms, chills, diaphoresis, fever, malaise, weakness, other HEENT: Denies: no symptoms, eye pain, blurred vision, tearing, double vision, ear pain, ear discharge, nose pain, nose congestion, throat pain, throat swelling, mouth pain, mouth swelling, other Cardiovascular: Denies: no symptoms, chest pain, edema, irregular heart rate, lightheadedness, palpitations, syncope, other Respiratory: Denies: no symptoms, cough, orthopnea, shortness of breath, SOB with excertion, SOB at rest, sputum, stridor, wheezing, other Gastrointestinal/Abdominal: Denies: no symptoms, abdomen distended, abdominal pain, black stools, tarry stools, blood in stool, constipated, diarrhea, difficulty swallowing, nausea, poor appetite, poor fluid intake, rectal bleeding , vomiting, other Genitourinary: Denies: no symptoms, burning, discharge, frequency, flank pain, hematuria, incontinence, pain, urgency, other Allergies: Coded Allergies: No Known Allergies (Unverified , 02/19/17) Subjective Remains on trach. No fever or chills. H/H stable. Objective Last 24 Hour Vital Signs Date Time Temp Pulse Resp B/P (MAP) Pulse Ox O2 Delivery O2 Flow Rate FiO2 07/31/17 12:07 97.6 07/31/17 12:00 91 07/31/17 11:42 92 28 30 07/31/17 11:03 100 26 30 07/31/17 09:27 85 14 30 07/31/17 09:00 89 147/81 07/31/17 08:00 98.2 86 14 147/91 99 Mechanical Ventilator 30 07/31/17 08:00 30 07/31/17 06:31 76 14 30 07/31/17 05:00 81 15 30 07/31/17 04:00 79 07/31/17 04:00 30 07/31/17 04:00 98.2 84 14 120/68 100 Mechanical Ventilator 30 07/31/17 03:05 77 14 30 07/31/17 00:45 89 14 30 07/31/17 00:00 98.2 90 14 140/89 100 Mechanical Ventilator 30 07/31/17 00:00 30 07/31/17 00:00 83 07/30/17 23:07 85 14 30 07/30/17 21:26 85 14 30 07/30/17 20:00 30 07/30/17 20:00 91 07/30/17 20:00 98.0 89 14 110/60 100 Mechanical Ventilator 30 07/30/17 19:20 96 14 30 07/30/17 16:41 92 14 30 07/30/17 16:00 86 07/30/17 16:00 30 07/30/17 16:00 99.1 92 14 141/78 98 Mechanical Ventilator 40 07/30/17 14:51 88 18 30 07/30/17 13:26 86 16 30 Intake and Output 07/30/17 07/31/17 19:00 07:00 Intake Total 350 ml 575 ml Output Total 510 ml 450 ml Balance -160 ml 125 ml IV Total 350 ml 575 ml Output Urine Total 510 ml 450 ml # Bowel Movements 1 Laboratory Tests 07/31/17 05:50: White Blood Count 9.4, Red Blood Count 3.30L, Hemoglobin 10.0L, Hematocrit 32.0L , Mean Corpuscular Volume 97, Mean Corpuscular Hemoglobin 30.3, Mean Corpuscular Hemoglobin Concent 31.2L, Red Cell Distribution Width 15.6H, Platelet Count 188, Mean Platelet Volume 7.4, Neutrophils (%) (Auto) 72.2, Lymphocytes (%) (Auto) 16.5L, Monocytes (%) (Auto) 9.7, Eosinophils (%) (Auto) 1.0, Basophils (%) (Auto) 0.6, Sodium Level 136, Potassium Level 3.0L, Chloride Level 100, Carbon Dioxide Level 27, Anion Gap 9, Blood Urea Nitrogen 7, Creatinine 0.7, Estimat Glomerular Filtration Rate > 60, Glucose Level 90, Calcium Level 8.6 Height (Feet): 5 Height (Inches): 4.10 Weight (Pounds): 250 General Appearance: no apparent distress Respiratory/Chest: decreased breath sounds Abdomen: non tender, soft Uche Leon Jul 31, 2017 12:50
[2017-07-31 16:00] VITALS: BP 129/84
--- NOTE | 2017-07-31 16:20 | Diagnostic Imaging Report ---
Indication: Dyspnea Technique: XRAY Chest 1v Comparison: 07/30/2017 Findings: Heart size and mediastinal contours are stable. Tracheostomy tube and portions of a ventricular peritoneal catheter unchanged. Persistent left suprahilar infiltrate. Previously seen right-sided opacities are decreased. No pleural effusion. No pneumothorax. No acute osseous abnormality. Impression: Right-sided airspace opacities are slightly decreased. Left jessica-/suprahilar opacity is unchanged.
[2017-07-31] MEDS ORDERED: Tubing IV Secondary IV ONE ×2 (17:16→18:50)
[2017-07-31 20:00] VITALS: BP 138/88
[2017-08-01] VITALS: BP 122/68
[2017-08-01] MEDS: Morphine Sulfate 2mg/ml Inj IVP PRN ×4 (02:59→18:36)
[2017-08-01 04:00] VITALS: BP 133/75
[2017-08-01 04:36] LABS: BASOPHILS % (AUTO) 0.8 % (0.0-2.0); HEMATOCRIT 32.6 % (37.0-47.0); HEMOGLOBIN 10.2 G/DL (12.0-16.0); MEAN CORPUSCULAR VOLUME 96 FL (80-99); MONOCYTES % (AUTO) 7.9 % (1.0-10.0); NEUTROPHILS % (AUTO) 71.4 % (45.0-75.0); PLATELET COUNT 225 K/UL (150-450); RED CELL DISTRIBUTION WIDTH 14.8 % (11.6-14.8); WHITE BLOOD COUNT 8.5 K/UL (4.8-10.8)
[2017-08-01 05:16] LABS: ALANINE AMINOTRANSFERASE 14 U/L (12-78); ALBUMIN 2.6 G/DL (3.4-5.0); ALBUMIN/GLOBULIN RATIO 0.6 (1.0-2.7); ALKALINE PHOSPHATASE 50 U/L (46-116); ANION GAP 9 mmol/L (5-15); ASPARTATE AMINO TRANSFERASE 10 U/L (15-37); BILIRUBIN,TOTAL 0.5 MG/DL (0.2-1.0); BLOOD UREA NITROGEN 5 mg/dL (7-18); CALCIUM 9.2 MG/DL (8.5-10.1); CARBON DIOXIDE 29 MMOL/L (21-32); CHLORIDE 100 MMOL/L (98-107); CREATININE 0.7 MG/DL (0.55-1.30); PHOSPHORUS 2.4 MG/DL (2.5-4.9); POTASSIUM 3.3 MMOL/L (3.5-5.1); SODIUM 137 MMOL/L (136-145)
[2017-08-01 08:00] VITALS: BP 125/70
[2017-08-01] MEDS: Heparin 5000 units/ml inj SUBQ SCH ×2 (08:36→20:40)
[2017-08-01] MEDS: Docusate 100mg cap ORAL SCH ×2 (09:00→18:00)
--- NOTE | 2017-08-01 09:21 | Pulmonolgy Critical Care Note ---
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) shunt status Assessment/Plan: Respiratory: monitor respiratory rate, adjust FIO2, CXR Cardiac: continue to monitor HR/BP Renal: F/U I&O, keep IV fluid Infectious Disease: check cultures Gastrointestinal: continue feedings/current rate, hold feedings Hematologic: monitor H/H, transfuse if hgb<8.5 Neurologic: PRN Ativan, PRN Morphine, keep patient comfortable Notes Reviewed: technical buyer, renal Discussed with: nurses, consultants Critical Care - Objective Last 24 Hour Vital Signs Date Time Temp Pulse Resp B/P (MAP) Pulse Ox O2 Delivery O2 Flow Rate FiO2 08/01/17 07:19 82 14 30 08/01/17 05:09 96 14 30 08/01/17 04:00 98.4 92 14 133/75 100 Mechanical Ventilator 30 08/01/17 04:00 87 08/01/17 04:00 30 08/01/17 03:00 87 17 30 08/01/17 01:45 84 14 30 08/01/17 00:00 30 08/01/17 00:00 98.0 87 14 122/68 100 Mechanical Ventilator 30 08/01/17 00:00 85 07/31/17 23:03 90 14 30 07/31/17 20:45 101 16 30 07/31/17 20:00 98.1 96 14 138/88 100 Mechanical Ventilator 30 07/31/17 20:00 93 07/31/17 20:00 30 07/31/17 19:03 93 16 30 07/31/17 17:31 97.6 07/31/17 17:29 89 14 30 07/31/17 16:00 98.2 95 14 129/84 99 Mechanical Ventilator 30 07/31/17 16:00 30 07/31/17 16:00 95 07/31/17 14:48 91 14 30 07/31/17 14:20 30 07/31/17 13:13 92 27 30 07/31/17 12:00 98.1 61 14 155/70 99 Mechanical Ventilator 30 07/31/17 12:00 91 07/31/17 11:42 92 28 30 07/31/17 11:30 30 1/22/18 11:03 100 26 30 07/31/17 09:27 85 14 30 Condition: critical, grave Neck: full ROM Lungs: chest wall tender Heart: HR/BP unstable, regular Abdomen: active bowel sounds Extremities: no C/C/E, edema Accucheck: 119 Critical Care - Subjective ROS Limited/Unobtainable: Yes Intubation Day: s/p trach Interval Events: refusing NG tube or Gtube Condition: critical FI02: 30 Vent Support Breath Rate: 14 Vent Support Mode: AC Vent Tidal Volume: 600 Sputum Amount: Scant PEEP: 0.0 PIP: 38 I&O: Intake and Output 07/31/17 08/01/17 19:00 07:00 Intake Total 650 ml 600 ml Output Total 320 ml 450 ml Balance 330 ml 150 ml IV Total 650 ml 600 ml Output Urine Total 320 ml 450 ml # Bowel Movements 1 3 CXR: no changes Labs: Laboratory Tests Test 08/01/17 03:15 White Blood Count 8.5 K/UL (4.8-10.8) Red Blood Count 3.40 M/UL (4.20-5.40) L Hemoglobin 10.2 G/DL (12.0-16.0) L Hematocrit 32.6 % (37.0-47.0) L Mean Corpuscular Volume 96 FL (80-99) Mean Corpuscular Hemoglobin 30.0 PG (27.0-31.0) Mean Corpuscular Hemoglobin Concent 31.3 G/DL (32.0-36.0) L Red Cell Distribution Width 14.8 % (11.6-14.8) Platelet Count 225 K/UL (150-450) Mean Platelet Volume 7.9 FL (6.5-10.1) Neutrophils (%) (Auto) 71.4 % (45.0-75.0) Lymphocytes (%) (Auto) 19.0 % (20.0-45.0) L Monocytes (%) (Auto) 7.9 % (1.0-10.0) Eosinophils (%) (Auto) 1.0 % (0.0-3.0) Basophils (%) (Auto) 0.8 % (0.0-2.0) Sodium Level 137 MMOL/L (136-145) Potassium Level 3.3 MMOL/L (3.5-5.1) L Chloride Level 100 MMOL/L (98-107) Carbon Dioxide Level 29 MMOL/L (21-32) Anion Gap 9 mmol/L (5-15) Blood Urea Nitrogen 5 mg/dL (7-18) L Creatinine 0.7 MG/DL (0.55-1.30) Estimat Glomerular Filtration Rate > 60 mL/min (>60) Glucose Level 87 MG/DL (74-106) Calcium Level 9.2 MG/DL (8.5-10.1) Phosphorus Level 2.4 MG/DL (2.5-4.9) L Magnesium Level 1.7 MG/DL (1.8-2.4) L Total Bilirubin 0.5 MG/DL (0.2-1.0) Aspartate Amino Transf (AST/SGOT) 10 U/L (15-37) L Alanine Aminotransferase (ALT/SGPT) 14 U/L (12-78) Alkaline Phosphatase 50 U/L (46-116) Total Protein 7.0 G/DL (6.4-8.2) Albumin 2.6 G/DL (3.4-5.0) L Globulin 4.4 g/dL Albumin/Globulin Ratio 0.6 (1.0-2.7) L CRISTINA BRAMBILA Aug 01, 2017 09:21
[2017-08-01] MEDS ORDERED: Potassium Chloride 40 MEQ in Sodium Chloride 500ML 550 ML IVPB ONE (10:00)
[2017-08-01] MEDS: levETIRAcetam 500mg/NS100ml 100 ML IVPB SCH ×2 (11:10→20:39)
[2017-08-01 12:00] VITALS: BP 130/74
--- NOTE | 2017-08-01 13:18 | Infectious Diseases Prog Note ---
Assessment/Plan Assessment/Plan A: Asthma exacerbation- r/o Influenza, r/o bacterial bronchitis-possible PNA-; s/p Rx r/o fungal PNA- possibly ANNETTE, ?obesity hypoventilation syndrome contributing BiPAP on/off , C02 retention -CXR 07/24Cardiomegaly with persistent bilateral perihilar hazy opacities, slightly decreased on the right. -CXR: Bilateral diffuse infiltrates versus edema -sp cx normal tristen -HIV 2 ab neg, CrAg neg SP trach 07/29 Leukocytosis, SP -Cdiff 07/17 neg -Bcx Neg x4 -influenza test ordered, never done- treated empirically Plan: - Continue to monitor off abx -07/19 SP Levaquin #5 -07/17 SP Zosyn #7 -07/15 SP Tamiflu #5/5 -2 SP Levaquin #3 -Monitor CBC/BMP, temperatures; trend WBC- if continues to worsen will repeat cultures -aspiration precautions -f/u cocci ab Subjective Allergies: Coded Allergies: No Known Allergies (Unverified , 02/19/17) Subjective Afebrile Objective Vital Signs Last 24 Hour Vital Signs Date Time Temp Pulse Resp B/P (MAP) Pulse Ox O2 Delivery O2 Flow Rate FiO2 08/01/17 12:45 99 15 30 08/01/17 11:38 95 08/01/17 11:18 84 15 30 08/01/17 09:22 85 15 30 08/01/17 09:06 98.4 08/01/17 08:00 92 08/01/17 08:00 98.4 90 16 125/70 100 Mechanical Ventilator 30 08/01/17 08:00 30 08/01/17 07:19 82 14 30 08/01/17 05:09 96 14 30 08/01/17 04:00 98.4 92 14 133/75 100 Mechanical Ventilator 30 08/01/17 04:00 87 08/01/17 04:00 30 08/01/17 03:00 87 17 30 08/01/17 01:45 84 14 30 08/01/17 00:00 30 08/01/17 00:00 98.0 87 14 122/68 100 Mechanical Ventilator 30 08/01/17 00:00 85 07/31/17 23:03 90 14 30 07/31/17 20:45 101 16 30 07/31/17 20:00 98.1 96 14 138/88 100 Mechanical Ventilator 30 07/31/17 20:00 93 07/31/17 20:00 30 07/31/17 19:03 93 16 30 07/31/17 17:29 89 14 30 07/31/17 16:00 98.2 95 14 129/84 99 Mechanical Ventilator 30 07/31/17 16:00 30 07/31/17 16:00 95 07/31/17 14:48 91 14 30 07/31/17 14:20 30 Height (Feet): 5 Height (Inches): 4.10 Weight (Pounds): 250 HEENT: anicteric Respiratory/Chest: no respiratory distress Cardiovascular: regularly irregular Abdomen: no organomegaly Laboratory Tests Test 08/01/17 03:15 White Blood Count 8.5 K/UL (4.8-10.8) Red Blood Count 3.40 M/UL (4.20-5.40) L Hemoglobin 10.2 G/DL (12.0-16.0) L Hematocrit 32.6 % (37.0-47.0) L Mean Corpuscular Volume 96 FL (80-99) Mean Corpuscular Hemoglobin 30.0 PG (27.0-31.0) Mean Corpuscular Hemoglobin Concent 31.3 G/DL (32.0-36.0) L Red Cell Distribution Width 14.8 % (11.6-14.8) Platelet Count 225 K/UL (150-450) Mean Platelet Volume 7.9 FL (6.5-10.1) Neutrophils (%) (Auto) 71.4 % (45.0-75.0) Lymphocytes (%) (Auto) 19.0 % (20.0-45.0) L Monocytes (%) (Auto) 7.9 % (1.0-10.0) Eosinophils (%) (Auto) 1.0 % (0.0-3.0) Basophils (%) (Auto) 0.8 % (0.0-2.0) Sodium Level 137 MMOL/L (136-145) Potassium Level 3.3 MMOL/L (3.5-5.1) L Chloride Level 100 MMOL/L (98-107) Carbon Dioxide Level 29 MMOL/L (21-32) Anion Gap 9 mmol/L (5-15) Blood Urea Nitrogen 5 mg/dL (7-18) L Creatinine 0.7 MG/DL (0.55-1.30) Estimat Glomerular Filtration Rate > 60 mL/min (>60) Glucose Level 87 MG/DL (74-106) Calcium Level 9.2 MG/DL (8.5-10.1) Phosphorus Level 2.4 MG/DL (2.5-4.9) L Magnesium Level 1.7 MG/DL (1.8-2.4) L Total Bilirubin 0.5 MG/DL (0.2-1.0) Aspartate Amino Transf (AST/SGOT) 10 U/L (15-37) L Alanine Aminotransferase (ALT/SGPT) 14 U/L (12-78) Alkaline Phosphatase 50 U/L (46-116) Total Protein 7.0 G/DL (6.4-8.2) Albumin 2.6 G/DL (3.4-5.0) L Globulin 4.4 g/dL Albumin/Globulin Ratio 0.6 (1.0-2.7) L Current Medications Medications (Trade) Dose Ordered Sig/Selvin Route PRN Reason Start Time Stop Time Status Last Admin Dose Admin Acetaminophen (Tylenol) 650 mg Q4H PRN ORAL Mild Pain/Temp > 100.5 07/30/17 03:30 08/21/17 15:29 Albuterol/ Ipratropium (Albuterol/ Ipratropium) 3 ml Q4H PRN HHN Shortness of Breath 07/30/17 00:00 08/03/17 07:59 Amlodipine Besylate (Norvasc) 5 mg DAILY ORAL 07/30/17 09:00 08/09/17 09:44 Clonidine HCl (Catapres Tab) 0.1 mg Q6H PRN ORAL SBP > 160mmHg 07/30/17 03:30 08/27/17 15:29 Dextrose 1,000 ml @ 50 mls/hr Q20H IV 07/30/17 11:45 08/29/17 11:44 08/01/17 02:59 Docusate Sodium (Colace) 100 mg TWICE A DAY ORAL 07/30/17 09:00 08/09/17 09:44 Escitalopram Oxalate (Lexapro) 20 mg DAILY ORAL 07/30/17 09:00 08/14/17 08:59 Heparin Sodium (Porcine) (Heparin 5000 units/ml) 5,000 units EVERY 12 HOURS SUBQ 07/30/17 09:00 08/09/17 09:44 08/01/17 08:36 Levetiracetam 100 ml @ 400 mls/hr Q12HR IVPB 08/01/17 11:00 08/31/17 10:59 08/01/17 11:10 Morphine Sulfate (Morphine Sulfate) 2 mg Q4H PRN IVP Moderate Pain (Pain Scale 4-6) 07/30/17 03:30 08/04/17 15:29 08/01/17 08:36 Morphine Sulfate (Morphine Sulfate) 4 mg Q4H PRN IVP Severe Pain (Pain Scale 7-10) 07/30/17 03:30 08/04/17 15:29 Potassium Chloride 40 meq/ Sodium Chloride 570 ml @ 142.5 mls/ hr ONCE ONCE IVPB 08/01/17 10:00 08/01/17 13:59 08/01/17 10:25 Quetiapine Fumarate (SEROquel) 25 mg BEDTIME ORAL 07/30/17 21:00 08/17/17 20:59 JAYY HARMAN M.D. Aug 01, 2017 13:18
[2017-08-01 16:00] VITALS: BP 123/76
[2017-08-01 20:00] VITALS: BP 137/96
[2017-08-01] MEDS: Morphine Sulfate 4mg/ml Inj IVP PRN (22:23)
--- NOTE | 2017-08-01 23:25 | General Progress Note ---
Assessment/Plan Status: stable Assessment/Plan ASSESSMENT AND RECS: #. Anemia secondary to chronic disease. --> anemia w/u reviewed. --> Blood transfusion not required today. --> Monitor hemoglobin levels daily. #. Shortness of breath, related to underlying asthma exacerbation. --> On Levaquin for bacterial bronchitis. Continue per ID service. --> S/P trach/vent. #. Leukocytosis related to underlying steroids. --> Resolved. #. Asthma exacerbation with infiltrates noted. --> Continue Tamiflu. #. Elevated bicarb, potentially related to acidosis, retention of CO2. #. Hypoglycemia, potentially related to steroids. #. Seizure disorder, currently stable #. Malnutrition -->Cdiff negative, bcx neg x4 Subjective Date patient seen: Aug 01, 2017 Constitutional: Denies: no symptoms, chills, diaphoresis, fever, malaise, weakness, other HEENT: Denies: no symptoms, eye pain, blurred vision, tearing, double vision, ear pain, ear discharge, nose pain, nose congestion, throat pain, throat swelling, mouth pain, mouth swelling, other Cardiovascular: Denies: no symptoms, chest pain, edema, irregular heart rate, lightheadedness, palpitations, syncope, other Respiratory: Denies: no symptoms, cough, orthopnea, shortness of breath, SOB with excertion, SOB at rest, sputum, stridor, wheezing, other Gastrointestinal/Abdominal: Denies: no symptoms, abdomen distended, abdominal pain, black stools, tarry stools, blood in stool, constipated, diarrhea, difficulty swallowing, nausea, poor appetite, poor fluid intake, rectal bleeding , vomiting, other Hematologic/Lymphatic: Reports: anemia Allergies: Coded Allergies: No Known Allergies (Unverified , 02/19/17) Subjective On trach/vent. No new events overnight. Objective Last 24 Hour Vital Signs Date Time Temp Pulse Resp B/P (MAP) Pulse Ox O2 Delivery O2 Flow Rate FiO2 08/01/17 23:12 88 15 30 08/01/17 20:57 82 16 30 08/01/17 20:00 90 08/01/17 19:15 87 14 30 08/01/17 19:06 98.4 08/01/17 17:04 92 15 30 08/01/17 16:00 30 08/01/17 16:00 83 08/01/17 16:00 98.0 80 16 123/76 100 Mechanical Ventilator 30 08/01/17 14:47 98 15 30 08/01/17 12:45 99 15 30 08/01/17 12:00 30 08/01/17 12:00 98.2 88 16 130/74 100 Mechanical Ventilator 30 08/01/17 11:38 95 08/01/17 11:18 84 15 30 08/01/17 09:22 85 15 30 08/01/17 08:00 92 08/01/17 08:00 98.4 90 16 125/70 100 Mechanical Ventilator 30 08/01/17 08:00 30 08/01/17 07:19 82 14 30 08/01/17 05:09 96 14 30 08/01/17 04:00 98.4 92 14 133/75 100 Mechanical Ventilator 30 08/01/17 04:00 87 08/01/17 04:00 30 08/01/17 03:00 87 17 30 08/01/17 01:45 84 14 30 08/01/17 00:00 30 08/01/17 00:00 98.0 87 14 122/68 100 Mechanical Ventilator 30 08/01/17 00:00 85 Intake and Output 07/31/17 08/01/17 19:00 07:00 Intake Total 650 ml 600 ml Output Total 320 ml 450 ml Balance 330 ml 150 ml IV Total 650 ml 600 ml Output Urine Total 320 ml 450 ml # Bowel Movements 1 3 Laboratory Tests 08/01/17 03:15: White Blood Count 8.5, Red Blood Count 3.40L, Hemoglobin 10.2L, Hematocrit 32.6L , Mean Corpuscular Volume 96, Mean Corpuscular Hemoglobin 30.0, Mean Corpuscular Hemoglobin Concent 31.3L, Red Cell Distribution Width 14.8, Platelet Count 225, Mean Platelet Volume 7.9, Neutrophils (%) (Auto) 71.4, Lymphocytes (%) (Auto) 19.0L, Monocytes (%) (Auto) 7.9, Eosinophils (%) (Auto) 1.0, Basophils (%) (Auto) 0.8, Sodium Level 137, Potassium Level 3.3L, Chloride Level 100, Carbon Dioxide Level 29, Anion Gap 9, Blood Urea Nitrogen 5L, Creatinine 0.7, Estimat Glomerular Filtration Rate > 60, Glucose Level 87, Calcium Level 9.2, Phosphorus Level 2.4L, Magnesium Level 1.7L, Total Bilirubin 0.5, Aspartate Amino Transf (AST/SGOT) 10L, Alanine Aminotransferase (ALT/SGPT) 14, Alkaline Phosphatase 50, Total Protein 7.0, Albumin 2.6L, Globulin 4.4, Albumin/Globulin Ratio 0.6L Height (Feet): 5 Height (Inches): 4.10 Weight (Pounds): 250 General Appearance: no apparent distress EENT: normal ENT inspection Respiratory/Chest: decreased breath sounds Abdomen: soft Uche Leon Aug 01, 2017 23:25
[2017-08-02] VITALS: BP 136/75
[2017-08-02] MEDS: Morphine Sulfate 4mg/ml Inj IVP PRN ×4 (02:42→15:45)
[2017-08-02 04:00] VITALS: BP 127/68
[2017-08-02 05:19] LABS: BASOPHILS % (AUTO) 1.2 % (0.0-2.0); EOSINOPHILS % (AUTO) 0.5 % (0.0-3.0); HEMATOCRIT 32.7 % (37.0-47.0); HEMOGLOBIN 10.1 G/DL (12.0-16.0); LYMPHOCYTES % (AUTO) 15.4 % (20.0-45.0); MEAN CORPUSCULAR VOLUME 99 FL (80-99); MONOCYTES % (AUTO) 11.1 % (1.0-10.0); NEUTROPHILS % (AUTO) 71.8 % (45.0-75.0); PLATELET COUNT 212 K/UL (150-450); RED BLOOD COUNT 3.31 M/UL (4.20-5.40); RED CELL DISTRIBUTION WIDTH 15.5 % (11.6-14.8)
[2017-08-02 06:03] LABS: ALANINE AMINOTRANSFERASE 14 U/L (12-78); ALBUMIN 2.7 G/DL (3.4-5.0); ALBUMIN/GLOBULIN RATIO 0.6 (1.0-2.7); ALKALINE PHOSPHATASE 54 U/L (46-116); ANION GAP 16 mmol/L (5-15); ASPARTATE AMINO TRANSFERASE 15 U/L (15-37); BILIRUBIN,TOTAL 0.4 MG/DL (0.2-1.0); BLOOD UREA NITROGEN 5 mg/dL (7-18); CALCIUM 9.2 MG/DL (8.5-10.1); CARBON DIOXIDE 22 MMOL/L (21-32); CHLORIDE 100 MMOL/L (98-107); CREATININE 0.8 MG/DL (0.55-1.30); POTASSIUM 3.6 MMOL/L (3.5-5.1); SODIUM 138 MMOL/L (136-145)
[2017-08-02 08:00] VITALS: BP 134/85
[2017-08-02] MEDS: Docusate 100mg cap ORAL SCH ×2 (09:01→17:20)
[2017-08-02] MEDS: Heparin 5000 units/ml inj SUBQ SCH ×2 (09:04→20:16)
[2017-08-02] MEDS: levETIRAcetam 500mg/NS100ml 100 ML IVPB SCH ×3 (09:06→20:18)
--- NOTE | 2017-08-02 09:39 | Diagnostic Imaging Report ---
Indication: Dyspnea Technique: One view of the chest Comparison: 07/31/2017 Findings: Right midlung patchy opacities are somewhat more evident than on the previous study. Tracheostomy, right ventricular peritoneal shunt tubing remain. Heart size is normal Impression: Apparent increased right lung opacities, over 2 days, could represent developing or increased patchy infiltrates.. Recommend follow-up radiographs as indicated Other stable findings as noted
--- NOTE | 2017-08-02 10:50 | Pulmonology Progress Note ---
Assessment/Plan Problems: (1) Acute hypercapnic respiratory failure (2) Asthma exacerbation (3) Aspiration pneumonia (4) Ventriculo-peritoneal shunt status Assessment/Plan Cardiac: continue to monitor HR/BP Renal: check electrolytes Infectious Disease: check cultures Gastrointestinal: continue feedings/current rate Endocrine: monitor blood sugar Hematologic: monitor H/H, transfuse if hgb<8.5 Neurologic: PRN Morphine, keep patient comfortable Prophylaxis: Protonix, Heparin Time Spent (Minutes): 40 Notes Reviewed: pocket stitcher, cardio Discussed with: nurses, consultants, caseworker protective services Subjective ROS Limited/Unobtainable: No Constitutional: Reports: no symptoms HEENT: Repors: no symptoms Respiratory: Reports: no symptoms, other Allergies: Coded Allergies: No Known Allergies (Unverified , 02/19/17) Objective Last 24 Hour Vital Signs Date Time Temp Pulse Resp B/P (MAP) Pulse Ox O2 Delivery O2 Flow Rate FiO2 08/02/17 10:40 84 14 30 08/02/17 09:13 91 14 30 08/02/17 09:02 80 134/85 08/02/17 08:00 98.3 80 14 134/85 98 Mechanical Ventilator 30 08/02/17 07:47 85 08/02/17 07:47 30 08/02/17 06:35 75 14 30 08/02/17 05:15 86 16 30 08/02/17 04:00 74 08/02/17 04:00 30 08/02/17 04:00 98.5 86 14 127/68 97 Mechanical Ventilator 30 08/02/17 03:11 85 16 30 08/02/17 01:21 91 16 30 08/02/17 00:00 30 08/02/17 00:00 98.6 91 15 136/75 100 Mechanical Ventilator 30 08/02/17 00:00 95 08/01/17 23:12 88 15 30 08/01/17 20:57 82 16 30 08/01/17 20:00 30 08/01/17 20:00 90 08/01/17 20:00 98.8 91 14 137/96 100 Mechanical Ventilator 30 08/01/17 19:15 87 14 30 08/01/17 19:06 98.4 08/01/17 17:04 92 15 30 08/01/17 16:00 30 08/01/17 16:00 83 08/01/17 16:00 98.0 80 16 123/76 100 Mechanical Ventilator 30 08/01/17 14:47 98 15 30 08/01/17 12:45 99 15 30 08/01/17 12:00 30 08/01/17 12:00 98.2 88 16 130/74 100 Mechanical Ventilator 30 08/01/17 11:38 95 08/01/17 11:18 84 15 30 Intake and Output 08/01/17 08/02/17 19:00 07:00 Intake Total 700 ml 1000 ml Output Total 700 ml 590 ml Balance 0 ml 410 ml IV Total 700 ml 1000 ml Output Urine Total 700 ml 590 ml Objective Lines, tubes and drains: peripheral HEENT: normocephalic Neck: non-tender, normal alignment, supple Respiratory/Chest: chest wall non-tender, crackles/rales, rhonchi - left, rhonchi - right Cardiovascular/Chest: normal peripheral pulses, normal rate Abdomen: normal bowel sounds, non tender Genitourinary/Rectal: normal genital exam, normal rectal exam, normal prostate exam Extremities: normal range of motion Laboratory Tests 08/02/17 03:20: White Blood Count 8.0, Red Blood Count 3.31L, Hemoglobin 10.1L, Hematocrit 32.7L , Mean Corpuscular Volume 99, Mean Corpuscular Hemoglobin 30.5, Mean Corpuscular Hemoglobin Concent 31.0L, Red Cell Distribution Width 15.5H, Platelet Count 212, Mean Platelet Volume 6.4L, Neutrophils (%) (Auto) 71.8, Lymphocytes (%) (Auto) 15.4L, Monocytes (%) (Auto) 11.1H, Eosinophils (%) (Auto ) 0.5, Basophils (%) (Auto) 1.2, Sodium Level 138, Potassium Level 3.6, Chloride Level 100, Carbon Dioxide Level 22, Anion Gap 16H, Blood Urea Nitrogen 5L, Creatinine 0.8, Estimat Glomerular Filtration Rate > 60, Glucose Level 67L, Calcium Level 9.2, Total Bilirubin 0.4, Aspartate Amino Transf (AST/SGOT) 15, Alanine Aminotransferase (ALT/SGPT) 14, Alkaline Phosphatase 54, Pro-B-Type Natriuretic Peptide 40, Total Protein 6.9, Albumin 2.7L, Globulin 4.2, Albumin/ Globulin Ratio 0.6L Current Medications Medications (Trade) Dose Ordered Sig/Selvin Route PRN Reason Start Time Stop Time Status Last Admin Dose Admin Acetaminophen (Tylenol) 650 mg Q4H PRN ORAL Mild Pain/Temp > 100.5 07/30/17 03:30 08/21/17 15:29 Albuterol/ Ipratropium (Albuterol/ Ipratropium) 3 ml Q4H PRN HHN Shortness of Breath 07/30/17 00:00 08/03/17 07:59 Amlodipine Besylate (Norvasc) 5 mg DAILY ORAL 07/30/17 09:00 08/09/17 09:44 08/02/17 09:02 Clonidine HCl (Catapres Tab) 0.1 mg Q6H PRN ORAL SBP > 160mmHg 07/30/17 03:30 08/27/17 15:29 Dextrose 1,000 ml @ 50 mls/hr Q20H IV 07/30/17 11:45 08/29/17 11:44 08/02/17 05:30 Docusate Sodium (Colace) 100 mg TWICE A DAY ORAL 07/30/17 09:00 08/09/17 09:44 08/02/17 09:01 Escitalopram Oxalate (Lexapro) 20 mg DAILY ORAL 07/30/17 09:00 08/14/17 08:59 08/02/17 09:01 Heparin Sodium (Porcine) (Heparin 5000 units/ml) 5,000 units EVERY 12 HOURS SUBQ 07/30/17 09:00 08/09/17 09:44 08/02/17 09:04 Levetiracetam 100 ml @ 400 mls/hr Q12HR IVPB 08/01/17 11:00 08/31/17 10:59 08/02/17 09:06 Morphine Sulfate (Morphine Sulfate) 2 mg Q4H PRN IVP Moderate Pain (Pain Scale 4-6) 07/30/17 03:30 08/04/17 15:29 08/01/17 18:36 Morphine Sulfate (Morphine Sulfate) 4 mg Q4H PRN IVP Severe Pain (Pain Scale 7-10) 07/30/17 03:30 08/04/17 15:29 08/02/17 06:58 Quetiapine Fumarate (SEROquel) 25 mg BEDTIME ORAL 07/30/17 21:00 08/17/17 20:59 08/01/17 20:39 CRISTINA BRAMBILA Aug 02, 2017 10:50
[2017-08-02 12:00] VITALS: BP 121/74
--- NOTE | 2017-08-02 12:56 | Infectious Diseases Prog Note ---
Assessment/Plan Assessment/Plan A: Asthma exacerbation- r/o Influenza, r/o bacterial bronchitis-possible PNA-; s/p Rx r/o fungal PNA- possibly ANNETTE, ?obesity hypoventilation syndrome contributing BiPAP on/off , C02 retention -CXR 08/02 Apparent increased right lung opacities, over 2 days, could represent developing or increased patchy infiltrates -CXR: Bilateral diffuse infiltrates versus edema -sp cx normal tristen -HIV 07/11 ab neg, CrAg neg SP trach 07/29 Leukocytosis, SP -Cdiff 07/17 neg -Bcx Neg x4 -influenza test ordered, never done- treated empirically Plan: - Continue to monitor off abx -07/19 SP Levaquin #5 -07/17 SP Zosyn #7 -07/15 SP Tamiflu #5/5 -2 SP Levaquin #3 -Monitor CBC/BMP, temperatures; -aspiration precautions -f/u cocci ab Subjective Allergies: Coded Allergies: No Known Allergies (Unverified , 02/19/17) Subjective Afebrile no new complain Objective Vital Signs Last 24 Hour Vital Signs Date Time Temp Pulse Resp B/P (MAP) Pulse Ox O2 Delivery O2 Flow Rate FiO2 08/02/17 11:32 75 08/02/17 11:32 30 08/02/17 10:40 84 14 30 08/02/17 09:13 91 14 30 08/02/17 09:02 80 134/85 08/02/17 08:00 98.3 80 14 134/85 98 Mechanical Ventilator 30 08/02/17 07:47 85 08/02/17 07:47 30 08/02/17 06:35 75 14 30 08/02/17 05:15 86 16 30 08/02/17 04:00 74 08/02/17 04:00 30 08/02/17 04:00 98.5 86 14 127/68 97 Mechanical Ventilator 30 08/02/17 03:11 85 16 30 08/02/17 01:21 91 16 30 08/02/17 00:00 30 08/02/17 00:00 98.6 91 15 136/75 100 Mechanical Ventilator 30 08/02/17 00:00 95 08/01/17 23:12 88 15 30 08/01/17 20:57 82 16 30 08/01/17 20:00 30 08/01/17 20:00 90 08/01/17 20:00 98.8 91 14 137/96 100 Mechanical Ventilator 30 08/01/17 19:15 87 14 30 08/01/17 19:06 98.4 08/01/17 17:04 92 15 30 08/01/17 16:00 30 08/01/17 16:00 83 08/01/17 16:00 98.0 80 16 123/76 100 Mechanical Ventilator 30 08/01/17 14:47 98 15 30 Height (Feet): 5 Height (Inches): 4.10 Weight (Pounds): 250 HEENT: mucous membranes moist Respiratory/Chest: no respiratory distress Cardiovascular: no gallop/murmur Abdomen: no organomegaly Laboratory Tests Test 08/02/17 03:20 White Blood Count 8.0 K/UL (4.8-10.8) Red Blood Count 3.31 M/UL (4.20-5.40) L Hemoglobin 10.1 G/DL (12.0-16.0) L Hematocrit 32.7 % (37.0-47.0) L Mean Corpuscular Volume 99 FL (80-99) Mean Corpuscular Hemoglobin 30.5 PG (27.0-31.0) Mean Corpuscular Hemoglobin Concent 31.0 G/DL (32.0-36.0) L Red Cell Distribution Width 15.5 % (11.6-14.8) H Platelet Count 212 K/UL (150-450) Mean Platelet Volume 6.4 FL (6.5-10.1) L Neutrophils (%) (Auto) 71.8 % (45.0-75.0) Lymphocytes (%) (Auto) 15.4 % (20.0-45.0) L Monocytes (%) (Auto) 11.1 % (1.0-10.0) H Eosinophils (%) (Auto) 0.5 % (0.0-3.0) Basophils (%) (Auto) 1.2 % (0.0-2.0) Sodium Level 138 MMOL/L (136-145) Potassium Level 3.6 MMOL/L (3.5-5.1) Chloride Level 100 MMOL/L (98-107) Carbon Dioxide Level 22 MMOL/L (21-32) Anion Gap 16 mmol/L (5-15) H Blood Urea Nitrogen 5 mg/dL (7-18) L Creatinine 0.8 MG/DL (0.55-1.30) Estimat Glomerular Filtration Rate > 60 mL/min (>60) Glucose Level 67 MG/DL (74-106) L Calcium Level 9.2 MG/DL (8.5-10.1) Total Bilirubin 0.4 MG/DL (0.2-1.0) Aspartate Amino Transf (AST/SGOT) 15 U/L (15-37) Alanine Aminotransferase (ALT/SGPT) 14 U/L (12-78) Alkaline Phosphatase 54 U/L (46-116) Pro-B-Type Natriuretic Peptide 40 pg/mL (0-125) Total Protein 6.9 G/DL (6.4-8.2) Albumin 2.7 G/DL (3.4-5.0) L Globulin 4.2 g/dL Albumin/Globulin Ratio 0.6 (1.0-2.7) L Current Medications Medications (Trade) Dose Ordered Sig/Selvin Route PRN Reason Start Time Stop Time Status Last Admin Dose Admin Acetaminophen (Tylenol) 650 mg Q4H PRN ORAL Mild Pain/Temp > 100.5 07/30/17 03:30 08/21/17 15:29 Albuterol/ Ipratropium (Albuterol/ Ipratropium) 3 ml Q4H PRN HHN Shortness of Breath 07/30/17 00:00 08/03/17 07:59 Amlodipine Besylate (Norvasc) 5 mg DAILY ORAL 07/30/17 09:00 08/09/17 09:44 08/02/17 09:02 Clonidine HCl (Catapres Tab) 0.1 mg Q6H PRN ORAL SBP > 160mmHg 07/30/17 03:30 08/27/17 15:29 Dextrose 1,000 ml @ 50 mls/hr Q20H IV 07/30/17 11:45 08/29/17 11:44 08/02/17 05:30 Docusate Sodium (Colace) 100 mg TWICE A DAY ORAL 07/30/17 09:00 08/09/17 09:44 08/02/17 09:01 Escitalopram Oxalate (Lexapro) 20 mg DAILY ORAL 07/30/17 09:00 08/14/17 08:59 1/24/18 09:01 Heparin Sodium (Porcine) (Heparin 5000 units/ml) 5,000 units EVERY 12 HOURS SUBQ 07/30/17 09:00 08/09/17 09:44 08/02/17 09:04 Levetiracetam 100 ml @ 400 mls/hr Q12HR IVPB 08/01/17 11:00 08/31/17 10:59 08/02/17 09:06 Morphine Sulfate (Morphine Sulfate) 2 mg Q4H PRN IVP Moderate Pain (Pain Scale 4-6) 07/30/17 03:30 08/04/17 15:29 08/01/17 18:36 Morphine Sulfate (Morphine Sulfate) 4 mg Q4H PRN IVP Severe Pain (Pain Scale 7-10) 07/30/17 03:30 08/04/17 15:29 08/02/17 11:15 Quetiapine Fumarate (SEROquel) 25 mg BEDTIME ORAL 07/30/17 21:00 08/17/17 20:59 08/01/17 20:39 JAYY HARMAN M.D. Aug 02, 2017 12:56
[2017-08-02 16:00] VITALS: BP 122/72
[2017-08-02] MEDS: Morphine Sulfate 2mg/ml Inj IVP PRN ×2 (19:41→23:29)
[2017-08-02 20:00] VITALS: BP 133/85
--- NOTE | 2017-08-02 23:28 | General Progress Note ---
Assessment/Plan Status: stable Assessment/Plan ASSESSMENT AND RECS: #. Anemia secondary to chronic disease. --> anemia w/u reviewed. --> Blood transfusion not required today. Hgb >10 --> Monitor hemoglobin levels daily. #. Shortness of breath, related to underlying asthma exacerbation. --> On Levaquin for bacterial bronchitis. Continue per ID service. --> S/P trach/vent. #. Leukocytosis related to underlying steroids. --> Resolved. #. Asthma exacerbation with infiltrates noted. --> Continue Tamiflu. #. Elevated bicarb, potentially related to acidosis, retention of CO2. #. Hypoglycemia, potentially related to steroids. #. Seizure disorder, currently stable #. Malnutrition -->Cdiff negative, bcx neg x4 Subjective Date patient seen: Aug 02, 2017 Constitutional: Denies: no symptoms, chills, diaphoresis, fever, malaise, weakness, other HEENT: Denies: no symptoms, eye pain, blurred vision, tearing, double vision, ear pain, ear discharge, nose pain, nose congestion, throat pain, throat swelling, mouth pain, mouth swelling, other Cardiovascular: Denies: no symptoms, chest pain, edema, irregular heart rate, lightheadedness, palpitations, syncope, other Respiratory: Denies: no symptoms, cough, orthopnea, shortness of breath, SOB with excertion, SOB at rest, sputum, stridor, wheezing, other Gastrointestinal/Abdominal: Denies: no symptoms, abdomen distended, abdominal pain, black stools, tarry stools, blood in stool, constipated, diarrhea, difficulty swallowing, nausea, poor appetite, poor fluid intake, rectal bleeding , vomiting, other Genitourinary: Denies: no symptoms, burning, discharge, frequency, flank pain, hematuria, incontinence, pain, urgency, other Hematologic/Lymphatic: Reports: anemia Allergies: Coded Allergies: No Known Allergies (Unverified , 02/19/17) Subjective Remains on vent/trach. No new events overnight. Objective Last 24 Hour Vital Signs Date Time Temp Pulse Resp B/P (MAP) Pulse Ox O2 Delivery O2 Flow Rate FiO2 08/02/17 23:10 99 14 30 08/02/17 21:08 88 14 30 08/02/17 20:19 93 08/02/17 20:00 30 08/02/17 20:00 98.5 91 14 133/85 98 Mechanical Ventilator 30 08/02/17 19:35 90 14 30 08/02/17 16:38 91 14 30 08/02/17 16:05 79 08/02/17 16:05 30 08/02/17 16:00 98.4 79 16 122/72 96 Mechanical Ventilator 30 08/02/17 14:33 83 14 30 08/02/17 12:55 88 14 30 08/02/17 12:00 98.3 86 14 121/74 100 Mechanical Ventilator 30 08/02/17 11:32 75 08/02/17 11:32 30 08/02/17 10:40 84 14 30 08/02/17 09:13 91 14 30 08/02/17 09:02 80 134/85 08/02/17 08:00 98.3 80 14 134/85 98 Mechanical Ventilator 30 08/02/17 07:47 85 08/02/17 07:47 30 08/02/17 06:35 75 14 30 08/02/17 05:15 86 16 30 08/02/17 04:00 74 08/02/17 04:00 30 08/02/17 04:00 98.5 86 14 127/68 97 Mechanical Ventilator 30 08/02/17 03:11 85 16 30 08/02/17 01:21 91 16 30 08/02/17 00:00 30 08/02/17 00:00 98.6 91 15 136/75 100 Mechanical Ventilator 30 08/02/17 00:00 95 Intake and Output 08/01/17 08/02/17 19:00 07:00 Intake Total 700 ml 1000 ml Output Total 700 ml 590 ml Balance 0 ml 410 ml IV Total 700 ml 1000 ml Output Urine Total 700 ml 590 ml Laboratory Tests 08/02/17 03:20: White Blood Count 8.0, Red Blood Count 3.31L, Hemoglobin 10.1L, Hematocrit 32.7L , Mean Corpuscular Volume 99, Mean Corpuscular Hemoglobin 30.5, Mean Corpuscular Hemoglobin Concent 31.0L, Red Cell Distribution Width 15.5H, Platelet Count 212, Mean Platelet Volume 6.4L, Neutrophils (%) (Auto) 71.8, Lymphocytes (%) (Auto) 15.4L, Monocytes (%) (Auto) 11.1H, Eosinophils (%) (Auto ) 0.5, Basophils (%) (Auto) 1.2, Sodium Level 138, Potassium Level 3.6, Chloride Level 100, Carbon Dioxide Level 22, Anion Gap 16H, Blood Urea Nitrogen 5L, Creatinine 0.8, Estimat Glomerular Filtration Rate > 60, Glucose Level 67L, Calcium Level 9.2, Total Bilirubin 0.4, Aspartate Amino Transf (AST/SGOT) 15, Alanine Aminotransferase (ALT/SGPT) 14, Alkaline Phosphatase 54, Pro-B-Type Natriuretic Peptide 40, Total Protein 6.9, Albumin 2.7L, Globulin 4.2, Albumin/ Globulin Ratio 0.6L Height (Feet): 5 Height (Inches): 4.10 Weight (Pounds): 250 General Appearance: no apparent distress Neck: supple Respiratory/Chest: decreased breath sounds Abdomen: non tender, soft Uche Leon Aug 02, 2017 23:28
[2017-08-03] VITALS: BP 158/86
[2017-08-03] MEDS: Morphine Sulfate 2mg/ml Inj IVP PRN ×3 (03:47→23:27)
[2017-08-03 04:00] VITALS: BP 131/86
[2017-08-03 04:57] LABS: BASOPHILS % (AUTO) 0.6 % (0.0-2.0); EOSINOPHILS % (AUTO) 2.1 % (0.0-3.0); HEMATOCRIT 28.5 % (37.0-47.0); LYMPHOCYTES % (AUTO) 27.8 % (20.0-45.0); MEAN CORPUSCULAR VOLUME 96 FL (80-99); MONOCYTES % (AUTO) 9.6 % (1.0-10.0); PLATELET COUNT 241 K/UL (150-450); RED BLOOD COUNT 2.97 M/UL (4.20-5.40); RED CELL DISTRIBUTION WIDTH 14.6 % (11.6-14.8); WHITE BLOOD COUNT 6.3 K/UL (4.8-10.8)
[2017-08-03 05:17] LABS: ALANINE AMINOTRANSFERASE 14 U/L (12-78); ALBUMIN 2.4 G/DL (3.4-5.0); ALBUMIN/GLOBULIN RATIO 0.6 (1.0-2.7); ALKALINE PHOSPHATASE 43 U/L (46-116); ANION GAP 7 mmol/L (5-15); ASPARTATE AMINO TRANSFERASE 8 U/L (15-37); BILIRUBIN,TOTAL 0.3 MG/DL (0.2-1.0); BLOOD UREA NITROGEN 3 mg/dL (7-18); CALCIUM 8.9 MG/DL (8.5-10.1); CARBON DIOXIDE 30 MMOL/L (21-32); CHLORIDE 101 MMOL/L (98-107); CREATININE 0.7 MG/DL (0.55-1.30); POTASSIUM 3.3 MMOL/L (3.5-5.1); SODIUM 138 MMOL/L (136-145)
[2017-08-03 08:00] VITALS: BP 116/69
[2017-08-03] MEDS: Morphine Sulfate 4mg/ml Inj IVP PRN ×2 (08:20→14:16)
[2017-08-03] MEDS: Docusate 100mg cap ORAL SCH ×2 (08:53→17:31)
[2017-08-03] MEDS: Heparin 5000 units/ml inj SUBQ SCH ×2 (08:55→20:28)
--- NOTE | 2017-08-03 09:59 | Diagnostic Imaging Report ---
Indication: Dyspnea Technique: One view of the chest Comparison: 08/02/2017 Findings: Ill-defined and nodular right perihilar opacities persist, essentially unchanged. Atelectasis, scarring, or consolidation in the left perihilar region is unchanged. The heart size is normal. There is a tracheostomy. Right sided ventriculoperitoneal shunt tubing again demonstrated. Findings are overall unchanged Impression: Unchanged, over one day, findings as above.
--- NOTE | 2017-08-03 10:47 | Pulmonology Progress Note ---
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 Discussed with: nurses, consultants Subjective ROS Limited/Unobtainable: No Constitutional: Reports: no symptoms HEENT: Repors: no symptoms Respiratory: Reports: no symptoms, other Allergies: Coded Allergies: No Known Allergies (Unverified , 02/19/17) Objective Last 24 Hour Vital Signs Date Time Temp Pulse Resp B/P (MAP) Pulse Ox O2 Delivery O2 Flow Rate FiO2 08/03/17 09:40 80 16 30 08/03/17 08:53 81 116/69 08/03/17 08:00 30 08/03/17 08:00 98.0 81 16 116/69 98 Mechanical Ventilator 30 08/03/17 06:52 84 14 30 08/03/17 05:28 75 14 30 08/03/17 04:05 76 08/03/17 04:00 30 08/03/17 04:00 98.8 77 18 131/86 99 Mechanical Ventilator 30 08/03/17 03:24 88 14 30 08/03/17 01:23 97 14 30 08/03/17 00:03 77 08/03/17 00:00 98.2 90 14 158/86 99 Mechanical Ventilator 30 08/02/17 23:10 99 14 30 08/02/17 21:08 88 14 30 08/02/17 20:19 93 08/02/17 20:00 30 08/02/17 20:00 98.5 91 14 133/85 98 Mechanical Ventilator 30 08/02/17 19:35 90 14 30 08/02/17 16:38 91 14 30 08/02/17 16:05 79 08/02/17 16:05 30 08/02/17 16:00 98.4 79 16 122/72 96 Mechanical Ventilator 30 08/02/17 14:33 83 14 30 08/02/17 12:55 88 14 30 08/02/17 12:00 98.3 86 14 121/74 100 Mechanical Ventilator 30 08/02/17 11:32 75 08/02/17 11:32 30 Intake and Output 08/02/17 08/03/17 19:00 07:00 Intake Total 1050 ml 946.66 ml Output Total 650 ml 500 ml Balance 400 ml 446.66 ml Intake Oral 350 ml 100 ml IV Total 700 ml 846.66 ml Output Urine Total 650 ml 500 ml Objective Lines, tubes and drains: peripheral HEENT: normocephalic Neck: non-tender, normal alignment, supple Respiratory/Chest: chest wall non-tender, crackles/rales, rhonchi - left, rhonchi - right Cardiovascular/Chest: normal peripheral pulses, normal rate Abdomen: normal bowel sounds, non tender Genitourinary/Rectal: normal genital exam, normal rectal exam, normal prostate exam Extremities: normal range of motion Laboratory Tests 08/03/17 03:55: White Blood Count 6.3, Red Blood Count 2.97L, Hemoglobin 9.0L, Hematocrit 28.5L , Mean Corpuscular Volume 96, Mean Corpuscular Hemoglobin 30.4, Mean Corpuscular Hemoglobin Concent 31.6L, Red Cell Distribution Width 14.6, Platelet Count 241, Mean Platelet Volume 8.2, Neutrophils (%) (Auto) 60.0, Lymphocytes (%) (Auto) 27.8, Monocytes (%) (Auto) 9.6, Eosinophils (%) (Auto) 2.1, Basophils (%) (Auto) 0.6, Sodium Level 138, Potassium Level 3.3L, Chloride Level 101, Carbon Dioxide Level 30, Anion Gap 7, Blood Urea Nitrogen 3L, Creatinine 0.7, Estimat Glomerular Filtration Rate > 60, Glucose Level 85, Calcium Level 8.9, Total Bilirubin 0.3, Aspartate Amino Transf (AST/SGOT) 8L, Alanine Aminotransferase (ALT/SGPT) 14, Alkaline Phosphatase 43L, Pro-B-Type Natriuretic Peptide 32, Total Protein 6.4, Albumin 2.4L, Globulin 4.0, Albumin/ Globulin Ratio 0.6L Current Medications Medications (Trade) Dose Ordered Sig/Selvin Route PRN Reason Start Time Stop Time Status Last Admin Dose Admin Acetaminophen (Tylenol) 650 mg Q4H PRN ORAL Mild Pain/Temp > 100.5 07/30/17 03:30 08/21/17 15:29 Amlodipine Besylate (Norvasc) 5 mg DAILY ORAL 07/30/17 09:00 08/09/17 09:44 08/03/17 08:53 Clonidine HCl (Catapres Tab) 0.1 mg Q6H PRN ORAL SBP > 160mmHg 07/30/17 03:30 08/27/17 15:29 Dextrose 1,000 ml @ 50 mls/hr Q20H IV 07/30/17 11:45 08/29/17 11:44 08/02/17 19:40 Docusate Sodium (Colace) 100 mg TWICE A DAY ORAL 07/30/17 09:00 08/09/17 09:44 08/03/17 08:53 Escitalopram Oxalate (Lexapro) 20 mg DAILY ORAL 07/30/17 09:00 08/14/17 08:59 08/03/17 08:53 Heparin Sodium (Porcine) (Heparin 5000 units/ml) 5,000 units EVERY 12 HOURS SUBQ 07/30/17 09:00 08/09/17 09:44 08/03/17 08:55 Levetiracetam 100 ml @ 400 mls/hr Q12HR IVPB 08/01/17 11:00 08/31/17 10:59 08/02/17 20:18 Morphine Sulfate (Morphine Sulfate) 2 mg Q4H PRN IVP Moderate Pain (Pain Scale 4-6) 07/30/17 03:30 08/04/17 15:29 08/03/17 03:47 Morphine Sulfate (Morphine Sulfate) 4 mg Q4H PRN IVP Severe Pain (Pain Scale 7-10) 07/30/17 03:30 08/04/17 15:29 08/03/17 08:20 Quetiapine Fumarate (SEROquel) 25 mg BEDTIME ORAL 07/30/17 21:00 08/17/17 20:59 08/02/17 20:11 CRISTINA BRAMBILA Aug 03, 2017 10:47
[2017-08-03 12:00] VITALS: BP 139/83
[2017-08-03 16:00] VITALS: BP 120/84
[2017-08-03 20:00] VITALS: BP 121/87
[2017-08-03] MEDS: levETIRAcetam 500mg/NS100ml 100 ML IVPB SCH (20:27)
--- NOTE | 2017-08-03 21:41 | General Progress Note ---
Assessment/Plan Status: stable Assessment/Plan ASSESSMENT AND RECS: #. Anemia secondary to chronic disease. --> anemia w/u reviewed. --> Blood transfusion not required today. Hgb >9 --> Trend cbc daily. #. Shortness of breath, related to underlying asthma exacerbation. --> On Levaquin for bacterial bronchitis. Continue per ID service. --> S/P trach/vent. #. Leukocytosis related to underlying steroids. --> Resolved. #. Asthma exacerbation with infiltrates noted. --> Continue Tamiflu. #. Elevated bicarb, potentially related to acidosis, retention of CO2. #. Hypoglycemia, potentially related to steroids. #. Seizure disorder, currently stable #. Malnutrition -->Cdiff negative, bcx neg x4 Subjective Date patient seen: Aug 03, 2017 Constitutional: Denies: no symptoms, chills, diaphoresis, fever, malaise, weakness, other HEENT: Denies: no symptoms, eye pain, blurred vision, tearing, double vision, ear pain, ear discharge, nose pain, nose congestion, throat pain, throat swelling, mouth pain, mouth swelling, other Cardiovascular: Denies: no symptoms, chest pain, edema, irregular heart rate, lightheadedness, palpitations, syncope, other Respiratory: Denies: no symptoms, cough, orthopnea, shortness of breath, SOB with excertion, SOB at rest, sputum, stridor, wheezing, other Gastrointestinal/Abdominal: Denies: no symptoms, abdomen distended, abdominal pain, black stools, tarry stools, blood in stool, constipated, diarrhea, difficulty swallowing, nausea, poor appetite, poor fluid intake, rectal bleeding , vomiting, other Hematologic/Lymphatic: Reports: anemia Allergies: Coded Allergies: No Known Allergies (Unverified , 02/19/17) Subjective No fever or chills. On anticoag as needed. Objective Last 24 Hour Vital Signs Date Time Temp Pulse Resp B/P (MAP) Pulse Ox O2 Delivery O2 Flow Rate FiO2 08/03/17 21:06 84 14 30 08/03/17 20:00 98.4 99 14 121/87 99 Mechanical Ventilator 30 08/03/17 20:00 30 08/03/17 19:15 96 08/03/17 19:02 99.0 08/03/17 18:45 86 15 30 08/03/17 17:10 85 14 30 08/03/17 16:00 30 08/03/17 16:00 99.0 89 17 120/84 96 Mechanical Ventilator 30 08/03/17 16:00 88 08/03/17 15:02 96 15 30 08/03/17 13:37 95 17 30 08/03/17 12:00 30 08/03/17 12:00 85 08/03/17 12:00 98.0 99 23 139/83 94 Mechanical Ventilator 30 08/03/17 10:49 82 18 30 08/03/17 09:40 80 16 30 08/03/17 08:53 81 116/69 08/03/17 08:00 30 08/03/17 08:00 98.0 81 16 116/69 98 Mechanical Ventilator 30 08/03/17 08:00 81 08/03/17 06:52 84 14 30 08/03/17 05:28 75 14 30 08/03/17 04:05 76 08/03/17 04:00 30 08/03/17 04:00 98.8 77 18 131/86 99 Mechanical Ventilator 30 08/03/17 03:24 88 14 30 08/03/17 01:23 97 14 30 08/03/17 00:03 77 08/03/17 00:00 98.2 90 14 158/86 99 Mechanical Ventilator 30 08/02/17 23:10 99 14 30 Intake and Output 08/02/17 08/03/17 19:00 07:00 Intake Total 1050 ml 946.66 ml Output Total 650 ml 500 ml Balance 400 ml 446.66 ml Intake Oral 350 ml 100 ml IV Total 700 ml 846.66 ml Output Urine Total 650 ml 500 ml Laboratory Tests 08/03/17 03:55: White Blood Count 6.3, Red Blood Count 2.97L, Hemoglobin 9.0L, Hematocrit 28.5L , Mean Corpuscular Volume 96, Mean Corpuscular Hemoglobin 30.4, Mean Corpuscular Hemoglobin Concent 31.6L, Red Cell Distribution Width 14.6, Platelet Count 241, Mean Platelet Volume 8.2, Neutrophils (%) (Auto) 60.0, Lymphocytes (%) (Auto) 27.8, Monocytes (%) (Auto) 9.6, Eosinophils (%) (Auto) 2.1, Basophils (%) (Auto) 0.6, Sodium Level 138, Potassium Level 3.3L, Chloride Level 101, Carbon Dioxide Level 30, Anion Gap 7, Blood Urea Nitrogen 3L, Creatinine 0.7, Estimat Glomerular Filtration Rate > 60, Glucose Level 85, Calcium Level 8.9, Total Bilirubin 0.3, Aspartate Amino Transf (AST/SGOT) 8L, Alanine Aminotransferase (ALT/SGPT) 14, Alkaline Phosphatase 43L, Pro-B-Type Natriuretic Peptide 32, Total Protein 6.4, Albumin 2.4L, Globulin 4.0, Albumin/ Globulin Ratio 0.6L Height (Feet): 5 Height (Inches): 4.10 Weight (Pounds): 250 General Appearance: no apparent distress Neck: supple Cardiovascular: normal rate, regular rhythm Respiratory/Chest: lungs clear Abdomen: soft Uche Leon Aug 03, 2017 21:41
[2017-08-03] MEDS ORDERED: Albuterol ud Inhalation HHN PRN (22:15)
[2017-08-04] VITALS: BP 134/82
[2017-08-04 04:00] VITALS: BP 128/76
[2017-08-04] MEDS: Morphine Sulfate 2mg/ml Inj IVP PRN ×2 (04:30→09:08)
[2017-08-04 08:00] VITALS: BP 120/79
[2017-08-04] MEDS: Docusate 100mg cap ORAL SCH (09:06)
[2017-08-04] MEDS: levETIRAcetam 500mg/NS100ml 100 ML IVPB SCH (09:06)
[2017-08-04] MEDS: Heparin 5000 units/ml inj SUBQ SCH (09:07)
--- NOTE | 2017-08-04 11:05 | Pulmonology Progress Note ---
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 Discussed with: consultants, case manager specialist Subjective ROS Limited/Unobtainable: No Constitutional: Reports: no symptoms Respiratory: Reports: no symptoms Allergies: Coded Allergies: No Known Allergies (Unverified , 02/19/17) Objective Last 24 Hour Vital Signs Date Time Temp Pulse Resp B/P (MAP) Pulse Ox O2 Delivery O2 Flow Rate FiO2 08/04/17 09:35 98.1 08/04/17 09:25 75 14 30 08/04/17 09:06 72 120/79 08/04/17 08:00 30 08/04/17 08:00 98.1 72 14 120/79 99 Mechanical Ventilator 30 08/04/17 08:00 78 08/04/17 07:25 71 14 30 08/04/17 04:57 77 14 30 08/04/17 04:00 98.5 85 17 128/76 100 Mechanical Ventilator 30 08/04/17 04:00 30 08/04/17 03:50 90 08/04/17 03:09 84 14 30 08/04/17 01:16 83 14 30 08/04/17 00:00 30 08/04/17 00:00 98.7 86 14 134/82 97 Mechanical Ventilator 30 08/03/17 23:44 92 08/03/17 22:29 92 16 30 08/03/17 22:25 90 17 100 Mechanical Ventilator 08/03/17 22:10 98 16 100 Mechanical Ventilator 30 08/03/17 21:06 84 14 30 08/03/17 20:00 98.4 99 14 121/87 99 Mechanical Ventilator 30 08/03/17 20:00 30 08/03/17 19:15 96 08/03/17 18:45 86 15 30 08/03/17 17:10 85 14 30 08/03/17 16:00 30 08/03/17 16:00 99.0 89 17 120/84 96 Mechanical Ventilator 30 08/03/17 16:00 88 08/03/17 15:02 96 15 30 08/03/17 13:37 95 17 30 08/03/17 12:00 30 08/03/17 12:00 85 08/03/17 12:00 98.0 99 23 139/83 94 Mechanical Ventilator 30 Intake and Output 08/03/17 08/04/17 19:00 07:00 Intake Total 1457.507 ml 700 ml Output Total 800 ml 300 ml Balance 657.507 ml 400 ml Intake Oral 960 ml IV Total 497.507 ml 700 ml Output Urine Total 800 ml 300 ml # Bowel Movements 2 2 Objective Lines, tubes and drains: peripheral HEENT: normocephalic Neck: non-tender, normal alignment, supple Respiratory/Chest: chest wall non-tender, crackles/rales, rhonchi - left, rhonchi - right Cardiovascular/Chest: normal peripheral pulses, normal rate Abdomen: normal bowel sounds, non tender Genitourinary/Rectal: normal genital exam, normal rectal exam, normal prostate exam Extremities: normal range of motion Current Medications Medications (Trade) Dose Ordered Sig/Selvin Route PRN Reason Start Time Stop Time Status Last Admin Dose Admin Acetaminophen (Tylenol) 650 mg Q4H PRN ORAL Mild Pain/Temp > 100.5 07/30/17 03:30 08/21/17 15:29 Albuterol Sulfate (Proventil) 2.5 mg Q4H PRN HHN Shortness of Breath 08/03/17 22:15 08/08/17 22:14 Amlodipine Besylate (Norvasc) 5 mg DAILY ORAL 07/30/17 09:00 08/09/17 09:44 08/04/17 09:06 Clonidine HCl (Catapres Tab) 0.1 mg Q6H PRN ORAL SBP > 160mmHg 07/30/17 03:30 08/27/17 15:29 Dextrose 1,000 ml @ 50 mls/hr Q20H IV 07/30/17 11:45 08/29/17 11:44 08/03/17 15:43 Docusate Sodium (Colace) 100 mg TWICE A DAY ORAL 07/30/17 09:00 08/09/17 09:44 08/04/17 09:06 Escitalopram Oxalate (Lexapro) 20 mg DAILY ORAL 07/30/17 09:00 08/14/17 08:59 08/04/17 09:06 Heparin Sodium (Porcine) (Heparin 5000 units/ml) 5,000 units EVERY 12 HOURS SUBQ 07/30/17 09:00 08/09/17 09:44 08/04/17 09:07 Levetiracetam 100 ml @ 400 mls/hr Q12HR IVPB 08/01/17 11:00 08/31/17 10:59 08/04/17 09:06 Morphine Sulfate (Morphine Sulfate) 2 mg Q4H PRN IVP Moderate Pain (Pain Scale 4-6) 07/30/17 03:30 08/04/17 15:29 08/04/17 09:08 Morphine Sulfate (Morphine Sulfate) 4 mg Q4H PRN IVP Severe Pain (Pain Scale 7-10) 07/30/17 03:30 08/04/17 15:29 08/03/17 14:16 Quetiapine Fumarate (SEROquel) 25 mg BEDTIME ORAL 07/30/17 21:00 08/17/17 20:59 08/03/17 20:27 CRISTINA BRAMBILA Aug 04, 2017 11:05
[2017-08-04 12:00] VITALS: BP 118/66
--- NOTE | 2017-08-04 12:03 | Infectious Diseases Prog Note ---
Assessment/Plan Assessment/Plan A: Asthma exacerbation- r/o Influenza, r/o bacterial bronchitis-possible PNA-; s/p Rx r/o fungal PNA- possibly ANNETTE, ?obesity hypoventilation syndrome contributing BiPAP on/off , C02 retention -CXR 08/02 Apparent increased right lung opacities, over 2 days, could represent developing or increased patchy infiltrates -CXR: Bilateral diffuse infiltrates versus edema -sp cx normal tristen -HIV 07/11 ab neg, CrAg neg SP trach 07/29 Leukocytosis, SP -Cdiff 07/17 neg -Bcx Neg x4 -influenza test ordered, never done- treated empirically Plan: - Continue to monitor off abx -07/19 SP Levaquin #5 -07/17 SP Zosyn #7 -07/15 SP Tamiflu #5/5 -2 SP Levaquin #3 -Monitor CBC/BMP, temperatures; -aspiration precautions -f/u cocci ab cont resp support Subjective Constitutional: Denies: no symptoms, fever, chills, fatigue, anorexia, drenching sweats, other Allergies: Coded Allergies: No Known Allergies (Unverified , 02/19/17) Subjective Afebrile no new complain Objective Vital Signs Last 24 Hour Vital Signs Date Time Temp Pulse Resp B/P (MAP) Pulse Ox O2 Delivery O2 Flow Rate FiO2 08/04/17 10:30 76 14 30 08/04/17 09:35 98.1 08/04/17 09:25 75 14 30 08/04/17 09:06 72 120/79 08/04/17 08:00 30 08/04/17 08:00 98.1 72 14 120/79 99 Mechanical Ventilator 30 08/04/17 08:00 78 08/04/17 07:25 71 14 30 08/04/17 04:57 77 14 30 08/04/17 04:00 98.5 85 17 128/76 100 Mechanical Ventilator 30 08/04/17 04:00 30 08/04/17 03:50 90 08/04/17 03:09 84 14 30 08/04/17 01:16 83 14 30 08/04/17 00:00 30 08/04/17 00:00 98.7 86 14 134/82 97 Mechanical Ventilator 30 08/03/17 23:44 92 08/03/17 22:29 92 16 30 08/03/17 22:25 90 17 100 Mechanical Ventilator 08/03/17 22:10 98 16 100 Mechanical Ventilator 30 08/03/17 21:06 84 14 30 08/03/17 20:00 98.4 99 14 121/87 99 Mechanical Ventilator 30 08/03/17 20:00 30 08/03/17 19:15 96 08/03/17 18:45 86 15 30 08/03/17 17:10 85 14 30 08/03/17 16:00 30 08/03/17 16:00 99.0 89 17 120/84 96 Mechanical Ventilator 30 08/03/17 16:00 88 08/03/17 15:02 96 15 30 08/03/17 13:37 95 17 30 Height (Feet): 5 Height (Inches): 4.10 Weight (Pounds): 250 HEENT: anicteric Respiratory/Chest: normal breath sounds Cardiovascular: normal rate Abdomen: soft, non tender Current Medications Medications (Trade) Dose Ordered Sig/Selvin Route PRN Reason Start Time Stop Time Status Last Admin Dose Admin Acetaminophen (Tylenol) 650 mg Q4H PRN ORAL Mild Pain/Temp > 100.5 07/30/17 03:30 08/21/17 15:29 Albuterol Sulfate (Proventil) 2.5 mg Q4H PRN HHN Shortness of Breath 08/03/17 22:15 08/08/17 22:14 Amlodipine Besylate (Norvasc) 5 mg DAILY ORAL 07/30/17 09:00 08/09/17 09:44 08/04/17 09:06 Clonidine HCl (Catapres Tab) 0.1 mg Q6H PRN ORAL SBP > 160mmHg 07/30/17 03:30 08/27/17 15:29 Dextrose 1,000 ml @ 50 mls/hr Q20H IV 07/30/17 11:45 08/29/17 11:44 08/04/17 11:53 Docusate Sodium (Colace) 100 mg TWICE A DAY ORAL 07/30/17 09:00 08/09/17 09:44 08/04/17 09:06 Escitalopram Oxalate (Lexapro) 20 mg DAILY ORAL 07/30/17 09:00 08/14/17 08:59 08/04/17 09:06 Heparin Sodium (Porcine) (Heparin 5000 units/ml) 5,000 units EVERY 12 HOURS SUBQ 07/30/17 09:00 08/09/17 09:44 08/04/17 09:07 Levetiracetam 100 ml @ 400 mls/hr Q12HR IVPB 08/01/17 11:00 08/31/17 10:59 08/04/17 09:06 Morphine Sulfate (Morphine Sulfate) 2 mg Q4H PRN IVP Moderate Pain (Pain Scale 4-6) 07/30/17 03:30 08/04/17 15:29 08/04/17 09:08 Morphine Sulfate (Morphine Sulfate) 4 mg Q4H PRN IVP Severe Pain (Pain Scale 7-10) 07/30/17 03:30 08/04/17 15:29 08/03/17 14:16 Quetiapine Fumarate (SEROquel) 25 mg BEDTIME ORAL 07/30/17 21:00 08/17/17 20:59 08/03/17 20:27 JAYY HARMAN M.D. Aug 04, 2017 12:03
[2017-08-04] MEDS: Morphine Sulfate 4mg/ml Inj IVP PRN (14:31)
--- NOTE | 2017-08-04 14:35 | General Progress Note ---
Assessment/Plan Status: stable Assessment/Plan ASSESSMENT AND RECS: #. Anemia secondary to chronic disease. --> anemia w/u reviewed. --> Blood transfusion not required unless symptomatic or hgb <7. --> Trend cbc daily. #. Shortness of breath, related to underlying asthma exacerbation. --> On Levaquin for bacterial bronchitis. Continue per ID service. --> S/P trach/vent. #. Leukocytosis related to underlying steroids. --> Resolved. #. Asthma exacerbation with infiltrates noted. --> Continue Tamiflu. #. Elevated bicarb, potentially related to acidosis, retention of CO2. #. Hypoglycemia, potentially related to steroids. #. Seizure disorder, currently stable #. Malnutrition -->Cdiff negative, bcx neg x4 Subjective Date patient seen: Aug 04, 2017 Constitutional: Denies: no symptoms, chills, diaphoresis, fever, malaise, weakness, other HEENT: Denies: no symptoms, eye pain, blurred vision, tearing, double vision, ear pain, ear discharge, nose pain, nose congestion, throat pain, throat swelling, mouth pain, mouth swelling, other Cardiovascular: Denies: no symptoms, chest pain, edema, irregular heart rate, lightheadedness, palpitations, syncope, other Respiratory: Denies: no symptoms, cough, orthopnea, shortness of breath, SOB with excertion, SOB at rest, sputum, stridor, wheezing, other Gastrointestinal/Abdominal: Denies: no symptoms, abdomen distended, abdominal pain, black stools, tarry stools, blood in stool, constipated, diarrhea, difficulty swallowing, nausea, poor appetite, poor fluid intake, rectal bleeding , vomiting, other Allergies: Coded Allergies: No Known Allergies (Unverified , 02/19/17) Subjective Hemodynamically stable. Pending discharge. Objective Last 24 Hour Vital Signs Date Time Temp Pulse Resp B/P (MAP) Pulse Ox O2 Delivery O2 Flow Rate FiO2 08/04/17 12:40 77 14 30 08/04/17 12:00 89 08/04/17 10:30 76 14 30 08/04/17 09:35 98.1 08/04/17 09:25 75 14 30 08/04/17 09:06 72 120/79 08/04/17 08:00 30 08/04/17 08:00 98.1 72 14 120/79 99 Mechanical Ventilator 30 08/04/17 08:00 78 08/04/17 07:25 71 14 30 08/04/17 04:57 77 14 30 08/04/17 04:00 98.5 85 17 128/76 100 Mechanical Ventilator 30 08/04/17 04:00 30 08/04/17 03:50 90 08/04/17 03:09 84 14 30 08/04/17 01:16 83 14 30 08/04/17 00:00 30 08/04/17 00:00 98.7 86 14 134/82 97 Mechanical Ventilator 30 08/03/17 23:44 92 08/03/17 22:29 92 16 30 08/03/17 22:25 90 17 100 Mechanical Ventilator 08/03/17 22:10 98 16 100 Mechanical Ventilator 30 08/03/17 21:06 84 14 30 08/03/17 20:00 98.4 99 14 121/87 99 Mechanical Ventilator 30 08/03/17 20:00 30 08/03/17 19:15 96 08/03/17 18:45 86 15 30 08/03/17 17:10 85 14 30 08/03/17 16:00 30 08/03/17 16:00 99.0 89 17 120/84 96 Mechanical Ventilator 30 08/03/17 16:00 88 08/03/17 15:02 96 15 30 Intake and Output 08/03/17 08/04/17 19:00 07:00 Intake Total 1457.507 ml 700 ml Output Total 800 ml 300 ml Balance 657.507 ml 400 ml Intake Oral 960 ml IV Total 497.507 ml 700 ml Output Urine Total 800 ml 300 ml # Bowel Movements 2 2 Height (Feet): 5 Height (Inches): 4.10 Weight (Pounds): 250 General Appearance: no apparent distress Cardiovascular: normal rate, regular rhythm Respiratory/Chest: lungs clear Abdomen: soft, no organomegaly Uche Leon Aug 04, 2017 14:35
[2017-08-04 16:00] VITALS: BP 156/103
[2017-08-04] MEDS ORDERED: NS 275ml ONE (16:56)
[2017-08-04] MEDS ORDERED: Tubing IV Secondary IV ONE (16:56)
[2017-08-04] MEDS ORDERED: NS 500ML ONE (16:56)
[2017-08-04] MEDS ORDERED: D5W 275ml ONE (16:56)
--- NOTE | 2017-08-07 09:15 | Discharge Summary ---
Discharge Summary Hospital Course Date of Admission Jul 09, 2017 at 18:35 Date of Discharge Aug 04, 2017 at 16:57 Admitting Diagnosis asthma DARYA Haas is a 32 year old female who was admitted on Jul 09, 2017 at 18: 35 for Asthma Hospital Course dc summary #[id number] Discharge Medications New Medications: Quetiapine Fumarate* (Seroquel*) 25 Mg Tablet 25 MG ORAL BEDTIME for 30 Days, TAB Continued Medications: Amlodipine Besylate (Norvasc) 5 Mg Tablet 5 MG ORAL DAILY for 30 Days, #30 TAB Escitalopram Oxalate* (Lexapro*) 10 Mg Tablet 10 MG ORAL DAILY, #30 TAB Gabapentin* (Gabapentin*) 100 Mg Capsule 100 MG ORAL THREE TIMES A DAY for 30 Days, CAP Levetiracetam (Levetiracetam) 500 Mg Tablet 500 MG ORAL Q12HR, #60 TAB Theophylline (Theodur*) 100 Mg Tab.er.12h 100 MG ORAL EVERY 12 HOURS, #20 TAB Discharge Condition Upon Discharge: stable Discharge Disposition Patient was discharged to SNF/Subacute Facility(03) Discharge Diagnoses: Nabeel (Albertoeusebio)Ayleen NP Aug 07, 2017 09:15
--- NOTE | 2017-08-08 02:00 | Discharge Summary 2 SIG ---
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 Laboratory workup revealed significant leukocytosis. Chest x-ray showed right-sided lobar pneumonia. The patient initially required placement on 100% nonrebreathing mask and then placed on BiPAP.The patient was started on antibiotics. Pulmonary toilet provided. The patient was admitted for further management for acute asthma exacerbation and respiratory failure HOSPITAL COURSE: The patient admitted. The patient was on the BiPAP. Patient was followed up with ABG. The patient was started on the IV steroids and empiric antibiotics. ID closely followed. The patient initially was able to be weaned from the BiPAP. However, ABG continuously demonstrated persistent hypoxemia. The patient received a trial of Diamox without significant improvement. While off BiPAP, desaturated and required repeated placement on the BiPAP. Afterwards, the patient was unable to be weaned from the BiPAP. Condition discussed with the patient and her and they opted for tracheostomy. The patient subsequently undergone tracheostomy placement on 07/28/2017. Surgeon closely followed. Dressing subsequently removed. Tracheostomy site was clean, functional and intact. ABG revealed significant improvement with minimal CO2 retention - 47. The patient was connected to ventilator. The patient was started on the weaning protocol to trach collar. So far while in the hospital, unable to be weaned to trach collar. Status post treatment for acute asthma exacerbation, status post IV steroids. The patient was on the trial of theophylline. Status post antibiotic treatment. Sputum culture and blood culture were negative. Stool for C. difficile was negative. Influenza screen was ordered, but not done. The patient was empirically treated with Tamiflu as per ID recommendations. Blood pressure was managed with calcium channel beth and clonidine on as needed basis. Seizure precaution were maintained. Keppra was continued. DVT prophylaxis provided. The patient was working with physical and occupational therapists. The patient declined NG tube and G-tube placement. Swallow evaluation was done. The patient was able to swallow and was a good candidate for [place] valve. Speech therapy to be continued at the custodial facility. Diet prior to discharge was soft, easy to chew, as tolerated. The patient was able to tolerate diet. No signs of aspiration. Psychiatrist seen and evaluated the patient, diagnosed with major depressive disorder and anxiety. Psychiatrist optimized psychiatric medication regimen. Electrolytes were replaced as needed. While NPO, the patient was on gentle IV fluids. Drum Attendant followed for anemia. Anemia workup revealed anemia of chronic disease. No need for transfusion. Close monitoring of counts while at the facility. Placement was found at subacute facility. The patient agreed with the plan and was stable for discharge. FINAL DIAGNOSES: 1. Acute hypercapnic hypoxemic respiratory failure requiring BiPAP, recurrent. 2. Failure to wean from the BiPAP. 3. Status post tracheostomy on 07/28/2017. 4. Acute asthma exacerbation, resolved. 5. Probable obesity, hypoventilation syndrome with chronic carbon dioxide retention. 6. Possible obstructive sleep apnea. 7. Probable aspiration pneumonia, status post treatment. 8. Seizure disorder. 9. Major depressive disorder. 10. Anxiety. 11. Morbid obesity. 12. Anemia of chronic disease. 13. Ventriculoperitoneal shunt status. DISCHARGE MEDICATIONS: See medication reconciliation list. DISCHARGE INSTRUCTIONS: The patient was discharged to subacute custodial facility. Follow up with paper feeder and attending at the facility. Continue weaning to trach collar as tolerated. Continue speech therapy with [place] valve. Jennifer Hull M.D. Ayleen Lees ([facility]) N.PNazario DR: ESTRELLITA JOB#: [id number] CC: [id number]
== END 2017-08-04 16:57 | DRG 5 ==
LOC: EDBD 17:47 → EDBEDREQ 18:03 → EMR 18:14 → 2W 18:35 → EDBEDREQ 19:41 → 3E 07-14 18:16 → 2W 07-15 08:10 → ICU 07-28 15:09 → 2W 07-29 22:10
PROC: 5A1955Z Respiratory Ventilation, Greater than 96 Consecutive Hours (ICD-10-PCS; 2017-07-28)
PROC: 0B110F4 Bypass Trachea to Cutaneous with Tracheostomy Device, Open Approach (ICD-10-PCS; principal; 2017-07-28 12:30)
DX: J96.02 Acute respiratory failure with hypercapnia (principal); J69.0 Pneumonitis due to inhalation of food and vomit; J18.1 Lobar pneumonia, unspecified organism; E87.2 Acidosis; E46 Unspecified protein-calorie malnutrition; J44.0 Chronic obstructive pulmonary disease with (acute) lower respiratory infection; J45.901 Unspecified asthma with (acute) exacerbation; E66.2 Morbid (severe) obesity with alveolar hypoventilation; J44.1 Chronic obstructive pulmonary disease with (acute) exacerbation; Z98.2 Presence of cerebrospinal fluid drainage device; J20.9 Acute bronchitis, unspecified; G40.909 Epilepsy, unspecified, not intractable, without status epilepticus; E16.0 Drug-induced hypoglycemia without coma; T38.0X5A Adverse effect of glucocorticoids and synthetic analogues, initial encounter; Y92.239 Unspecified place in hospital as the place of occurrence of the external cause; F32.9 Major depressive disorder, single episode, unspecified; F41.9 Anxiety disorder, unspecified; Z68.41 Body mass index [BMI] 40.0-44.9, adult; G47.33 Obstructive sleep apnea (adult) (pediatric); D72.829 Elevated white blood cell count, unspecified
CPT/HCPCS: 36415; 36600; 71010; 71045; 71275; 80048; 80053; 80299; 82270; 82550; 82553; 82607; 82728; 82746; 82803; 82962; 83540; 83550; 83735; 83880; 84100; 84443; 84484; 85007; 85025; 85044; 85060; 85384; 85610; 85651; 85730; 86140; 86635; 86703; 87040; 87070; 87205; 87324; 87449; 93005; 94002; 94003; 94150; 94640; 94660; 94664; 94760; 99285; J2250; J2405; J2765; J7620; J8499